=== PATIENT | male | born 1980 | race Caucasian/White ===

== ENCOUNTER 2023-02-12 19:35 | Emergency (ER) | payer OTHER, SELFPAY ==
[2023-02-12] VITALS (7 sets, daily range): BP systolic 122–131; BP diastolic 74–89; PULSE 93; RESP 16; TEMP 36.5; O2SAT 98–100; BMI 21.3
--- NOTE | 2023-02-12 19:53 | ED_ITS ---
HPI - Abdominal Pain General Chief Complaint: Abdominal Pain Stated Complaint: ABDOMINAL PAIN, FEVER AT NIGHT, HEADACHE Time Seen by Provider: 02/12/23 19:44 Source: patient Mode of arrival: walk-in History of Present Illness HPI narrative: past history of substance abuse. polysubstance abuse. Denies past ETOH abuse. States he would use whatever he could get his hands on. Last used drugs 3 weeks ago. Is currently on suboxone. Presents complaining of looking jaundiced for past 3 days and discomfort RUQ. No vomiting or diarrhea. MD elicited complaint: Reports abdominal pain Related Data Home Medications Medication Instructions Recorded Confirmed buprenorphine 8 mg-naloxone 2 mg 2 film sublingual Q24H 02/12/23 02/15/23 sublingual film docusate sodium 100 mg capsule 100 mg PO DAILY PRN constipation 02/12/23 02/15/23 (Colace) loratadine 10 mg tablet 10 mg PO DAILY PRN allergy symptoms 02/12/23 02/15/23 polyethylene glycol 3350 17 17 g PO DAILY PRN constipation 02/12/23 02/15/23 gram/dose oral powder (ClearLax) trazodone 50 mg tablet 50 mg PO DAILY 02/15/23 02/15/23 Allergies Allergy/AdvReac Type Severity Reaction Status Date / Time No Known Drug Allergies Allergy Verified 02/15/23 13:45 Review of Systems ROS Status of ROS 10 or more systems reviewed and unremark able except as noted in history and below [facility] Social History Smoking status: Former smoker Exam Constitutional Vital Signs, click to edit/add: Last Vital Signs Temp 97.7 F 02/12/23 19:40 Pulse 93 H 02/12/23 19:40 Resp 16 02/12/23 19:40 BP 122/88 02/12/23 23:35 Pulse Ox 98 02/12/23 22:42 O2 Del Method Room Air 02/12/23 19:40 Common normals: no apparent distress, oriented x3, no limitations, alert and well nourished Eye Common normals: EOMs intact bilaterally Other: mild sclera icterus Respiratory Common normals: normal respiratory effort, no retractions, no use of accessory muscles and clear to auscultation bilaterally Cardio Common normals: regular rate, regular rhythm, S1 normal heart sound and S2 normal heart sound GI Other: mild RUQ tenderness Extremity Common normals: normal to inspection and full ROM Neuro Common normals: oriented x3, moves all extremities, no focal motor deficits and no sensory deficits noted Psych Appearance: grossly normal Course Vital Signs Vital signs: Vital Signs Temperature 97.7 F 02/12/23 19:40 Pulse Rate 93 H 02/12/23 19:40 Respiratory Rate 16 02/12/23 19:40 Blood Pressure 131/89 02/12/23 19:40 Pulse Oximetry 100 02/12/23 19:40 Oxygen Delivery Method Room Air 02/12/23 19:40 Temperature 97.7 F 02/12/23 19:40 Pulse Rate 93 H 02/12/23 19:40 Respiratory Rate 16 02/12/23 19:40 Blood Pressure 122/88 02/12/23 23:35 Pulse Oximetry 98 02/12/23 22:42 Oxygen Delivery Method Room Air 02/12/23 19:40 MDM - Abdominal Pain Lab Data Labs: Lab Results 02/12/23 Range/Units 19:48 WBC 6.4 (4.0-11.0) 10^3/uL RBC 5.37 (4.70-6.10) 10^6/uL Hgb 14.7 (14.0-18.0) g/dL Hct 45.0 (42.0-54.0) % MCV 83.8 (80.0-94.0) fL MCH 27.4 (25.9-34.0) pg MCHC 32.7 (29.9-35.2) g/dL RDW 13.7 (11.0-15.0) % Plt Count 268 (150-450) 10^3/uL MPV 10.6 (9.5-13.5) fL Neut % (Auto) 38.7 L (43.0-75.0) % Lymph % (Auto) 45.0 (20.5-60.0) % [place] % (Auto) 11.6 (1.7-12.0) % Eos % (Auto) 2.8 (0.9-7.0) % Baso % (Auto) 1.7 (0.2-2.0) % Neut # (Auto) 2.5 (1.4-6.5) 10^3/uL Lymph # (Auto) 2.9 (1.2-3.8) 10^3/uL [place] # (Auto) 0.7 (0.3-0.8) 10^3/uL Eos # (Auto) 0.2 (0.0-0.7) 10^3/uL Baso # (Auto) 0.1 (0.0-0.1) 10^3/uL Abs Immat Gran (auto) 0.01 (0.00-0.03) 10^3/uL Imm/Tot Granulo (auto) 0.2 (0.0-0.5) % Sodium 135 L (136-145) mmol/L Potassium 3.5 (3.5-5.1) mmol/L Chloride 96 L (98-107) mmol/L Carbon Dioxide 34.1 H (21.0-32.0) mmol/L Anion Gap 8.4 BUN 15.0 (7.0-18.0) mg/dL Creatinine 0.86 (0.70-1.30) mg/dL Est GFR ( Amer) >60 (>=60) Est GFR (Non-Af Amer) >60 (>=60) BUN/Creatinine Ratio 17.4 Glucose 118 H (74-106) mg/dL Calcium 9.0 (8.5-10.1) mg/dL Total Bilirubin 4.2 H (0.2-1.0) mg/dL AST 1225 H* (15-37) U/L ALT 1847 H* (16-63) U/L Alkaline Phosphatase 255 H (46-116) U/L Total Protein 8.0 (6.4-8.2) g/dL Albumin 3.7 (3.4-5.0) g/dL Globulin 4.3 g/dL Albumin/Globulin Ratio 0.9 Urine Color Dk. orange (YELLOW) Urine Clarity Clear (CLEAR) Urine pH 7.0 (5.0-9.0) Ur Specific [place] 1.020 (1.005-1.025) Urine Protein Negative (NEG/TRACE) mg/dL Urine Glucose (UA) Negative (NEGATIVE) mg/dL Urine Ketones Negative (NEGATIVE) mg/dL Urine Occult Blood Negative (NEGATIVE) Urine Nitrite Negative (NEGATIVE) Urine Bilirubin Moderate A (NEGATIVE) Urine Urobilinogen 4.0 A (0.2-1.0) EU/dL Ur Leukocyte Esterase Negative (NEGATIVE) Urine Opiates Screen Negative (NEGATIVE) Ur Buprenorphine Scrn Positive A (NEGATIVE) Ur Oxycodone Screen Negative (NEGATIVE) Urine Methadone Screen Negative (NEGATIVE) Ur Barbiturates Screen Negative (NEGATIVE) U Tricyclic Antidepress Negative (NEGATIVE) Ur Phencyclidine Scrn Negative (NEGATIVE) Ur Amphetamines Screen Negative (NEGATIVE) U Methamphetamines Scrn Negative (NEGATIVE) U Benzodiazepines Scrn Negative (NEGATIVE) Urine Cocaine Screen Negative (NEGATIVE) U Cannabinoids Screen Negative (NEGATIVE) Imaging Data CT scan - abdomen: Radiologist's impression: [phone] Patient Name: NESS NEGRETE MRN: [facility]:[id number] date: 1980 Sex: M Assigned Patient Location: ER Current Patient Location: ER Accession/Order Number: [id number] Exam Date: 02/12/2023 21:29 Report Date: 02/12/2023 22:09 At the request of: REMINGTON BEE Procedure: CT abdomen pelvis w con EXAMINATION: CT abdomen pelvis w con, 02/12/2023 6:29 PM PST HISTORY: hepatitis COMPARISON: None. TECHNIQUE: CT scan of the abdomen and pelvis was performed with IV contrast. CT dose reduction technique was used, including Automated Exposure Control. FINDINGS: Lung: No significant finding. Liver: Periportal edema. Gallbladder: The gallbladder is decompressed. Nondilated common bile duct. Nondilated pancreatic duct. No evidence of choledocholithiasis. Spleen: No significant finding. Pancreas: No significant finding. Adrenal glands: No significant finding. Kidneys, ureters and bladder: No significant finding. Bowel: Normal appendix. No evidence of bowel obstruction. Colonic stool burden. Peritoneum/retroperitoneum: No significant finding. Lymph nodes: Enlarged periportal lymph nodes, for example 2.4 x 3.5 cm lymph node on series 3 image 48. Vessels: No significant finding. Body wall: No significant finding. Reproductive: No significant finding. Bones: Right L5 pars defect. CT/CT abdomen pelvis w con IMPRESSION: Very large periportal lymph nodes and mild periportal edema are compatible with hepatitis. Discharge Plan Discharge Chief Complaint: Abdominal Pain Clinical Impression: Hepatitis Patient Disposition: Home, Self-Care Prescriptions / Home Meds: No Action buprenorphine-naloxone 8-2 mg film 2 film sublingual Q24H docusate sodium [Colace] 100 mg capsule 100 mg PO DAILY PRN (Reason: constipation) loratadine 10 mg tablet 10 mg PO DAILY PRN (Reason: allergy symptoms) polyethylene glycol 3350 [ClearLax] 17 gram/dose powder 17 g PO DAILY PRN (Reason: constipation) trazodone 50 mg tablet 50 mg PO DAILY Instructions: Hepatitis C (ED) Additional Instructions: have blood work rechecked Wednesday. Follow up with Dr Dash early next week. Return if increasing pain or any worsening Stand Alone Forms: Portal Instructions Referrals: Physician,Non-Staff, MD [Primary Care Provider] - 1 week Discharge Date/Time: 02/12/23 23:54
[2023-02-12 20:01] LABS: Bilirubin Urine MODERATE (NEGATIVE); Blood Urine NEGATIVE (NEGATIVE); Clarity Urine CLEAR (CLEAR); Color Urine DK. ORANGE (YELLOW); Glucose Urine UA NEGATIVE (NEGATIVE); Ketones Urine NEGATIVE (NEGATIVE); Leukocyte Esterase Urine NEGATIVE (NEGATIVE); Nitrite Urine NEGATIVE (NEGATIVE); Protein Urine NEGATIVE (NEG/TRACE)
[2023-02-12 20:02] LABS: Basophils Absolute Auto 0.1 10^3/uL (0.0-0.1); Basophils Percent Auto 1.7 % (0.2-2.0); Eosinophils Absolute Auto 0.2 10^3/uL (0.0-0.7); Eosinophils Percent Auto 2.8 % (0.9-7.0); Hemoglobin 14.7 g/dL (14.0-18.0); Immature Granulocytes Abs Auto 0.01 10^3/uL (0.00-0.03); Immature Granulocytes Pct Auto 0.2 % (0.0-0.5); Lymphocytes Absolute Auto 2.9 10^3/uL (1.2-3.8); Mean Corpuscular HGB Conc 32.7 g/dL (29.9-35.2); Mean Corpuscular Hemoglobin 27.4 pg (25.9-34.0); Mean Corpuscular Volume 83.8 fL (80.0-94.0); Mean Platelet Volume 10.6 fL (9.5-13.5); Monocytes Absolute Auto 0.7 10^3/uL (0.3-0.8); Monocytes Percent Auto 11.6 % (1.7-12.0); Neutrophils Absolute Auto 2.5 10^3/uL (1.4-6.5); Neutrophils Percent Auto 38.7 % (43.0-75.0); Platelet Count 268 10^3/uL (150-450); Red Blood Count 5.37 10^6/uL (4.70-6.10); Red Cell Distribution Width 13.7 % (11.0-15.0); White Blood Count 6.4 10^3/uL (4.0-11.0)
[2023-02-12 20:03] LABS: Urine Microscopic Indicated NO
[2023-02-12 20:10] LABS: Amphetamine Screen Urine NEGATIVE (NEGATIVE); Barbiturates Screen Urine NEGATIVE (NEGATIVE); Benzodiazepines Screen Urine NEGATIVE (NEGATIVE); Buprenorphine Screen Urine POSITIVE (NEGATIVE); Cannabinoid Screen Urine NEGATIVE (NEGATIVE); Cocaine Screen Urine NEGATIVE (NEGATIVE); Methadone Screen Urine NEGATIVE (NEGATIVE); Methamphetamines Screen Urine NEGATIVE (NEGATIVE); Opiate Screen Urine NEGATIVE (NEGATIVE); Oxycodone Screen Urine NEGATIVE (NEGATIVE); Phencyclidine Screen Urine NEGATIVE (NEGATIVE); Tricyclic Antidepressant Urine NEGATIVE (NEGATIVE)
[2023-02-12 20:20] LABS: Albumin Globulin Ratio 0.9; Albumin Level 3.7 g/dL (3.4-5.0); Alkaline Phosphatase 255 U/L (46-116); Anion Gap 8.4; BUN Creatinine Ratio 17.4; Bilirubin Total 4.2 mg/dL (0.2-1.0); Carbon Dioxide 34.1 mmol/L (21.0-32.0); Chloride 96 mmol/L (98-107); Estimated GFR (African America >60 (>=60); Estimated GFR (Non-African Ame >60 (>=60); Globulin 4.3 g/dL; Glucose 118 mg/dL (74-106); Potassium 3.5 mmol/L (3.5-5.1); Sodium 135 mmol/L (136-145)
[2023-02-12 20:25] LABS: Alanine Aminotransferase 1847 U/L (16-63); Aspartate Amino Transferase 1225 U/L (15-37)
--- NOTE | 2023-02-12 21:11 | CT_ITS ---
[facility] [place] [id number] Patient Name: NESS NEGRETE MRN: [id number] date: 1980 Sex: M Assigned Patient Location: ER Current Patient Location: ER Accession/Order Number: [id number] Exam Date: 02/12/2023 21:29 Report Date: 02/12/2023 22:09 At the request of: REMINGTON BEE Procedure: CT abdomen pelvis w con EXAMINATION: CT abdomen pelvis w con, 02/12/2023 6:29 PM PST HISTORY: hepatitis COMPARISON: None. TECHNIQUE: CT scan of the abdomen and pelvis was performed with IV contrast. CT dose reduction technique was used, including Automated Exposure Control. FINDINGS: Lung: No significant finding. Liver: Periportal edema. Gallbladder: The gallbladder is decompressed. Nondilated common bile duct. Nondilated pancreatic duct. No evidence of choledocholithiasis. Spleen: No significant finding. Pancreas: No significant finding. Adrenal glands: No significant finding. Kidneys, ureters and bladder: No significant finding. Bowel: Normal appendix. No evidence of bowel obstruction. Colonic stool burden. Peritoneum/retroperitoneum: No significant finding. Lymph nodes: Enlarged periportal lymph nodes, for example 2.4 x 3.5 cm lymph node on series 3 image 48. Vessels: No significant finding. Body wall: No significant finding. Reproductive: No significant finding. Bones: Right L5 pars defect. CT/CT abdomen pelvis w con IMPRESSION: Very large periportal lymph nodes and mild periportal edema are compatible with hepatitis. Electronically authenticated by: CHI BAKER Date: 02/12/2023 22:09
[2023-02-12] MEDS: IBUPROFEN 600 MG TABLET PO (23:18)
[2023-02-12] MEDS: CALCIUM CARBONATE 500 MG (200MG ELEMENTAL) TAB CHEW 1000 MG PO (23:21)
[2023-02-17 12:09] LABS: HBsAg Screen Positive (Negative); HCV Ab Reactive (Non Reactive); Hep A Ab, IgM Negative (Negative); Hep B Core Ab, IgM Negative (Negative)
== END 2023-02-12 23:54 | disposition home or self-care (01) ==
PROVIDERS: Emergency Provider Internal Medicine
DX: K75.9 Inflammatory liver disease, unspecified (principal); Z87.891 Personal history of nicotine dependence; F11.10 Opioid abuse, uncomplicated; Z79.899 Other long term (current) drug therapy
CPT/HCPCS: 36415; 74177; 80053; 80074; 80307; 81003; 85025; 87522; 99284; Q9967

== ENCOUNTER 2023-02-15 09:40 | Outpatient (OUT) | payer OTHER, SELFPAY ==
[2023-02-15 10:49] LABS: Albumin Globulin Ratio 0.6; Albumin Level 3.2 g/dL (3.4-5.0); Alkaline Phosphatase 251 U/L (46-116); BUN Creatinine Ratio 21.7; Bilirubin Total 1.6 mg/dL (0.2-1.0); Calcium 9.1 mg/dL (8.5-10.1); Carbon Dioxide 29.1 mmol/L (21.0-32.0); Chloride 99 mmol/L (98-107); Estimated GFR (African America >60 (>=60); Estimated GFR (Non-African Ame >60 (>=60); Glucose 87 mg/dL (74-106); Potassium 5.1 mmol/L (3.5-5.1); Sodium 134 mmol/L (136-145); Total Protein 8.2 g/dL (6.4-8.2)
[2023-02-15 11:30] LABS: Alanine Aminotransferase 1164 U/L (16-63); Aspartate Amino Transferase 561 U/L (15-37)
== END 2023-02-15 09:41 | disposition home or self-care (01) ==
DX: F11.20 Opioid dependence, uncomplicated (principal)
CPT/HCPCS: 36415; 80053

== ENCOUNTER 2023-02-15 13:22 | Emergency (ER) | payer OTHER, SELFPAY ==
[2023-02-15 13:45] VITALS: BP 141/81; PULSE 88; RESP 20; TEMP 36.8; O2SAT 97; BMI 21.3
--- NOTE | 2023-02-15 13:58 | CT_ITS ---
[address] [address] Patient Name: NESS NEGRETE MRN: [id number] date: 1980 Sex: M Assigned Patient Location: ER Current Patient Location: ER Accession/Order Number: [id number] Exam Date: 02/15/2023 14:17 Report Date: 02/15/2023 14:46 At the request of: ALAINA BURNETT Procedure: CT abdomen pelvis w con EXAM: CT abdomen pelvis w con HISTORY: Elevated LFTs COMPARISON: 02/12/2023 TECHNIQUE: Axial CT images were obtained of the abdomen and pelvis with intravenous contrast. Multiplanar reconstructions were performed. ABDOMEN/PELVIS FINDINGS: Lower Chest: Minimal atelectasis or scarring is present in the right lung base. Liver: Normal enhancement and contour. Biliary/Gallbladder: Unremarkable. Pancreas: Unremarkable. Spleen: Unremarkable. Adrenal Glands: Unremarkable. Kidneys: Unremarkable. Gastrointestinal/Peritoneum: No acute abnormality. Moderate stool burden. The appendix is unremarkable. No free air or free fluid. Vascular: Unremarkable. Lymph Nodes: A lymph node at the robert hepatis measures 3.1 x 2.2 cm. Pelvic Organs: Unremarkable. Bladder: Unremarkable. Bones: No acute osseous abnormality. Soft tissues: Unremarkable. CT/CT abdomen pelvis w con IMPRESSION: 1. Stable enlarged lymph node at the robert hepatis, possibly reactive. 2. Moderate stool burden. Electronically authenticated by: JOSIANE LACY Date: 02/15/2023 14:46
--- NOTE | 2023-02-15 13:59 | ED.RECABL1 ---
HPI - Recheck/Abnormal Lab/Rx General Chief Complaint: Recheck/Abnormal Lab/Rx Stated Complaint: ABNORMAL LAB VALUE Time Seen by Provider: 02/15/23 13:23 Source: patient Mode of arrival: walk-in Limitations: no limitations History of Present Illness HPI narrative: Patient is a 42-year-old male who presents to the emergency department from local [facility] facility for the evaluation of elevated LFTs that were noted on blood work this morning. Patient has a history of IV drug use. He is currently in treatment. He has had no significant abdominal pain, vomiting or diarrhea. He is able to eat and drink without difficulty. No medications taken prior to arrival. He denies previous abdominal surgeries. He did have recent COVID infection but states his symptoms from this have gotten much better. Related Data Home Medications Medication Instructions Recorded Confirmed buprenorphine 8 mg-naloxone 2 mg 2 film sublingual Q24H 02/12/23 02/15/23 sublingual film docusate sodium 100 mg capsule 100 mg PO DAILY PRN constipation 02/12/23 02/15/23 (Colace) loratadine 10 mg tablet 10 mg PO DAILY PRN allergy symptoms 02/12/23 02/15/23 polyethylene glycol 3350 17 17 g PO DAILY PRN constipation 02/12/23 02/15/23 gram/dose oral powder (ClearLax) trazodone 50 mg tablet 50 mg PO DAILY 02/15/23 02/15/23 Allergies Allergy/AdvReac Type Severity Reaction Status Date / Time No Known Drug Allergies Allergy Verified 02/15/23 13:45 Review of Systems ROS Constitutional Denies: fever or chills Ears, nose, mouth, and throat Denies: throat pain Cardiovascular Denies: chest pain Respiratory Denies: shortness of breath or cough Gastrointestinal Reports: abdominal pain and constipation; Denies: nausea or vomiting Genitourinary Denies: painful urination Musculoskeletal Denies: back pain or neck pain Integumentary/Breast Denies: rash Neurological Denies: headache PFSH PFSH Social History Smoking status: Former smoker Exam Narrative Exam Narrative: Gen.: Awake, alert, in no distress Head: Normocephalic, atraumatic ENT: Moist mucous membranes Respiratory: No respiratory distress, lungs clear bilaterally Cardio: Regular rate and rhythm Gastrointestinal: Abdomen is soft, nondistended and nontender to palpation Extremities: Moves extremities equally Psych: Normal mood and affect Neuro: No focal neuro deficit Skin: Warm, dry, intact Constitutional Vital Signs, click to edit/add: Last Vital Signs Temp 98.2 F 02/15/23 13:45 Pulse 88 02/15/23 13:45 Resp 20 02/15/23 13:45 BP 141/81 02/15/23 13:45 Pulse Ox 97 02/15/23 13:45 O2 Del Method Room Air 02/15/23 13:45 Course Vital Signs Vital signs: Vital Signs Temperature 98.2 F 02/15/23 13:45 Pulse Rate 88 02/15/23 13:45 Respiratory Rate 20 02/15/23 13:45 Blood Pressure 141/81 02/15/23 13:45 Pulse Oximetry 97 02/15/23 13:45 Oxygen Delivery Method Room Air 02/15/23 13:45 Temperature 98.2 F 02/15/23 13:45 Pulse Rate 88 02/15/23 13:45 Respiratory Rate 20 02/15/23 13:45 Blood Pressure 141/81 02/15/23 13:45 Pulse Oximetry 97 02/15/23 13:45 Oxygen Delivery Method Room Air 02/15/23 13:45 MDM - Recheck/Abnormal Lab/Rx MDM Narrative Medical decision making narrative: Unclear why the patient was brought to the emergency department, he has no new complaints of abdominal pain, vomiting or diarrhea. Previous records show he was seen in this emergency department on 02/12/2023 for jaundice, patient did not reveal any of these symptoms to me. He is not complaining of any jaundice and does not appear clinically jaundiced at this time. He had outpatient labs this morning showing improvement but continued transaminitis. Labs at this time continue to improve and his bilirubin and LFTs are downtrending. CT of the abdomen and pelvis with no evidence of acute process, there is a moderate stool burden, likely accounting for the constipation the patient is feeling. Patient was reevaluated by attending physician and states he does have a history of hepatitis. Abdomen is soft and benign, patient has stable vital signs. He will be referred to a GI specialist to evaluate his hepatitis panel and review his lab work. He does not require admission at this time. Return to the ER if symptoms change or worsen. We are awaiting a call from [facility] to discuss his clinical presentation today. Medical Records Attestation: I reviewed the patient's medical records. Lab Data Attestation: I reviewed the patient's lab results. Labs: Lab Results 02/15/23 02/15/23 Range/Units 14:00 14:07 WBC 5.8 (4.0-11.0) 10^3/uL RBC 4.82 (4.70-6.10) 10^6/uL Hgb 13.2 L (14.0-18.0) g/dL Hct 41.0 L (42.0-54.0) % MCV 85.1 (80.0-94.0) fL MCH 27.4 (25.9-34.0) pg MCHC 32.2 (29.9-35.2) g/dL RDW 14.5 (11.0-15.0) % Plt Count 290 (150-450) 10^3/uL MPV 10.8 (9.5-13.5) fL Neut % (Auto) 34.3 L (43.0-75.0) % Lymph % (Auto) 51.5 (20.5-60.0) % [place] % (Auto) 9.1 (1.7-12.0) % Eos % (Auto) 3.4 (0.9-7.0) % Baso % (Auto) 1.4 (0.2-2.0) % Neut # (Auto) 2.0 (1.4-6.5) 10^3/uL Lymph # (Auto) 3.0 (1.2-3.8) 10^3/uL [place] # (Auto) 0.5 (0.3-0.8) 10^3/uL Eos # (Auto) 0.2 (0.0-0.7) 10^3/uL Baso # (Auto) 0.1 (0.0-0.1) 10^3/uL Abs Immat Gran (auto) 0.02 (0.00-0.03) 10^3/uL Imm/Tot Granulo (auto) 0.3 (0.0-0.5) % PT 10.9 (9.0-11.6) sec INR 1.03 Sodium 138 (136-145) mmol/L Potassium 4.6 (3.5-5.1) mmol/L Chloride 99 (98-107) mmol/L Carbon Dioxide 31.6 (21.0-32.0) mmol/L Anion Gap 12.0 BUN 16.0 (7.0-18.0) mg/dL Creatinine 0.79 (0.70-1.30) mg/dL Est GFR ( Amer) >60 (>=60) Est GFR (Non-Af Amer) >60 (>=60) BUN/Creatinine Ratio 20.3 Glucose 85 (74-106) mg/dL Calcium 9.0 (8.5-10.1) mg/dL Total Bilirubin 1.3 H (0.2-1.0) mg/dL Direct Bilirubin 1.0 H* (0.0-0.2) mg/dL AST 500 H (15-37) U/L ALT 1127 H* (16-63) U/L Alkaline Phosphatase 256 H (46-116) U/L Total Protein 8.1 (6.4-8.2) g/dL Albumin 3.6 (3.4-5.0) g/dL Globulin 4.5 g/dL Albumin/Globulin Ratio 0.8 Lipase 24.0 (16.0-77.0) U/L Urine Color Yellow (YELLOW) Urine Clarity Clear (CLEAR) Urine pH 6.5 (5.0-9.0) Ur Specific [place] 1.020 (1.005-1.025) Urine Protein Negative (NEG/TRACE) mg/dL Urine Glucose (UA) Negative (NEGATIVE) mg/dL Urine Ketones Negative (NEGATIVE) mg/dL Urine Occult Blood Negative (NEGATIVE) Urine Nitrite Negative (NEGATIVE) Urine Bilirubin Negative (NEGATIVE) Urine Urobilinogen 1.0 (0.2-1.0) EU/dL Ur Leukocyte Esterase Negative (NEGATIVE) Imaging Data CT scan - abdomen: Attestation: I have reviewed the pertinent imaging results. Radiologist's impression: Procedure: CT abdomen pelvis w con EXAM: CT abdomen pelvis w con HISTORY: Elevated LFTs COMPARISON: 02/12/2023 TECHNIQUE: Axial CT images were obtained of the abdomen and pelvis with intravenous contrast. Multiplanar reconstructions were performed. ABDOMEN/PELVIS FINDINGS: Lower Chest: Minimal atelectasis or scarring is present in the right lung base. Liver: Normal enhancement and contour. Biliary/Gallbladder: Unremarkable. Pancreas: Unremarkable. Spleen: Unremarkable. Adrenal Glands: Unremarkable. Kidneys: Unremarkable. Gastrointestinal/Peritoneum: No acute abnormality. Moderate stool burden. The appendix is unremarkable. No free air or free fluid. Vascular: Unremarkable. Lymph Nodes: A lymph node at the robert hepatis measures 3.1 x 2.2 cm. Pelvic Organs: Unremarkable. Bladder: Unremarkable. Bones: No acute osseous abnormality. Soft tissues: Unremarkable. IMPRESSION: 1. Stable enlarged lymph node at the robert hepatis, possibly reactive. 2. Moderate stool burden. Electronically authenticated by: JOSIANE LACY Date: 02/15/2023 14:46 Discharge Plan Discharge Chief Complaint: Recheck/Abnormal Lab/Rx Clinical Impression: Transaminitis Patient Disposition: Home, Self-Care Time of Disposition Decision: 15:28 Condition: Good Prescriptions / Home Meds: No Action buprenorphine-naloxone 8-2 mg film 2 film sublingual Q24H docusate sodium [Colace] 100 mg capsule 100 mg PO DAILY PRN (Reason: constipation) loratadine 10 mg tablet 10 mg PO DAILY PRN (Reason: allergy symptoms) polyethylene glycol 3350 [ClearLax] 17 gram/dose powder 17 g PO DAILY PRN (Reason: constipation) trazodone 50 mg tablet 50 mg PO DAILY Instructions: Abdominal Pain (ED) Stand Alone Forms: Portal Instructions Referrals: YULY ALAN [Physician] - As soon as possible Physician,Non-Staff, [Primary Care Provider] - 1 week
[2023-02-15 14:23] LABS: Basophils Absolute Auto 0.1 10^3/uL (0.0-0.1); Basophils Percent Auto 1.4 % (0.2-2.0); Eosinophils Absolute Auto 0.2 10^3/uL (0.0-0.7); Eosinophils Percent Auto 3.4 % (0.9-7.0); Hemoglobin 13.2 g/dL (14.0-18.0); Immature Granulocytes Abs Auto 0.02 10^3/uL (0.00-0.03); Immature Granulocytes Pct Auto 0.3 % (0.0-0.5); Lymphocytes Percent Auto 51.5 % (20.5-60.0); Mean Corpuscular HGB Conc 32.2 g/dL (29.9-35.2); Mean Corpuscular Hemoglobin 27.4 pg (25.9-34.0); Mean Corpuscular Volume 85.1 fL (80.0-94.0); Mean Platelet Volume 10.8 fL (9.5-13.5); Monocytes Absolute Auto 0.5 10^3/uL (0.3-0.8); Monocytes Percent Auto 9.1 % (1.7-12.0); Neutrophils Percent Auto 34.3 % (43.0-75.0); Platelet Count 290 10^3/uL (150-450); Red Blood Count 4.82 10^6/uL (4.70-6.10); Red Cell Distribution Width 14.5 % (11.0-15.0); White Blood Count 5.8 10^3/uL (4.0-11.0)
[2023-02-15 14:29] LABS: Bilirubin Urine NEGATIVE (NEGATIVE); Blood Urine NEGATIVE (NEGATIVE); Clarity Urine CLEAR (CLEAR); Color Urine YELLOW (YELLOW); Glucose Urine UA NEGATIVE (NEGATIVE); Ketones Urine NEGATIVE (NEGATIVE); Leukocyte Esterase Urine NEGATIVE (NEGATIVE); Nitrite Urine NEGATIVE (NEGATIVE); Protein Urine NEGATIVE (NEG/TRACE); pH Urine 6.5 (5.0-9.0)
[2023-02-15 14:30] LABS: INR 1.03; Prothrombin Time 10.9 sec (9.0-11.6)
[2023-02-15 14:31] LABS: Urine Microscopic Indicated NO
[2023-02-15 14:42] LABS: Albumin Globulin Ratio 0.8; Albumin Level 3.6 g/dL (3.4-5.0); Alkaline Phosphatase 256 U/L (46-116); Aspartate Amino Transferase 500 U/L (15-37); BUN Creatinine Ratio 20.3; Bilirubin Total 1.3 mg/dL (0.2-1.0); Carbon Dioxide 31.6 mmol/L (21.0-32.0); Chloride 99 mmol/L (98-107); Estimated GFR (African America >60 (>=60); Estimated GFR (Non-African Ame >60 (>=60); Globulin 4.5 g/dL; Glucose 85 mg/dL (74-106); Potassium 4.6 mmol/L (3.5-5.1); Sodium 138 mmol/L (136-145); Total Protein 8.1 g/dL (6.4-8.2)
[2023-02-15 14:48] LABS: Alanine Aminotransferase 1127 U/L (16-63)
== END 2023-02-15 15:49 | disposition home or self-care (01) ==
PROVIDERS: Physician Assistant; Emergency Provider Emergency Medicine
DX: R74.01 Elevation of levels of liver transaminase levels (principal); F11.20 Opioid dependence, uncomplicated; Z86.16 Personal history of COVID-19; Z87.891 Personal history of nicotine dependence; Z86.19 Personal history of other infectious and parasitic diseases
CPT/HCPCS: 36415; 74177; 80048; 80053; 80074; 80076; 81003; 83690; 85025; 85610; 99284; Q9967

== ENCOUNTER 2023-02-25 09:33 | Outpatient (OUT) | payer OTHER, SELFPAY ==
--- OUTSIDE RECORDS SUMMARY | 2023-02-25 09:38 | XMS_ITS | CCD ---
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 Role Phone PROVIDER, UNKNOWN Attending Unavailable PROVIDER, UNKNOWN Admitting Unavailable BARRY DUFFY Primary Care Unavailable DR CHINEDU CESAR Consulting Unavailable [facility] [place] Primary Care Unavailable DARIN GARY Attending Unavailable DARIN GARY Admitting Unavailable NO FAMILY, PHYSICIAN Primary Care Provider MD Meera Crum Attending Provider NO FAMILY, PHYSICIAN Primary Care Provider MD Joshua Henley Emergency Provider [phone] NO FAMILY, PHYSICIAN Primary Care Unavailable Meera Sullivan Attending Unavailable Meera Sullivan Admitting Unavailable Joshua Burger Attending Unavailable Joshua Burger Admitting Unavailable NO FAMILY, PHYSICIAN Primary Care Unavailable Medications Current Medications Medication Drug Class(es) Dates Sig (Normalized) Sig (Original) buprenorphine 8 mg / naloxone 2 mg sublingual film (1 source) Partial Opioid Agonist, Opioid Antagonist Start: 02-16-2023 Buprenorphine-Nal oxone Active 1 FILM SUBLINGUAL Daily February 16, 2023 12:00am traZODone hydrochloride 50 mg oral tablet (1 source) Serotonin Reuptake Inhibitor Start: 02-16-2023 take 50 mg by mouth once daily at bedtime Trazodone Active 50 MG PO Daily at bedtime February 16, 2023 12:00am Problems Problem Classification Problem Date Documented Da te Episodic/Chronic Conduction disorders (1 source) Long QT syndrome; Translations: [Long QT syndrome] Onset: 05-11-2022 Chronic Other liver diseases (1 source) Enzyme level - finding; Translations: [Elevated transaminase measurement] 02-16-2023 Episodic Other nervous system disorders (1 source) Lesion of ulnar nerve, left upper limb; Translations: [LESION ULNAR NERVE LEFT UPPER LIMB] Onset: 02-16-2022 Chronic Other nervous system disorders (4 sources) Paresthesia of skin; Translations: [PARESTHESIA OF SKIN] Onset: 02-15-2022 Episodic Substance-related disorders (2 sources) Nicotine dependence, cigarettes, uncomplicated; Translations: [Opioid abuse, uncomplicated] Onset: 02-16-2022 Chronic Results Test Name Value Interpretation Reference Range Facility Alanine aminotransferase [En zymatic activity/volume] in Serum or PlasmaOrdered By: Mckenzie Cherry on 02-16-2023 ALT [Catalytic activity/Vol] 747 U/L 7-52 [facility] Albumin [Mass/volume] in Ser um or Plasma by Bromocresol green (BCG) dye binding methoOrdered By: Mckenzie Cherry on 02-16-2023 Albumin BCG dye [Mass/Vol] 4.7 g/dL 3.5-5.7 [facility] Alkaline phosphatase [Enzyma tic activity/volume] in Serum or PlasmaOrdered By: Mckenzie Cherry on 02-16-2023 ALP [Catalytic activity/Vol] 231 U/L 34-104 [facility] Anisocytosis LM Ql (Bld)Orde red By: Mckenzie Cherry on 02-16-2023 Anisocytosis Ql (Bld) Slight [facility] Aspartate aminotransferase [ Enzymatic activity/volume] in Serum or PlasmaOrdered By: Mckenzie Cherry on 02-16-2023 AST [Catalytic activity/Vol] 301 U/L 13-39 [facility] Automated erythrocytes count in urine sediment (number/area)Ordered By: Mckenzie Cherry on 02-16-2023 RBC Auto (Urine sed) [#/Area] 0-1 [HPF] 0-4 [facility] Automated leukocytes count i n urine sediment (number/area)Ordered By: Mckenzie Cherry on 02-16-2023 WBC Auto (Urine sed) [#/Area] 3-4 [HPF] 0-4 [facility] Basophils Auto (Bld) [#/Vol] Ordered By: Mckenzie Cherry on 02-16-2023 Basophils (Bld) [#/Vol] 0.2 10*3/uL 0.0-0.2 [facility] Basophils/100 WBC Auto (Bld) Ordered By: Mckenzie Cherry on 02-16-2023 Basophils/100 WBC (Bld) 3.1 % . [facility] Bilirubin Test strip Ql (U)O rdered By: Mckenzie Cherry on 02-16-2023 Bilirubin Ql (U) Negative Negative [facility] Bilirubin.total [Mass/volume ] in Serum or PlasmaOrdered By: Mckenzie Cherry on 02-16-2023 Bilirubin [Mass/Vol] 1.5 mg/dL 0.3-1.0 [facility] Comment on above: Samples from patient s who have taken Naproxen have shown spurious elevation in Total Bilirubin levels. A metabolite of Naproxen, O-desmethylnaproxen, has been shown to interfere with the Juan-Elvia method for measuring Total Bilirubin. Calcium [Mass/volume] in Ser um or PlasmaOrdered By: Mckenzie Cherry on 02-16-2023 Calcium [Mass/Vol] 9.7 mg/dL 8.6-10.[address] [facility] Carbon dioxide, total [Moles /volume] in Serum or PlasmaOrdered By: Mckenzie Cherry on 02-16-2023 CO2 [Moles/Vol] 28.3 mmol/L 21.0-31.0 [facility] Chloride [Moles/volume] in S pilar or PlasmaOrdered By: Mckenzie Cherry on 02-16-2023 Chloride [Moles/Vol] 100 mmol/L 98-107 [facility] Color Auto (U)Ordered By: Co raj Cherry on 02-16-2023 Color (U) Yellow Yellow [facility] Comprehensive Metabolic Pane haroldo 02-16-2023 Albumin [Mass/Vol] 4.7 g/dL Normal 3.5-5.[address] [facility] Comment on above: Performed By: #### S CAN CBC, CMP #### [facility] [address] [place] [address] Albumin/Globulin [Mass ratio] 1.2 {ratio} Normal [facility] Comment on above: Performed By: #### S CAN CBC, CMP #### [facility] [address] ALP [Catalytic activity/Vol] 231 U/L High 34-104 [facility] Comment on above: Performed By: #### S CAN CBC, CMP #### [facility] [address] ALT [Catalytic activity/Vol] 747 U/L High 7-52 [facility] Comment on above: Performed By: #### S CAN CBC, CMP #### [facility] [address] Anion gap [Moles/Vol] 12.4 mmol/L Normal 6.0-15.0 [facility] Comment on above: Performed By: #### S CAN CBC, CMP #### [facility] [address] AST [Catalytic activity/Vol] 301 U/L High 13-39 [facility] Comment on above: Performed By: #### S CAN CBC, CMP #### [facility] [address] Bilirubin [Mass/Vol] 1.5 mg/dL High 0.3-1.0 [facility] Comment on above: Result Comment: Samp les from patients who have taken Naproxen have shown spurious elevation in Total Bilirubin levels. A metabolite of Naproxen, O-desmethylnaproxen, has been shown to interfere with the Jendrassik-Grof method for measuring Total Bilirubin. Performed By: #### S CAN CBC, CMP #### [facility] [address] [place] [address] [place] Calcium [Mass/Vol] 9.7 mg/dL Normal 8.6-10.[address] [facility] Comment on above: Performed By: #### S CAN CBC, CMP #### [facility] [address] [place] [address] [place] Chloride [Moles/Vol] 100 mmol/L Normal 98-107 [facility] Comment on above: Performed By: #### S CAN CBC, CMP #### [facility] [address] CO2 [Moles/Vol] 28.3 mmol/L Normal 21.0-31.0 [facility] Comment on above: Performed By: #### S CAN CBC, CMP #### [facility] [address] [place] [address] [place] Creatinine [Mass/Vol] 0.73 mg/dL Normal 0.70-1.30 [facility] Comment on above: Performed By: #### S CAN CBC, CMP #### [facility] [address] [place] [address] [place] Creatinine Clr Calc Pharmacy 125.02 [facility] Comment on above: Result Comment: PERF ORMED BY: [place] [address] PATHOLOGIST DINKEY SKINNER CHRISTOPHER CARTER M.D. Performed By: #### S CAN CBC, CMP #### [place] [address] [place] GFR/1.73 sq M.predicted MDRD (S/P/Bld) [Vol rate/Area] mL/min/{1.73_m2} [facility] Comment on above: Performed By: #### S CAN CBC, CMP #### [facility] [address] [place] [address] Globulin (S) [Mass/Vol] 3.9 g/dL Normal [facility] Comment on above: Performed By: #### S CAN CBC, CMP #### [facility] [address] Glucose [Mass/Vol] 89 mg/dL Normal 70-[address] [facility] Comment on above: Result Comment: [place] Glucose Reference Range is dependent on time and content of last meal. Glucose of more than 200 mg/dL in a nonstressed, ambulatory subject supports the diagnosis of Diabetes Mellitus. ADA recommended reference range Performed By: #### S CAN CBC, CMP #### [facility] [address] [place] [address] [place] Potassium [Moles/Vol] 4.7 mmol/L Normal 3.5-5.1 [facility] Comment on above: Performed By: #### S CAN CBC, CMP #### [facility] [address] Protein [Mass/Vol] 8.6 g/dL Normal 6.4-8.[address] [facility] Comment on above: Performed By: #### S CAN CBC, CMP #### [facility] [address] Sodium [Moles/Vol] 136 mmol/L Normal 136-[address] [facility] Comment on above: Performed By: #### S CAN CBC, CMP #### [facility] [address] Urea nitrogen [Mass/Vol] 16 mg/dL Normal 7-25 [facility] Comment on above: Performed By: #### S CAN CBC, CMP #### [facility] [address] [place] [address] Creatinine [Mass/volume] in Serum or PlasmaOrdered By: Mckenzie Cherry on 02-16-2023 Creatinine [Mass/Vol] 0.73 mg/dL 0.70-1.30 [facility] Dipstick and Microscopicon 1 04-19-2022 Appearance (U) Clear Normal Clear [facility] Comment on above: Order Comment: Name Collection Type:: Clean-Voided Midstream Performed By: #### A DDONUAPLUS #### [place] [address] [place] Bacteria,Urine None Seen Normal None Seen [facility] Comment on above: Order Comment: Name Collection Type:: Clean-Voided Midstream Performed By: #### A DDONUAPLUS #### [facility] [address] [place] [address] [place] Bilirubin,Urine Negative Normal Negative [facility] Comment on above: Order Comment: Name Collection Type:: Clean-Voided Midstream Performed By: #### A DDONUAPLUS #### [facility] [address] [place] [address] [place] Color (U) Yellow Normal Yellow [facility] Comment on above: Order Comment: Name Collection Type:: Clean-Voided Midstream Performed By: #### A DDONUAPLUS #### [place] [address] [place] Glucose Ql (U) Normal Normal Normal [facility] Comment on above: Order Comment: Name Collection Type:: Clean-Voided Midstream Performed By: #### A DDONUAPLUS #### [place] [address] [place] Hyaline Casts,Urine None Seen Normal 0-8 [facility] Comment on above: Order Comment: Name Collection Type:: Clean-Voided Midstream Result Comment: PERF ORMED BY: [place] [address] PATHOLOGIST DINKEY SKINNER CHRISTOPHER CARTER M.D. Performed By: #### A DDONUAPLUS #### [place] [address] [place] Ketones Ql (U) Negative Normal Negative [facility] Comment on above: Order Comment: Name Collection Type:: Clean-Voided Midstream Performed By: #### A DDONUAPLUS #### [place] [address] [place] Leukocyte esterase Test strip Ql (U) 1+ High Negative [facility] Comment on above: Order Comment: Name Collection Type:: Clean-Voided Midstream Performed By: #### A DDONUAPLUS #### [place] [address] [place] Nitrite,Urine Negative Normal Negative [facility] Comment on above: Order Comment: Name Collection Type:: Clean-Voided Midstream Performed By: #### A DDONUAPLUS #### [place] [address] [place] Occult Blood,Urine Negative Normal Negative [facility] Comment on above: Order Comment: Name Collection Type:: Clean-Voided Midstream Result Comment: PERF ORMED BY: [place] [address] PATHOLOGIST DINKEY SKINNER CHRISTOPHER CARTER M.D. Performed By: #### A DDONUAPLUS #### [address] pH (U) 7.5 [pH] Normal 5.0-9.0 [facility] Comment on above: Order Comment: Name Collection Type:: Clean-Voided Midstream Performed By: #### A DDONUAPLUS #### [address] Protein,Urine Negative Normal Negative [facility] Comment on above: Order Comment: Name Collection Type:: Clean-Voided Midstream Performed By: #### A DDONUAPLUS #### [address] RBC LM.HPF (Urine sed) [#/Area] 0 /[HPF] Normal 0-4 [facility] Comment on above: Order Comment: Name Collection Type:: Clean-Voided Midstream Performed By: #### A DDONUAPLUS #### [address] Specificy [place],Urine 1.017 Normal 1.001-1.030 [facility] Comment on above: Order Comment: Name Collection Type:: Clean-Voided Midstream Performed By: #### A DDONUAPLUS #### [address] Squamous Epithelial Cell,Urine 0-1 Normal 0-2 [facility] Comment on above: Order Comment: Name Collection Type:: Clean-Voided Midstream Performed By: #### A DDONUAPLUS #### [address] Urobilinogen,Urine Normal Normal Normal [facility] Comment on above: Order Comment: Name Collection Type:: Clean-Voided Midstream Performed By: #### A DDONUAPLUS #### [address] WBC,Urine 3-4 Normal 0-4 [facility] Comment on above: Order Comment: Name Collection Type:: Clean-Voided Midstream Performed By: #### A DDONUAPLUS #### [facility] [address] Eosinophils Auto (Bld) [#/Vo l]Ordered By: Mckenzie Cherry on 02-16-2023 Eosinophils (Bld) [#/Vol] 0.1 10*3/uL 0.0-0.45 [facility] Eosinophils/100 WBC Auto (Bl d)Ordered By: Mckenzie Cherry on 02-16-2023 Eosinophils/100 WBC (Bld) 1.5 % . [facility] Erythrocyte distribution wid th Auto (RBC) [Ratio]Ordered By: Mckenzie Safscnori on 02-16-2023 Erythrocyte distribution width (RBC) [Ratio] 15.7 % 12.0-14.8 [facility] Globulin Calc (S) [Mass/Vol] Ordered By: Mckenzie Cherry on 02-16-2023 Globulin (S) [Mass/Vol] 3.9 g/dL [facility] Glucose [Mass/volume] in Ser um or PlasmaOrdered By: Mckenzie Keescnori on 02-16-2023 Glucose [Mass/Vol] 89 mg/dL 70-[address] [facility] Comment on above: ADA recommended refe rence rangeRandom Glucose Reference Range is dependent on time and content of last meal. Glucose of more than 200 mg/dL in a nonstressed, ambulatory subject supports the diagnosis of Diabetes Mellitus. Hematocrit Auto (Bld) [Volum e fraction]Ordered By: Mckenzie Cherry on 02-16-2023 Hematocrit (Bld) [Volume fraction] 45.5 % 38.8-50.0 [facility] Hemoglobin [Mass/volume] in BloodOrdered By: Mckenzie Cherry on 02-16-2023 Hemoglobin (Bld) [Mass/Vol] 14.9 g/dL 13.0-17.0 [facility] Ketones Auto test strip (U) [Mass/Vol]Ordered By: Mckenzie Cherry on 02-16-2023 Ketones (U) [Mass/Vol] Negative Negative [facility] - UrinalysisOrder ed By: Mckenzie Cherry on 02-16-2023 Hyaline casts LM Ql (Urine sed) None seen [LPF] 0-8 [facility] Leukocytes [#/volume] correc paul for nucleated erythrocytes in Blood by Automated counOrdered By: Mckenzie Cherry on 02-16-2023 WBC corrected for nucl RBC Auto (Bld) [#/Vol] 7.9 10*3/uL 4.1-10.5 [facility] Lymphocytes Auto (Bld) [#/Vo l]Ordered By: Mckenzie Cherry on 02-16-2023 Lymphocytes (Bld) [#/Vol] 2.6 10*3/uL 1.00-4.8 [facility] Lymphocytes/100 WBC Auto (Bl d)Ordered By: Mckenzie Cherry on 02-16-2023 Lymphocytes/100 WBC (Bld) 33.3 % . [facility] MCH Auto (RBC) [Entitic mass ]Ordered By: Mckenzie Cherry on 02-16-2023 MCH (RBC) [Entitic mass] 27.2 pg 27.5-35.2 [facility] MCHC Auto (RBC) [Mass/Vol]Or dered By: Mckenzie Cherry on 02-16-2023 MCHC (RBC) [Mass/Vol] 32.8 g/dL 32.5-35.6 [facility] MCV Auto (RBC) [Entitic vol] Ordered By: Mckenzie Cherry on 02-16-2023 MCV (RBC) [Entitic vol] 82.9 fL 83.5-101 [facility] Monocyte distribution width [Entitic volume] in Blood by AutomatedOrdered By: Mckenzie Cherry on 02-16-2023 Monocyte distribution width Auto (Bld) [Entitic vol] 19.77 % 0.00-20.00 [facility] Comment on above: For adults in ED, MD W > 20.0 may be associated with a higher risk of sepsis during the first 12 hrs of hospital admission Monocytes Auto (Bld) [#/Vol] Ordered By: Mckenzie Cherry on 02-16-2023 Monocytes (Bld) [#/Vol] 0.3 10*3/uL 0.0-0.8 [facility] Monocytes/100 WBC Auto (Bld) Ordered By: Mckenzie Cherry on 02-16-2023 Monocytes/100 WBC (Bld) 4.1 % . [facility] Neutrophils Auto (Bld) [#/Vo l]Ordered By: Mckenzie Cherry on 02-16-2023 Neutrophils (Bld) [#/Vol] 4.6 10*3/uL 1.8-7.7 [facility] Neutrophils/100 WBC Auto (Bl d)Ordered By: Mckenzie Cherry on 02-16-2023 Neutrophils/100 WBC (Bld) 58.0 % . [facility] Nitrite Test strip Ql (U)Ord ered By: Mckenzie Cherry on 02-16-2023 Nitrite Ql (U) Negative Negative [facility] No Panel InformationOrdered By: Mckenzie Cherry on 02-16-2023 Estimated GFR (CKD-EPI) > 60.0 mL/Min [facility] Creatinine Clearance (Chem 125.02 [facility] Nucleated erythrocytes [Pres ence] in Blood by Automated countOrdered By: Mckenzie Cherry on 02-16-2023 Nucleated RBC Auto Ql (Bld) 0.5 /100{WBC} 0-0.5 [facility] Platelet adequacy [Presence] in Blood by Light microscopyOrdered By: Mckenzie Cherry on 02-16-2023 Platelets LM Ql (Bld) Normal Normal [facility] Platelet mean volume Auto (B ld) [Entitic vol]Ordered By: Mckenzie Cherry on 02-16-2023 Platelet mean volume (Bld) [Entitic vol] 9.3 fL 6.6-10.1 [facility] Platelet morphology finding [Identifier] in BloodOrdered By: Mckenzie Cherry on 02-16-2023 Platelet morphology finding Nom (Bld) Normal Normal [facility] Platelets Auto (Bld) [#/Vol] Ordered By: Mckenzie Cherry on 02-16-2023 Platelets (Bld) [#/Vol] 310 10*3/uL 150-450 [facility] Potassium [Moles/volume] in Serum or PlasmaOrdered By: Mckenzie Cherry on 02-16-2023 Potassium [Moles/Vol] 4.7 mmol/L 3.5-5.1 [facility] Protein Auto test strip (U) [Mass/Vol]Ordered By: Mckenzie Cherry on 02-16-2023 Protein (U) [Mass/Vol] Negative Negative [facility] Protein [Mass/volume] in Ser um or PlasmaOrdered By: Mckenzie Cherry on 02-16-2023 Protein [Mass/Vol] 8.6 g/dL 6.4-8.[address] [facility] RBC Auto (Bld) [#/Vol]Ordere d By: Mckenzie Cherry on 02-16-2023 RBC (Bld) [#/Vol] 5.49 10*6/uL 3.90-5.60 [facility] RBC morphologyOrdered By: Co raj Cherry on 02-16-2023 RBC morphology finding Nom (Bld) N/A [facility] Red blood cell stomatocyte d etectionOrdered By: Mckenzie Cherry on 02-16-2023 Stomatocytes LM Ql (Bld) Slight [facility] Scan and CBCon 02-16-2023 Anisocytosis Ql (Bld) Slight Normal [facility] Comment on above: Order Comment: WILIAM nash is gonna try with ultrasound AB 1751 Performed By: #### S CAN CBC, CMP #### [facility] [address] [place] [address] [place] Basophils (Bld) [#/Vol] 0.2 10*3/uL Normal 0.0-0.2 [facility] Comment on above: Order Comment: WILIAM nash is gonna try with ultrasound AB 1751 Performed By: #### S CAN CBC, CMP #### [facility] [address] [place] [id number] [place] Basophils/100 WBC (Bld) 3.1 % Normal . [facility] Comment on above: Order Comment: WILIAM conden is gonna try with ultrasound AB 1751 Performed By: #### S CAN CBC, CMP #### [facility] [address] [place] [id number] [place] Eosinophils (Bld) [#/Vol] 0.1 10*3/uL Normal 0.0-0.45 [facility] Comment on above: Order Comment: RN Paulina conden is gonna try with ultrasound AB 1751 Performed By: #### S CAN CBC, CMP #### [place] [address] [place] Eosinophils/100 WBC (Bld) 1.5 % Normal . [facility] Comment on above: Order Comment: RN Paulina conden is gonna try with ultrasound AB 1751 Performed By: #### S CAN CBC, CMP #### [address] Erythrocyte distribution width (RBC) [Ratio] 15.7 % High 12.0-14.8 [facility] Comment on above: Order Comment: RN Paulina conden is gonna try with ultrasound AB 1751 Performed By: #### S CAN CBC, CMP #### [address] Hematocrit (Bld) [Volume fraction] 45.5 % Normal 38.8-50.0 [facility] Comment on above: Order Comment: RN Paulina conden is gonna try with ultrasound AB 1751 Performed By: #### S CAN CBC, CMP #### [place] [address] [place] Hemoglobin (Bld) [Mass/Vol] 14.9 g/dL Normal 13.0-17.0 [facility] Comment on above: Order Comment: RN Paulina conden is gonna try with ultrasound AB 1751 Performed By: #### S CAN CBC, CMP #### [place] [address] [place] Lymphocytes (Bld) [#/Vol] 2.6 10*3/uL Normal 1.00-4.8 [facility] Comment on above: Order Comment: RN Paulina conden is gonna try with ultrasound AB 1751 Performed By: #### S CAN CBC, CMP #### [place] [address] [place] Lymphocytes/100 WBC (Bld) 33.3 % Normal . [facility] Comment on above: Order Comment: RN Paulina conden is gonna try with ultrasound AB 1751 Performed By: #### S CAN CBC, CMP #### [facility] [address] MCH (RBC) [Entitic mass] 27.2 pg Low 27.5-35.2 [facility] Comment on above: Order Comment: RN Paulina conden is gonna try with ultrasound AB 1751 Performed By: #### S CAN CBC, CMP #### [facility] [address] MCV (RBC) [Entitic vol] 82.9 fL Low 83.5-101 [facility] Comment on above: Order Comment: RN Paulina conden is gonna try with ultrasound AB 1751 Performed By: #### S CAN CBC, CMP #### [facility] [address] Mean Corpuscular HGB Conc 32.8 g/dL Normal 32.5-35.6 [facility] Comment on above: Order Comment: RN Paulina conden is gonna try with ultrasound AB 1751 Performed By: #### S CAN CBC, CMP #### [place] [address] [place] Monocytes (Bld) [#/Vol] 0.3 10*3/uL Normal 0.0-0.8 [facility] Comment on above: Order Comment: WILIAM Paulina nash is gonna try with ultrasound AB 1751 Performed By: #### S CAN CBC, CMP #### [facility] [address] [place] [address] [place] Monocytes/100 WBC (Bld) 19.77 % Normal 0.00-20.00 [facility] Comment on above: Order Comment: RN Paulina conden is gonna try with ultrasound AB 1751 Result Comment: For adults in ED, MDW > 20.0 may be associated with a higher risk of sepsis during the first 12 hrs of hospital admission Performed By: #### S CAN CBC, CMP #### [facility] [address] [place] [address] [place] Monocytes/100 WBC (Bld) 4.1 % Normal . [facility] Comment on above: Order Comment: WILIAM Paulina conden is gonna try with ultrasound AB 1751 Performed By: #### S CAN CBC, CMP #### [facility] [address] [place] [address] [place] Neutrophils (Bld) [#/Vol] 4.6 10*3/uL Normal 1.8-7.7 [facility] Comment on above: Order Comment: RN Paulina conden is gonna try with ultrasound AB 1751 Performed By: #### S CAN CBC, CMP #### [facility] [address] [place] [address] [place] Neutrophils/100 WBC (Bld) 58.0 % Normal . [facility] Comment on above: Order Comment: RN Paulina conden is gonna try with ultrasound AB 1751 Performed By: #### S CAN CBC, CMP #### [address] NRBC% 0.5 /100{WBC} Normal 0-0.5 [facility] Comment on above: Order Comment: RN Paulina conden is gonna try with ultrasound AB 1751 Performed By: #### S CAN CBC, CMP #### [address] Platelet Estimate Normal Normal Normal [facility] Comment on above: Order Comment: RN Paulina nash is gonna try with ultrasound AB 1751 Performed By: #### S CAN CBC, CMP #### [address] Platelet mean volume (Bld) [Entitic vol] 9.3 fL Normal 6.6-10.1 [facility] Comment on above: Order Comment: RN Paulina nash is gonna try with ultrasound AB 1751 Performed By: #### S CAN CBC, CMP #### [facility] [address] [place] [address] Platelet Morphology Normal Normal Normal [facility] Comment on above: Order Comment: RN Paulina nash is gonna try with ultrasound AB 1751 Result Comment: PERF ORMED BY: [place] [address] PATHOLOGIST DINKEY SKINNER CHRISTOPHER CARTER M.D. Performed By: #### S CAN CBC, CMP #### [facility] [address] Platelets (Bld) [#/Vol] 310 10*3/uL Normal 150-450 [facility] Comment on above: Order Comment: WILIAM Gallardo saad is gonna try with ultrasound AB 1751 Performed By: #### S CAN CBC, CMP #### [facility] [address] RBC (Bld) [#/Vol] 5.49 10*6/uL Normal 3.90-5.60 [facility] Comment on above: Order Comment: WILIAM Gallardo saad is gonna try with ultrasound AB 1751 Performed By: #### S CAN CBC, CMP #### [facility] [address] Stomatocytes Slight Normal [facility] Comment on above: Order Comment: WILIAM Gallardo saad is gonna try with ultrasound AB 1751 Performed By: #### S CAN CBC, CMP #### [facility] [address] WBC (Bld) [#/Vol] 7.9 10*3/uL Normal 4.1-10.[address] [facility] Comment on above: Order Comment: WILIAM Gallardo saad is gonna try with ultrasound AB 1751 Performed By: #### S CAN CBC, CMP #### [facility] [address] Serum or plasma albumin/glob ulin mass ratioOrdered By: Mckenzie Cherry on 02-16-2023 Albumin/Globulin [Mass ratio] 1.2 {ratio} [facility] Serum or plasma anion gap de terminationOrdered By: Mckenzie Cherry on 02-16-2023 Anion gap [Moles/Vol] 12.4 mmol/L 6.0-15.0 [facility] Sodium [Moles/volume] in Ser um or PlasmaOrdered By: Mckenzie Cherry on 02-16-2023 Sodium [Moles/Vol] 136 mmol/L 136-[address] [facility] Specific gravity Auto test s trip (U) [Rel density]Ordered By: Mckenzie Cherry on 02-16-2023 Specific gravity (U) [Rel density] 1.017 1.001-1.030 [facility] Squamous epithelial cells de tection in urine sediment by light microscopyOrdered By: Mckenzie Cherry on 02-16-2023 Epithelial cells.squamous LM Ql (Urine sed) 0-1 [HPF] 0-2 [facility] Urea nitrogen [Mass/volume] in Serum or PlasmaOrdered By: Mckenzie Cherry on 02-16-2023 Urea nitrogen [Mass/Vol] 16 mg/dL 7-25 [facility] Urine bacteria detection by automated methodOrdered By: Mckenzie Cherry on 02-16-2023 Bacteria Auto Ql (U) None seen None Seen [facility] Urine clarity by refractomet ry automatedOrdered By: Mckenzie Cherry on 02-16-2023 Clarity Refractometry automated (U) Clear Clear [facility] Urine glucose measurement by automated test strip (mass/volume)Ordered By: Mckenzie Cherry on 02-16-2023 Glucose Auto test strip (U) [Mass/Vol] Normal mg/dL Normal [facility] Urine hemoglobin detection b y automated test stripOrdered By: Mckenzie Cherry on 02-16-2023 Hemoglobin Auto test strip Ql (U) Negative Negative [facility] Urine leukocyte esterase det ection by automated test stripOrdered By: Mckenzie Cherry on 02-16-2023 Leukocyte esterase Auto test strip Ql (U) 1+ Negative [facility] Urobilinogen Auto test strip (U) [Mass/Vol]Ordered By: Mckenzie Cherry on 02-16-2023 Urobilinogen (U) [Mass/Vol] Normal mg/dL Normal [facility] WBC Auto (Bld) [#/Vol]Ordere d By: Mckenzie Cherry on 02-16-2023 WBC (Bld) [#/Vol] 7.9 10*3/uL 4.1-10.[address] [facility] pH Auto test strip (U)Ordere d By: Mckenzie Cherry on 02-16-2023 pH (U) 7.5 [pH] 5.0-9.0 [facility] ECG 12 lead ECGon 05-11-2022 ECG 12 lead ECG [facility] [place] [address] Electrocardiograph Report Signed Patient: Bruce Beaver MR#: [id number] : 1980 Acct:[id number] Age/Sex: 42 / M ADM Date: 05/11/22 Loc: Room: Type: [facility] Attending Dr: Meera Sullivan MD Ordering Provider: Meera Sullivan MD Date of Service: 05/11/22 ECG/ECG 12 lead ECG: pt evalulation Copies to: Test Reason : Blood Pressure : / mmHG Vent. Rate : 091 BPM Atrial Rate : 091 BPM P-R Int : 124 ms QRS Dur : 094 ms QT Int : 366 ms P-R-T Axes : 057 086 024 degrees QTc Int : 450 ms Normal sinus rhythm Normal ECG No previous ECGs available Confirmed by SAGE CARRERA DO ([id number]) on 05/11/2022 1:23:43 PM Referred By: Star SULLVIAN Electronically Signed By:SAGE CARRERA DO Transcribed By: MUS Signed By Sage Carrera DO 05/11 1323 Normal [facility] CBC W/DIFFon 10-24-2020 ABS IMM GRANS 0.0 10*3/uL Normal 0.0-0.2 [facility] Comment on above: Performed By: #### 5 0103 #### [facility] [address] ABS NEUTROPHILS 2.7 10*3/uL Normal 1.6-7.6 [facility] Comment on above: Performed By: #### 5 0103 #### [facility] [address] [place] [address], [facility] Basophils (Bld) [#/Vol] 0.1 10*3/uL Normal 0.0-0.2 [facility] Comment on above: Performed By: #### 5 0103 #### [facility] [address] [place] [address], [facility] Basophils/100 WBC (Bld) 1.0 % Normal 0.0-1.0 Jake prado [facility] Comment on above: Performed By: #### 5 0103 #### [facility] [address] [place] [address], [facility] Eosinophils (Bld) [#/Vol] 0.2 10*3/uL Normal 0.0-0.5 [facility] Comment on above: Performed By: #### 5 0103 #### [facility] [address] [facility] [place] [address], [facility] Eosinophils/100 WBC (Bld) 3.1 % Normal 0.0-6.0 [facility] Comment on above: Performed By: #### 5 0103 #### [facility] [address] Erythrocyte distribution width (RBC) [Ratio] 12.7 % Normal 11.5-15.0 [facility] Comment on above: Performed By: #### 5 0103 #### [facility] [address] Hematocrit (Bld) [Volume fraction] 42.9 % Normal 39.0-50.0 [facility] Comment on above: Performed By: #### 5 0103 #### [facility] [address] [place] [address], [facility] Hemoglobin (Bld) [Mass/Vol] 14.0 g/dL Normal 13.0-17.0 [facility] Comment on above: Performed By: #### 5 0103 #### [facility] [address] [place] [address], [facility] IMMATURE GRANS 0.2 % Normal 0.0-1.0 [facility] Comment on above: Performed By: #### 5 0103 #### [facility] [address] [facility] [place] [address], [place] Lymphocytes (Bld) [#/Vol] 2.3 10*3/uL Normal 1.2-4.0 [facility] Comment on above: Performed By: #### 5 0103 #### [facility] [address] [facility] [place] [address], [facility] Lymphocytes/100 WBC (Bld) 40.2 % Normal 20.0-45.0 [facility] Comment on above: Performed By: #### 5 0103 #### [facility] [address] [facility] [place] [address], [facility] MCH (RBC) [Entitic mass] 28.1 pg Normal 27.0-33.0 [facility] Comment on above: Performed By: #### 5 3 #### [facility] [address] [facility]. [address] MCHC (RBC) [Mass/Vol] 32.6 g/dL Normal 32.0-35.0 [facility] Comment on above: Performed By: #### 5 0103 #### [facility] [address] [facility] [place] [address], [facility] MCV (RBC) [Entitic vol] 86.0 fL Normal 82.0-98.0 [facility] Comment on above: Performed By: #### 5 3 #### [facility] [address] [facility] [place] [address], [facility] Monocytes (Bld) [#/Vol] 0.5 10*3/uL Normal 0.1-1.0 [facility] Comment on above: Performed By: #### 5 3 #### [facility] [address] [facility] [place] [address], [facility] MONOS 7.9 % Normal 5.0-12.0 [facility] Comment on above: Performed By: #### 5 3 #### [facility] [address] [facility] [place] [address], [facility] Neutrophils/100 WBC (Bld) 47.6 % Normal 40.0-72.0 [facility] Comment on above: Performed By: #### 5 102 #### [facility] [address] [facility] [place] [address], [facility] Nucleated RBC/100 WBC (Bld) [Ratio] 0 % Normal 0-0 [facility] Comment on above: Performed By: #### 5 0103 #### [facility] [address] [facility] [place] [address], [facility] PLAT CNT 283 10*3/uL Normal 150-400 [facility] Comment on above: Performed By: #### 5 3 #### [facility] [address] [facility]. [address] RBC (Bld) [#/Vol] 4.99 10*6/uL Normal 4.20-5.70 [facility] Comment on above: Performed By: #### 5 0103 #### [facility] [address] [facility]. [address] WBC (Bld) [#/Vol] 5.72 10*3/uL Normal 4.00-10.60 [facility] Comment on above: Performed By: #### 5 102 #### [facility] [address] [facility]. [address] COMP METABOLIC PANELon 10-24 Albumin [Mass/Vol] 4.7 g/dL Normal 3.5-5.7 [facility] Comment on above: Performed By: #### 0 0121 ####[facility].[address] ALKALINE PHOSPH 68 IU/L Normal 34-104 [facility] Comment on above: Performed By: #### 0 0121 ####[facility]3000 [facility].[address] ALT [Catalytic activity/Vol] 27 U/L Normal 7-52 [facility] Comment on above: Performed By: #### 0 0121 ####[facility] AST [Catalytic activity/Vol] 35 U/L Normal 13-39 [facility] Comment on above: Performed By: #### 0 0121 ####[facility] [facility] [place] [address], [facility] Bilirubin [Mass/Vol] 0.3 mg/dL Normal 0.3-1.0 [facility] Comment on above: Performed By: #### 0 0121 ####[facility] [place] [address], [facility] Calcium [Mass/Vol] 9.9 mg/dL Normal 8.6-10.3 [facility] Comment on above: Performed By: #### 0 0121 ####[facility] [facility] [place] [address], [facility] Chloride [Moles/Vol] 101 mmol/L Normal 98-107 The [facility] Comment on above: Performed By: #### 0 0121 ####[facility] [facility] [place] [address], [facility] CO2 [Moles/Vol] 33 mmol/L High 21-31 The [facility] Comment on above: Performed By: #### 0 0121 ####[facility] [place] [address], [facility] Creatinine [Mass/Vol] 0.94 mg/dL Normal 0.70-1.30 [facility] Comment on above: Performed By: #### 0 0121 ####[facility] [facility] [place] [address], [facility] GFR/1.73 sq M.predicted among blacks MDRD (S/P/Bld) [Vol rate/Area] mL/min/{1.73_m2} Normal >60 The [facility] Comment on above: Performed By: #### 0 0121 ####[facility] [facility] [place] [address], [facility] GFR/1.73 sq M.predicted among non-blacks MDRD (S/P/Bld) [Vol rate/Area] mL/min/{1.73_m2} Normal >60 The [facility] Comment on above: Performed By: #### 0 0121 ####[facility] [facility] [place] [address], [facility] Glucose [Mass/Vol] 91 mg/dL Normal 70-100 The [facility] Comment on above: Performed By: #### 0 0121 ####[facility] [facility] [place] [address], [facility] Potassium [Moles/Vol] 4.5 mmol/L Normal 3.5-5.1 The [facility] Comment on above: Performed By: #### 0 0121 ####[facility] [facility] [place] [address], [facility] Protein [Mass/Vol] 7.6 g/dL Normal 6.0-8.3 The [facility] Comment on above: Performed By: #### 0 0121 ####[facility] [facility] [place] [address], [facility] Sodium [Moles/Vol] 138 mmol/L Normal 136-145 The [facility] Comment on above: Performed By: #### 0 0121 ####[facility] [facility] [place] [address], [facility] Urea nitrogen [Mass/Vol] 18 mg/dL Normal 7-20 The [facility] Comment on above: Performed By: #### 0 0121 ####[facility] [place] [address], [facility] HEP B CORE AB IGM [id number] HEP B CORE IGM Negative Normal Negative The [facility] Comment on above: Result Comment: INTE RPRETIVE INFORMATION: Hepatitis B Core Ab, IgM This assay should not be used for blood donor screening, associated re-entry protocols, or for screening Human Cells, Tissues and Cellular and Tissue-Based Products (HCT/P). Performed By: [facility] [address] [place] [id number] [employer] Instructor: Loraine Burger MD HEP B E AB 1 HEP B E AB Positive Abnormal Negative The [facility] Comment on above: Result Comment: The anti-HBe is repeatedly reactive, which is consistent with recent or remote Hepatitis B infection. Anti-HBe can be present in a small proportion of chronic HBV infections, but its presence usually indicates resolution. If HBeAg is also positive, this may represent the transition between the appearance of anti-HBe and decline of HBeAg, and retesting in one month may be useful. Performed By: [facility] [address] [place] [address] Business Communications Instructor: Loraine Burger MD HEP B E AG 1 HEP B E AG Negative Normal Negative The [facility] Comment on above: Result Comment: Perf ormed By: [facility] [address] [place] [address] Business Communications Instructor: Loraine Burger MD HEP B VIRUS, QUANT by NAAT 3 [id number] 10-24-2020 HBV QNT BY NAAT 436 IU/mL Normal The [facility] HBV QNT NAAT, INTERP Detected Abnormal Not Detected Th e [facility] Comment on above: Result Comment: INTE RPRETIVE INFORMATION: HBV by Quantitative NAAT Normal range for this assay is Not Detected . The quantitative range of this assay is 1.00-9.00 log IU/mL (10-1,000,000,000 IU/mL). An interpretation of Not Detected does not rule out the presence of inhibitors in the patient specimen or HBV DNA concentration below the level of detection of the test. Care should be taken when interpreting any single viral load determination. This assay should not be used for blood donor screening, associated re-entry protocols, or for screening Human Cell, Tissues and Cellular Tissue-Based Products (HCT/P). HBV QNT NAAT, LOG 3 log IU/mL Normal The [facility] Comment on above: Result Comment: Perf ormed By: [facility] [address] [place] [address] Business Communications Instructor: Loraine Burger MD HEP C GENOTYPE w/RFLX NS5A D RUG RESIS [id number] 10-24-2020 HEP C GENOTYPING Indeterminate Normal The [facility] Comment on above: Result Comment: Hepa titis C GENOTYPING IS INDETERMINATE. This test may be unsuccessful if the HCV RNA viral load is less than log 3.6 or 4000 IU per mL. Repeat testing may be appropriate if and when the viral load becomes greater than log 3.6 or 4000 IU/mL. In addition to low viral load, other conditions, such as PCR inhibitors, viral genetic variation, etc., may cause RT-PCR failure resulting in an indeterminate result. HCV Genotype result was not 1a or 1b ; therefore no further testing was added. INTERPRETIVE INFORMATION: Hepatitis C Genotyping Hepatitis C Viral RNA is tested using reverse order packer polymerase chain reaction (RT-PCR) to amplify a specific portion of the 5' untranslated region (5' UTR) of the viral genome. The amplified nucleic acid is sequenced bi-directionally using dye-terminator chemistry (ExpoPromoter). Sequencing data is compared to a database of characterized sequences. Isolates of hepatitis C virus are grouped into six major genotypes (1-6). These genotypes are subtyped according to sequence characteristics. Due to high conservation of the 5' un-translated region of the HCV genome, this test has limitations in differentiating subtype 1a from 1b. Therefore, these subtypes will be reported as 1a or 1b. In rare instances, Type 6 virus may be misclassified as Type 1. This test was developed and its performance characteristics determined by [facility]. It has not been cleared or approved by the [place] Food and Drug Administration. This test was performed in a CLIA certified laboratory and is intended for clinical purposes. Performed By: [facility] [address] [place] [address] Business Communications Instructor: Loraine Burger MD HEPATITIS A ABS TOTAL [id number] 10-24-2020 HEP A ABS(TOTAL) Negative Normal Negative The [facility] Comment on above: Result Comment: Perf ormed By: [facility] [address] [place] [address] Business Communications Instructor: Loraine Burger MD HEPATITIS B CORE ANTIBODYon 10-24-2020 HEP B CORE AB Reactive Abnormal NONREACTIVE The [facility] Comment on above: Performed By: #### 3 1423, [id number], [id number], [address] ####[facility] HEPATITIS B SURFACE ANTIBODY QUANTon 10-24-2020 HEP B SURF AB 0.00 mIU/ml Normal The [facility] Comment on above: Result Comment: INTE RPRETATION: NONREACTIVE<8.00 mIU/mL INDETERMINATE8.00 - 12.00 mIU/mL REACTIVE>12 mIU/mL Performed By: #### 3 1423, 71782, 64933, 71631 #### [facility] [address] HEPATITIS B SURFACE ANTIGEN QUALon 10-24-2020 HEP B SURF AG QUAL Reactive Abnormal NONREACTIVE The [facility] Comment on above: Result Comment: HEPA TITIS B SURFACE ANTIGEN TO BE CONFIRMED Performed By: #### 3 1423, [id number], 96212, 12152 #### [facility] [address] [facility] HEPATITIS C BY TMAon HCV Not detected Normal The [facility] Comment on above: Order Comment: The A ptima HCV Quant Dx assay is a real-time order packer-mediated amplification (TMA) test which has a dynamic range of 10-100,000,000 IU/mL (1.0-8.0 log IU/mL). The Aptima HCV Quant Dx assay is used for both detection and quantitation of hepatitis C virus (HCV) RNA in human serum and plasma from HCV-infected individuals. The results from the Aptima HCV Quant Dx assay must be interpreted within the context of all relevant clinical and laboratory findings. The Aptima HCV Quant Dx assay is not approved for use as a screening test for the presence of HCV RNA in blood or blood products. Performed By: #### 3 6760 #### [facility] [address] HCV TMA INTERPRETATION Not detected Normal The [facility] Comment on above: Order Comment: The A ptima HCV Quant Dx assay is a real-time order packer-mediated amplification (TMA) test which has a dynamic range of 10-100,000,000 IU/mL (1.0-8.0 log IU/mL). The Aptima HCV Quant Dx assay is used for both detection and quantitation of hepatitis C virus (HCV) RNA in human serum and plasma from HCV-infected individuals. The results from the Aptima HCV Quant Dx assay must be interpreted within the context of all relevant clinical and laboratory findings. The Aptima HCV Quant Dx assay is not approved for use as a screening test for the presence of HCV RNA in blood or blood products. Performed By: #### 3 1750 #### [facility] [address] HIV1 AND 2 COMBO 4Gon 2020 HIV COMBO Negative Normal NEGATIVE [facility] Comment on above: Performed By: #### 3 0625 #### [facility] [address] LIVER FIBROSIS CHRONIC VIRAL [id number] 10-24-2020 [id number],FI BROMETER 176 mg/dL Normal 131-293 The [facility] ALT [Catalytic activity/Vol] 31 U/L Normal 5-50 The [facility] Amylase [Catalytic activity/Vol] 12 U/L Normal 7-51 The [facility] AST [Catalytic activity/Vol] 42 U/L Normal 9-50 The [facility] CIRRHOMETER PATIENT SCORE 0.01 Normal The [facility] EER FIBROMETER REPORT See Note Normal The [facility] Comment on above: Result Comment: Manda coronel [facility] Enhanced Report using the link below: -Direct access: [email or web address] FIBROMETER INTERPRETATION See Report Normal The [facility] Comment on above: Result Comment: [16] [17] INTERPRETIVE INFORMATION: Fibrometer Interpretation Calculations for the final report are based on accurate data for age, gender, and platelet count. If any of this information needs to be corrected, please contact [facility] Client Services to request a recalculation. Client Services may be contacted at . The [employer] FibroMeter profile serves as a surrogate marker of liver fibrosis, cirrhosis, and necro-inflammatory activity. A proprietary algorithm calculates and compares results from 7 blood markers along with age and gender to provide a patient score (from 0 to 1) and a correlated fibrosis stage (Metavir F0-F4) and activity grade (Metavir A0-A3). The fibrosis/cirrhosis score is further evaluated by a rules-based system to detect anomalous profile results which may modify the fibrosis/cirrhosis score as needed. Results should be interpreted in conjunction with the patient's clinical history; particularly when the rules-based system has modified the scores. Legend: -Metavir is a histological scoring system for determining the extent of liver fibrosis and inflammation. STAGE OF FIBROSIS (F scale) F0 = no fibrosis F1 = portal fibrosis without septa F2 = portal fibrosis with few septa F3 = numerous septa without cirrhosis F4 = cirrhosis GRADE OF NECRO-INFLAMMATORY ACTIVITY (A scale) A0 = no activity A1 = mild activity A2 = moderate activity A3 = severe activity -Platelet count result provided by client. -The Prothrombin Index test expresses the Prothrombin Time (PT) as a percentage of normal, and is used to standardize PT results across different instrument/reagent combinations. This test was developed and its performance characteristics determined by [facility]. It has not been cleared or approved by the [place] Food and Drug Administration. This test was performed in a CLIA certified laboratory and is intended for clinical purposes. Performed By: [facility] [address] [place] [id number] [employer] Instructor: Loraine Burger MD FIBROMETER PLATELET CT 283 k/uL Normal Th e [facility] FIBROMETER PLATELET IND 87 % Low 90-120 T he [facility] FIBROMETER PLATELET SCORE 0.26 Normal The [facility] FIBROSIS METAVIR CLASSIFICATION F1[F1-F2] Normal The [facility] Comment on above: Result Comment: INTE RPRETIVE INFORMATION: Fibrosis Metavir Classification FibroMeter (fibrosis score) comments F0/F1 Equal probability between F0 and F1 F1[F1-F2] Predominance of F1, but F2 is possible F2[F1-F2] Predominance of F2, but F1 is possible F2[F1-F3] Predominance of F2, but F1 and F3 are possible F2/F3 Equal probability between F2 and F3 F3[F2-F4] Predominance of F3, but F2 and F4 are possible F3[F3-F4] Predominance of F3, but F4 is possible F4[F3-F4] Predominance of F4, but F3 is possible INFLAMETER METAVIR CLASSIFICATION A0/A1 Normal [facility] Comment on above: Result Comment: INTE RPRETIVE INFORMATION: InflaMeter Metavir Classification InflaMeter (activity score) comments A0/A1 Equal probability between A0 and A1 A1/A2 Equal probability between A1 and A2 A2/A3 Equal probability between A2 and A3 INFLAMETER PATIENT SCORE 0.25 Normal [facility] PROTHROMBIN TIMEon 1 INR Coag (PPP) [Relative time] 1.02 {INR} Normal 0.91-1.16 [facility] Comment on above: Order Comment: Jessica julio drawn PT/INR Result Comment: ACCC P RECOMMENDED INR FOR WARFARIN THERAPY ------- CONDITION INR PROPHYLAXIS OF VENOUS THROMBOSIS 2-3 (HIGH-RISK SURGERY) TREATMENT OF VENOUS THROMBOSIS 2-3 TREATMENT OF PULMONARY EMBOLISM 2-3 PREVENTION OF SYSTEMIC EMBOLISM: 2-3 ACUTE MYOCARDIAL INFARCTION TISSUE HEART VALVES VALVULAR HEART DISEASE ATRIAL FIBRILLATION RECURRENT SYSTEMIC EMBOLISM MECHANICAL HEART VALVE 2.5-3.5 FROM: ORAL ANTICOAGULANTS. MECHANISM OF ACTION, CLINICAL EFFECTIVENESS, AND OPTIMAL THERAPEUTIC RANGE. CHEST 1995;108:231S-246S. Performed By: #### [id number] ####[facility] PT Coag (PPP) [Time] 13.4 s Normal 12.3-14.8 [facility] Comment on above: Order Comment: Jessica julio drawn PT/INR Result Comment: ALL RESULTS MUST BE INTERPRETED WITH RESPECT TO BLOOD DRAWING ARTIFACT OR DILUTION ERROR OF ANTICOAGULANT AT THE TIME OF SAMPLING. Performed By: #### [id number] ####[facility], [place] [id number] [place] [address] hep b surf ag confirmon 08-2 HEP B SURF AG QUAL INTERP CONFIRMED Normal [facility] Comment on above: Performed By: #### 3 [id number], [id number], [id number], [id number] ####[facility] [place] [address], [facility] Vital Signs Date Time Vital Sign Value Performing Clinician Faci lity 02-16-2023 20:05-0500 Body temperature 98.8 [degF] PHYSICIAN NO [facility] 02-16-2023 20:05-0500 Diastolic blood pressure 95 mm[Hg] PHYSICIAN NO [facility] 02-16-2023 20:05-0500 Heart rate 94 /min PHYSICIAN NO [facility] 02-16-2023 20:05-0500 Respiratory rate 20 /min PHYSICIAN NO [facility] 02-16-2023 20:05-0500 SaO2% (BldA) [Mass fraction] 96 % PHYSICIAN NO [facility] 02-16-2023 20:05-0500 Systolic blood pressure 156 mm[Hg] PHYSICIAN NO [facility] 02-16-2023 14:24-0500 Body height 172.72 cm PHYSICIAN NO [facility] 02-16-2023 14:24-0500 Body weight 67.05 kg PHYSICIAN NO [facility] Encounters Encounter Date Encounter Type Care Provider Facility Start: 02-16-2023 End: 02-16-2023 Emergency department patient visit Joshua Burger Facility:[facility] Start: 02-16-2023 End: 02-16-2023 Emergency department patient visit PHYSICIAN NO [facility] Work Phone: Start: 05-11-2022 End: 05-11-2022 ambulatory PHYSICIAN NO [facility] Facility:[facility] Start: 05-11-2022 End: 05-11-2022 ambulatory PHYSICIAN NO [facility] Work Phone: Start: 05-11-2022 End: 05-11-2022 Patient encounter procedure PHYSICIAN NO [facility] Work Phone: Start: 02-15-2022 End: 02-15-[address] CHINEDU CESAR Facility: Start: 09-15-2021 End: 09-23-2021 ambulatory UNKNOWN PROVIDER Facility[facility] Plan of Treatment Date Care Activity Detail Author Start: 02-16-2023 [facility] Hepatitis A virus an tibody, IgM type [facility] Hepatitis B core ant ibody measurement, IgM type [facility] Hepatitis B virus rice rface Ag [Presence] in Serum or Plasma by Immunoassay [facility] Hepatitis C virus Ig G Ab [Presence] in Serum or Plasma by Immunoassay [facility] Hepatitis C virus RN A [log units/volume] (viral load) in Serum or Plasma by [place] with probe detection [facility] Hepatitis C virus RN A [Units/volume] (viral load) in Serum or Plasma by [place]AT with probe detection [facility] Patient Education Hepatitis Panel [facility] Work Phone: Patient referral [facility] Work Phone: Payers Date Payer Category Payer Medicaid [id number] 2022 Self-pay 2021 Unknown [id number] 1980 Unknown [id number] 1980 Unknown [id number] 1959 Medicaid [id number] Private Health Insurance [facility] [place] [id number] Unknown [id number] Unknown [id number] Social History Date Type Detail [facility] Work Phone: Start: 1980 Sex Assigned At Male F [facility] Start: 02-16-2023 [facility] Evaluation note Note Date & Type Note Facility Evaluation note No assessment information availa ble [facility] Work Phone: Hospital Discharge instructions Note Date & Type Note Facility Hospital Discharge instructions Additional Instructions Follow-up with Dr. Jerome You may return to detox [facility] Work Phone: Summary Purpose Family History No Family History Records FoundNo Family History Records FoundNo Family History Records FoundNo Family History Records Found Advance Directives No Advanced Directives Records Found Advance Directive Response Recorded Date/ Time Advance Directives No May 11, 023 8:26am Advance Directive Response Recorded Date/ Time Advance Directives No May 11 023 7:26am Chief Complaint and Reason for Visit Chief Complaint long QT syndrome Chief Complaint headache , fever sen t by dr Additional Source Comments (unrecognized sect ion and content) No Status Records FoundNo Status Records FoundNo Status Records FoundNo Status Records Found INFORMATION SOURCE (unrecogn ized section and content) DATE CREATED AUTHOR 11/01/2020 [facility] DATE CREATED AUTHOR AUTHOR'S ORGANIZ ATION 09/25/2021 [facility] DATE CREATED AUTHOR AUTHOR'S ORGANIZ ATION 02/20/2022 [facility] DATE CREATED AUTHOR AUTHOR'S ORGANIZ ATION 02/17/2023 [facility] Care Teams (unrecognized sec tion and content) Team Status: Active Member Role Status Dates PHYSICIAN NO FAMILY Primary Care Provider Active Team Status: Inactive Member Role Status Dates PHYSICIAN NO FAMILY Primary Care Provider Active Meera Sullivan MD Attending Provider Active Team Status: Inactive Member Role Status Dates PHYSICIAN NO FAMILY Primary Care Provider Active Joshua Burger MD Emergency Provider Active Goals (unrecognized section and content) Goals may be documented in a n alternate sectionGoals may be documented in an alternate section FOR RECORDS PERTAINING TO PATIENTS WHO ARE OR HAVE BEEN ENROLLED IN A CHEMICAL DEPENDENCY/SUBSTANCEABUSE PROGRAM, SOME INFORMATION MAY BE OMITTED. This clinical summary was aggregated from multiple sources. Caution should be exercised in using it in the provision of clinical care. This summary normalizes information from multiple sources, and as a consequence, information in this document may materially change the coding, format and clinical context of patient data. In addition, data may be omitted in some cases. CLINICAL DECISIONS SHOULD BE BASED ON THE PRIMARY CLINICAL RECORDS. [facility]. provides no warranty or guarantee of the accuracy or completeness of information in this document.
[2023-02-25 10:05] LABS: Ammonia 33 umol/L (11-32)
[2023-02-25 10:43] LABS: Alanine Aminotransferase 134 U/L (16-63); Albumin Globulin Ratio 0.9; Albumin Level 4.1 g/dL (3.4-5.0); Alkaline Phosphatase 114 U/L (46-116); Aspartate Amino Transferase 59 U/L (15-37); Bilirubin Direct 0.3 mg/dL (0.0-0.2); Bilirubin Total 0.7 mg/dL (0.2-1.0); Globulin 4.5 g/dL; Total Protein 8.6 g/dL (6.4-8.2)
== END 2023-02-25 09:34 | disposition home or self-care (01) ==
LOC: LAB 09:33
PROVIDERS: Visit Provider Nurse Practitioner Primary Care
DX: B18.2 Chronic viral hepatitis C (principal)
CPT/HCPCS: 36415; 80076; 82140

== ENCOUNTER 2023-10-08 11:39 | Emergency (ER) | payer OTHER, SELFPAY ==
[2023-10-08] VITALS (19 sets, daily range): BP systolic 112–138; BP diastolic 70–90; PULSE 60–85; TEMP 36.8–37.2; O2SAT 92–96; BMI 23.6
--- OUTSIDE RECORDS SUMMARY | 2023-10-08 11:47 | XMS_ITS | CCD ---
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, [facility] Primary Care Provider Unav ailable NO FAMILY, PHYSICIAN Primary Care Unavailable Asaad, Imad Admitting Unavailable Asaad, Imad Attending Unavailable NO FAMILY, PHYSICIAN Primary Care Unavailable Meera Sullivan Admitting Unavailable Meera Sullivan Attending Unavailable NO FAMILY, PHYSICIAN Primary Care Unavailable Joshua Burger Admitting Unavailable Joshua Burger Attending Unavailable KATIE LOZA Attending Unavailable [facility] Primary Care Unavailable [facility], [facility] Primary Care Unavailable [facility] Primary Care Unavailable [facility] Primary Care Unavailable HANY FUENTES Attending Unavailable Medications Current Medications Medication Drug Class(es) Dates Sig (Normalized) Sig (Original) benzonatate 100 mg oral capsule (2 sources) Non-narcotic Antitussive Start: 4 End: 4 take 1 capsule by mouth every eight hours benzonatate (Tessalon) 100 MG capsule Take 1 capsule (100 mg) by mouth in the morning and 1 capsule (100 mg) at noon and 1 capsule (100 mg) before bedtime. Do all this for 7 days. Do not crush or chew.. 21 capsule 0 04/02/2023 04/09/2023 Active cyclobenzaprine hydrochloride 10 mg oral tablet (2 sources) Muscle Relaxant Start: 4 End: 4 take 1 tablet by mouth twice daily as needed for muscle spasms cyclobenzaprine (Flexeril) 10 MG tablet Take 1 tablet (10 mg) by mouth 2 times daily as needed for muscle spasms for up to 10 days. 20 tablet 0 07/28/2023 08/07/2023 Active docusate sodium 100 mg oral capsule (1 source) take 1 capsule by mouth every twenty-four hours Colace 100 MG 1 capsule as needed Orally Once a day Active methylPREDNISolone 4 mg oral tablet (2 sources) Corticosteroid Start: 4 End: 4 methylPREDNISolone (Medrol Dospak) 4 MG tablets Follow schedule on package instructions 21 tablet 0 04/02/2023 04/09/2023 Active Multivitamin preparation (1 source) take 1 tablet by mouth once daily Multi Vitamin - 1 tablet Orally Once a day Active predniSONE 20 mg oral tablet (2 sources) Start: End: 4 take 2 tablets by mouth once daily predniSONE (Deltasone) 20 MG tablet Take 2 tablets (40 mg) by mouth daily for 4 days. 8 tablet 0 07/28/2023 08/01/2023 Active sertraline 100 mg oral tablet (8 sources) Serotonin Reuptake Inhibitor sertraline (Zoloft) 100 MG tablet Take by mouth. 0 Active Zoloft Active traZODone hydrochloride 50 mg oral tablet (1 source) Serotonin Reuptake Inhibitor Start: 02-16-2023 take 50 mg by mouth once daily at bedtime Trazodone Active 50 MG PO Daily at bedtime February 16, 2023 12:00am Completed/Discontinued Medications Medication Drug Class(es) Dates Sig (Normalized) Sig (Original) buprenorphine 8 mg / naloxone 2 mg sublingual film (10 sources) Partial Opioid Agonist, Opioid Antagonist Start: 03-06-2023 End: 03-06-2023 buprenorphine-nal oxone (Suboxone) 8-2 MG per sublingual film 1 Film Start: 02-16-2023 Buprenorphine- Naloxone Active 1 FILM SUBLINGUAL Daily February 16, 2023 12:00am buprenorphine-na loxone (Suboxone) 8-2 MG SL tablet Indications: Opioid Dependence Place 1 tablet under the tongue Once. 0 Active Suboxone Active Problems Active Problems Problem Classification Problem Date Documented Da te Episodic/Chronic Abdominal pain (1 source) Unspecified abdominal pain; Translations: [Unspecified abdominal pain] Onset: 02-16-2023 Episodic Conduction disorders (1 source) Long QT syndrome; Translations: [Long QT syndrome] Onset: 05-11-2022 Chronic Other aftercare (2 sources) Drug therapy finding; Translations: [Encounter for therapeutic drug level monitoring] 03-06-2023 Episodic Other infections; including parasitic (1 source) H/O: liver disease; Translations: [Personal history of other infectious and parasitic diseases] 03-06-2023 Episodic Other liver diseases (2 sources) Enzyme level - finding; Translations: [Elevated transaminase measurement] 02-16-2023 Episodic Other liver diseases (1 source) Elevated liver enzymes level; Translations: [Abnormal levels of other serum enzymes] Episodic Other liver diseases (1 source) Abnormal levels of other serum enzymes Episodic Other nervous system disorders (1 source) Lesion of ulnar nerve, left upper limb; Translations: [LESION ULNAR NERVE LEFT UPPER LIMB] Onset: 02-16-2022 Chronic Other nervous system disorders (4 sources) Paresthesia of skin; Translations: [PARESTHESIA OF SKIN] Onset: 02-15-2022 Episodic Other screening for suspected conditions (not mental disorders or infectious disease) (1 source) Abnormal results of liver function studies; Translations: [Abnormal results of liver function studies] Onset: 03-02-2023 Episodic Sprains and strains (4 sources) Low back strain; Translations: [Strain of muscle, fascia and tendon of lower back, initial encounter] Onset: 07-28-2023 07-28-2023 Episodic Substance-related disorders (3 sources) Nicotine dependence, cigarettes, uncomplicated; Translations: [Opioid abuse, uncomplicated] Onset: 02-16-2022 03-06-2023 Chronic Unclassified (2 sources) Drug / Alcohol Assessment; Translations: [Drug / Alcohol Assessment] Onset: 03-06-2023 Past or Other Problems Problem Classification Problem Date Documented Da te Episodic/Chronic Other aftercare (2 sources) Encounter for therapeutic drug level monitoring; Translations: [Encounter for therapeutic drug level monitoring] Onset: 03-06-2023 Episodic Other aftercare (2 sources) 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; Translations: [Other snf (current) drug therapy] Onset: 03-06-2023 Episodic Viral infection (4 sources) Respiratory syncytial virus infection; Translations: [Other specified viral diseases] Onset: 04-02-2023 04-02-2023 Episodic Results Test Name Value Interpretation Reference Range Facility ED Provider Noteon ED Provider Note EMERGENCY DEPARTMENT ENCOUNTER Pt Name: Ness Beaver Birthdate 1980 Date of evaluation: 07/28/2023 ED Provider: Hany Fuentes MD CHIEF COMPLAINT Chief Complaint Patient presents with Back Pain Back pain worsening over the last 3 days HISTORY OF PRESENT ILLNESS (Location/Symptom, Timing/Onset, Context/Setting, Quality, Duration, Modifying Factors, Severity) Note limiting factors. I wore appropriate PPE for the entirety of this encounter. HPI Ness Baever is a 43 y.o. who presents to the emergency department with right-sided lumbar back pain worse over the last 3 days, this is a chronic issue for him, he denies any fevers chills or bodyaches, no radiation of pain. Worse with movement. No trauma. Patient denies any loss of bladder or bowel control, saddle anesthesia, radicular symptoms, or fevers. Patient denies any pain in the midline and says that the pain is exacerbated by movement and is located in the paraspinal musculature. Nursing Notes were reviewed. Limitations to history: None Outside historians: None REVIEW OF SYSTEMS Review of Systems Pertinent positives and negatives as per HPI PAST MEDICAL HISTORY Past Medical History: Diagnosis Date Depression PTSD (post-traumatic stress disorder) SURGICAL HISTORY Past Surgical History: Procedure Laterality Date TONSILLECTOMY CURRENT MEDICATIONS Previous Medications BUPRENORPHINE-NALOXO NE (SUBOXONE) 8-[address] 1 tablet under the tongue Once. SERTRALINE (ZOLOFT) 100 MG TABLET Take by mouth. ALLERGIES Patient has no known allergies. FAMILY HISTORY No family history on file. SOCIAL HISTORY Social History Socioeconomic History Marital status: Single Tobacco Use Smoking status: Never Substance and Sexual Activity Alcohol use: No Drug use: No Comment: methadone PHYSICAL EXAM ED Triage Vitals Temp Heart Rate Resp BP 07/28/23 0701 07/28/23 0701 07/28/23 0701 07/28/23 0701 36.6 ?C (97.9 ?F) 75 18 130/79 SpO2 Temp Source Heart Rate Source Patient Position 07/28/23 0701 07/28/23 0659 07/28/23 07 -- 96 % Temporal Monitor BP Location FiO2 (%) -- -- Physical Exam GENERAL: The patient appears nourished and normally developed. Vital signs as documented. EYES: Head exam is unremarkable. No scleral icterus or orbital trauma noted. HEENT: Mucous membranes moist. Nares patent without copious rhinorrhea. No enlarged lymphadenopathy. LUNGS: Lungs are clear to auscultation, without any respiratory distress. CARDIAC: Rhythm is regular. No dysrythmias or murmurs. ABDOMEN: Nontender with no obvious masses, and no peritoneal signs. EXTREMITIES: Nonedematous, with no obvious deformities. SKIN: Good color, with no significant rashes. No pallor. NEURO: No obvious neurological deficits. Patient moves without difficulty. MUSCULO-SKELETAL: Patient has some generalized lower back tenderness to palpation. No localized, midline bony tenderness and no evidence of fracture. Lower extremity motor function is normal. Lower extremity sensation is intact. DTRs are equal and normal bilaterally. Pain is most likely due to soft-tissue pain (muscular and/or ligamentous). DIAGNOSTIC RESULTS RADIOLOGY (Per Emergency Physician): Interpretation per the Radiologist below, if available at the time of this note: No orders to display LABS: Labs Reviewed - No data to display All other labs were within normal range or not returned as of this dictation. EMERGENCY DEPARTMENT COURSE and DIFFERENTIAL DIAGNOSIS/MDM: Vitals: Vitals: 07/28/23 0659 07/28/23 07 BP: 130/79 Pulse: 75 Resp: 18 Temp: 36.6 ?C (97.9 ?F) TempSrc: Temporal Temporal SpO2: 96% Medications - No data to display SCREENINGS MDM elements: The patient presented with chief complaint of with acute on chronic low back pain without any known trauma. Based on history and physical exam I do not feel that the patient is at high risk for cauda equina syndrome, conus medullaris syndrome, epidural abscess, discitis or vertebral osteomyelitis. The patient was instructed that if they have any worsening symptoms, any numbness or tingling in the genital area, any weakness, or any loss of bladder or bowel control or difficulty urinating the patient return immediately for reevaluation. They voiced understanding.. The differential diagnosis associated with this patient's presentation includes back spasm, back strain, less likely epidural abscess cauda equina syndrome conus medullaris syndrome discitis or vertebral osteomyelitis. Our workup consisted of ordering/reviewing: No need for imaging or labs at this time, there is no spinal tenderness on exam and no red flag symptoms, treated with Flexeril and prednisone. Patient has history of opiate dependence has been sober for 6 months. The patient will be Discharged. Patient is in agreement with this plan. PROCEDURES: Unless otherwise noted below, non (more content not included)... Normal [facility] COMPLETE URINALYSISon 2023 BACTERIA (#/HPF) IN URINE Few Abnormal Negative [facility] Comment on above: Performed By: #### L [id number] ####Gallery Or Museum Technician: CRISTIANA BROWN ([id number])[facility])[address] [place] [address] BILIRUBIN, TOTAL PRESENCE IN URINE Negative Normal Negative [facility] Comment on above: Performed By: #### L [id number] ####Gallery Or Museum Technician: CRISTIANA BROWN ([phone])[facility])[address] [place] [address] Clarity (U) Clear Normal Clear [facility] Comment on above: Performed By: #### L [id number] ####Gallery Or Museum Technician: CRISTIANA BROWN ([id number])[facility])[address] [place] [address] Color (U) Yellow Normal Lt. Yellow [facility] Comment on above: Performed By: #### L [id number] ####Gallery Or Museum Technician: CRISTIANA BROWN ([id number])[facility])[address] [place] [address] [place] GLUCOSE (MG/DL) IN URINE Normal Normal Normal (<70) [facility] Comment on above: Performed By: #### L [id number] ####Gallery Or Museum Technician: CRISTIANA BROWN ([id number])[facility] ([facility])[address] [place] [address] HEMOGLOBIN PRESENCE IN URINE Negative Normal Negative [facility] Comment on above: Performed By: #### L [id number] ####Gallery Or Museum Technician: CRISTIANA BROWN ([id number])[facility] ([facility])[address] [place] [address] HYALINE CASTS (#/LPF) IN URINE SEDIMENT BY MICROSCOPY Negative Normal Negative [facility] Comment on above: Performed By: #### L [id number] ####Gallery Or Museum Technician: CRISTIANA BROWN ([id number])[facility] ([facility])[address] [place] [address] Ketones Ql (U) Negative Normal Negative [facility] Comment on above: Performed By: #### L [id number] ####Gallery Or Museum Technician: CRISTIANA BROWN ([id number])[facility] ([facility])[address] [place] [address] LEUKOCYTE ESTERASE PRESENCE IN URINE BY TEST STRIP 25 Irina/uL Abnormal Negative [facility] Comment on above: Performed By: #### L [id number] ####Gallery Or Museum Technician: CRISTIANA BROWN ([id number])[facility] ([facility])[address] [place] [address] MUCUS (#/LPF) IN URINE SEDIMENT Many Abnormal Negative [facility] Comment on above: Performed By: #### L [id number] ####Gallery Or Museum Technician: CRISTIANA BROWN ([phone])[facility] ([facility])[address] [place] [address] NITRITE PRESENCE IN URINE Negative Normal Negative [facility] Comment on above: Performed By: #### L [id number] ####Gallery Or Museum Technician: CRISTIANA BROWN ([id number])[facility] ([facility])[address] [place] [address] pH (U) 6.0 [pH] Normal 5.0-8.[address] [facility] Comment on above: Performed By: #### L [id number] ####Gallery Or Museum Technician: CRISTIANA BROWN ([id number])[facility] ([facility])[address] [place] [address] Protein (U) [Mass/Vol] 10 mg/dL Abnormal Negative [facility] Comment on above: Performed By: #### L [id number] ####Gallery Or Museum Technician: CRISTIANA BROWN ([id number])[facility] ([facility])[address] [place] [address] RBC (#/HPF) IN URINE SEDIMENT 3-5 Abnormal 0-[address] [facility] Comment on above: Performed By: #### L [id number] ####Gallery Or Museum Technician: CRISTIANA BROWN ([id number])[facility] ([facility])[address] [place] [address] Specific gravity (U) [Rel density] 1.033 High 1.005-1.[address] [facility] Comment on above: Performed By: #### L [id number] ####Gallery Or Museum Technician: CRISTIANA BROWN ([id number])[facility] ([facility])[address] [place] [address] SQUAMOUS EPITHELIAL CELLS (#/HPF) IN URINE SEDIMENT 0-2 Normal 3-[address] [facility] Comment on above: Performed By: #### L [id number] ####Gallery Or Museum Technician: CRISTIANA BROWN ([id number])[facility] ([facility])[address] [place] [address] UROBILINOGEN (MG/DL) IN URINE 3 mg/dL Abnormal Normal (0-1) [facility] Comment on above: Performed By: #### L [id number] ####Gallery Or Museum Technician: CRISTIANA BROWN ([id number])[facility] ([facility])[address] [place] [address] WBC (LEUKOCYTE) (#/HPF) IN URINE SEDIMENT 3-5 Normal 0-[address] [facility] Comment on above: Performed By: #### L [id number] ####Gallery Or Museum Technician: CRISTIANA BROWN ([id number])[facility] ([facility])[address] [place] [address] ED Provider Noteon 4 ED Provider Note EMERGENCY DEPARTMENT ENCOUNTER Pt Name: Ness Beaver Birthdate 1980 Date of evaluation: 04/02/2023 ED Provider: Maribeth Veliz APRN Patient seen independently within my scope of practice with an Emergency Medicine attending available for supervision. CHIEF COMPLAINT Chief Complaint Patient presents with Cough Pt reports cold and flu symptoms, congestion is the worst, and coughs up dark yellow/brown mucus. Denies SOB & chest pain. Pt is taking guaifenesin with little relief. Flank Pain Pt reports bilateral flank pain that started yesterday, 8/10 sharp pain. Pt has dark urine, but denies pain with urination. Hx of Hep C. HISTORY OF PRESENT ILLNESS (Location/Symptom, Timing/Onset, Context/Setting, Quality, Duration, Modifying Factors, Severity) Note limiting factors. I wore appropriate PPE for the entirety of this encounter. HPI Ness Beaver is a 43 y.o. who presents to the emergency department complaining of productive cough and congestion for the past 5 days. Patient reports that one of his friends has been sick for the last couple of weeks, has not been tested for viral illnesses. Patient reports he has been taking guaifenesin without significant relief. Patient also states that his urine has been dark and he starting to notice some bilateral flank pain earlier today, describes this as a dull ache. Patient denies headache, fever, chills, lightheadedness, dizziness, visual disturbances, sore throat, chest pain, shortness of breath, abdominal pain, nausea, vomiting, diarrhea, constipation, hematemesis, hematochezia. Denies dysuria or gross hematuria. Patient's past medical history includes paresthesias, elevated transaminases, long QT syndrome, and depression. Nursing Notes were reviewed. Limitations to history: None Outside historians: None REVIEW OF SYSTEMS Review of Systems Pertinent positives and negatives as per HPI. 11 systems reviewed PAST MEDICAL HISTORY Past Medical History: Diagnosis Date Depression PTSD (post-traumatic stress disorder) SURGICAL HISTORY Past Surgical History: Procedure Laterality Date TONSILLECTOMY CURRENT MEDICATIONS Discharge Medication List as of 04/02/2023 11:27 AM CONTINUE these medications which have NOT CHANGED Details buprenorphine-naloxo ne (Suboxone) 8-[address] 1 tablet under the tongue Once., Historical Med sertraline (Zoloft) 100 MG tablet Take by mouth., Historical Med ALLERGIES Patient has no known allergies. FAMILY HISTORY No family history on file. SOCIAL HISTORY Social History Socioeconomic History Marital status: Single Tobacco Use Smoking status: Never Substance and Sexual Activity Alcohol use: No Drug use: No Comment: methadone SCREENINGS PHYSICAL EXAM ED Triage Vitals Temp Pulse Resp BP -- -- -- -- SpO2 Temp src Heart Rate Source Patient Position -- -- -- -- BP Location FiO2 (%) -- -- Physical Exam Vitals and nursing note reviewed. Constitutional: General: He is not in acute distress. Appearance: He is well-developed. He is not ill-appearing. HENT: Head: Normocephalic and atraumatic. Nose: Congestion present. Mouth/Throat: Mouth: Mucous membranes are moist. Pharynx: Oropharynx is clear. No oropharyngeal exudate or posterior oropharyngeal erythema. Eyes: Extraocular Movements: Extraocular movements intact. Conjunctiva/sclera: Conjunctivae normal. Pupils: Pupils are equal, round, and reactive to light. Cardiovascular: Rate and Rhythm: Normal rate and regular rhythm. Pulses: Normal pulses. Heart sounds: Normal heart sounds. No murmur heard. Pulmonary: Effort: Pulmonary effort is normal. No respiratory distress. Breath sounds: Normal breath sounds. Abdominal: General: Abdomen is flat. Bowel sounds are normal. There is no distension. Palpations: Abdomen is soft. There is no mass. Tenderness: There is no abdominal tenderness. There is no right CVA tenderness, left CVA tenderness, guarding or rebound. Hernia: No hernia is present. Musculoskeletal: General: No swelling. Normal range of motion. Cervical back: Neck supple. Skin: General: Skin is warm and dry. Capillary Refill: Capillary refill takes less than 2 seconds. Neurological: General: No focal deficit present. Mental Status: He is alert and oriented to person, place, and time. Psychiatric: Mood and Affect: Mood normal. Behavior: Behavior normal. Thought Content: Thought content normal. Judgment: Judgment normal. DIAGNOSTIC RESULTS RADIOLOGY (Per Emergency Physician): Interpretation per the Radiologist below, if available at the time of this note: XR chest 1 view Final Result Impression: No acute cardiopulmonary process. Report Dictated on Electronically Signed By: Live Stinson MD Electronically Signed Date/Time: 04/02/2023 11:06 AM EST LABS: Labs Reviewed SARS-COV-2, FLU A/B, AND RSV COM (more content not included)... Normal [facility] Laboratory - Microbiology an d Antimicrobial susceptibilityon 04-02-2023 FLUAV RNA MONTSERRAT+probe Ql (Resp) Not detected Not Detected [facility] FLUBV RNA MONTSERRAT+probe Ql (Resp) Not detected Not Detected [facility] RSV RNA MONTSERRAT+probe Ql (Resp) Detected Abnormal Not Detected [facility] SARS-CoV-2 (COVID-19) RNA MONTSERRAT+probe Ql (Resp) Not detected Not Detected [facility] SARS-COV-2, FLU A/B, AND RSV COMBOon 04-02-2023 SARS-CoV-2 (COVID-19) RNA MONTSERRAT+probe Ql (Unsp spec) SARS-COV-2 Reference Not Detected Not Detected RESPIRATORY SYNCYTIAL VIRUS (A) Reference Detected Not Detected INFLUENZA A (CEPHEID) Reference Not Detected Not Detected INFLUENZA B (CEPHEID) Reference Not Detected Not Detected ORDER COMMENTS: Methodology: real-time, RT-PCR Normal [facility] Comment on above: Performed By: #### L [id number] #### Gallery Or Museum Technician: CRISTIANA BROWN ([id number]) [facility] ([facility]) [address] [place] [address] SARS-CoV-2, Flu A/B, and RSV Comboon 04-02-2023 Interpretation and review of laboratory results Abnormal [facility] Methodology: real-time, RT-PCR [facility] Urinalysis complete panel (U )Ordered By: Mónica Grace on 04-02-2023 Bacteria LM.HPF (Urine sed) [#/Area] Few Abnormal Negative /HPF [facility] Bilirubin Ql (U) Negative Negative mg/dL [facility] Clarity (U) Clear Clear [facility] Color (U) Yellow Lt. Yellow [facility] Epithelial cells.squamous LM.HPF (Urine sed) [#/Area] 0-[facility] Glucose Ql (U) Normal Normal (<70) mg/dL [facility] Hemoglobin Ql (U) Negative Negative mg/dL [facility] Hyaline casts Auto (Urine sed) [#/Area] Negative Negative /LPF [facility] Interpretation and review of laboratory results Abnormal [facility] Ketones (U) [Mass/Vol] Negative Negat harper mg/dL [facility] Leukocyte esterase Test strip Ql (U) 25 Abnormal Negative Irina/uL [facility] Mucus LM.HPF (Urine sed) [#/Area] Many Abnormal Negative /LPF [facility] Nitrite Ql (U) Negative Negative [facility] th pH (U) 6.0 [pH] 5.0 - 8.0 pH [facility] Protein (U) [Mass/Vol] 10 mg/dL Abnormal Negative [facility] RBC LM.HPF (Urine sed) [#/Area] 3-5 Abnormal [facility] Specific gravity (U) [Rel density] 1.033 High 1.005 - 1.030 [facility] Urobilinogen (U) [Mass/Vol] 3 mg/dL Abnormal Normal (0-1) [facility] WBC LM.HPF (Urine sed) [#/Area] 3-5 [facility] XR Chest Single viewon 04-02 Impression: No acute cardiopulmonary process. Report Dictated on Electronically Signed By: Live Stinson MD Electronically Signed Date/Time: 04/02/2023 11:06 AM EST [facility] EMERGENCY DEPARTMENT [employer] SYSTEM Patient Name: NESS BEAVER : 1980 Exam Date/Time: 04/02/2023 10:17 Procedure: XR CHEST 1 VIEW Ordering Provider: VELIZ SAMANTHA Reason For Exam: Productive Cough Examination: Frontal chest Clinical Indication: Productive Cough Comparison: None Findings: Lungs appear normally inflated. There is no focal consolidation, effusion, or pulmonary edema identified. The cardiomediastinal silhouette is within normal limits. There is no evidence of acute osseous abnormality. There is mild to moderate thoracic scoliosis apex leftward. [facility] Live Stinson MD - 04/02/2023 Patient Name: NESS BEAVER : 1980 Exam Date/Time: 04/02/2023 10:17 Procedure: XR CHEST 1 VIEW Ordering Provider: VELIZ SAMANTHA Reason For Exam: Productive Cough Examination: Frontal chest Clinical Indication: Productive Cough Comparison: None Findings: Lungs appear normally inflated. There is no focal consolidation, effusion, or pulmonary edema identified. The cardiomediastinal silhouette is within normal limits. There is no evidence of acute osseous abnormality. There is mild to moderate thoracic scoliosis apex leftward. IMPRESSION: Impression: No acute cardiopulmonary process. Report Dictated on Electronically Signed By: Live Stinson MD Electronically Signed Date/Time: 04/02/2023 11:06 AM EST [facility] Radiology Study observation (narrative) [facility] XR Chest Single viewOrdered By: Live Stinson on 04-02-2023 [facility] [employer] Work Phone: ED Nursing Noteon 03-06-2023 ED Nursing Note Discharge instructions reviewed with patient and he understands. He will take 2 doses of 8mg suboxone on 03/07,03/08, and 03/09. He will not take any suboxone on 03/10 for appointment at [facility]. I called [facility] for transportation. Patient discharged to wait in waiting room for ride. Luba Abbott RN 03/06/23 193 Normal [facility] ED Nursing Note Patient spoke with Peer college basketball coach on the phone. PRC card provided. Verified with Care Transport Nurse at [facility] that he is a patient there. Luba Abbott RN 03/06/23 1903 Normal [facility] ED Nursing Note Patient in MAT room, with suboxone prescription, has 6 8 mg suboxone strips. States the suboxone is not working with a plan to transition to methadone on Wednesday. Looking to increase dose as we are unable to initiate methadone in the ED. Addiction medicine was consulted from [facility] and stated there is no concern to increase dose with methadone transition in the future but to instruct patient to hold dose the morning of his appointment. Normal [facility] ED Nursing Note Ness Beaver was transferred from [facility] to [facility] for suboxone dosing. He was driven by [facility] employee. Dr. Uribe was consulted to discuss plan of care for this patient. He was taking suboxone 16mg and had elevated liver enzymes. His dose was stopped in January. On 02/21 he was sent to [facility] due to potential suicidal ideation. He restarted suboxone on 02/22 at 4mg. He is currently on 8/2mg per day. Last dose was on 03/05/2023 suboxone 8/2 film. He has the filled rx on him. He has an appointment to transfer to Methadone on 03/10/23 at [facility]. Luba Abbott RN 03/06/23 1715 [facility] ED Nursing Note Patient being transported over to [facility] by private vehicle (I spoke with Julio Cesar from [facility] who is coming to pick the patient up). Resources have been sent with patient. Vitals remain stable. Viki Mathew RN 03/06/23 1455 [facility] ED Nursing Note Faxed consent form for Addiction medicine and Peer college basketball coach pamphlet to [facility] Esme Jeter RN 03/06/23 1301 Esme Jeter RN 03/06/23 1302 [facility] ED Nursing Note MAT nurse unavailable until 11 am. Pt aware and will wait in waiting room until he can be evaluated Reyna Cason RN 03/06/23 0758 [facility] ED Provider Noteon ED Provider Note EMERGENCY DEPARTMENT ENCOUNTER Pt Name: Ness Beaver Birthdate 1980 Date of evaluation: 03/06/2023 ED Provider: Maribeth Veliz APRN Patient seen independently within my scope of practice with an Emergency Medicine attending available for supervision. CHIEF COMPLAINT Chief Complaint Patient presents with Addiction Problem Sent from [place] via Dr. Uribe to see MAT nurse. Acc was consulted from [place] via telehealth. Pt stated on 16/4 mg suboxone via telehealth. Now stating on 8/2 and prescription endorses this. His goal is to transition to methadone and went to [place] today through [facility] but was unable to dose due to them not having his information. They sent him to [facility]. Unable to dose methadone as a new prescription but per addiction consult plan is to increase dose of suboxone. HISTORY OF PRESENT ILLNESS (Location/Symptom, Timing/Onset, Context/Setting, Quality, Duration, Modifying Factors, Severity) Note limiting factors. I wore appropriate PPE for the entirety of this encounter. HPI Ness Beaver is a 42 y.o. who presents to the emergency department from [facility] for Suboxone dosing. Patient states that his Suboxone therapy was discontinued on 21 February due to elevated liver enzymes. Patient states he was then sent to [facility] due to suicidal ideation. Suboxone therapy restarted on 22 February at 4 mg daily. Patient has been titrated up to 8 mg daily with his last dose yesterday. He does however state that this dose has not been sufficient for managing withdrawal symptoms. There was a misunderstanding at [facility] at which time it was understood that patient was on 16 mg daily of Suboxone and still needed an increase in dose. Because of this patient was sent to [facility] to be seen by addiction medicine physician. Patient does have 6 films of 8/2 Suboxone on him. Has appointment to transfer to methadone on 03/10/2023 at [facility]. Patient endorses some chills, mild nausea, mild headaches. Denies fevers, chest pain, shortness of breath, cough, abdominal pain, vomiting, diarrhea, constipation. Denies auditory or visual hallucinations. Additionally patient denies suicidal or homicidal ideation. Nursing Notes were reviewed. Limitations to history: None Outside historians: None REVIEW OF SYSTEMS Review of Systems Pertinent positives and negatives as per HPI. 5 systems reviewed PAST MEDICAL HISTORY Past Medical History: Diagnosis Date Depression PTSD (post-traumatic stress disorder) SURGICAL HISTORY Past Surgical History: Procedure Laterality Date TONSILLECTOMY CURRENT MEDICATIONS Discharge Medication List as of 03/06/2023 6:56 PM CONTINUE these medications which have NOT CHANGED Details buprenorphine-naloxo ne (Suboxone) 8-[address] 1 tablet under the tongue Once., Historical Med sertraline (Zoloft) 100 MG tablet Take by mouth., Historical Med ALLERGIES Patient has no known allergies. FAMILY HISTORY No family history on file. SOCIAL HISTORY Social History Socioeconomic History Marital status: Single Tobacco Use Smoking status: Never Substance and Sexual Activity Alcohol use: No Drug use: No Comment: methadone SCREENINGS PHYSICAL EXAM ED Triage Vitals Temp Pulse Resp BP -- -- -- -- SpO2 Temp src Heart Rate Source Patient Position -- -- -- -- BP Location FiO2 (%) -- -- Physical Exam Vitals and nursing note reviewed. Constitutional: General: He is not in acute distress. Appearance: He is well-developed. HENT: Head: Normocephalic and atraumatic. Nose: Nose normal. Mouth/Throat: Mouth: Mucous membranes are moist. Pharynx: Oropharynx is clear. Eyes: Extraocular Movements: Extraocular movements intact. Conjunctiva/sclera: Conjunctivae normal. Pupils: Pupils are equal, round, and reactive to light. Cardiovascular: Rate and Rhythm: Normal rate and regular rhythm. Pulses: Normal pulses. Heart sounds: Normal heart sounds. No murmur heard. Pulmonary: Effort: Pulmonary effort is normal. No respiratory distress. Breath sounds: Normal breath sounds. Abdominal: General: Abdomen is flat. Bowel sounds are normal. Palpations: Abdomen is soft. Tenderness: There is no abdominal tenderness. Musculoskeletal: General: No swelling. Normal range of motion. Cervical back: Normal range of motion and neck supple. Skin: General: Skin is warm and dry. Capillary Refill: Capillary refill takes less than 2 seconds. Neurological: General: No focal deficit present. Mental Status: He is alert. Psychiatric: Mood and Affect: Mood normal. Behavior: Behavior normal. Thought Content: Thought content normal. Judgment: Judgment normal. DIAGNOSTIC RESULTS RADIOLOGY (Per Emergency Physician): Interpretation per the Radiologist below, if available at the time of this note: No orders to display (more content not included)... Normal [facility] ED Provider Note I did not participate in care of this patient Maribeth Veliz, UNDERWATER HUNTER 03/06/23 1706 Normal [facility] ED Provider Note EMERGENCY DEPARTMENT ENCOUNTER Pt Name: Ness Beaver Birthdate 1980 Date of evaluation: 03/06/2023 ED Provider: Katie Loza DO CHIEF COMPLAINT Chief Complaint Patient presents with Drug / Alcohol Assessment Pt presents for dose of methadone. States he has been on suboxone since January 27 after leaving detox but is trying to switch over to methadone which he used to take because it helped his symptoms better. Last had suboxone dose 3 days ago and last took methadone in November before going to detox. Was dropped off here by [facility] [facility] to sort out a dose. HISTORY OF PRESENT ILLNESS (Location/Symptom, Timing/Onset, Context/Setting, Quality, Duration, Modifying Factors, Severity) Note limiting factors. I wore appropriate PPE for the entirety of this encounter. HPI 42-year-old male presents emergency department today seeking methadone initiation. Is currently at [facility] and was dropped off here for possible emergency dose. He was taken to [facility] and they have an appointment for him on Wednesday but cannot initiate until then unless he has a cancellation there. He denies any alcohol use. Last used IV drugs on January 27. He last used methadone in November of this year. He states it was helping him. Of note he currently has a prescription for the highest dose of Suboxone but states is not helping him. Nursing Notes were reviewed. Limitations to history: None Outside historians: None REVIEW OF SYSTEMS Review of Systems Psychiatric/Behavior al: History of substance abuse Pertinent positives and negatives as per HPI. PAST MEDICAL HISTORY Past Medical History: Diagnosis Date Depression PTSD (post-traumatic stress disorder) SURGICAL HISTORY Past Surgical History: Procedure Laterality Date TONSILLECTOMY CURRENT MEDICATIONS Discharge Medication List as of 03/06/2023 3:04 PM CONTINUE these medications which have NOT CHANGED Details sertraline (Zoloft) 100 MG tablet Take by mouth., Historical Med ALLERGIES Patient has no known allergies. FAMILY HISTORY No family history on file. SOCIAL HISTORY Social History Socioeconomic History Marital status: Single Tobacco Use Smoking status: Never Substance and Sexual Activity Alcohol use: No Drug use: No Comment: methadone SCREENINGS Sophia Coma Scale Best Eye Response: Spontaneous Best Verbal Response: Oriented Best Motor Response: Follows commands Sophia Coma Scale Score: 15 PHYSICAL EXAM ED Triage Vitals Temp Heart Rate Resp BP 03/06/23 0727 03/06/23 0727 03/06/23 0727 03/06/23 0727 36.6 ?C (97.8 ?F) 67 18 (!) 142/86 SpO2 Temp Source Heart Rate Source Patient Position 03/06/23 0703/06/23 0727 03/06/23 0727 03/06/23 1157 100 % Temporal Monitor Sitting BP Location FiO2 (%) 03/06/23 1157 -- Left arm Physical Exam Vitals and nursing note reviewed. Constitutional: General: He is not in acute distress. Appearance: He is well-developed. HENT: Head: Normocephalic and atraumatic. Cardiovascular: Rate and Rhythm: Normal rate and regular rhythm. Heart sounds: No murmur heard. Pulmonary: Effort: Pulmonary effort is normal. No respiratory distress. Breath sounds: Normal breath sounds. Musculoskeletal: General: No swelling. Cervical back: Neck supple. Skin: General: Skin is warm and dry. Neurological: Mental Status: He is alert. Psychiatric: Mood and Affect: Mood normal. Thought Content: Thought content normal. DIAGNOSTIC RESULTS Procedures/EKG: EKG was reviewed by myself. Physician EKG interpretation can be found in [facility] RADIOLOGY (Per Emergency Physician): Interpretation per the Radiologist below, if available at the time of this note: No orders to display ED BEDSIDE ULTRASOUND: Performed by ED Physician - none LABS: Labs Reviewed HEPATIC FUNCTION PANEL - Abnormal Result Value BILIRUBIN, TOTAL 0.7 BILIRUBIN, DIRECT 0.0 ALKALINE PHOSPHATASE 71 AST (SGOT) 60 (*) ALT 106 (*) ALBUMIN 4.2 TOTAL PROTEIN 7.6 All other labs were within normal range or not returned as of this dictation. EMERGENCY DEPARTMENT COURSE and DIFFERENTIAL DIAGNOSIS/MDM: Vitals: Vitals: 03/06/23 0727 03/06/23 1157 03/06/23 1450 BP: (!) 142/86 117/79 120/81 BP Location: Left arm Patient Position: Sitting Pulse: 67 66 64 Resp: 18 16 16 Temp: 36.6 ?C (97.8 ?F) TempSrc: Temporal SpO2: 100% 99% 97% ED Course as of 03/06/23 1528 Sat Mar 06, 2023 1154 42-year-old male presents emergency department today seeking methadone initiation. Is currently at [facility] [employer] [employer] and was dropped off here for possible emergency dose. He was taken to [facility] and they have an appointment for him on Wednesday but cannot initiate until then unless he has a cancellation there. He denies any alcohol use. Last used IV drugs on January 27. He last used methadone in November of this year. He states it was helping him. Of note he cur (more content not included)... Normal [facility] HEPATIC FUNCTION PANELon Albumin [Mass/Vol] 4.2 g/dL Normal 3.5-5.0 [facility] Comment on above: Performed By: #### L AB20 ####Gallery Or Museum Technician: STEPHANIE GONZALES ([id number])[facility] LAURA (SBHLAB)[address] [place] [address] ALP [Catalytic activity/Vol] 71 U/L Normal 38-126 [facility] Comment on above: Performed By: #### L AB20 ####Gallery Or Museum Technician: STEPHANIE THRASHERGumaroSONIA ([id number])[facility] (SBHLAB)[address] ALT [Catalytic activity/Vol] 106 U/L High 0-49 [facility] Comment on above: Performed By: #### L AB20 ####Gallery Or Museum Technician: STEPHANIE THRASHERJORGE ([id number])[facility] (SBHLAB)[address] AST [Catalytic activity/Vol] 60 U/L High 15-46 [facility] Comment on above: Performed By: #### L AB20 ####Gallery Or Museum Technician: STEPHANIE JANET ([id number])[facility] (SBHLAB)[address] Bilirubin [Mass/Vol] 0.7 mg/dL Normal 0.2-1.3 [facility] Comment on above: Performed By: #### L AB20 ####Gallery Or Museum Technician: STEPHANIE MOELLERSONIA ([id number])[facility] (SBHLAB)[address] Bilirubin.indirect [Mass/Vol] 0.0 mg/dL Normal 0.0-0.3 [facility] Comment on above: Performed By: #### L AB20 ####Gallery Or Museum Technician: STEPHANIE GONZALES ([id number])[facility] (SBHLAB)[address] [place] [address] Protein [Mass/Vol] 7.6 g/dL Normal 6.3-8.2 [facility] Comment on above: Performed By: #### L AB20 ####Gallery Or Museum Technician: STEPHANIE MOELLERSONIA ([id number])[facility] (SBHLAB)[address] Hepatic function 2000 panelo n 03-06-2023 Albumin [Mass/Vol] 4.2 g/dL 3.5 - 5.0 g/dL [facility] ALP [Catalytic activity/Vol] 71 U/L 38 - 126 U/L [facility] ALT [Catalytic activity/Vol] 106 U/L High 0 - 49 U/L [facility] AST [Catalytic activity/Vol] 60 U/L High 15 - 46 U/L [facility] Bilirubin [Mass/Vol] 0.7 mg/dL 0.2 - 1 .3 mg/dL [facility] Bilirubin.conjugated [Mass/Vol] 0.0 mg/dL 0.0 - 0.3 mg/dL [facility] Interpretation and review of laboratory results Abnormal [facility] Protein [Mass/Vol] 7.6 g/dL 6.3 - 8.2 g/dL [facility] SIGIFREDO Antinuclear Antibodieson 03-02-2023 Antinuclear Abs, IFA Positive Critically abnormal . [facility] Comment on above: Order Comment: WILIAM nash is gonna try with ultrasound AB 1751 Result Comment: Nega tive <1:80 Borderline 1:80 Positive >1:80 Performed By: #### C MP, SCAN CBC #### [facility] [address] Homogeneous Pattern 1:80 Normal . [facility] Comment on above: Order Comment: WILIAM nash is gonna try with ultrasound AB 1751 Result Comment: ICAP nomenclature: AC-1 Performed By: #### C MP, SCAN CBC #### [facility] [address] [place] [address] [place] Midbody Pattern 1:[address] [facility] Comment on above: Order Comment: WILIAM nash is gonna try with ultrasound AB 1751 Result Comment: ICAP nomenclature: AC-27 Performed By: #### C MP, SCAN CBC #### [facility] [address] [place] [address] [place] Note [address] [facility] Comment on above: Order Comment: WILIAM nash is gonna try with ultrasound AB 1751 Result Comment: Kristine arnold Potential Disease Association Homogeneous Systemic Lupus Erythematosus, Drug Induced Systemic Lupus Erythematosus, Chronic Autoimmune hepatitis, Juvenile Idiopathic Arthritis Speckled Sjogren Syndrome, Systemic Lupus Erythematosus, Subacute Cutaneous Lupus, Lupus, Congenital Heart Block, Mixed Connective Tissue Disease, Scleroderma-diffuse, Scleroderma-Autoimmune Myositis Overlap Syndrome, Systemic Lupus Ywdzlpjxqxmdf-Qfjfnwkjead-Rjxnkpczfw Myositis Overlap Syndrome, Systemic Autoimmune Rheumatic Disease, Undifferentiated Connective Tissue Disease Nucleolar Systemic Sclerosis, Scleroderma-Autoimmune Myositis Overlap Syndrome, Sjogren Syndrome, Raynaud phenomenon, Pulmonary Arterial Hypertension, Systemic Autoimmune Rheumatic Disease, Cancer Centromere Scleroderma-CREST, Limited Cutaneous SSc, Raynaud's Phenomenon, Primary Biliary Cholangitis Nuclear Dot Primary Biliary Cholangitis Nuclear Primary Biliary Cholangitis, Autoimmune Membrane Hepatitis/Liver disease, Systemic Autoimmune Rheumatic Disease, Autoimmune Cytopenias, Linear Scleroderma, Antiphospholipid Syndrome Performed at: [facility] As Seen on [address] [id number] Virology Teacher: Ta Norris PhD, Phone: [phone] Performed By: #### C MP, SCAN CBC #### [facility] [address] [place] [address] [facility] Speckled Pattern 1:80 Normal . [facility] Comment on above: Order Comment: WILIAM Gallardo saad is gonna try with ultrasound AB 1751 Result Comment: ICAP nomenclature: AC-2,4,5,29 Performed By: #### C MP, SCAN CBC #### [facility] [address] [place] [id number] [place] Zvalb-7-Rywiakecmdk Phenotyp nadeem 03-02-2023 Alpha 1 Anti-Trypsin 126 mg/dL Normal 101-187 [facility] Comment on above: Order Comment: WILIAM nash is gonna try with ultrasound AB 1751 Performed By: #### C MP, SCAN CBC #### [facility] [address] [place] [address] [facility] Phenotype (P1) MM Normal . [facility] Comment on above: Order Comment: WILIAM Gallardo saad is gonna try with ultrasound AB 1751 Result Comment: Phen otype Population A-1-AT Concentration* Incidence % % of MM (Typical Range) MM 86.5% 100% (96 - 189) MS 8.0% 86% (83 - 161) MZ 3.9% 61% (60 - 111) FM 0.4% 100% (93 - 191) SZ 0.3% 41% (42 - 75) SS 0.1% 64% (62 - 119) ZZ 0.05% 19% (16 - 38) FS 0.05% 70% (70 - 128) FZ Unknown 46% (44 - 88) FF Unknown Unknown *A-1-AT concentration in the homozygous MM phenotype is taken as the reference normal. Percent deficiency in each phenotype is reported relative to this reference. Ranges used to confirm phenotype. Performed at: [facility] As Seen on [address] [id number] Virology Teacher: Ta Norris PhD, Phone: [phone] Performed at: BN - [facility] [address] [id number] Virology Teacher: Alexys Cooper MD, Phone: [phone] Performed By: #### C MP, SCAN CBC #### [address] Ceruloplasminon 03-02-2023 Ceruloplasmin 20.7 mg/dL Normal 16.0-31.[address] [facility] Comment on above: Order Comment: Reaso n for Exam Elevated liver enzymes Result Comment: Perf ormed at: - [facility] [address] [id number] Virology Teacher: Ta Norris PhD, Phone: [phone] PERFORMED BY: [place] [address] PATHOLOGIST BLOWER OPERATOR CHRISTOPHER CARTER M.D. Performed By: #### H CV RX PCR, HBV PCR, SMAB, HAABT, ALPHA PHEN, HBCAB, HBSAG, MITOM2, CERULOP, HBS AB QUANT, HBSAB, SIGIFREDO, IGG, HCBIGM, HEMOCHROM, L-K MICRO, HAAB #### [facility] , #### LEONA, HEPATIC #### [facility] [address] [place] [address] Ferritinon 03-02-2023 Ferritin [Mass/Vol] 86.4 ng/mL Normal 23.9-336.2 [facility] Comment on above: Order Comment: Reaso n for Exam Elevated liver enzymes Result Comment: PERF ORMED BY: [place] [address] PATHOLOGIST BLOWER OPERATOR CHRISTOPHER CARTER M.D. Performed By: #### H CV RX PCR, HBV PCR, SMAB, HAABT, ALPHA PHEN, HBCAB, HBSAG, MITOM2, CERULOP, HBS AB QUANT, HBSAB, SIGIFREDO, IGG, HCBIGM, HEMOCHROM, L-K MICRO, HAAB #### [facility] , #### LEONA, HEPATIC #### [facility] [address] [place] [address] Hep B Real-Time PCR, Quanton 03-02-2023 HBV As IU/mL <[address] [facility] Comment on above: Order Comment: Reaso n for Exam Elevated liver enzymes Result Comment: HBV DNA detected Performed By: #### H CV RX PCR, HBV PCR, SMAB, HAABT, ALPHA PHEN, HBCAB, HBSAG, MITOM2, CERULOP, HBS AB QUANT, HBSAB, SIGIFREDO, IGG, HCBIGM, HEMOCHROM, L-K MICRO, HAAB #### [facility] , #### LEONA, HEPATIC #### [facility] [address] Log10 HBV (As IU/mL) Normal . [facility] Comment on above: Order Comment: Reaso n for Exam Elevated liver enzymes Result Comment: Resu lt Units: log10 IU/mL Unable to calculate result since non-numeric result obtained for component test. Performed By: #### H CV RX PCR, HBV PCR, SMAB, HAABT, ALPHA PHEN, HBCAB, HBSAG, MITOM2, CERULOP, HBS AB QUANT, HBSAB, SIGIFREDO, IGG, HCBIGM, HEMOCHROM, L-K MICRO, HAAB #### [facility] , #### LEONA, HEPATIC #### [facility] [address] Test Information: Normal . [facility] Comment on above: Order Comment: Reaso n for Exam Elevated liver enzymes Result Comment: The reportable range for this assay is 10 IU/mL to 1 billion IU/mL. Performed at: - [facility] [id number] Virology Teacher: Alexys Cooper MD, Phone: [phone] PERFORMED BY: [place] [address] PATHOLOGIST BLOWER OPERATOR CHRISTOPHER CARTER M.D. Performed By: #### H CV RX PCR, HBV PCR, SMAB, HAABT, ALPHA PHEN, HBCAB, HBSAG, MITOM2, CERULOP, HBS AB QUANT, HBSAB, SIGIFREDO, IGG, HCBIGM, HEMOCHROM, L-K MICRO, HAAB #### [facility] , #### LEONA, HEPATIC #### [facility] [address] Result Comment: The quantitative range of this assay is 15 IU/mL to 100 million IU/mL. Hep C Ab wRfx to Qnt PCRon 0 03-02-2023 HCV Log10 3.[address] [facility] Comment on above: Order Comment: Reaso n for Exam Elevated liver enzymes Result Comment: Resu lt Units: log10 IU/mL Performed By: #### H CV RX PCR, HBV PCR, SMAB, HAABT, ALPHA PHEN, HBCAB, HBSAG, MITOM2, CERULOP, HBS AB QUANT, HBSAB, SIGIFREDO, IGG, HCBIGM, HEMOCHROM, L-K MICRO, HAAB #### [facility] , #### [place], HEPATIC #### [facility] [address] Hepatitis C Quantitation [address] [facility] Comment on above: Order Comment: Reaso n for Exam Elevated liver enzymes Performed By: #### H CV RX PCR, HBV PCR, SMAB, HAABT, ALPHA PHEN, HBCAB, HBSAG, MITOM2, CERULOP, HBS AB QUANT, HBSAB, SIGIFREDO, IGG, HCBIGM, HEMOCHROM, L-K MICRO, HAAB #### [facility] , #### [place], HEPATIC #### [address] Hepatitis C Virus Antibody Reactive Critically abnormal Non Reactive [facility] Comment on above: Order Comment: Reaso n for Exam Elevated liver enzymes Performed By: #### H CV RX PCR, HBV PCR, SMAB, HAABT, ALPHA PHEN, HBCAB, HBSAG, MITOM2, CERULOP, HBS AB QUANT, HBSAB, SIGIFREDO, IGG, HCBIGM, HEMOCHROM, L-K MICRO, HAAB #### [facility] , #### [place], HEPATIC #### [address] Interpretation Normal . [facility] Comment on above: Order Comment: Reaso n for Exam Elevated liver enzymes Result Comment: Posi tive HCV antibody screen with the presence of HCV RNA is consistent with active infection. Performed at: - [address] [id number] Virology Teacher: Ta Norris PhD, Phone: [phone] Performed at: - [address] [id number] Virology Teacher: Alexys Cooper MD, Phone: [phone] Performed By: #### H CV RX PCR, HBV PCR, SMAB, HAABT, ALPHA PHEN, HBCAB, HBSAG, MITOM2, CERULOP, HBS AB QUANT, HBSAB, SIGIFREDO, IGG, HCBIGM, HEMOCHROM, L-K MICRO, HAAB #### [facility] , #### [place], HEPATIC #### [facility] [address] Hepatic Panelon 03-02-2023 Albumin [Mass/Vol] 4.5 g/dL Normal 3.5-5.7 [facility] Comment on above: Order Comment: Reaso n for Exam Elevated liver enzymes Performed By: #### H CV RX PCR, HBV PCR, SMAB, HAABT, ALPHA PHEN, HBCAB, HBSAG, MITOM2, CERULOP, HBS AB QUANT, HBSAB, SIGIFREDO, IGG, HCBIGM, HEMOCHROM, L-K MICRO, HAAB #### [facility] , #### [place], HEPATIC #### [facility] [address] [place] [address] Albumin/Globulin [Mass ratio] 1.5 {ratio} Normal [facility] Comment on above: Order Comment: Reaso n for Exam Elevated liver enzymes Performed By: #### H CV RX PCR, HBV PCR, SMAB, HAABT, ALPHA PHEN, HBCAB, HBSAG, MITOM2, CERULOP, HBS AB QUANT, HBSAB, SIGIFREDO, IGG, HCBIGM, HEMOCHROM, L-K MICRO, HAAB #### [facility] , #### [place], HEPATIC #### [facility] [address] ALP [Catalytic activity/Vol] 84 U/L Normal 34-[address] [facility] Comment on above: Order Comment: Reaso n for Exam Elevated liver enzymes Performed By: #### H CV RX PCR, HBV PCR, SMAB, HAABT, ALPHA PHEN, HBCAB, HBSAG, MITOM2, CERULOP, HBS AB QUANT, HBSAB, SIGIFREDO, IGG, HCBIGM, HEMOCHROM, L-K MICRO, HAAB #### [facility] , #### [place], HEPATIC #### [facility] [address] [place], [place] [id number] [place] ALT [Catalytic activity/Vol] 78 U/L High 7-[address] [facility] Comment on above: Order Comment: Reaso n for Exam Elevated liver enzymes Performed By: #### H CV RX PCR, HBV PCR, SMAB, HAABT, ALPHA PHEN, HBCAB, HBSAG, MITOM2, CERULOP, HBS AB QUANT, HBSAB, SIGIFREDO, IGG, HCBIGM, HEMOCHROM, L-K MICRO, HAAB #### [facility] , #### [place], HEPATIC #### [facility] [address] [place] [address] [place] AST [Catalytic activity/Vol] 46 U/L High 13-[address] [facility] Comment on above: Order Comment: Reaso n for Exam Elevated liver enzymes Performed By: #### H CV RX PCR, HBV PCR, SMAB, HAABT, ALPHA PHEN, HBCAB, HBSAG, MITOM2, CERULOP, HBS AB QUANT, HBSAB, SIGIFREDO, IGG, HCBIGM, HEMOCHROM, L-K MICRO, HAAB #### [facility] , #### [place], HEPATIC #### [facility] [address] [place] [address] [place] Bilirubin [Mass/Vol] 0.5 mg/dL Normal 0.3-1.0 [facility] Comment on above: Order Comment: Reaso n for Exam Elevated liver enzymes Performed By: #### H CV RX PCR, HBV PCR, SMAB, HAABT, ALPHA PHEN, HBCAB, HBSAG, MITOM2, CERULOP, HBS AB QUANT, HBSAB, SIGIFREDO, IGG, HCBIGM, HEMOCHROM, L-K MICRO, HAAB #### [facility] , #### [place], HEPATIC #### [address] Bilirubin,Indirect 0.3 mg/dL Normal [facility] Comment on above: Order Comment: Reaso n for Exam Elevated liver enzymes Performed By: #### H CV RX PCR, HBV PCR, SMAB, HAABT, ALPHA PHEN, HBCAB, HBSAG, MITOM2, CERULOP, HBS AB QUANT, HBSAB, SIGIFREDO, IGG, HCBIGM, HEMOCHROM, L-K MICRO, HAAB #### [facility] , #### [place], HEPATIC #### [address] Bilirubin.indirect [Mass/Vol] 0.20 mg/dL High 0.03-0.[address] [facility] Comment on above: Order Comment: Reaso n for Exam Elevated liver enzymes Performed By: #### H CV RX PCR, HBV PCR, SMAB, HAABT, ALPHA PHEN, HBCAB, HBSAG, MITOM2, CERULOP, HBS AB QUANT, HBSAB, SIGIFREDO, IGG, HCBIGM, HEMOCHROM, L-K MICRO, HAAB #### [facility] , #### [place], HEPATIC #### [address] Globulin (S) [Mass/Vol] 3.0 g/dL Normal [facility] Comment on above: Order Comment: Reaso n for Exam Elevated liver enzymes Performed By: #### H CV RX PCR, HBV PCR, SMAB, HAABT, ALPHA PHEN, HBCAB, HBSAG, MITOM2, CERULOP, HBS AB QUANT, HBSAB, SIGIFREDO, IGG, HCBIGM, HEMOCHROM, L-K MICRO, HAAB #### [facility] , #### [place], HEPATIC #### [place] [address] [place] Protein [Mass/Vol] 7.5 g/dL Normal 6.4-8.9 [facility] Comment on above: Order Comment: Reaso n for Exam Elevated liver enzymes Performed By: #### H CV RX PCR, HBV PCR, SMAB, HAABT, ALPHA PHEN, HBCAB, HBSAG, MITOM2, CERULOP, HBS AB QUANT, HBSAB, SIGIFREDO, IGG, HCBIGM, HEMOCHROM, L-K MICRO, HAAB #### [facility] , #### [place], HEPATIC #### [facility] [address] Hepatitis A Antibody IgMon 0 03-02-2023 Hepatitis A Antibody IgM Negative Normal Negative [facility] Comment on above: Order Comment: Reaso n for Exam Elevated liver enzymes Performed By: #### H CV RX PCR, HBV PCR, SMAB, HAABT, ALPHA PHEN, HBCAB, HBSAG, MITOM2, CERULOP, HBS AB QUANT, HBSAB, SIGIFREDO, IGG, HCBIGM, HEMOCHROM, L-K MICRO, HAAB #### [facility] , #### [place], HEPATIC #### [facility] [address] Hepatitis A Antibody Totalon 03-02-2023 Hepatitis A Antibody Total Negative Normal Negative [facility] Comment on above: Order Comment: Reaso n for Exam Elevated liver enzymes Result Comment: Comm ent: The HAV total antibody assay detects both IgG and IgM but does not differentiate between them. A negative result suggests susceptibility to infection. A positive result could be due to vaccination, previously resolved infection or active infection. Testing for HAV IgM should be performed if active HAV infection is suspected. [facility] offers profiles that will automatically reflex positive HAV total antibody results to IgM (e.g., panel #[id number] HAV Antibody w/ Rfx). Performed By: #### H CV RX PCR, HBV PCR, SMAB, HAABT, ALPHA PHEN, HBCAB, HBSAG, MITOM2, CERULOP, HBS AB QUANT, HBSAB, SIGIFREDO, IGG, HCBIGM, HEMOCHROM, L-K MICRO, HAAB #### [facility] , #### [place], HEPATIC #### [facility] [address] [place] [address] Hepatitis B Core Antibodyon 03-02-2023 Hepatitis B Core Antibody Positive Critically abnormal Negative [facility] Comment on above: Order Comment: WILIAM nash is gonna try with ultrasound AB 1751 Performed By: #### C MP, SCAN CBC #### [facility] [address] [place] [address] Hepatitis B Core Antibody Ig Mon 03-02-2023 Hepatitis B Core Antibody IgM Negative Normal Negative [facility] Comment on above: Order Comment: Reaso n for Exam Elevated liver enzymes Result Comment: Perf ormed at: - [facility] [place] [id number] Virology Teacher: Ta Norris PhD, Phone: [phone] Performed By: #### H CV RX PCR, HBV PCR, SMAB, HAABT, ALPHA PHEN, HBCAB, HBSAG, MITOM2, CERULOP, HBS AB QUANT, HBSAB, SIGIFREDO, IGG, HCBIGM, HEMOCHROM, L-K MICRO, HAAB #### [facility] , #### [place], HEPATIC #### [facility] [address] [place] [address] Hepatitis B Surface Ab, Khanh ton 03-02-2023 Hepatitis B Surface Ab, Quant <3.1 Low Immunity>9.[address] [facility] Comment on above: Order Comment: WILIAM nash is gonna try with ultrasound AB 1751 Result Comment: Stat us of Immunity Anti-HBs Level Inconsistent with Immunity 0.0 - 9.9 Consistent with Immunity >9.9 PERFORMED BY: [place] [address] PATHOLOGIST BLOWER OPERATOR CHRISTOPHER CARTER M.D. Performed By: #### C MP, SCAN CBC #### [facility] [address] [place] [address] Hepatitis B Surface Antibody on 03-02-2023 Hepatitis B Surface Antibody Non-Reactive Normal . [facility] Comment on above: Order Comment: WILIAM Gallardo saad is gonna try with ultrasound AB 1751 Result Comment: Non Reactive: Inconsistent with immunity, less than 10 mIU/mL Reactive: Consistent with immunity, greater than 9.9 mIU/mL Performed By: #### C MP, SCAN CBC #### [facility] [address] [place] [id number] [facility] Hepatitis B Surface Antigeno n 03-02-2023 HBsAg Screen Positive Critically abnormal Negative [facility] Comment on above: Order Comment: WILIAM Gallardo saad is gonna try with ultrasound AB 1751 Result Comment: Posi tive HBsAg verified by algorithm coupled with screening index. Performed By: #### C MP, SCAN CBC #### [facility] [address] Hereditary Hemochromatosis,D NAon 03-02-2023 Hereditary Hemochromatosis Normal . [facility] Comment on above: Order Comment: Reaso n for Exam Elevated liver enzymes Result Comment: Resu lt: c.845G>A (p.Jgt014Opj) - Not Detected c.187C>G (p.Sdv35Fnr) - Not Detected c.193A>T (p.Wop64Vhs) - Not Detected Not associated with increased risk to develop clinical symptoms of Hereditary Hemochromatosis. In symptomatic individuals, other causes of iron overload should be evaluated. See Additional Information and Comments. Additional Clinical Information: Hereditary hemochromatosis (HFE related) is an autosomal recessive iron storage disorder. Patients may have a genetic diagnosis of hereditary hemochromatosis and never show clinical symptoms. Clinical symptoms typically appear between 40 to 60 years in males and after menopause in females. Signs and symptoms may include organ damage, primarily in the liver, risk for hepatocellular carcinoma, diabetes, and heart disease due to iron accumulation. Life expectancy may be decreased in individuals who develop cirrhosis. Treatment for clinically symptomatic individuals may include therapeutic phlebotomy. Liver transplant may be used to treat end stage liver failure. For preventive care, monitoring for iron overload is recommended for patients who are homozygous for c.845G>A (p.Clp261Cam) and have yet to experience clinical symptoms. Comments: The most common HFE variants associated with hereditary hemochromatosis are c.845G>A (p.Jnj954Eqj), c.187C>G (p.Syk49Jgo), c.193A>T (p.Mwk80Ywi). While patients homozygous for c.845G>A (p.Ofm776Kgh) are the most likely to present clinical symptoms, less than 10% develop clinically significant iron overload with tissue and organ damage. Genetic counseling is recommended to discuss the potential clinical implications of positive results, as well as recommendations for testing family members. Genetic Coordinators are available for health care providers to discuss results at [phone]). Test Details: Three variants analyzed: c.845G>A (p.Qvy570Crg), commonly referred to as C282Y c.187C>G (p.Tni21Eso), commonly referred to as H63D c.193A>T (p.Qdq93Txg), commonly referred to as S65C Methods/Limitations: DNA Analysis of the HFE gene (NM_000410.4) was performed by PCR amplification followed by restriction enzyme digestion analyses. Results must be combined with clinical information for the most accurate interpretation. Molecular- based testing is highly accurate, but as in any laboratory test, diagnostic errors may occur. False positive or false negative results may occur for reasons that include genetic variants, blood transfusions, bone marrow transplantation, somatic or tissue-specific mosaicism, mislabeled samples, or erroneous representation of family relationships. This test was developed and its performance characteristics determined by [employer]. It has not been cleared or approved by the Food and Drug Administration. References: Ken BR, Heber PC, Aidan KV, Chidi LW, Joseph ; [employer] Liver [employer]. Diagnosis and management of hemochromatosis: 2011 practice guideline by the [employer] Liver [employer]. Hepatology. 2011 Aug;54(1):328-43. doi: 10.1002/hep.89821. PMID: 79682706; PMCID: MAY3595589. Renetta G, Thalia P, Bryan MEIER, Patricia H, Candy O, Joe S, Elias I, Markos M, Saskia S. EMQN best practice guidelines for the molecular genetic diagnosis of hereditary hemochromatosis (HH). Eur J Hum Sia. 2016 May;24(4):479-95. doi: 10.1038/ejhg.2015.128. Epub 2014Sep 05. PMID: 41471477; PMCID: NBN2220340. Performed By: #### H CV RX PCR, HBV PCR, SMAB, HAABT, ALPHA PHEN, HBCAB, HBSAG, MITOM2, CERULOP, HBS AB QUANT, HBSAB, SIGIFREDO, IGG, HCBIGM, HEMOCHROM, L-K MICRO, HAAB #### [facility] , #### [place], HEPATIC #### [address] Reviewed by: Normal . [facility] Comment on above: Order Comment: Reaso n for Exam Elevated liver enzymes Result Comment: Daisha Hwang, Ph.D., FACMG Performed at: [facility] [address] [place], [place] [id number] Virology Teacher: Tato Foreman [facility], Phone: [phone] PERFORMED BY: [place] [address] PATHOLOGIST BLOWER OPERATOR CHRISTOPHER CARTER M.D. Performed By: #### H CV RX PCR, HBV PCR, SMAB, HAABT, ALPHA PHEN, HBCAB, HBSAG, MITOM2, CERULOP, HBS AB QUANT, HBSAB, SIGIFREDO, IGG, HCBIGM, HEMOCHROM, L-K MICRO, HAAB #### [facility] , #### [place], HEPATIC #### [facility] [address] [place] [address] Immunoglobulin Dawit Immunoglobulin G 1279 mg/dL Normal 603-1283 [facility] Comment on above: Order Comment: WILIAM nash is gonna try with ultrasound AB 1751 Result Comment: Perf ormed at: - [facility] [id number] Virology Teacher: Ta Norris PhD, Phone: [phone] Performed By: #### C MP, SCAN CBC #### [address] Liver-Kidney Microsomal Abon 03-02-2023 Liver-Kidney Microsomal Ab 1.2 Normal 0.0-20.[address] [facility] Comment on above: Order Comment: WILIAM nash is gonna try with ultrasound AB 1751 Result Comment: Nega tive 0.0 - 20.0 Equivocal 20.1 - 24.9 Positive >24.9 LKM type 1 antibodies are detected in patients with autoimmune hepatitis type 2 and in up to 8% of patients with chronic HCV infection. Performed at: [address] [id number] Virology Teacher: Ta Norris PhD, Phone: [phone] Performed By: #### C MP, SCAN CBC #### [address] Mitochondrial (M2) Antibodyo n 03-02-2023 Mitochondrial (M2) Antibody <20.0 Normal 0.0-20.[address] [facility] Comment on above: Order Comment: WILIAM nash is gonna try with ultrasound AB 1751 Result Comment: Nega tive 0.0 - 20.0 Equivocal 20.1 - 24.9 Positive >24.9 Mitochondrial (M2) Antibodies are found in 90-96% of patients with primary biliary cirrhosis. Performed By: #### C MP, SCAN CBC #### [place] [address] [place] Smooth Muscle Antibodyon Smooth Muscle Antibody 8 Normal 0-19 [facility] Comment on above: Order Comment: WILIAM nash is gonna try with ultrasound AB 1751 Result Comment: Nega tive 0 - 19 Weak positive 20 - 30 Moderate to strong positive >30 Actin Antibodies are found in 52-85% of patients with autoimmune hepatitis or chronic active hepatitis and in 22% of patients with primary biliary cirrhosis. Performed By: #### C MP, SCAN CBC #### [facility] [address] [place] [address] [place] Alanine aminotransferase [En zymatic activity/volume] in Serum or PlasmaOrdered By: Mckenzie Cherry on 02-16-2023 ALT [Catalytic activity/Vol] 747 U/L [facility] Albumin [Mass/volume] in Ser um or Plasma by Bromocresol green (BCG) dye binding methoOrdered By: Mckenzie Cherry on 02-16-2023 Albumin BCG dye [Mass/Vol] 4.7 g/dL 3.5-5.[address] [facility] Alkaline phosphatase [Enzyma tic activity/volume] in Serum or PlasmaOrdered By: Mckenzie Cherry on 02-16-2023 ALP [Catalytic activity/Vol] 231 U/L 34-[address] [facility] Anisocytosis LM Ql (Bld)Orde red By: Mckenzie Cherry on 02-16-2023 Anisocytosis Ql (Bld) Slight Fir [facility] Aspartate aminotransferase [ Enzymatic activity/volume] in Serum or PlasmaOrdered By: Mckenzie Cherry on 02-16-2023 AST [Catalytic activity/Vol] 301 U/L 13-[address] [facility] Automated erythrocytes count in urine sediment (number/area)Ordered By: Mckenzie Cherry on 02-16-2023 RBC Auto (Urine sed) [#/Area] 0-1 [HPF] 0-[address] [facility] Automated leukocytes count i n urine sediment (number/area)Ordered By: Mckenzie Cherry on 02-16-2023 WBC Auto (Urine sed) [#/Area] 3-4 [HPF] 0-[address] [facility] Basophils Auto (Bld) [#/Vol] Ordered By: Mckenzie Cherry on 02-16-2023 Basophils (Bld) [#/Vol] 0.2 10*3/uL 0.0-0.[address] [facility] Basophils/100 WBC Auto (Bld) Ordered By: Mckenzie Cherry on 02-16-2023 Basophils/100 WBC (Bld) 3.1 % . [facility] Bilirubin Test strip Ql (U)O rdered By: Mckenzie Cherry on 02-16-2023 Bilirubin Ql (U) Negative Negative [facility] Bilirubin.total [Mass/volume ] in Serum or PlasmaOrdered By: Mckenzie Cherry on 02-16-2023 Bilirubin [Mass/Vol] 1.5 mg/dL 0.3-1.0 [facility] Comment on above: Samples from patient s who have taken Naproxen have shown spurious elevation in Total Bilirubin levels. A metabolite of Naproxen, O-desmethylnaproxen, has been shown to interfere with the Juan-Elvia method for measuring Total Bilirubin. Calcium [Mass/volume] in Ser um or PlasmaOrdered By: Mckenzie Cherry on 02-16-2023 Calcium [Mass/Vol] 9.7 mg/dL 8.6-10.3 [facility] Carbon dioxide, total [Moles /volume] in Serum or PlasmaOrdered By: Mckenzie Cherry on 02-16-2023 CO2 [Moles/Vol] 28.3 mmol/L 21.0-31.0 [facility] Chloride [Moles/volume] in S pilar or PlasmaOrdered By: Mceknzie Cherry on 02-16-2023 Chloride [Moles/Vol] 100 mmol/L 98-107 [facility] Color Auto (U)Ordered By: Alisa Cherry on 02-16-2023 Color (U) Yellow Yellow [facility] Comprehensive Metabolic Pane haroldo 02-16-2023 Albumin [Mass/Vol] 4.7 g/dL Normal 3.5-5.7 [facility] Comment on above: Performed By: #### C MP, SCAN CBC #### [facility] [address] Albumin/Globulin [Mass ratio] 1.2 {ratio} Normal [facility] Comment on above: Performed By: #### C MP, SCAN CBC #### [facility] [address] [place] [id number] [place] ALP [Catalytic activity/Vol] 231 U/L High 34-[address] [facility] Comment on above: Performed By: #### C MP, SCAN CBC #### [facility] [address] [place] [address] [place] ALT [Catalytic activity/Vol] 747 U/L High 7-[address] [facility] Comment on above: Performed By: #### C MP, SCAN CBC #### [facility] [address] [place] [address] [facility] Anion gap [Moles/Vol] 12.4 mmol/L Normal 6.0-15.0 [facility] Comment on above: Performed By: #### C MP, SCAN CBC #### [facility] [address] [place] [address] [place] AST [Catalytic activity/Vol] 301 U/L High 13-[address] [facility] Comment on above: Performed By: #### C MP, SCAN CBC #### [facility] [address] [place] [address] [place] Bilirubin [Mass/Vol] 1.5 mg/dL High 0.3-1.0 [facility] Comment on above: Result Comment: Samp les from patients who have taken Naproxen have shown spurious elevation in Total Bilirubin levels. A metabolite of Naproxen, O-desmethylnaproxen, has been shown to interfere with the Jendrusamaik-Grof method for measuring Total Bilirubin. Performed By: #### C MP, SCAN CBC #### [facility] [address] Calcium [Mass/Vol] 9.7 mg/dL Normal 8.6-10.3 [facility] Comment on above: Performed By: #### C MP, SCAN CBC #### [facility] [address] [place] [address] [place] Chloride [Moles/Vol] 100 mmol/L Normal 98-107 [facility] Comment on above: Performed By: #### C MP, SCAN CBC #### [facility] [address] CO2 [Moles/Vol] 28.3 mmol/L Normal 21.0-31.0 [facility] Comment on above: Performed By: #### C MP, SCAN CBC #### [facility] [address] [place] [address] [place] Creatinine [Mass/Vol] 0.73 mg/dL Normal 0.70-1.30 [facility] Comment on above: Performed By: #### C MP, SCAN CBC #### [facility] [address] [place] [address] [place] Creatinine Clr Calc Pharmacy 125.[address] [facility] Comment on above: Result Comment: PERF ORMED BY: [facility] [address] [place] [address] PATHOLOGIST BLOWER OPERATOR CHRISTOPHER CARTER M.D. Performed By: #### C MP, SCAN CBC #### [facility] [address] [place] [address] [place] GFR/1.73 sq M.predicted MDRD (S/P/Bld) [Vol rate/Area] mL/min/{1.73_m2} Normal [facility] Comment on above: Performed By: #### C MP, SCAN CBC #### [facility] [address] [place] [address] [place] Globulin (S) [Mass/Vol] 3.9 g/dL Normal [facility] Comment on above: Performed By: #### C MP, SCAN CBC #### [address] Glucose [Mass/Vol] 89 mg/dL Normal 70-100 [facility] Comment on above: Result Comment: [facility] Glucose Reference Range is dependent on time and content of last meal. Glucose of more than 200 mg/dL in a nonstressed, ambulatory subject supports the diagnosis of Diabetes Mellitus. ADA recommended reference range Performed By: #### C MP, SCAN CBC #### [facility] [address] [place] [address] [place] Potassium [Moles/Vol] 4.7 mmol/L Normal 3.5-5.1 [facility] Comment on above: Performed By: #### C MP, SCAN CBC #### [facility] [address] [place] [address] [place] Protein [Mass/Vol] 8.6 g/dL Normal 6.4-8.9 [facility] Comment on above: Performed By: #### C MP, SCAN CBC #### [facility] [address] [place] [address] [place] Sodium [Moles/Vol] 136 mmol/L Normal 136-145 [facility] Comment on above: Performed By: #### C MP, SCAN CBC #### [facility] [address] [place] [address] [place] Urea nitrogen [Mass/Vol] 16 mg/dL Normal 7-[address] [facility] Comment on above: Performed By: #### C MP, SCAN CBC #### [facility] [address] Creatinine [Mass/volume] in Serum or PlasmaOrdered By: Mckenzie Cherry on 02-16-2023 Creatinine [Mass/Vol] 0.73 mg/dL 0.70-1.30 [facility] Dipstick and Microscopicon 1 04-19-2022 Appearance (U) Clear Normal Clear [facility] Comment on above: Order Comment: Reaso n for Exam Elevated liver enzymes Performed By: #### H CV RX PCR, HBV PCR, SMAB, HAABT, ALPHA PHEN, HBCAB, HBSAG, MITOM2, CERULOP, HBS AB QUANT, HBSAB, SIGIFREDO, IGG, HCBIGM, HEMOCHROM, L-K MICRO, HAAB #### [facility] , #### [place], HEPATIC #### [facility] [address] [place] [address] Bacteria,Urine None Seen Normal None Seen [facility] Comment on above: Order Comment: Reaso n for Exam Elevated liver enzymes Performed By: #### H CV RX PCR, HBV PCR, SMAB, HAABT, ALPHA PHEN, HBCAB, HBSAG, MITOM2, CERULOP, HBS AB QUANT, HBSAB, SIGIFREDO, IGG, HCBIGM, HEMOCHROM, L-K MICRO, HAAB #### [facility] , #### [place], HEPATIC #### [facility] [address] [place] [address] [place] Bilirubin,Urine Negative Normal Negative [facility] Comment on above: Order Comment: Reaso n for Exam Elevated liver enzymes Performed By: #### H CV RX PCR, HBV PCR, SMAB, HAABT, ALPHA PHEN, HBCAB, HBSAG, MITOM2, CERULOP, HBS AB QUANT, HBSAB, SIGIFREDO, IGG, HCBIGM, HEMOCHROM, L-K MICRO, HAAB #### [facility] , #### [place], HEPATIC #### [facility] [address] Color (U) Yellow Normal Yellow [facility] Comment on above: Order Comment: Reaso n for Exam Elevated liver enzymes Performed By: #### H CV RX PCR, HBV PCR, SMAB, HAABT, ALPHA PHEN, HBCAB, HBSAG, MITOM2, CERULOP, HBS AB QUANT, HBSAB, SIGIFREDO, IGG, HCBIGM, HEMOCHROM, L-K MICRO, HAAB #### [facility] , #### [place], HEPATIC #### [facility] [address] Glucose Ql (U) Normal Normal Normal [facility] Comment on above: Order Comment: Reaso n for Exam Elevated liver enzymes Performed By: #### H CV RX PCR, HBV PCR, SMAB, HAABT, ALPHA PHEN, HBCAB, HBSAG, MITOM2, CERULOP, HBS AB QUANT, HBSAB, SIGIFREDO, IGG, HCBIGM, HEMOCHROM, L-K MICRO, HAAB #### [facility] , #### [place], HEPATIC #### [facility] [address] [place] [address] Hyaline Casts,Urine None Seen Normal 0-8 [facility] Comment on above: Order Comment: Reaso n for Exam Elevated liver enzymes Result Comment: PERF ORMED BY: [place] [address] PATHOLOGIST BLOWER OPERATOR CHRISTOPHER CARTER M.D. Performed By: #### H CV RX PCR, HBV PCR, SMAB, HAABT, ALPHA PHEN, HBCAB, HBSAG, MITOM2, CERULOP, HBS AB QUANT, HBSAB, SIGIFREDO, IGG, HCBIGM, HEMOCHROM, L-K MICRO, HAAB #### [facility] , #### [place], HEPATIC #### [facility] [address] Ketones Ql (U) Negative Normal Negative [facility] Comment on above: Order Comment: Reaso n for Exam Elevated liver enzymes Performed By: #### H CV RX PCR, HBV PCR, SMAB, HAABT, ALPHA PHEN, HBCAB, HBSAG, MITOM2, CERULOP, HBS AB QUANT, HBSAB, SIGIFREDO, IGG, HCBIGM, HEMOCHROM, L-K MICRO, HAAB #### [facility] , #### [place], HEPATIC #### [address] Leukocyte esterase Test strip Ql (U) 1+ High Negative [facility] Comment on above: Order Comment: Reaso n for Exam Elevated liver enzymes Performed By: #### H CV RX PCR, HBV PCR, SMAB, HAABT, ALPHA PHEN, HBCAB, HBSAG, MITOM2, CERULOP, HBS AB QUANT, HBSAB, SIGIFREDO, IGG, HCBIGM, HEMOCHROM, L-K MICRO, HAAB #### [facility] , #### [place], HEPATIC #### [address] Nitrite,Urine Negative Normal Negative [facility] Comment on above: Order Comment: Reaso n for Exam Elevated liver enzymes Performed By: #### H CV RX PCR, HBV PCR, SMAB, HAABT, ALPHA PHEN, HBCAB, HBSAG, MITOM2, CERULOP, HBS AB QUANT, HBSAB, SIGIFREDO, IGG, HCBIGM, HEMOCHROM, L-K MICRO, HAAB #### [facility] , #### [place], HEPATIC #### [address] Occult Blood,Urine Negative Normal Negative [facility] Comment on above: Order Comment: Reaso n for Exam Elevated liver enzymes Result Comment: PERF ORMED BY: [place] [address] PATHOLOGIST BLOWER OPERATOR CHRISTOPHER CARTER M.D. Performed By: #### H CV RX PCR, HBV PCR, SMAB, HAABT, ALPHA PHEN, HBCAB, HBSAG, MITOM2, CERULOP, HBS AB QUANT, HBSAB, SIGIFREDO, IGG, HCBIGM, HEMOCHROM, L-K MICRO, HAAB #### [facility] , #### [place], HEPATIC #### [facility] [address] pH (U) 7.5 [pH] Normal 5.0-9.[address] [facility] Comment on above: Order Comment: Reaso n for Exam Elevated liver enzymes Performed By: #### H CV RX PCR, HBV PCR, SMAB, HAABT, ALPHA PHEN, HBCAB, HBSAG, MITOM2, CERULOP, HBS AB QUANT, HBSAB, SIGIFREDO, IGG, HCBIGM, HEMOCHROM, L-K MICRO, HAAB #### [facility] , #### [place], HEPATIC #### [facility] [address] [place] [address] Protein,Urine Negative Normal Negative [facility] Comment on above: Order Comment: Reaso n for Exam Elevated liver enzymes Performed By: #### H CV RX PCR, HBV PCR, SMAB, HAABT, ALPHA PHEN, HBCAB, HBSAG, MITOM2, CERULOP, HBS AB QUANT, HBSAB, SIGIFREDO, IGG, HCBIGM, HEMOCHROM, L-K MICRO, HAAB #### [facility] , #### [place], HEPATIC #### [facility] [address] [place] [address] RBC LM.HPF (Urine sed) [#/Area] 0 /[HPF] Normal 0-[address] [facility] Comment on above: Order Comment: Reaso n for Exam Elevated liver enzymes Performed By: #### H CV RX PCR, HBV PCR, SMAB, HAABT, ALPHA PHEN, HBCAB, HBSAG, MITOM2, CERULOP, HBS AB QUANT, HBSAB, SIGIFREDO, IGG, HCBIGM, HEMOCHROM, L-K MICRO, HAAB #### [facility] , #### [place], HEPATIC #### [facility] [address] [place] [address] Specificy [place],Urine 1.017 Normal 1.001-1.[address] [facility] Comment on above: Order Comment: Reaso n for Exam Elevated liver enzymes Performed By: #### H CV RX PCR, HBV PCR, SMAB, HAABT, ALPHA PHEN, HBCAB, HBSAG, MITOM2, CERULOP, HBS AB QUANT, HBSAB, SIGIFREDO, IGG, HCBIGM, HEMOCHROM, L-K MICRO, HAAB #### [facility] , #### [place], HEPATIC #### [address] Squamous Epithelial Cell,Urine 0-1 Normal 0-[address] [facility] Comment on above: Order Comment: Reaso n for Exam Elevated liver enzymes Performed By: #### H CV RX PCR, HBV PCR, SMAB, HAABT, ALPHA PHEN, HBCAB, HBSAG, MITOM2, CERULOP, HBS AB QUANT, HBSAB, SIGIFREDO, IGG, HCBIGM, HEMOCHROM, L-K MICRO, HAAB #### [facility] , #### [place], HEPATIC #### [address] Urobilinogen,Urine Normal Normal Normal [facility] Comment on above: Order Comment: Reaso n for Exam Elevated liver enzymes Performed By: #### H CV RX PCR, HBV PCR, SMAB, HAABT, ALPHA PHEN, HBCAB, HBSAG, MITOM2, CERULOP, HBS AB QUANT, HBSAB, SIGIFREDO, IGG, HCBIGM, HEMOCHROM, L-K MICRO, HAAB #### [facility] , #### [place], HEPATIC #### [address] WBC,Urine 3-4 Normal 0-[address] [facility] Comment on above: Order Comment: Reaso n for Exam Elevated liver enzymes Performed By: #### H CV RX PCR, HBV PCR, SMAB, HAABT, ALPHA PHEN, HBCAB, HBSAG, MITOM2, CERULOP, HBS AB QUANT, HBSAB, SIGIFREDO, IGG, HCBIGM, HEMOCHROM, L-K MICRO, HAAB #### [facility] , #### [place], HEPATIC #### [address] Eosinophils Auto (Bld) [#/Vo l]Ordered By: Mckenzie Cherry on 02-16-2023 Eosinophils (Bld) [#/Vol] 0.1 10*3/uL 0.0-0.[address] [facility] Eosinophils/100 WBC Auto (Bl d)Ordered By: Mckenzie Cherry on 02-16-2023 Eosinophils/100 WBC (Bld) 1.5 % . [facility] Erythrocyte distribution wid th Auto (RBC) [Ratio]Ordered By: Mckenzie Cherry on 02-16-2023 Erythrocyte distribution width (RBC) [Ratio] 15.7 % 12.0-14.[address] [facility] Globulin Calc (S) [Mass/Vol] Ordered By: Mckenzie Cherry on 02-16-2023 Globulin (S) [Mass/Vol] 3.9 g/dL [facility] Glucose [Mass/volume] in Ser um or PlasmaOrdered By: Mckenzie Cherry on 02-16-2023 Glucose [Mass/Vol] 89 mg/dL 70-100 [facility] Comment on above: ADA recommended refe rence rangeRandom Glucose Reference Range is dependent on time and content of last meal. Glucose of more than 200 mg/dL in a nonstressed, ambulatory subject supports the diagnosis of Diabetes Mellitus. Hematocrit Auto (Bld) [Volum e fraction]Ordered By: Mckenzie Cherry on 02-16-2023 Hematocrit (Bld) [Volume fraction] 45.5 % 38.8-50.[address] [facility] Hemoglobin [Mass/volume] in BloodOrdered By: Mckenzie Cherry on 02-16-2023 Hemoglobin (Bld) [Mass/Vol] 14.9 g/dL 13.0-17.[address] [facility] Ketones Auto test strip (U) [Mass/Vol]Ordered By: Mckenzie Cherry on 02-16-2023 Ketones (U) [Mass/Vol] Negative Negative [facility] - UrinalysisOrder ed By: Mckenzie Cherry on 02-16-2023 Hyaline casts LM Ql (Urine sed) None seen [LPF] 0-[address] [facility] Leukocytes [#/volume] correc paul for nucleated erythrocytes in Blood by Automated counOrdered By: Mckenzie Cherry on 02-16-2023 WBC corrected for nucl RBC Auto (Bld) [#/Vol] 7.9 10*3/uL 4.1-10.[address] [facility] Lymphocytes Auto (Bld) [#/Vo l]Ordered By: Mckenzie Cherry on 02-16-2023 Lymphocytes (Bld) [#/Vol] 2.6 10*3/uL 1.00-4.[address] [facility] Lymphocytes/100 WBC Auto (Bl d)Ordered By: Mckenzie Cherry on 02-16-2023 Lymphocytes/100 WBC (Bld) 33.3 % . [facility] MCH Auto (RBC) [Entitic mass ]Ordered By: Mckenzie Cherry on 02-16-2023 MCH (RBC) [Entitic mass] 27.2 pg 27.5-35.[address] [facility] MCHC Auto (RBC) [Mass/Vol]Or dered By: Mckenzie Cherry on 02-16-2023 MCHC (RBC) [Mass/Vol] 32.8 g/dL 32.5-35.6 [facility] MCV Auto (RBC) [Entitic vol] Ordered By: Mckenzie Cherry on 02-16-2023 MCV (RBC) [Entitic vol] 82.9 fL 83.5-101 [facility] Monocyte distribution width [Entitic volume] in Blood by AutomatedOrdered By: Mckenzie Cherry on 02-16-2023 Monocyte distribution width Auto (Bld) [Entitic vol] 19.77 % 0.00-20.[address] [facility] Comment on above: For adults in ED, MD W > 20.0 may be associated with a higher risk of sepsis during the first 12 hrs of hospital admission Monocytes Auto (Bld) [#/Vol] Ordered By: Mckenzie Cherry on 02-16-2023 Monocytes (Bld) [#/Vol] 0.3 10*3/uL 0.0-0.[address] [facility] Monocytes/100 WBC Auto (Bld) Ordered By: Mckenzie Cherry on 02-16-2023 Monocytes/100 WBC (Bld) 4.1 % . [facility] Neutrophils Auto (Bld) [#/Vo l]Ordered By: Mckenzie Cherry on 02-16-2023 Neutrophils (Bld) [#/Vol] 4.6 10*3/uL 1.8-7.[address] [facility] Neutrophils/100 WBC Auto (Bl d)Ordered By: Mckenzie Cherry on 02-16-2023 Neutrophils/100 WBC (Bld) 58.0 % . [facility] Nitrite Test strip Ql (U)Ord ered By: Mckenzie Cherry on 02-16-2023 Nitrite Ql (U) Negative Negative [facility] No Panel InformationOrdered By: Mckenzie Cherry on 02-16-2023 Estimated GFR (CKD-EPI) > 60.0 mL/Min [facility] Creatinine Clearance (Chem 125.[address] [facility] Nucleated erythrocytes [Pres ence] in Blood by Automated countOrdered By: Mckenzie Cherry on 02-16-2023 Nucleated RBC Auto Ql (Bld) 0.5 /100{WBC} 0-0.[address] [facility] Platelet adequacy [Presence] in Blood by Light microscopyOrdered By: Mckenzie Cherry on 02-16-2023 Platelets LM Ql (Bld) Normal Normal [facility] Platelet mean volume Auto (B ld) [Entitic vol]Ordered By: Mckenzie Cherry on 02-16-2023 Platelet mean volume (Bld) [Entitic vol] 9.3 fL 6.6-10.[address] [facility] Platelet morphology finding [Identifier] in BloodOrdered By: Mckenzie Cherry on 02-16-2023 Platelet morphology finding Nom (Bld) Normal Normal [facility] Platelets Auto (Bld) [#/Vol] Ordered By: Mckenzie Cherry on 02-16-2023 Platelets (Bld) [#/Vol] 310 10*3/uL 150-[address] [facility] Potassium [Moles/volume] in Serum or PlasmaOrdered By: Mckenzie Cherry on 02-16-2023 Potassium [Moles/Vol] 4.7 mmol/L 3.5-5.1 [facility] Protein Auto test strip (U) [Mass/Vol]Ordered By: Mckenzie Cherry on 02-16-2023 Protein (U) [Mass/Vol] Negative Negative [facility] Protein [Mass/volume] in Ser um or PlasmaOrdered By: Mckenzie Cherry on 02-16-2023 Protein [Mass/Vol] 8.6 g/dL 6.4-8.9 [facility] RBC Auto (Bld) [#/Vol]Ordere d By: Mckenzie Cherry on 02-16-2023 RBC (Bld) [#/Vol] 5.49 10*6/uL 3.90-5.60 [facility] RBC morphologyOrdered By: Co raj Cherry on 02-16-2023 RBC morphology finding Nom (Bld) N/A [facility] Red blood cell stomatocyte d etectionOrdered By: Mckenzie Cherry on 02-16-2023 Stomatocytes LM Ql (Bld) Slight [facility] Scan and CBCon 02-16-2023 Anisocytosis Ql (Bld) Slight Normal [facility] Comment on above: Order Comment: WILIAM Paulina conden is gonna try with ultrasound AB 1751 Performed By: #### C MP, SCAN CBC #### [facility] [address] [place] [address] [place] Basophils (Bld) [#/Vol] 0.2 10*3/uL Normal 0.0-0.[address] [facility] Comment on above: Order Comment: RN Paulina conden is gonna try with ultrasound AB 1751 Performed By: #### C MP, SCAN CBC #### [facility] [address] [place] [id number] [place] Basophils/100 WBC (Bld) 3.1 % Normal . [facility] Comment on above: Order Comment: RN Paulina conden is gonna try with ultrasound AB 1751 Performed By: #### C MP, SCAN CBC #### [facility] [address] [place] [id number] [place] Eosinophils (Bld) [#/Vol] 0.1 10*3/uL Normal 0.0-0.[address] [facility] Comment on above: Order Comment: WILIAM Paulina conden is gonna try with ultrasound AB 1751 Performed By: #### C MP, SCAN CBC #### [facility] [address] [place] [address] [place] Eosinophils/100 WBC (Bld) 1.5 % Normal . [facility] Comment on above: Order Comment: WILIAM nash is gonna try with ultrasound AB 1751 Performed By: #### C MP, SCAN CBC #### [facility] [address] Erythrocyte distribution width (RBC) [Ratio] 15.7 % High 12.0-14.[address] [facility] Comment on above: Order Comment: WILIAM nash is gonna try with ultrasound AB 1751 Performed By: #### C MP, SCAN CBC #### [facility] [address] Hematocrit (Bld) [Volume fraction] 45.5 % Normal 38.8-50.[address] [facility] Comment on above: Order Comment: WILIAM nash is gonna try with ultrasound AB 1751 Performed By: #### C MP, SCAN CBC #### [facility] [address] Hemoglobin (Bld) [Mass/Vol] 14.9 g/dL Normal 13.0-17.[address] [facility] Comment on above: Order Comment: WILIAM nash is gonna try with ultrasound AB 1751 Performed By: #### C MP, SCAN CBC #### [facility] [address] [place] [address] [place] Lymphocytes (Bld) [#/Vol] 2.6 10*3/uL Normal 1.00-4.[address] [facility] Comment on above: Order Comment: WILIAM nash is gonna try with ultrasound AB 1751 Performed By: #### C MP, SCAN CBC #### [facility] [address] [place] [id number] [place] Lymphocytes/100 WBC (Bld) 33.3 % Normal . [facility] Comment on above: Order Comment: WILIAM nash is gonna try with ultrasound AB 1751 Performed By: #### C MP, SCAN CBC #### [facility] [address] [place] [id number] [place] MCH (RBC) [Entitic mass] 27.2 pg Low 27.5-35.[address] [facility] Comment on above: Order Comment: RN Paulina conden is gonna try with ultrasound AB 1751 Performed By: #### C MP, SCAN CBC #### [facility] [address] [place] [address] [place] MCV (RBC) [Entitic vol] 82.9 fL Low 83.5-101 [facility] Comment on above: Order Comment: RN Paulina conden is gonna try with ultrasound AB 1751 Performed By: #### C MP, SCAN CBC #### [facility] [address] [place] [address] [place] Mean Corpuscular HGB Conc 32.8 g/dL Normal 32.5-35.[address] [facility] Comment on above: Order Comment: RN Paulina conden is gonna try with ultrasound AB 1751 Performed By: #### C MP, SCAN CBC #### [facility] [address] [place] [address] [place] Monocytes (Bld) [#/Vol] 0.3 10*3/uL Normal 0.0-0.[address] [facility] Comment on above: Order Comment: RN Paulina conden is gonna try with ultrasound AB 1751 Performed By: #### C MP, SCAN CBC #### [facility] [address] [place] [address] [place] Monocytes/100 WBC (Bld) 19.77 % Normal 0.00-20.00 [facility] Comment on above: Order Comment: RN Paulina conden is gonna try with ultrasound AB 1751 Result Comment: For adults in ED, MDW > 20.0 may be associated with a higher risk of sepsis during the first 12 hrs of hospital admission Performed By: #### C MP, SCAN CBC #### [facility] [address] [place] [id number] [place] Monocytes/100 WBC (Bld) 4.1 % Normal . [facility] Comment on above: Order Comment: RN Paulina conden is gonna try with ultrasound AB 1751 Performed By: #### C MP, SCAN CBC #### [facility] [address] [place] [address] [place] Neutrophils (Bld) [#/Vol] 4.6 10*3/uL Normal 1.8-7.[address] [facility] Comment on above: Order Comment: RN Paulina nash is gonna try with ultrasound AB 1751 Performed By: #### C MP, SCAN CBC #### [facility] [address] [place] [address] [place] Neutrophils/100 WBC (Bld) 58.0 % Normal . [facility] Comment on above: Order Comment: RN Paulina conden is gonna try with ultrasound AB 1751 Performed By: #### C MP, SCAN CBC #### [facility] [address] [place] [address] [place] NRBC% 0.5 /100{WBC} Normal 0-0.[address] [facility] Comment on above: Order Comment: RN Paulina nash is gonna try with ultrasound AB 1751 Performed By: #### C MP, SCAN CBC #### [facility] [address] [place] [address] Platelet Estimate Normal Normal Normal [facility] Comment on above: Order Comment: RN Paulina nash is gonna try with ultrasound AB 1751 Performed By: #### C MP, SCAN CBC #### [facility] [address] [place] [address] [place] Platelet mean volume (Bld) [Entitic vol] 9.3 fL Normal 6.6-10.[address] [facility] Comment on above: Order Comment: RN Paulina nash is gonna try with ultrasound AB 1751 Performed By: #### C MP, SCAN CBC #### [facility] [address] [place] [address] [place] Platelet Morphology Normal Normal Normal [facility] Comment on above: Order Comment: RN Paulina nash is gonna try with ultrasound AB 1751 Result Comment: PERF ORMED BY: [place] [address] PATHOLOGIST BLOWER OPERATOR CHRISTOPHER CARTER M.D. Performed By: #### C MP, SCAN CBC #### [facility] [address] [place] [address] [place] Platelets (Bld) [#/Vol] 310 10*3/uL Normal 150-[address] [facility] Comment on above: Order Comment: RN Paulina nash is gonna try with ultrasound AB 1751 Performed By: #### C MP, SCAN CBC #### [facility] [address] [place] [address] [place] RBC (Bld) [#/Vol] 5.49 10*6/uL Normal 3.90-5.60 [facility] Comment on above: Order Comment: RN Paulina nash is gonna try with ultrasound AB 1751 Performed By: #### C MP, SCAN CBC #### [facility] [address] [place] [address] [place] Stomatocytes Slight Normal [facility] Comment on above: Order Comment: RN Paulina nash is gonna try with ultrasound AB 1751 Performed By: #### C MP, SCAN CBC #### [facility] [address] [place] [address] [place] WBC (Bld) [#/Vol] 7.9 10*3/uL Normal 4.1-10.5 [facility] Comment on above: Order Comment: RN Paulina nash is gonna try with ultrasound AB 1751 Performed By: #### C MP, SCAN CBC #### [facility] [address] Serum or plasma albumin/glob ulin mass ratioOrdered By: Mckenzie Cherry on 02-16-2023 Albumin/Globulin [Mass ratio] 1.2 {ratio} [facility] Serum or plasma anion gap de terminationOrdered By: Mckenzie Cherry on 02-16-2023 Anion gap [Moles/Vol] 12.4 mmol/L 6.0-15.0 [facility] Sodium [Moles/volume] in Ser um or PlasmaOrdered By: Mckenzie Cherry on 02-16-2023 Sodium [Moles/Vol] 136 mmol/L 136-145 [facility] Specific gravity Auto test s trip (U) [Rel density]Ordered By: Mckenzie Cherry on 02-16-2023 Specific gravity (U) [Rel density] 1.017 1.001-1.[address] [facility] Squamous epithelial cells de tection in urine sediment by light microscopyOrdered By: Mckenzie Cherry on 02-16-2023 Epithelial cells.squamous LM Ql (Urine sed) 0-1 [HPF] 0-[address] [facility] Urea nitrogen [Mass/volume] in Serum or PlasmaOrdered By: Mckenzie Cherry on 02-16-2023 Urea nitrogen [Mass/Vol] 16 mg/dL 7-[address] [facility] Urine bacteria detection by automated methodOrdered By: Mckenzie Cherry on 02-16-2023 Bacteria Auto Ql (U) None seen None Seen [facility] Urine clarity by refractomet ry automatedOrdered By: Mckenzie Cherry on 02-16-2023 Clarity Refractometry automated (U) Clear Clear [facility] Urine glucose measurement by automated test strip (mass/volume)Ordered By: Mckenzie Cherry on 02-16-2023 Glucose Auto test strip (U) [Mass/Vol] Normal mg/dL Normal [facility] Urine hemoglobin detection b y automated test stripOrdered By: Mckenzie Cherry on 02-16-2023 Hemoglobin Auto test strip Ql (U) Negative Negative [facility] Urine leukocyte esterase det ection by automated test stripOrdered By: Mckenzie Cherry on 02-16-2023 Leukocyte esterase Auto test strip Ql (U) 1+ Negative [facility] Urobilinogen Auto test strip (U) [Mass/Vol]Ordered By: Mckenzie Cherry on 02-16-2023 Urobilinogen (U) [Mass/Vol] Normal mg/dL Normal [facility] WBC Auto (Bld) [#/Vol]Ordere d By: Mckenzie Cherry on 02-16-2023 WBC (Bld) [#/Vol] 7.9 10*3/uL 4.1-10.5 [facility] pH Auto test strip (U)Ordere d By: Mckenzie Cherry on 02-16-2023 pH (U) 7.5 [pH] 5.0-9.[address] [facility] ECG 12 lead ECGon 05-11-2022 ECG 12 lead ECG [facility] [place] [address] Electrocardiograph Report Signed Patient: Ness Beaver MR#: [id number] : 1980 Acct:[id number] Age/Sex: 42 / M ADM Date: 05/11/22 Loc: Room: Type: [facility] Attending Dr: Meera Sullivan MD Ordering Provider: [...] ECG No previous ECGs available Confirmed by BRIAN CARRERA DO ([id number]) on 05/11/2022 1:23:43 PM Referred By: Star SULLIVAN Electronically Signed By:BRIAN CARRERA DO Transcribed By: MUS Signed By Brian Carrera DO 05/[address] [facility] CBC W/DIFFon 10-24-2020 ABS IMM GRANS 0.0 10*3/uL Normal 0.0-0.2 [facility] Comment on above: Performed By: #### 5 0103 #### [facility] [address] ABS NEUTROPHILS 2.7 10*3/uL Normal 1.6-7.6 [facility] Comment on above: Performed By: #### 5 0103 #### [facility] [address] [place] [address], [facility] Basophils (Bld) [#/Vol] 0.1 10*3/uL Normal 0.0-0.2 [facility] Comment on above: Performed By: #### 5 0103 #### [facility] [address] Basophils/100 WBC (Bld) 1.0 % Normal 0.0-1.0 [facility] Comment on above: Performed By: #### 5 0103 #### [facility] [address] [facility] Eosinophils (Bld) [#/Vol] 0.2 10*3/uL Normal 0.0-0.5 [facility] Comment on above: Performed By: #### 5 0103 #### [facility] [address] [facility]. [address] Eosinophils/100 WBC (Bld) 3.1 % Normal 0.0-6.0 [facility] Comment on above: Performed By: #### 102 #### [facility] [address] Erythrocyte distribution width (RBC) [Ratio] 12.7 % Normal 11.5-15.0 [facility] Comment on above: Performed By: #### 102 #### [facility] [address] [facility]. [address] Hematocrit (Bld) [Volume fraction] 42.9 % Normal 39.0-50.0 [facility] Comment on above: Performed By: #### 102 #### [facility] [address] Hemoglobin (Bld) [Mass/Vol] 14.0 g/dL Normal 13.0-17.0 [facility] Comment on above: Performed By: #### 5 3 #### [facility] [address] [facility]. [address] IMMATURE GRANS 0.2 % Normal 0.0-1.0 [facility] Comment on above: Performed By: #### 102 #### [facility] [address] Lymphocytes (Bld) [#/Vol] 2.3 10*3/uL Normal 1.2-4.0 [facility] Comment on above: Performed By: #### 5 0103 #### [facility] [address] [place] [address], [facility] Lymphocytes/100 WBC (Bld) 40.2 % Normal 20.0-45.0 [facility] Comment on above: Performed By: #### 5 0103 #### [facility] [address] [place] [address], [facility] MCH (RBC) [Entitic mass] 28.1 pg Normal 27.0-33.0 [facility] Comment on above: Performed By: #### 102 #### [facility] [address] [facility] [place] [address], [facility] MCHC (RBC) [Mass/Vol] 32.6 g/dL Normal 32.0-35.0 [facility] Comment on above: Performed By: #### 102 #### [facility] [address] [facility] [place] [address], [facility] MCV (RBC) [Entitic vol] 86.0 fL Normal 82.0-98.0 T [facility] Comment on above: Performed By: #### 5 3 #### [facility] [address] [facility] [place] [address], [facility] Monocytes (Bld) [#/Vol] 0.5 10*3/uL Normal 0.1-1.0 [facility] Comment on above: Performed By: #### 5 3 #### [facility] [address] [facility] [place] [address], [facility] MONOS 7.9 % Normal 5.0-12.0 [facility] Comment on above: Performed By: #### 5 3 #### [facility] [address] [facility] [place] [address], [facility] Neutrophils/100 WBC (Bld) 47.6 % Normal 40.0-72.0 [facility] Comment on above: Performed By: #### 5 3 #### [facility] [address] Nucleated RBC/100 WBC (Bld) [Ratio] 0 % Normal 0-0 [facility] Comment on above: Performed By: #### 5 102 #### [facility] [address] [facility] [place] [address], [facility] PLAT CNT 283 10*3/uL Normal 150-400 [facility] Comment on above: Performed By: #### 5 102 #### [facility] [address] [facility] [place] [address], [facility] RBC (Bld) [#/Vol] 4.99 10*6/uL Normal 4.20-5.70 [facility] Comment on above: Performed By: #### 5 102 #### [facility] [address] [place] [address], [facility] WBC (Bld) [#/Vol] 5.72 10*3/uL Normal 4.00-10.60 [facility] Comment on above: Performed By: #### 5 102 #### [facility] [address] [facility] COMP METABOLIC PANELon 10-24 Albumin [Mass/Vol] 4.7 g/dL Normal 3.5-5.7 [facility] Comment on above: Performed By: #### 0 0121 ####[facility] ALKALINE PHOSPH 68 IU/L Normal 34-104 [facility] Comment on above: Performed By: #### 0 0121 ####[facility] ALT [Catalytic activity/Vol] 27 U/L Normal 7-52 [facility] Comment on above: Performed By: #### 0 0121 ####[facility] [place] [address], [place] AST [Catalytic activity/Vol] 35 U/L Normal 13-39 [facility] Comment on above: Performed By: #### 0 0121 ####[facility] [place] [address], [facility] Bilirubin [Mass/Vol] 0.3 mg/dL Normal 0.3-1.0 [facility] Comment on above: Performed By: #### 0 0121 ####[facility] [place] [address], [place] Calcium [Mass/Vol] 9.9 mg/dL Normal 8.6-10.3 [facility] Comment on above: Performed By: #### 0 0121 ####[facility] [place] [address], [place] Chloride [Moles/Vol] 101 mmol/L Normal 98-107 [facility] Comment on above: Performed By: #### 0 0121 ####[facility] [place] [address], [place] CO2 [Moles/Vol] 33 mmol/L High 21-31 [facility] Comment on above: Performed By: #### 0 0121 ####[facility] [place] [address], [place] Creatinine [Mass/Vol] 0.94 mg/dL Normal 0.70-1.30 [facility] Comment on above: Performed By: #### 0 0121 ####[facility] [place] [address], [place] GFR/1.73 sq M.predicted among blacks MDRD (S/P/Bld) [Vol rate/Area] mL/min/{1.73_m2} Normal >60 [facility] Comment on above: Performed By: #### 0 0121 ####[facility] [place] [address], [place] GFR/1.73 sq M.predicted among non-blacks MDRD (S/P/Bld) [Vol rate/Area] mL/min/{1.73_m2} Normal >60 [facility] Comment on above: Performed By: #### 0 0121 ####[facility] [place] [address], [facility] Glucose [Mass/Vol] 91 mg/dL Normal 70-100 [facility] Comment on above: Performed By: #### 0 0121 ####[facility] [place] [address], [facility] Potassium [Moles/Vol] 4.5 mmol/L Normal 3.5-5.1 [facility] Comment on above: Performed By: #### 0 0121 ####[facility] [place] [address], [facility] Protein [Mass/Vol] 7.6 g/dL Normal 6.0-8.3 [facility] Comment on above: Performed By: #### 0 0121 ####[facility] [place] [address], [facility] Sodium [Moles/Vol] 138 mmol/L Normal 136-145 [facility] Comment on above: Performed By: #### 0 0121 ####[facility] [place] [address], [facility] Urea nitrogen [Mass/Vol] 18 mg/dL Normal 7-20 [facility] Comment on above: Performed By: #### 0 0121 ####[facility] [place] [address], [facility] HEP B CORE AB IGM [id number] HEP B CORE IGM Negative Normal Negative [facility] Comment on above: Result Comment: INTE RPRETIVE INFORMATION: Hepatitis B Core Ab, IgM This assay should not be used for blood donor screening, associated re-entry protocols, or for screening Human Cells, Tissues and Cellular and Tissue-Based Products (HCT/P). Performed By: [employer] [address] [place] [address] Pulley Mortiser Operator: Loraine Burger MD HEP B E AB 1 HEP B E AB Positive Abnormal Negative [facility] Comment on above: Result Comment: The [...] one month may be useful. Performed By: [facility] [employer] [address] [place] [address] [employer] Operator: Loraine Burger MD HEP B E AG 1 HEP B E AG Negative Normal Negative [facility] Comment on above: Result Comment: Perf ormed By: [place] [address] [employer] Operator: Loraine Burger MD HEP B VIRUS, QUANT by NAAT 3 [id number] 10-24-2020 HBV QNT BY NAAT 436 IU/mL Normal [facility] HBV QNT NAAT, INTERP Detected Abnormal Not Detected Th e [facility] Comment on above: Result Comment: INTE [...] NAAT, LOG 3 log IU/mL Normal [facility] Comment on above: Result Comment: Perf ormed By: [facility] [employer] [address] [place] [address] [employer]ley [employer] Operator: Loraine Burger MD HEP C GENOTYPE w/RFLX NS5A D RUG RESIS [id number] 10-24-2020 HEP C GENOTYPING Indeterminate Normal [facility] Comment on above: Result Comment: Hepa [...] C Viral RNA is tested using reverse winch truck operator polymerase chain reaction (RT-PCR) to amplify a specific portion of the 5' untranslated region (5' UTR) of the viral genome. The amplified nucleic acid is sequenced bi-directionally using dye-terminator chemistry (Cinsay). Sequencing data is compared to a database [...] developed and its performance characteristics determined by [employer]. It has not been cleared or approved by the US Food and Drug Administration. This test was performed in a CLIA certified laboratory and is intended for clinical purposes. Performed By: [employer] [address] [place] [address] [employer] Operator: Loraine Burger MD HEPATITIS A ABS TOTAL [id number] 10-24-2020 HEP A ABS(TOTAL) Negative Normal Negative [facility] Comment on above: Result Comment: Perf ormed By: [employer] [address] [place] [address] Pulley [employer] Operator: Loraine Burger MD HEPATITIS B CORE ANTIBODYon 10-24-2020 HEP B CORE AB Reactive Abnormal NONREACTIVE [facility] Comment on above: Performed By: #### 3 2183, 97626, 54921, 28882 ####[facility] HEPATITIS B SURFACE ANTIBODY QUANTon 10-24-2020 HEP B SURF AB 0.00 mIU/ml Normal [facility] Comment on above: Result Comment: INTE RPRETATION: NONREACTIVE<8.00 mIU/mL INDETERMINATE8.00 - 12.00 mIU/mL REACTIVE>12 mIU/mL Performed By: #### 3 1423, 22678, 18420, 74389 #### [facility] [address] [facility]. [address] HEPATITIS B SURFACE ANTIGEN QUALon 10-24-2020 HEP B SURF AG QUAL Reactive Abnormal NONREACTIVE [facility] Comment on above: Result Comment: HEPA TITIS B SURFACE ANTIGEN TO BE CONFIRMED Performed By: #### 3 1423, 66173, 09558, 47788 #### [facility] [address] [facility]. [address] HEPATITIS C BY TMAon HCV Not detected Normal [facility] Comment on above: Order Comment: The [employer] HCV Quant Dx assay is a real-time winch truck operator-mediated amplification (TMA) test which has a dynamic [...] products. Performed By: #### 3 1750 #### [facility] [address] HCV TMA INTERPRETATION Not detected Normal [facility] Comment on above: Order Comment: The A ptima HCV Quant Dx assay is a real-time winch truck operator-mediated amplification (TMA) test which has a dynamic [...] products. Performed By: #### 3 1750 #### [facility] [address] [facility] HIV1 AND 2 COMBO 4Gon 2020 HIV COMBO Negative Normal NEGATIVE [facility] Comment on above: Performed By: #### 3 0625 #### [facility] [address] [facility]. [address] LIVER FIBROSIS CHRONIC VIRAL [id number] 10-24-2020 [id number],F IBROMETER 176 mg/dL Normal 131-293 [facility] ALT [Catalytic activity/Vol] 31 U/L Normal 5-50 [facility] Amylase [Catalytic activity/Vol] 12 U/L Normal 7-51 [facility] AST [Catalytic activity/Vol] 42 U/L Normal 9-50 [facility] CIRRHOMETER PATIENT SCORE 0.01 Normal [facility] EER FIBROMETER REPORT See Note Normal [facility] Comment on above: Result Comment: [facility] Enhanced Report using the link below: -Direct access: [email or web address] FIBROMETER INTERPRETATION See Report Normal [facility] Comment on above: Result Comment: [16] [17] INTERPRETIVE INFORMATION: Fibrometer Interpretation Calculations for the final report are based on accurate data for age, gender, and platelet count. If any of this information needs to be corrected, please contact [facility] Client Services to request a recalculation. Client [...] developed and its performance characteristics determined by [employer]. It has not been cleared or approved by the US Food and Drug Administration. This test was performed in a CLIA certified laboratory and is intended for clinical purposes. Performed By: [employer] [address] [place] [address] Pulley Mort[employer] Operator: Loraine Burger MD FIBROMETER PLATELET CT 283 k/uL Normal Th [facility] FIBROMETER PLATELET IND 87 % Low 90-120 T [facility] FIBROMETER PLATELET SCORE 0.26 Normal [facility] FIBROSIS METAVIR CLASSIFICATION F1[F1-F2] Normal [facility] Comment on above: Result Comment: INTE [...] is possible INFLAMETER METAVIR CLASSIFICATION A0/A1 Normal [facility] [facility] Comment on above: Result Comment: INTE RPRETIVE INFORMATION: InflaMeter Metavir Classification [employer]aMeter (activity score) comments A0/A1 Equal probability between A0 and A1 A1/A2 Equal probability between A1 and A2 A2/A3 Equal probability between A2 and A3 INFLAMETER PATIENT SCORE 0.25 Normal [facility] PROTHROMBIN TIMEon 1 INR Coag (PPP) [Relative time] 1.02 {INR} Normal 0.91-1.16 [facility] Comment on above: Order Comment: Jessica [...] CHEST 1995;108:231S-246S. Performed By: #### 5 6101 ####[facility] [facility] PT Coag (PPP) [Time] 13.4 s Normal 12.3-14.8 [facility] Comment on above: Order Comment: Jessica julio drawn PT/INR Result Comment: ALL RESULTS MUST BE INTERPRETED WITH RESPECT TO BLOOD DRAWING ARTIFACT OR DILUTION ERROR OF ANTICOAGULANT AT THE TIME OF SAMPLING. Performed By: #### 5 6101 ####[facility] [place] [address], [facility] hep b surf ag confirmon 08-2 HEP B SURF AG QUAL INTERP CONFIRMED Normal [facility] Comment on above: Performed By: #### 3 0733, 02083, 38314, 55442 ####[facility] [place] [address], [facility] Vital Signs Date Time Vital Sign Value Performing Clinician Facility 07-28-2023 07:01-0400 Body temperature 97.9 [degF] Hany Fuentes MD Work Phone: [facility] 07-28-2023 07:01-0400 Diastolic blood pressure 79 mm[Hg] Hany Fuentes MD Work Phone: [facility] 07-28-2023 07:01-0400 Heart rate 75 /min Hany Fuentes MD Work Phone: [facility] 07-28-2023 07:01-0400 Respiratory rate 18 /min Hany Fuentes MD Work Phone: [facility] 07-28-2023 07:01-0400 SaO2% (BldA) [Mass fraction] 96 % Hany Fuentes MD Work Phone: [facility] 07-28-2023 07:01-0400 Systolic blood pressure 130 mm[Hg] Hany Fuentes MD Work Phone: [facility] [employer] 04-02-2023 11:34-0500 Diastolic blood pressure 67 mm[Hg] [employer] 04-02-2023 11:34-0500 Heart rate 68 /min [facility] [employer] 04-02-2023 11:34-0500 Respiratory rate 16 /min [facility] [employer] 04-02-2023 11:34-0500 SaO2% (BldA) [Mass fraction] 100 % [facility] 04-02-2023 11:34-0500 Systolic blood pressure 121 mm[Hg] [facility] 04-02-2023 09:16-0500 Body temperature 97.11 [degF] [facility] [employer] 04-02-2023 09:16-0500 Body height 172.7 cm [facility] [employer] 04-02-2023 09:16-0500 Body mass index (BMI) [Ratio] 24.33 kg/m2 [facility] [employer] 04-02-2023 09:16-0500 Body weight 72.58 kg [facility] [employer] 03-06-2023 19:17-0500 Body height 172.7 cm [facility] [employer] 03-06-2023 19:17-0500 Body mass index (BMI) [Ratio] 24.33 kg/m2 [facility] [employer] 03-06-2023 19:17-0500 Body temperature 97.81 [degF] [facility] [employer] 03-06-2023 19:17-0500 Body weight 72.58 kg [facility] [employer] 03-06-2023 19:17-0500 Heart rate 78 /min [facility] [employer] 03-06-2023 19:17-0500 Respiratory rate 18 /min [facility] [employer] 03-06-2023 19:17-0500 SaO2% (BldA) [Mass fraction] 98 % [facility] [employer] 03-06-2023 14:50-0500 Diastolic blood pressure 81 mm[Hg] Katie Denia DO Work Phone: [facility] [employer] 03-06-2023 14:50-0500 Heart rate 64 /min Katie Denia DO Work Phone: [facility] [employer] 03-06-2023 14:50-0500 Respiratory rate 16 /min Katie Denia DO Work Phone: [facility] [employer] 03-06-2023 14:50-0500 SaO2% (BldA) [Mass fraction] 97 % Katie Denia DO Work Phone: [facility] [employer] 03-06-2023 14:50-0500 Systolic blood pressure 120 mm[Hg] Katie Denia DO Work Phone: [facility] [employer] 03-06-2023 07:27-0500 Body temperature 97.81 [degF] Katie Denia DO Work Phone: [facility] 03-02-2023 13:00-0500 Body height 172.72 cm Imad Asaad Other [employer] Other 03-02-2023 13:00-0500 Body mass index (BMI) [Ratio] 23.26 kg/m2 Imad Asaad Other [employer] Other 03-02-2023 13:00-0500 Body weight 69.4 kg Imad Asaad Other [employer] Other 03-02-2023 13:00-0500 Diastolic blood pressure 66 mm[Hg] Imad Asaad Other [employer] Other 03-02-2023 13:00-0500 Systolic blood pressure 110 mm[Hg] Imad Asaad Other [employer] Other 02-16-2023 20:05-0500 Body temperature 98.8 [degF] PHYSICIAN NO [facility] 02-16-2023 20:05-0500 Diastolic blood pressure 95 mm[Hg] PHYSICIAN NO [facility] 02-16-2023 20:05-0500 Heart rate 94 /min PHYSICIAN [facility] 02-16-2023 20:05-0500 Respiratory rate 20 /min PHYSICIAN NO [facility] 02-16-2023 20:05-0500 SaO2% (BldA) [Mass fraction] 96 % PHYSICIAN NO [facility] 02-16-2023 20:05-0500 Systolic blood pressure 156 mm[Hg] PHYSICIAN NO [facility] 02-16-2023 14:24-0500 Body height 172.72 cm PHYSICIAN NO [facility] 02-16-2023 14:24-0500 Body weight 67.05 kg PHYSICIAN NO [facility] Encounters Encounter Date Encounter Type Care Provider Facility Start: 07-28-2023 End: 07-28-2023 Emergency department patient visit [facility] Start: 07-28-2023 End: 07-28-2023 Emergency department patient visit Hany Fuentes MD Work Phone: [facility] Comment on above: Lumbar strain, initi al encounter (Primary Dx) Start: 04-02-2023 End: 04-02-2023 Emergency department patient visit [facility] Start: 04-02-2023 End: 04-02-2023 Emergency department patient visit [facility] EMERGENCY DEPT Comment on above: RSV (respiratory syn cytial virus infection) (Primary Dx) Start: 03-06-2023 End: 03-06-2023 Emergency department patient visit [facility] Start: 03-06-2023 End: 03-06-2023 Emergency department patient visit [facility] EMERGENCY DEPT Comment on above: Encounter for monito ring Suboxone maintenance therapy (Primary Dx) Start: 03-06-2023 End: 03-06-2023 Emergency department patient visit KATIE LOZA [facility] Start: 03-06-2023 End: 03-06-2023 Emergency department patient visit Katie Loza DO Work Phone: [facility] Comment on above: History of hepatitis (Primary Dx); Transaminitis; History of opioid abuse (CMS/HCC) (HCC) Start: 03-02-2023 End: 03-02-2023 ambulatory PHYSICIAN NO [facility] [employer] Other Start: 03-02-2023 [facility] visit new patient Imgalindo Weber [facility] Start: 02-16-2023 End: 02-16-2023 Emergency department patient visit PHYSICIAN NO FAMILY Facility:[facility] Start: 02-16-2023 End: 02-16-2023 Emergency department patient visit PHYSICIAN NO [facility] Work Phone: Start: 05-11-2022 End: 05-11-2022 ambulatory PHYSICIAN NO [facility] Facility:[facility] Start: 05-11-2022 End: 05-11-2022 ambulatory PHYSICIAN NO [facility] Work Phone: Start: 05-11-2022 End: 05-11-2022 Patient encounter procedure PHYSICIAN ULYSSES GRANGER [facility] Work Phone: Start: 02-15-2022 End: 02-15-[address] CHINEDU CESAR Facility: Start: 09-15-2021 End: 09-23-2021 ambulatory UNKNOWN PROVIDER Facility:[facility] Procedures Date Procedure Procedure Detail Performing Clinician Start: 04-02-2023 Radiologic exam ches t single view Maribeth Veliz [employer] Work Phone: Start: 04-02-2023 SARS-COV-2, FLU A/B, AND RSV COMBO Maribeth Veliz [employer] Work Phone: Start: 04-02-2023 Urinalysis complete panel - Urine Maribeth Veliz [employer] Work Phone: Start: 04-02-2023 Urnls dip stick/tabl et reagent auto microscopy Maribeth Veliz [employer] Work Phone: Start: 03-06-2023 Hepatic function panel Katie Denia DO Work Phone: Plan of Treatment Date Care Activity Detail Author Start: 2040 RSV Immunization aged 60 or older (1 - 1-dose 60+ series) RSV Immunization aged 60 or older (1 - 1-dose 60+ series) [facility] Start: 2030 Zoster Vaccines (1 of 2) Zoster Vaccines (1 of 2) [facility] Start: 10-31-2023 Influenza vaccination Influenza Vaccine (Season Ended) [facility] Start: 02-16-[address] [facility] Start: 10-30-2022 COVID-19 Vaccine ( season) COVID-19 Vaccine ( season) [facility] Start: 10-30-2022 Influenza vaccination Influenza Vaccine (#1) [facility] Start: 1999 DTaP/Tdap/Td Vaccines (1 - Tdap) DTaP/Tdap/Td Vaccines (1 - Tdap) [facility] Start: 1999 Hepatitis A Vaccines (1 of 2 - Risk 2-dose series) Hepatitis A Vaccines (1 of 2 - Risk 2-dose series) [facility] Start: 1999 Hepatitis B Vaccines (1 of 3 - 19+ 3-dose series) Hepatitis B Vaccines (1 of 3 - 19+ 3-dose series) [facility] Start: 1998 Hepatitis C screening Hepatitis C Screening [facility] Start: 1993 Varicella vaccination Varicella Vaccines (1 of 2 - 13+ 2-dose series) [facility] Start: 1992 Depression Screening Depression Screening [facility] Start: 1981 MMR Vaccines (1 of 1 - Standard series) MMR Vaccines (1 of 1 - Standard series) [facility] Start: 1981 Varicella vaccination Varicella Vaccines (1 of 2 - 2-dose childhood series) [facility] Start: 1980 COVID-19 Vaccine (#1) COVID-19 Vaccine (#1) [facility] Start: 1980 Hepatitis B Vaccines (1 of 3 - 3-dose series) Hepatitis B Vaccines (1 of 3 - 3-dose series) [facility] Start: 1980 HIV screening HIV Screening [facility] Start: 1980 Lipid panel Lipid Panel [facility] Hepatitis A virus antibody, IgM type [facility] Hepatitis B core antibody measurement, IgM type [facility] Hepatitis B virus surface Ag [Presence] in Serum or Plasma by Immunoassay [facility] Hepatitis C virus Ig G Ab [Presence] in Serum or Plasma by Immunoassay [facility] Hepatitis C virus RN A [log units/volume] (viral load) in Serum or Plasma by MONTSERRAT with probe detection [facility] Hepatitis C virus RN A [Units/volume] (viral load) in Serum or Plasma by MONTSERRAT with probe detection [facility] Patient Education Hepatitis Panel [facility] Work Phone: Patient referral [facility] Work Phone: Payers Date Payer Category Payer Medicaid [employer] ODM [id number] 2023-Present [phone] [address] [place] [address] Medicaid HMO [id number] 2023 Medicaid [id number] 2022 Self-pay 2021 Unknown [id number] 1980 Unknown [id number] 1980 Unknown [id number] 1959 Medicaid [id number] Private Health Insurance [facility] [id number] Unknown [id number] Unknown [id number] Unknown [id number] Social History Date Type Detail Facility Tobacco smoking stat us [facility] Unknown if ever smoked [facility] Work Phone: Start: 1980 Sex Assigned At Male [facility] Start: 02-16-2023 End: 03-06-2023 Tobacco smoking status WAIS Never smoked tobacco (finding) 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 Never [facility] How many standard drinks containing alcohol do you have on a typical day? Patient does not drink [facility] Start: 03-06-2023 Gender identity Identifies as male gender (finding) [facility] Start: 03-06-2023 Sexual orientation Heterosexual (fin ding) [facility] Clinical Notes 03-02-2023 to 07-28-2023 Hany Fuentes MD - 07/28/2023 6:58 AM EDTAulices Fuentes MD - 07/28/2023 6:58 AM EDTDischarge InstructionsAttachmentsMaribeth AlonzoTatyana Veliz, [employer] - 04/02/2023 9:08 AM ESTDischarge Instructions Note Date & Type Note Facility 07-28-2023 Emergency departm ent Note EMERGENCY DEPARTMENT ENCOUNTER Pt Name: Ness Beaver Birthdate 1980 Date of evaluation: 07/28/2023 ED Provider: Hany Fuentes MD CHIEF COMPLAINT Chief Complaint Patient presents with Back Pain Back pain worsening over the last 3 days HISTORY OF PRESENT ILLNESS (Location/Symptom, Timing/Onset, Context/Setting, Quality, Duration, Modifying Factors, Severity) Note limiting factors. I wore appropriate PPE for the entirety of this encounter. HPI Ness Beaver is a 43 y.o. who presents to the emergency department with right-sided lumbar back pain worse over the last 3 days, this is a chronic issue for him, he denies any fevers chills or bodyaches, no radiation of pain. Worse with movement. No trauma. Patient denies any loss of bladder or bowel control, saddle anesthesia, radicular symptoms, or fevers. Patient denies any pain in the midline and says that the pain is exacerbated by movement and is located in the paraspinal musculature. Nursing Notes were reviewed. Limitations to history: None Outside historians: None REVIEW OF SYSTEMS Review of Systems Pertinent positives and negatives as per HPI PAST MEDICAL HISTORY Past Medical History: Diagnosis Date Depression PTSD (post-traumatic stress disorder) SURGICAL HISTORY Past Surgical History: Procedure Laterality Date TONSILLECTOMY CURRENT MEDICATIONS Previous Medications BUPRENORPHINE-NALOXONE (SUBOXONE) 8-[address] 1 tablet under the tongue Once. SERTRALINE (ZOLOFT) 100 MG TABLET Take by mouth. ALLERGIES Patient has no known allergies. FAMILY HISTORY No family history on file. SOCIAL HISTORY Social History Socioeconomic History Marital status: Single Tobacco Use Smoking status: Never Substance and Sexual Activity Alcohol use: No Drug use: No Comment: methadone PHYSICAL EXAM ED Triage Vitals Temp Heart Rate Resp BP 07/28/23 0701 07/28/23 0701 07/28/23 0707/28/23700 36.6 C (97.9 F) 75 18 130/79 SpO2 Temp Source Heart Rate Source Patient Position 07/28/23 0707/28/23 0659 07/28/23700 -- 96 % Temporal Monitor BP Location FiO2 (%) -- -- Physical Exam GENERAL: The patient appears nourished and normally developed. Vital signs as documented. EYES: Head exam is unremarkable. No scleral icterus or orbital trauma noted. HEENT: Mucous membranes moist. Nares patent without copious rhinorrhea. No enlarged lymphadenopathy. LUNGS: Lungs are clear to auscultation, without any respiratory distress. CARDIAC: Rhythm is regular. No dysrythmias or murmurs. ABDOMEN: Nontender with no obvious masses, and no peritoneal signs. EXTREMITIES: Nonedematous, with no obvious deformities. SKIN: Good color, with no significant rashes. No pallor. NEURO: No obvious neurological deficits. Patient moves without difficulty. MUSCULO-SKELETAL: Patient has some generalized lower back tenderness to palpation. No localized, midline bony tenderness and no evidence of fracture. Lower extremity motor function is normal. Lower extremity sensation is intact. DTRs are equal and normal bilaterally. Pain is most likely due to soft-tissue pain (muscular and/or ligamentous). DIAGNOSTIC RESULTS RADIOLOGY (Per Emergency Physician): Interpretation per the Radiologist below, if available at the time of this note: No orders to display LABS: Labs Reviewed - No data to display All other labs were within normal range or not returned as of this dictation. EMERGENCY DEPARTMENT COURSE and DIFFERENTIAL DIAGNOSIS/MDM: Vitals: Vitals: 07/28/23 0659 07/28/23700 BP: 130/79 Pulse: 75 Resp: 18 Temp: 36.6 C (97.9 F) TempSrc: Temporal Temporal SpO2: 96% Medications - No data to display SCREENINGS MDM elements: The patient presented with chief complaint of with acute on chronic low back pain without any known trauma. Based on history and physical exam I do not feel that the patient is at high risk for cauda equina syndrome, conus medullaris syndrome, epidural abscess, discitis or vertebral osteomyelitis. The patient was instructed that if they have any worsening symptoms, any numbness or tingling in the genital area, any weakness, or any loss of bladder or bowel control or difficulty urinating the patient return immediately for reevaluation. They voiced understanding.. The differential diagnosis associated with this patient's presentation includes back spasm, back strain, less likely epidural abscess cauda equina syndrome conus medullaris syndrome discitis or vertebral osteomyelitis. Our workup consisted of ordering/reviewing: No need for imaging or labs at this time, there is no spinal tenderness on exam and no red flag symptoms, treated with Flexeril and prednisone. Patient has history of opiate dependence has been sober for 6 months. The patient will be Discharged. Patient is in agreement with this plan. PROCEDURES: Unless otherwise noted below, none Procedures CRITICAL CARE TIME None FINAL IMPRESSION 1. Lumbar strain, initial encounter DISPOSITION Discharge 07/28/2023 07:13:05 AM PATIENT [facility]: [facility] [address] [place] [phone] Schedule an appointment as soon as possible for a visit DISCHARGE MEDICATIONS: New Prescriptions CYCLOBENZAPRINE (FLEXERIL) 10 MG TABLET Take 1 tablet (10 mg) by mouth 2 times daily as needed for muscle spasms for up to 10 days. PREDNISONE (DELTASONE) 20 MG TABLET Take 2 tablets (40 mg) by mouth daily for 4 days. (Comment: Please note this report has been produced using speech recognition software and may contain errors related to that system including errors in grammar, punctuation, and spelling, as well as words and phrases that may be inappropriate. If there are any questions or concerns please feel free to contact the dictating provider for clarification.) Hany Fuentes MD (electronically signed) Emergency Medicine Provider Hany Fuentes MD 07/28/23 0808 documented in this encounter [facility] 07-28-2023 Physician Emergen cy department Note EMERGENCY DEPARTMENT ENCOUNTER Pt Name: Ness Beaver Birthdate 1980 Date of evaluation: 07/28/2023 ED Provider: Hany Fuentes MD CHIEF COMPLAINT Chief Complaint Patient presents with Back Pain Back pain worsening over the last 3 days HISTORY OF PRESENT ILLNESS (Location/Symptom, Timing/Onset, Context/Setting, Quality, Duration, Modifying Factors, Severity) Note limiting factors. I wore appropriate PPE for the entirety of this encounter. HPI Ness Beaver is a 43 y.o. who presents to the emergency department with right-sided lumbar back pain worse over the last 3 days, this is a chronic issue for him, he denies any fevers chills or bodyaches, no radiation of pain. Worse with movement. No trauma. Patient denies any loss of bladder or bowel control, saddle anesthesia, radicular symptoms, or fevers. Patient denies any pain in the midline and says that the pain is exacerbated by movement and is located in the paraspinal musculature. Nursing Notes were reviewed. Limitations to history: None Outside historians: None REVIEW OF SYSTEMS Review of Systems Pertinent positives and negatives as per HPI PAST MEDICAL HISTORY Past Medical History: Diagnosis Date Depression PTSD (post-traumatic stress disorder) SURGICAL HISTORY Past Surgical History: Procedure Laterality Date TONSILLECTOMY CURRENT MEDICATIONS Previous Medications BUPRENORPHINE-NALOXONE (SUBOXONE) 8-[address] 1 tablet under the tongue Once. SERTRALINE (ZOLOFT) 100 MG TABLET Take by mouth. ALLERGIES Patient has no known allergies. FAMILY HISTORY No family history on file. SOCIAL HISTORY Social History Socioeconomic History Marital status: Single Tobacco Use Smoking status: Never Substance and Sexual Activity Alcohol use: No Drug use: No Comment: methadone PHYSICAL EXAM ED Triage Vitals Temp Heart Rate Resp BP 07/28/23 0701 07/28/23 0701 07/28/23 0701 07/28/23 0701 36.6 C (97.9 F) 75 18 130/79 SpO2 Temp Source Heart Rate Source Patient Position 07/28/23 0701 07/28/23 0659 07/28/23 0701 -- 96 % Temporal Monitor BP Location FiO2 (%) -- -- Physical Exam GENERAL: The patient appears nourished and normally developed. Vital signs as documented. EYES: Head exam is unremarkable. No scleral icterus or orbital trauma noted. HEENT: Mucous membranes moist. Nares patent without copious rhinorrhea. No enlarged lymphadenopathy. LUNGS: Lungs are clear to auscultation, without any respiratory distress. CARDIAC: Rhythm is regular. No dysrythmias or murmurs. ABDOMEN: Nontender with no obvious masses, and no peritoneal signs. EXTREMITIES: Nonedematous, with no obvious deformities. SKIN: Good color, with no significant rashes. No pallor. NEURO: No obvious neurological deficits. Patient moves without difficulty. MUSCULO-SKELETAL: Patient has some generalized lower back tenderness to palpation. No localized, midline bony tenderness and no evidence of fracture. Lower extremity motor function is normal. Lower extremity sensation is intact. DTRs are equal and normal bilaterally. Pain is most likely due to soft-tissue pain (muscular and/or ligamentous). DIAGNOSTIC RESULTS RADIOLOGY (Per Emergency Physician): Interpretation per the Radiologist below, if available at the time of this note: No orders to display LABS: Labs Reviewed - No data to display All other labs were within normal range or not returned as of this dictation. EMERGENCY DEPARTMENT COURSE and DIFFERENTIAL DIAGNOSIS/MDM: Vitals: Vitals: 07/28/23 0659 07/28/23 0701 BP: 130/79 Pulse: 75 Resp: 18 Temp: 36.6 C (97.9 F) TempSrc: Temporal Temporal SpO2: 96% Medications - No data to display SCREENINGS MDM elements: The patient presented with chief complaint of with acute on chronic low back pain without any known trauma. Based on history and physical exam I do not feel that the patient is at high risk for cauda equina syndrome, conus medullaris syndrome, epidural abscess, discitis or vertebral osteomyelitis. The patient was instructed that if they have any worsening symptoms, any numbness or tingling in the genital area, any weakness, or any loss of bladder or bowel control or difficulty urinating the patient return immediately for reevaluation. They voiced understanding.. The differential diagnosis associated with this patient's presentation includes back spasm, back strain, less likely epidural abscess cauda equina syndrome conus medullaris syndrome discitis or vertebral osteomyelitis. Our workup consisted of ordering/reviewing: No need for imaging or labs at this time, there is no spinal tenderness on exam and no red flag symptoms, treated with Flexeril and prednisone. Patient has history of opiate dependence has been sober for 6 months. The patient will be Discharged. Patient is in agreement with this plan. PROCEDURES: Unless otherwise noted below, none Procedures CRITICAL CARE TIME None FINAL IMPRESSION 1. Lumbar strain, initial encounter DISPOSITION Discharge 07/28/2023 07:13:05 AM PATIENT [facility]ED TO: [facility] [address] [place] [phone] Schedule an appointment as soon as possible for a visit DISCHARGE MEDICATIONS: New Prescriptions CYCLOBENZAPRINE (FLEXERIL) 10 MG TABLET Take 1 tablet (10 mg) by mouth 2 times daily as needed for muscle spasms for up to 10 days. PREDNISONE (DELTASONE) 20 MG TABLET Take 2 tablets (40 mg) by mouth daily for 4 days. (Comment: Please note this report has been produced using speech recognition software and may contain errors related to that system including errors in grammar, punctuation, and spelling, as well as words and phrases that may be inappropriate. If there are any questions or concerns please feel free to contact the dictating provider for clarification.) Hany Fuentes MD (electronically signed) Emergency Medicine Provider Hany Fuentes MD 07/28/23807 [facility] 04-02-2023 Hospital Discharg e instructions Maribeth Veliz APRN - 04/02/2023 11:27 AM EST In the medical field, there is always a level of diagnostic uncertainty, even if this uncertainty is low. For this reason, it is important to immediately return to the emergency department if you have any new symptoms, worsening symptoms, change of symptoms, or if you have any other concerns. We would be happy to re-evaluate you. Otherwise, please take your medications as prescribed and follow-up as recommended. The following attachments cannot be sent through [facility] Everywhere.Respiratory Syncytial Virus Discharge Instructions, Adult (Danish)documented in this encounter [facility] 04-02-2023 Emergency departm ent Note EMERGENCY DEPARTMENT ENCOUNTER Pt Name: Ness Beaver Birthdate 1980 Date of evaluation: 04/02/2023 ED Provider: Maribeth Veliz APRN Patient seen independently within my scope of practice with an Emergency Medicine attending available for supervision. CHIEF COMPLAINT Chief Complaint Patient presents with Cough Pt reports cold and flu symptoms, congestion is the worst, and coughs up dark yellow/brown mucus. Denies SOB & chest pain. Pt is taking guaifenesin with little relief. Flank Pain Pt reports bilateral flank pain that started yesterday, 8/10 sharp pain. Pt has dark urine, but denies pain with urination. Hx of Hep C. HISTORY OF PRESENT ILLNESS (Location/Symptom, Timing/Onset, Context/Setting, Quality, Duration, Modifying Factors, Severity) Note limiting factors. I wore appropriate PPE for the entirety of this encounter. HPI Ness Beaver is a 43 y.o. who presents to the emergency department complaining of productive cough and congestion for the past 5 days. Patient reports that one of his friends has been sick for the last couple of weeks, has not been tested for viral illnesses. Patient reports he has been taking guaifenesin without significant relief. Patient also states that his urine has been dark and he starting to notice some bilateral flank pain earlier today, describes this as a dull ache. Patient denies headache, fever, chills, lightheadedness, dizziness, visual disturbances, sore throat, chest pain, shortness of breath, abdominal pain, nausea, vomiting, diarrhea, constipation, hematemesis, hematochezia. Denies dysuria or gross hematuria. Patient's past medical history includes paresthesias, elevated transaminases, long QT syndrome, and depression. Nursing Notes were reviewed. Limitations to history: None Outside historians: None REVIEW OF SYSTEMS Review of Systems Pertinent positives and negatives as per HPI. 11 systems reviewed PAST MEDICAL HISTORY Past Medical History: Diagnosis Date Depression PTSD (post-traumatic stress disorder) SURGICAL HISTORY Past Surgical History: Procedure Laterality Date TONSILLECTOMY CURRENT MEDICATIONS Discharge Medication List as of 04/02/2023 11:27 AM CONTINUE these medications which have NOT CHANGED Details buprenorphine-naloxone (Suboxone) 8-[address] 1 tablet under the tongue Once., Historical Med sertraline (Zoloft) 100 MG tablet Take by mouth., Historical Med ALLERGIES Patient has no known allergies. FAMILY HISTORY No family history on file. SOCIAL HISTORY Social History Socioeconomic History Marital status: Single Tobacco Use Smoking status: Never Substance and Sexual Activity Alcohol use: No Drug use: No Comment: methadone SCREENINGS PHYSICAL EXAM ED Triage Vitals Temp Pulse Resp BP -- -- -- -- SpO2 Temp src Heart Rate Source Patient Position -- -- -- -- BP Location FiO2 (%) -- -- Physical Exam Vitals and nursing note reviewed. Constitutional: General: He is not in acute distress. Appearance: He is well-developed. He is not ill-appearing. HENT: Head: Normocephalic and atraumatic. Nose: Congestion present. Mouth/Throat: Mouth: Mucous membranes are moist. Pharynx: Oropharynx is clear. No oropharyngeal exudate or posterior oropharyngeal erythema. Eyes: Extraocular Movements: Extraocular movements intact. Conjunctiva/sclera: Conjunctivae normal. Pupils: Pupils are equal, round, and reactive to light. Cardiovascular: Rate and Rhythm: Normal rate and regular rhythm. Pulses: Normal pulses. Heart sounds: Normal heart sounds. No murmur heard. Pulmonary: Effort: Pulmonary effort is normal. No respiratory distress. Breath sounds: Normal breath sounds. Abdominal: General: Abdomen is flat. Bowel sounds are normal. There is no distension. Palpations: Abdomen is soft. There is no mass. Tenderness: There is no abdominal tenderness. There is no right CVA tenderness, left CVA tenderness, guarding or rebound. Hernia: No hernia is present. Musculoskeletal: General: No swelling. Normal range of motion. Cervical back: Neck supple. Skin: General: Skin is warm and dry. Capillary Refill: Capillary refill takes less than 2 seconds. Neurological: General: No focal deficit present. Mental Status: He is alert and oriented to person, place, and time. Psychiatric: Mood and Affect: Mood normal. Behavior: Behavior normal. Thought Content: Thought content normal. Judgment: Judgment normal. DIAGNOSTIC RESULTS RADIOLOGY (Per Emergency Physician): Interpretation per the Radiologist below, if available at the time of this note: XR chest 1 view Final Result Impression: No acute cardiopulmonary process. Report Dictated on Electronically Signed By: Live Stinson MD Electronically Signed Date/Time: 04/02/2023 11:06 AM EST LABS: Labs Reviewed SARS-COV-2, FLU A/B, AND RSV COMBO - Abnormal Result Value SARS-CoV-2 Not Detected Respiratory Syncytial Virus Detected (*) Influenza A Not Detected Influenza B Not Detected Narrative: Methodology: real-time, RT-PCR COMPLETE URINALYSIS - Abnormal Color, Urine Yellow Clarity, Urine Clear pH, Urine 6.0 Leukocytes, Urine 25 (*) Nitrite, Urine Negative Protein, Urine 10 (*) Glucose, Urine Normal Bilirubin, Urine Negative Ketones, Urine Negative Urobilinogen, Urine 3 (*) Blood, Urine Negative RBC, Urine 3-5 (*) WBC, Urine 3-5 Squamous Epithelial, Urine 0-2 Bacteria, Urine Few (*) Mucus, Urine Many (*) Hyaline Casts, Urine Negative SPECIFIC GRAVITY OF URINE (NUMERIC) 1.033 (*) COMPLETE URINALYSIS WITH REFLEX TO CULTURE Narrative: The following orders were created for panel order Urinalysis complete with reflex to Culture. Procedure Abnormality Status --------- ------ Complete Urinalysis[[id number]] Abnormal Final result Please view results for these tests on the individual orders. All other labs were within normal range or not returned as of this dictation. EMERGENCY DEPARTMENT COURSE and DIFFERENTIAL DIAGNOSIS/MDM: Vitals: Vitals: 04/02/23 0916 04/02/23 0916 04/02/23 1134 BP: 119/88 121/67 Pulse: 62 68 Resp: 18 16 Temp: 36.2 C (97.1 F) TempSrc: Temporal SpO2: 95% 100% Weight: 72.6 kg (160 lb) Height: 1.727 m (5' 8 ) Medications - No data to display MDM elements: The patient presented with chief complaint of productive cough and congestion for the past 5 days, now accompanied by bilateral flank pain. The differential diagnosis associated with this patient's presentation includes COVID-19, influenza A, influenza B, RSV, pneumonia, bronchitis, other viral syndrome, streptococcal pharyngitis, viral pharyngitis, urinary tract infection, nephrolithiasis, pyelonephritis. Our workup consisted of ordering/reviewing: Urinalysis was ordered due to complaint of bilateral flank pain; overall unremarkable. There is no CVA tenderness on exam. Patient denies difficulty urinating, dysuria, hematuria. Because of this I have low clinical suspicion for nephrolithiasis or pyelonephritis. Chest x-ray was obtained to evaluate for pneumonia, no acute cardiopulmonary process noted on chest x-ray. Patient was tested for viral illnesses, negative for COVID-19, influenza A, and influenza B. Patient did test positive for respiratory syncytial virus. This does likely explain patient's symptoms. Patient prescribed Medrol Dosepak and Tessalon Perles for cough and symptom management. Patient also instructed to continue use of [id number] cold and flu medicine as needed. The patient will be Discharged. Patient is in agreement with this plan. PROCEDURES: Unless otherwise noted below, none Procedures CRITICAL CARE TIME None FINAL IMPRESSION 1. RSV (respiratory syncytial virus infection) DISPOSITION Discharge 04/02/2023 11:26:21 AM PATIENT REFERRED TO: [facility] [address] [place] [phone] Go to As needed, If symptoms worsen DISCHARGE MEDICATIONS: Discharge Medication List as of 04/02/2023 11:27 AM START taking these medications Details benzonatate (Tessalon) 100 MG capsule Take 1 capsule (100 mg) by mouth in the morning and 1 capsule (100 mg) at noon and 1 capsule (100 mg) before bedtime. Do all this for 7 days. Do not crush or chew.., Starting Wed04/02/2023, Until Wed04/09/2023, Normal methylPREDNISolone (Medrol Dospak) 4 MG tablets Follow schedule on package instructions, Normal (Comment: Please note this report has been produced using speech recognition software and may contain errors related to that system including errors in grammar, punctuation, and spelling, as well as words and phrases that may be inappropriate. If there are any questions or concerns please feel free to contact the dictating provider for clarification.) Maribeth Veliz APRN (electronically signed) Emergency Medicine Provider Maribeth Veliz APRN 04/02/23 1136 documented in this encounter [facility] 04-02-2023 Physician Emergen cy department Note EMERGENCY DEPARTMENT ENCOUNTER Pt Name: Ness Beaver Birthdate 1980 Date of evaluation: 04/02/2023 ED Provider: Maribeth Veliz APRN Patient seen independently within my scope of practice with an Emergency Medicine attending available for supervision. CHIEF COMPLAINT Chief Complaint Patient presents with Cough Pt reports cold and flu symptoms, congestion is the worst, and coughs up dark yellow/brown mucus. Denies SOB & chest pain. Pt is taking guaifenesin with little relief. Flank Pain Pt reports bilateral flank pain that started yesterday, 8/10 sharp pain. Pt has dark urine, but denies pain with urination. Hx of Hep C. HISTORY OF PRESENT ILLNESS (Location/Symptom, Timing/Onset, Context/Setting, Quality, Duration, Modifying Factors, Severity) Note limiting factors. I wore appropriate PPE for the entirety of this encounter. HPI Ness Beaver is a 43 y.o. who presents to the emergency department complaining of productive cough and congestion for the past 5 days. Patient reports that one of his friends has been sick for the last couple of weeks, has not been tested for viral illnesses. Patient reports he has been taking guaifenesin without significant relief. Patient also states that his urine has been dark and he starting to notice some bilateral flank pain earlier today, describes this as a dull ache. Patient denies headache, fever, chills, lightheadedness, dizziness, visual disturbances, sore throat, chest pain, shortness of breath, abdominal pain, nausea, vomiting, diarrhea, constipation, hematemesis, hematochezia. Denies dysuria or gross hematuria. Patient's past medical history includes paresthesias, elevated transaminases, long QT syndrome, and depression. Nursing Notes were reviewed. Limitations to history: None Outside historians: None REVIEW OF SYSTEMS Review of Systems Pertinent positives and negatives as per HPI. 11 systems reviewed PAST MEDICAL HISTORY Past Medical History: Diagnosis Date Depression PTSD (post-traumatic stress disorder) SURGICAL HISTORY Past Surgical History: Procedure Laterality Date TONSILLECTOMY CURRENT MEDICATIONS Discharge Medication List as of 04/02/2023 11:27 AM CONTINUE these medications which have NOT CHANGED Details buprenorphine-naloxone (Suboxone) 8-[address] 1 tablet under the tongue Once., Historical Med sertraline (Zoloft) 100 MG tablet Take by mouth., Historical Med ALLERGIES Patient has no known allergies. FAMILY HISTORY No family history on file. SOCIAL HISTORY Social History Socioeconomic History Marital status: Single Tobacco Use Smoking status: Never Substance and Sexual Activity Alcohol use: No Drug use: No Comment: methadone SCREENINGS PHYSICAL EXAM ED Triage Vitals Temp Pulse Resp BP -- -- -- -- SpO2 Temp src Heart Rate Source Patient Position -- -- -- -- BP Location FiO2 (%) -- -- Physical Exam Vitals and nursing note reviewed. Constitutional: General: He is not in acute distress. Appearance: He is well-developed. He is not ill-appearing. HENT: Head: Normocephalic and atraumatic. Nose: Congestion present. Mouth/Throat: Mouth: Mucous membranes are moist. Pharynx: Oropharynx is clear. No oropharyngeal exudate or posterior oropharyngeal erythema. Eyes: Extraocular Movements: Extraocular movements intact. Conjunctiva/sclera: Conjunctivae normal. Pupils: Pupils are equal, round, and reactive to light. Cardiovascular: Rate and Rhythm: Normal rate and regular rhythm. Pulses: Normal pulses. Heart sounds: Normal heart sounds. No murmur heard. Pulmonary: Effort: Pulmonary effort is normal. No respiratory distress. Breath sounds: Normal breath sounds. Abdominal: General: Abdomen is flat. Bowel sounds are normal. There is no distension. Palpations: Abdomen is soft. There is no mass. Tenderness: There is no abdominal tenderness. There is no right CVA tenderness, left CVA tenderness, guarding or rebound. Hernia: No hernia is present. Musculoskeletal: General: No swelling. Normal range of motion. Cervical back: Neck supple. Skin: General: Skin is warm and dry. Capillary Refill: Capillary refill takes less than 2 seconds. Neurological: General: No focal deficit present. Mental Status: He is alert and oriented to person, place, and time. Psychiatric: Mood and Affect: Mood normal. Behavior: Behavior normal. Thought Content: Thought content normal. Judgment: Judgment normal. DIAGNOSTIC RESULTS RADIOLOGY (Per Emergency Physician): Interpretation per the Radiologist below, if available at the time of this note: XR chest 1 view Final Result Impression: No acute cardiopulmonary process. Report Dictated on Electronically Signed By: Live Stinson MD Electronically Signed Date/Time: 04/02/2023 11:06 AM EST LABS: Labs Reviewed SARS-COV-2, FLU A/B, AND RSV COMBO - Abnormal Result Value SARS-CoV-2 Not Detected Respiratory Syncytial Virus Detected (*) Influenza A Not Detected Influenza B Not Detected Narrative: Methodology: real-time, RT-PCR COMPLETE URINALYSIS - Abnormal Color, Urine Yellow Clarity, Urine Clear pH, Urine 6.0 Leukocytes, Urine 25 (*) Nitrite, Urine Negative Protein, Urine 10 (*) Glucose, Urine Normal Bilirubin, Urine Negative Ketones, Urine Negative Urobilinogen, Urine 3 (*) Blood, Urine Negative RBC, Urine 3-5 (*) WBC, Urine 3-5 Squamous Epithelial, Urine 0-2 Bacteria, Urine Few (*) Mucus, Urine Many (*) Hyaline Casts, Urine Negative SPECIFIC GRAVITY OF URINE (NUMERIC) 1.033 (*) COMPLETE URINALYSIS WITH REFLEX TO CULTURE Narrative: The following orders were created for panel order Urinalysis complete with reflex to Culture. Procedure Abnormality Status --------- ------ Complete Urinalysis[[id number]] Abnormal Final result Please view results for these tests on the individual orders. All other labs were within normal range or not returned as of this dictation. EMERGENCY DEPARTMENT COURSE and DIFFERENTIAL DIAGNOSIS/MDM: Vitals: Vitals: 04/02/23 0916 04/02/23 0916 04/02/23 1134 BP: 119/88 121/67 Pulse: 62 68 Resp: 18 16 Temp: 36.2 C (97.1 F) TempSrc: Temporal SpO2: 95% 100% Weight: 72.6 kg (160 lb) Height: 1.727 m (5' 8 ) Medications - No data to display MDM elements: The patient presented with chief complaint of productive cough and congestion for the past 5 days, now accompanied by bilateral flank pain. The differential diagnosis associated with this patient's presentation includes COVID-19, influenza A, influenza B, RSV, pneumonia, bronchitis, other viral syndrome, streptococcal pharyngitis, viral pharyngitis, urinary tract infection, nephrolithiasis, pyelonephritis. Our workup consisted of ordering/reviewing: Urinalysis was ordered due to complaint of bilateral flank pain; overall unremarkable. There is no CVA tenderness on exam. Patient denies difficulty urinating, dysuria, hematuria. Because of this I have low clinical suspicion for nephrolithiasis or pyelonephritis. Chest x-ray was obtained to evaluate for pneumonia, no acute cardiopulmonary process noted on chest x-ray. Patient was tested for viral illnesses, negative for COVID-19, influenza A, and influenza B. Patient did test positive for respiratory syncytial virus. This does likely explain patient's symptoms. Patient prescribed Medrol Dosepak and Tessalon Perles for cough and symptom management. Patient also instructed to continue use of [id number] cold and flu medicine as needed. The patient will be Discharged. Patient is in agreement with this plan. PROCEDURES: Unless otherwise noted below, none Procedures CRITICAL CARE TIME None FINAL IMPRESSION 1. RSV (respiratory syncytial virus infection) DISPOSITION Discharge 04/02/2023 11:26:21 AM PATIENT REFERRED TO: [facility] EMERGENCY DEPT [address] [place] [id number] Go to As needed, If symptoms worsen DISCHARGE MEDICATIONS: Discharge Medication List as of 04/02/2023 11:27 AM START taking these medications Details benzonatate (Tessalon) 100 MG capsule Take 1 capsule (100 mg) by mouth in the morning and 1 capsule (100 mg) at noon and 1 capsule (100 mg) before bedtime. Do all this for 7 days. Do not crush or chew.., Starting Wed04/02/2023, Until Wed04/09/2023, Normal methylPREDNISolone (Medrol Dospak) 4 MG tablets Follow schedule on package instructions, Normal (Comment: Please note this report has been produced using speech recognition software and may contain errors related to that system including errors in grammar, punctuation, and spelling, as well as words and phrases that may be inappropriate. If there are any questions or concerns please feel free to contact the dictating provider for clarification.) Maribeth Veliz APRN (electronically signed) Emergency Medicine Provider Maribeth Veliz APRN 04/02/23 1136 [facility] 03-06-2023 Emergency departm ent Note Discharge instructions reviewed with patient and he understands. He will take 2 doses of 8mg suboxone on 03/07,03/08, and 03/09. He will not take any suboxone on 03/10 for appointment at [facility]. I called [facility] for transportation. Patient discharged to wait in waiting room for ride. Luba Abbott RN 03/06/231936 [facility] 03-06-2023 Emergency departm ent Note Discharge instructions reviewed with patient and he understands. He will take 2 doses of 8mg suboxone on 03/07,03/08, and 03/09. He will not take any suboxone on 03/10 for appointment at [facility]. I called [facility] for transportation. Patient discharged to wait in waiting room for ride. 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 PRC card provided. Verified with Care Transport Nurse at [facility] that he is a patient there. Luba Abbott RN 03/06/231908 Patient in MAT room, with suboxone prescription, has 6 8 mg suboxone strips. States the suboxone is not working with a plan to transition to methadone on Wednesday. Looking to increase dose as we are unable to initiate methadone in the ED. Addiction medicine was consulted from [facility] and stated there is no concern to increase dose with methadone transition in the future but to instruct patient to hold dose the morning of his appointment. Ness Beaver was transferred from [facility] to [facility] for suboxone dosing. He was driven by [employer] ([employer]) employee. Dr. Uribe was consulted to discuss plan of care for this patient. He was taking suboxone 16mg and had elevated liver enzymes. His dose was stopped in January. On 02/21 he was sent to [facility] due to potential suicidal ideation. He restarted suboxone on 02/22 at 4mg. He is currently on 8/2mg per day. Last dose was on 03/05/2023 suboxone 8/2 film. He has the filled rx on him. He has an appointment to transfer to Methadone on 03/10/23 at [facility]. Luba Abbott RN 03/06/231714 EMERGENCY DEPARTMENT ENCOUNTER Pt Name: Ness Beaver Birthdate 1980 Date of evaluation: 03/06/2023 ED Provider: Maribeth Veliz APRN Patient seen independently within my scope of practice with an Emergency Medicine attending available for supervision. CHIEF COMPLAINT Chief Complaint Patient presents with Addiction Problem Sent from [place] via Dr. Uribe to see MAT nurse. Acc was consulted from [facility] via telehealth. Pt stated on 16/4 mg suboxone via telehealth. Now stating on 8/2 and prescription endorses this. His goal is to transition to methadone and [facility] but was unable to dose due to them not having his information. They sent him to [facility]. Unable to dose methadone as a new prescription but per addiction consult plan is to increase dose of suboxone. HISTORY OF PRESENT ILLNESS (Location/Symptom, Timing/Onset, Context/Setting, Quality, Duration, Modifying Factors, Severity) Note limiting factors. I wore appropriate PPE for the entirety of this encounter. HPI Ness Beaver is a 42 y.o. who presents to the emergency department from [facility] for Suboxone dosing. Patient states that his Suboxone therapy was discontinued on 21 February due to elevated liver enzymes. Patient states he was then sent to [facility] due to suicidal ideation. Suboxone therapy restarted on 22 February at 4 mg daily. Patient has been titrated up to 8 mg daily with his last dose yesterday. He does however state that this dose has not been sufficient for managing withdrawal symptoms. There was a misunderstanding at [facility] at which time it was understood that patient was on 16 mg daily of Suboxone and still needed an increase in dose. Because of this patient was sent to [facility] to be seen by addiction medicine physician. Patient does have 6 films of 8/2 Suboxone on him. Has appointment to transfer to methadone on 03/10/2023 at [facility]. Patient endorses some chills, mild nausea, mild headaches. Denies fevers, chest pain, shortness of breath, cough, abdominal pain, vomiting, diarrhea, constipation. Denies auditory or visual hallucinations. Additionally patient denies suicidal or homicidal ideation. Nursing Notes were reviewed. Limitations to history: None Outside historians: None REVIEW OF SYSTEMS Review of Systems Pertinent positives and negatives as per HPI. 5 systems reviewed PAST MEDICAL HISTORY Past Medical History: Diagnosis Date Depression PTSD (post-traumatic stress disorder) SURGICAL HISTORY Past Surgical History: Procedure Laterality Date TONSILLECTOMY CURRENT MEDICATIONS Discharge Medication List as of 03/06/2023 6:56 PM CONTINUE these medications which have NOT CHANGED Details buprenorphine-naloxone (Suboxone) 8-[address] 1 tablet under the tongue Once., Historical Med sertraline (Zoloft) 100 MG tablet Take by mouth., Historical Med ALLERGIES Patient has no known allergies. FAMILY HISTORY No family history on file. SOCIAL HISTORY Social History Socioeconomic History Marital status: Single Tobacco Use Smoking status: Never Substance and Sexual Activity Alcohol use: No Drug use: No Comment: methadone SCREENINGS PHYSICAL EXAM ED Triage Vitals Temp Pulse Resp BP -- -- -- -- SpO2 Temp src Heart Rate Source Patient Position -- -- -- -- BP Location FiO2 (%) -- -- Physical Exam Vitals and nursing note reviewed. Constitutional: General: He is not in acute distress. Appearance: He is well-developed. HENT: Head: Normocephalic and atraumatic. Nose: Nose normal. Mouth/Throat: Mouth: Mucous membranes are moist. Pharynx: Oropharynx is clear. Eyes: Extraocular Movements: Extraocular movements intact. Conjunctiva/sclera: Conjunctivae normal. Pupils: Pupils are equal, round, and reactive to light. Cardiovascular: Rate and Rhythm: Normal rate and regular rhythm. Pulses: Normal pulses. Heart sounds: Normal heart sounds. No murmur heard. Pulmonary: Effort: Pulmonary effort is normal. No respiratory distress. Breath sounds: Normal breath sounds. Abdominal: General: Abdomen is flat. Bowel sounds are normal. Palpations: Abdomen is soft. Tenderness: There is no abdominal tenderness. Musculoskeletal: General: No swelling. Normal range of motion. Cervical back: Normal range of motion and neck supple. Skin: General: Skin is warm and dry. Capillary Refill: Capillary refill takes less than 2 seconds. Neurological: General: No focal deficit present. Mental Status: He is alert. Psychiatric: Mood and Affect: Mood normal. Behavior: Behavior normal. Thought Content: Thought content normal. Judgment: Judgment normal. DIAGNOSTIC RESULTS RADIOLOGY (Per Emergency Physician): Interpretation per the Radiologist below, if available at the time of this note: No orders to display LABS: Labs Reviewed - No data to display All other labs were within normal range or not returned as of this dictation. EMERGENCY DEPARTMENT COURSE and DIFFERENTIAL DIAGNOSIS/MDM: Vitals: Vitals: 03/06/231916 Pulse: 78 Resp: 18 Temp: 36.6 C (97.8 F) TempSrc: Temporal SpO2: 98% Weight: 72.6 kg (160 lb) Height: 1.727 m (5' 8 ) Medications buprenorphine-naloxone (Suboxone) 8-2 MG per sublingual film 1 Film (1 Film SubLINGual Given 03/06/231906) MDM elements: The patient presented with chief complaint of need for dose change of Suboxone therapy. On exam patient is well-appearing 42-year-old male in no acute distress. Patient is alert and orient x 4 with a GCS of 15. No neurofocal deficits noted. Heart rate and rhythm are regular with no adventitious heart tones. Lungs are clear to auscultation bilaterally. Abdomen is soft, nontender, nondistended.. The differential diagnosis associated with this patient's presentation includes encounter for medication assisted treatment.. Our workup consisted of ordering/reviewing: Patient given 1 dose of Suboxone 8-2 mg sublingual while in ED. I discussed their care with addiction home day care provider nurses dmitry and Rudi. They had reached out to addiction care physician Dr. Uribe prior to my involvement with patient who recommended that patient take 8-2 mg sublingual film twice daily until his appointment with Vikas. I discussed this with patient and made notation of patient's discharge paperwork that he was instructed to do so so there is no question that patient was abusing medication. Patient verbalized understanding.. The patient will be Discharged. Patient is in agreement with this plan. PROCEDURES: Unless otherwise noted below, none Procedures CRITICAL CARE TIME None FINAL IMPRESSION 1. Encounter for monitoring Suboxone maintenance therapy DISPOSITION Discharge 03/06/2023 06:54:13 PM PATIENT REFERRED TO: Vikas Please keep your follow-up appointment for Wednesday DISCHARGE MEDICATIONS: Discharge Medication List as of 03/06/2023 6:56 PM (Comment: Please note this report has been produced using speech recognition software and may contain errors related to that system including errors in grammar, punctuation, and spelling, as well as words and phrases that may be inappropriate. 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 PRC card provided. Verified with Care Transport Nurse at [facility] that he is a patient there. Luba Abbott RN 03/06/23 8920 [facility] 03-06-2023 Hospital Discharg e instructions Maribeth Veliz APRN - 03/06/2023 6:56 PM EST As discussed with myself, [facility] nurses, and Dr. Uribe with addiction medicine, please take 1 8 mg Suboxone film, twice daily until your upcoming appointment with Vikas. In the medical field, there is always a level of diagnostic uncertainty, even if this uncertainty is low. For this reason, it is important to immediately return to the emergency department if you have any new symptoms, worsening symptoms, change of symptoms, or if you have any other concerns. We would be happy to re-evaluate you. Otherwise, please take your medications as prescribed and follow-up as recommended. The following attachments cannot be sent through Care Everywhere.Drug Level Monitoring (Danish)documented in this encounter [facility] 03-06-2023 Emergency depart ent Triage note Patient in MAT room, with suboxone prescription, has 6 8 mg suboxone strips. States the suboxone is not working with a plan to transition to methadone on Wednesday. Looking to increase dose as we are unable to initiate methadone in the ED. Addiction medicine was consulted from [facility] and stated there is no concern to increase dose with methadone transition in the future but to instruct patient to hold dose the morning of his appointment. [facility] 03-06-2023 Emergency departm ent Note Ness Beaver was transferred from [facility] to [facility] for suboxone dosing. He was driven by [employer] ([employer] employee. Dr. Uribe was consulted to discuss plan of care for this patient. He was taking suboxone 16mg and had elevated liver enzymes. His dose was stopped in January. On 02/21 he was sent to [facility] due to potential suicidal ideation. He restarted suboxone on 02/22 at 4mg. He is currently on 8/2mg per day. Last dose was on 03/05/2023 suboxone 8/2 film. He has the filled rx on him. He has an appointment to transfer to [facility] on 03/10/23 at [facility]. Luba Abbott RN 03/06/23 1715 [facility] 03-06-2023 Physician Emergen cy department Note EMERGENCY DEPARTMENT ENCOUNTER Pt Name: Ness Beaver Birthdate 1980 Date of evaluation: 03/06/2023 ED Provider: Maribeth Veliz APRN Patient seen independently within my scope of practice with an Emergency Medicine attending available for supervision. CHIEF COMPLAINT Chief Complaint Patient presents with Addiction Problem Sent from [place] via Dr. Uribe to see MAT nurse. Acc was consulted from [facility] via telehealth. Pt stated on 16/4 mg suboxone via telehealth. Now stating on 8/2 and prescription endorses this. His goal is to transition to methadone and went to [place] today through [facility] but was unable to dose due to them not having his information. They sent him to [facility]. Unable to dose methadone as a new prescription but per addiction consult plan is to increase dose of suboxone. HISTORY OF PRESENT ILLNESS (Location/Symptom, Timing/Onset, Context/Setting, Quality, Duration, Modifying Factors, Severity) Note limiting factors. I wore appropriate PPE for the entirety of this encounter. HPI Ness Beaver is a 42 y.o. who presents to the emergency department from [facility] for Suboxone dosing. Patient states that his Suboxone therapy was discontinued on 21 February due to elevated liver enzymes. Patient states he was then sent to [facility] due to suicidal ideation. Suboxone therapy restarted on 22 February at 4 mg daily. Patient has been titrated up to 8 mg daily with his last dose yesterday. He does however state that this dose has not been sufficient for managing withdrawal symptoms. There was a misunderstanding at [facility] at which time it was understood that patient was on 16 mg daily of Suboxone and still needed an increase in dose. Because of this patient was sent to [facility] to be seen by addiction medicine physician. Patient does have 6 films of 8/2 Suboxone on him. Has appointment to transfer to methadone on 03/10/2023 at [facility]. Patient endorses some chills, mild nausea, mild headaches. Denies fevers, chest pain, shortness of breath, cough, abdominal pain, vomiting, diarrhea, constipation. Denies auditory or visual hallucinations. Additionally patient denies suicidal or homicidal ideation. Nursing Notes were reviewed. Limitations to history: None Outside historians: None REVIEW OF SYSTEMS Review of Systems Pertinent positives and negatives as per HPI. 5 systems reviewed PAST MEDICAL HISTORY Past Medical History: Diagnosis Date Depression PTSD (post-traumatic stress disorder) SURGICAL HISTORY Past Surgical History: Procedure Laterality Date TONSILLECTOMY CURRENT MEDICATIONS Discharge Medication List as of 03/06/2023 6:56 PM CONTINUE these medications which have NOT CHANGED Details buprenorphine-naloxone (Suboxone) 8-[address] 1 tablet under the tongue Once., Historical Med sertraline (Zoloft) 100 MG tablet Take by mouth., Historical Med ALLERGIES Patient has no known allergies. FAMILY HISTORY No family history on file. SOCIAL HISTORY Social History Socioeconomic History Marital status: Single Tobacco Use Smoking status: Never Substance and Sexual Activity Alcohol use: No Drug use: No Comment: methadone SCREENINGS PHYSICAL EXAM ED Triage Vitals Temp Pulse Resp BP -- -- -- -- SpO2 Temp src Heart Rate Source Patient Position -- -- -- -- BP Location FiO2 (%) -- -- Physical Exam Vitals and nursing note reviewed. Constitutional: General: He is not in acute distress. Appearance: He is well-developed. HENT: Head: Normocephalic and atraumatic. Nose: Nose normal. Mouth/Throat: Mouth: Mucous membranes are moist. Pharynx: Oropharynx is clear. Eyes: Extraocular Movements: Extraocular movements intact. Conjunctiva/sclera: Conjunctivae normal. Pupils: Pupils are equal, round, and reactive to light. Cardiovascular: Rate and Rhythm: Normal rate and regular rhythm. Pulses: Normal pulses. Heart sounds: Normal heart sounds. No murmur heard. Pulmonary: Effort: Pulmonary effort is normal. No respiratory distress. Breath sounds: Normal breath sounds. Abdominal: General: Abdomen is flat. Bowel sounds are normal. Palpations: Abdomen is soft. Tenderness: There is no abdominal tenderness. Musculoskeletal: General: No swelling. Normal range of motion. Cervical back: Normal range of motion and neck supple. Skin: General: Skin is warm and dry. Capillary Refill: Capillary refill takes less than 2 seconds. Neurological: General: No focal deficit present. Mental Status: He is alert. Psychiatric: Mood and Affect: Mood normal. Behavior: Behavior normal. Thought Content: Thought content normal. Judgment: Judgment normal. DIAGNOSTIC RESULTS RADIOLOGY (Per Emergency Physician): Interpretation per the Radiologist below, if available at the time of this note: No orders to display LABS: Labs Reviewed - No data to display All other labs were within normal range or not returned as of this dictation. EMERGENCY DEPARTMENT COURSE and DIFFERENTIAL DIAGNOSIS/MDM: Vitals: Vitals: 03/06/231916 Pulse: 78 Resp: 18 Temp: 36.6 C (97.8 F) TempSrc: Temporal SpO2: 98% Weight: 72.6 kg (160 lb) Height: 1.727 m (5' 8 ) Medications buprenorphine-naloxone (Suboxone) 8-2 MG per sublingual film 1 Film (1 Film SubLINGual Given 03/06/231906) MDM elements: The patient presented with chief complaint of need for dose change of Suboxone therapy. On exam patient is well-appearing 42-year-old male in no acute distress. Patient is alert and orient x 4 with a GCS of 15. No neurofocal deficits noted. Heart rate and rhythm are regular with no adventitious heart tones. Lungs are clear to auscultation bilaterally. Abdomen is soft, nontender, nondistended.. The differential diagnosis associated with this patient's presentation includes encounter for medication assisted treatment.. Our workup consisted of ordering/reviewing: Patient given 1 dose of Suboxone 8-2 mg sublingual while in ED. I discussed their care with addiction home day care provider nurses dmitry and Rudi. They had reached out to addiction care physician Dr. Uribe prior to my involvement with patient who recommended that patient take 8-2 mg sublingual film twice daily until his appointment with Vikas. I discussed this with patient and made notation of patient's discharge paperwork that he was instructed to do so so there is no question that patient was abusing medication. Patient verbalized understanding.. The patient will be Discharged. Patient is in agreement with this plan. PROCEDURES: Unless otherwise noted below, none Procedures CRITICAL CARE TIME None FINAL IMPRESSION 1. Encounter for monitoring Suboxone maintenance therapy DISPOSITION Discharge 03/06/2023 06:54:13 PM PATIENT REFERRED TO: Vikas Please keep your follow-up appointment for Wednesday DISCHARGE MEDICATIONS: Discharge Medication List as of 03/06/2023 6:56 PM (Comment: Please note this report has been produced using speech recognition software and may contain errors related to that system including errors in grammar, punctuation, and spelling, as well as words and phrases that may be inappropriate. If there are any questions or concerns please feel free to contact the dictating provider for clarification.) Maribeth Veliz APRN (electronically signed) Emergency Medicine Provider Maribeth Veliz APRN 03/06/23 9492 [facility] 03-06-2023 Emergency departm ent Note Patient being transported over to [facility] by private vehicle (I spoke with Julio Cesar from [facility] who is coming to pick the patient up). Resources have been sent with patient. Vitals remain stable. Viki Mathew RN 03/06/23 1455 [facility] 03-06-2023 Emergency depart ent Note Patient being transported over to [facility] by private vehicle (I spoke with Julio Cesar from [facility] who is coming to pick the patient up). Resources have been sent with patient. Vitals remain stable. 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 Pt aware and will wait in waiting room until he can be evaluated Reyna Cason RN 03/06/23 0758 EMERGENCY DEPARTMENT ENCOUNTER Pt Name: Ness Beaver Birthdate 1980 Date of evaluation: 03/06/2023 ED Provider: Katie Loza DO CHIEF COMPLAINT Chief Complaint Patient presents with Drug / Alcohol Assessment Pt presents for dose of methadone. States he has been on suboxone since January 27 after leaving detox but is trying to switch over to methadone which he used to take because it helped his symptoms better. Last had suboxone dose 3 days ago and last took methadone in November before going to detox. Was dropped off here by [facility] to sort out a dose. HISTORY OF PRESENT ILLNESS (Location/Symptom, Timing/Onset, Context/Setting, Quality, Duration, Modifying Factors, Severity) Note limiting factors. I wore appropriate PPE for the entirety of this encounter. HPI 42-year-old male presents emergency department today seeking methadone initiation. Is currently at [facility] and was dropped off here for possible emergency dose. He was taken to [facility] and they have an appointment for him on Wednesday but cannot initiate until then unless he has a cancellation there. He denies any alcohol use. Last used IV drugs on January 27. He last used methadone in November of this year. He states it was helping him. Of note he currently has a prescription for the highest dose of Suboxone but states is not helping him. Nursing Notes were reviewed. Limitations to history: None Outside historians: None REVIEW OF SYSTEMS Review of Systems Psychiatric/Behavioral: History of substance abuse Pertinent positives and negatives as per HPI. PAST MEDICAL HISTORY Past Medical History: Diagnosis Date Depression PTSD (post-traumatic stress disorder) SURGICAL HISTORY Past Surgical History: Procedure Laterality Date TONSILLECTOMY CURRENT MEDICATIONS Discharge Medication List as of 03/06/2023 3:04 PM CONTINUE these medications which have NOT CHANGED Details sertraline (Zoloft) 100 MG tablet Take by mouth., Historical Med ALLERGIES Patient has no known allergies. FAMILY HISTORY No family history on file. SOCIAL HISTORY Social History Socioeconomic History Marital status: Single Tobacco Use Smoking status: Never Substance and Sexual Activity Alcohol use: No Drug use: No Comment: methadone SCREENINGS [place] Coma Scale Best Eye Response: Spontaneous Best Verbal Response: Oriented Best Motor Response: Follows commands [place] Coma Scale Score: 15 PHYSICAL EXAM ED Triage Vitals Temp Heart Rate Resp BP 03/06/23 0727 03/06/23 0703/06/23 0727 03/06/23 0727 36.6 C (97.8 F) 67 18 (!) 142/86 SpO2 Temp Source Heart Rate Source Patient Position 03/06/23 0703/06/23 0727 03/06/23 0727 03/06/23 1157 100 % Temporal Monitor Sitting BP Location FiO2 (%) 03/06/23 1157 -- Left arm Physical Exam Vitals and nursing note reviewed. Constitutional: General: He is not in acute distress. Appearance: He is well-developed. HENT: Head: Normocephalic and atraumatic. Cardiovascular: Rate and Rhythm: Normal rate and regular rhythm. Heart sounds: No murmur heard. Pulmonary: Effort: Pulmonary effort is normal. No respiratory distress. Breath sounds: Normal breath sounds. Musculoskeletal: General: No swelling. Cervical back: Neck supple. Skin: General: Skin is warm and dry. Neurological: Mental Status: He is alert. Psychiatric: Mood and Affect: Mood normal. Thought Content: Thought content normal. DIAGNOSTIC RESULTS Procedures/EKG: EKG was reviewed by myself. Physician EKG interpretation can be found in [facility] RADIOLOGY (Per Emergency Physician): Interpretation per the Radiologist below, if available at the time of this note: No orders to display ED BEDSIDE ULTRASOUND: Performed by ED Physician - none LABS: Labs Reviewed HEPATIC FUNCTION PANEL - Abnormal Result Value BILIRUBIN, TOTAL 0.7 BILIRUBIN, DIRECT 0.0 ALKALINE PHOSPHATASE 71 AST (SGOT) 60 (*) ALT 106 (*) ALBUMIN 4.2 TOTAL PROTEIN 7.6 All other labs were within normal range or not returned as of this dictation. EMERGENCY DEPARTMENT COURSE and DIFFERENTIAL DIAGNOSIS/MDM: Vitals: Vitals: 03/06/23 0727 03/06/23 1157 03/06/23 1450 BP: (!) 142/86 117/79 120/81 BP Location: Left arm Patient Position: Sitting Pulse: 67 66 64 Resp: 18 16 16 Temp: 36.6 C (97.8 F) TempSrc: Temporal SpO2: 100% 99% 97% ED Course as of 03/06/23 1528 Sat Mar 06, 2023 1154 42-year-old male presents emergency department today seeking methadone initiation. Is currently at [facility] and was dropped off here for possible emergency dose. He was taken to [facility] and they have an appointment for him on Wednesday but cannot initiate until then unless he has a cancellation there. He denies any alcohol use. Last used IV drugs on January 27. He last used methadone in November of this year. He states it was helping him. Of note he currently has a prescription for the highest dose of Suboxone but states is not helping him. [BM] [address] Malik Theodore of addiction medicine he states that patient to be evaluated by MAT nurse at [facility] if would like to be bridged from Suboxone to methadone. We cannot dispense methadone here in the ED. Told patient that apparently he needs to have his liver function test checked given his history of hepatitis and also be evaluated by MAT nurse over there if he would like his dose of Suboxone potentially increased prior to his appointment at [facility] for methadone dosing on Wednesday. [BM] 1449 Patient does have a ride to take him to [facility] for evaluation by the MAT nurse will speak to ED physician for ED to ED transfer. [BM] 1452 Accepted at [facility] emergency department by Dr. Lorenzo for evaluation by MAT nurse. [BM] ED Course User Index [BM] Katie Loza DO Diagnoses as of 03/06/23 1528 History of hepatitis Transaminitis History of opioid abuse (CMS/HCC) (HCC) Medications - No data to display REVAL: CRITICAL CARE TIME FINAL IMPRESSION 1. History of hepatitis 2. Transaminitis 3. History of opioid abuse (CMS/HCC) (HCC) DISPOSITION Transfer To [facility] 03/06/2023 02:49:31 PM PATIENT REFERRED TO: [facility] [address] [address] Schedule an appointment as soon as possible for a visit in 2 days [facility] ED [address] [facility] [phone] As needed, If symptoms worsen DISCHARGE MEDICATIONS: Discharge Medication List as of 03/06/2023 3:04 PM (Comment: Please note this report has been produced using speech recognition software and may contain errors related to that system including errors in grammar, punctuation, and spelling, as well as words and phrases that may be inappropriate. 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 Pt aware and will wait in waiting room until he can be evaluated Reyna Cason RN 03/06/23 0758 [facility] 03-06-2023 Physician Emergen cy department Note EMERGENCY DEPARTMENT ENCOUNTER Pt Name: Ness Beaver Birthdate 1980 Date of evaluation: 03/06/2023 ED Provider: Katie Loza DO CHIEF COMPLAINT Chief Complaint Patient presents with Drug / Alcohol Assessment Pt presents for dose of methadone. States he has been on suboxone since January 27 after leaving detox but is trying to switch over to methadone which he used to take because it helped his symptoms better. Last had suboxone dose 3 days ago and last took methadone in November before going to detox. Was dropped off here by [facility] to sort out a dose. HISTORY OF PRESENT ILLNESS (Location/Symptom, Timing/Onset, Context/Setting, Quality, Duration, Modifying Factors, Severity) Note limiting factors. I wore appropriate PPE for the entirety of this encounter. HPI 42-year-old male presents emergency department today seeking methadone initiation. Is currently at [facility] and was dropped off here for possible emergency dose. He was taken to [facility] and they have an appointment for him on Wednesday but cannot initiate until then unless he has a cancellation there. He denies any alcohol use. Last used IV drugs on January 27. He last used methadone in November of this year. He states it was helping him. Of note he currently has a prescription for the highest dose of Suboxone but states is not helping him. Nursing Notes were reviewed. Limitations to history: None Outside historians: None REVIEW OF SYSTEMS Review of Systems Psychiatric/Behavioral: History of substance abuse Pertinent positives and negatives as per HPI. PAST MEDICAL HISTORY Past Medical History: Diagnosis Date Depression PTSD (post-traumatic stress disorder) SURGICAL HISTORY Past Surgical History: Procedure Laterality Date TONSILLECTOMY CURRENT MEDICATIONS Discharge Medication List as of 03/06/2023 3:04 PM CONTINUE these medications which have NOT CHANGED Details sertraline (Zoloft) 100 MG tablet Take by mouth., Historical Med ALLERGIES Patient has no known allergies. FAMILY HISTORY No family history on file. SOCIAL HISTORY Social History Socioeconomic History Marital status: Single Tobacco Use Smoking status: Never Substance and Sexual Activity Alcohol use: No Drug use: No Comment: methadone SCREENINGS [place] Coma Scale Best Eye Response: Spontaneous Best Verbal Response: Oriented Best Motor Response: Follows commands [place] Coma Scale Score: 15 PHYSICAL EXAM ED Triage Vitals Temp Heart Rate Resp BP 03/06/23 0703/06/23 0703/06/23 0703/06/23 07 36.6 C (97.8 F) 67 18 (!) 142/86 SpO2 Temp Source Heart Rate Source Patient Position 03/06/23 0727 03/06/23 0727 03/06/23 0727 03/06/23 1157 100 % Temporal Monitor Sitting BP Location FiO2 (%) 03/06/23 1157 -- Left arm Physical Exam Vitals and nursing note reviewed. Constitutional: General: He is not in acute distress. Appearance: He is well-developed. HENT: Head: Normocephalic and atraumatic. Cardiovascular: Rate and Rhythm: Normal rate and regular rhythm. Heart sounds: No murmur heard. Pulmonary: Effort: Pulmonary effort is normal. No respiratory distress. Breath sounds: Normal breath sounds. Musculoskeletal: General: No swelling. Cervical back: Neck supple. Skin: General: Skin is warm and dry. Neurological: Mental Status: He is alert. Psychiatric: Mood and Affect: Mood normal. Thought Content: Thought content normal. DIAGNOSTIC RESULTS Procedures/EKG: EKG was reviewed by myself. Physician EKG interpretation can be found in [facility] RADIOLOGY (Per Emergency Physician): Interpretation per the Radiologist below, if available at the time of this note: No orders to display ED BEDSIDE ULTRASOUND: Performed by ED Physician - none LABS: Labs Reviewed HEPATIC FUNCTION PANEL - Abnormal Result Value BILIRUBIN, TOTAL 0.7 BILIRUBIN, DIRECT 0.0 ALKALINE PHOSPHATASE 71 AST (SGOT) 60 (*) ALT 106 (*) ALBUMIN 4.2 TOTAL PROTEIN 7.6 All other labs were within normal range or not returned as of this dictation. EMERGENCY DEPARTMENT COURSE and DIFFERENTIAL DIAGNOSIS/MDM: Vitals: Vitals: 03/06/23 0727 03/06/23 1157 03/06/23 1450 BP: (!) 142/86 117/79 120/81 BP Location: Left arm Patient Position: Sitting Pulse: 67 66 64 Resp: 18 16 16 Temp: 36.6 C (97.8 F) TempSrc: Temporal SpO2: 100% 99% 97% ED Course as of 03/06/23 1528 Sat Mar 06, 2023 1154 42-year-old male presents emergency department today seeking methadone initiation. Is currently at [facility] and was dropped off here for possible emergency dose. He was taken to [facility] and they have an appointment for him on Wednesday but cannot initiate until then unless he has a cancellation there. He denies any alcohol use. Last used IV drugs on January 27. He last used methadone in November of this year. He states it was helping him. Of note he currently has a prescription for the highest dose of Suboxone but states is not helping him. [BM] [address] Malik Theodore of addiction medicine he states that patient to be evaluated by MAT nurse at [facility] if would like to be bridged from Suboxone to methadone. We cannot dispense methadone here in the ED. Told patient that apparently he needs to have his liver function test checked given his history of hepatitis and also be evaluated by MAT nurse over there if he would like his dose of Suboxone potentially increased prior to his appointment at [facility] for methadone dosing on Wednesday. [BM] 1449 Patient does have a ride to take him to [facility] for evaluation by the MAT nurse will speak to ED physician for ED to ED transfer. [BM] 1452 Accepted at [facility] emergency department by Dr. Lorenzo for evaluation by MAT nurse. [BM] ED Course User Index [BM] Katie Loza DO Diagnoses as of 03/06/23 1528 History of hepatitis Transaminitis History of opioid abuse (CMS/HCC) (HCC) Medications - No data to display REVAL: CRITICAL CARE TIME FINAL IMPRESSION 1. History of hepatitis 2. Transaminitis 3. History of opioid abuse (CMS/HCC) (HCC) DISPOSITION Transfer To [facility] 03/06/2023 02:49:31 PM PATIENT REFERRED TO: [facility] [place] [id number] Schedule an appointment as soon as possible for a visit in 2 days [facility] ED [address] [place] [phone] As needed, If symptoms worsen DISCHARGE MEDICATIONS: Discharge Medication List as of 03/06/2023 3:04 PM (Comment: Please note this report has been produced using speech recognition software and may contain errors related to that system including errors in grammar, punctuation, and spelling, as well as words and phrases that may be inappropriate. If there are any questions or concerns please feel free to contact the dictating provider for clarification.) Katie Loza DO (electronically signed) Emergency Medicine Provider Katie Loza DO 03/06/23 1528 [facility] 03-02-2023 Evaluation note Encounter Date Diagnosis Assessment Notes Mar, Elevated liver enzymes (ICD-10 - R74.8) [employer] Other Evaluation noteNo assessment information available [facility] Work Phone: Evaluation note* Diagnosis History of hepatitis- Primary Transaminitis Nonspecific elevation of levels of transaminase or lactic acid dehydrogenase (LDH) History of opioid abuse (CMS/HCC) (HCC) documented in this encounter [facility]Evaluation note* Diagnosis Encounter for monitoring Suboxone maintenance therapy- Primary documented in this encounter [facility]Evaluation note* Diagnosis RSV (respiratory syncytial virus infection)- Primary Respiratory syncytial virus (RSV) [facility]* Diagnosis Lumbar strain, initial encounter- Primary documented in this encounter [facility] HealthHistory general Narrative - Reported* Type Description Date Surgical History tonsillectomy and adenoidectomy [facility] [employer] Other Hospital Discharge instructions Additional Instructions Follow-up with Dr. Jerome You may return to [facility] Work Phone: Hospital Discharge instructions* Attachments The following attachments cannot be sent through Care Everywhere. * Back Muscle Strain (Danish) * Back Stretches on Floor (Danish) [facility] Family History No Family History [...] Complaint headache , fever sen t by Additional Source Comments (unrecognized sect ion and content) No Status Records FoundNo Status Records FoundNo Status Records FoundNo Status Records FoundNo Status Records Found INFORMATION SOURCE (unrecogn ized section and content) DATE CREATED AUTHOR 11/01/2020 [facility] DATE CREATED AUTHOR AUTHOR'S ORGANIZ ATION 09/25/2021 [facility] [employer] [facility] DATE CREATED AUTHOR AUTHOR'S ORGANIZ ATION 02/20/2022 [facility] DATE CREATED AUTHOR AUTHOR'S ORGANIZ ATION 03/28/2023 [facility] DATE CREATED AUTHOR AUTHOR'S ORGANIZ ATION 07/29/2023 [facility] Care Teams (unrecognized sec tion and content) Team Status: Active Member Role Status Dates PHYSICIAN NO FAMILY Primary Care Provider Active Team Status: Inactive Member Role Status Dates PHYSICIAN NO FAMILY Primary Care Provider Active Meera Sullivan MD Attending Provider Active Team Status: Inactive Member Role Status Dates PHYSICIAN NO FAMILY Primary Care Provider Active Joshua Burger MD Emergency Provider Active [employer]per Tender Relationship Specialty Start Date End Date [facility] [address] [place] [address] PCP - General 03/06/23 [employer] Warper Tender Relationship Specialty Start Date End Date [facility] [address] [place] [address] PCP - General 03/06/23 High Speed Warper Tender Relationship Specialty Start Date End Date [facility] [address] [place] [address] PCP - General 03/06/23 High Speed Warper Tender Relationship Specialty Start Date End Date [facility] [address] [place] [address] PCP - General 03/06/23 Goals (unrecognized section and content) Goals may be documented in a n alternate sectionGoals may be documented in an alternate sectionNo Information REASON FOR VISIT (unrecogniz ed section and content) Reason Comments Drug / Alcohol Assessment Pt presents fo r dose of methadone. States he has been on suboxone since January 27 after leaving detox but is trying to switch over to methadone which he used to take because it helped his symptoms better. Last had suboxone dose 3 days ago and last took methadone in November before going to detox. Was dropped off here by [facility] to sort out a dose. Reason Comments Addiction Problem Sent from [place] via Dr. Uribe to see MAT nurse. Acc was consulted from [place] via telehealth. Pt stated on 16/4 mg suboxone via telehealth. Now stating on 09/30 and prescription endorses this. His goal is to transition to methadone [facility] but was unable to dose due to them not having his information. They sent him to [facility]. Unable to dose methadone as a new prescription but per addiction consult plan is to increase dose of suboxone. Reason Comments Cough Pt reports cold and flu symptoms, congestion is the worst, and coughs up dark yellow/brown mucus. Denies SOB & chest pain. Pt is taking guaifenesin with little relief. Flank Pain Pt reports bilateral flank pain that started yesterday, 8/10 sharp pain. Pt has dark urine, but denies pain with urination. Hx of Hep C. Reason Comments Back Pain Back pain worsening over the last 3 days Scheduled Active and Recently Administ ered Medications (unrecognized section and content) Medication Order 03/04/2023 03/05/2023 03/06/2023 buprenorphine-naloxone (Suboxone) 8-2 MG per sublingual film 1 Film (COMPLETED) 1 Film, SubLINGual, Once, On 03/06/23 at 1855, For 1 dose 1907 (Given - Provid er: Luba Abbott RN) FOR RECORDS PERTAINING TO PATIENTS WHO ARE [...] BE BASED ON THE PRIMARY CLINICAL RECORDS. [email or web address] provides no warranty or guarantee of the accuracy or completeness of information in this document.
--- NOTE | 2023-10-08 11:59 | ECG_ITS ---
[facility] Test Date: 2023-10-08 Pat Name: NESS NEGRETE Department: Room: - Gender: Male Web Content Manager: : 1980 Requested By: Order Number: [id number] Reading MD: AYDIN VENTURA Measurements Intervals [place] Rate: 68 P: 54 FL: 140 QRS: -21 QRSD: 96 T: 34 QT: 402 QTc: 419 Interpretive Statements 1100 Sinus rhythm 7202 Moderate left axis deviation 9110 normal ECG Compared to ECG 10/11/2017 21:24:06 Left-axis deviation now present Sinus tachycardia no longer present Indeterminate axis no longer present Electronically Signed On 10-08-2023 18:33:22 EDT by AYDIN VENTURA
--- NOTE | 2023-10-08 12:03 | ED.GENADUL1 ---
HPI HPI - General Adult General Chief complaint: Skin/Abscess/Foreign Body Stated complaint: LEFT SIDE PAIN, REDNESS Time Seen by Provider: 10/08/23 11:49 Source: patient Mode of arrival: walk-in Limitations: no limitations History of Present Illness HPI narrative: 43-year-old male presents to the emergency department for an area of redness and swelling at his left hip. He gives no history of any trauma. It has been there for several days and he states he had a fever the night before last but not since then. There is been no drainage. He thinks it may have been caused by his underwear or pants rubbing on his waistline area. He is on methadone and had a dose this morning. Related Data Home Medications ?Medication ?Instructions ?Recorded ?Confirmed loratadine 10 mg tablet 10 mg PO DAILY PRN allergy symptoms 02/12/23 10/08/23 methadone 10/08/23 Previous Rx's ?Medication ?Instructions ?Recorded cephalexin 500 mg capsule 500 mg PO QID 10 days #40 caps 10/08/23 sulfamethoxazole 800 1 tab PO BID 10 days #20 tabs 10/08/23 mg-trimethoprim 160 mg tablet (Bactrim DS) Allergies Allergy/AdvReac Type Severity Reaction Status Date / Time No Known Drug Allergies Allergy Verified 10/08/23 11:53 Opioid HPI Opioid Management Most Recent Opioid Data: Ur Phencyclidine Scrn Negative (NEGATIVE) 02/12/23 19:48 Review of Systems ROS Narrative A ten point review of systems is negative except as noted above. [facility] Medical History (Updated 10/08/23 @ 12:57 by Tigre Mir MD) Methadone maintenance therapy patient ?F11.20 - Opioid dependence, uncomplicated (ICD-10) Social History Smoking status: Former smoker Exam Narrative Exam Narrative: Nurses note and vital signs reviewed and patient is not hypoxic. General: The patient appears well and in no apparent distress. Patient is resting comfortably on cart. Skin: Warm, dry, no pallor noted. There is an area of erythema 15 cm anterior-posterior x 5.5 cm superior-inferior at the left iliac crest. At the center is a dark fluid-filled superficial area. There is no open area or drainage Head: Normocephalic, atraumatic Eye: Normal conjunctiva, no drainage Ears, Nose, Mouth, and Throat: oral mucosa is moist. Nares patent. Cardiovascular: Regular Rate and Rhythm Respiratory: Patient is in no distress, no accessory muscle use, lungs are clear to auscultation, no wheezing, rales or rhonchi Back: non-tender GI: Soft and nontender Musculoskeletal: The patient has no evidence of calf tenderness, no pitting edema, symmetrical pulses noted bilaterally Neurological: A&O, normal speech Psychiatric: Cooperative Constitutional Vital Signs, click to edit/add: Last Vital Signs Temp 98.3 F 10/08/23 11:47 Pulse 76 10/08/23 11:47 Resp 16 10/08/23 11:47 BP 138/90 10/08/23 11:47 Pulse Ox 95 10/08/23 11:47 O2 Del Method Room Air 10/08/23 11:47 Course Vital Signs Vital signs: Vital Signs Temperature 98.3 F 10/08/23 11:47 Pulse Rate 76 10/08/23 11:47 Respiratory Rate 16 10/08/23 11:47 Blood Pressure 138/90 10/08/23 11:47 Pulse Oximetry 95 10/08/23 11:47 Oxygen Delivery Method Room Air 10/08/23 11:47 Temperature 98.3 F 10/08/23 11:47 Pulse Rate 76 10/08/23 11:47 Respiratory Rate 16 10/08/23 11:47 Blood Pressure 138/90 10/08/23 11:47 Pulse Oximetry 95 10/08/23 11:47 Oxygen Delivery Method Room Air 10/08/23 11:47 Medical Decision Making MDM Narrative Medical decision making narrative: CT shows no evidence of an's and white count of 14,000. He was given IV vancomycin here and discharged home on Bactrim and Keflex. He was recommended warm compresses and will return if symptoms worsen. I do not feel that admission to the hospital is indicated at this point. Treatment diagnosis and follow-up were discussed with the patient. Differential Diagnosis Differential Diagnosis: Abscess, cellulitis Lab Data Lab results reviewed: Yes I reviewed the patient's lab results Labs: Lab Results 10/08/23 Range/Units 12:01 WBC 14.6 H (4.0-11.0) 10^3/uL RBC 5.33 (4.70-6.10) 10^6/uL Hgb 15.1 (14.0-18.0) g/dL Hct 44.5 (42.0-54.0) % MCV 83.5 (80.0-94.0) fL MCH 28.3 (25.9-34.0) pg MCHC 33.9 (29.9-35.2) g/dL RDW 12.4 (11.0-15.0) % Plt Count 238 (150-450) 10^3/uL MPV 10.6 (9.5-13.5) fL Neut % (Auto) 88.0 H (43.0-75.0) % Lymph % (Auto) 4.9 L (20.5-60.0) % Gordon % (Auto) 6.2 (1.7-12.0) % Eos % (Auto) 0.1 L (0.9-7.0) % Baso % (Auto) 0.3 (0.2-2.0) % Neut # (Auto) 12.9 H (1.4-6.5) 10^3/uL Lymph # (Auto) 0.7 L (1.2-3.8) 10^3/uL Gordon # (Auto) 0.9 H (0.3-0.8) 10^3/uL Eos # (Auto) 0.0 (0.0-0.7) 10^3/uL Baso # (Auto) 0.0 (0.0-0.1) 10^3/uL Abs Immat Gran (auto) 0.07 H (0.00-0.03) 10^3/uL Imm/Tot Granulo (auto) 0.5 (0.0-0.5) % Sodium 129 L (136-145) mmol/L Potassium 3.9 (3.5-5.1) mmol/L Chloride 97 L (98-107) mmol/L Carbon Dioxide 25.7 (21.0-32.0) mmol/L Anion Gap 10.2 BUN 11.0 (7.0-18.0) mg/dL Creatinine 0.85 (0.70-1.30) mg/dL Est GFR ( Amer) >60 (>=60) Est GFR (Non-Af Amer) >60 (>=60) BUN/Creatinine Ratio 12.9 Glucose 137 H (74-106) mg/dL Calcium 8.6 (8.5-10.1) mg/dL Imaging Data CT scan - abdomen: Radiologist's impression: ITS Impressions Abdomen/Pelvis CT 10/08/23 12:28 IMPRESSION: 1. Skin thickening and subcutaneous edema overlying the left iliac crest consistent with patient history. No abscess or underlying mass. 2. Minimal lymphadenopathy. Electronically authenticated by: SINGH JOSEPH Date: 10/08/2023 12:44 ECG Data Attestation: I personally reviewed and interpreted this ECG as follows: (EKG on my interpretation shows normal sinus rhythm with a rate of 68 and no acute change.) Discharge Plan Discharge Stand Alone Forms: Portal Instructions Chief Complaint: Skin/Abscess/Foreign Body Clinical Impression: Cellulitis Patient Disposition: Home, Self-Care Time of Disposition Decision: 12:56 Condition: Good Mode of Transportation: Private Vehicle Prescriptions / Home Meds: New sulfamethoxazole-trimethoprim [Bactrim DS] 800-160 mg tablet 1 tab PO BID 10 Days Qty: 20 0RF cephalexin 500 mg capsule 500 mg PO QID 10 Days Qty: 40 0RF No Action methadone loratadine 10 mg tablet 10 mg PO DAILY PRN (Reason: allergy symptoms) Print Language: [place] Citizen Instructions: Cellulitis (ED), Warm Compress or Soak (ED) Referrals: Physician,Non-Staff, MD [Primary Care Provider] - 1 week
[2023-10-08 12:15] LABS: Basophils Percent Auto 0.3 % (0.2-2.0); Eosinophils Percent Auto 0.1 % (0.9-7.0); Hematocrit 44.5 % (42.0-54.0); Hemoglobin 15.1 g/dL (14.0-18.0); Immature Granulocytes Abs Auto 0.07 10^3/uL (0.00-0.03); Immature Granulocytes Pct Auto 0.5 % (0.0-0.5); Lymphocytes Absolute Auto 0.7 10^3/uL (1.2-3.8); Lymphocytes Percent Auto 4.9 % (20.5-60.0); Mean Corpuscular HGB Conc 33.9 g/dL (29.9-35.2); Mean Corpuscular Hemoglobin 28.3 pg (25.9-34.0); Mean Corpuscular Volume 83.5 fL (80.0-94.0); Mean Platelet Volume 10.6 fL (9.5-13.5); Monocytes Absolute Auto 0.9 10^3/uL (0.3-0.8); Monocytes Percent Auto 6.2 % (1.7-12.0); Neutrophils Absolute Auto 12.9 10^3/uL (1.4-6.5); Platelet Count 238 10^3/uL (150-450); Red Blood Count 5.33 10^6/uL (4.70-6.10); Red Cell Distribution Width 12.4 % (11.0-15.0); White Blood Count 14.6 10^3/uL (4.0-11.0)
[2023-10-08 12:24] LABS: Anion Gap 10.2; BUN Creatinine Ratio 12.9; Calcium 8.6 mg/dL (8.5-10.1); Carbon Dioxide 25.7 mmol/L (21.0-32.0); Chloride 97 mmol/L (98-107); Estimated GFR (African America >60 (>=60); Estimated GFR (Non-African Ame >60 (>=60); Glucose 137 mg/dL (74-106); Potassium 3.9 mmol/L (3.5-5.1); Sodium 129 mmol/L (136-145)
--- NOTE | 2023-10-08 12:28 | CT_ITS ---
The [address] [address] Patient Name: NESS NEGRETE MRN: [id number] date: 1980 Sex: M Assigned Patient Location: ER Current Patient Location: ER Accession/Order Number: [id number] Exam Date: 10/08/2023 12:17 Report Date: 10/08/2023 12:44 At the request of: AVA ENG Procedure: CT abdomen pelvis w con EXAMINATION: CT abdomen pelvis w con HISTORY: Evaluate possible abscess near left iliac crest COMPARISON: CT abdomen pelvis 02/15/2023 TECHNIQUE: Axial, Coronal, and Sagittal images were obtained without and/or with IV contrast as indicated by examination type. Dose reduction techniques were achieved by using automated exposure control and/or adjustment of mA and/or kV according to patient size and/or use of iterative reconstruction technique. FINDINGS: LUNG BASES: No visible pulmonary or pleural disease. LIVER: No enlargement, atrophy, suspicious density, or significant focal lesion. BILIARY: No dilatation or calcification. PANCREAS: No lesion, fluid collection, or abnormal duct dilatation. SPLEEN: No enlargement or focal lesion. ADRENALS: No mass or enlargement. KIDNEYS: No mass, obstruction, or calcification. BOWEL/MESENTERY: No visible mass, obstruction, or bowel wall thickening. AORTA/VASCULAR: No aneurysm or dissection. RETROPERITONEUM: Mild adenopathy. LYMPH NODES: Mild inguinal lymphadenopathy, left greater than right. URINARY BLADDER: No visible focal wall thickening, lesion, or calculus. PELVIC ORGANS: No visible mass. Pelvic organs appropriate for patient age. ABDOMINAL WALL: Areas skin thickening and subcutaneous edema approximately 12 cm in diameter overlying the anterior lateral left iliac crest. No underlying fluid collection or free air to suggest abscess. BONES: No bony lesion or fracture. OTHER: Negative. CT/CT abdomen pelvis w con IMPRESSION: 1. Skin thickening and subcutaneous edema overlying the left iliac crest consistent with patient history. No abscess or underlying mass. 2. Minimal lymphadenopathy. Electronically authenticated by: SIGNH JOSEPH Date: 10/08/2023 12:44
[2023-10-08] MEDS: VANCOMYCIN HCL 1,000 MG in 0.9 % SODIUM CHLORIDE 250 ML 250 MG IV (13:07)
== END 2023-10-08 14:30 | disposition home or self-care (01) ==
PROVIDERS: Emergency Provider Emergency Medicine
DX: L03.116 Cellulitis of left lower limb (principal); Z87.891 Personal history of nicotine dependence
CPT/HCPCS: 36415; 74177; 80048; 85025; 93005; 96365; 99285; J3370; Q9967

== ENCOUNTER 2023-11-23 10:06 | Emergency (ER) | payer OTHER, SELFPAY ==
[2023-11-23 10:14] VITALS: BP 128/87; PULSE 80; TEMP 37.2; O2SAT 95; BMI 24.6
--- NOTE | 2023-11-23 10:24 | XR_ITS ---
The [address] [address] Patient Name: NESS NEGRETE MRN: [id number] date: 1980 Sex: M Assigned Patient Location: ER Current Patient Location: ER Accession/Order Number: [id number] Exam Date: 11/23/2023 11:03 Report Date: 11/23/2023 11:37 At the request of: ROVERTO JOHN Procedure: XR chest 2V EXAMINATION: XR chest 2V HISTORY: chest pain COMPARISON: No relevant comparison available. FINDINGS: LUNGS: No significant pulmonary parenchymal abnormalities. VASCULATURE: No increased pulmonary vasculature. PLEURA: No pneumothorax, effusion, or pleural thickening. CARDIAC: No cardiomegaly or cardiac silhouette abnormality. MEDIASTINUM: No visible mass or adenopathy. BONES: No fracture or visible bone lesion. OTHER: Contour deformity posterior upper back soft tissue which is markedly skin surface marker. XR/XR chest 2V IMPRESSION: 1. No acute cardiac pulmonary process. 2. No suspicious bone abnormality. 3. Suspect subcutaneous mass posterior upper back; possibly a lipoma. Electronically authenticated by: SINGH JOSEPH Date: 11/23/2023 11:37
--- OUTSIDE RECORDS SUMMARY | 2023-11-23 10:31 | XMS_ITS | CCD ---
Author Organization [facility] Care Team Providers Care Boiler Control Technician Name Role Phone PROVIDER, UNKNOWN Attending Unavailable PROVIDER, UNKNOWN Admitting Unavailable BARRY DUFFY Primary Care Unavailable DR CHINEDU CESAR Consulting Unavailable [facility] [place] YEE Primary Care Unavailable DARIN GARY Attending Unavailable DARIN GARY Admitting Unavailable NO FAMILY, PHYSICIAN Primary Care Provider MD Meera Crum Attending Provider NO FAMILY, PHYSICIAN Primary Care Provider MD Joshua Henley Emergency Provider Asaad, Imad Unavailable [facility] Primary Care Provider Unav ailable NO FAMILY, PHYSICIAN Primary Care Unavailable Asaad, Imad Admitting Unavailable Asaad, Imad Attending Unavailable NO FAMILY, PHYSICIAN Primary Care Unavailable eMera Sullivan Admitting Unavailable Meera Sullivan Attending Unavailable NO FAMILY, PHYSICIAN Primary Care Unavailable Joshua Burger Admitting Unavailable Joshua Burger Attending Unavailable KATIE LOZA Attending Unavailable [facility] Primary Care Unavailable [facility] Primary Care Unavailable [facility] Primary Care Unavailable [facility] Primary Care Unavailable HANY FUENTES Attending Unavailable [...] as needed Orally Once a day Active loratadine 10 mg oral tablet (4 sources) Start: 4 End: 4 take 1 tablet by mouth once daily Loratadine (Allergy Relief (Loratadine)) 10 mg tablet Active 10 MG PO Daily October 19, 2023 9:31am methadone hydrochloride 40 mg tablet for oral suspension (2 sources) Opioid Agonist Start: 4 take 40 mg by mouth once daily Methadone Active 40 MG PO Daily October 19, 2023 12:00am methylPREDNISolone 4 mg oral tablet (2 sources) Corticosteroid Start: 4 End: 4 methylPREDNISolone (Medrol Dospak) 4 MG tablets Follow schedule on package instructions 21 tablet 0 04/02/2023 04/09/2023 Active Multivitamin preparation (1 source) take 1 tablet by mouth once daily Multi Vitamin - 1 tablet Orally Once a day Active predniSONE 20 mg oral tablet (2 sources) Start: 4 End: 4 take 2 tablets by mouth once daily predniSONE (Deltasone) 20 MG tablet Take 2 tablets (40 mg) by mouth daily for 4 days. 8 tablet 0 07/28/2023 08/01/2023 Active saccharomyces boulardii 250 mg oral capsule (1 source) Start: 4 take 1 capsule by mouth twice daily Saccharomyces Boulardii (Digest Probiotic (S.Boulardii)) 250 mg capsule Active 250 MG PO Twice daily November 22, 2023 12:00am sertraline 50 mg oral tablet (12 sources) Serotonin Reuptake Inhibitor Start: 4 End: 4 take 1 tablet by mouth once daily Sertraline (Zoloft) 50 mg tablet Active 50 MG PO Daily 90 90 October 19, 2023 9:30am sertraline (Zolo ft) 100 MG tablet Take by mouth. 0 Active Zoloft Active Completed/Discontinued Medications Medication Drug Class(es) Dates Sig (Normalized) Sig (Original) buprenorphine 8 mg / naloxone 2 mg sublingual film (12 sources) Partial Opioid Agonist, Opioid Antagonist Start: 03-06-2023 End: 03-06-2023 buprenorphine-nal oxone (Suboxone) 8-2 MG per sublingual film 1 Film Start: 02-16-2023 End: 10-19-2023 Buprenorphine-Naloxone Disco ntinued 1 FILM SUBLINGUAL Daily February 16, 2023 1:00am October 19, 2023 9:04am buprenorphine-na loxone (Suboxone) 8-2 MG SL tablet Indications: Opioid Dependence Place 1 tablet under the tongue Once. 0 Active Suboxone Active traZODone hydrochloride 50 mg oral tablet (3 sources) Serotonin Reuptake Inhibitor Start: 02-16-2023 End: 10-19-2023 take 50 mg by mouth once daily at bedtime Trazodone Discontinued 50 MG PO Daily at bedtime February 16, 2023 1:00am October 19, 2023 9:05am Problems Active Problems Problem Classification Problem Date Documented Date Episodic/Chronic Abdominal pain (1 source) Unspecified abdominal pain; Translations: [Unspecified abdominal pain] Onset: 02-16-2023 Episodic Anxiety disorders (4 sources) Anxiety; Translations: [Anxiety disorder, unspecified] 10-19-2023 Chronic Conduction disorders (1 source) Long QT syndrome; Translations: [Long QT syndrome] Onset: 05-11-2022 Chronic Hepatitis (4 sources) Viral hepatitis C; Translations: [Unspecified viral hepatitis C without hepatic coma] 10-19-2023 Episodic Mood disorders (4 sources) Depressive disorder; Translations: [Depression] 10-19-2023 Chronic Other aftercare (2 sources) Drug therapy finding; Translations: [Encounter for therapeutic drug level monitoring] 03-06-2023 Episodic Other infections; including parasitic (1 source) H/O: liver disease; Translations: [Personal history of other infectious and parasitic diseases] 03-06-2023 Episodic Other liver diseases (4 sources) Enzyme level - finding; Translations: [Elevated transaminase measurement] 12-19-2023 Episodic Other liver diseases (1 source) Elevated [...] conditions (not mental disorders or infectious disease) (5 sources) Abnormal results of liver function studies; Translations: [Patient encounter status] Onset: 03-02-2023 10-19-2023 Episodic Other upper respiratory disease (2 sources) Allergic rhinitis; Translations: [Allergic rhinitis, unspecified] 10-19-2023 Chronic Other upper respiratory disease (2 sources) Allergic rhinitis, unspecified; Translations: [Allergic rhinitis, cause unspecified] 10-19-2023 Chronic Residual codes; unclassified (2 sources) Family history of cancer of colon; Translations: [Family history of malignant neoplasm of digestive organs] 10-19-2023 Episodic Residual codes; unclassified (2 sources) Family history of malignant neoplasm of digestive organs; Translations: [Family history of malignant neoplasm of gastrointestinal tract] 10-19-2023 Episodic Residual codes; unclassified (1 source) Nicotine-filled electronic cigarette user; Translations: [Tobacco use] 10-19-2023 Episodic Residual codes; unclassified (1 source) Tobacco use; Translations: [Tobacco use disorder] 10-19-2023 Episodic Screening and history of mental health and substance abuse codes (2 sources) Ex-smoker; Translations: [Personal history of nicotine dependence] 10-19-2023 Episodic Sprains and strains (4 sources) Low back strain; Translations: [Strain of muscle, fascia and tendon of lower back, initial encounter] Onset: 07-28-2023 07-28-2023 Episodic Substance-related disorders (5 sources) Nicotine dependence, cigarettes, uncomplicated; Translations: [Opioid [...] 03-06-2023 Episodic Other aftercare (2 sources) Other long line teamster (current) drug therapy; Translations: [Other long line teamster (current) drug therapy] Onset: 03-06-2023 Episodic Viral [...] below, non (more content not included)... Normal [facility] COMPLETE URINALYSISon 2023 BACTERIA (#/HPF) IN URINE Few Abnormal Negative [facility] Comment on above: Performed By: #### L [id number] ####User Experience Lead: CRISTIANA BROWN ([id number])[facility])[address] [place] [address] BILIRUBIN, TOTAL PRESENCE IN URINE Negative Normal Negative [facility] Comment on above: Performed By: #### L [id number] ####User Experience Lead: CRISTIANA BROWN ([id number])[facility])[address] [place] [address] Clarity (U) Clear Normal Clear [facility] Comment on above: Performed By: #### L [id number] ####User Experience Lead: CRISTIANA BROWN ([id number])[facility])[address] [place] [address] Color (U) Yellow Normal Lt. Yellow [facility] Comment on above: Performed By: #### L [id number] ####User Experience Lead: CRISTIANA BROWN ([id number])[facility])[address] [place] [address] [place] GLUCOSE (MG/DL) IN URINE Normal Normal Normal (<70) [facility] Comment on above: Performed By: #### L [id number] ####User Experience Lead: CRISTIANA BROWN ([id number])[facility])[address] [place] [address] HEMOGLOBIN PRESENCE IN URINE Negative Normal Negative [facility] Comment on above: Performed By: #### L [id number] ####User Experience Lead: CRISTIANA BROWN ([id number])[facility] ([facility])[address] [place] [address] HYALINE CASTS (#/LPF) IN URINE SEDIMENT BY MICROSCOPY Negative Normal Negative [facility] Comment on above: Performed By: #### L [id number] ####User Experience Lead: CRISTIANA BROWN ([id number])[facility] ([facility])[address] [place] [address] Ketones Ql (U) Negative Normal Negative [facility] Comment on above: Performed By: #### L [id number] ####User Experience Lead: CRISTIANA BROWN ([id number])[facility] ([facility])[address] [place] [address] LEUKOCYTE ESTERASE PRESENCE IN URINE BY TEST STRIP 25 Irina/uL Abnormal Negative [facility] Comment on above: Performed By: #### L [id number] ####User Experience Lead: CRISTIANA BROWN ([id number])[facility] ([facility])[address] [place] [address] MUCUS (#/LPF) IN URINE SEDIMENT Many Abnormal Negative [facility] Comment on above: Performed By: #### L [id number] ####User Experience Lead: CRISTIANA BROWN ([id number])[facility] ([facility])[address] [place] [address] NITRITE PRESENCE IN URINE Negative Normal Negative [facility] Comment on above: Performed By: #### L [id number] ####User Experience Lead: CRISTIANA BROWN ([id number])[facility] ([facility])[address] [place] [address] pH (U) 6.0 [pH] Normal 5.0-8.0 [facility] Comment on above: Performed By: #### L [id number] ####User Experience Lead: CRISTIANA BROWN ([id number])[facility] ([facility])[address] [place] [address] Protein (U) [Mass/Vol] 10 mg/dL Abnormal Negative [facility] Comment on above: Performed By: #### L [id number] ####User Experience Lead: CRISTIANA BROWN ([id number])[facility] ([facility])[address] [place] [address] RBC (#/HPF) IN URINE SEDIMENT 3-5 Abnormal 0-2 [facility] Comment on above: Performed By: #### L [id number] ####User Experience Lead: CRISTIANA BROWN ([id number])[facility] ([facility])[address] [place] [address] Specific gravity (U) [Rel density] 1.033 High 1.005-1.030 [facility] Comment on above: Performed By: #### L [id number] ####User Experience Lead: CRISTIANA BROWN ([id number])[facility] ([facility])[address] [place] [address] SQUAMOUS EPITHELIAL CELLS (#/HPF) IN URINE SEDIMENT 0-2 Normal 3-5 [facility] Comment on above: Performed By: #### L [id number] ####User Experience Lead: CRISTIANA BROWN ([id number])[facility] ([facility])[address] [place] [address] UROBILINOGEN (MG/DL) IN URINE 3 mg/dL Abnormal Normal (0-1) [facility] Comment on above: Performed By: #### L [id number] ####User Experience Lead: CRISTIANA BROWN ([id number])[facility])[address] [place] [address] WBC (LEUKOCYTE) (#/HPF) IN URINE SEDIMENT 3-5 Normal 0-5 [facility] Comment on above: Performed By: #### L [id number] ####User Experience Lead: CRISTIANA BROWN ([id number])[facility] ([facility])[address] [place] [address] ED Provider Noteon 4 ED Provider Note [...] RSV COM (more content not included)... Normal [facility] Laboratory - Microbiology an d Antimicrobial susceptibilityon 04-02-2023 FLUAV RNA MONTSERRAT+probe Ql (Resp) Not detected Not Detected [facility] FLUBV RNA MONTSERRAT+probe Ql (Resp) Not detected Not Detected [facility] RSV RNA MONTSERRAT+probe Ql (Resp) Detected Abnormal Not Detected [facility] SARS-CoV-2 (COVID-19) RNA MONTSERRAT+probe Ql (Resp) Not detected Not Detected [facility] SARS-COV-2, FLU A/B, AND RSV COMBOon 04-02-2023 SARS-CoV-2 (COVID-19) RNA MONTSERRAT+probe Ql (Unsp spec) SARS-COV-2 Reference Not Detected Not Detected RESPIRATORY SYNCYTIAL VIRUS (A) Reference Detected Not Detected INFLUENZA A (CEPHEID) Reference Not Detected Not Detected INFLUENZA B (CEPHEID) Reference Not Detected Not Detected ORDER COMMENTS: Methodology: real-time, RT-PCR Normal [facility] Comment on above: Performed By: #### L [id number] #### User Experience Lead: CRISTIANA BROWN ([id number]) [facility] ([facility]) [address] [place] [address] SARS-CoV-2, Flu A/B, and RSV Comboon 04-02-2023 Interpretation and review of laboratory results Abnormal [facility] Methodology: real-time, RT-PCR [facility] Urinalysis complete panel (U )Ordered By: Mónica Grace on 04-02-2023 Bacteria LM.HPF (Urine sed) [#/Area] Few Abnormal Negative /HPF [facility] Bilirubin Ql (U) Negative Negative mg/dL [facility] Clarity (U) Clear Clear [facility] Color (U) Yellow Lt. Yellow [facility] Epithelial cells.squamous LM.HPF (Urine sed) [#/Area] 0-2 [facility] Glucose Ql (U) Normal Normal (<70) mg/dL [facility] Hemoglobin Ql (U) Negative Negative mg/dL [facility] Hyaline casts Auto (Urine sed) [#/Area] Negative Negative /LPF [facility] Interpretation and review of laboratory results Abnormal [facility] Ketones (U) [Mass/Vol] Negative Negat harper mg/dL [facility] Leukocyte esterase Test strip Ql (U) 25 Abnormal Negative Irina/uL [facility] Mucus LM.HPF (Urine sed) [#/Area] Many Abnormal Negative /LPF [facility] Nitrite Ql (U) Negative Negative [facility] th pH (U) 6.0 [pH] 5.0 - 8.0 pH [facility] Protein (U) [Mass/Vol] 10 mg/dL Abnormal Negative [facility] RBC LM.HPF (Urine sed) [#/Area] 3-5 Abnormal [facility] Specific gravity (U) [Rel density] 1.033 High 1.005 - 1.030 [facility] Urobilinogen (U) [Mass/Vol] 3 mg/dL Abnormal Normal (0-1) [facility] WBC LM.HPF (Urine sed) [#/Area] 3-5 [facility] XR Chest Single viewon 04-02 Impression: No acute cardiopulmonary process. Report Dictated on Electronically Signed By: Live Stinson MD Electronically Signed Date/Time: 04/02/2023 11:06 AM EST [facility] [employer] Patient Name: NESS BEAVER : 1980 [...] mild to moderate thoracic scoliosis apex leftward. [facility] Live Stinson MD - 04/02/2023 Patient Name: [...] Electronically Signed Date/Time: 04/02/2023 11:06 AM EST [facility] Radiology Study observation (narrative) [facility] XR Chest Single viewOrdered By: Live Stinson on 04-02-2023 [facility] [employer] Work Phone: ED Nursing Noteon 03-06-2023 ED Nursing Note Discharge instructions reviewed with patient and he understands. He will take 2 doses of 8mg suboxone on 03/07,03/08, and 03/09. He will not take any suboxone on 03/10 for appointment at [place]. I called [facility] for transportation. Patient discharged to wait in waiting room for ride. Luba Abbott RN 03/06/23 193 Normal [facility] ED Nursing Note Patient spoke with Peer assistant men's soccer coach on the phone. PRC card provided. Verified with Senior Mainframe Developer at [facility] that he is a patient there. Luba Abbott RN 03/06/23 190 Normal [facility] ED Nursing Note Patient in MAT room, with suboxone prescription, has 6 8 mg suboxone strips. States the suboxone is not working with a plan to transition to methadone on Wednesday. Looking to increase dose as we are unable to initiate methadone in the ED. Addiction medicine was consulted from [facility] and stated there is no concern to increase dose with methadone transition in the future but to instruct patient to hold dose the morning of his appointment. Normal [facility] ED Nursing Note Ness Beaver was transferred from [facility] to [facility] for suboxone dosing. He was driven by [facility] employee. Dr. Uribe was consulted to discuss plan of care for this patient. He was taking suboxone 16mg and had elevated liver enzymes. His dose was stopped in January. On 02/21 he was sent to [facility] due to potential suicidal ideation. He restarted suboxone on 02/22 at 4mg. He is currently on 8/2mg per day. Last dose was on 03/05/2023 suboxone 8/2 film. He has the filled rx on him. He has an appointment to transfer to Methadone on 03/10/23 at [place]. Luba Abbott RN 03/06/[address] [facility] ED Nursing Note Patient being transported over to [facility] by private vehicle (I spoke with Julio Cesar from [facility] who is coming to pick the patient up). Resources have been sent with patient. Vitals remain stable. Viki Mathew RN 03/06/[address] [facility] ED Nursing Note Faxed consent form for Addiction medicine and Peer assistant men's soccer coach pamphlet to [facility] Esme Jeter RN 03/06/23 1301 Esme Jeter RN 03/06/[address] [facility] ED Nursing Note MAT nurse unavailable until 11 am. Pt aware and will wait in waiting room until he can be evaluated Reyna Cason RN 03/06/[address] [facility] ED Provider Noteon ED Provider Note EMERGENCY DEPARTMENT ENCOUNTER Pt Name: Ness Beaver Birthdate 1980 Date of evaluation: 03/06/2023 ED Provider: Maribeth Veliz APRN Patient seen independently within my scope of practice with an Emergency Medicine attending available for supervision. CHIEF COMPLAINT Chief Complaint Patient presents with Addiction Problem Sent from [place] via Dr. Uribe to see MAT nurse. Acc was consulted from [place] via telehealth. Pt stated on 16/4 mg suboxone via telehealth. Now stating on 8/2 and prescription endorses this. His goal is to transition to methadone and went to [place] today through [facility] but was unable to dose due to them not having his information. They sent him to [facility]. Unable to dose methadone as a new prescription but per addiction consult plan is to increase dose of suboxone. HISTORY OF PRESENT ILLNESS (Location/Symptom, Timing/Onset, Context/Setting, Quality, Duration, Modifying Factors, Severity) Note limiting factors. I wore appropriate PPE for the entirety of this encounter. HPI Ness Beaver is a 42 y.o. who presents to the emergency department from [facility] for Suboxone dosing. Patient states that his Suboxone therapy was discontinued on 21 February due to elevated liver enzymes. Patient states he was then sent to [facility] due to suicidal ideation. Suboxone therapy restarted on 22 February at 4 mg daily. Patient has been titrated up to 8 mg daily with his last dose yesterday. He does however state that this dose has not been sufficient for managing withdrawal symptoms. There was a misunderstanding at [facility] at which time it was understood that patient was on 16 mg daily of Suboxone and still needed an increase in dose. Because of this patient was sent to [facility] to be seen by addiction medicine physician. Patient does have 6 films of 8/2 Suboxone on him. Has appointment to transfer to methadone on 03/10/2023 at [facility]. Patient endorses some chills, mild nausea, mild [...] to display (more content not included)... Normal [facility] ED Provider Note I did not participate in care of this patient Maribeth Veliz, HOROLOGIST 03/06/23 1706 Normal [facility] ED Provider Note EMERGENCY DEPARTMENT ENCOUNTER Pt [...] to detox. Was dropped off here by [facility] to sort out a dose. HISTORY OF PRESENT ILLNESS (Location/Symptom, Timing/Onset, Context/Setting, Quality, Duration, Modifying Factors, Severity) Note limiting factors. I wore appropriate PPE for the entirety of this encounter. HPI 42-year-old male presents emergency department today seeking methadone initiation. Is currently at [facility] and was dropped off here for possible emergency dose. He was taken to [place] and they have an appointment for him [...] Response: Oriented Best Motor Response: Follows commands [place] Coma Scale Score: 15 PHYSICAL EXAM ED [...] today seeking methadone initiation. Is currently at [facility] and was dropped off here for possible emergency dose. He was taken to [place] and they have an appointment for him on Wednesday but cannot initiate until then unless he has a cancellation there. He denies any alcohol use. Last used IV drugs on January 27. He last used methadone in November of this year. He states it was helping him. Of note he cur (more content not included)... Normal [facility] HEPATIC FUNCTION PANELon Albumin [Mass/Vol] 4.2 g/dL Normal 3.5-5.0 [facility] Comment on above: Performed By: #### L [id number] ####User Experience Lead: STEPHANIE GONZALES ([id number])[facility] ([facility])[address] [place] [address] ALP [Catalytic activity/Vol] 71 U/L Normal 38-126 [facility] Comment on above: Performed By: #### L AB20 ####User Experience Lead: STEPHANIE THRASHERGumaroSONIA ([id number])[facility] ([facility])[address] ALT [Catalytic activity/Vol] 106 U/L High 0-49 [facility] Comment on above: Performed By: #### L [id number] ####User Experience Lead: STEPHANIE THRASHERJORGE ([id number])[facility] ([facility])[address] AST [Catalytic activity/Vol] 60 U/L High 15-46 [facility] Comment on above: Performed By: #### L [id number] ####User Experience Lead: STEPHANIE JANET ([id number])[facility] ([facility])[address] Bilirubin [Mass/Vol] 0.7 mg/dL Normal 0.2-1.3 [facility] Comment on above: Performed By: #### L [id number] ####User Experience Lead: STEPHANIE MOELLERSONIA ([id number])[facility] ([facility])[address] Bilirubin.indirect [Mass/Vol] 0.0 mg/dL Normal 0.0-0.3 [facility] Comment on above: Performed By: #### L [id number] ####User Experience Lead: STEPHANIE GONZALES ([id number])[facility] ([facility])[address] [place] [address] Protein [Mass/Vol] 7.6 g/dL Normal 6.3-8.2 [facility] Comment on above: Performed By: #### L AB20 ####User Experience Lead: STEPHANIE MOELLERSONIA ([id number])[facility] ([facility])[address] Hepatic function 2000 panelo n 03-06-2023 Albumin [Mass/Vol] 4.2 g/dL 3.5 - 5.0 g/dL [facility] ALP [Catalytic activity/Vol] 71 U/L 38 - 126 U/L [facility] ALT [Catalytic activity/Vol] 106 U/L High 0 - 49 U/L [facility] AST [Catalytic activity/Vol] 60 U/L High 15 - 46 U/L [facility] Bilirubin [Mass/Vol] 0.7 mg/dL 0.2 - 1 .3 mg/dL [facility] Bilirubin.conjugated [Mass/Vol] 0.0 mg/dL 0.0 - 0.3 mg/dL [facility] Interpretation and review of laboratory results Abnormal [facility] Protein [Mass/Vol] 7.6 g/dL 6.3 - 8.2 g/dL [facility] Antinuclear Antibodieson 03-02-2023 Antinuclear Abs, IFA Positive Critically abnormal . [facility] Comment on above: Order Comment: WILIAM nash is gonna try with ultrasound AB 1751 Result Comment: Nega tive <1:80 Borderline 1:80 Positive >1:80 Performed By: #### C MP, SCAN CBC #### [facility] [address] Homogeneous Pattern 1:80 Normal . [facility] Comment on above: Order Comment: WILIAM nash is gonna try with ultrasound AB 1751 Result Comment: ICAP nomenclature: AC-1 Performed By: #### C MP, SCAN CBC #### [facility] [address] [place] [address] [place] Midbody Pattern 1:640 High . [facility] Comment on above: Order Comment: WILIAM nash is gonna try with ultrasound AB 1751 Result Comment: ICAP nomenclature: [id number] Performed By: #### C MP, SCAN CBC #### [facility] [address] [place] [address] [place] Note 1 Normal . [facility] Comment on above: Order Comment: WILIAM nash is gonna try with ultrasound AB 1751 Result Comment: Kristine arnold Potential Disease Association Homogeneous Systemic Lupus Erythematosus, Drug Induced Systemic Lupus Erythematosus, Chronic Autoimmune hepatitis, Juvenile Idiopathic Arthritis Speckled Sjogren Syndrome, Systemic Lupus Erythematosus, Subacute Cutaneous Lupus, Lupus, Congenital Heart Block, Mixed Connective Tissue Disease, Scleroderma-diffuse, Scleroderma-Autoimmune Myositis Overlap Syndrome, Systemic Lupus Dgvetsqcqlpmy-Awpggmjuxyz-Cjeumdkwrn Myositis Overlap Syndrome, Systemic Autoimmune Rheumatic Disease, [...] Cytopenias, Linear Scleroderma, Antiphospholipid Syndrome Performed at: [facility] [address] [id number] Horologist: Ta Norris PhD, Phone: [phone] Performed By: #### C MP, SCAN CBC #### [facility] [address] [place] [address] [facility] Speckled Pattern 1:80 Normal . [facility] Comment on above: Order Comment: WILIAM Gallardo saad is gonna try with ultrasound AB 1751 Result Comment: ICAP nomenclature: [id number],4,5,29 Performed By: #### C MP, SCAN CBC #### [facility] [address] [place] [id number] [place] Vhhdp-3-Qvbcezadegu Phenotyp nadeem 03-02-2023 Alpha 1 Anti-Trypsin 126 mg/dL Normal 101-187 [facility] Comment on above: Order Comment: WILIAM nash is gonna try with ultrasound AB 1751 Performed By: #### C MP, SCAN CBC #### [facility] [address] [place] [address] [facility] Phenotype (P1) MM Normal . [facility] Comment on above: Order Comment: WILIAM [...] Ranges used to confirm phenotype. Performed at: [facility] [address] [id number] Horologist: Ta Norris PhD, Phone: [phone] Performed at: BN - [facility] [address] [id number] Horologist: Alexys Cooper MD, Phone: [phone] Performed By: #### C MP, SCAN CBC #### [address] Ceruloplasminon 03-02-2023 Ceruloplasmin 20.7 mg/dL Normal 16.0-31.0 [facility] Comment on above: Order Comment: Reaso n for Exam Elevated liver enzymes Result Comment: Perf ormed at: - [facility] [address] [id number] Horologist: Ta Norris PhD, Phone: [phone] PERFORMED BY: [place] [address] PATHOLOGIST LIQUOR DEPARTMENT MANAGER CHRISTOPHER CARTER M.D. Performed By: #### H CV RX PCR, HBV PCR, SMAB, HAABT, ALPHA PHEN, HBCAB, HBSAG, MITOM2, CERULOP, HBS AB QUANT, HBSAB, SIGIFREDO, IGG, HCBIGM, HEMOCHROM, L-K MICRO, HAAB #### [facility] , #### LE[place], HEPATIC #### [facility] [address] [place] [address] Ferritinon 03-02-2023 Ferritin [Mass/Vol] 86.4 ng/mL Normal 23.9-336.2 [facility] Comment on above: Order Comment: Reaso n for Exam Elevated liver enzymes Result Comment: PERF ORMED BY: [place] [address] PATHOLOGIST LIQUOR DEPARTMENT MANAGER CHRISTOPHER CARTER M.D. Performed By: #### H CV RX PCR, HBV PCR, SMAB, HAABT, ALPHA PHEN, HBCAB, HBSAG, MITOM2, CERULOP, HBS AB QUANT, HBSAB, SIGIFREDO, IGG, HCBIGM, HEMOCHROM, L-K MICRO, HAAB #### [facility] , #### LEONA, HEPATIC #### [facility] [address] [place] [address] Hep B Real-Time PCR, Quanton 03-02-2023 HBV As IU/mL <10 Normal . [facility] Comment on above: Order Comment: Reaso n for Exam Elevated liver enzymes Result Comment: HBV DNA detected Performed By: #### H CV RX PCR, HBV PCR, SMAB, HAABT, ALPHA PHEN, HBCAB, HBSAG, MITOM2, CERULOP, HBS AB QUANT, HBSAB, SIGIFREDO, IGG, HCBIGM, HEMOCHROM, L-K MICRO, HAAB #### [facility] , #### LEONA, HEPATIC #### [facility] [address] Log10 HBV (As IU/mL) Normal . [facility] Comment on above: Order [...] #### [facility] , #### LE[place], HEPATIC #### [facility] [address] Test Information: Normal . [facility] Comment on above: Order Comment: Reaso n for Exam Elevated liver enzymes Result Comment: The reportable range for this assay is 10 IU/mL to 1 billion IU/mL. Performed at: - [facility] [id number] Horologist: Alexys Cooper MD, Phone: [phone] PERFORMED BY: [place] [address] PATHOLOGIST LIQUOR DEPARTMENT MANAGER CHRISTOPHER CARTER M.D. Performed By: #### H CV RX PCR, HBV PCR, SMAB, HAABT, ALPHA PHEN, HBCAB, HBSAG, MITOM2, CERULOP, HBS AB QUANT, HBSAB, SIGIFREDO, IGG, HCBIGM, HEMOCHROM, L-K MICRO, HAAB #### [facility] , #### LE[place], HEPATIC #### [facility] [address] Result Comment: The quantitative range of this assay is 15 IU/mL to 100 million IU/mL. Hep C Ab wRfx to Qnt PCRon 0 03-02-2023 HCV Log10 3.344 Normal . [facility] Comment on above: Order Comment: Reaso n for Exam Elevated liver enzymes Result Comment: Resu lt Units: log10 IU/mL Performed By: #### H CV RX PCR, HBV PCR, SMAB, HAABT, ALPHA PHEN, HBCAB, HBSAG, MITOM2, CERULOP, HBS AB QUANT, HBSAB, SIGIFREDO, IGG, HCBIGM, HEMOCHROM, L-K MICRO, HAAB #### [facility] , #### [place], HEPATIC #### [facility] [address] Hepatitis C Quantitation 2210 Normal . [facility] Comment on above: Order Comment: Reaso n for Exam Elevated liver enzymes Performed By: #### H CV RX PCR, HBV PCR, SMAB, HAABT, ALPHA PHEN, HBCAB, HBSAG, MITOM2, CERULOP, HBS AB QUANT, HBSAB, SIGIFREDO, IGG, HCBIGM, HEMOCHROM, L-K MICRO, HAAB #### [facility] , #### [place], HEPATIC #### [address] Hepatitis C Virus Antibody Reactive Critically abnormal Non Reactive [facility] Comment on above: Order Comment: Reaso n for Exam Elevated liver enzymes Performed By: #### H CV RX PCR, HBV PCR, SMAB, HAABT, ALPHA PHEN, HBCAB, HBSAG, MITOM2, CERULOP, HBS AB QUANT, HBSAB, SIGIFREDO, IGG, HCBIGM, HEMOCHROM, L-K MICRO, HAAB #### [facility] , #### [place], HEPATIC #### [address] Interpretation Normal . [facility] Comment on above: Order Comment: Reaso n for Exam Elevated liver enzymes Result Comment: Posi tive HCV antibody screen with the presence of HCV RNA is consistent with active infection. Performed at: - [address] [id number] Horologist: Ta Norris PhD, Phone: [phone] Performed at: - [facility] [id number] Horologist: Alexys Cooper MD, Phone: [phone] Performed By: #### H CV RX PCR, HBV PCR, SMAB, HAABT, ALPHA PHEN, HBCAB, HBSAG, MITOM2, CERULOP, HBS AB QUANT, HBSAB, SIGIFREDO, IGG, HCBIGM, HEMOCHROM, L-K MICRO, HAAB #### [facility] , #### LEONA, HEPATIC #### [facility] [address] Hepatic Panelon 03-02-2023 Albumin [Mass/Vol] 4.5 g/dL Normal 3.5-5.7 [facility] Comment on above: Order Comment: Reaso n for Exam Elevated liver enzymes Performed By: #### H CV RX PCR, HBV PCR, SMAB, HAABT, ALPHA PHEN, HBCAB, HBSAG, MITOM2, CERULOP, HBS AB QUANT, HBSAB, SIGIFREDO, IGG, HCBIGM, HEMOCHROM, L-K MICRO, HAAB #### [facility] , #### LE[place], HEPATIC #### [facility] [address] [place] [address] Albumin/Globulin [Mass ratio] 1.5 {ratio} Normal [facility] Comment on above: Order Comment: Reaso n for Exam Elevated liver enzymes Performed By: #### H CV RX PCR, HBV PCR, SMAB, HAABT, ALPHA PHEN, HBCAB, HBSAG, MITOM2, CERULOP, HBS AB QUANT, HBSAB, SIGIFREDO, IGG, HCBIGM, HEMOCHROM, L-K MICRO, HAAB #### [facility] , #### LE[place], HEPATIC #### [facility] [address] ALP [Catalytic activity/Vol] 84 U/L Normal 34-104 [facility] Comment on above: Order Comment: Reaso n for Exam Elevated liver enzymes Performed By: #### H CV RX PCR, HBV PCR, SMAB, HAABT, ALPHA PHEN, HBCAB, HBSAG, MITOM2, CERULOP, HBS AB QUANT, HBSAB, SIGIFREDO, IGG, HCBIGM, HEMOCHROM, L-K MICRO, HAAB #### [facility] , #### LE[place], HEPATIC #### [facility] [address] [place], [place] [id number] [place] ALT [Catalytic activity/Vol] 78 U/L High 7-52 [facility] Comment on above: Order Comment: Reaso n for Exam Elevated liver enzymes Performed By: #### H CV RX PCR, HBV PCR, SMAB, HAABT, ALPHA PHEN, HBCAB, HBSAG, MITOM2, CERULOP, HBS AB QUANT, HBSAB, SIGIFREDO, IGG, HCBIGM, HEMOCHROM, L-K MICRO, HAAB #### [facility] , #### LEONA, HEPATIC #### [facility] [address] [place] [address] [place] AST [Catalytic activity/Vol] 46 U/L High 13-39 [facility] Comment on above: Order Comment: Reaso n for Exam Elevated liver enzymes Performed By: #### H CV RX PCR, HBV PCR, SMAB, HAABT, ALPHA PHEN, HBCAB, HBSAG, MITOM2, CERULOP, HBS AB QUANT, HBSAB, SIGIFREDO, IGG, HCBIGM, HEMOCHROM, L-K MICRO, HAAB #### [facility] , #### LEONA, HEPATIC #### [facility] [address] [place] [address] [place] Bilirubin [Mass/Vol] 0.5 mg/dL Normal 0.3-1.0 [facility] Comment on above: Order Comment: Reaso n for Exam Elevated liver enzymes Performed By: #### H CV RX PCR, HBV PCR, SMAB, HAABT, ALPHA PHEN, HBCAB, HBSAG, MITOM2, CERULOP, HBS AB QUANT, HBSAB, SIGIFREDO, IGG, HCBIGM, HEMOCHROM, L-K MICRO, HAAB #### [facility] , #### [place], HEPATIC #### [address] Bilirubin,Indirect 0.3 mg/dL Normal [facility] Comment on above: Order Comment: Reaso n for Exam Elevated liver enzymes Performed By: #### H CV RX PCR, HBV PCR, SMAB, HAABT, ALPHA PHEN, HBCAB, HBSAG, MITOM2, CERULOP, HBS AB QUANT, HBSAB, SIGIFREDO, IGG, HCBIGM, HEMOCHROM, L-K MICRO, HAAB #### [facility] , #### [place], HEPATIC #### [address] Bilirubin.indirect [Mass/Vol] 0.20 mg/dL High 0.03-0.18 [facility] Comment on above: Order Comment: Reaso n for Exam Elevated liver enzymes Performed By: #### H CV RX PCR, HBV PCR, SMAB, HAABT, ALPHA PHEN, HBCAB, HBSAG, MITOM2, CERULOP, HBS AB QUANT, HBSAB, SIGIFREDO, IGG, HCBIGM, HEMOCHROM, L-K MICRO, HAAB #### [facility] , #### [place], HEPATIC #### [address] Globulin (S) [Mass/Vol] 3.0 g/dL Normal [facility] Comment on above: Order Comment: Reaso n for Exam Elevated liver enzymes Performed By: #### H CV RX PCR, HBV PCR, SMAB, HAABT, ALPHA PHEN, HBCAB, HBSAG, MITOM2, CERULOP, HBS AB QUANT, HBSAB, SIGIFREDO, IGG, HCBIGM, HEMOCHROM, L-K MICRO, HAAB #### [facility] , #### LE[place], HEPATIC #### [place] [address] [place] Protein [Mass/Vol] 7.5 g/dL Normal 6.4-8.9 [facility] Comment on above: Order Comment: Reaso n for Exam Elevated liver enzymes Performed By: #### H CV RX PCR, HBV PCR, SMAB, HAABT, ALPHA PHEN, HBCAB, HBSAG, MITOM2, CERULOP, HBS AB QUANT, HBSAB, SIGIFREDO, IGG, HCBIGM, HEMOCHROM, L-K MICRO, HAAB #### [facility] , #### LE[place], HEPATIC #### [facility] [address] Hepatitis A Antibody IgMon 0 03-02-2023 Hepatitis A Antibody IgM Negative Normal Negative [facility] Comment on above: Order Comment: Reaso n for Exam Elevated liver enzymes Performed By: #### H CV RX PCR, HBV PCR, SMAB, HAABT, ALPHA PHEN, HBCAB, HBSAG, MITOM2, CERULOP, HBS AB QUANT, HBSAB, SIGIFREDO, IGG, HCBIGM, HEMOCHROM, L-K MICRO, HAAB #### [facility] , #### [place], HEPATIC #### [facility] [address] Hepatitis A Antibody Totalon 03-02-2023 Hepatitis A Antibody Total Negative Normal Negative [facility] Comment on above: Order Comment: Reaso [...] total antibody results to IgM (e.g., panel #[id number] HAV Antibody w/ Rfx). Performed By: #### H CV RX PCR, HBV PCR, SMAB, HAABT, ALPHA PHEN, HBCAB, HBSAG, MITOM2, CERULOP, HBS AB QUANT, HBSAB, SIGIFREDO, IGG, HCBIGM, HEMOCHROM, L-K MICRO, HAAB #### [facility] , #### LEONA, HEPATIC #### [facility] [address] [place] [address] Hepatitis B Core Antibodyon 03-02-2023 Hepatitis B Core Antibody Positive Critically abnormal Negative [facility] Comment on above: Order Comment: WILIAM nash is gonna try with ultrasound AB 1751 Performed By: #### C MP, SCAN CBC #### [facility] [address] [place] [address] Hepatitis B Core Antibody Ig Mon 03-02-2023 Hepatitis B Core Antibody IgM Negative Normal Negative [facility] Comment on above: Order Comment: Reaso n for Exam Elevated liver enzymes Result Comment: Perf ormed at: - [facility] [place] [id number] Horologist: Ta Norris PhD, Phone: [phone] Performed By: #### H CV RX PCR, HBV PCR, SMAB, HAABT, ALPHA PHEN, HBCAB, HBSAG, MITOM2, CERULOP, HBS AB QUANT, HBSAB, SIGIFREDO, IGG, HCBIGM, HEMOCHROM, L-K MICRO, HAAB #### [facility] , #### [place], HEPATIC #### [facility] [address] [place] [address] Hepatitis B Surface Ab, Khanh ton 03-02-2023 Hepatitis B Surface Ab, Quant <3.1 Low Immunity>9.9 [facility] Comment on above: Order Comment: WILIAM nash is gonna try with ultrasound AB 1751 Result Comment: Stat us of Immunity Anti-HBs Level Inconsistent with Immunity 0.0 - 9.9 Consistent with Immunity >9.9 PERFORMED BY: [place] [address] PATHOLOGIST LIQUOR DEPARTMENT MANAGER CHRISTOPHER CATRER M.D. Performed By: #### C MP, SCAN CBC #### [facility] [address] [place] [address] Hepatitis B Surface Antibody on 03-02-2023 Hepatitis B Surface Antibody Non-Reactive Normal . [facility] Comment on above: Order Comment: WILIAM Gallardo saad is gonna try with ultrasound AB 1751 Result Comment: Non Reactive: Inconsistent with immunity, less than 10 mIU/mL Reactive: Consistent with immunity, greater than 9.9 mIU/mL Performed By: #### C MP, SCAN CBC #### [facility] [address] [place] [id number] [facility] Hepatitis B Surface Antigeno n 03-02-2023 HBsAg Screen Positive Critically abnormal Negative [facility] Comment on above: Order Comment: WILIAM Gallardo saad is gonna try with ultrasound AB 1751 Result Comment: Posi tive HBsAg verified by algorithm coupled with screening index. Performed By: #### C MP, SCAN CBC #### [facility] [address] Hereditary Hemochromatosis,D NAon 03-02-2023 Hereditary Hemochromatosis Normal . [facility] Comment on above: Order Comment: Reaso n for Exam Elevated liver enzymes Result Comment: Resu lt: c.845G>A (p.Yhg400Rqi) - Not Detected c.187C>G (p.Yuj60Oov) - Not Detected c.193A>T (p.Zsw55Uhd) - Not Detected Not associated with increased [...] for patients who are homozygous for c.845G>A (p.Xli986Uuk) and have yet to experience clinical symptoms. Comments: The most common HFE variants associated with hereditary hemochromatosis are c.845G>A (p.Irg611Tuv), c.187C>G (p.Mcy20Vxr), c.193A>T (p.Vvy93Dcs). While patients homozygous for c.845G>A (p.Afp819Ili) are the most likely to present clinical symptoms, less than 10% develop clinically significant iron overload with tissue and organ damage. Genetic counseling is recommended to discuss the potential clinical implications of positive results, as well as recommendations for testing family members. Genetic Coordinators are available for health care providers to discuss results at [phone] Test Details: Three variants analyzed: c.845G>A (p.Ild709Ssx), commonly referred to as C282Y c.187C>G (p.Bzy89Niy), commonly referred to as H63D c.193A>T (p.Wmi66Yrp), commonly referred to as S65C Methods/Limitations: DNA [...] developed and its performance characteristics determined by [employer]. It has not been cleared or approved by the Food and Drug Administration. References: Ken BR, Heber PC, Aidan KV, Chidi LW, Joseph ; [employer] Liver [employer]. Diagnosis and management of hemochromatosis: 2011 practice guideline by the [employer] Liver [employer]. Hepatology. 2011 Aug;54(1):328-43. doi: 10.1002/hep.25561. PMID: 63672626; PMCID: NCV0753514. Renetta G, Thaila P, [place] MEIER, Patricia H, Candy O, Joe S, Elias I, Markos M, Saskia S. EMQN best practice guidelines for the molecular genetic diagnosis of hereditary hemochromatosis (HH). Eur J Hum Sia. 2016 May;24(4):479-95. doi: 10.1038/ejhg.2015.128. Epub 2014Sep 05. PMID: 99019228; PMCID: [id number]. Performed By: #### H CV RX PCR, HBV PCR, SMAB, HAABT, ALPHA PHEN, HBCAB, HBSAG, MITOM2, CERULOP, HBS AB QUANT, HBSAB, SIGIFREDO, IGG, HCBIGM, HEMOCHROM, L-K MICRO, HAAB #### [facility] , #### [place], HEPATIC #### [address] Reviewed by: Normal . [facility] Comment on above: Order Comment: Reaso n for Exam Elevated liver enzymes Result Comment: Daisha Hwang, Ph.D., FACMG Performed at: [facility] [address] [place], [place] [id number] Horologist: Tato Foreman [facility], Phone: [phone] PERFORMED BY: [place] [address] PATHOLOGIST LIQUOR DEPARTMENT MANAGER CHRISTOPHER CARTER M.D. Performed By: #### H CV RX PCR, HBV PCR, SMAB, HAABT, ALPHA PHEN, HBCAB, HBSAG, MITOM2, CERULOP, HBS AB QUANT, HBSAB, SIGIFREDO, IGG, HCBIGM, HEMOCHROM, L-K MICRO, HAAB #### [facility] , #### LEONA, HEPATIC #### [facility] [address] [place] [address] Immunoglobulin Dawit Immunoglobulin G 1279 mg/dL Normal 603-4423 [facility] Comment on above: Order Comment: WILIAM nash is gonna try with ultrasound AB 1751 Result Comment: Perf ormed at: - [address] [id number] Horologist: Ta Norris PhD, Phone: [phone] Performed By: #### C MP, SCAN CBC #### [address] Liver-Kidney Microsomal Abon 03-02-2023 Liver-Kidney Microsomal Ab 1.2 Normal 0.0-20.0 [facility] Comment on above: Order Comment: WILIAM nash is gonna try with ultrasound AB 1751 Result Comment: Nega tive 0.0 - 20.0 Equivocal 20.1 - 24.9 Positive >24.9 LKM type 1 antibodies are detected in patients with autoimmune hepatitis type 2 and in up to 8% of patients with chronic HCV infection. Performed at: [address] [id number] Horologist: Ta Norris PhD, Phone: [phone] Performed By: #### C MP, SCAN CBC #### [address] Mitochondrial (M2) Antibodyo n 03-02-2023 Mitochondrial (M2) Antibody <20.0 Normal 0.0-20.0 [facility] Comment on above: Order Comment: WILIAM nash is gonna try with ultrasound AB 1751 Result Comment: Nega tive 0.0 - 20.0 Equivocal 20.1 - 24.9 Positive >24.9 Mitochondrial (M2) Antibodies are found in 90-96% of patients with primary biliary cirrhosis. Performed By: #### C MP, SCAN CBC #### [place] [address] [place] Smooth Muscle Antibodyon Smooth Muscle Antibody 8 Normal 0-19 [facility] Comment on above: Order Comment: WILIAM [...] By: #### C MP, SCAN CBC #### [facility] [address] [place] [address] [place] Alanine aminotransferase [En zymatic activity/volume] in Serum or PlasmaOrdered By: Mckenzie Cherry on 02-16-2023 ALT [Catalytic activity/Vol] 747 U/L [facility] Albumin [Mass/volume] in Ser um or Plasma by Bromocresol green (BCG) dye binding methoOrdered By: Mckenzie Cherry on 02-16-2023 Albumin BCG dye [Mass/Vol] 4.7 g/dL 3.5-5.7 [facility] Alkaline phosphatase [Enzyma tic activity/volume] in Serum or PlasmaOrdered By: Mckenzie Cherry on 02-16-2023 ALP [Catalytic activity/Vol] 231 U/L 34-104 [facility] Anisocytosis LM Ql (Bld)Orde red By: Mckenzie Cherry on 02-16-2023 Anisocytosis Ql (Bld) Slight Fir [facility] Aspartate aminotransferase [ Enzymatic activity/volume] in Serum or PlasmaOrdered By: Mckenzie Cherry on 02-16-2023 AST [Catalytic activity/Vol] 301 U/L 13-39 [facility] Automated erythrocytes count in urine sediment (number/area)Ordered By: Mckenzie Cherry on 02-16-2023 RBC Auto (Urine sed) [#/Area] 0-1 [HPF] 0-4 [facility] Automated leukocytes count i n urine sediment (number/area)Ordered By: Mckenzie Cherry on 02-16-2023 WBC Auto (Urine sed) [#/Area] 3-4 [HPF] 0-4 [facility] Basophils Auto (Bld) [#/Vol] Ordered By: Mckenzie Cherry on 02-16-2023 Basophils (Bld) [#/Vol] 0.2 10*3/uL 0.0-0.2 [facility] Basophils/100 WBC Auto (Bld) Ordered By: Mckenzie Cherry on 02-16-2023 Basophils/100 WBC (Bld) 3.1 % . [facility] Bilirubin Test strip Ql (U)O rdered By: Mckenzie Cherry on 02-16-2023 Bilirubin Ql (U) Negative Negative [facility] Bilirubin.total [Mass/volume ] in Serum or PlasmaOrdered By: Mckenzie Cherry on 02-16-2023 Bilirubin [Mass/Vol] 1.5 mg/dL 0.3-1.0 [facility] Comment on above: Samples from patient s who have taken Naproxen have shown spurious elevation in Total Bilirubin levels. A metabolite of Naproxen, O-desmethylnaproxen, has been shown to interfere with the Juan-Elvia method for measuring Total Bilirubin. Calcium [Mass/volume] in Ser um or PlasmaOrdered By: Mckenzie Cherry on 02-16-2023 Calcium [Mass/Vol] 9.7 mg/dL 8.6-10.3 [facility] Carbon dioxide, total [Moles /volume] in Serum or PlasmaOrdered By: Mckenzie Cherry on 02-16-2023 CO2 [Moles/Vol] 28.3 mmol/L 21.0-31.0 [facility] Chloride [Moles/volume] in S pilar or PlasmaOrdered By: Mckenzie Cherry on 02-16-2023 Chloride [Moles/Vol] 100 mmol/L 98-107 [facility] Color Auto (U)Ordered By: Alisa Cherry on 02-16-2023 Color (U) Yellow Yellow [facility] Comprehensive Metabolic Pane haroldo 02-16-2023 Albumin [Mass/Vol] 4.7 g/dL Normal 3.5-5.7 [facility] Comment on above: Performed By: #### C MP, SCAN CBC #### [facility] [address] Albumin/Globulin [Mass ratio] 1.2 {ratio} Normal [facility] Comment on above: Performed By: #### C MP, SCAN CBC #### [facility] [address] [place] [id number] [place] ALP [Catalytic activity/Vol] 231 U/L High 34-104 [facility] Comment on above: Performed By: #### C MP, SCAN CBC #### [facility] [address] [place] [address] [place] ALT [Catalytic activity/Vol] 747 U/L High 7-52 [facility] Comment on above: Performed By: #### C MP, SCAN CBC #### [facility] [address] [place] [address] [facility] Anion gap [Moles/Vol] 12.4 mmol/L Normal 6.0-15.0 [facility] Comment on above: Performed By: #### C MP, SCAN CBC #### [facility] [address] [place] [address] [place] AST [Catalytic activity/Vol] 301 U/L High 13-39 [facility] Comment on above: Performed By: #### C MP, SCAN CBC #### [facility] [address] [place] [address] [place] Bilirubin [Mass/Vol] 1.5 mg/dL High 0.3-1.0 [facility] Comment on above: Result Comment: Samp les from patients who have taken Naproxen have shown spurious elevation in Total Bilirubin levels. A metabolite of Naproxen, O-desmethylnaproxen, has been shown to interfere with the Jendrusamaik-Grof method for measuring Total Bilirubin. Performed By: #### C MP, SCAN CBC #### [facility] [address] Calcium [Mass/Vol] 9.7 mg/dL Normal 8.6-10.3 [facility] Comment on above: Performed By: #### C MP, SCAN CBC #### [facility] [address] [place] [address] [place] Chloride [Moles/Vol] 100 mmol/L Normal 98-107 [facility] Comment on above: Performed By: #### C MP, SCAN CBC #### [facility] [address] CO2 [Moles/Vol] 28.3 mmol/L Normal 21.0-31.0 [facility] Comment on above: Performed By: #### C MP, SCAN CBC #### [facility] [address] [place] [address] [place] Creatinine [Mass/Vol] 0.73 mg/dL Normal 0.70-1.30 [facility] Comment on above: Performed By: #### C MP, SCAN CBC #### [facility] [address] [place] [address] [place] Creatinine Clr Calc Pharmacy 125.02 Normal [facility] Comment on above: Result Comment: PERF ORMED BY: [facility] [address] [place] [address] PATHOLOGIST LIQUOR DEPARTMENT MANAGER CHRISTOPHER CARTER M.D. Performed By: #### C MP, SCAN CBC #### [facility] [address] [place] [address] [place] GFR/1.73 sq M.predicted MDRD (S/P/Bld) [Vol rate/Area] mL/min/{1.73_m2} Normal [facility] Comment on above: Performed By: #### C MP, SCAN CBC #### [facility] [address] [place] [address] [place] Globulin (S) [Mass/Vol] 3.9 g/dL Normal F [facility] Comment on above: Performed By: #### C MP, SCAN CBC #### [address] Glucose [Mass/Vol] 89 mg/dL Normal 70-100 [facility] Comment on above: Result Comment: [facility] Glucose Reference Range is dependent on time and content of last meal. Glucose of more than 200 mg/dL in a nonstressed, ambulatory subject supports the diagnosis of Diabetes Mellitus. ADA recommended reference range Performed By: #### C MP, SCAN CBC #### [facility] [address] [place] [address] [place] Potassium [Moles/Vol] 4.7 mmol/L Normal 3.5-5.1 [facility] Comment on above: Performed By: #### C MP, SCAN CBC #### [facility] [address] [place] [address] [place] Protein [Mass/Vol] 8.6 g/dL Normal 6.4-8.9 [facility] Comment on above: Performed By: #### C MP, SCAN CBC #### [facility] [address] [place] [address] [place] Sodium [Moles/Vol] 136 mmol/L Normal 136-145 [facility] Comment on above: Performed By: #### C MP, SCAN CBC #### [facility] [address] [place] [address] [place] Urea nitrogen [Mass/Vol] 16 mg/dL Normal 7-25 [facility] Comment on above: Performed By: #### C MP, SCAN CBC #### [facility] [address] Creatinine [Mass/volume] in Serum or PlasmaOrdered By: Mckenzie Cherry on 02-16-2023 Creatinine [Mass/Vol] 0.73 mg/dL 0.70-1.30 [facility] Dipstick and Microscopicon 1 04-19-2022 Appearance (U) Clear Normal Clear [facility] Comment on above: Order Comment: Reaso n for Exam Elevated liver enzymes Performed By: #### H CV RX PCR, HBV PCR, SMAB, HAABT, ALPHA PHEN, HBCAB, HBSAG, MITOM2, CERULOP, HBS AB QUANT, HBSAB, SIGIFREDO, IGG, HCBIGM, HEMOCHROM, L-K MICRO, HAAB #### [facility] , #### [place], HEPATIC #### [facility] [address] [place] [address] Bacteria,Urine None Seen Normal None Seen [facility] Comment on above: Order Comment: Reaso n for Exam Elevated liver enzymes Performed By: #### H CV RX PCR, HBV PCR, SMAB, HAABT, ALPHA PHEN, HBCAB, HBSAG, MITOM2, CERULOP, HBS AB QUANT, HBSAB, SIGIFREDO, IGG, HCBIGM, HEMOCHROM, L-K MICRO, HAAB #### [facility] , #### [place], HEPATIC #### [facility] [address] [place] [address] [place] Bilirubin,Urine Negative Normal Negative [facility] Comment on above: Order Comment: Reaso n for Exam Elevated liver enzymes Performed By: #### H CV RX PCR, HBV PCR, SMAB, HAABT, ALPHA PHEN, HBCAB, HBSAG, MITOM2, CERULOP, HBS AB QUANT, HBSAB, SIGIFREDO, IGG, HCBIGM, HEMOCHROM, L-K MICRO, HAAB #### [facility] , #### [place], HEPATIC #### [facility] [address] Color (U) Yellow Normal Yellow [facility] Comment on above: Order Comment: Reaso n for Exam Elevated liver enzymes Performed By: #### H CV RX PCR, HBV PCR, SMAB, HAABT, ALPHA PHEN, HBCAB, HBSAG, MITOM2, CERULOP, HBS AB QUANT, HBSAB, SIGIFREDO, IGG, HCBIGM, HEMOCHROM, L-K MICRO, HAAB #### [facility] , #### [place], HEPATIC #### [facility] [address] Glucose Ql (U) Normal Normal Normal [facility] Comment on above: Order Comment: Reaso n for Exam Elevated liver enzymes Performed By: #### H CV RX PCR, HBV PCR, SMAB, HAABT, ALPHA PHEN, HBCAB, HBSAG, MITOM2, CERULOP, HBS AB QUANT, HBSAB, SIGIFREDO, IGG, HCBIGM, HEMOCHROM, L-K MICRO, HAAB #### [facility] , #### [place], HEPATIC #### [facility] [address] [place] [address] Hyaline Casts,Urine None Seen Normal 0-8 [facility] Comment on above: Order Comment: Reaso n for Exam Elevated liver enzymes Result Comment: PERF ORMED BY: [place] [address] PATHOLOGIST LIQUOR DEPARTMENT MANAGER CHRISTOPHER CARTER M.D. Performed By: #### H CV RX PCR, HBV PCR, SMAB, HAABT, ALPHA PHEN, HBCAB, HBSAG, MITOM2, CERULOP, HBS AB QUANT, HBSAB, SIGIFREDO, IGG, HCBIGM, HEMOCHROM, L-K MICRO, HAAB #### [facility] , #### [place], HEPATIC #### [facility] [address] Ketones Ql (U) Negative Normal Negative [facility] Comment on above: Order Comment: Reaso n for Exam Elevated liver enzymes Performed By: #### H CV RX PCR, HBV PCR, SMAB, HAABT, ALPHA PHEN, HBCAB, HBSAG, MITOM2, CERULOP, HBS AB QUANT, HBSAB, SIGIFREDO, IGG, HCBIGM, HEMOCHROM, L-K MICRO, HAAB #### [facility] , #### [place], HEPATIC #### [address] Leukocyte esterase Test strip Ql (U) 1+ High Negative [facility] Comment on above: Order Comment: Reaso n for Exam Elevated liver enzymes Performed By: #### H CV RX PCR, HBV PCR, SMAB, HAABT, ALPHA PHEN, HBCAB, HBSAG, MITOM2, CERULOP, HBS AB QUANT, HBSAB, SIGIFREDO, IGG, HCBIGM, HEMOCHROM, L-K MICRO, HAAB #### [facility] , #### [place], HEPATIC #### [address] Nitrite,Urine Negative Normal Negative [facility] Comment on above: Order Comment: Reaso n for Exam Elevated liver enzymes Performed By: #### H CV RX PCR, HBV PCR, SMAB, HAABT, ALPHA PHEN, HBCAB, HBSAG, MITOM2, CERULOP, HBS AB QUANT, HBSAB, SIGIFREDO, IGG, HCBIGM, HEMOCHROM, L-K MICRO, HAAB #### [facility] , #### [place], HEPATIC #### [address] Occult Blood,Urine Negative Normal Negative [facility] Comment on above: Order Comment: Reaso n for Exam Elevated liver enzymes Result Comment: PERF ORMED BY: [place] [address] PATHOLOGIST LIQUOR DEPARTMENT MANAGER CHRISTOPHER CARTER M.D. Performed By: #### H CV RX PCR, HBV PCR, SMAB, HAABT, ALPHA PHEN, HBCAB, HBSAG, MITOM2, CERULOP, HBS AB QUANT, HBSAB, SIGIFREDO, IGG, HCBIGM, HEMOCHROM, L-K MICRO, HAAB #### [facility] , #### [place], HEPATIC #### [facility] [address] pH (U) 7.5 [pH] Normal 5.0-9.0 [facility] Comment on above: Order Comment: Reaso n for Exam Elevated liver enzymes Performed By: #### H CV RX PCR, HBV PCR, SMAB, HAABT, ALPHA PHEN, HBCAB, HBSAG, MITOM2, CERULOP, HBS AB QUANT, HBSAB, SIGIFREDO, IGG, HCBIGM, HEMOCHROM, L-K MICRO, HAAB #### [facility] , #### [place], HEPATIC #### [facility] [address] [place] [address] Protein,Urine Negative Normal Negative [facility] Comment on above: Order Comment: Reaso n for Exam Elevated liver enzymes Performed By: #### H CV RX PCR, HBV PCR, SMAB, HAABT, ALPHA PHEN, HBCAB, HBSAG, MITOM2, CERULOP, HBS AB QUANT, HBSAB, SIGIFREDO, IGG, HCBIGM, HEMOCHROM, L-K MICRO, HAAB #### [facility] , #### [place], HEPATIC #### [facility] [address] [place] [address] RBC LM.HPF (Urine sed) [#/Area] 0 /[HPF] Normal 0-4 [facility] Comment on above: Order Comment: Reaso n for Exam Elevated liver enzymes Performed By: #### H CV RX PCR, HBV PCR, SMAB, HAABT, ALPHA PHEN, HBCAB, HBSAG, MITOM2, CERULOP, HBS AB QUANT, HBSAB, SIGIFREDO, IGG, HCBIGM, HEMOCHROM, L-K MICRO, HAAB #### [facility] , #### [place], HEPATIC #### [facility] [address] [place] [address] Specificy [place],Urine 1.017 Normal 1.001-1.030 [facility] Comment on above: Order Comment: Reaso n for Exam Elevated liver enzymes Performed By: #### H CV RX PCR, HBV PCR, SMAB, HAABT, ALPHA PHEN, HBCAB, HBSAG, MITOM2, CERULOP, HBS AB QUANT, HBSAB, SIGIFREDO, IGG, HCBIGM, HEMOCHROM, L-K MICRO, HAAB #### [facility] , #### [place], HEPATIC #### [address] Squamous Epithelial Cell,Urine 0-1 Normal 0-2 [facility] Comment on above: Order Comment: Reaso n for Exam Elevated liver enzymes Performed By: #### H CV RX PCR, HBV PCR, SMAB, HAABT, ALPHA PHEN, HBCAB, HBSAG, MITOM2, CERULOP, HBS AB QUANT, HBSAB, SIGIFREDO, IGG, HCBIGM, HEMOCHROM, L-K MICRO, HAAB #### [facility] , #### [place], HEPATIC #### [address] Urobilinogen,Urine Normal Normal Normal [facility] Comment on above: Order Comment: Reaso n for Exam Elevated liver enzymes Performed By: #### H CV RX PCR, HBV PCR, SMAB, HAABT, ALPHA PHEN, HBCAB, HBSAG, MITOM2, CERULOP, HBS AB QUANT, HBSAB, SIGIFREDO, IGG, HCBIGM, HEMOCHROM, L-K MICRO, HAAB #### [facility] , #### [place], HEPATIC #### [address] WBC,Urine 3-4 Normal 0-4 [facility] Comment on above: Order Comment: Reaso n for Exam Elevated liver enzymes Performed By: #### H CV RX PCR, HBV PCR, SMAB, HAABT, ALPHA PHEN, HBCAB, HBSAG, MITOM2, CERULOP, HBS AB QUANT, HBSAB, SIGIFREDO, IGG, HCBIGM, HEMOCHROM, L-K MICRO, HAAB #### [facility] , #### [place], HEPATIC #### [address] Eosinophils Auto (Bld) [#/Vo l]Ordered By: Mckenzie Cherry on 02-16-2023 Eosinophils (Bld) [#/Vol] 0.1 10*3/uL 0.0-0.45 [facility] Eosinophils/100 WBC Auto (Bl d)Ordered By: Mckenzie Cherry on 02-16-2023 Eosinophils/100 WBC (Bld) 1.5 % . [facility] Erythrocyte distribution wid th Auto (RBC) [Ratio]Ordered By: Mckenzie Cherry on 02-16-2023 Erythrocyte distribution width (RBC) [Ratio] 15.7 % 12.0-14.8 [facility] Globulin Calc (S) [Mass/Vol] Ordered By: Mckenzie Cherry on 02-16-2023 Globulin (S) [Mass/Vol] 3.9 g/dL [facility] Glucose [Mass/volume] in Ser um or PlasmaOrdered By: Mckenzie Cherry on 02-16-2023 Glucose [Mass/Vol] 89 mg/dL 70-100 [facility] Comment on above: ADA recommended refe rence rangeRandom Glucose Reference Range is dependent on time and content of last meal. Glucose of more than 200 mg/dL in a nonstressed, ambulatory subject supports the diagnosis of Diabetes Mellitus. Hematocrit Auto (Bld) [Volum e fraction]Ordered By: Mckenzie Cherry on 02-16-2023 Hematocrit (Bld) [Volume fraction] 45.5 % 38.8-50.0 [facility] Hemoglobin [Mass/volume] in BloodOrdered By: Mckenzie Cherry on 02-16-2023 Hemoglobin (Bld) [Mass/Vol] 14.9 g/dL 13.0-17.0 [facility] Ketones Auto test strip (U) [Mass/Vol]Ordered By: Mckenzie Cherry on 02-16-2023 Ketones (U) [Mass/Vol] Negative Negative [facility] - UrinalysisOrder ed By: Mckenzie Cherry on 02-16-2023 Hyaline casts LM Ql (Urine sed) None seen [LPF] 0-8 [facility] Leukocytes [#/volume] correc paul for nucleated erythrocytes in Blood by Automated counOrdered By: Mckenzie Cherry on 02-16-2023 WBC corrected for nucl RBC Auto (Bld) [#/Vol] 7.9 10*3/uL 4.1-10.5 [facility] Lymphocytes Auto (Bld) [#/Vo l]Ordered By: Mckenzie Cherry on 02-16-2023 Lymphocytes (Bld) [#/Vol] 2.6 10*3/uL 1.00-4.8 [facility] Lymphocytes/100 WBC Auto (Bl d)Ordered By: Mckenzie Cherry on 02-16-2023 Lymphocytes/100 WBC (Bld) 33.3 % . [facility] MCH Auto (RBC) [Entitic mass ]Ordered By: Mckenzie Cherry on 02-16-2023 MCH (RBC) [Entitic mass] 27.2 pg 27.5-35.2 [facility] MCHC Auto (RBC) [Mass/Vol]Or dered By: Mckenzie Cherry on 02-16-2023 MCHC (RBC) [Mass/Vol] 32.8 g/dL 32.5-35.6 [facility] MCV Auto (RBC) [Entitic vol] Ordered By: Mckenzie Cherry on 02-16-2023 MCV (RBC) [Entitic vol] 82.9 fL 83.5-101 [facility] Monocyte distribution width [Entitic volume] in Blood by AutomatedOrdered By: Mckenzie Cherry on 02-16-2023 Monocyte distribution width Auto (Bld) [Entitic vol] 19.77 % 0.00-20.00 [facility] Comment on above: For adults in ED, MD W > 20.0 may be associated with a higher risk of sepsis during the first 12 hrs of hospital admission Monocytes Auto (Bld) [#/Vol] Ordered By: Mckenzie Cherry on 02-16-2023 Monocytes (Bld) [#/Vol] 0.3 10*3/uL 0.0-0.8 [facility] Monocytes/100 WBC Auto (Bld) Ordered By: Mckenzie Cherry on 02-16-2023 Monocytes/100 WBC (Bld) 4.1 % . [facility] Neutrophils Auto (Bld) [#/Vo l]Ordered By: Mckenzie Cherry on 02-16-2023 Neutrophils (Bld) [#/Vol] 4.6 10*3/uL 1.8-7.7 [facility] Neutrophils/100 WBC Auto (Bl d)Ordered By: Mckenzie Cherry on 02-16-2023 Neutrophils/100 WBC (Bld) 58.0 % . [facility] Nitrite Test strip Ql (U)Ord ered By: Mckenzie Cherry on 02-16-2023 Nitrite Ql (U) Negative Negative [facility] No Panel InformationOrdered By: Mckenzie Cherry on 02-16-2023 Estimated GFR (CKD-EPI) > 60.0 mL/Min [facility] Creatinine Clearance (Chem 125.02 [facility] Nucleated erythrocytes [Pres ence] in Blood by Automated countOrdered By: Mckenzie Cherry on 02-16-2023 Nucleated RBC Auto Ql (Bld) 0.5 /100{WBC} 0-0.5 [facility] Platelet adequacy [Presence] in Blood by Light microscopyOrdered By: Mckenzie Cherry on 02-16-2023 Platelets LM Ql (Bld) Normal Normal [facility] Platelet mean volume Auto (B ld) [Entitic vol]Ordered By: Mckenzie Cherry on 02-16-2023 Platelet mean volume (Bld) [Entitic vol] 9.3 fL 6.6-10.1 [facility] Platelet morphology finding [Identifier] in BloodOrdered By: Mckenzie Cherry on 02-16-2023 Platelet morphology finding Nom (Bld) Normal Normal [facility] Platelets Auto (Bld) [#/Vol] Ordered By: Mckenzie Cherry on 02-16-2023 Platelets (Bld) [#/Vol] 310 10*3/uL 150-450 [facility] Potassium [Moles/volume] in Serum or PlasmaOrdered By: Mckenzie Cherry on 02-16-2023 Potassium [Moles/Vol] 4.7 mmol/L 3.5-5.1 [facility] Protein Auto test strip (U) [Mass/Vol]Ordered By: Mckenzie Cherry on 02-16-2023 Protein (U) [Mass/Vol] Negative Negative [facility] Protein [Mass/volume] in Ser um or PlasmaOrdered By: Mckenzie Cherry on 02-16-2023 Protein [Mass/Vol] 8.6 g/dL 6.4-8.9 [facility] RBC Auto (Bld) [#/Vol]Ordere d By: Mckenzie Cherry on 02-16-2023 RBC (Bld) [#/Vol] 5.49 10*6/uL 3.90-5.60 [facility] RBC morphologyOrdered By: Co raj Cherry on 02-16-2023 RBC morphology finding Nom (Bld) N/A [facility] Red blood cell stomatocyte d etectionOrdered By: Mckenzie Cherry on 02-16-2023 Stomatocytes LM Ql (Bld) Slight [facility] Scan and CBCon 02-16-2023 Anisocytosis Ql (Bld) Slight Normal [facility] Comment on above: Order Comment: WILIAM Paulina conden is gonna try with ultrasound AB 1751 Performed By: #### C MP, SCAN CBC #### [facility] [address] [place] [address] [place] Basophils (Bld) [#/Vol] 0.2 10*3/uL Normal 0.0-0.2 [facility] Comment on above: Order Comment: RN Paulina conden is gonna try with ultrasound AB 1751 Performed By: #### C MP, SCAN CBC #### [facility] [address] [place] [id number] [place] Basophils/100 WBC (Bld) 3.1 % Normal . [facility] Comment on above: Order Comment: RN Paulina conden is gonna try with ultrasound AB 1751 Performed By: #### C MP, SCAN CBC #### [facility] [address] [place] [id number] [place] Eosinophils (Bld) [#/Vol] 0.1 10*3/uL Normal 0.0-0.45 [facility] Comment on above: Order Comment: WILIAM Paulina conden is gonna try with ultrasound AB 1751 Performed By: #### C MP, SCAN CBC #### [facility] [address] [place] [address] [place] Eosinophils/100 WBC (Bld) 1.5 % Normal . [facility] Comment on above: Order Comment: WILIAM nash is gonna try with ultrasound AB 1751 Performed By: #### C MP, SCAN CBC #### [facility] [address] Erythrocyte distribution width (RBC) [Ratio] 15.7 % High 12.0-14.8 [facility] Comment on above: Order Comment: WILIAM nash is gonna try with ultrasound AB 1751 Performed By: #### C MP, SCAN CBC #### [facility] [address] Hematocrit (Bld) [Volume fraction] 45.5 % Normal 38.8-50.0 [facility] Comment on above: Order Comment: WILIAM nash is gonna try with ultrasound AB 1751 Performed By: #### C MP, SCAN CBC #### [facility] [address] Hemoglobin (Bld) [Mass/Vol] 14.9 g/dL Normal 13.0-17.0 [facility] Comment on above: Order Comment: WILIAM nash is gonna try with ultrasound AB 1751 Performed By: #### C MP, SCAN CBC #### [facility] [address] [place] [address] [place] Lymphocytes (Bld) [#/Vol] 2.6 10*3/uL Normal 1.00-4.8 [facility] Comment on above: Order Comment: WILIAM nash is gonna try with ultrasound AB 1751 Performed By: #### C MP, SCAN CBC #### [facility] [address] [place] [id number] [place] Lymphocytes/100 WBC (Bld) 33.3 % Normal . [facility] Comment on above: Order Comment: WILIAM nash is gonna try with ultrasound AB 1751 Performed By: #### C MP, SCAN CBC #### [facility] [address] [place] [id number] [place] MCH (RBC) [Entitic mass] 27.2 pg Low 27.5-35.2 [facility] Comment on above: Order Comment: RN Paulina conden is gonna try with ultrasound AB 1751 Performed By: #### C MP, SCAN CBC #### [facility] [address] [place] [address] [place] MCV (RBC) [Entitic vol] 82.9 fL Low 83.5-101 [facility] Comment on above: Order Comment: RN Paulina conden is gonna try with ultrasound AB 1751 Performed By: #### C MP, SCAN CBC #### [facility] [address] [place] [address] [place] Mean Corpuscular HGB Conc 32.8 g/dL Normal 32.5-35.6 [facility] Comment on above: Order Comment: RN Paulina conden is gonna try with ultrasound AB 1751 Performed By: #### C MP, SCAN CBC #### [facility] [address] [place] [address] [place] Monocytes (Bld) [#/Vol] 0.3 10*3/uL Normal 0.0-0.8 [facility] Comment on above: Order Comment: RN Paulina conden is gonna try with ultrasound AB 1751 Performed By: #### C MP, SCAN CBC #### [facility] [address] [place] [address] [place] Monocytes/100 WBC (Bld) 19.77 % Normal 0.00-20.00 [facility] Comment on above: Order Comment: RN Paulina conden is gonna try with ultrasound AB 1751 Result Comment: For adults in ED, MDW > 20.0 may be associated with a higher risk of sepsis during the first 12 hrs of hospital admission Performed By: #### C MP, SCAN CBC #### [facility] [address] [place] [id number] [place] Monocytes/100 WBC (Bld) 4.1 % Normal . [facility] Comment on above: Order Comment: RN Paulina conden is gonna try with ultrasound AB 1751 Performed By: #### C MP, SCAN CBC #### [facility] [address] [place] [address] [place] Neutrophils (Bld) [#/Vol] 4.6 10*3/uL Normal 1.8-7.7 [facility] Comment on above: Order Comment: RN Paulina nash is gonna try with ultrasound AB 1751 Performed By: #### C MP, SCAN CBC #### [facility] [address] [place] [address] [place] Neutrophils/100 WBC (Bld) 58.0 % Normal . [facility] Comment on above: Order Comment: RN Paulina conden is gonna try with ultrasound AB 1751 Performed By: #### C MP, SCAN CBC #### [facility] [address] [place] [address] [place] NRBC% 0.5 /100{WBC} Normal 0-0.5 [facility] Comment on above: Order Comment: RN Paulina nash is gonna try with ultrasound AB 1751 Performed By: #### C MP, SCAN CBC #### [facility] [address] [place] [address] Platelet Estimate Normal Normal Normal [facility] Comment on above: Order Comment: RN Paulina nash is gonna try with ultrasound AB 1751 Performed By: #### C MP, SCAN CBC #### [facility] [address] [place] [address] [place] Platelet mean volume (Bld) [Entitic vol] 9.3 fL Normal 6.6-10.1 [facility] Comment on above: Order Comment: RN Paulina nash is gonna try with ultrasound AB 1751 Performed By: #### C MP, SCAN CBC #### [facility] [address] [place] [address] [place] Platelet Morphology Normal Normal Normal [facility] Comment on above: Order Comment: RN Paulina nash is gonna try with ultrasound AB 1751 Result Comment: PERF ORMED BY: [place] [address] PATHOLOGIST [employer]QU[employer] DEPARTMENT MANAGER CHRISTOPHER CARTER M.D. Performed By: #### C MP, SCAN CBC #### [facility] [address] [place] [address] [place] Platelets (Bld) [#/Vol] 310 10*3/uL Normal 150-450 [facility] Comment on above: Order Comment: RN Paulina nash is gonna try with ultrasound AB 1751 Performed By: #### C MP, SCAN CBC #### [facility] [address] [place] [address] [place] RBC (Bld) [#/Vol] 5.49 10*6/uL Normal 3.90-5.60 [facility] Comment on above: Order Comment: RN Paulina nash is gonna try with ultrasound AB 1751 Performed By: #### C MP, SCAN CBC #### [facility] [address] [place] [address] [place] Stomatocytes Slight Normal [facility] Comment on above: Order Comment: RN Paulina nash is gonna try with ultrasound AB 1751 Performed By: #### C MP, SCAN CBC #### [facility] [address] [place] [address] [place] WBC (Bld) [#/Vol] 7.9 10*3/uL Normal 4.1-10.5 [facility] Comment on above: Order Comment: RN Paulina nash is gonna try with ultrasound AB 1751 Performed By: #### C MP, SCAN CBC #### [facility] [address] Serum or plasma albumin/glob ulin mass ratioOrdered By: Mckenzie Cherry on 02-16-2023 Albumin/Globulin [Mass ratio] 1.2 {ratio} [facility] Serum or plasma anion gap de terminationOrdered By: Mckenzie Cherry on 02-16-2023 Anion gap [Moles/Vol] 12.4 mmol/L 6.0-15.0 [facility] Sodium [Moles/volume] in Ser um or PlasmaOrdered By: Mckenzie Cherry on 02-16-2023 Sodium [Moles/Vol] 136 mmol/L 136-145 [facility] Specific gravity Auto test s trip (U) [Rel density]Ordered By: Mckenzie Cherry on 02-16-2023 Specific gravity (U) [Rel density] 1.017 1.001-1.030 [facility] Squamous epithelial cells de tection in urine sediment by light microscopyOrdered By: Mckenzie Cherry on 02-16-2023 Epithelial cells.squamous LM Ql (Urine sed) 0-1 [HPF] 0-2 [facility] Urea nitrogen [Mass/volume] in Serum or PlasmaOrdered By: Mckenzie Cherry on 02-16-2023 Urea nitrogen [Mass/Vol] 16 mg/dL 7-25 [facility] Urine bacteria detection by automated methodOrdered By: Mckenzie Cherry on 02-16-2023 Bacteria Auto Ql (U) None seen None Seen [facility] Urine clarity by refractomet ry automatedOrdered By: Mckenzie Cherry on 02-16-2023 Clarity Refractometry automated (U) Clear Clear [facility] Urine glucose measurement by automated test strip (mass/volume)Ordered By: Mckenzie Cherry on 02-16-2023 Glucose Auto test strip (U) [Mass/Vol] Normal mg/dL Normal [facility] Urine hemoglobin detection b y automated test stripOrdered By: Mckenzie Cherry on 02-16-2023 Hemoglobin Auto test strip Ql (U) Negative Negative [facility] Urine leukocyte esterase det ection by automated test stripOrdered By: Mckenzie Cherry on 02-16-2023 Leukocyte esterase Auto test strip Ql (U) 1+ Negative [facility] Urobilinogen Auto test strip (U) [Mass/Vol]Ordered By: Mckenzie Cherry on 02-16-2023 Urobilinogen (U) [Mass/Vol] Normal mg/dL Normal [facility] WBC Auto (Bld) [#/Vol]Ordere d By: Mckenzie Cherry on 02-16-2023 WBC (Bld) [#/Vol] 7.9 10*3/uL 4.1-10.5 [facility] pH Auto test strip (U)Ordere d By: Mckenzie Cherry on 02-16-2023 pH (U) 7.5 [pH] 5.0-9.0 [facility] ECG 12 lead ECGon 05-11-2022 ECG 12 lead ECG [place] [address] Electrocardiograph Report Signed Patient: Ness Beaver MR#: [id number] : 1980 Acct:[id number] Age/Sex: 42 / M ADM Date: 05/11/22 Loc: Room: Type: [facility] Attending Dr: Meera Sullivan MD Ordering Provider: [...] By Brian Carrera DO 05/11 1323 Normal [facility] CBC W/DIFFon 10-24-2020 ABS IMM GRANS 0.0 10*3/uL Normal 0.0-0.2 [facility] Comment on above: Performed By: #### [id number] #### [facility] [address] ABS NEUTROPHILS 2.7 10*3/uL Normal 1.6-7.6 [facility] Comment on above: Performed By: #### 5 0103 #### [facility] [address] [place] [address], [facility] Basophils (Bld) [#/Vol] 0.1 10*3/uL Normal 0.0-0.2 The [facility] Comment on above: Performed By: #### 5 0103 #### [facility] [address] Basophils/100 WBC (Bld) 1.0 % Normal 0.0-1.0 T he [facility] Comment on above: Performed By: #### 5 0103 #### [facility] 3000 [facility]. [address] Eosinophils (Bld) [#/Vol] 0.2 10*3/uL Normal 0.0-0.5 The [facility] Comment on above: Performed By: #### 5 0103 #### [facility] 3000 [facility]. [address] Eosinophils/100 WBC (Bld) 3.1 % Normal 0.0-6.0 The [facility] Comment on above: Performed By: #### 102 #### [facility] [address] Erythrocyte distribution width (RBC) [Ratio] 12.7 % Normal 11.5-15.0 The [facility] Comment on above: Performed By: #### 102 #### [facility] 3000 [facility]. [address] Hematocrit (Bld) [Volume fraction] 42.9 % Normal 39.0-50.0 The [facility] Comment on above: Performed By: #### 102 #### [facility] [address] Hemoglobin (Bld) [Mass/Vol] 14.0 g/dL Normal 13.0-17.0 The [facility] Comment on above: Performed By: #### 5 3 #### [facility] 3000 [facility]. [address] IMMATURE GRANS 0.2 % Normal 0.0-1.0 The [facility] Comment on above: Performed By: #### 102 #### [facility] [address] Lymphocytes (Bld) [#/Vol] 2.3 10*3/uL Normal 1.2-4.0 The [facility] Comment on above: Performed By: #### 5 0103 #### [facility] [address] [place] [address], [facility] Lymphocytes/100 WBC (Bld) 40.2 % Normal 20.0-45.0 The [facility] Comment on above: Performed By: #### 5 0103 #### [facility] [address] [place] [address], [facility] MCH (RBC) [Entitic mass] 28.1 pg Normal 27.0-33.0 The [facility] Comment on above: Performed By: #### 102 #### [facility] 3000 [facility] [place] [address], [facility] MCHC (RBC) [Mass/Vol] 32.6 g/dL Normal 32.0-35.0 The [facility] Comment on above: Performed By: #### 102 #### [facility] 3000 [facility] [place] [address], [facility] MCV (RBC) [Entitic vol] 86.0 fL Normal 82.0-98.0 T he [facility] Comment on above: Performed By: #### 5 3 #### [facility] 3000 [facility] [place] [address], [facility] Monocytes (Bld) [#/Vol] 0.5 10*3/uL Normal 0.1-1.0 The [facility] Comment on above: Performed By: #### 5 3 #### [facility] 3000 [facility] [place] [address], [facility] MONOS 7.9 % Normal 5.0-12.0 The [facility] Comment on above: Performed By: #### 5 3 #### [facility] 3000 [facility] [place] [address], [facility] Neutrophils/100 WBC (Bld) 47.6 % Normal 40.0-72.0 The [facility] Comment on above: Performed By: #### 5 3 #### [facility] [address] Nucleated RBC/100 WBC (Bld) [Ratio] 0 % Normal 0-0 The [facility] Comment on above: Performed By: #### 5 102 #### [facility] 3000 [facility] [place] [address], [facility] PLAT CNT 283 10*3/uL Normal 150-400 The [facility] Comment on above: Performed By: #### 5 102 #### [facility] 3000 [facility] [place] [address], [facility] RBC (Bld) [#/Vol] 4.99 10*6/uL Normal 4.20-5.70 The [facility] Comment on above: Performed By: #### 5 102 #### [facility] 3000 [facility] [place] [address], [facility] WBC (Bld) [#/Vol] 5.72 10*3/uL Normal 4.00-10.60 The [facility] Comment on above: Performed By: #### 5 102 #### [facility] 3000 [facility]. [address] COMP METABOLIC PANELon 10-24 Albumin [Mass/Vol] 4.7 g/dL Normal 3.5-5.7 The [facility] Comment on above: Performed By: #### 0 0121 ####[facility] [address] ALKALINE PHOSPH 68 IU/L Normal 34-104 The [facility] Comment on above: Performed By: #### 0 0121 ####[facility] ALT [Catalytic activity/Vol] 27 U/L Normal 7-52 The [facility] Comment on above: Performed By: #### 0 0121 ####[facility]3000 [facility] [place] [place] [address], [place] AST [Catalytic activity/Vol] 35 U/L Normal 13-39 The [facility] Comment on above: Performed By: #### 0 0121 ####[facility] [place] [address], [facility] Bilirubin [Mass/Vol] 0.3 mg/dL Normal 0.3-1.0 The [facility] Comment on above: Performed By: #### 0 0121 ####[facility] [place] [address], [place] Calcium [Mass/Vol] 9.9 mg/dL Normal 8.6-10.3 The [facility] Comment on above: Performed By: #### 0 0121 ####[facility] [place] [address], [place] Chloride [Moles/Vol] 101 mmol/L Normal 98-107 The [facility] Comment on above: Performed By: #### 0 0121 ####[facility] [place] [address], [place] CO2 [Moles/Vol] 33 mmol/L High 21-31 The [facility] Comment on above: Performed By: #### 0 0121 ####[facility] [place] [address], [place] Creatinine [Mass/Vol] 0.94 mg/dL Normal 0.70-1.30 The [facility] Comment on above: Performed By: #### 0 0121 ####[facility] [place] [address], [place] GFR/1.73 sq M.predicted among blacks MDRD (S/P/Bld) [Vol rate/Area] mL/min/{1.73_m2} Normal >60 The [facility] Comment on above: Performed By: #### 0 0121 ####[facility] [place] [address], [place] GFR/1.73 sq M.predicted among non-blacks MDRD (S/P/Bld) [Vol rate/Area] mL/min/{1.73_m2} Normal >60 The [facility] Comment on above: Performed By: #### 0 0121 ####[facility] [place] [address], [facility] Glucose [Mass/Vol] 91 mg/dL Normal 70-100 The [facility] Comment on above: Performed By: #### 0 0121 ####[facility] [place] [address], [facility] Potassium [Moles/Vol] 4.5 mmol/L Normal 3.5-5.1 The [facility] Comment on above: Performed By: #### 0 0121 ####[facility] [place] [address], [facility] Protein [Mass/Vol] 7.6 g/dL Normal 6.0-8.3 The [facility] Comment on above: Performed By: #### 0 0121 ####[facility] [place] [address], [facility] Sodium [Moles/Vol] 138 mmol/L Normal 136-145 The [facility] Comment on above: Performed By: #### 0 0121 ####[facility] [place] [address], [facility] Urea nitrogen [Mass/Vol] 18 mg/dL Normal 7-20 The [facility] Comment on above: Performed By: #### 0 0121 ####[facility] [place] [address], [facility] HEP B CORE AB IGM [id number] HEP B CORE IGM Negative Normal Negative The [facility] Comment on above: Result Comment: INTE RPRETIVE INFORMATION: Hepatitis B Core Ab, IgM This assay should not be used for blood donor screening, associated re-entry protocols, or for screening Human Cells, Tissues and Cellular and Tissue-Based Products (HCT/P). Performed By: [email or web address] [address] [place] [id number] Commercial Estimator: Loraine Burger MD HEP B E AB 1 HEP B E AB Positive Abnormal Negative The [facility] Comment on above: Result Comment: The anti-HBe [...] one month may be useful. Performed By: [facility] [employer] [address] [place] [address] Commercial Estimator: Loraine Burger MD HEP B E AG 1 HEP B E AG Negative Normal Negative The [facility] Comment on above: Result Comment: Perf ormed By: [place] [address] Commercial Estimator: Loraine Burger MD HEP B VIRUS, QUANT by NAAT 3 [id number] 10-24-2020 HBV QNT BY NAAT 436 IU/mL Normal The [facility] HBV QNT NAAT, INTERP Detected Abnormal Not Detected Th e [facility] Comment on above: Result Comment: INTE RPRETIVE [...] NAAT, LOG 3 log IU/mL Normal The [facility] Comment on above: Result Comment: Perf ormed By: [facility] [employer] [address] [place] [address] Commercial Estimator: Loraine Burger MD HEP C GENOTYPE w/RFLX NS5A D RUG RESIS [id number] 10-24-2020 HEP C GENOTYPING Indeterminate Normal The [facility] Comment on above: Result Comment: Hepa titis [...] C Viral RNA is tested using reverse certified personal chef polymerase chain reaction (RT-PCR) to amplify a specific portion of the 5' untranslated region (5' UTR) of the viral genome. The amplified nucleic acid is sequenced bi-directionally using dye-terminator chemistry ([employer]). Sequencing data is compared to a database [...] developed and its performance characteristics determined by [employer]. It has not been cleared or approved by the [place] Food and Drug Administration. This test was performed in a CLIA certified laboratory and is intended for clinical purposes. Performed By: [email or web address] [address] [place] [id number] Commercial Estimator: Loranie Burger MD HEPATITIS A ABS TOTAL [id number] 10-24-2020 HEP A ABS(TOTAL) Negative Normal Negative The [facility] Comment on above: Result Comment: Perf ormed By: [employer] [address] [place] [address] Commercial Estimator: Loraine Burger MD HEPATITIS B CORE ANTIBODYon 10-24-2020 HEP B CORE AB Reactive Abnormal NONREACTIVE The [facility] Comment on above: Performed By: #### 3 6513, [id number], 28257, 17561 ####[facility] HEPATITIS B SURFACE ANTIBODY QUANTon 10-24-2020 HEP B SURF AB 0.00 mIU/ml Normal The [facility] Comment on above: Result Comment: INTE RPRETATION: NONREACTIVE<8.00 mIU/mL INDETERMINATE8.00 - 12.00 mIU/mL REACTIVE>12 mIU/mL Performed By: #### 3 1423, 49762, 67590, 75753 #### [facility] 3000 [facility]. [address] HEPATITIS B SURFACE ANTIGEN QUALon 10-24-2020 HEP B SURF AG QUAL Reactive Abnormal NONREACTIVE The [facility] Comment on above: Result Comment: HEPA TITIS B SURFACE ANTIGEN TO BE CONFIRMED Performed By: #### 3 1423, 06792, 80528, 99893 #### [facility] 3000 [facility]. [address] HEPATITIS C BY TMAon HCV Not detected Normal The [facility] Comment on above: Order Comment: The A [employer]ima HCV Quant Dx assay is a real-time certified personal chef-mediated amplification (TMA) test which has a dynamic [...] products. Performed By: #### 3 1750 #### [facility] [address] HCV TMA INTERPRETATION Not detected Normal The [facility] Comment on above: Order Comment: The A ptima HCV Quant Dx assay is a real-time certified personal chef-mediated amplification (TMA) test which has a dynamic [...] products. Performed By: #### 3 1750 #### [facility] 3000 [facility]. [address] HIV1 AND 2 COMBO 4Gon 2020 HIV COMBO Negative Normal NEGATIVE The [facility] Comment on above: Performed By: #### 3 0625 #### [facility] 3000 [facility]. [address] LIVER FIBROSIS CHRONIC VIRAL [id number] 10-24-2020 [id number],F IBROMETER 176 mg/dL Normal 131-293 The [facility] ALT [Catalytic activity/Vol] 31 U/L Normal 5-50 The [facility] Amylase [Catalytic activity/Vol] 12 U/L Normal 7-51 The [facility] AST [Catalytic activity/Vol] 42 U/L Normal 9-50 The [facility] CIRRHOMETER PATIENT SCORE 0.01 Normal The [facility] EER FIBROMETER REPORT See Note Normal The [facility] Comment on above: Result Comment: [facility] Enhanced Report using the link below: -Direct access: [email or web address] FIBROMETER INTERPRETATION See Report Normal The [facility] Comment on above: Result Comment: [16] [17] INTERPRETIVE INFORMATION: Fibrometer Interpretation Calculations for the final report are based on accurate data for age, gender, and platelet count. If any of this information needs to be corrected, please contact [facility] Client Services to request a recalculation. Client [...] developed and its performance characteristics determined by [employer]. It has not been cleared or approved by the [place] Food and Drug Administration. This test was performed in a CLIA certified laboratory and is intended for clinical purposes. Performed By: [employer] [address] [place] [id number] Commercial Estimator: Loraine Burger MD FIBROMETER PLATELET CT 283 k/uL Normal Th e [facility] FIBROMETER PLATELET IND 87 % Low 90-120 T he [facility] FIBROMETER PLATELET SCORE 0.26 Normal The [facility] FIBROSIS METAVIR CLASSIFICATION F1[F1-F2] Normal The [facility] Comment on above: Result Comment: INTE RPRETIVE [...] and A3 INFLAMETER PATIENT SCORE 0.25 Normal [facility] PROTHROMBIN TIMEon 1 INR Coag (PPP) [Relative time] 1.02 {INR} Normal 0.91-1.16 The [facility] Comment on above: Order Comment: Jessica julio [...] CHEST 1995;[id number]. Performed By: #### 5 6101 ####[facility]3000 [facility].[address] PT Coag (PPP) [Time] 13.4 s Normal 12.3-14.8 The [facility] Comment on above: Order Comment: Jessica julio drawn PT/INR Result Comment: ALL RESULTS MUST BE INTERPRETED WITH RESPECT TO BLOOD DRAWING ARTIFACT OR DILUTION ERROR OF ANTICOAGULANT AT THE TIME OF SAMPLING. Performed By: #### 5 6101 ####[facility] [place] [address], [facility] hep b surf ag confirmon 08-2 HEP B SURF AG QUAL INTERP CONFIRMED Normal The [facility] Comment on above: Performed By: #### 3 5233, 93385, 39865, 80105 ####[facility] [place] [address], [facility] Vital Signs Date Time Vital Sign Value Performing Clinician Facility 11-22-2023 14:16-0400 Body mass index (BMI) [Ratio] 24.8 kg/m2 [facility] 11-22-2023 14:16-0400 SaO2% (BldA) [Mass fraction] 95 % [facility] 11-22-2023 13:54-0400 Body height 172.72 cm [facility] 11-22-2023 13:54-0400 Body temperature 97.7 [degF] [facility] 11-22-2023 13:54-0400 Body weight 74.16 kg [facility] 11-22-2023 13:54-0400 Diastolic blood pressure 66 mm[Hg] [facility] 11-22-2023 13:54-0400 Heart rate 60 /min [facility] 11-22-2023 13:54-0400 Systolic blood pressure 104 mm[Hg] [facility] 10-19-2023 09:01-0400 Body height 172.72 cm [facility] 10-19-2023 09:01-0400 Body mass index (BMI) [Ratio] 24.5 kg/m2 [facility] 10-19-2023 09:01-0400 Body weight 73.02 kg [facility] 10-19-2023 09:01-0400 Diastolic blood pressure 66 mm[Hg] [facility] 10-19-2023 09:01-0400 Heart rate 72 /min [facility] 10-19-2023 09:01-0400 SaO2% (BldA) [Mass fraction] 97 % [facility] 10-19-2023 09:01-0400 Systolic blood pressure 108 mm[Hg] [facility] 07-28-2023 07:01-0400 Body temperature 97.9 [degF] Hany Fuentes MD Work Phone: [employer] 07-28-2023 07:01-0400 Diastolic blood pressure 79 mm[Hg] Hany Fuentes MD Work Phone: [facility] [employer] 07-28-2023 07:01-0400 Heart rate 75 /min Hany Fuentes MD Work Phone: [employer] 07-28-2023 07:01-0400 Respiratory rate 18 /min Hany Fuentes MD Work Phone: [employer] 07-28-2023 07:01-0400 SaO2% (BldA) [Mass fraction] 96 % Hany Fuentes MD Work Phone: [facility] [employer] 07-28-2023 07:01-0400 Systolic blood pressure 130 mm[Hg] Hany Fuentes MD Work Phone: [facility] [employer] 04-02-2023 11:34-0500 Diastolic blood pressure 67 mm[Hg] [facility] [employer] 04-02-2023 11:34-0500 Heart rate 68 /min [facility] [employer] 04-02-2023 11:34-0500 Respiratory rate 16 /min [facility] [employer] 04-02-2023 11:34-0500 SaO2% (BldA) [Mass fraction] 100 % [facility] [employer] 04-02-2023 11:34-0500 Systolic blood pressure 121 mm[Hg] [facility] [employer] 04-02-2023 09:16-0500 Body temperature 97.11 [degF] [facility] [employer] 04-02-2023 09:16-0500 Body height 172.7 cm [facility] [employer] 04-02-2023 09:16-0500 Body mass index (BMI) [Ratio] 24.33 kg/m2 [facility] [employer] 04-02-2023 09:16-0500 Body weight 72.58 kg [facility] [employer] 03-06-2023 19:17-0500 Body height 172.7 cm [facility] [employer] 03-06-2023 19:17-0500 Body mass index (BMI) [Ratio] 24.33 kg/m2 [facility] [employer] 03-06-2023 19:17-0500 Body temperature 97.81 [degF] [facility] [employer] 03-06-2023 19:17-0500 Body weight 72.58 kg [facility] [employer] 03-06-2023 19:17-0500 Heart rate 78 /min [facility] [employer] 03-06-2023 19:17-0500 Respiratory rate 18 /min [facility] [employer] 03-06-2023 19:17-0500 SaO2% (BldA) [Mass fraction] 98 % [facility] [employer] 03-06-2023 14:50-0500 Diastolic blood pressure 81 mm[Hg] Katie Denia DO Work Phone: [facility] [employer] 03-06-2023 14:50-0500 Heart rate 64 /min [facility] 03-06-2023 14:50-0500 Respiratory rate 16 /min [facility]TuTu DO [facility] 03-06-2023 14:50-0500 SaO2% (BldA) [Mass fraction] 97 % Katie Denia DO [facility] 03-06-2023 14:50-0500 Systolic blood pressure 120 mm[Hg] Katie Denia DO Work Phone: [employer] 03-06-2023 07:27-0500 Body temperature 97.81 [degF] [employer] DO Work Phone: [employer] 03-02-2023 13:00-0500 Body height 172.72 cm [employer] Other [employer] Other 03-02-2023 13:00-0500 Body mass index (BMI) [Ratio] 23.26 kg/m2 [employer] Other [employer] Other 03-02-2023 13:00-0500 Body weight 69.4 kg Imad Asaad Other [employer] [facility] [employer] Other 03-02-2023 13:00-0500 Diastolic blood pressure 66 mm[Hg] Imad Asaad Other [employer] [facility] [employer] Other 03-02-2023 13:00-0500 Systolic blood pressure 110 mm[Hg] Imad Asaad Other [employer] [facility] [employer] Other 02-16-2023 20:05-0500 Body temperature 98.8 [degF] PHYSICIAN NO [facility] 02-16-2023 20:05-0500 Diastolic blood pressure 95 mm[Hg] PHYSICIAN NO [facility] 02-16-2023 20:05-0500 Heart rate 94 /min PHYSICIAN NO [facility] 02-16-2023 20:05-0500 Respiratory rate 20 /min PHYSICIAN NO [facility] 02-16-2023 20:05-0500 SaO2% (BldA) [Mass fraction] 96 % PHYSICIAN NO [facility] 02-16-2023 20:05-0500 Systolic blood pressure 156 mm[Hg] PHYSICIAN NO [facility] 02-16-2023 14:24-0500 Body height 172.72 cm PHYSICIAN NO [facility] 02-16-2023 14:24-0500 Body weight 67.05 kg PHYSICIAN NO [facility] Encounters Encounter Date Encounter Type Care Provider Facility Start: 11-22-2023 End: 11-22-2023 ambulatory [facility] Work Phone: Start: 11-22-2023 End: 11-22-2023 Patient encounter procedure [facility] Work Phone: Start: 10-19-2023 End: 10-19-2023 ambulatory [facility] Work Phone: Start: 10-19-2023 End: 10-19-2023 Patient encounter procedure [facility] Work Phone: Start: 10-08-2023 Non-patient / Non-visit [facility] Work Phone: Start: 07-28-2023 End: 07-28-2023 Emergency department patient visit [facility] Start: 07-28-2023 End: 07-28-2023 Emergency department patient visit Hany Fuentes MD Work Phone: [facility] Comment on above: Lumbar strain, initi al encounter (Primary Dx) Start: 04-02-2023 End: 04-02-2023 Emergency department patient visit [facility] Start: 04-02-2023 End: 04-02-2023 Emergency department patient visit [facility] EMERGENCY DEPT Comment on above: RSV (respiratory syn cytial virus infection) (Primary Dx) Start: 03-06-2023 End: 03-06-2023 Emergency department patient visit [facility] Start: 03-06-2023 End: 03-06-2023 Emergency department patient visit [facility] EMERGENCY DEPT Comment on above: Encounter for monito ring Suboxone maintenance therapy (Primary Dx) Start: 03-06-2023 End: 03-06-2023 Emergency department patient visit KATIE SCOTTULLOCH [facility] Start: 03-06-2023 End: 03-06-2023 Emergency department patient visit Katie Loza DO Work Phone: [facility] Comment on above: History of hepatitis (Primary Dx); Transaminitis; History of opioid abuse (CMS/HCC) (HCC) Start: 03-02-2023 End: 03-02-2023 ambulatory PHYSICIAN NO FAMILY [facility] Other Start: 03-02-2023 [facility] visit new patient Chay Weber [facility] Start: 02-16-2023 End: 02-16-2023 Emergency department patient visit PHYSICIAN NO FAMILY Facility:[facility] Start: 02-16-2023 End: 02-16-2023 Emergency department patient visit PHYSICIAN NO [facility] Work Phone: Start: 05-11-2022 End: 05-11-2022 ambulatory PHYSICIAN NO [facility] Facility:[facility] Start: 05-11-2022 End: 05-11-2022 ambulatory PHYSICIAN NO [facility] Work Phone: Start: 05-11-2022 End: 05-11-2022 Patient encounter procedure PHYSICIAN NO [facility] Work Phone: Start: 02-15-2022 End: 02-15-[address] CHINEDU CESAR Facility: Start: 09-15-2021 End: 09-23-2021 ambulatory UNKNOWN PROVIDER Facility:[facility] Procedures Date Procedure Procedure Detail Performing Clinician Start: 04-02-2023 Radiologic exam ches t single view Maribeth Veliz HOROLOGIST Work Phone: Start: 04-02-2023 SARS-COV-2, FLU A/B, AND RSV COMBO Maribeth Veliz HOROLOGIST Work Phone: Start: 04-02-2023 Urinalysis complete panel - Urine Maribeth Veliz HOROLOGIST Work Phone: Start: 04-02-2023 Urnls dip stick/tabl et reagent auto microscopy Maribeth Veliz HOROLOGIST Work Phone: Start: 03-06-2023 Hepatic function panel Katie Loza DO Work Phone: Plan of Treatment Date Care Activity Detail Author Start: 2040 RSV Immunization aged 60 or older (1 - 1-dose 60+ series) RSV Immunization aged 60 or older (1 - 1-dose 60+ series) [facility] Start: 2030 Zoster Vaccines (1 of 2) Zoster Vaccines (1 of 2) [facility] Start: 10-31-2023 Influenza vaccination Influenza Vaccine (Season Ended) [facility] Start: 10-19-2023 Patient referral [facility] Work Phone: Start: 02-16-2023 [facility] Start: 10-30-2022 COVID-19 Vaccine ( season) COVID-19 Vaccine ( season) [facility] Start: 10-30-2022 Influenza vaccination Influenza Vaccine (#1) [facility] Start: 1999 DTaP/Tdap/Td Vaccines (1 - Tdap) DTaP/Tdap/Td Vaccines (1 - Tdap) [facility] Start: 1999 Hepatitis A Vaccines (1 of 2 - Risk 2-dose series) Hepatitis A Vaccines (1 of 2 - Risk 2-dose series) [facility] Start: 1999 Hepatitis B Vaccines (1 of 3 - 19+ 3-dose series) Hepatitis B Vaccines (1 of 3 - 19+ 3-dose series) [facility] Start: 1998 Hepatitis C screening Hepatitis C Screening [facility] Start: 1993 Varicella vaccination Varicella Vaccines (1 of 2 - 13+ 2-dose series) [facility] Start: 1992 Depression Screening Depression Screening [facility] Start: 1981 MMR Vaccines (1 of 1 - Standard series) MMR Vaccines (1 of 1 - Standard series) [facility] Start: 1981 Varicella vaccination Varicella Vaccines (1 of 2 - 2-dose childhood series) [facility] Start: 1980 COVID-19 Vaccine (#1) COVID-19 Vaccine (#1) [facility] Start: 1980 Hepatitis B Vaccines (1 of 3 - 3-dose series) Hepatitis B Vaccines (1 of 3 - 3-dose series) [facility] Start: 1980 HIV screening HIV Screening [facility] Start: 1980 Lipid panel Lipid Panel [facility] Hepatitis A virus antibody, IgM type [facility] Hepatitis B core antibody measurement, IgM type [facility] Hepatitis B virus surface Ag [Presence] in Serum or Plasma by Immunoassay [facility] Hepatitis C virus Ig G Ab [Presence] in Serum or Plasma by Immunoassay [facility] Hepatitis C virus RN A [log units/volume] (viral load) in Serum or Plasma by MONTSERRAT with probe detection [facility] Hepatitis C virus RN A [Units/volume] (viral load) in Serum or Plasma by MONTSERRAT with probe detection [facility] Patient Education Hepatitis Panel [facility] Work Phone: Patient referral [facility] Work Phone: Payers Date Payer Category Payer Medicaid [employer] ODM [id number] 2023-Present [phone] [address] [place] [address] Medicaid HMO [id number] 2023 Medicaid [id number] 2022 Self-pay 2021 Unknown [id number] 1980 Unknown [id number] 1980 Unknown [id number] 1959 Medicaid [id number] Private Health Insurance [facility] [id number] Unknown [id number] Unknown [id number] Unknown [id number] Social History Date Type Detail Facility Tobacco smoking stat us DCIS Unknown if ever smoked [facility] Work Phone: Start: 1980 Sex Assigned At Male F [facility] Start: 02-16-2023 End: 03-06-2023 Tobacco smoking status NHIS Never smoked tobacco (finding) [facility] Start: 03-06-2023 Sex Assigned At S [facility] Start: 03-06-2023 Alcohol intake Current non-dr guest services of alcohol (finding) [facility] Start: 03-06-2023 History of Social function [facility] How often to you hav e a drink containing alcohol? Never [facility] How many standard drinks containing alcohol do you have on a typical day? Patient does not drink [facility] Start: 03-06-2023 Gender identity Identifies as male gender (finding) [facility] Start: 03-06-2023 Sexual orientation Heterosexual (fin ding) [facility] Start: 10-19-2023 End: 11-22-2023 Tobacco smoking status NHIS Ex-smoker (finding) [facility] Clinical Notes 03-02-2023 to 07-28-2023 Hany Fuentes MD - 07/28/2023 6:58 AM EDTAulices Fuentes MD - 07/28/2023 6:58 AM EDTDischarge InstructionsAttachmentsMaribeth Veliz, HOROLOGIST - 04/02/2023 9:08 AM ESTDischarge Instructions Note [...] BP 07/28/23 0701 07/28/23 0701 07/28/23 0701 07/28/23700 36.6 C (97.9 F) 75 18 130/79 [...] and DIFFERENTIAL DIAGNOSIS/MDM: Vitals: Vitals: 07/28/23 0659 05/29/24 0701 BP: 130/79 Pulse: 75 Resp: 18 [...] AM PATIENT [facility] [address] [place] [phone] Schedule an appointment as soon as [...] MD 07/28/23 0808 documented in this encounter [facility] 07-28-2023 Physician Emergen cy department Note [...] Resp BP 07/28/23 0701 07/28/23 0701 07/28/23 0707/28/23 07 36.6 C (97.9 F) 75 18 130/79 [...] AM PATIENT REFERRED TO: [facility] [address] [place] [phone] Schedule an appointment as soon as [...] Emergency Medicine Provider Hany Fuentes MD 07/28/23807 [facility] 04-02-2023 Hospital Discharg e instructions Maribeth [...] Care Everywhere.Respiratory Syncytial Virus Discharge Instructions, Adult (Nicaraguan)documented in this encounter [facility] 04-02-2023 Emergency departm ent Note EMERGENCY [...] Culture. Procedure Abnormality Status --------- ------ Complete Urinalysis[[id number]] Abnormal Final result Please view results for [...] Patient also instructed to continue use of [id number] cold and flu medicine as needed. The patient will be Discharged. Patient is in agreement with this plan. PROCEDURES: Unless otherwise noted below, none Procedures CRITICAL CARE TIME None FINAL IMPRESSION 1. RSV (respiratory syncytial virus infection) DISPOSITION Discharge 04/02/2023 11:26:21 AM PATIENT REFERRED TO: [facility] EMERGENCY DEPT [address] [place] [phone] Go to As needed, If symptoms [...] APRN 04/02/23 1136 documented in this encounter [facility] 04-02-2023 Physician Emergen cy department Note [...] Culture. Procedure Abnormality Status --------- ------ Complete Urinalysis[[id number]] Abnormal Final result Please view results for [...] Patient also instructed to continue use of txyj-ctg-zvyurxj cold and flu medicine as needed. The patient will be Discharged. Patient is in agreement with this plan. PROCEDURES: Unless otherwise noted below, none Procedures CRITICAL CARE TIME None FINAL IMPRESSION 1. RSV (respiratory syncytial virus infection) DISPOSITION Discharge 04/02/2023 11:26:21 AM PATIENT REFERRED TO: [facility] EMERGENCY DEPT [address] [place] [phone] Go to As needed, If symptoms [...] Medicine Provider Maribeth Veliz APRN 04/02/23 1136 [facility] 03-06-2023 Emergency departm ent Note Discharge instructions reviewed with patient and he understands. He will take 2 doses of 8mg suboxone on 03/07,03/08, and 03/09. He will not take any suboxone on 03/10 for appointment at [place]. I called [facility] for transportation. Patient discharged to wait in waiting room for ride. Luba Abbott RN 03/06/231936 [facility] 03-06-2023 Emergency departm ent Note Discharge instructions reviewed with patient and he understands. He will take 2 doses of 8mg suboxone on 03/07,03/08, and 03/09. He will not take any suboxone on 03/10 for appointment at [place]. I called [facility] for transportation. Patient discharged to wait in waiting room for ride. Luba Abbott RN 03/06/231936 Patient spoke with Peer assistant men's soccer coach on the phone. PRC card provided. Verified with Senior Mainframe Developer at [facility] that he is a patient there. Luba Abbott RN 03/06/231908 Patient in MAT room, with suboxone prescription, has 6 8 mg suboxone strips. States the suboxone is not working with a plan to transition to methadone on Wednesday. Looking to increase dose as we are unable to initiate methadone in the ED. Addiction medicine was consulted from [facility] and stated there is no concern to increase dose with methadone transition in the future but to instruct patient to hold dose the morning of his appointment. Ness Beaver was transferred from [facility] to [facility] for suboxone dosing. He was driven by [place] [employer] employee. Dr. Uribe was consulted to discuss plan of care for this patient. He was taking suboxone 16mg and had elevated liver enzymes. His dose was stopped in January. On 02/21 he was sent to [facility] due to potential suicidal ideation. He restarted suboxone on 02/22 at 4mg. He is currently on 8/2mg per day. Last dose was on 03/05/2023 suboxone / film. He has the filled rx on him. He has an appointment to transfer to Methadone on 03/10/23 at [place]. Luba Abbott RN 03/06/23 1716 EMERGENCY DEPARTMENT ENCOUNTER Pt Name: Ness Beaver Birthdate 1980 Date of evaluation: 03/06/2023 ED Provider: Maribeth Veliz APRN Patient seen independently within my scope of practice with an Emergency Medicine attending available for supervision. CHIEF COMPLAINT Chief Complaint Patient presents with Addiction Problem Sent from [place] via Dr. Uribe to see MAT nurse. Acc was consulted from [place] via telehealth. Pt stated on 16/4 mg suboxone via telehealth. Now stating on 09/30 and prescription endorses this. His goal is to transition to methadone and went to [place] today through [facility] but was unable to dose due to them not having his information. They sent him to [facility]. Unable to dose methadone as a new prescription but per addiction consult plan is to increase dose of suboxone. HISTORY OF PRESENT ILLNESS (Location/Symptom, Timing/Onset, Context/Setting, Quality, Duration, Modifying Factors, Severity) Note limiting factors. I wore appropriate PPE for the entirety of this encounter. HPI Ness Beaver is a 42 y.o. who presents to the emergency department from [facility] for Suboxone dosing. Patient states that his Suboxone therapy was discontinued on 21 February due to elevated liver enzymes. Patient states he was then sent to [facility] due to suicidal ideation. Suboxone therapy restarted on 22 February at 4 mg daily. Patient has been titrated up to 8 mg daily with his last dose yesterday. He does however state that this dose has not been sufficient for managing withdrawal symptoms. There was a misunderstanding at [facility] at which time it was understood that patient was on 16 mg daily of Suboxone and still needed an increase in dose. Because of this patient was sent to [facility] to be seen by addiction medicine physician. Patient does have 6 films of 8/2 Suboxone on him. Has appointment to transfer to methadone on 03/10/2023 at [facility]. Patient endorses some chills, mild nausea, mild [...] ED. I discussed their care with addiction healthcare advisory services manager nurses dmitry and Rudi. They had reached [...] Emergency Medicine Provider Maribeth Veliz APRN 03/06/23 3183 documented in this encounter [facility] 03-06-2023 Emergency departm ent Note Patient spoke with Peer assistant men's soccer coach on the phone. PRC card provided. Verified with Senior Mainframe Developer at [facility] that he is a patient there. Luba Abbott RN 03/06/23 0383 [facility] 03-06-2023 Hospital Discharg e instructions Maribeth Veliz APRN - 03/06/2023 6:56 PM EST As discussed with myself, [facility] nurses, and Dr. Uribe with addiction medicine, [...] be sent through Care Everywhere.Drug Level Monitoring (Nicaraguan)documented in this encounter [facility] 03-06-2023 Emergency departm ent Triage note Patient in MAT room, with suboxone prescription, has 6 8 mg suboxone strips. States the suboxone is not working with a plan to transition to methadone on Wednesday. Looking to increase dose as we are unable to initiate methadone in the ED. Addiction medicine was consulted from [place] [facility] and stated there is no concern to increase dose with methadone transition in the future but to instruct patient to hold dose the morning of his appointment. [facility] 03-06-2023 Emergency departm ent Note Ness Beaver was transferred from [facility] to [facility] for suboxone dosing. He was driven by [employer]) employee. Dr. Uribe was consulted to discuss plan of care for this patient. He was taking suboxone 16mg and had elevated liver enzymes. His dose was stopped in January. On 02/21 he was sent to [facility] due to potential suicidal ideation. He restarted suboxone on 02/22 at 4mg. He is currently on 8/2mg per day. Last dose was on 03/05/2023 suboxone / film. He has the filled rx on him. He has an appointment to transfer to Methadone on 03/10/23 at [place]. Luba Abbott RN 03/06/23 9811 [facility] 03-06-2023 Physician Emergen cy department Note EMERGENCY DEPARTMENT ENCOUNTER Pt Name: Ness Beaver Birthdate 1980 Date of evaluation: 03/06/2023 ED Provider: Maribeth Veliz APRN Patient seen independently within my scope of practice with an Emergency Medicine attending available for supervision. CHIEF COMPLAINT Chief Complaint Patient presents with Addiction Problem Sent from [place] via Dr. Uribe to see MAT nurse. Acc was consulted from [place] via telehealth. Pt stated on 16/4 mg suboxone via telehealth. Now stating on 8/2 and prescription endorses this. His goal is to transition to methadone and went to [place] today through [facility] but was unable to dose due to them not having his information. They sent him to [facility]. Unable to dose methadone as a new prescription but per addiction consult plan is to increase dose of suboxone. HISTORY OF PRESENT ILLNESS (Location/Symptom, Timing/Onset, Context/Setting, Quality, Duration, Modifying Factors, Severity) Note limiting factors. I wore appropriate PPE for the entirety of this encounter. HPI Ness Beaver is a 42 y.o. who presents to the emergency department from [facility] for Suboxone dosing. Patient states that his Suboxone therapy was discontinued on 21 February due to elevated liver enzymes. Patient states he was then sent to [facility] due to suicidal ideation. Suboxone therapy restarted on 22 February at 4 mg daily. Patient has been titrated up to 8 mg daily with his last dose yesterday. He does however state that this dose has not been sufficient for managing withdrawal symptoms. There was a misunderstanding at [facility] at which time it was understood that patient was on 16 mg daily of Suboxone and still needed an increase in dose. Because of this patient was sent to [facility] to be seen by addiction medicine physician. Patient does have 6 films of 8/2 Suboxone on him. Has appointment to transfer to methadone on 03/10/2023 at [facility]. Patient endorses some chills, mild nausea, mild [...] ED. I discussed their care with addiction healthcare advisory services manager nurses dmitry and Rudi. They had reached [...] Emergency Medicine Provider Maribeth Veliz APRN 03/06/23 2927 [facility] 03-06-2023 Emergency departm ent Note Patient being transported over to [facility] by private vehicle (I spoke with Julio Cesar from [facility] who is coming to pick the patient up). Resources have been sent with patient. Vitals remain stable. Viki Mathew RN 03/06/23 1455 [facility] 03-06-2023 Emergency departm ent Note Patient being transported over to [facility] by private vehicle (I spoke with Julio Cesar from [employer] who is coming to pick the patient up). Resources have been sent with patient. Vitals remain stable. Viki Mathew RN 03/06/23 1455 Faxed consent form for Addiction medicine and Peer assistant men's soccer coach pamphlet to [facility] Esme Jeter RN 03/06/23 1301 Esme Jeter [...] to detox. Was dropped off here by [facility] to sort out a dose. HISTORY OF PRESENT ILLNESS (Location/Symptom, Timing/Onset, Context/Setting, Quality, Duration, Modifying Factors, Severity) Note limiting factors. I wore appropriate PPE for the entirety of this encounter. HPI 42-year-old male presents emergency department today seeking methadone initiation. Is currently at [facility] and was dropped off here for possible emergency dose. He was taken to [place] and they have an appointment for him [...] Response: Oriented Best Motor Response: Follows commands [place] Coma Scale Score: 15 PHYSICAL EXAM ED Triage Vitals Temp Heart Rate Resp BP 03/06/23 0727 03/06/23 0727 03/06/23 0727 03/06/23 0727 36.6 C (97.8 F) [...] Physician [facility] RAD[facility]Y (Per Emergency Physician): Interpretation per the [...] today seeking methadone initiation. Is currently at [facility] and was dropped off here for possible emergency dose. He was taken to [place] and they have an appointment for him [...] but states is not helping him. [BM] [address] Malik Theodore of addiction medicine he states that patient to be evaluated by MAT nurse at [facility] if would like to be bridged from Suboxone to methadone. We cannot dispense methadone here in the ED. Told patient that apparently he needs to have his liver function test checked given his history of hepatitis and also be evaluated by MAT nurse over there if he would like his dose of Suboxone potentially increased prior to his appointment at [place] for methadone dosing on Wednesday. [BM] 1449 Patient does have a ride to take him to [facility] for evaluation by the MAT nurse will speak to ED physician for ED to ED transfer. [BM] 1452 Accepted at [facility] emergency department by Dr. Lorenzo for evaluation by MAT nurse. [BM] ED Course User Index [BM] Katie Loza DO Diagnoses as of 03/06/23 1528 History of hepatitis Transaminitis History of opioid abuse (CMS/HCC) (HCC) Medications - No data to display REVAL: CRITICAL CARE TIME FINAL IMPRESSION 1. History of hepatitis 2. Transaminitis 3. History of opioid abuse (CMS/HCC) (HCC) DISPOSITION Transfer To [facility] 03/06/2023 02:49:31 PM PATIENT REFERRED TO: [facility] [address] [address] Schedule an appointment as soon as possible for a visit in 2 days [facility] ED [address] [facility] [phone] As needed, If symptoms worsen DISCHARGE [...] Medicine Provider Katie Loza DO 03/06/23 1528 documented in this encounter [facility] 03-06-2023 Emergency departm ent Note Faxed consent form for Addiction medicine and Peer assistant men's soccer coach pamphlet to [facility] Esme Jeter RN 03/06/23 1301 Esme Jeter RN 03/06/23 1302 [facility] 03-06-2023 Emergency departm ent Note MAT nurse unavailable until 11 am. Pt aware and will wait in waiting room until he can be evaluated Reyna Cason RN 03/06/23 0758 [facility] 03-06-2023 Physician Emergen cy department Note [...] to detox. Was dropped off here by the [facility] to sort out a dose. HISTORY OF PRESENT ILLNESS (Location/Symptom, Timing/Onset, Context/Setting, Quality, Duration, Modifying Factors, Severity) Note limiting factors. I wore appropriate PPE for the entirety of this encounter. HPI 42-year-old male presents emergency department today seeking methadone initiation. Is currently at [facility] and was dropped off here for possible emergency dose. He was taken to [place] and they have an appointment for him [...] No Drug use: No Comment: methadone SCREENINGS [place] Coma Scale Best Eye Response: Spontaneous Best Verbal Response: Oriented Best Motor Response: Follows commands [place] Coma Scale Score: 15 PHYSICAL EXAM ED Triage Vitals Temp Heart Rate Resp BP 03/06/23 0727 03/06/23 0727 03/06/23 0727 03/06/23 0727 36.6 C (97.8 F) 67 18 (!) 142/86 SpO2 Temp Source Heart Rate Source Patient Position 03/06/23 0703/06/23 0727 03/06/23 0727 03/06/23 115 100 % Temporal Monitor Sitting BP Location [...] today seeking methadone initiation. Is currently at [facility] and was dropped off here for possible emergency dose. He was taken to [place] and they have an appointment for him [...] to be evaluated by MAT nurse at [facility] if would like to be bridged from Suboxone to methadone. We cannot dispense methadone here in the ED. Told patient that apparently he needs to have his liver function test checked given his history of hepatitis and also be evaluated by MAT nurse over there if he would like his dose of Suboxone potentially increased prior to his appointment at [place] for methadone dosing on Wednesday. [BM] 1449 Patient does have a ride to take him to [facility] for evaluation by the MAT nurse will speak to ED physician for ED to ED transfer. [BM] 1452 Accepted at [facility] emergency department by Dr. Lorenzo for evaluation by MAT nurse. [BM] ED Course User Index [BM] Katie Loza DO Diagnoses as of 03/06/23 1528 History of hepatitis Transaminitis History of opioid abuse (CMS/HCC) (HCC) Medications - No data to display REVAL: CRITICAL CARE TIME FINAL IMPRESSION 1. History of hepatitis 2. Transaminitis 3. History of opioid abuse (CMS/HCC) (HCC) DISPOSITION Transfer To [facility] 03/06/2023 02:49:31 PM PATIENT REFERRED TO: [facility] [address] [address] Schedule an appointment as soon as possible for a visit in 2 days [facility] ED [address] [facility] [phone] As needed, If symptoms worsen DISCHARGE [...] Medicine Provider Katie Loza DO 03/06/23 1528 [facility] 03-02-2023 Evaluation note Encounter Date Diagnosis Assessment Notes Mar, Elevated liver enzymes (ICD-10 - R74.8) [employer] Other Evaluation noteNo assessment information available [facility] Work Phone: Evaluation note* Diagnosis History of hepatitis- Primary Transaminitis Nonspecific elevation of levels of transaminase or lactic acid dehydrogenase (LDH) History of opioid abuse (CMS/HCC) (HCC) [facility] Diagnosis Encounter for monitoring Suboxone maintenance therapy- Primary documented in this encounter [facility] note* Diagnosis RSV (respiratory syncytial virus infection)- Primary Respiratory syncytial virus (RSV) documented [facility] [facility] Diagnosis Lumbar strain, initial encounter- [facility] Onset Date Resolution Status Allergic rhinitis acute Anxiety acute Depression acute Family history of colon cancer acute Hepatitis C acute Screening for malignant neoplasm of colon acute [facility] Work Phone: Evaluation note* Diagnosis Onset Date Resolution Status Allergic rhinitis acute Anxiety acute Depression acute Family history of colon cancer acute Former smoker acute Hepatitis C acute History of drug abuse acute Screening for malignant neoplasm of colon acute Vapes nicotine containing substance acute [facility] Work Phone: History general Narrative - Reported* Type Description Date Surgical History tonsillectomy and adenoidectomy [facility] Other Hospital Discharge instructions Additional Instructions Follow-up with Dr. Jerome You may return to [facility] Work Phone: Hospital Discharge instructions* Attachments The following attachments cannot be sent through Care Everywhere. * Back Muscle Strain ([place]icaraguan) * Back Stretches on Floor ([place]icaraguan) documented in this [facility] Health Summary Purpose Family History Relationship Condition Age at Onset Recorded Date/T kylah Not Specified Malignant neoplasm of colon Unknown Advance Directives Advance Directive Response Recorded Date/ Time Advance Directives No May 11 023 8:26am Advance Directive Response Recorded Date/ Time Advance Directives No May 11 7:26am Chief Complaint and Reason for Visit Chief Complaint long QT syndrome Chief Complaint headache , fever sen t by dr Chief Complaint Establish Reason for Visit Allergic rhinitis Anxiety Depression Family history of colon cancer Hepatitis C Screening for malignant neoplasm of colon Chief Complaint Establish boil on middle of back Reason for Visit Allergic rhinitis Anxiety Depression Family history of colon cancer Former smoker Hepatitis C History of drug abuse Screening for malignant neoplasm of colon Vapes nicotine containing substance Additional Source Comments (unrecognized sect ion and content) No Status Records FoundNo Status Records FoundNo Status Records FoundNo Status Records FoundNo Status Records Found INFORMATION SOURCE (unrecogn ized section and content) DATE CREATED AUTHOR 11/01/2020 [facility] DATE CREATED AUTHOR AUTHOR'S ORGANIZ ATION 09/25/2021 [facility] [facility] [facility] DATE CREATED AUTHOR AUTHOR'S ORGANIZ ATION 02/20/[address] [facility] DATE CREATED AUTHOR AUTHOR'S ORGANIZ ATION 03/28/2023 [facility] DATE CREATED AUTHOR AUTHOR'S ORGANIZ ATION 07/29/2023 [facility] Care Teams (unrecognized sec tion and content) Team Status: Active Member Role Status Dates PHYSICIAN NO FAMILY Primary Care Provider Active Team Status: Inactive Member Role Status Dates PHYSICIAN NO FAMILY Primary Care Provider Active Meera Sullivan MD Attending Provider Active Team Status: Inactive Member Role Status Dates PHYSICIAN NO FAMILY Primary Care Provider Active Joshua Burger MD Emergency Provider Active Boiler Control Technician Relationship Specialty Start Date End Date [facility] [address] [place] [address] PCP - General 03/06/23 Boiler Control Technician Relationship Specialty Start Date End Date [facility] [address] [place] [address] PCP - General 03/06/23 Boiler Control Technician Relationship Specialty Start Date End Date [facility] [address] [place] [address] PCP - General 03/06/23 Boiler Control Technician Relationship Specialty Start Date End Date [facility] [address] [place] [address] PCP - General 03/06/23 Team Status: Active Member Role Status Dates Asiya Boyd APRN [employer] Primary Care Provider Active Team Status: Inactive Member Role Status Dates Asiya Boyd APRN [employer] Primary Care Provider, Attending Provider Active Start: October 19, 2023 End: October 19, 2023 Team Status: Active Member Role Status Dates Asiya Boyd APRN [employer] Primary Care Provider Active Start: October 08, 2023 John Sheth DO Attending Provider Active Sta rt: October 08, 2023 Team Status: Inactive Member Role Status Dates Asiya Body APRN [employer] Primary Care Provider Active Start: October [id number] End: November 22, 2023 Poonam Velázquez APRN Attending Provider Active S tart: November 22, 2023 End: November 22, 2023 Goals (unrecognized section and content) Goals may be documented in a n alternate sectionGoals may be documented in an alternate sectionNo InformationGoals may be documented in an alternate sectionGoals may be documented in an alternate section REASON FOR VISIT (unrecogniz ed section and [...] to detox. Was dropped off here by [facility] to sort out a dose. Reason Comments Addiction Problem Sent from [place] via Dr. Uribe to see MAT nurse. Acc was consulted from [place] via telehealth. Pt stated on 16/4 mg suboxone via telehealth. Now stating on 09/30 and prescription endorses this. His goal is to transition to methadone and went to [facility] today through [facility] but was unable to dose due to them not having his information. They sent him to [facility]. Unable to dose methadone as a new [...] BE BASED ON THE PRIMARY CLINICAL RECORDS. [employer] provides no warranty or guarantee of the accuracy or completeness of information in this document.
[2023-11-23 11:06] LABS: Basophils Absolute Auto 0.1 10^3/uL (0.0-0.1); Basophils Percent Auto 0.6 % (0.2-2.0); Eosinophils Absolute Auto 0.1 10^3/uL (0.0-0.7); Eosinophils Percent Auto 0.6 % (0.9-7.0); Hematocrit 43.3 % (42.0-54.0); Hemoglobin 14.6 g/dL (14.0-18.0); Immature Granulocytes Abs Auto 0.01 10^3/uL (0.00-0.03); Immature Granulocytes Pct Auto 0.1 % (0.0-0.5); Lymphocytes Absolute Auto 1.1 10^3/uL (1.2-3.8); Lymphocytes Percent Auto 11.4 % (20.5-60.0); Mean Corpuscular HGB Conc 33.7 g/dL (29.9-35.2); Mean Corpuscular Hemoglobin 27.9 pg (25.9-34.0); Mean Corpuscular Volume 82.6 fL (80.0-94.0); Mean Platelet Volume 9.9 fL (9.5-13.5); Monocytes Absolute Auto 0.9 10^3/uL (0.3-0.8); Monocytes Percent Auto 9.3 % (1.7-12.0); Neutrophils Absolute Auto 7.4 10^3/uL (1.4-6.5); Platelet Count 263 10^3/uL (150-450); Red Blood Count 5.24 10^6/uL (4.70-6.10); Red Cell Distribution Width 12.8 % (11.0-15.0); White Blood Count 9.5 10^3/uL (4.0-11.0)
[2023-11-23] MEDS: KETOROLAC TROMETHAMINE 30 MG/ML VIAL 15 MG IVP (11:22)
[2023-11-23 11:25] LABS: Alanine Aminotransferase 27 U/L (16-63); Albumin Globulin Ratio 1.3; Albumin Level 4.2 g/dL (3.4-5.0); Alkaline Phosphatase 72 U/L (46-116); Anion Gap 11.6; Aspartate Amino Transferase 24 U/L (15-37); BUN Creatinine Ratio 16.3; Bilirubin Total 0.4 mg/dL (0.2-1.0); Calcium 9.2 mg/dL (8.5-10.1); Carbon Dioxide 30.5 mmol/L (21.0-32.0); Chloride 98 mmol/L (98-107); Estimated GFR (African America >60 (>=60); Estimated GFR (Non-African Ame >60 (>=60); Globulin 3.3 g/dL; Glucose 96 mg/dL (74-106); Potassium 4.1 mmol/L (3.5-5.1); Sodium 136 mmol/L (136-145); Total Protein 7.5 g/dL (6.4-8.2)
[2023-11-23 12:30] VITALS: BP 100/74; PULSE 70; O2SAT 96
--- NOTE | 2023-11-23 14:35 | ED.GENADUL1 ---
HPI HPI - General Adult General Chief complaint: Skin/Abscess/Foreign Body Stated complaint: skin other/ shortness of breath/ fever Time Seen by Provider: 11/23/23 10:20 Source: patient Mode of arrival: walk-in Limitations: no limitations History of Present Illness HPI narrative: The patient presented to us with a lesion that he noticed on the upper back. He mentioned that he noted that few days ago because it was a little bit painful. There was no fever no chills The patient mentioned that whenever he take a deep breath he feels like there is a pain and tightness in his chest because of the lesion Related Data Home Medications ?Medication ?Instructions ?Recorded ?Confirmed loratadine 10 mg tablet 10 mg PO DAILY PRN allergy symptoms 02/12/23 11/23/23 methadone 150 mg PO DAILY 10/08/23 11/23/23 sertraline 50 mg tablet 50 mg PO Q24H 11/23/23 11/23/23 Previous Rx's ?Medication ?Instructions ?Recorded amoxicillin 875 mg-potassium 1 tab PO Q12H #14 tabs 11/23/23 clavulanate 125 mg tablet doxycycline hyclate 100 mg tablet 100 mg PO BID 7 days #14 tabs 11/23/23 ibuprofen 600 mg tablet 600 mg PO Q8H PRN pain #20 tabs 11/23/23 Allergies Allergy/AdvReac Type Severity Reaction Status Date / Time No Known Drug Allergies Allergy Verified 11/23/23 10:12 Opioid HPI Opioid Management Most Recent Opioid Data: Last Pain Scale 5 11/23/23 11:22 Last MAR Pain Assessment 11/23/23 11:22 Ur Phencyclidine Scrn Negative (NEGATIVE) 02/12/23 19:48 Review of Systems ROS Status of ROS 10 or more systems reviewed and unremarkable except as noted in history and below [facility] Medical History (Updated 11/23/23 @ 12:28 by Tatyana Hardin MD) Methadone maintenance therapy patient ?F11.20 - Opioid dependence, uncomplicated (ICD-10) Social History Smoking status: Former smoker Little interest or pleasure in doing things: not at all Feeling down, depressed, or hopeless: not at all Exam Narrative Exam Narrative: Posterior chest :at the middle part of the posterior aspect of the thorax and the patient have an area of 2 cm fluctuation that is not tender mildly red and very soft, it is just overlying the spine and there is a no tenderness on palpation there is mild redness Nurses notes and vital signs reviewed and patient is not hypoxic. General: Well-appearing and in no apparent distress. Skin: Warm, dry, no pallor noted. No rash. Head: Normocephalic, atraumatic. Neck: Supple, non-tender. Eye: Pupils are equal, round and EOMI. No scleral icterus. Ears, Nose, Mouth, and Throat: TM are clear, no nasal mucosal hypertrophy. Oral mucosa is moist, no posterior oropharynx erythema, uvula is mid-line Cardiovascular: Regular Rate and Rhythm without murmur, gallop or rub. Respiratory: No accessory muscle use or respiratory distress. Lungs are clear to auscultation, no wheezing, rales or rhonchi Chest Wall: no tenderness Back: No midline thoracic or lumbar vertebral tenderness. No CVA tenderness Musculoskeletal: normal ROM, no calf or popliteal tenderness, no lower extremity edema/swelling GI: Abdomen is soft, non-distended. Normal bowel sounds. No masses appreciated. No tenderness to palpation. No rebound, guarding, or rigidity noted. Neurological: A&O x4. No cranial nerve dysfunction observed. No truncal ataxia. Moves all extremities. Sensation intact. Psychiatric: Cooperative and interactive. Normal mood and affect. Constitutional Vital Signs, click to edit/add: Last Vital Signs Temp 98.9 F 11/23/23 10:14 Pulse 70 11/23/23 12:30 Resp 14 11/23/23 12:30 BP 100/74 11/23/23 12:30 Pulse Ox 96 11/23/23 12:30 O2 Del Method Room Air 11/23/23 12:30 Course Vital Signs Vital signs: Vital Signs Temperature 98.9 F 11/23/23 10:14 Pulse Rate 80 11/23/23 10:14 Respiratory Rate 12 11/23/23 10:14 Blood Pressure 128/87 11/23/23 10:14 Pulse Oximetry 95 11/23/23 10:14 Oxygen Delivery Method Room Air 11/23/23 10:14 Temperature 98.9 F 11/23/23 10:14 Pulse Rate 70 11/23/23 12:30 Respiratory Rate 11/23/23 12:30 Blood Pressure 100/74 11/23/23 12:30 Pulse Oximetry 96 11/23/23 12:30 Oxygen Delivery Method Room Air 11/23/23 12:30 Medical Decision Making MDM Narrative Medical decision making narrative: The patient CBC and chemistry as well as chest x-ray showed no acute pathology His presentation is mostly secondary to a lipoma possibly be specially that the tissue is soft and there is no tenderness it could be a mild cellulitis and over the lipoma and right now the patient will be started antibiotic instructed to monitor his swelling in case it is worsened and not responding to antibiotic he will be coming back to the ER The patient initial shortness of breath complaint was mostly just the tightness he feels because of the muscle pain whenever he take a deep breath ,he was feeling much better after Toradol The patient as well as his significant other were instructed about monitoring the size of the swelling with the use of the antibiotic in addition to any increasing pain or any start of fever he is to come back to the ER The patient is to follow up with primary care physician in next 2-3 days or to return to the emergency department should any of the signs or symptoms worsen or new symptoms develop. The patient agrees with the following Diagnosis and Treatment plan and the patient will be discharged home. Lab Data Labs: Lab Results 11/23/23 Range/Units 10:58 WBC 9.5 (4.0-11.0) 10^3/uL RBC 5.24 (4.70-6.10) 10^6/uL Hgb 14.6 (14.0-18.0) g/dL Hct 43.3 (42.0-54.0) % MCV 82.6 (80.0-94.0) fL MCH 27.9 (25.9-34.0) pg MCHC 33.7 (29.9-35.2) g/dL RDW 12.8 (11.0-15.0) % Plt Count 263 (150-450) 10^3/uL MPV 9.9 (9.5-13.5) fL Neut % (Auto) 78.0 H (43.0-75.0) % Lymph % (Auto) 11.4 L (20.5-60.0) % [place] % (Auto) 9.3 (1.7-12.0) % Eos % (Auto) 0.6 L (0.9-7.0) % Baso % (Auto) 0.6 (0.2-2.0) % Neut # (Auto) 7.4 H (1.4-6.5) 10^3/uL Lymph # (Auto) 1.1 L (1.2-3.8) 10^3/uL [place] # (Auto) 0.9 H (0.3-0.8) 10^3/uL Eos # (Auto) 0.1 (0.0-0.7) 10^3/uL Baso # (Auto) 0.1 (0.0-0.1) 10^3/uL Abs Immat Gran (auto) 0.01 (0.00-0.03) 10^3/uL Imm/Tot Granulo (auto) 0.1 (0.0-0.5) % Sodium 136 (136-145) mmol/L Potassium 4.1 (3.5-5.1) mmol/L Chloride 98 (98-107) mmol/L Carbon Dioxide 30.5 (21.0-32.0) mmol/L Anion Gap 11.6 BUN 14.0 (7.0-18.0) mg/dL Creatinine 0.86 (0.70-1.30) mg/dL Est GFR ( Amer) >60 (>=60) Est GFR (Non-Af Amer) >60 (>=60) BUN/Creatinine Ratio 16.3 Glucose 96 (74-106) mg/dL Calcium 9.2 (8.5-10.1) mg/dL Total Bilirubin 0.4 (0.2-1.0) mg/dL AST 24 (15-37) U/L ALT 27 (16-63) U/L Alkaline Phosphatase 72 (46-116) U/L Total Protein 7.5 (6.4-8.2) g/dL Albumin 4.2 (3.4-5.0) g/dL Globulin 3.3 g/dL Albumin/Globulin Ratio 1.3 Discharge Plan Discharge Chief Complaint: Skin/Abscess/Foreign Body Clinical Impression: Cellulitis Patient Disposition: Home, Self-Care Time of Disposition Decision: 12:28 Condition: Good Prescriptions / Home Meds: New amoxicillin-pot clavulanate 875-125 mg tablet 1 tab PO Q12H Qty: 14 0RF doxycycline hyclate 100 mg tablet 100 mg PO BID 7 Days Qty: 14 0RF ibuprofen 600 mg tablet 600 mg PO Q8H PRN (Reason: pain) Qty: 20 0RF No Action methadone 150 mg PO DAILY sertraline 50 mg tablet 50 mg PO Q24H loratadine 10 mg tablet 10 mg PO DAILY PRN (Reason: allergy symptoms) Print Language: Italian Instructions: Cellulitis (ED), Lipoma (ED) Referrals: FORD FIELD [Primary Care Provider] - 1 week Discharge Date/Time: 11/23/23 12:35
== END 2023-11-23 12:35 | disposition home or self-care (01) ==
PROVIDERS: Emergency Provider Emergency Medicine; PCP Nurse Practitioner Family
DX: L03.312 Cellulitis of back [any part except buttock and flank] (principal); Z87.891 Personal history of nicotine dependence
CPT/HCPCS: 36415; 71046; 80053; 85025; 96374; 99284; J1885

== ENCOUNTER 2024-04-20 09:56 | Emergency (ER) | payer OTHER, SELFPAY ==
[2024-04-20] VITALS (25 sets, daily range): BP systolic 150–174; BP diastolic 83–102; PULSE 68–91; TEMP 36.7; O2SAT 95–99
--- OUTSIDE RECORDS SUMMARY | 2024-04-20 10:06 | XMS_ITS | CCD ---
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 Name Role Phone PROVIDER, UNKNOWN Attending Unavailable PROVIDER, UNKNOWN Admitting Unavailable BARRY DUFFY Primary Care Unavailable DR CHINEDU CESAR Consulting Unavailable MIS, DR YEE Primary Care Unavailable DARIN GARY Attending Unavailable DARIN GARY Admitting Unavailable NO FAMILY, PHYSICIAN Primary Care Provider UnaMD Meera Gray Attending Provider NO FAMILY, PHYSICIAN Primary Care Provider UnaMD Joshua Sun Emergency Provider Asaad, Imad Unavailable [facility], [facility] Primary Care Provider Unav KATIE Freeman Attending Unavailable [facility] Primary Care Unavailable HANY FUENTES Attending Unavailable CANELO Boyd Attending Provider [phone] NO FAMILY, PHYSICIAN Primary Care Provider MD Chay Kilpatrick Attending Provider CANELO Boyd Primary Care Provider MD Stan Richards Attending Provider Asaad, Imad Attending Unavailable NO FAMILY, PHYSICIAN Primary Care Unavailable Asaad, Imad Admitting Unavailable Stan Richards Admitting Unavailable Stan Richards Attending Unavailable Asiya Boyd Primary Care Unavailable Joshua Burger Admitting Unavailable Joshua Burger Attending Unavailable NO FAMILY, PHYSICIAN Primary Care Unavailable NO FAMILY, PHYSICIAN Primary Care Unavailable Asaad, Imad Admitting Unavailable Asaad, Imad Attending Unavailable Asiya Boyd Admitting Unavailable Asiya Boyd Attending Unavailable NO FAMILY, PHYSICIAN Primary Care Unavailable Medications Current Medications Medication Drug Class(es) Dates Sig (Normalized) Sig (Original) amoxicillin 875 mg / clavulanate 125 mg oral tablet (4 sources) Penicillin-class Antibacterial Start: 11-29-2023 take 1 tablet by mouth twice daily Amoxicillin-Pot Clavulanate Active TAB PO Twice daily November 29, 2023 12:00am benzonatate 100 mg oral capsule (2 sources) Non-narcotic Antitussive Start: 04-02-2023 End: 04-09-2023 take 1 capsule by mouth every eight [...] oral tablet (2 sources) Muscle Relaxant Start: 07-28-2023 End: 08-07-2023 take 1 tablet by mouth twice daily [...] as needed Orally Once a day Active doxycycline hyclate 100 mg oral tablet (4 sources) Tetracycline-class Drug Start: 11-29-2023 take 1 mg by mouth twice daily Doxycycline Hyclate Active MG PO Twice daily November 29, 2023 12:00am loratadine 10 mg oral tablet (12 sources) Start: 10-19-2023 End: 10-19-2023 take 1 tablet by mouth once daily Loratadine (Allergy Relief (Loratadine)) 10 mg tablet Active 10 MG PO Daily 90 October 19, 2023 9:31am methadone hydrochloride 10 mg/ml oral solution (14 sources) Opioid Agonist Start: 11-24-2023 take 150 mg by mouth once daily Methadone Active 150 MG PO Daily November 24, 2023 12:00am Start: 11-24-2023 End: 11-24-2023 take 150 mg by mouth once daily Methadone Discontinued 150 MG PO Daily November 24, 2023 12:00am November 24, 2023 2:34pm Start: 10-19-2023 End: 11-24-2023 take 40 mg by mouth once daily Methadone Discontinued 40 MG PO Daily October 19, 2023 12:00am November 24, 2023 2:30pm methylPREDNISolone 4 mg oral tablet (2 sources) Corticosteroid Start: 04-02-2023 End: 04-09-2023 methylPREDNISolone (Medrol Dospak) 4 MG tablets Follow schedule on package instructions 21 tablet 0 04/02/2023 04/09/2023 Active Multivitamin preparation (1 source) take 1 tablet by mouth once daily Multi Vitamin - 1 tablet Orally Once a day Active predniSONE 20 mg oral tablet (2 sources) Start: 07-28-2023 End: 08-01-2023 take 2 tablets by mouth once daily predniSONE (Deltasone) 20 MG tablet Take 2 tablets (40 mg) by mouth daily for 4 days. 8 tablet 0 07/28/2023 08/01/2023 Active saccharomyces boulardii 250 mg oral capsule (5 sources) Start: 11-22-2023 take 1 capsule by mouth once daily Saccharomyces Boulardii (Digest Probiotic (S.Boulardii)) 250 mg capsule Active 250 MG PO Daily November 22, 2023 12:00am Start: 11-22-2023 take 1 capsule by [facility] twice daily Saccharomyces Boulardii (Digest Probiotic (S.Boulardii)) 250 mg capsule Active 250 MG PO Twice daily November 22, 2023 12:00am sertraline 50 mg oral tablet (20 sources) Serotonin Reuptake Inhibitor Start: 10-19-2023 End: 10-19-2023 take 1 tablet by mouth once daily Sertraline (Zoloft) 50 mg tablet Active 50 MG PO Daily 90 90 October 19, 2023 9:30am sertraline (Zolo ft) 100 MG tablet Take by mouth. 0 Active Zoloft Active sulfamethoxazole 800 mg / trimethoprim 160 mg oral tablet (4 sources) Dihydrofolate Reductase Inhibitor Antibacterial, Sulfonamide Antimicrobial Start: 11-29-2023 take 1 tablet by mouth twice daily Sulfamethoxazole-Trimethoprim (Bactrim Ds) 800-160 mg tablet Active 1 TAB PO Twice daily 20 November 29, 2023 12:00am Completed/Discontinued Medications Medication Drug Class(es) Dates Sig (Normalized) Sig (Original) buprenorphine 8 mg / naloxone 2 mg sublingual film (16 sources) Partial Opioid Agonist, Opioid Antagonist Start: [...] Active traZODone hydrochloride 50 mg oral tablet (7 sources) Serotonin Reuptake Inhibitor Start: 02-16-2023 End: 10-19-2023 take 50 mg by mouth once daily at bedtime Trazodone Discontinued 50 MG PO Daily at bedtime February 16, 2023 1:00am October 19, 2023 9:05am Problems Active Problems Problem Classification Problem Date Documented Date Episodic/Chronic Anxiety disorders (12 sources) Anxiety; Translations: [Anxiety disorder, unspecified] 10-19-2023 Chronic Conduction disorders (1 source) Long QT syndrome; Translations: [Long QT syndrome] Onset: 12-22-2023 Chronic Hepatitis (12 sources) Viral hepatitis C; Translations: [Unspecified viral hepatitis C without hepatic coma] 10-19-2023 Episodic Mood disorders (12 sources) Depressive disorder; Translations: [Depression] 10-19-2023 Chronic Other aftercare (2 sources) Drug therapy finding; Translations: [Encounter for therapeutic drug level monitoring] 03-06-2023 Episodic Other infections; including parasitic (1 source) H/O: liver disease; Translations: [Personal history of other infectious and parasitic diseases] 03-06-2023 Episodic Other liver diseases (8 sources) Enzyme level - finding; Translations: [Elevated [...] conditions (not mental disorders or infectious disease) (14 sources) Patient encounter status; Translations: [Encounter for screening for malignant neoplasm of colon] Onset: 03-02-2023 10-19-2023 Episodic Other upper respiratory disease (6 sources) Allergic rhinitis; Translations: [Allergic rhinitis, unspecified] 10-19-2023 Chronic Other upper respiratory disease (6 sources) Allergic rhinitis, unspecified; Translations: [Allergic rhinitis, cause unspecified] 10-19-2023 Chronic Residual codes; unclassified (6 sources) Family history of cancer of colon; Translations: [Family history of malignant neoplasm of digestive organs] 10-19-2023 Episodic Residual codes; unclassified (6 sources) Family history of malignant neoplasm of digestive organs; Translations: [Family history of malignant neoplasm of gastrointestinal tract] 10-19-2023 Episodic Residual codes; unclassified (5 sources) Nicotine-filled electronic cigarette user; Translations: [Tobacco use] 10-19-2023 Episodic Residual codes; unclassified (5 sources) Tobacco use; Translations: [Tobacco use disorder] 10-19-2023 Episodic Screening and history of mental health and substance abuse codes (10 sources) Ex-smoker; Translations: [Personal history of nicotine dependence] 10-19-2023 Episodic Skin and subcutaneous tissue infections (13 sources) Abscess; Translations: [Cutaneous abscess, unspecified] Onset: 11-29-2023 11-22-2023 Episodic Sprains and strains (4 sources) Low back strain; Translations: [Strain of muscle, fascia and tendon of lower back, initial encounter] Onset: 07-28-2023 07-28-2023 Episodic Substance-related disorders (13 sources) Nicotine dependence, cigarettes, uncomplicated; Translations: [Opioid abuse, uncomplicated] Onset: 02-16-2022 03-06-2023 Chronic Unclassified (2 sources) Drug / Alcohol Assessment; Translations: [Drug / Alcohol Assessment] Onset: 03-06-2023 Past or Other Problems Problem Classification Problem Date Documented Da te Episodic/Chronic Abdominal pain (1 source) Unspecified abdominal pain; Translations: [Unspecified abdominal pain] Onset: 02-16-2023 Episodic Other aftercare (2 sources) Encounter for therapeutic drug level monitoring; Translations: [Encounter for therapeutic drug level monitoring] Onset: 03-06-2023 Episodic Other aftercare (2 sources) Other terminal supervisor (current) drug therapy; Translations: [Other terminal supervisor (current) drug therapy] Onset: 03-06-2023 Episodic Viral infection (4 sources) Respiratory syncytial virus infection; Translations: [Other specified viral diseases] Onset: 04-02-2023 04-02-2023 Episodic Results Test Name Value Interpretation Reference Range Facility ECG 12 lead ECGon 12-22-[address] [facility] [address] Electrocardiograph Report Signed Patient: Ness Beaver MR#: [id number] : 1980 Acct:[id number] Age/Sex: 43 / M ADM Date: 12/22/23 Loc: Room: Type: [facility] Attending Dr: Stan Richards MD Ordering Provider: Stan Richards MD Date of Service: 12/22/23/ ECG/ECG 12 lead ECG: see order Copies to: Test Reason : Blood Pressure : */* mmHG Vent. Rate : 54 BPM Atrial Rate : 54 BPM P-R Int : 130 ms QRS Dur : 92 ms QT Int : 428 ms P-R-T Axes : 4 53 12 degrees QTcB Int : 405 ms Sinus bradycardia Otherwise normal ECG When compared with ECG of 11-May-2022 08:48, Vent. rate has decreased by 37 bpm Confirmed by DAVID HART [id number] on 12/22/2023 1:53:59 PM Referred By: Electronically Signed By: ZAHRA RODRIGUEZ MD [facility] Transcribed By: MUS Signed By Zahra Rodriguez MD, [facility] 12/22/23 2033 Normal [facility] Amphetamine Screen Ql (U)Ord ered By: Chay Weber on 12-08-2023 Amphetamines Ql (U) Negative Negative [facility] Barbiturates [Presence] in U rine by Screen methodOrdered By: Chay Weber on 12-08-2023 Barbiturates Screen Ql (U) Negative Negative [facility] Benzodiazepines Screen Ql (U )Ordered By: Chay Weber on 12-08-2023 Benzodiazepines Ql (U) Negative Negative [facility] Benzoylecgonine [Presence] i n Urine by Screen methodOrdered By: Chay Weber on 12-08-2023 Benzoylecgonine Screen Ql (U) Negative Negative [facility] Cannabinoids [Presence] in U rine by Screen methodOrdered By: Chay Weber on 12-08-2023 Cannabinoids Screen Ql (U) Negative Negative [facility] Comment on above: These are unconfirme d results and should not be used for legal purposes. Drug Cut-Off Concentration: AMPH 1000 ng/mL ASHLEY 200 ng/mL QUINCY 200 ng/mL COCM 300 ng/mL OP 300 ng/mL PCP 25 ng/mL THC 20 ng/mL Drug Screen,Urineon 12-08-19 24 Amphetamine Screen,Urine Negative Normal Negative [facility] Comment on above: Performed By: #### H AABT, SMAB, HBV PCR, HCV RX PCR, HAAB, L-K MICRO, HEMOCHROM, HCBIGM, IGG, SIGIFREDO, HBSAB, HBS AB QUANT, CERULOP, MITOM2, HBSAG, HBCAB, ALPHA PHEN #### [facility] , #### [place], HEPATIC #### [facility] [address] Barbiturate Screen,Urine Negative Normal Negative [facility] Comment on above: Performed By: #### H AABT, SMAB, HBV PCR, HCV RX PCR, HAAB, L-K MICRO, HEMOCHROM, HCBIGM, IGG, SIGIFREDO, HBSAB, HBS AB QUANT, CERULOP, MITOM2, HBSAG, HBCAB, ALPHA PHEN #### [facility] , #### [place], HEPATIC #### [facility] [address] Benzodiazepines Screen,Urine Negative Normal Negative [facility] Comment on above: Performed By: #### H AABT, SMAB, HBV PCR, HCV RX PCR, HAAB, L-K MICRO, HEMOCHROM, HCBIGM, IGG, SIGIFREDO, HBSAB, HBS AB QUANT, CERULOP, MITOM2, HBSAG, HBCAB, ALPHA PHEN #### [facility] , #### [place], HEPATIC #### [address] Cannabinoid Screen,Urine Negative Normal Negative [facility] Comment on above: Result Comment: Thes e are unconfirmed results and should not be used for legal purposes. Drug Cut-Off Concentration: AMPH 1000 ng/mL ASHLEY 200 ng/mL QUINCY 200 ng/mL COCM 300 ng/mL OP 300 ng/mL PCP 25 ng/mL THC 20 ng/mL PERFORMED BY: [place] [address] PATHOLOGIST MANAGER INCOME TAX CHRISTOPHER CARTER M.D. Performed By: #### H AABT, SMAB, HBV PCR, HCV RX PCR, HAAB, L-K MICRO, HEMOCHROM, HCBIGM, IGG, SIGIFREDO, HBSAB, HBS AB QUANT, CERULOP, MITOM2, HBSAG, HBCAB, ALPHA PHEN #### [facility] , #### [place], HEPATIC #### [address] Cocaine Screen,Urine Negative Normal Negative [facility] Comment on above: Performed By: #### H AABT, SMAB, HBV PCR, HCV RX PCR, HAAB, L-K MICRO, HEMOCHROM, HCBIGM, IGG, SIGIFREDO, HBSAB, HBS AB QUANT, CERULOP, MITOM2, HBSAG, HBCAB, ALPHA PHEN #### [facility] , #### [place], HEPATIC #### [address] Opiate Screen,Urine Negative Normal Negative [facility] Comment on above: Performed By: #### H AABT, SMAB, HBV PCR, HCV RX PCR, HAAB, L-K MICRO, HEMOCHROM, HCBIGM, IGG, SIGIFREDO, HBSAB, HBS AB QUANT, CERULOP, MITOM2, HBSAG, HBCAB, ALPHA PHEN #### [facility] , #### [place], HEPATIC #### [address] Phencyclidine Screen,Urine Negative Normal Negative [facility] Comment on above: Performed By: #### H AABT, SMAB, HBV PCR, HCV RX PCR, HAAB, L-K MICRO, HEMOCHROM, HCBIGM, IGG, SIGIFREDO, HBSAB, HBS AB QUANT, CERULOP, MITOM2, HBSAG, HBCAB, ALPHA PHEN #### [facility] , #### [place], HEPATIC #### [address] Opiates [Presence] in Urine by Screen methodOrdered By: Imgalinod Asagalindo on 12-08-2023 Opiates Screen Ql (U) Negative Negative [facility] Phencyclidine Screen Ql (U)O rdered By: Imgalindo Asaad on 12-08-2023 Phencyclidine Ql (U) Negative Negative [facility] Aerobic Cultureon 11-29-2023 Aerobic Culture No Growth 2 Days ORGANISM: Finegoldia magna (O:FINMAG) Quantity of Growth Light Growth Please contact Microbiology within 7 days if anaerobic susceptibilities are needed. Gram Stain Result 1+ White Blood Cells No Bacteria Seen PERFORMED BY: [place] [address] PATHOLOGIST MANAGER INCOME TAX CHRISTOPHER CARTER M.D. Normal [facility] Comment on above: Performed By: #### H AABT, SMAB, HBV PCR, HCV RX PCR, HAAB, L-K MICRO, HEMOCHROM, HCBIGM, IGG, SIGIFREDO, HBSAB, HBS AB QUANT, CERULOP, MITOM2, HBSAG, HBCAB, ALPHA PHEN #### [facility] , #### [place], HEPATIC #### [address] Gram Stainon 11-29-2023 Microscopic observation Gram stain Nom (Unsp spec) Gram Stain Result 1+ White Blood Cells No Bacteria Seen PERFORMED BY: [place] [address] PATHOLOGIST MANAGER INCOME TAX CHRISTOPHER CARTER M.D. Normal [facility] Comment on above: Performed By: #### H AABT, SMAB, HBV PCR, HCV RX PCR, HAAB, L-K MICRO, HEMOCHROM, HCBIGM, IGG, SIGIFREDO, HBSAB, HBS AB QUANT, CERULOP, MITOM2, HBSAG, HBCAB, ALPHA PHEN #### [facility] , #### [place], HEPATIC #### [facility] [address] [place] [address] Gram stain for investigation of transfusion reactionOrdered By: Asiya Boyd on 11-29-2023 Microscopic observation Gram stain Nom (Unsp spec) Finegoldia magna Abnormal [facility] Basophils Auto (Bld) [#/Vol] on 11-23-2023 Basophils (Bld) [#/Vol] 0.1 10 3/uL 0.0-0.1 [facility] Basophils/100 WBC Auto (Bld) on 11-23-2023 Basophils/100 WBC (Bld) 0.6 % 0.2-2.0 [facility] Eosinophils/100 WBC Auto (Bl d)on 11-23-2023 Eosinophils/100 WBC (Bld) 0.6 % Low 0.9-7.0 [facility] Erythrocyte distribution wid th Auto (RBC) [Ratio]on 11-23-2023 Erythrocyte distribution width (RBC) [Ratio] 12.8 % 11.0-15.0 [facility] Estimated glomerular filtrat ion rate (GFR) non- Americanon 11-23-2023 GFR/1.73 sq M.predicted among non-blacks MDRD (S/P/Bld) [Vol rate/Area] mL/min/{1.73_m2} >=60 [facility] Globulin Calc (S) [Mass/Vol] on 11-23-2023 Globulin (S) [Mass/Vol] 3.3 g/dL [facility] Hematocrit Auto (Bld) [Volum e fraction]on 11-23-2023 Hematocrit (Bld) [Volume fraction] 43.3 % 42.0-54.0 [facility] Hemoglobin [Mass/volume] in Bloodon 11-23-2023 Hemoglobin (Bld) [Mass/Vol] 14.6 g/dL 14.0-18.0 [facility] Laboratory - Chemistry and C hemistry - challengeon 11-23-2023 Albumin [Mass/Vol] 4.2 g/dL 3.4-5.0 [facility] ALP [Catalytic activity/Vol] 72 U/L 46-116 [facility] ALT [Catalytic activity/Vol] 27 U/L 16-63 [facility] AST [Catalytic activity/Vol] 24 U/L 15-37 [facility] Bilirubin [Mass/Vol] 0.4 mg/dL 0.2-1.0 [facility] Calcium [Mass/Vol] 9.2 mg/dL 8.5-10.1 [facility] Chloride [Moles/Vol] 98 mmol/L 98-107 [facility] CO2 [Moles/Vol] 30.5 mmol/L 21.0-32.0 [facility] Creatinine [Mass/Vol] 0.86 mg/dL 0.70-1.30 [facility] GFR/1.73 sq M.predicted MDRD (S/P/Bld) [Vol rate/Area] mL/min/{1.73_m2} >=60 [facility] Glucose [Mass/Vol] 96 mg/dL 74-106 [facility] Potassium [Moles/Vol] 4.1 mmol/L 3.5-5.1 [facility] Protein [Mass/Vol] 7.5 g/dL 6.4-8.2 [facility] Sodium [Moles/Vol] 136 mmol/L 136-145 [facility] Urea nitrogen [Mass/Vol] 14.0 mg/dL 7.0-18.0 [facility] Urea nitrogen/Creatinine [Mass ratio] 16.3 mg/mg [facility] Laboratory - Hematology and Cell countson 11-23-2023 Immature granulocytes/100 WBC (Bld) 0.1 % 0.0-0.5 [facility] Leukocytes [#/volume] correc paul for nucleated erythrocytes in Blood by Automated counon 11-23-2023 WBC corrected for nucl RBC Auto (Bld) [#/Vol] 9.5 10 3/uL 4.0-11.0 [facility] Lymphocytes Auto (Bld) [#/Vo l]on 11-23-2023 Lymphocytes (Bld) [#/Vol] 1.1 10 3/uL Low 1.2-3.8 [facility] Lymphocytes/100 WBC Auto (Bl d)on 11-23-2023 Lymphocytes/100 WBC (Bld) 11.4 % Low 20.5-60.0 [facility] MCH Auto (RBC) [Entitic mass ]on 11-23-2023 MCH (RBC) [Entitic mass] 27.9 pg 25.9-34.0 [facility] MCHC Auto (RBC) [Mass/Vol]on 11-23-2023 MCHC (RBC) [Mass/Vol] 33.7 g/dL 29.9-35.2 [facility] MCV Auto (RBC) [Entitic vol] on 11-23-2023 MCV (RBC) [Entitic vol] 82.6 fL 80.0-94.0 [facility] Monocytes Auto (Bld) [#/Vol] on 11-23-2023 Monocytes (Bld) [#/Vol] 0.9 10 3/uL High 0.3-0.8 [facility] Monocytes/100 WBC Auto (Bld) on 11-23-2023 Monocytes/100 WBC (Bld) 9.3 % 1.7-12.0 [facility] Neutrophils Auto (Bld) [#/Vo l]on 11-23-2023 Neutrophils (Bld) [#/Vol] 7.4 10 3/uL High 1.4-6.5 [facility] Neutrophils/100 WBC Auto (Bl d)on 11-23-2023 Neutrophils/100 WBC (Bld) 78.0 % High 43.0-75.0 [facility] No Panel Informationon 11-22 Eosinophils # (Auto) 0.1 10 3/uL 0.0-0.7 [facility] Immature Granulocyte # (Auto) 0.01 10 3/uL 0.00-0.03 [facility] Platelet mean volume Auto (B ld) [Entitic vol]on 09-24-2024 Platelet mean volume (Bld) [Entitic vol] 9.9 fL 9.5-13.5 [facility] Platelets Auto (Bld) [#/Vol] on 11-23-2023 Platelets (Bld) [#/Vol] 263 10 3/uL 150-450 [facility] RBC Auto (Bld) [#/Vol]on RBC (Bld) [#/Vol] 5.24 10 6/uL 4.70-6.10 [facility] Serum or plasma albumin/glob ulin mass ratioon 11-23-2023 Albumin/Globulin [Mass ratio] 1.3 {ratio} [facility] Serum or plasma anion gap de terminationon 11-23-2023 Anion gap [Moles/Vol] 11.6 mmol/L [facility] ED Provider Noteon ED Provider Note EMERGENCY [...] 0701 07/28/23 0701 07/28/23 0701 07/28/23700 36.6 ?C (97.9 ?F) 75 18 130/79 SpO2 Temp Source Heart Rate Source Patient Position 07/28/23 0701 07/28/23 0659 07/28/23700 -- 96 % Temporal Monitor [...] below, non (more content not included)... Normal [facility] COMPLETE URINALYSISon 2023 BACTERIA (#/HPF) IN URINE Few Abnormal Negative [facility] Comment on above: Performed By: #### L [id number] ####Case Assistant: CRISTIANA BROWN ([id number])[address] BILIRUBIN, TOTAL PRESENCE IN URINE Negative Normal Negative [facility] Comment on above: Performed By: #### L [id number] ####Case Assistant: CRISTIANA BROWN ([id number])[facility])[address] [place] [address] Clarity (U) Clear Normal Clear [facility] Comment on above: Performed By: #### L [id number] ####Case Assistant: CRISTIANA BROWN ([id number])[facility])[address] [place] [address] [place] Color (U) Yellow Normal Lt. Yellow [facility] Comment on above: Performed By: #### L [id number] ####Case Assistant: CRISTIANA BROWN ([id number])[facility] ([facility])[address] [place] [address] GLUCOSE (MG/DL) IN URINE Normal Normal Normal (<70) [facility] Comment on above: Performed By: #### L [id number] ####Case Assistant: CRISTIANA BROWN ([id number])[facility] ([facility])[address] [place] [address] HEMOGLOBIN PRESENCE IN URINE Negative Normal Negative [facility] Comment on above: Performed By: #### L [id number] ####Case Assistant: CRISTIANA BROWN ([id number])[facility] ([facility])[address] [place] [address] HYALINE CASTS (#/LPF) IN URINE SEDIMENT BY MICROSCOPY Negative Normal Negative [facility] Comment on above: Performed By: #### L [id number] ####Case Assistant: CRISTIANA BROWN ([id number])[facility] ([facility])[address] [place] [address] Ketones Ql (U) Negative Normal Negative [facility] Comment on above: Performed By: #### L [id number] ####Case Assistant: CRISTIANA BROWN ([id number])[facility] ([facility])[address] [place] [address] LEUKOCYTE ESTERASE PRESENCE IN URINE BY TEST STRIP 25 Irina/uL Abnormal Negative [facility] Comment on above: Performed By: #### L [id number] ####Case Assistant: CRISTIANA BROWN ([id number])[facility] ([facility])[address] [place] [address] MUCUS (#/LPF) IN URINE SEDIMENT Many Abnormal Negative [facility] Comment on above: Performed By: #### L [id number] ####Case Assistant: CRISTIANA BROWN ([id number])[facility] ([facility])[address] [place] [address] NITRITE PRESENCE IN URINE Negative Normal Negative [facility] Comment on above: Performed By: #### L [id number] ####Case Assistant: CRISTIANA BROWN ([id number])[facility] ([facility])[address] [place] [address] pH (U) 6.0 [pH] Normal 5.0-8.0 [facility] Comment on above: Performed By: #### L [id number] ####Case Assistant: CRISTIANA BROWN ([id number])[facility] ([facility])[address] [place] [address] Protein (U) [Mass/Vol] 10 mg/dL Abnormal Negative [facility] Comment on above: Performed By: #### L [id number] ####Case Assistant: CRISTIANA BROWN ([id number])[facility] ([facility])[address] [place] [address] [place] RBC (#/HPF) IN URINE SEDIMENT 3-5 Abnormal 0-2 [facility] Comment on above: Performed By: #### L [id number] ####Case Assistant: CRISTIANA BROWN ([id number])[facility] ([facility])[address] [place] [address] Specific gravity (U) [Rel density] 1.033 High 1.005-1.030 [facility] Comment on above: Performed By: #### L [id number] ####Case Assistant: CRISTIANA BROWN ([phone])[facility] ([facility])[address] [place] [address] SQUAMOUS EPITHELIAL CELLS (#/HPF) IN URINE SEDIMENT 0-2 Normal 3-5 [facility] Comment on above: Performed By: #### L [id number] ####Case Assistant: CRISTIANA BROWN ([phone])[facility])[address] [place] [address] UROBILINOGEN (MG/DL) IN URINE 3 mg/dL Abnormal Normal (0-1) [facility] Comment on above: Performed By: #### L [id number] ####Case Assistant: CRISTIANA BROWN ([phone])[facility] ([facility])[address] [place] [address] WBC (LEUKOCYTE) (#/HPF) IN URINE SEDIMENT 3-5 Normal 0-5 [facility] Comment on above: Performed By: #### L [id number] ####Case Assistant: CRISTIANA BROWN ([phone])[address] ED Provider Noteon ED Provider Note EMERGENCY [...] RSV COM (more content not included)... Normal [facility] Laboratory - Microbiology an d Antimicrobial susceptibilityon 04-02-2023 FLUAV RNA MONTSERRAT+probe Ql (Resp) Not detected Not Detected [facility] FLUBV RNA MONTSERRAT+probe Ql (Resp) Not detected Not Detected [facility] RSV RNA MONTSERRAT+probe Ql (Resp) Detected Abnormal Not Detected [facility] SARS-CoV-2 (COVID-19) RNA MONTSERRAT+probe Ql (Resp) Not detected Not Detected [facility] SARS-COV-2, FLU A/B, AND RSV COMBOon 04-02-2023 SARS-CoV-2 (COVID-19) RNA MONTSERRAT+probe Ql (Unsp spec) SARS-COV-2 Reference Not Detected Not Detected RESPIRATORY SYNCYTIAL VIRUS (A) Reference Detected Not Detected INFLUENZA A (CEPHEID) Reference Not Detected Not Detected INFLUENZA B (CEPHEID) Reference Not Detected Not Detected ORDER COMMENTS: Methodology: real-time, RT-PCR Normal [facility] Comment on above: Performed By: #### L [id number] #### Case Assistant: CRISTIANA BROWN ([id number]) [facility] ([address] SARS-CoV-2, Flu A/B, and RSV Comboon 04-02-2023 Interpretation and review of laboratory results Abnormal [facility] Methodology: real-time, RT-PCR [facility] Urinalysis complete panel (U )Ordered By: Mónica Grace on 04-02-2023 Bacteria LM.HPF (Urine sed) [#/Area] Few Abnormal Negative /HPF [facility] Bilirubin Ql (U) Negative Negative mg/dL [facility] Clarity (U) Clear Clear [facility] Color (U) Yellow Lt. Yellow [facility] Epithelial cells.squamous LM.HPF (Urine sed) [#/Area] 0-2 [facility] Glucose Ql (U) Normal Normal (<70) mg/dL [facility] Hemoglobin Ql (U) Negative Negative mg/dL [facility] Hyaline casts Auto (Urine sed) [#/Area] Negative Negative /LPF [facility] Interpretation and review of laboratory results Abnormal [facility] Ketones (U) [Mass/Vol] Negative Negat harper mg/dL [facility] Leukocyte esterase Test strip Ql (U) 25 Abnormal Negative Irina/uL [facility] Mucus LM.HPF (Urine sed) [#/Area] Many Abnormal Negative /LPF [facility] Nitrite Ql (U) Negative Negative [facility] pH (U) 6.0 [pH] 5.0 - 8.0 pH [facility] Protein (U) [Mass/Vol] 10 mg/dL Abnormal Negative [facility] RBC LM.HPF (Urine sed) [#/Area] 3-5 Abnormal [facility] Specific gravity (U) [Rel density] 1.033 High 1.005 - 1.030 [facility] Urobilinogen (U) [Mass/Vol] 3 mg/dL Abnormal Normal (0-1) [facility] WBC LM.HPF (Urine sed) [#/Area] 3-5 [facility] XR Chest Single viewon 04-02 Impression: No acute cardiopulmonary process. Report Dictated on Electronically Signed By: Live Stinson MD Electronically Signed Date/Time: 04/02/2023 11:06 AM EST [facility] [employer] Patient Name: NESS BEAVER : 1980 [...] mild to moderate thoracic scoliosis apex leftward. [facility] [employer] [facility] Live Stinson MD - 04/02/2023 Patient Name: NESS BEAVER : 1980 [facility]#: [id number] Exam Date/Time: 04/02/2023 10:17 Procedure: XR CHEST [...] Electronically Signed Date/Time: 04/02/2023 11:06 AM EST [facility] Radiology Study observation (narrative) [facility] XR Chest Single viewOrdered By: Live Stinson on 04-02-2023 [facility] Work Phone: ED Nursing Noteon 03-06-2023 ED Nursing Note Discharge instructions reviewed with patient and he understands. He will take 2 doses of 8mg suboxone on 03/07,03/08, and 03/09. He will not take any suboxone on 03/10 for appointment at [facility]. I called [facility] for transportation. Patient discharged to wait in waiting room for ride. Luba Abbott RN 03/06/23 [address] [facility] ED Nursing Note Patient spoke with Peer assistant field hockey coach on the phone. PRC card provided. Verified with Title Officer at [facility] that he is a patient there. Luba Abbott RN 03/06/23 [address] [facility] ED Nursing Note Patient in MAT room, with suboxone prescription, has 6 8 mg suboxone strips. States the suboxone is not working with a plan to transition to methadone on Wednesday. Looking to increase dose as we are unable to initiate methadone in the ED. Addiction medicine was consulted from [facility] and stated there is no concern to increase dose with methadone transition in the future but to instruct patient to hold dose the morning of his appointment. Normal [facility] ED Nursing Note Ness Beaver was transferred from [facility] to [facility] for suboxone dosing. He was driven by [facility] employee. Dr. Uribe was consulted to discuss plan of care for this patient. He was taking suboxone 16mg and had elevated liver enzymes. His dose was stopped in January. On 02/21 he was sent to [facility] due to potential suicidal ideation. He restarted suboxone on 02/22 at 4mg. He is currently on 8/2mg per day. Last dose was on 03/05/2023 suboxone 09/30 film. He has the filled rx on him. He has an appointment to transfer to Methadone on 03/10/23 at [facility] [facility]. Luba Abbott RN 03/06/[address] [facility] ED Nursing Note Patient being transported over to [facility] by private vehicle (I spoke with Julio Cesar from [facility] who is coming to pick the patient up). Resources have been sent with patient. Vitals remain stable. iVki Mathew RN 03/06/[address] [facility] ED Nursing Note Faxed consent form for Addiction medicine and Peer assistant field hockey coach pamphlet to [facility] Esme Jeter RN 03/06/23 1301 Esme Jeter RN 03/06/[address] [facility] ED Nursing Note MAT nurse unavailable until 11 am. Pt aware and will wait in waiting room until he can be evaluated Reyna Cason RN 03/06/[address] [facility] ED Provider Noteon ED Provider Note EMERGENCY DEPARTMENT ENCOUNTER Pt Name: Ness Beaver Birthdate 1980 Date of evaluation: 03/06/2023 ED Provider: Maribeth Veliz APRN Patient seen independently within my scope of practice with an Emergency Medicine attending available for supervision. CHIEF COMPLAINT Chief Complaint Patient presents with Addiction Problem Sent from [place] via Dr. Uribe to see MAT nurse. Acc was consulted from [place] via telehealth. Pt stated on 16/4 mg suboxone via telehealth. Now stating on 09/30 and prescription endorses this. His goal is to transition to methadone and went to [place] today through [facility] but was unable to dose due to them not having his information. They sent him to [facility]. Unable to dose methadone as a new prescription but per addiction consult plan is to increase dose of suboxone. HISTORY OF PRESENT ILLNESS (Location/Symptom, Timing/Onset, Context/Setting, Quality, Duration, Modifying Factors, Severity) Note limiting factors. I wore appropriate PPE for the entirety of this encounter. HPI Ness Beaver is a 42 y.o. who presents to the emergency department from [facility] for Suboxone dosing. Patient states that his Suboxone therapy was discontinued on 21 February due to elevated liver enzymes. Patient states he was then sent to [facility] due to suicidal ideation. Suboxone therapy restarted on 22 February at 4 mg daily. Patient has been titrated up to 8 mg daily with his last dose yesterday. He does however state that this dose has not been sufficient for managing withdrawal symptoms. There was a misunderstanding at [facility] at which time it was understood that patient was on 16 mg daily of Suboxone and still needed an increase in dose. Because of this patient was sent to [facility] to be seen by addiction medicine physician. Patient does have 6 films of 8/2 Suboxone on him. Has appointment to transfer to methadone on 03/10/2023 at [facility]. Patient endorses some chills, mild nausea, mild [...] to display (more content not included)... Normal [facility] ED Provider Note I did not participate in care of this patient Maribeth Veliz, TENTER FEEDER 03/06/23 [address] [facility] ED Provider Note EMERGENCY DEPARTMENT ENCOUNTER [...] to detox. Was dropped off here by [employer] recovery to sort out a dose. HISTORY OF PRESENT ILLNESS (Location/Symptom, Timing/Onset, Context/Setting, Quality, Duration, Modifying Factors, Severity) Note limiting factors. I wore appropriate PPE for the entirety of this encounter. HPI 42-year-old male presents emergency department today seeking methadone initiation. Is currently at [facility] [employer] [facility] and was dropped off here for possible emergency dose. He was taken to [facility] and they have an appointment for him [...] No Drug use: No Comment: methadone SCREENINGS [place] Coma Scale Best Eye Response: Spontaneous Best Verbal Response: Oriented Best Motor Response: Follows commands Sophia Coma Scale Score: 15 PHYSICAL EXAM ED Triage Vitals Temp Heart Rate Resp BP 03/06/23 0703/06/23 0703/06/23 0727 03/06/23 0727 36.6 ?C (97.8 ?F) [...] [facility] (Per Emergency Physician): Interpretation per the [...] today seeking methadone initiation. Is currently at [place] [employer] and was dropped off here for possible emergency dose. He was taken to [facility] and they have an appointment for him on Wednesday but cannot initiate until then unless he has a cancellation there. He denies any alcohol use. Last used IV drugs on January 27. He last used methadone in November of this year. He states it was helping him. Of note he cur (more content not included)... Normal [facility] HEPATIC FUNCTION PANELon Albumin [Mass/Vol] 4.2 g/dL Normal 3.5-5.[address] [facility] Comment on above: Performed By: #### L AB20 ####Case Assistant: STEPHANIE GONZALES ([phone])[facility] [place] (SBHLAB)[address] ALP [Catalytic activity/Vol] 71 U/L Normal 38-126 [facility] Comment on above: Performed By: #### L AB20 ####Case Assistant: STEPHANIE GONZALES ([phone])[facility] [place] (SBHLAB)[address] ALT [Catalytic activity/Vol] 106 U/L High 0-49 [facility] Comment on above: Performed By: #### L AB20 ####Case Assistant: STEPHANIE GONZALES ([phone])[facility] [place] (SBHLAB)[address] AST [Catalytic activity/Vol] 60 U/L High 15-46 [facility] Comment on above: Performed By: #### L AB20 ####Case Assistant: STEPHANIE GONZALES ([phone])[facility] [place] (SBHLAB)[address] Bilirubin [Mass/Vol] 0.7 mg/dL Normal 0.2-1.3 [facility] Comment on above: Performed By: #### L AB20 ####Case Assistant: STEPHANIE GONZALES ([id number])[facility] ([facility])[address] Bilirubin.indirect [Mass/Vol] 0.0 mg/dL Normal 0.0-0.3 [facility] Comment on above: Performed By: #### L AB20 ####Case Assistant: STEPHANIE GONZALES ([phone])[facility] (SBHLAB)[address] Protein [Mass/Vol] 7.6 g/dL Normal 6.3-8.2 [facility] Comment on above: Performed By: #### L AB20 ####Case Assistant: STEPHANIE GONZALES ([id number])[facility] [place] (SBHLAB)[address] Hepatic function 2000 panelo n 03-06-2023 Albumin [Mass/Vol] 4.2 g/dL 3.5 - 5.0 g/dL [facility] ALP [Catalytic activity/Vol] 71 U/L 38 - 126 U/L [facility] ALT [Catalytic activity/Vol] 106 U/L High 0 - 49 U/L [facility] AST [Catalytic activity/Vol] 60 U/L High 15 - 46 U/L [facility] Bilirubin [Mass/Vol] 0.7 mg/dL 0.2 - 1 .3 mg/dL [facility] Bilirubin.conjugated [Mass/Vol] 0.0 mg/dL 0.0 - 0.3 mg/dL [facility] Interpretation and review of laboratory results Abnormal [facility] Protein [Mass/Vol] 7.6 g/dL 6.3 - 8.2 g/dL [facility] SIGIFREDO Antinuclear Antibodieson 03-02-2023 Antinuclear Abs, IFA Positive Critically abnormal . [facility] Comment on above: Order Comment: Reaso n for Exam Elevated liver enzymes Result Comment: Nega tive <1:80 Borderline 1:80 Positive >1:80 Performed By: #### H AABT, SMAB, HBV PCR, HCV RX PCR, HAAB, L-K MICRO, HEMOCHROM, HCBIGM, IGG, SIGIFREDO, HBSAB, HBS AB QUANT, CERULOP, MITOM2, HBSAG, HBCAB, ALPHA PHEN #### [facility] , #### [place], HEPATIC #### [facility] [address] Homogeneous Pattern 1:80 Normal . [facility] Comment on above: Order Comment: Reaso n for Exam Elevated liver enzymes Result Comment: ICAP nomenclature: AC-1 Performed By: #### H AABT, SMAB, HBV PCR, HCV RX PCR, HAAB, L-K MICRO, HEMOCHROM, HCBIGM, IGG, SIGIFREDO, HBSAB, HBS AB QUANT, CERULOP, MITOM2, HBSAG, HBCAB, ALPHA PHEN #### [facility] , #### [place], HEPATIC #### [facility] [address] Midbody Pattern 1:640 High . [facility] Comment on above: Order Comment: Reaso n for Exam Elevated liver enzymes Result Comment: ICAP nomenclature: AC-27 Performed By: #### H AABT, SMAB, HBV PCR, HCV RX PCR, HAAB, L-K MICRO, HEMOCHROM, HCBIGM, IGG, SIGIFREDO, HBSAB, HBS AB QUANT, CERULOP, MITOM2, HBSAG, HBCAB, ALPHA PHEN #### [facility] , #### [place], HEPATIC #### [facility] [address] Note 1 Normal . [facility] Comment on above: Order Comment: Reaso n for Exam Elevated liver enzymes Result Comment: Kristine arnold Potential Disease Association Homogeneous Systemic Lupus Erythematosus, Drug Induced Systemic Lupus Erythematosus, Chronic Autoimmune hepatitis, Juvenile Idiopathic Arthritis Speckled Sjogren Syndrome, Systemic Lupus Erythematosus, Subacute Cutaneous Lupus, Lupus, Congenital Heart Block, Mixed Connective Tissue Disease, Scleroderma-diffuse, Scleroderma-Autoimmune Myositis Overlap Syndrome, Systemic Lupus Lbkfbgajoanju-Ionvftstkdu-Kwdneliaut Myositis Overlap Syndrome, Systemic Autoimmune Rheumatic Disease, [...] Cytopenias, Linear Scleroderma, Antiphospholipid Syndrome Performed at: - [facility] [place] [id number] Lead Auditor: Ta Norris PhD, Phone: [phone] Performed By: #### H AABT, SMAB, HBV PCR, HCV RX PCR, HAAB, L-K MICRO, HEMOCHROM, HCBIGM, IGG, SIGIFREDO, HBSAB, HBS AB QUANT, CERULOP, MITOM2, HBSAG, HBCAB, ALPHA PHEN #### [facility] , #### [place], HEPATIC #### [address] Speckled Pattern 1:80 Normal . [facility] Comment on above: Order Comment: Reaso n for Exam Elevated liver enzymes Result Comment: ICAP nomenclature: AC-2,4,5,29 Performed By: #### H AABT, SMAB, HBV PCR, HCV RX PCR, HAAB, L-K MICRO, HEMOCHROM, HCBIGM, IGG, SIGIFREDO, HBSAB, HBS AB QUANT, CERULOP, MITOM2, HBSAG, HBCAB, ALPHA PHEN #### [facility] , #### [place], HEPATIC #### [facility] [address] Ivzoc-7-Cqpdpiuqevf Phenotyp nadeem 03-02-2023 Alpha 1 Anti-Trypsin 126 mg/dL Normal 101-187 [facility] Comment on above: Order Comment: Reaso n for Exam Elevated liver enzymes Performed By: #### H AABT, SMAB, HBV PCR, HCV RX PCR, HAAB, L-K MICRO, HEMOCHROM, HCBIGM, IGG, SIGIFREDO, HBSAB, HBS AB QUANT, CERULOP, MITOM2, HBSAG, HBCAB, ALPHA PHEN #### [facility] , #### [place], HEPATIC #### [facility] [address] Phenotype (P1) MM Normal . [facility] Comment on above: Order Comment: Reaso n for Exam Elevated liver enzymes Result Comment: Phen otype Population A-1-AT Concentration* [...] Ranges used to confirm phenotype. Performed at: [address] [id number] Lead Auditor: Ta Norris PhD, Phone: [phone] Performed at: [facility] [id number] Lead Auditor: Alexys Cooper MD, Phone: [phone] Performed By: #### H AABT, SMAB, HBV PCR, HCV RX PCR, HAAB, L-K MICRO, HEMOCHROM, HCBIGM, IGG, SIGIFREDO, HBSAB, HBS AB QUANT, CERULOP, MITOM2, HBSAG, HBCAB, ALPHA PHEN #### [facility] , #### [place], HEPATIC #### [address] Ceruloplasminon 03-02-2023 Ceruloplasmin 20.7 mg/dL Normal 16.0-31.0 [facility] Comment on above: Order Comment: Reaso n for Exam Elevated liver enzymes Result Comment: Perf ormed at: [facility] [id number] Lead Auditor: Ta Norris PhD, Phone: [phone] PERFORMED BY: [place] [address] PATHOLOGIST MANAGER INCOME TAX CHRISTOPHER CARTER M.D. Performed By: #### H AABT, SMAB, HBV PCR, HCV RX PCR, HAAB, L-K MICRO, HEMOCHROM, HCBIGM, IGG, SIGIFREDO, HBSAB, HBS AB QUANT, CERULOP, MITOM2, HBSAG, HBCAB, ALPHA PHEN #### [facility] , #### [place], HEPATIC #### [address] Ferritinon 03-02-2023 Ferritin [Mass/Vol] 86.4 ng/mL Normal 23.9-336.2 [facility] Comment on above: Order Comment: Reaso n for Exam Elevated liver enzymes Result Comment: PERF ORMED BY: [place] [address] PATHOLOGIST MANAGER INCOME TAX CHRISTOPHER CARTER M.D. Performed By: #### H AABT, SMAB, HBV PCR, HCV RX PCR, HAAB, L-K MICRO, HEMOCHROM, HCBIGM, IGG, SGIIFREDO, HBSAB, HBS AB QUANT, CERULOP, MITOM2, HBSAG, HBCAB, ALPHA PHEN #### [facility] , #### [place], HEPATIC #### [address] Hep B Real-Time PCR, Quanton 03-02-2023 HBV As IU/mL <10 Normal . [facility] Comment on above: Order Comment: Reaso n for Exam Elevated liver enzymes Result Comment: HBV DNA detected Performed By: #### H AABT, SMAB, HBV PCR, HCV RX PCR, HAAB, L-K MICRO, HEMOCHROM, HCBIGM, IGG, SIGIFREDO, HBSAB, HBS AB QUANT, CERULOP, MITOM2, HBSAG, HBCAB, ALPHA PHEN #### [facility] , #### [place], HEPATIC #### [address] Log10 HBV (As IU/mL) Normal . [facility] Comment on above: Order Comment: Reaso n for Exam Elevated liver enzymes Result Comment: Resu lt Units: log10 IU/mL Unable to calculate result since non-numeric result obtained for component test. Performed By: #### H AABT, SMAB, HBV PCR, HCV RX PCR, HAAB, L-K MICRO, HEMOCHROM, HCBIGM, IGG, SIGIFREDO, HBSAB, HBS AB QUANT, CERULOP, MITOM2, HBSAG, HBCAB, ALPHA PHEN #### [facility] , #### [place], HEPATIC #### [address] Test Information: Normal . [facility] Comment on above: Order Comment: Reaso n for Exam Elevated liver enzymes Result Comment: The reportable range for this assay is 10 IU/mL to 1 billion IU/mL. Performed at: - [facility] [id number] Lead Auditor: Alexys Cooper MD, Phone: [phone] PERFORMED BY: [place] [address] PATHOLOGIST MANAGER INCOME TAX CHRISTOPHER CARTER M.D. Performed By: #### H AABT, SMAB, HBV PCR, HCV RX PCR, HAAB, L-K MICRO, HEMOCHROM, HCBIGM, IGG, SIGIFREDO, HBSAB, HBS AB QUANT, CERULOP, MITOM2, HBSAG, HBCAB, ALPHA PHEN #### [facility] , #### [place], HEPATIC #### [facility] [address] Result Comment: The quantitative range of this assay is 15 IU/mL to 100 million IU/mL. Hep C Ab wRfx to Qnt PCRon 0 03-02-2023 HCV Log10 3.344 Normal . [facility] Comment on above: Order Comment: Reaso n for Exam Elevated liver enzymes Result Comment: Resu lt Units: log10 IU/mL Performed By: #### H AABT, SMAB, HBV PCR, HCV RX PCR, HAAB, L-K MICRO, HEMOCHROM, HCBIGM, IGG, SIGIFREDO, HBSAB, HBS AB QUANT, CERULOP, MITOM2, HBSAG, HBCAB, ALPHA PHEN #### [facility] , #### [place], HEPATIC #### [address] Hepatitis C Quantitation 2210 Normal . [facility] Comment on above: Order Comment: Reaso n for Exam Elevated liver enzymes Performed By: #### H AABT, SMAB, HBV PCR, HCV RX PCR, HAAB, L-K MICRO, HEMOCHROM, HCBIGM, IGG, SIGIFREDO, HBSAB, HBS AB QUANT, CERULOP, MITOM2, HBSAG, HBCAB, ALPHA PHEN #### [facility] , #### [place], HEPATIC #### [address] Hepatitis C Virus Antibody Reactive Critically abnormal Non Reactive [facility] Comment on above: Order Comment: Reaso n for Exam Elevated liver enzymes Performed By: #### H AABT, SMAB, HBV PCR, HCV RX PCR, HAAB, L-K MICRO, HEMOCHROM, HCBIGM, IGG, SIGIFREDO, HBSAB, HBS AB QUANT, CERULOP, MITOM2, HBSAG, HBCAB, ALPHA PHEN #### [facility] , #### [place], HEPATIC #### [address] Interpretation Normal . [facility] Comment on above: Order Comment: Reaso n for Exam Elevated liver enzymes Result Comment: Posi tive HCV antibody screen with the presence of HCV RNA is consistent with active infection. Performed at: [facility] [id number] Lead Auditor: Ta Norris PhD, Phone: [phone] Performed at: [facility] [id number] Lead Auditor: Alexys Cooper MD, Phone: [phone] Performed By: #### H AABT, SMAB, HBV PCR, HCV RX PCR, HAAB, L-K MICRO, HEMOCHROM, HCBIGM, IGG, SIGIFREDO, HBSAB, HBS AB QUANT, CERULOP, MITOM2, HBSAG, HBCAB, ALPHA PHEN #### [facility] , #### [place], HEPATIC #### [facility] [address] Hepatic Panelon 03-02-2023 Albumin [Mass/Vol] 4.5 g/dL Normal 3.5-5.7 [facility] Comment on above: Order Comment: Reaso n for Exam Elevated liver enzymes Performed By: #### H AABT, SMAB, HBV PCR, HCV RX PCR, HAAB, L-K MICRO, HEMOCHROM, HCBIGM, IGG, SIGIFREDO, HBSAB, HBS AB QUANT, CERULOP, MITOM2, HBSAG, HBCAB, ALPHA PHEN #### [facility] , #### [place], HEPATIC #### [facility] [address] Albumin/Globulin [Mass ratio] 1.5 {ratio} Normal [facility] Comment on above: Order Comment: Reaso n for Exam Elevated liver enzymes Performed By: #### H AABT, SMAB, HBV PCR, HCV RX PCR, HAAB, L-K MICRO, HEMOCHROM, HCBIGM, IGG, SIGIFREDO, HBSAB, HBS AB QUANT, CERULOP, MITOM2, HBSAG, HBCAB, ALPHA PHEN #### [facility] , #### [place], HEPATIC #### [facility] [address] ALP [Catalytic activity/Vol] 84 U/L Normal 34-104 [facility] Comment on above: Order Comment: Reaso n for Exam Elevated liver enzymes Performed By: #### H AABT, SMAB, HBV PCR, HCV RX PCR, HAAB, L-K MICRO, HEMOCHROM, HCBIGM, IGG, SIGIFREDO, HBSAB, HBS AB QUANT, CERULOP, MITOM2, HBSAG, HBCAB, ALPHA PHEN #### [facility] , #### [place], HEPATIC #### [address] ALT [Catalytic activity/Vol] 78 U/L High 7-52 [facility] Comment on above: Order Comment: Reaso n for Exam Elevated liver enzymes Performed By: #### H AABT, SMAB, HBV PCR, HCV RX PCR, HAAB, L-K MICRO, HEMOCHROM, HCBIGM, IGG, SIGIFREDO, HBSAB, HBS AB QUANT, CERULOP, MITOM2, HBSAG, HBCAB, ALPHA PHEN #### [facility] , #### [place], HEPATIC #### [place] [address] [place] AST [Catalytic activity/Vol] 46 U/L High 13-39 [facility] Comment on above: Order Comment: Reaso n for Exam Elevated liver enzymes Performed By: #### H AABT, SMAB, HBV PCR, HCV RX PCR, HAAB, L-K MICRO, HEMOCHROM, HCBIGM, IGG, SIGIFREDO, HBSAB, HBS AB QUANT, CERULOP, MITOM2, HBSAG, HBCAB, ALPHA PHEN #### [facility] , #### [place], HEPATIC #### [place] [address] [place] Bilirubin [Mass/Vol] 0.5 mg/dL Normal 0.3-1.0 [facility] Comment on above: Order Comment: Reaso n for Exam Elevated liver enzymes Performed By: #### H AABT, SMAB, HBV PCR, HCV RX PCR, HAAB, L-K MICRO, HEMOCHROM, HCBIGM, IGG, SIGIFREDO, HBSAB, HBS AB QUANT, CERULOP, MITOM2, HBSAG, HBCAB, ALPHA PHEN #### [facility] , #### [place], [place]IC #### [address] Bilirubin,Indirect 0.3 mg/dL Normal [facility] Comment on above: Order Comment: Reaso n for Exam Elevated liver enzymes Performed By: #### H AABT, SMAB, HBV PCR, HCV RX PCR, HAAB, L-K MICRO, HEMOCHROM, HCBIGM, IGG, SIGIFREDO, HBSAB, HBS AB QUANT, CERULOP, MITOM2, HBSAG, HBCAB, ALPHA PHEN #### [facility] , #### [place], [place]PATIC #### [address] Bilirubin.indirect [Mass/Vol] 0.20 mg/dL High 0.03-0.18 [facility] Comment on above: Order Comment: Reaso n for Exam Elevated liver enzymes Performed By: #### H AABT, SMAB, HBV PCR, HCV RX PCR, HAAB, L-K MICRO, HEMOCHROM, HCBIGM, IGG, SIGIFREDO, HBSAB, HBS AB QUANT, CERULOP, MITOM2, HBSAG, HBCAB, ALPHA PHEN #### [facility] , #### [place], HEPATIC #### [address] Globulin (S) [Mass/Vol] 3.0 g/dL Normal [facility] Comment on above: Order Comment: Reaso n for Exam Elevated liver enzymes Performed By: #### H AABT, SMAB, HBV PCR, HCV RX PCR, HAAB, L-K MICRO, HEMOCHROM, HCBIGM, IGG, SIGIFREDO, HBSAB, HBS AB QUANT, CERULOP, MITOM2, HBSAG, HBCAB, ALPHA PHEN #### [facility] , #### [place], HEPATIC #### [address] Protein [Mass/Vol] 7.5 g/dL Normal 6.4-8.9 [facility] Comment on above: Order Comment: Reaso n for Exam Elevated liver enzymes Performed By: #### H AABT, SMAB, HBV PCR, HCV RX PCR, HAAB, L-K MICRO, HEMOCHROM, HCBIGM, IGG, SIGIFREDO, HBSAB, HBS AB QUANT, CERULOP, MITOM2, HBSAG, HBCAB, ALPHA PHEN #### [facility] , #### [place], HEPATIC #### [facility] [address] Hepatitis A Antibody IgMon 0 03-02-2023 Hepatitis A Antibody IgM Negative Normal Negative [facility] Comment on above: Order Comment: Reaso n for Exam Elevated liver enzymes Performed By: #### H AABT, SMAB, HBV PCR, HCV RX PCR, HAAB, L-K MICRO, HEMOCHROM, HCBIGM, IGG, SIGIFREDO, HBSAB, HBS AB QUANT, CERULOP, MITOM2, HBSAG, HBCAB, ALPHA PHEN #### [facility] , #### [place], HEPATIC #### [facility] [address] Hepatitis A Antibody Totalon 03-02-2023 Hepatitis A Antibody Total Negative Normal Negative [facility] Comment on above: Order Comment: Reaso n [...] total antibody results to IgM (e.g., panel #[id number] HAV Antibody w/ Rfx). Performed By: #### H AABT, SMAB, HBV PCR, HCV RX PCR, HAAB, L-K MICRO, HEMOCHROM, HCBIGM, IGG, SIGIFREDO, HBSAB, HBS AB QUANT, CERULOP, MITOM2, HBSAG, HBCAB, ALPHA PHEN #### [facility] , #### [place], HEPATIC #### [facility] [address] Hepatitis B Core Antibodyon 03-02-2023 Hepatitis B Core Antibody Positive Critically abnormal Negative [facility] Comment on above: Order Comment: Reaso n for Exam Elevated liver enzymes Performed By: #### H AABT, SMAB, HBV PCR, HCV RX PCR, HAAB, L-K MICRO, HEMOCHROM, HCBIGM, IGG, SIGIFREDO, HBSAB, HBS AB QUANT, CERULOP, MITOM2, HBSAG, HBCAB, ALPHA PHEN #### [facility] , #### [place], HEPATIC #### [address] Hepatitis B Core Antibody Ig Mon 03-02-2023 Hepatitis B Core Antibody IgM Negative Normal Negative [facility] Comment on above: Order Comment: Reaso n for Exam Elevated liver enzymes Result Comment: Perf ormed at: - [facility] [address] [id number] Lead Auditor: Ta Norris PhD, Phone: [phone] Performed By: #### H AABT, SMAB, HBV PCR, HCV RX PCR, HAAB, L-K MICRO, HEMOCHROM, HCBIGM, IGG, SIGIFREDO, HBSAB, HBS AB QUANT, CERULOP, MITOM2, HBSAG, HBCAB, ALPHA PHEN #### [facility] , #### [place], HE[place]IC #### [address] Hepatitis B Surface Ab, Khanh ton 03-02-2023 Hepatitis B Surface Ab, Quant <3.1 Low Immunity>9.9 [facility] Comment on above: Order Comment: Reaso n for Exam Elevated liver enzymes Result Comment: Stat us of Immunity Anti-HBs Level Inconsistent with Immunity 0.0 - 9.9 Consistent with Immunity >9.9 PERFORMED BY: [place] [address] PATHOLOGIST MANAGER INCOME TAX JIANLAN SUN M.D. Performed By: #### H AABT, SMAB, HBV PCR, HCV RX PCR, HAAB, L-K MICRO, HEMOCHROM, HCBIGM, IGG, SIGIFREDO, HBSAB, HBS AB QUANT, CERULOP, MITOM2, HBSAG, HBCAB, ALPHA PHEN #### [facility] , #### [place], HEPATIC #### [facility] [address] Hepatitis B Surface Antibody on 03-02-2023 Hepatitis B Surface Antibody Non-Reactive Normal . [facility] Comment on above: Order Comment: Reaso n for Exam Elevated liver enzymes Result Comment: Non Reactive: Inconsistent with immunity, less than 10 mIU/mL Reactive: Consistent with immunity, greater than 9.9 mIU/mL Performed By: #### H AABT, SMAB, HBV PCR, HCV RX PCR, HAAB, L-K MICRO, HEMOCHROM, HCBIGM, IGG, SIGIFREDO, HBSAB, HBS AB QUANT, CERULOP, MITOM2, HBSAG, HBCAB, ALPHA PHEN #### [facility] , #### [place], [place]PATIC #### [address] Hepatitis B Surface Antigeno n 03-02-2023 HBsAg Screen Positive Critically abnormal Negative [facility] Comment on above: Order Comment: Reaso n for Exam Elevated liver enzymes Result Comment: Posi tive HBsAg verified by algorithm coupled with screening index. Performed By: #### H AABT, SMAB, HBV PCR, HCV RX PCR, HAAB, L-K MICRO, HEMOCHROM, HCBIGM, IGG, SIGIFREDO, HBSAB, HBS AB QUANT, CERULOP, MITOM2, HBSAG, HBCAB, ALPHA PHEN #### [facility] , #### [place], [place]IC #### [address] Hereditary Hemochromatosis,D NAon 03-02-2023 Hereditary Hemochromatosis Normal . [facility] Comment on above: Order Comment: Reaso n for Exam Elevated liver enzymes Result Comment: Resu lt: c.845G>A (p.Sju034Lqw) - Not Detected c.187C>G (p.Skb11Yvu) - Not Detected c.193A>T (p.Vpi93Aqb) - Not Detected Not associated with increased [...] for patients who are homozygous for c.845G>A (p.Aik483Apz) and have yet to experience clinical symptoms. Comments: The most common HFE variants associated with hereditary hemochromatosis are c.845G>A (p.Hjk257Dhh), c.187C>G (p.Ime13Ubu), c.193A>T (p.Dri79Zat). While patients homozygous for c.845G>A (p.Iwn861Nny) are the most likely to present clinical symptoms, less than 10% develop clinically significant iron overload with tissue and organ damage. Genetic counseling is recommended to discuss the potential clinical implications of positive results, as well as recommendations for testing family members. Genetic Coordinators are available for health care providers to discuss results at [phone] Test Details: Three variants analyzed: c.845G>A (p.Ell811Ecg), commonly referred to as C282Y c.187C>G (p.Hum86Nek), commonly referred to as H63D c.193A>T (p.Nqv34Zic), commonly referred to as S65C Methods/Limitations: DNA [...] developed and its performance characteristics determined by [facility]. It has not been cleared or approved by the Food and Drug Administration. References: Ken BR, Heber PC, Aidan KV, Chidi LW, Joseph ; [employer]. Diagnosis and management of hemochromatosis: 2011 practice guideline by the [employer]. Hepatology. 2011 Aug;54(1):328-43. doi: 10.1002/hep.75053. PMID: 97794022; PMCID: AFN3633243. Renetta G, Thalia P, Bryan DW, Patricia H, Candy O, Joe S, Elias I, Markos M, Saskia S. [facility] best practice guidelines for the molecular genetic diagnosis of hereditary hemochromatosis (HH). Eur J Hum Sia. 2016 May;24(4):479-95. doi: 10.1038/ejhg.2015.128. Epub 2014Sep 05. PMID: 21357556; PMCID: EGX1691679. Performed By: #### H AABT, SMAB, HBV PCR, HCV RX PCR, HAAB, L-K MICRO, HEMOCHROM, HCBIGM, IGG, SIGIFREDO, HBSAB, HBS AB QUANT, CERULOP, MITOM2, HBSAG, HBCAB, ALPHA PHEN #### [facility] , #### [place], [place] #### [address] Reviewed by: Normal . [facility] Comment on above: Order Comment: Reaso n for Exam Elevated liver enzymes Result Comment: Daisha Hwang, Ph.D., FACMG Performed at: [facility] [address] [place], [place] [id number] Lead Auditor: Tato Foreman [facility], Phone: [phone] PERFORMED BY: [place] [address] PATHOLOGIST MANAGER INCOME TAX CHRISTOPHER CARTER M.D. Performed By: #### H AABT, SMAB, HBV PCR, HCV RX PCR, HAAB, L-K MICRO, HEMOCHROM, HCBIGM, IGG, SIGIFREDO, HBSAB, HBS AB QUANT, CERULOP, MITOM2, HBSAG, HBCAB, ALPHA PHEN #### [facility] , #### [place], HEPATIC #### [facility] [address] Immunoglobulin Dawit Immunoglobulin G 1279 mg/dL Normal 603-1613 [facility] Comment on above: Order Comment: Reaso n for Exam Elevated liver enzymes Result Comment: Perf ormed at: [address] [id number] Lead Auditor: Ta Norris PhD, Phone: [phone] Performed By: #### H AABT, SMAB, HBV PCR, HCV RX PCR, HAAB, L-K MICRO, HEMOCHROM, HCBIGM, IGG, SIGIFREDO, HBSAB, HBS AB QUANT, CERULOP, MITOM2, HBSAG, HBCAB, ALPHA PHEN #### [facility] , #### [place], [place] #### [address] Liver-Kidney Microsomal Abon 03-02-2023 Liver-Kidney Microsomal Ab 1.2 Normal 0.0-20.0 [facility] Comment on above: Order Comment: Reaso n for Exam Elevated liver enzymes Result Comment: Nega tive 0.0 - 20.0 Equivocal 20.1 - 24.9 Positive >24.9 LKM type 1 antibodies are detected in patients with autoimmune hepatitis type 2 and in up to 8% of patients with chronic HCV infection. Performed at: [address] [id number] Lead Auditor: Ta Norris PhD, Phone: [phone] Performed By: #### H AABT, SMAB, HBV PCR, HCV RX PCR, HAAB, L-K MICRO, HEMOCHROM, HCBIGM, IGG, SIGIFREDO, HBSAB, HBS AB QUANT, CERULOP, MITOM2, HBSAG, HBCAB, ALPHA PHEN #### [facility] , #### [place], HEPATIC #### [facility] [address] Mitochondrial (M2) Antibodyo n 03-02-2023 Mitochondrial (M2) Antibody <20.0 Normal 0.0-20.0 [facility] Comment on above: Order Comment: Reaso n for Exam Elevated liver enzymes Result Comment: Nega tive 0.0 - 20.0 Equivocal 20.1 - 24.9 Positive >24.9 Mitochondrial (M2) Antibodies are found in 90-96% of patients with primary biliary cirrhosis. Performed By: #### H AABT, SMAB, HBV PCR, HCV RX PCR, HAAB, L-K MICRO, HEMOCHROM, HCBIGM, IGG, SIGIFREDO, HBSAB, HBS AB QUANT, CERULOP, MITOM2, HBSAG, HBCAB, ALPHA PHEN #### [facility] , #### [place], [place] #### [address] Smooth Muscle Antibodyon Smooth Muscle Antibody 8 Normal 0-19 [facility] Comment on above: Order Comment: Reaso n for Exam Elevated liver enzymes Result Comment: Nega tive 0 - 19 Weak positive 20 - 30 Moderate to strong positive >30 Actin Antibodies are found in 52-85% of patients with autoimmune hepatitis or chronic active hepatitis and in 22% of patients with primary biliary cirrhosis. Performed By: #### H AABT, SMAB, HBV PCR, HCV RX PCR, HAAB, L-K MICRO, HEMOCHROM, HCBIGM, IGG, SIGIFREDO, HBSAB, HBS AB QUANT, CERULOP, MITOM2, HBSAG, HBCAB, ALPHA PHEN #### [facility] , #### [place], [place] #### [address] Alanine aminotransferase [En zymatic activity/volume] in Serum or PlasmaOrdered By: Mckenzie Cherry on 02-16-2023 ALT [Catalytic activity/Vol] 747 U/L High 7-52 [facility] Comment on above: Performed By: #### H AABT, SMAB, HBV PCR, HCV RX PCR, HAAB, L-K MICRO, HEMOCHROM, HCBIGM, IGG, SIGIFREDO, HBSAB, HBS AB QUANT, CERULOP, MITOM2, HBSAG, HBCAB, ALPHA PHEN #### [facility] , #### [place], HEPATIC #### [facility] [address] [place] [address] [place] Albumin [Mass/volume] in Ser um or Plasma by Bromocresol green (BCG) dye binding methoOrdered By: Mckenzie Cherry on 02-16-2023 Albumin BCG dye [Mass/Vol] 4.7 g/dL 3.5-5.7 [facility] Alkaline phosphatase [Enzyma tic activity/volume] in Serum or PlasmaOrdered By: Mckenzie Cherry on 02-16-2023 ALP [Catalytic activity/Vol] 231 U/L High 34-104 [facility] Comment on above: Performed By: #### H AABT, SMAB, HBV PCR, HCV RX PCR, HAAB, L-K MICRO, HEMOCHROM, HCBIGM, IGG, SIGIFREDO, HBSAB, HBS AB QUANT, CERULOP, MITOM2, HBSAG, HBCAB, ALPHA PHEN #### [facility] , #### [place], HEPATIC #### [facility] [address] [place] [address] [place] Anisocytosis [Presence] in B lood by Light microscopyOrdered By: Mckenzie Cherry on 02-16-2023 Anisocytosis Ql (Bld) Slight Normal [facility] Comment on above: Order Comment: Reaso n for Exam Elevated liver enzymes Performed By: #### H AABT, SMAB, HBV PCR, HCV RX PCR, HAAB, L-K MICRO, HEMOCHROM, HCBIGM, IGG, SIGIFREDO, HBSAB, HBS AB QUANT, CERULOP, MITOM2, HBSAG, HBCAB, ALPHA PHEN #### [facility] , #### [place], HEPATIC #### [facility] [address] [place] [address] [place] Aspartate aminotransferase [ Enzymatic activity/volume] in Serum or PlasmaOrdered By: Mckenzie Cherry on 02-16-2023 AST [Catalytic activity/Vol] 301 U/L High 13-39 [facility] Comment on above: Performed By: #### H AABT, SMAB, HBV PCR, HCV RX PCR, HAAB, L-K MICRO, HEMOCHROM, HCBIGM, IGG, SIGIFREDO, HBSAB, HBS AB QUANT, CERULOP, MITOM2, HBSAG, HBCAB, ALPHA PHEN #### [facility] , #### [place], [place] #### [facility] [address] Automated basophil %Ordered By: Mckenzie Keeermias on 02-16-2023 Basophils/100 WBC (Bld) 3.1 % Normal . [facility] Comment on above: Order Comment: Reaso n for Exam Elevated liver enzymes Performed By: #### H AABT, SMAB, HBV PCR, HCV RX PCR, HAAB, L-K MICRO, HEMOCHROM, HCBIGM, IGG, SIGIFREDO, HBSAB, HBS AB QUANT, CERULOP, MITOM2, HBSAG, HBCAB, ALPHA PHEN #### [facility] , #### [place], [place]IC #### [facility] [address] [place] [address] Automated basophil countOrde red By: Mckenzie Vidhyaermias on 02-16-2023 Basophils (Bld) [#/Vol] 0.2 10*3/uL Normal 0.0-0.2 [facility] Comment on above: Order Comment: Reaso n for Exam Elevated liver enzymes Performed By: #### H AABT, SMAB, HBV PCR, HCV RX PCR, HAAB, L-K MICRO, HEMOCHROM, HCBIGM, IGG, SIGIFREDO, HBSAB, HBS AB QUANT, CERULOP, MITOM2, HBSAG, HBCAB, ALPHA PHEN #### [facility] , #### [place], [place]IC #### [facility] [address] [place] [address] Automated blood monocyte cou ntOrdered By: Mckenzie Keeermias on 02-16-2023 Monocytes (Bld) [#/Vol] 0.3 10*3/uL Normal 0.0-0.8 [facility] Comment on above: Order Comment: Reaso n for Exam Elevated liver enzymes Performed By: #### H AABT, SMAB, HBV PCR, HCV RX PCR, HAAB, L-K MICRO, HEMOCHROM, HCBIGM, IGG, SIGIFREDO, HBSAB, HBS AB QUANT, CERULOP, MITOM2, HBSAG, HBCAB, ALPHA PHEN #### [facility] , #### [place], [place] #### [facility] [address] Automated eosinophil %Ordere d By: Mckenzie Cherry on 02-16-2023 Eosinophils/100 WBC (Bld) 1.5 % Normal . [facility] Comment on above: Order Comment: Reaso n for Exam Elevated liver enzymes Performed By: #### H AABT, SMAB, HBV PCR, HCV RX PCR, HAAB, L-K MICRO, HEMOCHROM, HCBIGM, IGG, SIGIFREDO, HBSAB, HBS AB QUANT, CERULOP, MITOM2, HBSAG, HBCAB, ALPHA PHEN #### [facility] , #### [place], [place] #### [address] Automated eosinophil countOr dered By: Mckenzie Cherry on 02-16-2023 Eosinophils (Bld) [#/Vol] 0.1 10*3/uL Normal 0.0-0.45 [facility] Comment on above: Order Comment: Reaso n for Exam Elevated liver enzymes Performed By: #### H AABT, SMAB, HBV PCR, HCV RX PCR, HAAB, L-K MICRO, HEMOCHROM, HCBIGM, IGG, SIGIFREDO, HBSAB, HBS AB QUANT, CERULOP, MITOM2, HBSAG, HBCAB, ALPHA PHEN #### [facility] , #### [place], [place] #### [address] Automated erythrocytes count in urine sediment (number/area)Ordered By: Mckenzie Cherry on 02-16-2023 RBC Auto (Urine sed) [#/Area] 0-1 [HPF] 0-4 [facility] Automated leukocytes count i n urine sediment (number/area)Ordered By: Mckenzie Dilip on 02-16-2023 WBC Auto (Urine sed) [#/Area] 3-4 [HPF] 0-4 [facility] Automated monocyte %Ordered By: Mckenzie Vidhyaermias on 02-16-2023 Monocytes/100 WBC (Bld) 4.1 % Normal . [facility] Comment on above: Order Comment: Reaso n for Exam Elevated liver enzymes Performed By: #### H AABT, SMAB, HBV PCR, HCV RX PCR, HAAB, L-K MICRO, HEMOCHROM, HCBIGM, IGG, SIGIFREDO, HBSAB, HBS AB QUANT, CERULOP, MITOM2, HBSAG, HBCAB, ALPHA PHEN #### [facility] , #### [place], HE[place]IC #### [facility] [address] Automated neutrophil %Ordere d By: Mckenzie Cherry on 02-16-2023 Neutrophils/100 WBC (Bld) 58.0 % Normal . [facility] Comment on above: Order Comment: Reaso n for Exam Elevated liver enzymes Performed By: #### H AABT, SMAB, HBV PCR, HCV RX PCR, HAAB, L-K MICRO, HEMOCHROM, HCBIGM, IGG, SIGIFREDO, HBSAB, HBS AB QUANT, CERULOP, MITOM2, HBSAG, HBCAB, ALPHA PHEN #### [facility] , #### [place], [place]IC #### [facility] [address] Automated urine color determ inationOrdered By: Mckenzie Cherry on 02-16-2023 Color (U) Yellow Normal Yellow [facility] Comment on above: Order Comment: Reaso n for Exam Elevated liver enzymes Performed By: #### H AABT, SMAB, HBV PCR, HCV RX PCR, HAAB, L-K MICRO, HEMOCHROM, HCBIGM, IGG, SIGIFREDO, HBSAB, HBS AB QUANT, CERULOP, MITOM2, HBSAG, HBCAB, ALPHA PHEN #### [facility] , #### [place], [place]IC #### [facility] [address] Bilirubin Test strip Ql (U)O rdered By: Mckenzie Keeermias on 02-16-2023 Bilirubin Ql (U) Negative Negative [facility] Bilirubin.total [Mass/volume ] in Serum or PlasmaOrdered By: Mckenzie Cherry on 02-16-2023 Bilirubin [Mass/Vol] 1.5 mg/dL High 0.3-1.0 [facility] Comment on above: Samples from patient s who have taken Naproxen have shown spurious elevation in Total Bilirubin levels. A metabolite of Naproxen, O-desmethylnaproxen, has been shown to interfere with the Jendrassik-Grof method for measuring Total Bilirubin. Result Comment: Samp les from patients who have taken Naproxen have shown spurious elevation in Total Bilirubin levels. A metabolite of Naproxen, O-desmethylnaproxen, has been shown to interfere with the Jendrassik-Grof method for measuring Total Bilirubin. Performed By: #### H AABT, SMAB, HBV PCR, HCV RX PCR, HAAB, L-K MICRO, HEMOCHROM, HCBIGM, IGG, SIGIFREDO, HBSAB, HBS AB QUANT, CERULOP, MITOM2, HBSAG, HBCAB, ALPHA PHEN #### [facility] , #### [place], [place]IC #### [facility] [address] [place] [address] [place] Calcium [Mass/volume] in Ser um or PlasmaOrdered By: Mckenzie Cherry on 02-16-2023 Calcium [Mass/Vol] 9.7 mg/dL Normal 8.6-10.3 [facility] Comment on above: Performed By: #### H AABT, SMAB, HBV PCR, HCV RX PCR, HAAB, L-K MICRO, HEMOCHROM, HCBIGM, IGG, SIGIFREDO, HBSAB, HBS AB QUANT, CERULOP, MITOM2, HBSAG, HBCAB, ALPHA PHEN #### [facility] , #### [place], [place] #### [address] Carbon dioxide, total [Moles /volume] in Serum or PlasmaOrdered By: Mckenzie Cherry on 02-16-2023 CO2 [Moles/Vol] 28.3 mmol/L Normal 21.0-31.0 [facility] Comment on above: Performed By: #### H AABT, SMAB, HBV PCR, HCV RX PCR, HAAB, L-K MICRO, HEMOCHROM, HCBIGM, IGG, SIGIFREDO, HBSAB, HBS AB QUANT, CERULOP, MITOM2, HBSAG, HBCAB, ALPHA PHEN #### [facility] , #### [place], [place]IC #### [facility] [address] Chloride [Moles/volume] in S pilar or PlasmaOrdered By: Mckenzie Cherry on 02-16-2023 Chloride [Moles/Vol] 100 mmol/L Normal 98-107 [facility] Comment on above: Performed By: #### H AABT, SMAB, HBV PCR, HCV RX PCR, HAAB, L-K MICRO, HEMOCHROM, HCBIGM, IGG, SIGIFREDO, HBSAB, HBS AB QUANT, CERULOP, MITOM2, HBSAG, HBCAB, ALPHA PHEN #### [facility] , #### [place], [place]IC #### [facility] [address] Comprehensive Metabolic Pane haroldo 02-16-2023 Albumin [Mass/Vol] 4.7 g/dL Normal 3.5-5.7 [facility] Comment on above: Performed By: #### H AABT, SMAB, HBV PCR, HCV RX PCR, HAAB, L-K MICRO, HEMOCHROM, HCBIGM, IGG, SIGIFREDO, HBSAB, HBS AB QUANT, CERULOP, MITOM2, HBSAG, HBCAB, ALPHA PHEN #### [facility] , #### [place], [place]IC #### [facility] [address] [place] [address] Creatinine Clr Calc Pharmacy 125.02 Normal [facility] Comment on above: Result Comment: PERF ORMED BY: [place] [address] PATHOLOGIST MANAGER INCOME TAX CHRISTOPHER CARTER M.D. Performed By: #### H AABT, SMAB, HBV PCR, HCV RX PCR, HAAB, L-K MICRO, HEMOCHROM, HCBIGM, IGG, SIGIFREDO, HBSAB, HBS AB QUANT, CERULOP, MITOM2, HBSAG, HBCAB, ALPHA PHEN #### [facility] , #### [place], [place]IC #### [facility] [address] GFR/1.73 sq M.predicted MDRD (S/P/Bld) [Vol rate/Area] mL/min/{1.73_m2} Normal [facility] Comment on above: Performed By: #### H AABT, SMAB, HBV PCR, HCV RX PCR, HAAB, L-K MICRO, HEMOCHROM, HCBIGM, IGG, SIGIFREDO, HBSAB, HBS AB QUANT, CERULOP, MITOM2, HBSAG, HBCAB, ALPHA PHEN #### [facility] , #### [place], [place]IC #### [address] Creatinine [Mass/volume] in Serum or PlasmaOrdered By: Mckenzie Cherry on 02-16-2023 Creatinine [Mass/Vol] 0.73 mg/dL Normal 0.70-1.30 [facility] Comment on above: Performed By: #### H AABT, SMAB, HBV PCR, HCV RX PCR, HAAB, L-K MICRO, HEMOCHROM, HCBIGM, IGG, SIGIFREDO, HBSAB, HBS AB QUANT, CERULOP, MITOM2, HBSAG, HBCAB, ALPHA PHEN #### [facility] , #### [place], [place]IC #### [facility] [address] [place] [address] [place] Dipstick and Microscopicon 1 04-19-2022 Appearance (U) Clear Normal Clear [facility] Comment on above: Order Comment: Reaso n for Exam Elevated liver enzymes Performed By: #### H AABT, SMAB, HBV PCR, HCV RX PCR, HAAB, L-K MICRO, HEMOCHROM, HCBIGM, IGG, SIGIFREDO, HBSAB, HBS AB QUANT, CERULOP, MITOM2, HBSAG, HBCAB, ALPHA PHEN #### [facility] , #### [place], HEPATIC #### [address] Bacteria,Urine None Seen Normal None Seen [facility] Comment on above: Order Comment: Reaso n for Exam Elevated liver enzymes Performed By: #### H AABT, SMAB, HBV PCR, HCV RX PCR, HAAB, L-K MICRO, HEMOCHROM, HCBIGM, IGG, SIGIFREDO, HBSAB, HBS AB QUANT, CERULOP, MITOM2, HBSAG, HBCAB, ALPHA PHEN #### [facility] , #### [place], HEPATIC #### [address] Bilirubin,Urine Negative Normal Negative The [facility] Comment on above: Order Comment: Reaso n for Exam Elevated liver enzymes Performed By: #### H AABT, SMAB, HBV PCR, HCV RX PCR, HAAB, L-K MICRO, HEMOCHROM, HCBIGM, IGG, SIGIFREDO, HBSAB, HBS AB QUANT, CERULOP, MITOM2, HBSAG, HBCAB, ALPHA PHEN #### [facility] , #### [place], HEPATIC #### [address] Glucose Ql (U) Normal Normal Normal [facility] Comment on above: Order Comment: Reaso n for Exam Elevated liver enzymes Performed By: #### H AABT, SMAB, HBV PCR, HCV RX PCR, HAAB, L-K MICRO, HEMOCHROM, HCBIGM, IGG, SIGIFREDO, HBSAB, HBS AB QUANT, CERULOP, MITOM2, HBSAG, HBCAB, ALPHA PHEN #### [facility] , #### [place], HEPATIC #### [address] Hyaline Casts,Urine None Seen Normal 0-8 [facility] Comment on above: Order Comment: Reaso n for Exam Elevated liver enzymes Result Comment: PERF ORMED BY: [place] [address] PATHOLOGIST MANAGER INCOME TAX CHRISTOPHER CARTER M.D. Performed By: #### H AABT, SMAB, HBV PCR, HCV RX PCR, HAAB, L-K MICRO, HEMOCHROM, HCBIGM, IGG, SIGIFREDO, HBSAB, HBS AB QUANT, CERULOP, MITOM2, HBSAG, HBCAB, ALPHA PHEN #### [facility] , #### [place], HEPATIC #### [address] Ketones Ql (U) Negative Normal Negative [facility] Comment on above: Order Comment: Reaso n for Exam Elevated liver enzymes Performed By: #### H AABT, SMAB, HBV PCR, HCV RX PCR, HAAB, L-K MICRO, HEMOCHROM, HCBIGM, IGG, SIGIFREDO, HBSAB, HBS AB QUANT, CERULOP, MITOM2, HBSAG, HBCAB, ALPHA PHEN #### [facility] , #### [place], [place]PATIC #### [address] Leukocyte esterase Test strip Ql (U) 1+ High Negative [facility] Comment on above: Order Comment: Reaso n for Exam Elevated liver enzymes Performed By: #### H AABT, SMAB, HBV PCR, HCV RX PCR, HAAB, L-K MICRO, HEMOCHROM, HCBIGM, IGG, SIGIFREDO, HBSAB, HBS AB QUANT, CERULOP, MITOM2, HBSAG, HBCAB, ALPHA PHEN #### [facility] , #### [place], [place]IC #### [address] Nitrite,Urine Negative Normal Negative [facility] Comment on above: Order Comment: Reaso n for Exam Elevated liver enzymes Performed By: #### H AABT, SMAB, HBV PCR, HCV RX PCR, HAAB, L-K MICRO, HEMOCHROM, HCBIGM, IGG, SIGIFREDO, HBSAB, HBS AB QUANT, CERULOP, MITOM2, HBSAG, HBCAB, ALPHA PHEN #### [facility] , #### [place], HEPATIC #### [address] Occult Blood,Urine Negative Normal Negative [facility] Comment on above: Order Comment: Reaso n for Exam Elevated liver enzymes Result Comment: PERF ORMED BY: [place] [address] PATHOLOGIST MANAGER INCOME TAX CHRISTOPHER CARTER M.D. Performed By: #### H AABT, SMAB, HBV PCR, HCV RX PCR, HAAB, L-K MICRO, HEMOCHROM, HCBIGM, IGG, SIGIFREDO, HBSAB, HBS AB QUANT, CERULOP, MITOM2, HBSAG, HBCAB, ALPHA PHEN #### [facility] , #### [place], [place]PATIC #### [address] Protein,Urine Negative Normal Negative [facility] Comment on above: Order Comment: Reaso n for Exam Elevated liver enzymes Performed By: #### H AABT, SMAB, HBV PCR, HCV RX PCR, HAAB, L-K MICRO, HEMOCHROM, HCBIGM, IGG, SIGIFREDO, HBSAB, HBS AB QUANT, CERULOP, MITOM2, HBSAG, HBCAB, ALPHA PHEN #### [facility] , #### [place], [place]PATIC #### [address] RBC LM.HPF (Urine sed) [#/Area] 0 /[HPF] Normal 0-4 [facility] Comment on above: Order Comment: Reaso n for Exam Elevated liver enzymes Performed By: #### H AABT, SMAB, HBV PCR, HCV RX PCR, HAAB, L-K MICRO, HEMOCHROM, HCBIGM, IGG, SIGIFREDO, HBSAB, HBS AB QUANT, CERULOP, MITOM2, HBSAG, HBCAB, ALPHA PHEN #### [facility] , #### [place], HEPATIC #### [place] [address] [place] Specificy [place],Urine 1.017 Normal 1.001-1.030 [facility] Comment on above: Order Comment: Reaso n for Exam Elevated liver enzymes Performed By: #### H AABT, SMAB, HBV PCR, HCV RX PCR, HAAB, L-K MICRO, HEMOCHROM, HCBIGM, IGG, SIGIFREDO, HBSAB, HBS AB QUANT, CERULOP, MITOM2, HBSAG, HBCAB, ALPHA PHEN #### [facility] , #### [place], [place]PATIC #### [address] Squamous Epithelial Cell,Urine 0-1 Normal 0-2 [facility] Comment on above: Order Comment: Reaso n for Exam Elevated liver enzymes Performed By: #### H AABT, SMAB, HBV PCR, HCV RX PCR, HAAB, L-K MICRO, HEMOCHROM, HCBIGM, IGG, SIGIFREDO, HBSAB, HBS AB QUANT, CERULOP, MITOM2, HBSAG, HBCAB, ALPHA PHEN #### [facility] , #### [place], [place]IC #### [address] Urobilinogen,Urine Normal Normal Normal [facility] Comment on above: Order Comment: Reaso n for Exam Elevated liver enzymes Performed By: #### H AABT, SMAB, HBV PCR, HCV RX PCR, HAAB, L-K MICRO, HEMOCHROM, HCBIGM, IGG, SIGIFREDO, HBSAB, HBS AB QUANT, CERULOP, MITOM2, HBSAG, HBCAB, ALPHA PHEN #### [facility] , #### [place], [place]PATIC #### [address] WBC,Urine 3-4 Normal 0-4 [facility] Comment on above: Order Comment: Reaso n for Exam Elevated liver enzymes Performed By: #### H AABT, SMAB, HBV PCR, HCV RX PCR, HAAB, L-K MICRO, HEMOCHROM, HCBIGM, IGG, SIGIFREDO, HBSAB, HBS AB QUANT, CERULOP, MITOM2, HBSAG, HBCAB, ALPHA PHEN #### [facility] , #### [place], [place]IC #### [facility] [address] Erythrocyte distribution wid th [Ratio] by Automated countOrdered By: Mckenzie Cherry on 02-16-2023 Erythrocyte distribution width (RBC) [Ratio] 15.7 % High 12.0-14.8 [facility] Comment on above: Order Comment: Reaso n for Exam Elevated liver enzymes Performed By: #### H AABT, SMAB, HBV PCR, HCV RX PCR, HAAB, L-K MICRO, HEMOCHROM, HCBIGM, IGG, SIGIFREDO, HBSAB, HBS AB QUANT, CERULOP, MITOM2, HBSAG, HBCAB, ALPHA PHEN #### [facility] , #### [place], [place]IC #### [address] Erythrocytes [#/volume] in B lood by Automated countOrdered By: Mckenzie Cherry on 02-16-2023 RBC (Bld) [#/Vol] 5.49 10*6/uL Normal 3.90-5.60 [facility] Comment on above: Order Comment: Reaso n for Exam Elevated liver enzymes Performed By: #### H AABT, SMAB, HBV PCR, HCV RX PCR, HAAB, L-K MICRO, HEMOCHROM, HCBIGM, IGG, SIGIFREDO, HBSAB, HBS AB QUANT, CERULOP, MITOM2, HBSAG, HBCAB, ALPHA PHEN #### [facility] , #### [place], HEPATIC #### [facility] [address] [place] [address] Glucose [Mass/volume] in Ser um or PlasmaOrdered By: Mckenzie Cherry on 02-16-2023 Glucose [Mass/Vol] 89 mg/dL Normal 70-100 [facility] Comment on above: ADA recommended refe rence rangeRandom Glucose Reference Range is dependent on time and content of last meal. Glucose of more than 200 mg/dL in a nonstressed, ambulatory subject supports the diagnosis of Diabetes Mellitus. Result Comment: Maidens om Glucose Reference Range is dependent on time and content of last meal. Glucose of more than 200 mg/dL in a nonstressed, ambulatory subject supports the diagnosis of Diabetes Mellitus. ADA recommended reference range Performed By: #### H AABT, SMAB, HBV PCR, HCV RX PCR, HAAB, L-K MICRO, HEMOCHROM, HCBIGM, IGG, SIGIFREDO, HBSAB, HBS AB QUANT, CERULOP, MITOM2, HBSAG, HBCAB, ALPHA PHEN #### [facility] , #### [place], HEPATIC #### [facility] [address] Hematocrit [Volume Fraction] of Blood by Automated countOrdered By: Mckenzie Cherry on 02-16-2023 Hematocrit (Bld) [Volume fraction] 45.5 % Normal 38.8-50.0 [facility] Comment on above: Order Comment: Reaso n for Exam Elevated liver enzymes Performed By: #### H AABT, SMAB, HBV PCR, HCV RX PCR, HAAB, L-K MICRO, HEMOCHROM, HCBIGM, IGG, SIGIFREDO, HBSAB, HBS AB QUANT, CERULOP, MITOM2, HBSAG, HBCAB, ALPHA PHEN #### [facility] , #### [place], [place]IC #### [address] Hemoglobin [Mass/volume] in BloodOrdered By: Mckenzie Cherry on 02-16-2023 Hemoglobin (Bld) [Mass/Vol] 14.9 g/dL Normal 13.0-17.0 [facility] Comment on above: Order Comment: Reaso n for Exam Elevated liver enzymes Performed By: #### H AABT, SMAB, HBV PCR, HCV RX PCR, HAAB, L-K MICRO, HEMOCHROM, HCBIGM, IGG, SIGIFREDO, HBSAB, HBS AB QUANT, CERULOP, MITOM2, HBSAG, HBCAB, ALPHA PHEN #### [facility] , #### [place], [place] #### [address] Ketones Auto test strip (U) [Mass/Vol]Ordered By: Mckenzie Cherry on 02-16-2023 Ketones (U) [Mass/Vol] Negative Negative [facility] - UrinalysisOrder ed By: Mckenzie Cherry on 02-16-2023 Hyaline casts LM Ql (Urine sed) None seen [LPF] 0-8 [facility] Leukocytes [#/volume] correc paul for nucleated erythrocytes in Blood by Automated counOrdered By: Mckenzie Cherry on 02-16-2023 WBC corrected for nucl RBC Auto (Bld) [#/Vol] 7.9 10*3/uL 4.1-10.5 [facility] Leukocytes [#/volume] in Blo od by Automated countOrdered By: Mckenzie Cherry on 02-16-2023 WBC (Bld) [#/Vol] 7.9 10*3/uL Normal 4.1-10.5 [facility] Comment on above: Order Comment: Reaso n for Exam Elevated liver enzymes Performed By: #### H AABT, SMAB, HBV PCR, HCV RX PCR, HAAB, L-K MICRO, HEMOCHROM, HCBIGM, IGG, SIGIFREDO, HBSAB, HBS AB QUANT, CERULOP, MITOM2, HBSAG, HBCAB, ALPHA PHEN #### [facility] , #### [place], [place]IC #### [facility] [address] [place] [address] [place] Lymphocytes [#/volume] in Bl ood by Automated countOrdered By: Mckenzie Cherry on 02-16-2023 Lymphocytes (Bld) [#/Vol] 2.6 10*3/uL Normal 1.00-4.8 [facility] Comment on above: Order Comment: Reaso n for Exam Elevated liver enzymes Performed By: #### H AABT, SMAB, HBV PCR, HCV RX PCR, HAAB, L-K MICRO, HEMOCHROM, HCBIGM, IGG, SIGIFREDO, HBSAB, HBS AB QUANT, CERULOP, MITOM2, HBSAG, HBCAB, ALPHA PHEN #### [facility] , #### [place], HEPATIC #### [facility] [address] [place] [address] [place] Lymphocytes/100 leukocytes i n Blood by Automated countOrdered By: Mckenzie Cherry on 02-16-2023 Lymphocytes/100 WBC (Bld) 33.3 % Normal . [facility] Comment on above: Order Comment: Reaso n for Exam Elevated liver enzymes Performed By: #### H AABT, SMAB, HBV PCR, HCV RX PCR, HAAB, L-K MICRO, HEMOCHROM, HCBIGM, IGG, SIGIFREDO, HBSAB, HBS AB QUANT, CERULOP, MITOM2, HBSAG, HBCAB, ALPHA PHEN #### [facility] , #### [place], HEPATIC #### [facility] [address] MCH [Entitic mass] by Automa paul countOrdered By: Mckenzie Dilip on 02-16-2023 MCH (RBC) [Entitic mass] 27.2 pg Low 27.5-35.2 [facility] Comment on above: Order Comment: Reaso n for Exam Elevated liver enzymes Performed By: #### H AABT, SMAB, HBV PCR, HCV RX PCR, HAAB, L-K MICRO, HEMOCHROM, HCBIGM, IGG, SIGIFREDO, HBSAB, HBS AB QUANT, CERULOP, MITOM2, HBSAG, HBCAB, ALPHA PHEN #### [facility] , #### [place], HEPATIC #### [facility] [address] [place] [address] MCHC Auto (RBC) [Mass/Vol]Or dered By: Mckenzie Cherry on 02-16-2023 MCHC (RBC) [Mass/Vol] 32.8 g/dL 32.5-35.6 [facility] MCV [Entitic volume] by Auto mated countOrdered By: Mckenziesesar Cherry on 02-16-2023 MCV (RBC) [Entitic vol] 82.9 fL Low 83.5-101 [facility] Comment on above: Order Comment: Reaso n for Exam Elevated liver enzymes Performed By: #### H AABT, SMAB, HBV PCR, HCV RX PCR, HAAB, L-K MICRO, HEMOCHROM, HCBIGM, IGG, SIGIFREDO, HBSAB, HBS AB QUANT, CERULOP, MITOM2, HBSAG, HBCAB, ALPHA PHEN #### [facility] , #### [place], [place]IC #### [facility] [address] Monocyte distribution width [Entitic volume] in Blood by AutomatedOrdered By: Mckenzie Cherry on 02-16-2023 Monocyte distribution width Auto (Bld) [Entitic vol] 19.77 % 0.00-20.00 [facility] Comment on above: For adults in ED, MD W > 20.0 may be associated with a higher risk of sepsis during the first 12 hrs of hospital admission Neutrophils [#/volume] in Bl ood by Automated countOrdered By: Mckenzie Cherry on 02-16-2023 Neutrophils (Bld) [#/Vol] 4.6 10*3/uL Normal 1.8-7.7 [facility] Comment on above: Order Comment: Reaso n for Exam Elevated liver enzymes Performed By: #### H AABT, SMAB, HBV PCR, HCV RX PCR, HAAB, L-K MICRO, HEMOCHROM, HCBIGM, IGG, SIGIFREDO, HBSAB, HBS AB QUANT, CERULOP, MITOM2, HBSAG, HBCAB, ALPHA PHEN #### [facility] , #### [place], [place]PATIC #### [facility] [address] Nitrite Test strip Ql (U)Ord ered By: Mckenzie Cherry on 02-16-2023 Nitrite Ql (U) Negative Negative [facility] No Panel InformationOrdered By: Mckenzie Cherry on 02-16-2023 Estimated GFR (CKD-EPI) > 60.0 mL/Min [facility] Creatinine Clearance (Chem 125.02 [facility] Nucleated erythrocytes [Pres ence] in Blood by Automated countOrdered By: Mckenzie Cherry on 02-16-2023 Nucleated RBC Auto Ql (Bld) 0.5 /100{WBC} 0-0.5 [facility] Platelet adequacy [Presence] in Blood by Light microscopyOrdered By: Mckenzie Cherry on 02-16-2023 Platelets LM Ql (Bld) Normal Normal Fir [facility] Platelet mean volume [Entiti c volume] in Blood by Automated countOrdered By: Mckenzie Cherry on 02-16-2023 Platelet mean volume (Bld) [Entitic vol] 9.3 fL Normal 6.6-10.1 [facility] Comment on above: Order Comment: Reaso n for Exam Elevated liver enzymes Performed By: #### H AABT, SMAB, HBV PCR, HCV RX PCR, HAAB, L-K MICRO, HEMOCHROM, HCBIGM, IGG, SIGIFREDO, HBSAB, HBS AB QUANT, CERULOP, MITOM2, HBSAG, HBCAB, ALPHA PHEN #### [facility] , #### [place], [place]IC #### [facility] [address] Platelet morphology finding [Identifier] in BloodOrdered By: Mckenzie Cherry on 02-16-2023 Platelet morphology finding Nom (Bld) Normal Normal [facility] Platelets [#/volume] in Bloo d by Automated countOrdered By: Mckenzie Cherry on 02-16-2023 Platelets (Bld) [#/Vol] 310 10*3/uL Normal 150-450 [facility] Comment on above: Order Comment: Reaso n for Exam Elevated liver enzymes Performed By: #### H AABT, SMAB, HBV PCR, HCV RX PCR, HAAB, L-K MICRO, HEMOCHROM, HCBIGM, IGG, SIGIFREDO, HBSAB, HBS AB QUANT, CERULOP, MITOM2, HBSAG, HBCAB, ALPHA PHEN #### [facility] , #### [place], [place]IC #### [facility] [address] Potassium [Moles/volume] in Serum or PlasmaOrdered By: Mckenzie Cherry on 02-16-2023 Potassium [Moles/Vol] 4.7 mmol/L Normal 3.5-5.1 [facility] Comment on above: Performed By: #### H AABT, SMAB, HBV PCR, HCV RX PCR, HAAB, L-K MICRO, HEMOCHROM, HCBIGM, IGG, SIGIFREDO, HBSAB, HBS AB QUANT, CERULOP, MITOM2, HBSAG, HBCAB, ALPHA PHEN #### [facility] , #### [place], [place]IC #### [facility] [address] Protein Auto test strip (U) [Mass/Vol]Ordered By: Mckenzie Cherry on 02-16-2023 Protein (U) [Mass/Vol] Negative Negative [facility] Protein [Mass/volume] in Ser um or PlasmaOrdered By: Mckenzie Cherry on 02-16-2023 Protein [Mass/Vol] 8.6 g/dL Normal 6.4-8.9 [facility] Comment on above: Performed By: #### H AABT, SMAB, HBV PCR, HCV RX PCR, HAAB, L-K MICRO, HEMOCHROM, HCBIGM, IGG, SIGIFREDO, HBSAB, HBS AB QUANT, CERULOP, MITOM2, HBSAG, HBCAB, ALPHA PHEN #### [facility] , #### [place], [place] #### [facility] [address] RBC morphologyOrdered By: Alisa Cherry on 02-16-2023 RBC morphology finding Nom (Bld) N/A [facility] Red blood cell stomatocyte d etectionOrdered By: Mckenzie Cherry on 02-16-2023 Stomatocytes LM Ql (Bld) Slight [facility] Scan and CBCon 02-16-2023 Mean Corpuscular HGB Conc 32.8 g/dL Normal 32.5-35.6 [facility] Comment on above: Order Comment: Reaso n for Exam Elevated liver enzymes Performed By: #### H AABT, SMAB, HBV PCR, HCV RX PCR, HAAB, L-K MICRO, HEMOCHROM, HCBIGM, IGG, SIGIFREDO, HBSAB, HBS AB QUANT, CERULOP, MITOM2, HBSAG, HBCAB, ALPHA PHEN #### [facility] , #### [place], [place]IC #### [facility] [address] Monocytes/100 WBC (Bld) 19.77 % Normal 0.00-20.00 T he [facility] Comment on above: Order Comment: Reaso n for Exam Elevated liver enzymes Result Comment: For adults in ED, MDW > 20.0 may be associated with a higher risk of sepsis during the first 12 hrs of hospital admission Performed By: #### H AABT, SMAB, HBV PCR, HCV RX PCR, HAAB, L-K MICRO, HEMOCHROM, HCBIGM, IGG, SIGIFREDO, HBSAB, HBS AB QUANT, CERULOP, MITOM2, HBSAG, HBCAB, ALPHA PHEN #### [facility] , #### [place], [place]IC #### [facility] [address] NRBC% 0.5 /100{WBC} Normal 0-0.5 [facility] Comment on above: Order Comment: Reaso n for Exam Elevated liver enzymes Performed By: #### H AABT, SMAB, HBV PCR, HCV RX PCR, HAAB, L-K MICRO, HEMOCHROM, HCBIGM, IGG, SIGIFREDO, HBSAB, HBS AB QUANT, CERULOP, MITOM2, HBSAG, HBCAB, ALPHA PHEN #### [facility] , #### [place], [place] #### [address] Platelet Estimate Normal Normal Normal [facility] Comment on above: Order Comment: Reaso n for Exam Elevated liver enzymes Performed By: #### H AABT, SMAB, HBV PCR, HCV RX PCR, HAAB, L-K MICRO, HEMOCHROM, HCBIGM, IGG, SIGIFREDO, HBSAB, HBS AB QUANT, CERULOP, MITOM2, HBSAG, HBCAB, ALPHA PHEN #### [facility] , #### [place], [place]PATIC #### [facility] [address] [place] [address] Platelet Morphology Normal Normal Normal [facility] Comment on above: Order Comment: Reaso n for Exam Elevated liver enzymes Result Comment: PERF ORMED BY: [place] [address] PATHOLOGIST MANAGER INCOME TAX CHRISTOPHER CARTER M.D. Performed By: #### H AABT, SMAB, HBV PCR, HCV RX PCR, HAAB, L-K MICRO, HEMOCHROM, HCBIGM, IGG, SIGIFREDO, HBSAB, HBS AB QUANT, CERULOP, MITOM2, HBSAG, HBCAB, ALPHA PHEN #### [facility] , #### [place], [place] #### [address] Stomatocytes Slight Normal [facility] Comment on above: Order Comment: Reaso n for Exam Elevated liver enzymes Performed By: #### H AABT, SMAB, HBV PCR, HCV RX PCR, HAAB, L-K MICRO, HEMOCHROM, HCBIGM, IGG, SIGIFREDO, HBSAB, HBS AB QUANT, CERULOP, MITOM2, HBSAG, HBCAB, ALPHA PHEN #### [facility] , #### [place], [place] #### [address] Serum globulin measurement b y calculation (mass/volume)Ordered By: Mckenzie Cherry on 02-16-2023 Globulin (S) [Mass/Vol] 3.9 g/dL Normal [facility] Comment on above: Performed By: #### H AABT, SMAB, HBV PCR, HCV RX PCR, HAAB, L-K MICRO, HEMOCHROM, HCBIGM, IGG, SIGIFREDO, HBSAB, HBS AB QUANT, CERULOP, MITOM2, HBSAG, HBCAB, ALPHA PHEN #### [facility] , #### [place], [place] #### [address] Serum or plasma albumin/glob ulin mass ratioOrdered By: Mckenzie Cherry on 02-16-2023 Albumin/Globulin [Mass ratio] 1.2 {ratio} Normal [facility] Comment on above: Performed By: #### H AABT, SMAB, HBV PCR, HCV RX PCR, HAAB, L-K MICRO, HEMOCHROM, HCBIGM, IGG, SIGIFREDO, HBSAB, HBS AB QUANT, CERULOP, MITOM2, HBSAG, HBCAB, ALPHA PHEN #### [facility] , #### [place], [place]PATIC #### [facility] [address] Serum or plasma anion gap de terminationOrdered By: Mckenzie Cherry on 02-16-2023 Anion gap [Moles/Vol] 12.4 mmol/L Normal 6.0-15.0 [facility] Comment on above: Performed By: #### H AABT, SMAB, HBV PCR, HCV RX PCR, HAAB, L-K MICRO, HEMOCHROM, HCBIGM, IGG, SIGIFREDO, HBSAB, HBS AB QUANT, CERULOP, MITOM2, HBSAG, HBCAB, ALPHA PHEN #### [facility] , #### [place], [place] #### [address] Sodium [Moles/volume] in Ser um or PlasmaOrdered By: Mckenzie Cherry on 02-16-2023 Sodium [Moles/Vol] 136 mmol/L Normal 136-145 [facility] Comment on above: Performed By: #### H AABT, SMAB, HBV PCR, HCV RX PCR, HAAB, L-K MICRO, HEMOCHROM, HCBIGM, IGG, SIGIFREDO, HBSAB, HBS AB QUANT, CERULOP, MITOM2, HBSAG, HBCAB, ALPHA PHEN #### [facility] , #### [place], [place] #### [address] Specific gravity Auto test s trip (U) [Rel density]Ordered By: Mckenzie Cherry on 02-16-2023 Specific gravity (U) [Rel density] 1.017 1.001-1.030 [facility] Squamous epithelial cells de tection in urine sediment by light microscopyOrdered By: Mckenzie Cherry on 02-16-2023 Epithelial cells.squamous LM Ql (Urine sed) 0-1 [HPF] 0-2 [facility] Urea nitrogen [Mass/volume] in Serum or PlasmaOrdered By: Mckenzie Cherry on 02-16-2023 Urea nitrogen [Mass/Vol] 16 mg/dL Normal 7-25 [facility] Comment on above: Performed By: #### H AABT, SMAB, HBV PCR, HCV RX PCR, HAAB, L-K MICRO, HEMOCHROM, HCBIGM, IGG, SIGIFREDO, HBSAB, HBS AB QUANT, CERULOP, MITOM2, HBSAG, HBCAB, ALPHA PHEN #### [facility] , #### [place], [place] #### [facility] [address] Urine bacteria detection by automated methodOrdered By: Mckenzie Cherry on 02-16-2023 Bacteria Auto Ql (U) None seen None Seen [facility] Urine clarity by refractomet ry automatedOrdered By: Mckenzie Cherry on 02-16-2023 Clarity Refractometry automated (U) Clear Clear [facility] Urine glucose measurement by automated test strip (mass/volume)Ordered By: Mckenzie Cherry on 02-16-2023 Glucose Auto test strip (U) [Mass/Vol] Normal mg/dL Normal [facility] Urine hemoglobin detection b y automated test stripOrdered By: Mckenzie Cherry on 02-16-2023 Hemoglobin Auto test strip Ql (U) Negative Negative [facility] Urine leukocyte esterase det ection by automated test stripOrdered By: Mckenzie Cherry on 02-16-2023 Leukocyte esterase Auto test strip Ql (U) 1+ Negative [facility] Urine pH measurement by auto mated test stripOrdered By: Mckenzie Cherry on 02-16-2023 pH (U) 7.5 [pH] Normal 5.0-9.0 [facility] Comment on above: Order Comment: Reaso n for Exam Elevated liver enzymes Performed By: #### H AABT, SMAB, HBV PCR, HCV RX PCR, HAAB, L-K MICRO, HEMOCHROM, HCBIGM, IGG, SIGIFREDO, HBSAB, HBS AB QUANT, CERULOP, MITOM2, HBSAG, HBCAB, ALPHA PHEN #### [facility] , #### [place], [place]IC #### [facility] [address] Urobilinogen Auto test strip (U) [Mass/Vol]Ordered By: Mckenzie Cherry on 02-16-2023 Urobilinogen (U) [Mass/Vol] Normal mg/dL Normal [facility] CBC W/DIFFon 10-24-2020 ABS IMM GRANS 0.0 10*3/uL Normal 0.0-0.2 [facility] Comment on above: Performed By: #### 5 0103 #### [facility] [address] [facility] [place] [address], [facility] ABS NEUTROPHILS 2.7 10*3/uL Normal 1.6-7.6 [facility] Comment on above: Performed By: #### 5 0103 #### [facility] [address] [place] [address], [facility] Basophils (Bld) [#/Vol] 0.1 10*3/uL Normal 0.0-0.2 [facility] Comment on above: Performed By: #### 5 0103 #### [facility] [address] [facility] [place] [address], [facility] Basophils/100 WBC (Bld) 1.0 % Normal 0.0-1.0 [facility] Comment on above: Performed By: #### 5 0103 #### [facility] [address] [place] [address], [facility] Eosinophils (Bld) [#/Vol] 0.2 10*3/uL Normal 0.0-0.5 [facility] Comment on above: Performed By: #### 5 0103 #### [facility] [address] [facility] [place] [address], [facility] Eosinophils/100 WBC (Bld) 3.1 % Normal 0.0-6.0 [facility] Comment on above: Performed By: #### 5 3 #### [facility] [address] [place] [address], [facility] Erythrocyte distribution width (RBC) [Ratio] 12.7 % Normal 11.5-15.0 [facility] Comment on above: Performed By: #### 5 3 #### [facility] [address] [facility]. [address] Hematocrit (Bld) [Volume fraction] 42.9 % Normal 39.0-50.0 [facility] Comment on above: Performed By: #### 102 #### [facility] 3000 [facility]. [address] Hemoglobin (Bld) [Mass/Vol] 14.0 g/dL Normal 13.0-17.0 [facility] Comment on above: Performed By: #### 102 #### [facility] [address] IMMATURE GRANS 0.2 % Normal 0.0-1.0 [facility] Comment on above: Performed By: #### 102 #### [facility] [address] Lymphocytes (Bld) [#/Vol] 2.3 10*3/uL Normal 1.2-4.0 [facility] Comment on above: Performed By: #### 102 #### [facility] [address] Lymphocytes/100 WBC (Bld) 40.2 % Normal 20.0-45.0 [facility] Comment on above: Performed By: #### 102 #### [facility] 3000 [facility]. [address] MCH (RBC) [Entitic mass] 28.1 pg Normal 27.0-33.0 [facility] Comment on above: Performed By: #### 102 #### [facility] [address] MCHC (RBC) [Mass/Vol] 32.6 g/dL Normal 32.0-35.0 [facility] Comment on above: Performed By: #### 5 0103 #### [facility] [address] [place] [address], [facility] MCV (RBC) [Entitic vol] 86.0 fL Normal 82.0-98.0 T [facility] Comment on above: Performed By: #### 5 0103 #### [facility] [address] [place] [address], [facility] Monocytes (Bld) [#/Vol] 0.5 10*3/uL Normal 0.1-1.0 [facility] Comment on above: Performed By: #### 102 #### [facility] 3000 [place] [address], [facility] MONOS 7.9 % Normal 5.0-12.0 [facility] Comment on above: Performed By: #### 102 #### [facility] 3000 [facility] [place] [address], [facility] Neutrophils/100 WBC (Bld) 47.6 % Normal 40.0-72.0 [facility] Comment on above: Performed By: #### 102 #### [facility] 3000 [facility] [place] [address], [facility] Nucleated RBC/100 WBC (Bld) [Ratio] 0 % Normal 0-0 [facility] Comment on above: Performed By: #### 5 3 #### [facility] [address] [facility] [place] [address], [facility] PLAT CNT 283 10*3/uL Normal 150-400 [facility] Comment on above: Performed By: #### 5 0103 #### [facility] [address] [facility] [place] [id number], [facility] RBC (Bld) [#/Vol] 4.99 10*6/uL Normal 4.20-5.70 [facility] Comment on above: Performed By: #### 102 #### [facility] [address] [place] [address], [facility] WBC (Bld) [#/Vol] 5.72 10*3/uL Normal 4.00-10.60 [facility] Comment on above: Performed By: #### 5 0103 #### [facility] [address] [place] [address], [facility] COMP METABOLIC PANELon 10-24 Albumin [Mass/Vol] 4.7 g/dL Normal 3.5-5.7 [facility] Comment on above: Performed By: #### 0 0121 ####[facility] [place] [address], [facility] ALKALINE PHOSPH 68 IU/L Normal 34-104 [facility] Comment on above: Performed By: #### 0 0121 ####[facility] [place] [address], [facility] ALT [Catalytic activity/Vol] 27 U/L Normal 7-52 [facility] Comment on above: Performed By: #### 0 0121 ####[facility] [place] [address], [facility] AST [Catalytic activity/Vol] 35 U/L Normal 13-39 [facility] Comment on above: Performed By: #### 0 0121 ####[facility] [place] [address], [facility] Bilirubin [Mass/Vol] 0.3 mg/dL Normal 0.3-1.0 [facility] Comment on above: Performed By: #### 0 0121 ####[facility] [place] [address], [facility] Calcium [Mass/Vol] 9.9 mg/dL Normal 8.6-10.3 [facility] Comment on above: Performed By: #### 0 0121 ####[facility] [id number], [facility] Chloride [Moles/Vol] 101 mmol/L Normal 98-107 [facility] Comment on above: Performed By: #### 0 0121 ####[facility]3000 [facility] [place] [address], [facility] CO2 [Moles/Vol] 33 mmol/L High 21-31 [facility] Comment on above: Performed By: #### 0 0121 ####[facility]3000 [facility] [place] [address], [facility] Creatinine [Mass/Vol] 0.94 mg/dL Normal 0.70-1.30 [facility] Comment on above: Performed By: #### 0 0121 ####[place] [id number] [place] [address], [facility] GFR/1.73 sq M.predicted among blacks MDRD (S/P/Bld) [Vol rate/Area] mL/min/{1.73_m2} Normal >60 [facility] Comment on above: Performed By: #### 0 0121 ####[facility]3000 [place] [address], [facility] GFR/1.73 sq M.predicted among non-blacks MDRD (S/P/Bld) [Vol rate/Area] mL/min/{1.73_m2} Normal >60 [facility] Comment on above: Performed By: #### 0 0121 ####[facility]3000 [facility] [place] [address], [facility] Glucose [Mass/Vol] 91 mg/dL Normal 70-100 [facility] Comment on above: Performed By: #### 0 0121 ####[facility]3000 [place] [address], [facility] Potassium [Moles/Vol] 4.5 mmol/L Normal 3.5-5.1 [facility] Comment on above: Performed By: #### 0 0121 ####[facility]3000 [facility] [place] [address], [facility] Protein [Mass/Vol] 7.6 g/dL Normal 6.0-8.3 [facility] Comment on above: Performed By: #### 0 0121 ####[facility] [place] [address], [facility] Sodium [Moles/Vol] 138 mmol/L Normal 136-145 [facility] Comment on above: Performed By: #### 0 0121 ####[facility] [place] [address], [facility] Urea nitrogen [Mass/Vol] 18 mg/dL Normal 7-20 [facility] Comment on above: Performed By: #### 0 0121 ####[facility] HEP B CORE AB IGM HEP B CORE IGM Negative Normal Negative [facility] Comment on above: Result Comment: INTE RPRETIVE INFORMATION: Hepatitis B Core Ab, IgM This assay should not be used for blood donor screening, associated re-entry protocols, or for screening Human Cells, Tissues and Cellular and Tissue-Based Products (HCT/P). Performed By: [facility] [address] [place] [id number] Accounts Receivable Assistant: Loraine Burger MD HEP B E AB 1 HEP B E AB Positive Abnormal Negative [facility] Comment on above: Result Comment: The [...] one month may be useful. Performed By: [facility] [address] [place] [address] [id number] Accounts Rece[employer] Assistant: Loraine Burger MD HEP B E AG 1 HEP B E AG Negative Normal Negative [facility] Comment on above: Result Comment: Perf ormed By: [facility] [address] [place] [address] Accounts Rece[employer] Assistant: Loraine Burger MD HEP B VIRUS, QUANT by NAAT 3 [id number] 10-24-2020 HBV QNT BY NAAT 436 IU/mL Normal [facility] HBV QNT NAAT, INTERP Detected Abnormal Not Detected Th e [facility] Comment on above: Result Comment: INTE [...] NAAT, LOG 3 log IU/mL Normal [facility] Comment on above: Result Comment: Perf ormed By: [facility] [address] [place] [id number] [employer] Assistant: Loraine Burger MD HEP C GENOTYPE w/RFLX NS5A D RUG RESIS [id number] 10-24-2020 HEP C GENOTYPING Indeterminate Normal [facility] Comment on above: Result Comment: Hepa titis [...] C Viral RNA is tested using reverse broadcast meteorologist polymerase chain reaction (RT-PCR) to amplify a specific portion of the 5' untranslated region (5' UTR) of the viral genome. The amplified nucleic acid is sequenced bi-directionally using dye-terminator chemistry (Group 47). Sequencing data is compared to a database [...] developed and its performance characteristics determined by [employer]. It has not been cleared or approved by the [place] Food and Drug Administration. This test was performed in a CLIA certified laboratory and is intended for clinical purposes. Performed By: [facility] [address] [place] [address] [id number] [employer]s [employer] Assistant: Loraine Burger MD HEPATITIS A ABS TOTAL [id number] 10-24-2020 HEP A ABS(TOTAL) Negative Normal Negative [facility] Comment on above: Result Comment: Perf ormed By: [facility] [address] [place] [id number] Accounts [employer] Assistant: Loraine Burger MD HEPATITIS B CORE ANTIBODYon 10-24-2020 HEP B CORE AB Reactive Abnormal NONREACTIVE [facility] Comment on above: Performed By: #### 3 1423, 69899, 03437, 74440 ####[facility] HEPATITIS B SURFACE ANTIBODY QUANTon 10-24-2020 HEP B SURF AB 0.00 mIU/ml Normal [facility] Comment on above: Result Comment: INTE RPRETATION: NONREACTIVE<8.00 mIU/mL INDETERMINATE8.00 - 12.00 mIU/mL REACTIVE>12 mIU/mL Performed By: #### 3 1423, 24918, 31015, 15345 #### [facility] [address] [place] [address], [facility] HEPATITIS B SURFACE ANTIGEN QUALon 10-24-2020 HEP B SURF AG QUAL Reactive Abnormal NONREACTIVE [facility] Comment on above: Result Comment: HEPA TITIS B SURFACE ANTIGEN TO BE CONFIRMED Performed By: #### 3 1423, 19094, 08881, 83760 #### [facility] 3000 [facility]. [address] HEPATITIS C BY TMAon 021 HCV Not detected Normal [facility] Comment on above: Order Comment: The A ptima HCV Quant Dx assay is a real-time broadcast meteorologist-mediated amplification (TMA) test which has a dynamic [...] products. Performed By: #### 3 1750 #### [facility] [address] HCV TMA INTERPRETATION Not detected Normal [facility] Comment on above: Order Comment: The A ptima HCV Quant Dx assay is a real-time broadcast meteorologist-mediated amplification (TMA) test which has a dynamic [...] or blood products. Performed By: #### 3 5620 #### [facility] [address] HIV1 AND 2 COMBO 4Gon 2020 HIV COMBO Negative Normal NEGATIVE [facility] Comment on above: Performed By: #### 3 0625 #### [facility] [address] LIVER FIBROSIS CHRONIC VIRAL [id number] 10-24-2020 SHEOT-7-[id number],F IBROMETER 176 mg/dL Normal 131-293 [facility] ALT [Catalytic activity/Vol] 31 U/L Normal 5-50 [facility] Amylase [Catalytic activity/Vol] 12 U/L Normal 7-51 [facility] AST [Catalytic activity/Vol] 42 U/L Normal 9-50 [facility] CIRRHOMETER PATIENT SCORE 0.01 Normal [facility] EER FIBROMETER REPORT See Note Normal [facility] Comment on above: Result Comment: Manda coronel [facility] Enhanced Report using the link below: -Direct access: [email or web address] FIBROMETER INTERPRETATION See Report Normal [facility] Comment on above: Result Comment: [16] [17] INTERPRETIVE INFORMATION: Fibrometer Interpretation Calculations for the final report are based on accurate data for age, gender, and platelet count. If any of this information needs to be corrected, please contact [facility] Client Services to request a recalculation. Client Services may be contacted at . The [employer] FibroMeter profile serves as a surrogate marker [...] developed and its performance characteristics determined by [employer]. It has not been cleared or approved by the US Food and Drug Administration. This test was performed in a CLIA certified laboratory and is intended for clinical purposes. Performed By: [facility] [address] [place] [id number] Accounts Receivable Assistant: Loraine Burger MD FIBROMETER PLATELET CT 283 k/uL Normal Th e [facility] FIBROMETER PLATELET IND 87 % Low 90-120 T he [facility] FIBROMETER PLATELET SCORE 0.26 Normal [facility] FIBROSIS METAVIR CLASSIFICATION F1[F1-F2] Normal [facility] Comment on above: Result Comment: INTE RPRETIVE [...] possible INFLAMETER METAVIR CLASSIFICATION A0/A1 Normal [facility] Comment on above: Result Comment: INTE RPRETIVE INFORMATION: InflaMeter Metavir Classification [employer]eter (activity score) comments A0/A1 Equal probability between A0 and A1 A1/A2 Equal probability between A1 and A2 A2/A3 Equal probability between A2 and A3 INFLAMETER PATIENT SCORE 0.25 Normal [facility] PROTHROMBIN TIMEon 1 INR Coag (PPP) [Relative time] 1.02 {INR} Normal 0.91-1.16 [facility] Comment on above: Order Comment: Jessica julio [...] CHEST 1995;108:231S-246S. Performed By: #### 5 6101 ####[facility] PT Coag (PPP) [Time] 13.4 s Normal 12.3-14.8 [facility] Comment on above: Order Comment: Jessica julio drawn PT/INR Result Comment: ALL RESULTS MUST BE INTERPRETED WITH RESPECT TO BLOOD DRAWING ARTIFACT OR DILUTION ERROR OF ANTICOAGULANT AT THE TIME OF SAMPLING. Performed By: #### 5 6101 ####[facility] hep b surf ag confirmon 08- HEP B SURF AG QUAL INTERP CONFIRMED Normal [facility] Comment on above: Performed By: #### 3 1423, 70424, 06122, 35869 ####[facility]3000 [facility] Vital Signs Date Time Vital Sign Value Performing Clinician Facility 12-08-2023 09:51-0400 Diastolic blood pressure 70 mm[Hg] PHYSICIAN NO [facility] 12-08-2023 09:51-0400 Heart rate 76 /min PHYSICIAN NO [facility] 12-08-2023 09:51-0400 Respiratory rate 16 /min PHYSICIAN NO [facility] 12-08-2023 09:51-0400 SaO2% (BldA) [Mass fraction] 99 % PHYSICIAN NO [facility] 12-08-2023 09:51-0400 Systolic blood pressure 112 mm[Hg] PHYSICIAN NO [facility] 12-08-2023 07:50-0400 Body height 172.72 cm PHYSICIAN NO [facility] 12-08-2023 07:50-0400 Body weight 73.48 kg PHYSICIAN NO [facility] 11-29-2023 08:54-0400 Body height 172.72 cm [facility] 11-29-2023 08:54-0400 Body temperature 98.3 [degF] [facility] 11-29-2023 08:54-0400 Diastolic blood pressure 82 mm[Hg] [facility] 11-29-2023 08:54-0400 Heart rate 74 /min [facility] 11-29-2023 08:54-0400 Systolic blood pressure 130 mm[Hg] [facility] 11-22-2023 14:16-0400 Body mass index (BMI) [Ratio] 24.8 kg/m2 [facility] 11-22-2023 14:16-0400 SaO2% (BldA) [Mass fraction] 95 % [facility] 11-22-2023 13:54-0400 Body height 172.72 cm [facility] 11-22-2023 13:54-0400 Body temperature 97.7 [degF] [facility] 11-22-2023 13:54-0400 Body weight 74.16 kg [facility] 11-22-2023 13:54-0400 Diastolic blood pressure 66 mm[Hg] [facility] 11-22-2023 13:54-0400 Heart rate 60 /min [facility] 11-22-2023 13:54-0400 Systolic blood pressure 104 mm[Hg] [facility] 10-19-2023 09:01-0400 Body height 172.72 cm [facility] 10-19-2023 09:01-0400 Body mass index (BMI) [Ratio] 24.5 kg/m2 [facility] 10-19-2023 09:01-0400 Body weight 73.02 kg [facility] 10-19-2023 09:01-0400 Diastolic blood pressure 66 mm[Hg] [facility] 10-19-2023 09:01-0400 Heart rate 72 /min [facility] 10-19-2023 09:01-0400 SaO2% (BldA) [Mass fraction] 97 % [facility] 10-19-2023 09:01-0400 Systolic blood pressure 108 mm[Hg] [facility] 07-28-2023 07:01-0400 Body temperature 97.9 [degF] Hany Fuentes MD Work Phone: [facility] [employer] 07-28-2023 07:01-0400 Diastolic blood pressure 79 mm[Hg] Hany Fuentes MD Work Phone: [facility] [employer] 07-28-2023 07:01-0400 Heart rate 75 /min Hany Fuentes MD Work Phone: [employer] 07-28-2023 07:01-0400 Respiratory rate 18 /min Hany Fuentes MD Work Phone: [employer] 07-28-2023 07:01-0400 SaO2% (BldA) [Mass fraction] 96 % Hany Fuentes MD Work Phone: [employer] 07-28-2023 07:01-0400 Systolic blood pressure 130 mm[Hg] Hany Fuentes MD Work Phone: [employer] 04-02-2023 11:34-0500 Diastolic blood pressure 67 mm[Hg] [facility] 04-02-2023 11:34-0500 Heart rate 68 /min [facility] 04-02-2023 11:34-0500 Respiratory rate 16 /min [facility] 04-02-2023 11:34-0500 SaO2% (BldA) [Mass fraction] 100 % [facility] 04-02-2023 11:34-0500 Systolic blood pressure 121 mm[Hg] [facility] 04-02-2023 09:16-0500 Body temperature 97.11 [degF] [facility] 04-02-2023 09:16-0500 Body height 172.7 cm [facility] [employer] 04-02-2023 09:16-0500 Body mass index (BMI) [Ratio] 24.33 kg/m2 [facility] [employer] 04-02-2023 09:16-0500 Body weight 72.58 kg [facility] [employer] 03-06-2023 19:17-0500 Body height 172.7 cm [facility] [employer] 03-06-2023 19:17-0500 Body mass index (BMI) [Ratio] 24.33 kg/m2 [facility] [employer] 03-06-2023 19:17-0500 Body temperature 97.81 [degF] [facility] [employer] 03-06-2023 19:17-0500 Body weight 72.58 kg [facility] [employer] 03-06-2023 19:17-0500 Heart rate 78 /min [facility] [employer] 03-06-2023 19:17-0500 Respiratory rate 18 /min [facility] [employer] 03-06-2023 19:17-0500 SaO2% (BldA) [Mass fraction] 98 % [facility] [employer] 03-06-2023 14:50-0500 Diastolic blood pressure 81 mm[Hg] Katie Denia DO Work Phone: [facility] [employer] 03-06-2023 14:50-0500 Heart rate 64 /min Katie Denia DO Work Phone: [facility] [employer] 03-06-2023 14:50-0500 Respiratory rate 16 /min Katie Denia DO Work Phone: [facility] [employer] 03-06-2023 14:50-0500 SaO2% (BldA) [Mass fraction] 97 % Katie Denia DO Work Phone: [facility] [employer] 03-06-2023 14:50-0500 Systolic blood pressure 120 mm[Hg] Katie Denia DO Work Phone: [facility] [employer] 03-06-2023 07:27-0500 Body temperature 97.81 [degF] Katie Denia DO Work Phone: [facility] [employer] 03-02-2023 13:00-0500 Body height 172.72 cm Imad Asaad Other [employer] Other 03-02-2023 13:00-0500 Body mass index (BMI) [Ratio] 23.26 kg/m2 Imad Asaad Other [employer] Other 03-02-2023 13:00-0500 Body weight 69.4 kg Imad Asaad Other [employer] Other 03-02-2023 13:00-0500 Diastolic blood pressure 66 mm[Hg] Imad Asaad Other [employer] Other 03-02-2023 13:00-0500 Systolic blood pressure 110 mm[Hg] Imad Asaad Other [employer] Other 02-16-2023 20:05-0500 Body temperature 98.8 [degF] PHYSICIAN NO [facility] 02-16-2023 20:05-0500 Diastolic blood pressure 95 mm[Hg] PHYSICIAN NO [facility] 02-16-2023 20:05-0500 Heart rate 94 /min PHYSICIAN NO [facility] 02-16-2023 20:05-0500 Respiratory rate 20 /min PHYSICIAN NO [facility] 02-16-2023 20:05-0500 SaO2% (BldA) [Mass fraction] 96 % PHYSICIAN NO [facility] 02-16-2023 20:05-0500 Systolic blood pressure 156 mm[Hg] PHYSICIAN NO [facility] 02-16-2023 14:24-0500 Body height 172.72 cm PHYSICIAN NO [facility] 02-16-2023 14:24-0500 Body weight 67.05 kg PHYSICIAN NO [facility] Encounters Encounter Date Encounter Type Care Provider Facility Start: 12-22-2023 End: 12-22-2023 Patient encounter procedure PHYSICIAN NO [facility] Work Phone: Start: 12-22-2023 End: 12-22-2023 ambulatory PHYSICIAN NO [facility] Work Phone: Start: 12-08-2023 Non-patient / Non-visit PHYSICIAN NO [facility] Gastroenterology Work Phone: Start: 12-08-2023 End: 12-08-2023 Admission to same day surgery center PHYSICIAN NO [facility] Work Phone: Start: 12-08-2023 End: 12-08-2023 ambulatory PHYSICIAN NO [facility] Work Phone: Start: 11-29-2023 End: 11-29-2023 Departed Referred [employer]ENTER FE[employer]ER Asiya Boyd Work Phone: [facility] [place] Work Phone: Start: 11-29-2023 End: 11-29-2023 ambulatory Asiya Boyd [facility] Work Phone: Start: 11-29-2023 End: 11-29-2023 Patient encounter procedure [facility] Work Phone: Start: 11-23-2023 Non-patient / Non-visit [facility] Work Phone: Start: 11-22-2023 End: 11-22-2023 ambulatory [facility] Work Phone: Start: 11-22-2023 End: 11-22-2023 Patient encounter procedure [facility] Work Phone: Start: 10-19-2023 End: 10-19-2023 ambulatory [facility] Work Phone: Start: 10-19-2023 End: 10-19-2023 Patient encounter procedure [facility] Work Phone: Start: 10-08-2023 Non-patient / Non-visit [facility] Work Phone: Start: 07-28-2023 End: 07-28-2023 Emergency department patient visit [facility] Start: 07-28-2023 End: 07-28-2023 Emergency department patient visit Hany Fuentes MD Work Phone: [facility] EMERGENCY [facility]PT Comment on above: Lumbar strain, initi al encounter (Primary Dx) Start: 04-02-2023 End: 04-02-2023 Emergency department patient visit [facility] Start: 04-02-2023 End: 04-02-2023 Emergency department patient visit [facility] EMERGENCY DEPT Comment on above: RSV (respiratory syn cytial virus infection) (Primary Dx) Start: 03-06-2023 End: 03-06-2023 Emergency department patient visit [facility] Start: 03-06-2023 End: 03-06-2023 Emergency department patient visit [facility] EMERGENCY DEPT Comment on above: Encounter for monito ring Suboxone maintenance therapy (Primary Dx) Start: 03-06-2023 End: 03-06-2023 Emergency department patient visit KATIE LOZA [facility] Start: 03-06-2023 End: 03-06-2023 Emergency department patient visit Katie Loza DO Work Phone: [facility] ED Comment on above: History of hepatitis (Primary Dx); Transaminitis; History of opioid abuse (CMS/HCC) (HCC) Start: 03-02-2023 [facility] visit new patient Chay Weber [facility] Gastroenter[facility] Start: 03-02-2023 End: 03-02-2023 ambulatory Imad Asagalindo [facility] [employer] Other Start: 02-16-2023 End: 02-16-2023 Emergency department patient visit PHYSICIAN ULYSSES GRANGER [facility] Work Phone: Start: 05-11-2022 End: 05-11-2022 ambulatory PHYSICIAN NO [facility] [facility] Work Phone: Start: 05-11-2022 End: 05-11-2022 Patient encounter procedure PHYSICIAN NO [facility] Work Phone: Start: 02-15-2022 End: 02-15-[address] CHINEDU CESAR Facility: Start: 09-15-2021 End: 09-23-2021 ambulatory UNKNOWN PROVIDER Facility:[facility] Procedures Date Procedure Procedure Detail Performing Clinician Start: 12-08-2023 Colonoscopy PHYSICIAN NO [facility] Start: 11-29-2023 Investigation of transfusion reaction PHYSICIAN NO [facility] Start: 04-02-2023 Radiologic exam ches t single view Maribeth Veliz [employer] Work Phone: Start: 04-02-2023 SARS-COV-2, FLU A/B, AND RSV COMBO Maribeth Veliz [employer] Work Phone: Start: 04-02-2023 Urinalysis complete panel - Urine Maribeth Veliz [employer] Work Phone: Start: 04-02-2023 Urnls dip stick/tabl et reagent auto microscopy Maribeth Veliz [employer] Work Phone: Start: 03-06-2023 Hepatic function panel Katieedd Loza DO Work Phone: Plan of Treatment Date Care Activity Detail Author Start: 2040 RSV Immunization aged 60 or older (1 - 1-dose 60+ series) RSV Immunization aged 60 or older (1 - 1-dose 60+ series) [facility] Start: 2030 Zoster Vaccines (1 of 2) Zoster Vaccines (1 of 2) [facility] Start: 12-08-2023 [facility] Start: 11-29-2023 Microscopic observation [Identifier] in Unspecified specimen by Gram stain [facility] Start: 11-29-2023 [facility] Start: 10-31-2023 Influenza vaccination Influenza Vaccine (Season Ended) [facility] Start: 10-19-2023 Patient referral [facility] Work Phone: Start: 02-16-2023 [facility] Start: 10-30-2022 COVID-19 Vaccine ( season) COVID-19 Vaccine ( season) [facility] Start: 10-30-2022 Influenza vaccination Influenza Vaccine (#1) [facility] Start: 1999 DTaP/Tdap/Td Vaccines (1 - Tdap) DTaP/Tdap/Td Vaccines (1 - Tdap) [facility] Start: 1999 Hepatitis A Vaccines (1 of 2 - Risk 2-dose series) Hepatitis A Vaccines (1 of 2 - Risk 2-dose series) [facility] Start: 1999 Hepatitis B Vaccines (1 of 3 - 19+ 3-dose series) Hepatitis B Vaccines (1 of 3 - 19+ 3-dose series) [facility] Start: 1998 Hepatitis C screening Hepatitis C Screening [facility] Start: 1993 Varicella vaccination Varicella Vaccines (1 of 2 - 13+ 2-dose series) [facility] Start: 1992 Depression Screening Depression Screening [facility] Start: 1981 MMR Vaccines (1 of 1 - Standard series) MMR Vaccines (1 of 1 - Standard series) [facility] Start: 1981 Varicella vaccination Varicella Vaccines (1 of 2 - 2-dose childhood series) [facility] Start: 1980 COVID-19 Vaccine (#1) COVID-19 Vaccine (#1) [facility] Start: 1980 Hepatitis B Vaccines (1 of 3 - 3-dose series) Hepatitis B Vaccines (1 of 3 - 3-dose series) [facility] Start: 1980 HIV screening HIV Screening [facility] Start: 1980 Lipid panel Lipid Panel [facility] Bacteria identified in Unspecified specimen by Aerobe culture [facility] Bacteria identified in Unspecified specimen by Anaerobe culture [facility] Hepatitis A virus antibody, IgM type [facility] Hepatitis B core antibody measurement, IgM type [facility] Hepatitis B virus surface Ag [Presence] in Serum or Plasma by Immunoassay [facility] Hepatitis C virus Ig G Ab [Presence] in Serum or Plasma by Immunoassay [facility] Hepatitis C virus RN A [log units/volume] (viral load) in Serum or Plasma by MONTSERRAT with probe detection [facility] Hepatitis C virus RN A [Units/volume] (viral load) in Serum or Plasma by MONTSERRAT with probe detection [facility] Patient Education [facility] Work Phone: Patient referral [facility] Work Phone: Payers Date Payer Category Payer Medicaid [facility] [facility] MED[facility] ODM [id number] 2023-Present [phone] [address] [place] [address] Medicaid HMO [id number] 2023 Medicaid [id number] 2023 Self-pay 2021 Unknown [id number] 1980 Unknown [id number] 1980 Unknown [id number] 1959 Medicaid [id number] Private Health Insurance [id number] Unknown [id number] Unknown [id number] Unknown [id number] Unknown [id number] Unknown [id number] Social History Date Type Detail Facility Tobacco smoking stat [facility] Unknown if ever smoked [facility] Work Phone: Start: 1980 Sex Assigned At Male [facility] Start: 02-16-2023 End: 03-06-2023 Tobacco smoking status NHIS Never smoked tobacco (finding) [facility] Start: 03-06-2023 Sex Assigned At S [facility] Start: 03-06-2023 Alcohol intake Current non-dr arc cutter of alcohol (finding) [facility] Start: 03-06-2023 History of Social function [facility] How often to you hav e a drink containing alcohol? Never [facility] How many standard drinks containing alcohol do you have on a typical day? Patient does not drink [facility] Start: 03-06-2023 Gender identity Identifies as male gender (finding) [facility] Start: 03-06-2023 Sexual orientation Heterosexual (fin ding) [facility] Start: 10-19-2023 End: 11-22-2023 Tobacco smoking status NHIS Ex-smoker (finding) [facility] Start: 11-24-2023 End: 12-08-2023 Tobacco smoking status NHIS Smoker (finding) [facility] Goals Date Patient Goal Desired Activity /State Clinical Notes 03-02-2023 to 12-08-2023 Hany Fuentes MD - 07/28/2023 6:58 AM Ashley Fuentes MD - 07/28/2023 6:58 AM EDTDischarge InstructionsAttachmentsMaribeth Veliz, CANELO - 04/02/2023 9:08 AM ESTDischarge Instructions Note Date & Type Note Facility 12-08-2023 Procedure note [facility] 07-28-2023 Emergency department Note EMERGENCY DEPARTMENT ENCOUNTER Pt Name: [...] AM PAT[facility] [address] [place] [phone] Schedule an appointment as soon as [...] Emergency Medicine Provider Hany Fuentes MD 07/28/23807 documented in this encounter [facility] 07-28-2023 Physician Emergency department Note EMERGENCY DEPARTMENT ENCOUNTER Pt Name: [...] 07/28/23 0701 07/28/23 0701 07/28/23 0701 07/28/23 07 36.6 C (97.9 F) 75 18 130/79 SpO2 Temp Source Heart Rate Source Patient Position 07/28/23 0701 07/28/23 0659 07/28/23700 -- 96 % Temporal Monitor [...] AM PATIENT REF[facility]ED [facility]: [facility] [address] [place] [phone] Schedule an appointment as soon as [...] Emergency Medicine Provider Hany Fuentes MD 07/28/23807 [facility] 04-02-2023 Hospital Discharge instructions Maribeth Veliz APRN - 04/02/2023 11:27 [...] Care Everywhere.Respiratory Syncytial Virus Discharge Instructions, Adult (Malaysian)documented in this encounter [facility] 04-02-2023 Emergency department Note EMERGENCY DEPARTMENT ENCOUNTER Pt Name: [...] Culture. Procedure Abnormality Status --------- ------ Complete Urinalysis[[id number]] Abnormal Final result Please view results for [...] Patient also instructed to continue use of [id number]-wyacwda cold and flu medicine as needed. The patient will be Discharged. Patient is in agreement with this plan. PROCEDURES: Unless otherwise noted below, none Procedures CRITICAL CARE TIME None FINAL IMPRESSION 1. RSV (respiratory syncytial virus infection) DISPOSITION Discharge 04/02/2023 11:26:21 AM PATIENT REFERRED TO: [facility] EMERGENCY DEPT [address] [place] [phone] Go to As needed, If symptoms [...] APRN 04/02/23 1136 documented in this encounter [facility] 04-02-2023 Physician Emergency department Note EMERGENCY DEPARTMENT ENCOUNTER Pt Name: [...] Culture. Procedure Abnormality Status --------- ------ Complete Urinalysis[[id number]] Abnormal Final result Please view results for [...] Patient also instructed to continue use of wnqq-sfr-kryxfcm cold and flu medicine as needed. The patient will be Discharged. Patient is in agreement with this plan. PROCEDURES: Unless otherwise noted below, none Procedures CRITICAL CARE TIME None FINAL IMPRESSION 1. RSV (respiratory syncytial virus infection) DISPOSITION Discharge 04/02/2023 11:26:21 AM PATIENT REFERRED TO: [facility] EMERGENCY DEPT [address] [place] [phone] Go to As needed, If symptoms [...] Medicine Provider Maribeth Veliz APRN 04/02/23 1136 [facility] 03-06-2023 Emergency department Note Discharge instructions reviewed with patient and he understands. He will take 2 doses of 8mg suboxone on 03/07,03/08, and 03/09. He will not take any suboxone on 03/10 for appointment at [facility]. I called [facility] for transportation. Patient discharged to wait in waiting room for ride. Luba Abbott RN 03/06/231936 [facility] 03-06-2023 Emergency department Note Discharge instructions reviewed with patient and he understands. He will take 2 doses of 8mg suboxone on 03/07,03/08, and 03/09. He will not take any suboxone on 03/10 for appointment at [facility]. I called [facility] for transportation. Patient discharged to wait in waiting room for ride. Luba Abbott RN 03/06/231936 Patient spoke with Peer assistant field hockey coach on the phone. PRC card provided. Verified with Title Officer at [facility] that he is a patient there. Luba Abbott RN 03/06/231908 Patient in MAT room, with suboxone prescription, has 6 8 mg suboxone strips. States the suboxone is not working with a plan to transition to methadone on Wednesday. Looking to increase dose as we are unable to initiate methadone in the ED. Addiction medicine was consulted from [facility] and stated there is no concern to increase dose with methadone transition in the future but to instruct patient to hold dose the morning of his appointment. Ness Beaver was transferred from [facility] to [facility] for suboxone dosing. He was driven by [employer] ([employer] employee. Dr. Uribe was consulted to discuss plan of care for this patient. He was taking suboxone 16mg and had elevated liver enzymes. His dose was stopped in January. On 02/21 he was sent to [facility] due to potential suicidal ideation. He restarted suboxone on 02/22 at 4mg. He is currently on 8/2mg per day. Last dose was on 03/05/2023 suboxone / film. He has the filled rx on him. He has an appointment to transfer to [facility] on 03/10/23 at [facility]. Luba Abbott RN 03/06/23 1715 EMERGENCY DEPARTMENT ENCOUNTER Pt Name: Ness Beaver Birthdate 1980 Date of evaluation: 03/06/2023 ED Provider: Maribeth Veliz APRN Patient seen independently within my scope of practice with an Emergency Medicine attending available for supervision. CHIEF COMPLAINT Chief Complaint Patient presents with Addiction Problem Sent from [place] via Dr. Uribe to see MAT nurse. Acc was consulted from [place] via telehealth. Pt stated on 16/4 mg suboxone via telehealth. Now stating on 8/2 and prescription endorses this. His goal is to transition to methadone and went to [place] today through [facility] but was unable to dose due to them not having his information. They sent him to [facility]. Unable to dose methadone as a new prescription but per addiction consult plan is to increase dose of suboxone. HISTORY OF PRESENT ILLNESS (Location/Symptom, Timing/Onset, Context/Setting, Quality, Duration, Modifying Factors, Severity) Note limiting factors. I wore appropriate PPE for the entirety of this encounter. HPI Ness Beaver is a 42 y.o. who presents to the emergency department from [place] ED for Suboxone dosing. Patient states that his Suboxone therapy was discontinued on 21 February due to elevated liver enzymes. Patient states he was then sent to [facility] due to suicidal ideation. Suboxone therapy restarted on 22 February at 4 mg daily. Patient has been titrated up to 8 mg daily with his last dose yesterday. He does however state that this dose has not been sufficient for managing withdrawal symptoms. There was a misunderstanding at [facility] at which time it was understood that patient was on 16 mg daily of Suboxone and still needed an increase in dose. Because of this patient was sent to [facility] to be seen by addiction medicine physician. Patient does have 6 films of 8/2 Suboxone on him. Has appointment to transfer to methadone on 03/10/2023 at [facility]. Patient endorses some chills, mild nausea, mild [...] ED. I discussed their care with addiction companion caregiver nurses dmitry and Rudi. They had reached [...] Emergency Medicine Provider Maribeth Veliz APRN 03/06/23 0305 documented in this encounter [facility] 03-06-2023 Emergency department Note Patient spoke with Peer assistant field hockey coach on the phone. PRC card provided. Verified with Title Officer at [facility] that he is a patient there. Luba Abbott RN 03/06/23 2457 [facility] 03-06-2023 Hospital Discharge instructions Maribeth Veliz APRN - 03/06/2023 6:56 PM EST As discussed with myself, [facility] nurses, and Dr. Uribe with [...] be sent through Care Everywhere.Drug Level Monitoring (Malaysian)documented in this encounter [facility] 03-06-2023 Emergency department Triage note Patient in MAT room, with suboxone prescription, has 6 8 mg suboxone strips. States the suboxone is not working with a plan to transition to methadone on Wednesday. Looking to increase dose as we are unable to initiate methadone in the ED. Addiction medicine was consulted from [facility] and stated there is no concern to increase dose with methadone transition in the future but to instruct patient to hold dose the morning of his appointment. [facility] 03-06-2023 Emergency department Note Ness Beaver was transferred from [facility] to [facility] for suboxone dosing. He was driven by [employer]) employee. Dr. Uribe was consulted to discuss plan of care for this patient. He was taking suboxone 16mg and had elevated liver enzymes. His dose was stopped in January. On 02/21 he was sent to [facility] due to potential suicidal ideation. He restarted suboxone on 02/22 at 4mg. He is currently on 8/2mg per day. Last dose was on 03/05/2023 suboxone 8/2 film. He has the filled rx on him. He has an appointment to transfer to Methadone on 03/10/23 at [facility]. Luba Abbott RN 03/06/23 2590 [facility] 03-06-2023 Physician Emergency department Note EMERGENCY DEPARTMENT ENCOUNTER Pt Name: Ness Beaver Birthdate 1980 Date of evaluation: 03/06/2023 ED Provider: Maribeth Veliz APRN Patient seen independently within my scope of practice with an Emergency Medicine attending available for supervision. CHIEF COMPLAINT Chief Complaint Patient presents with Addiction Problem Sent from [place] via Dr. Uribe to see MAT nurse. Acc was consulted from [place] via telehealth. Pt stated on 16/4 mg suboxone via telehealth. Now stating on 8/ and prescription endorses this. His goal is to transition to methadone and went to [facility] but was unable to dose due to them not having his information. They sent him to [facility]. Unable to dose methadone as a new prescription but per addiction consult plan is to increase dose of suboxone. HISTORY OF PRESENT ILLNESS (Location/Symptom, Timing/Onset, Context/Setting, Quality, Duration, Modifying Factors, Severity) Note limiting factors. I wore appropriate PPE for the entirety of this encounter. HPI Ness Beaver is a 42 y.o. who presents to the emergency department from [facility] for Suboxone dosing. Patient states that his Suboxone therapy was discontinued on 21 February due to elevated liver enzymes. Patient states he was then sent to [facility] due to suicidal ideation. Suboxone therapy restarted on 22 February at 4 mg daily. Patient has been titrated up to 8 mg daily with his last dose yesterday. He does however state that this dose has not been sufficient for managing withdrawal symptoms. There was a misunderstanding at [facility] at which time it was understood that patient was on 16 mg daily of Suboxone and still needed an increase in dose. Because of this patient was sent to [facility] to be seen by addiction medicine physician. Patient does have 6 films of 8/2 Suboxone on him. Has appointment to transfer to methadone on 03/10/2023 at [facility]. Patient endorses some chills, mild nausea, mild [...] ED. I discussed their care with addiction companion caregiver nurses dmitry and Rudi. They had reached [...] Emergency Medicine Provider Maribeth Veliz APRN 03/06/23 7696 [facility] 03-06-2023 Emergency department Note Patient being transported over to [facility] by private vehicle (I spoke with Julio Cesar from [employer] who is coming to pick the patient up). Resources have been sent with patient. Vitals remain stable. Viki Mathew RN 03/06/23 1455 [facility] 03-06-2023 Emergency department Note Patient being transported over to [facility] by private vehicle (I spoke with Julio Cesar from [employer] who is coming to pick the patient up). Resources have been sent with patient. Vitals remain stable. Viki Mathew RN 03/06/23 1457 Faxed consent form for Addiction medicine and Peer assistant field hockey coach pamphlet to [facility] Esme Jeter RN 03/06/23 1301 Esme Jeter RN 03/06/23 1302 MAT nurse unavailable until 11 am. Pt aware and will wait in waiting room until he can be evaluated Reyna Cason RN 03/06/23 5021 EMERGENCY DEPARTMENT ENCOUNTER Pt Name: Ness Beaver [...] to detox. Was dropped off here by [facility] to sort out a dose. HISTORY OF PRESENT ILLNESS (Location/Symptom, Timing/Onset, Context/Setting, Quality, Duration, Modifying Factors, Severity) Note limiting factors. I wore appropriate PPE for the entirety of this encounter. HPI 42-year-old male presents emergency department today seeking methadone initiation. Is currently at [facility] and was dropped off here for possible emergency dose. He was taken to [facility] and they have an appointment for him [...] No Drug use: No Comment: methadone SCREENINGS [place] Coma Scale Best Eye Response: Spontaneous Best Verbal Response: Oriented Best Motor Response: Follows commands Sophia Coma Scale Score: 15 PHYSICAL EXAM ED Triage Vitals Temp Heart Rate Resp BP 03/06/2372603/06/2372603/06/2372603/06/23726 36.6 C (97.8 F) 67 18 (!) 142/86 SpO2 Temp Source Heart Rate Source Patient Position 03/06/23 0703/06/23 0703/06/23 0703/06/23 1157 100 % Temporal Monitor Sitting BP [...] today seeking methadone initiation. Is currently at [facility] and was dropped off here for possible emergency dose. He was taken to [facility] and they have an appointment for him [...] to be evaluated by MAT nurse at [facility] if would like to be bridged from Suboxone to methadone. We cannot dispense methadone here in the ED. Told patient that apparently he needs to have his liver function test checked given his history of hepatitis and also be evaluated by MAT nurse over there if he would like his dose of Suboxone potentially increased prior to his appointment at [facility] for methadone dosing on Wednesday. [BM] 1449 Patient does have a ride to take him to [facility] for evaluation by the MAT nurse will speak to ED physician for ED to ED transfer. [BM] 1452 Accepted at [facility] emergency department by Dr. Lorenzo for evaluation by MAT nurse. [BM] ED Course User Index [BM] Katie Loza DO Diagnoses as of 03/06/23 1528 History of hepatitis Transaminitis History of opioid abuse (CMS/HCC) (HCC) Medications - No data to display REVAL: CRITICAL CARE TIME FINAL IMPRESSION 1. History of hepatitis 2. Transaminitis 3. 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 Pt aware and will wait in waiting room until he can be evaluated Reyna Cason RN 03/06/23 0758 [facility] 03-06-2023 Physician Emergency department Note EMERGENCY DEPARTMENT ENCOUNTER Pt Name: [...] to detox. Was dropped off here by [facility] to sort out a dose. HISTORY OF PRESENT ILLNESS (Location/Symptom, Timing/Onset, Context/Setting, Quality, Duration, Modifying Factors, Severity) Note limiting factors. I wore appropriate PPE for the entirety of this encounter. HPI 42-year-old male presents emergency department today seeking methadone initiation. Is currently at [facility] and was dropped off here for possible emergency dose. He was taken to [facility] and they have an appointment for him [...] Response: Oriented Best Motor Response: Follows commands [place] Coma Scale Score: 15 PHYSICAL EXAM ED [...] today seeking methadone initiation. Is currently at [facility] and was dropped off here for possible emergency dose. He was taken to [facility] and they have an appointment for him [...] to be evaluated by MAT nurse at [facility] if would like to be bridged from Suboxone to methadone. We cannot dispense methadone here in the ED. Told patient that apparently he needs to have his liver function test checked given his history of hepatitis and also be evaluated by MAT nurse over there if he would like his dose of Suboxone potentially increased prior to his appointment at [facility] for methadone dosing on Wednesday. [BM] 1449 Patient does have a ride to take him to [facility] for evaluation by the MAT nurse will speak to ED physician for ED to ED transfer. [BM] 1452 Accepted at [facility] emergency department by Dr. Lorenzo for evaluation by MAT nurse. [BM] ED Course User Index [BM] Katie Loza DO Diagnoses as of 03/06/23 1528 History of hepatitis Transaminitis History of opioid abuse (CMS/HCC) (HCC) Medications - No data to display REVAL: CRITICAL CARE TIME FINAL IMPRESSION 1. History of hepatitis 2. Transaminitis 3. History of opioid abuse (CMS/HCC) (HCC) DISPOSITION Transfer To [facility] 03/06/2023 02:49:31 PM PATIENT REFERRED TO: [facility] [address] [address] Schedule an appointment as soon as possible for a visit in 2 days [facility] [address] [facility] [id number] As needed, If symptoms worsen [...] Medicine Provider Katie Loza DO 03/06/23 1528 [facility] 03-02-2023 Evaluation note Encounter Date Diagnosis Assessment Notes Mar, Elevated liver enzymes (ICD-10 - R74.8) [facility] Other Evaluation noteNo assessment information available [facility] Work Phone: [email or web address] note* Diagnosis History of hepatitis- Primary Transaminitis Nonspecific elevation of levels of transaminase or lactic acid dehydrogenase (LDH) History of opioid abuse (CMS/HCC) (HCC) [facility] Diagnosis Encounter for monitoring Suboxone maintenance therapy- Primary [facility] Diagnosis RSV (respiratory syncytial virus infection)- Primary Respiratory syncytial virus (RSV) [facility] Diagnosis Lumbar strain, initial encounter- Primary [facility] Diagnosis Onset Date Resolution Status Allergic rhinitis acute Anxiety acute Depression acute Family history of colon cancer acute Hepatitis C acute Screening for malignant neoplasm of colon acute [facility] Work Phone: Evaluation note* Diagnosis Onset Date Resolution Status Allergic rhinitis acute Anxiety acute Depression acute Family history of colon cancer acute Former smoker acute Hepatitis C acute History of drug abuse acute Screening for malignant neoplasm of colon acute Vapes nicotine containing substance acute [facility] Work Phone: Evaluation note* Diagnosis Onset Date Resolution Status Allergic rhinitis acute Anxiety acute Depression acute Family history of colon cancer acute Former smoker acute Hepatitis C acute History of drug abuse acute Screening for malignant neoplasm of colon acute Vapes nicotine containing substance acute Abscess acute Abscess acute [facility] Work Phone: History and physical note Author Chay Weber [facility] December 08, 2023 9:17am Note Date/Time December 08, 2023 9: 07am [facility] [address] [place] [address] Gastroenterology H&P Signed Patient: Ness Beaver MR#: [id number] 1230 : 1980 Acct:[id number] Age/Sex: 43 / M Adm Date: 4 Loc: Room: Type: [facility] Attending Dr: Chay Weber MD Copies to: Chay Weber MD NO FAMILY PHYSICIAN~ Date of Service: 12/08/2023 HISTORY & PHYSICAL: Patient's history with special attention to the cardiovascular, pulmonary systems and the current problem was reviewed with the patient immediately prior to the procedure. Present medications and doses reviewed in the EMR. Allergies and pertinent laboratory tests were also reviewedat this time in the EMR. The physical examination, as below, was then performed. Indication, assessment and HPI: 43-year-old man with family history of colon cancer here for screening colonoscopy Family history of GI malignancy? yes PHYSICAL EXAMINATION General appearance: NAD Skin: No jaundice Head: NC/AT Eyes: Anicteric Neck: Supple Lungs: Normal respiratory effort, no use of accessory muscles Abdomen: nondistended Neuro: Ox3. REVIEW OF SYSTEMS Constitutional: Denies malaise, fevers Cardiovascular: Denies chest pain, palpitations Respiratory: Denies shortness of breath, wheezing Gastrointestinal: As per HPI Genitourinary: Denies dysuria, polyuria Musculoskeletal: Denies joint swelling, joint stiffness Neurological: Denies confusion, numbness, tingling Endocrine: Denies fatigue Written informed consent obtained from the patient. Risks (including but not limited to perforation, infection, bloating, bleeding, need for emergent surgeryand loss of life), benefits and alternatives explained and questions answered. The patient verbalized understanding. Based on history patient is an appropriate candidate for the procedure. Chay Weber M.D. Documented By: Chay Weber MD 12/08/23905 Signed By: <Electronically signed by Chay Weber MD> 12/08/23916 [facility] Work Phone: History general Narrative - Reported* Type Description Date Surgical History tonsillectomy and adenoidectomy [facility] Other Hospital Discharge instructions Additional Instructions Follow-up with Dr. Jerome You may return to [facility] Work Phone: Hospital Discharge instructions* Attachments The following attachments cannot be sent through Care Everywhere. * Back Muscle Strain (Malaysian) * Back Stretches on Floor (Malaysian) documented in this [facility] Discharge instructions Additional Instructions DISCHARGE INSTRUCTIONS FOR COLONOSCOPY WHAT TO EXPECT: - You may feel full, gassy or cramping after your procedure. In some cases, this may be from a few hours to a day. Walking may help relieve the discomfort. - If you have polyp(s) removed you may note some minor bloody discharge after your first bowel movements. - You should begin to recover from anesthesia within 1 hour of the procedure, however may feel groggy for the next 24 hours. DO's AND DON'Ts: - Call your doctor right away if you have a hard abdomen, severe pain, are passing lots of bright red blood or clots. - Call your doctor if you develop any rashes, hives or difficulty breathing. - Let your doctor know if you have not had a bowel movement by 3 days after your procedure. - If you take 81 mg aspirin for your heart it is safe to resume this medication. - If you take other blood thinner medications your doctor will instruct you when these can safely be resumed. - Do NOT drive for 24 hours. - Do NOT operate machinery such as power tools, lawn mowers, snow blowers, sewing machines, etc. for 24 hours. - Avoid alcoholic beverages and drugs for allergies, nerves, or sleep. - Do NOT stay alone. Do NOT leave your child unattended. - Do NOT make important personal or business decisions or sign any legal documents. - Eat solid foods and drink liquids in smaller amounts than usual until normal appetite returns. If you should experience an upset stomach, liquids high in sugar content (soda, Aric-Aid, non-acid juices) are recommended. - You can resume normal activities tomorrow. FOLLOW UP & RECOMMENDATIONS: -Notify the doctor if you have any problems. -Repeat colonoscopy due to poor prep -Follow up with PCP. -Office number [phone]. [facility] Work Phone: Summary Purpose Family History No Family History Records Found Relationship Condition Age at Onset Recorded Date/T kylah Not Specified Malignant neoplasm of colon Unknown Relationship Condition Age at Onset Recorded Date/T kylah family member Malignant neoplasm of colon Unknown Advance Directives No Advanced Directives Records Found [...] neoplasm of colon Vapes nicotine containing substance Chief Complaint Establish boil on middle of back [facility] ER f/u:Back Knot,Short Breath Reason for Visit Allergic rhinitis Anxiety Depression Family history of colon cancer Former smoker Hepatitis C History of drug abuse Screening for malignant neoplasm of colon Vapes nicotine containing substance Abscess Abscess Chief Complaint Establish boil on middle of back [facility] ER f/u:Back Knot,Short Breath Abscess Reason for Visit Allergic rhinitis Anxiety Depression Family history of colon cancer Former smoker Hepatitis C History of drug abuse Screening for malignant neoplasm of colon Vapes nicotine containing substance Abscess Abscess Chief Complaint Establish boil on middle of back [facility] ER f/u:Back Knot,Short Breath L02.91 family hx of colon cancer family hx of colon cancer Reason for Visit Allergic rhinitis Anxiety Depression Family history of colon cancer Former smoker Hepatitis C History of drug abuse Screening for malignant neoplasm of colon Vapes nicotine containing substance Abscess Abscess Chief Complaint Establish boil on middle of back [facility] ER f/u:Back Knot,Short Breath L02.91 family hx of colon cancer family hx of colon cancer R94.31 Reason for Visit Allergic rhinitis Anxiety Depression Family history of colon cancer Former smoker Hepatitis C History of drug abuse Screening for malignant neoplasm of colon Vapes nicotine containing substance Abscess Abscess Additional Source Comments (unrecognized sect ion and content) No Status Records FoundNo Status Records FoundNo Status Records FoundNo Status Records FoundNo Status Records Found INFORMATION SOURCE (unrecogn ized section and content) DATE CREATED AUTHOR 11/01/2020 [facility] DATE CREATED AUTHOR AUTHOR'S ORGANIZ ATION 09/25/2021 [facility] DATE CREATED AUTHOR AUTHOR'S ORGANIZ ATION 02/20/2022 [facility] DATE CREATED AUTHOR AUTHOR'S ORGANIZ ATION 07/29/2023 [facility] DATE CREATED AUTHOR AUTHOR'S ORGANIZ ATION 12/27/2023 [facility] Care Teams (unrecognized sec tion and content) Team Status: Active Member Role Status Dates PHYSICIAN NO FAMILY Primary Care Provider Active Team Status: Active Member Role Status Dates Asiya Boyd APRN [employer]-C Primary Care Provider Active Start: October 08, 2023 John Sheth DO Attending Provider Active Sta rt: October 08, 2023 Team Status: Inactive Member Role Status Dates Asiya Boyd APRN [employer] CLE[employer]ER-C Primary Care Provider, Attending Provider Active Start: October 19, 2023 End: October 19, 2023 Team Status: Inactive Member Role Status Dates Asiya Boyd APRN [employer]-C Primary Care Provider Active Start: October 312023 End: November 22, 2023 Poonam Velázquez APRN Attending Provider Active S tart: November 22, 2023 End: November 22, 2023 Team Status: Active Member Role Status Dates Asiya Boyd APRN [employer]-C Primary Care Provider Active Start: October 312023 Tatyana Hardin MD Attending Provider Active Sta rt: November 23, 2023 Team Status: Inactive Member Role Status Dates Asiya Boyd APRN [employer] CLE[employer]ER-C Primary Care Provider, Attending Provider Active Start: November 29, 2023 End: November 29, 2023 Team Status: Inactive Member Role Status Dates Asiya Body APRN [employer]-C Attending Provider Active Start: October End: November 29, 2023 PHYSICIAN NO FAMILY Primary Care Provider Active Start: November 29, 2023 End: November 29, 2023 Team Status: Inactive Member Role Status Dates Chay Weber MD Attending Provider Active Start: December 08, 2023 End: December 08, 2023 PHYSICIAN NO FAMILY Primary Care Provider Active Start: December 08, 2023 End: December 08, 2023 Team Status: Active Member Role Status Dates Chay Weber MD Attending Provider, Other Provider Active Start: December 08, 2023 PHYSICIAN NO FAMILY Primary Care Provider Active Start: December 08, 2023 Team Status: Inactive Member Role Status Dates PHYSICIAN NO FAMILY Primary Care Provider Active Meera Pride MD Attending Provider Active Team Status: Inactive Member Role Status Dates PHYSICIAN NO FAMILY Primary Care Provider Active Joshua Burger MD Emergency Provider Active 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 Relationship Specialty Start Date End Date [facility] [address] [place] [address] PCP - General /08/22 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 Relationship Specialty Start Date End Date [facility] [address] [place] [address] PCP - General /24 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 Relationship Specialty Start Date End Date [facility] [address] [place] [address] PCP - General 03/06/23 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 Relationship Specialty Start Date End Date [facility] [address] [place] [address] PCP - General 03/06/23 Team Status: Active Member Role Status Dates Asiya Boyd APRN M[employer] CLEANER-C Primary Care Provider Active Team Status: Inactive Member Role Status Dates CANELO Lee Attending Provider Act harper Start: November 29, 2023 End: November 29, 2023 Team Status: Inactive Member Role Status Dates Asiya Boyd APRN [employer]ER-C Primary Care Provider Active Start: November End: December 22, 2023 Stan Richards MD Attending Provider Active Star t: December 22, 2023 End: December 22, 2023 Goals (unrecognized section and content) Goals may be documented in a n alternate sectionGoals may be documented in an alternate sectionNo InformationGoals may be documented in an alternate sectionGoals may be documented in an alternate sectionGoals may be documented in an alternate sectionGoals [...] to detox. Was dropped off here by [facility] to sort out a dose. Reason Comments Addiction Problem Sent from [place] via Dr. Uribe to see MAT nurse. Acc was consulted from [place] via telehealth. Pt stated on 16/4 mg suboxone via telehealth. Now stating on 09/30 and prescription endorses this. His goal is to transition to methadone and went to [place] today through [facility] but was unable to dose due to them not having his information. They sent him to [facility]. Unable to dose methadone as a [...] BE BASED ON THE PRIMARY CLINICAL RECORDS. [facility] [employer] [facility]. provides no warranty or guarantee of the accuracy or completeness of information in this document.
--- NOTE | 2024-04-20 10:15 | ED.GENADUL1 ---
HPI HPI - General Adult General Chief complaint: Abdominal Pain Stated complaint: DEHYDRATION VOMITTING MUSCLE ACHES Time Seen by Provider: 04/20/24 10:15 Source: patient Mode of arrival: walk-in History of Present Illness HPI narrative: Patient presents with a chief complaint of generalized abdominal pain and vomiting. His sister provided more detailed history. 8 days ago he used meth after which she drove down to [place] with his mother. His mother reported that he was overactive and agitated and that the vomiting is started since then. He has a past history of meth abuse and is currently in a methadone clinic. Related Data Home Medications ?Medication ?Instructions ?Recorded ?Confirmed loratadine 10 mg tablet 10 mg PO DAILY PRN allergy symptoms 02/12/23 11/23/23 methadone 150 mg PO DAILY 10/08/23 11/23/23 sertraline 50 mg tablet 50 mg PO Q24H 11/23/23 11/23/23 Previous Rx's ?Medication ?Instructions ?Recorded amoxicillin 875 mg-potassium 1 tab PO Q12H #14 tabs 11/23/23 clavulanate 125 mg tablet doxycycline hyclate 100 mg tablet 100 mg PO BID 7 days #14 tabs 11/23/23 ibuprofen 600 mg tablet 600 mg PO Q8H PRN pain #20 tabs 11/23/23 Allergies Allergy/AdvReac Type Severity Reaction Status Date / Time No Known Drug Allergies Allergy Verified 11/23/23 10:12 Opioid HPI Opioid Management Most Recent Opioid Data: Last Pain Scale 8 04/20/24 10:34 04/20/24 Ur Phencyclidine Scrn Negative (NEGATIVE) 04/20/24 11:31 04/20/24 Review of Systems ROS Status of ROS 10 or more systems reviewed and unremarkable except as noted in history and below [facility] Medical History Methadone maintenance therapy patient ?F11.20 - Opioid dependence, uncomplicated (ICD-10) Social History Smoking status: Former smoker Little interest or pleasure in doing things: not at all Feeling down, depressed, or hopeless: not at all Exam Narrative Exam Narrative: Patient appears ill. Vital signs are stable and are as documented. He looks pale. Pupils are equal and reactive. There is no scleral icterus. HEENT exam is normal to inspection. Neck is supple. Lung sounds are clear to auscultation bilaterally with good air entry. Heart has regular rate and rhythm. Abdomen is mildly protuberant and fairly soft without fluid wave or organomegaly. Lower extremities are warm and dry. Speech and mentation are clear and intact. There is no facial asymmetry. Patient moves all extremities actively. Constitutional Vital Signs, click to edit/add: Last Vital Signs Temp 98.0 F 04/20/24 10:04 Pulse 89 04/20/24 13:00 Resp 13 04/20/24 13:00 BP 160/83 H 04/20/24 13:00 Pulse Ox 98 04/20/24 12:50 O2 Del Method Room Air 04/20/24 10:04 Course Vital Signs Vital signs: Vital Signs Temperature 98.0 F 04/20/24 10:04 Pulse Rate 80 04/20/24 10:04 Respiratory Rate 18 04/20/24 10:04 Blood Pressure 164/89 H 04/20/24 10:04 Pulse Oximetry 98 04/20/24 10:04 Oxygen Delivery Method Room Air 04/20/24 10:04 Temperature 98.0 F 04/20/24 10:04 Pulse Rate 89 04/20/24 13:00 Respiratory Rate 13 04/20/24 13:00 Blood Pressure 160/83 H 04/20/24 13:00 Pulse Oximetry 98 04/20/24 12:50 Oxygen Delivery Method Room Air 04/20/24 10:04 Medical Decision Making [facility] Narrative Medical decision making narrative: EKG is interpreted by me and shows sinus rhythm at a rate of 78 beats a minute. There is left axis deviation and incomplete right bundle branch block pattern. Patient does not have QRS widening or hyperacute T waves to suggest hyperkalemia. Patient's CBC was unremarkable. BMP was markedly abnormal. He has signs of kidney failure with a BUN of 176 and a creatinine of 20. Blood work was repeated to confirm this. Blood glucose is 82. Potassium is elevated at 6.7 and the bicarb is low at 14. A slight bump in his transaminases also reported with an AST of 52 and an ALT of 20. Muscle enzymes are also elevated with a CK of 742 and a myoglobin of 254. Since his symptoms have been present for the last anywhere from 5 days to 2 weeks I wonder if he initially went into rhabdomyolysis and then developed kidney failure. Patient is able to keep fluids down and he has been voiding also. He was administered 2 g of IV calcium gluconate, Lokelma 10 g orally, dextrose 25 g IV and insulin 5 units IV and was started on a bicarb drip. The plan is to transfer him to [facility] for admission where he has been accepted by their hospitalist Dr. Cristiana Mcmullen. I also spoke with the can striper Dr. Bravo who wanted another 100 mEq of sodium bicarbonate given by IV bolus. Patient has continued to remain hemodynamically stable and will be transferred by EMS. Differential Diagnosis Differential Diagnosis: Gastroenteritis, kidney failure, acute abdomen, urinary obstruction, sepsis Medical Records Medical records reviewed: Yes I reviewed the patient's medical records Lab Data Lab results reviewed: Yes I reviewed the patient's lab results Labs: Lab Results 04/20/24 04/20/24 04/20/24 Range/Units 10:18 11:18 11:31 WBC 7.9 (4.0-11.0) 10^3/uL RBC 4.35 L (4.70-6.10) 10^6/uL Hgb 12.2 L (14.0-18.0) g/dL Hct 35.7 L (42.0-54.0) % MCV 82.1 (80.0-94.0) fL MCH 28.0 (25.9-34.0) pg MCHC 34.2 (29.9-35.2) g/dL RDW 14.3 (11.0-15.0) % Plt Count 379 (150-450) 10^3/uL MPV 9.9 (9.5-13.5) fL Neut % (Auto) 82.0 H (43.0-75.0) % Lymph % (Auto) 9.9 L (20.5-60.0) % [place] % (Auto) 6.4 (1.7-12.0) % Eos % (Auto) 1.0 (0.9-7.0) % Baso % (Auto) 0.1 L (0.2-2.0) % Neut # (Auto) 6.5 (1.4-6.5) 10^3/uL Lymph # (Auto) 0.8 L (1.2-3.8) 10^3/uL [place] # (Auto) 0.5 (0.3-0.8) 10^3/uL Eos # (Auto) 0.1 (0.0-0.7) 10^3/uL Baso # (Auto) 0.0 (0.0-0.1) 10^3/uL Abs Immat Gran (auto) 0.05 H (0.00-0.03) 10^3/uL Imm/Tot Granulo (auto) 0.6 H (0.0-0.5) % Sodium 135 L (136-145) mmol/L Potassium 6.7 H* (3.5-5.1) mmol/L Chloride 97 L (98-107) mmol/L Carbon Dioxide 14.0 L (21.0-32.0) mmol/L Anion Gap 30.7 BUN 176.0 H* (7.0-18.0) mg/dL Creatinine 20.15 H* (0.70-1.30) mg/dL Est GFR ( Amer) 3 L (>=60 mL/min/1.73m^2) Est GFR (Non-Af Amer) 3 L (>=60 mL/min/1.73m^2) BUN/Creatinine Ratio 8.7 Glucose 82 (74-106) mg/dL Calcium 9.3 (8.5-10.1) mg/dL Total Bilirubin 0.4 (0.2-1.0) mg/dL Direct Bilirubin 0.1 (0.0-0.2) mg/dL AST 52 H (15-37) U/L ALT 206 H (16-63) U/L Alkaline Phosphatase 60 (46-116) U/L Total Creatine Kinase 742 H* (39-308) U/L Myoglobin 254 H* (16-96) ng/mL Troponin I High Sens 7.1 (4.0-76.1) pg/mL Total Protein 7.1 (6.4-8.2) g/dL Albumin 3.3 L (3.4-5.0) g/dL Globulin 3.8 g/dL Albumin/Globulin Ratio 0.9 Lipase 16.0 (16.0-77.0) U/L Urine Color Lt. yellow (YELLOW) Urine Clarity Clear (CLEAR) Urine pH 6.0 (5.0-9.0) Ur Specific [place] <=1.005 A (1.005-1.025) Urine Protein Trace (NEG/TRACE) mg/dL Urine Glucose (UA) Negative (NEGATIVE) mg/dL Urine Ketones Negative (NEGATIVE) mg/dL Urine Occult Blood Large A (NEGATIVE) Urine Nitrite Negative (NEGATIVE) Urine Bilirubin Negative (NEGATIVE) Urine Urobilinogen 0.2 (0.2-1.0) EU/dL Ur Leukocyte Esterase Moderate A (NEGATIVE) Urine RBC 5-10 A (0-2) #/HPF Urine WBC 10-20 A (NONE SEEN) #/HPF Ur Squamous Epith Cells Few A (NONE/RARE) #/LPF Urine Crystals None seen (None Seen) #/HPF Urine Bacteria Small A (NONE SEEN) #/HPF Urine Casts None seen (NONE SEEN) #/LPF Urine Mucus None seen (NONE SEEN) Ur Culture Indicated? Yes-[facility] Urine Opiates Screen Negative (NEGATIVE) Ur Buprenorphine Scrn Negative (NEGATIVE) Ur Oxycodone Screen Negative (NEGATIVE) Urine Methadone Screen Positive A (NEGATIVE) Ur Barbiturates Screen Negative (NEGATIVE) U Tricyclic Antidepress Negative (NEGATIVE) Ur Phencyclidine Scrn Negative (NEGATIVE) Ur Amphetamines Screen Positive A (NEGATIVE) U Methamphetamines Scrn Negative (NEGATIVE) U Benzodiazepines Scrn Negative (NEGATIVE) Urine Cocaine Screen Negative (NEGATIVE) U Cannabinoids Screen Negative (NEGATIVE) Ethanol Quant <3 mg/dL POC Glucose (74-106) mg/dL 04/20/24 Range/Units 12:32 WBC (4.0-11.0) 10^3/uL RBC (4.70-6.10) 10^6/uL Hgb (14.0-18.0) g/dL Hct (42.0-54.0) % MCV (80.0-94.0) fL MCH (25.9-34.0) pg MCHC (29.9-35.2) g/dL RDW (11.0-15.0) % Plt Count (150-450) 10^3/uL MPV (9.5-13.5) fL Neut % (Auto) (43.0-75.0) % Lymph % (Auto) (20.5-60.0) % [place] % (Auto) (1.7-12.0) % Eos % (Auto) (0.9-7.0) % Baso % (Auto) (0.2-2.0) % Neut # (Auto) (1.4-6.5) 10^3/uL Lymph # (Auto) (1.2-3.8) 10^3/uL [place] # (Auto) (0.3-0.8) 10^3/uL Eos # (Auto) (0.0-0.7) 10^3/uL Baso # (Auto) (0.0-0.1) 10^3/uL Abs Immat Gran (auto) (0.00-0.03) 10^3/uL Imm/Tot Granulo (auto) (0.0-0.5) % Sodium (136-145) mmol/L Potassium (3.5-5.1) mmol/L Chloride (98-107) mmol/L Carbon Dioxide (21.0-32.0) mmol/L Anion Gap BUN (7.0-18.0) mg/dL Creatinine (0.70-1.30) mg/dL Est GFR ( Amer) (>=60 mL/min/1.73m^2) Est GFR (Non-Af Amer) (>=60 mL/min/1.73m^2) BUN/Creatinine Ratio Glucose (74-106) mg/dL Calcium (8.5-10.1) mg/dL Total Bilirubin (0.2-1.0) mg/dL Direct Bilirubin (0.0-0.2) mg/dL AST (15-37) U/L ALT (16-63) U/L Alkaline Phosphatase (46-116) U/L Total Creatine Kinase (39-308) U/L Myoglobin (16-96) ng/mL Troponin I High Sens (4.0-76.1) pg/mL Total Protein (6.4-8.2) g/dL Albumin (3.4-5.0) g/dL Globulin g/dL Albumin/Globulin Ratio Lipase (16.0-77.0) U/L Urine Color (YELLOW) Urine Clarity (CLEAR) Urine pH (5.0-9.0) Ur Specific [place] (1.005-1.025) Urine Protein (NEG/TRACE) mg/dL Urine Glucose (UA) (NEGATIVE) mg/dL Urine Ketones (NEGATIVE) mg/dL Urine Occult Blood (NEGATIVE) Urine Nitrite (NEGATIVE) Urine Bilirubin (NEGATIVE) Urine Urobilinogen (0.2-1.0) EU/dL Ur Leukocyte Esterase (NEGATIVE) Urine RBC (0-2) #/HPF Urine WBC (NONE SEEN) #/HPF Ur Squamous Epith Cells (NONE/RARE) #/LPF Urine Crystals (None Seen) #/HPF Urine Bacteria (NONE SEEN) #/HPF Urine Casts (NONE SEEN) #/LPF Urine Mucus (NONE SEEN) Ur Culture Indicated? Urine Opiates Screen (NEGATIVE) Ur Buprenorphine Scrn (NEGATIVE) Ur Oxycodone Screen (NEGATIVE) Urine Methadone Screen (NEGATIVE) Ur Barbiturates Screen (NEGATIVE) U Tricyclic Antidepress (NEGATIVE) Ur Phencyclidine Scrn (NEGATIVE) Ur Amphetamines Screen (NEGATIVE) U Methamphetamines Scrn (NEGATIVE) U Benzodiazepines Scrn (NEGATIVE) Urine Cocaine Screen (NEGATIVE) U Cannabinoids Screen (NEGATIVE) Ethanol Quant mg/dL POC Glucose 124 H (74-106) mg/dL Critical Care Time Critical Care Time Critical Care Time: Yes Total Critical Care Time: 45 Attestation: Time was spent in evaluating the patient, reviewing his medical records. I also reviewed his lab work and then repeated some of the lab work, had extensive discussion with his family and with the accepting hospitalist as well as can striper. Discharge Plan Discharge Chief Complaint: Abdominal Pain Clinical Impression: Acute hyperkalemia, JASMINA (acute kidney injury) Rhabdomyolysis Qualifiers: Rhabdomyolysis type: non-traumatic Qualified Code(s): M62.82 - Rhabdomyolysis Prescriptions / Home Meds: No Action methadone 150 mg PO DAILY sertraline 50 mg tablet 50 mg PO Q24H amoxicillin-pot clavulanate 875-125 mg tablet 1 tab PO Q12H Qty: 14 0RF doxycycline hyclate 100 mg tablet 100 mg PO BID 7 Days Qty: 14 0RF ibuprofen 600 mg tablet 600 mg PO Q8H PRN (Reason: pain) Qty: 20 0RF loratadine 10 mg tablet 10 mg PO DAILY PRN (Reason: allergy symptoms) Print Language: Macedonian Referrals: FORD FIELD [Primary Care Provider] - 1 week
[2024-04-20] MEDS: ONDANSETRON PF 4 MG/2 ML VIAL IV (10:25)
[2024-04-20] MEDS: 0.9 % SODIUM CHLORIDE 1,000 ML 1000 ML IV (10:25)
[2024-04-20 10:36] LABS: Basophils Percent Auto 0.1 % (0.2-2.0); Eosinophils Absolute Auto 0.1 10^3/uL (0.0-0.7); Hematocrit 35.7 % (42.0-54.0); Hemoglobin 12.2 g/dL (14.0-18.0); Immature Granulocytes Abs Auto 0.05 10^3/uL (0.00-0.03); Immature Granulocytes Pct Auto 0.6 % (0.0-0.5); Lymphocytes Absolute Auto 0.8 10^3/uL (1.2-3.8); Lymphocytes Percent Auto 9.9 % (20.5-60.0); Mean Corpuscular HGB Conc 34.2 g/dL (29.9-35.2); Mean Corpuscular Volume 82.1 fL (80.0-94.0); Mean Platelet Volume 9.9 fL (9.5-13.5); Monocytes Absolute Auto 0.5 10^3/uL (0.3-0.8); Monocytes Percent Auto 6.4 % (1.7-12.0); Neutrophils Absolute Auto 6.5 10^3/uL (1.4-6.5); Platelet Count 379 10^3/uL (150-450); Red Blood Count 4.35 10^6/uL (4.70-6.10); Red Cell Distribution Width 14.3 % (11.0-15.0); White Blood Count 7.9 10^3/uL (4.0-11.0)
[2024-04-20 10:57] LABS: Alanine Aminotransferase 206 U/L (16-63); Albumin Globulin Ratio 0.9; Albumin Level 3.3 g/dL (3.4-5.0); Alkaline Phosphatase 60 U/L (46-116); Aspartate Amino Transferase 52 U/L (15-37); Bilirubin Direct 0.1 mg/dL (0.0-0.2); Bilirubin Total 0.4 mg/dL (0.2-1.0); Globulin 3.8 g/dL; Total Protein 7.1 g/dL (6.4-8.2)
--- NOTE | 2024-04-20 11:03 | ECG_ITS ---
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
[2024-04-20 11:37] LABS: Anion Gap 30.7; BUN Creatinine Ratio 8.7; Calcium 9.3 mg/dL (8.5-10.1); Chloride 97 mmol/L (98-107); Estimated GFR (African America 3 (>=60 mL/min/1.73m^2); Estimated GFR (Non-African Ame 3 (>=60 mL/min/1.73m^2); Glucose 82 mg/dL (74-106); Sodium 135 mmol/L (136-145)
[2024-04-20 11:38] LABS: Bilirubin Urine NEGATIVE (NEGATIVE); Blood Urine LARGE (NEGATIVE); Clarity Urine CLEAR (CLEAR); Color Urine LT. YELLOW (YELLOW); Glucose Urine UA NEGATIVE (NEGATIVE); Ketones Urine NEGATIVE (NEGATIVE); Leukocyte Esterase Urine MODERATE (NEGATIVE); Nitrite Urine NEGATIVE (NEGATIVE); Protein Urine TRACE mg/dL (NEG/TRACE); Specific Gravity Urine <=1.005 (1.005-1.025); Urobilinogen Urine 0.2 EU/dL (0.2-1.0)
[2024-04-20 11:39] LABS: Urine Microscopic Indicated YES
[2024-04-20 11:48] LABS: Bacteria Urine SMALL #/HPF (NONE SEEN); Cast Seen? NONE SEEN #/LPF (NONE SEEN); Crystals Seen? None Seen #/HPF (None Seen); Mucus Urine NONE SEEN (NONE SEEN); Squamous Epithelial Cell Urine FEW #/LPF (NONE/RARE); Urine Culture Indicated YES-FRMC
[2024-04-20 11:50] LABS: Amphetamine Screen Urine POSITIVE (NEGATIVE); Barbiturates Screen Urine NEGATIVE (NEGATIVE); Benzodiazepines Screen Urine NEGATIVE (NEGATIVE); Buprenorphine Screen Urine NEGATIVE (NEGATIVE); Cannabinoid Screen Urine NEGATIVE (NEGATIVE); Cocaine Screen Urine NEGATIVE (NEGATIVE); Methadone Screen Urine POSITIVE (NEGATIVE); Methamphetamines Screen Urine NEGATIVE (NEGATIVE); Opiate Screen Urine NEGATIVE (NEGATIVE); Oxycodone Screen Urine NEGATIVE (NEGATIVE); Phencyclidine Screen Urine NEGATIVE (NEGATIVE); Tricyclic Antidepressant Urine NEGATIVE (NEGATIVE)
[2024-04-20 11:52] LABS: Potassium 6.7 mmol/L (3.5-5.1)
[2024-04-20] MEDS: CALCIUM GLUC IN NACL, ISO-OSM 1 GM/50 ML PLAST..BAG IV ×2 (12:03→12:19)
[2024-04-20 12:07] LABS: Ethanol <3 mg/dL
[2024-04-20] MEDS: SODIUM ZIRCONIUM CYCLOSILICATE 10 GM POWD.PACK PO (12:09)
[2024-04-20 12:13] LABS: Troponin I High Sensitivity 7.1 pg/mL (4.0-76.1)
[2024-04-20] MEDS: SODIUM BICARBONATE 150 MEQ in DEXTROSE 5 % IN WATER 1,000 ML IV (12:20)
[2024-04-20] MEDS: DEXTROSE 50 %-WATER 25 GM/50 ML SYRINGE IV (12:21)
[2024-04-20] MEDS: INSULIN REGULAR, HUMAN (100 UNIT/ML) 10 ML MDV IV (12:25)
[2024-04-20 12:30] LABS: Creatine Kinase 742 U/L (39-308); Myoglobin 254 ng/mL (16-96)
[2024-04-20 12:33] LABS: Glucometer 124 mg/dL (74-106)
[2024-04-20] MEDS: SODIUM BICARBONATE 8.4 % 50 MEQ/50 ML SYRINGE 100 MEQ IV (13:22)
--- NOTE | 2024-04-22 16:39 | PC.NURSE ---
Urine culture completed and no growth in two days, no change in treatment.
== END 2024-04-20 15:12 | disposition short-term general hospital (02) ==
PROVIDERS: Emergency Provider Emergency Medicine; PCP Nurse Practitioner Family
DX: N17.9 Acute kidney failure, unspecified (principal); E87.5 Hyperkalemia; Z87.891 Personal history of nicotine dependence; F11.10 Opioid abuse, uncomplicated
CPT/HCPCS: 36415; 74176; 80048; 80076; 80307; 80320; 81001; 82550; 83690; 83874; 84484; 85025; 87086; 93005; 96361; 96365; 96375; 96376; 99285; J0613; J1817; J2405

== ENCOUNTER 2024-05-31 03:57 | Emergency (ER) | payer OTHER, SELFPAY ==
[2024-05-31 04:00] VITALS: BP 115/82; PULSE 95; O2SAT 100
--- OUTSIDE RECORDS SUMMARY | 2024-05-31 04:20 | XMS_ITS | CCD ---
Author Organization [facility] Care Team Providers Care Paint And Table Edger Name Role Phone PROVIDER, UNKNOWN Attending Unavailable PROVIDER, UNKNOWN Admitting Unavailable BARRY DUFFY Primary Care Unavailable DR CHINEDU CESAR Consulting Unavailable [facility], DR YEE Primary Care Unavailable DARIN GARY Attending Unavailable DARIN GARY Admitting Unavailable NO FAMILY, PHYSICIAN Primary Care Provider Unava MD Meera Marley Attending Provider [phone] NO FAMILY, PHYSICIAN Primary Care Provider Unava MD Joshua Segura Emergency Provider [phone] Chay Weber Unavailable [facility], [facility] Primary Care Provider Unav ailable KATIE LOZA Attending Unavailable [facility] Primary [facility]available [facility] Primary Care Unavailable [facility] Primary Care Unavailable HANY FUENTES Attending Unavailable CANELO Boyd Attending Provider NO FAMILY, PHYSICIAN Primary Care Provider Unava MD Chay Roper Attending Provider CANELO Boyd Primary Care Provider MD Stan Richadrs Attending Provider [phone] Monik Leigh MD Attending Provider Asiya Boyd APRN Primary Care Provider Timi Ferguson DO Admit Provider [phone] Timi Ferguson DO Attending Provider [phone] Brian Duncan DO Other Provider Unavailable Ben Bravo MD Other Provider Kenny HART, Chiqui Other Provider Joe SALINAS Mindi Other Provider Unavailable Brian Deal MD Other Provider [phone] Xena WRIGHT-CArielle Other Provider [place]on HART, Halle Garcia Other Provider [phone] Chinedu Escalante MD Other Provider Robert HART, Rosalinda Attending Provider NO FAMILY, PHYSICIAN Primary Care Unavailable Rohrbacher, Asiya Admitting Unavailable Rohrbacher, Asiya Attending Unavailable Semaskiene, Rosalinda Admitting Unavailable Semaskiene, Rosalinda Attending Unavailable Rohrbacher, Asiya Primary Care Unavailable Maurice, Stan Admitting Unavailable Maurice, Stan Attending Unavailable Rohrbacher, Asiya Primary Care Unavailable Lindbloom, Timi Admitting Unavailabl e Semaskiene, Rosalinda Attending Unavailable Rohrbacher, Asiya Primary Care Unavailable Brian Duncan Consulting Unavailable Ben Bravo Consulting Unavailable Mindi Diaz Consulting Unavailable Brian Dela Consulting Unavailable Arielle Mccallum Consulting Unavailable Halle Chowdhury Consulting Unavailable Chinedu Escalante Consulting Unavailabl e NO FAMILY, PHYSICIAN Primary Care Unavailable Asaad, Imad Admitting Unavailable Asaad, Imad Attending Unavailable Lu, Monik A Admitting Unavailable Lu, Monik A Attending Unavailable Monik Leigh MD Attending Provider Rohrbacher SILICA MIXER OPERATOR, Asiya Primary Care Provider Lindbloom DO, Timi Admit Provider [phone] Brian Duncan DO Other Provider Unavailable Ben Bravo MD Other Provider Mindi Diaz LPN Other Provider Unavailable Brian Deal MD Other Provider Arielle Genao Other Provider [phone] [place]on HART, Halel Garcia Other Provider [phone] Chinedu Escalante MD Other Provider [phone] Rosalinda Jones MD Attending Provider Medications Current Medications Medication Drug Class(es) Dates Sig (Normalized) Sig (Original) acetaminophen 325 mg oral tablet (3 sources) Start: 04-27-2024 take 1-3 tablets by mouth every four hours as needed for pain Acetaminophen (Tylenol) 325 mg Tablet Active 650 MG PO Q4H as needed for Pain Scale 1 - 3 or fever April 27, 2024 1:00am apixaban 5 mg oral tablet (6 sources) Factor Xa Inhibitor Start: 04-27-2024 End: 05-01-2024 take 1 tablet by mouth twice daily Apixaban (Eliquis) 5 mg tablet Discontinued 5 MG PO Twice daily April 27, 2024 1:00am May 01, 2024 12:20pm Start: 04-27-2024 take 1 tablet by mouth once Ap ixaban (Eliquis Dvt-Pe Treat 30d Start) 5 mg (74 tabs) tablets,dose pack Active 0 PO .COMPLEX April 27, 2024 1:00am orally per package directions benzonatate 100 mg oral capsule (2 sources) [...] needed Orally Once a day Active doxycycline monohydrate 100 mg oral tablet (10 sources) Tetracycline-clas s Drug Start: 05-01-2024 take 1 tablet by mouth twice daily Doxycycline Monohydrate 100 mg tablet Active 100 MG PO Twice daily 18 12May 01, 2024 1:00am Start: 11-29-2023 End: 04-20-2024 take 1 mg by mouth twice daily Doxycycline Hyclate 100 mg tablet Discontinued MG PO Twice daily November 29, 2023 12:00am April 20, 2024 5:56pm Start: 11-29-2023 take 1 mg by mouth twice daily Doxycycline Hyclate Active MG PO Twice daily November 29, 2023 12:00am methadone hydrochloride 10 mg/ml oral solution (20 sources) Opioid Agonist Start: 11-24-2023 take 10 mg by mouth once daily Methadone 10 mg/mL concentrate Active 220 MG PO Daily November 24, 2023 12:00am Start: 11-24-2023 take 150 mg by mouth once shabana y Methadone Active 150 MG PO Daily November 24, 2023 12:00am Start: 11-24-2023 End: 11-24-2023 take 150 mg by mouth once daily Methadone 10 mg/5 mL s olution Discontinued 150 MG PO Daily November 24, 2023 12:00am November 24, 2023 2:34pm Start: 10-19-2023 End: 11-24-2023 take 1 tablet by mouth once daily Methadone 40 mg tablet,soluble Discontinued 40 MG PO Daily October 19, 2023 12:00am November 24, 2023 2:30pm methylPREDNISolone 4 mg oral tablet (2 sources) Corticosteroid Start: 04-02-2023 End: 04-09-2023 methylPREDNISolone (Medrol Dospak) 4 MG tablets Follow schedule on package instructions 21 tablet 0 04/02/2023 04/09/2023 Active Multivitamin preparation (1 source) take 1 tablet by mouth once daily Multi Vitamin - 1 tablet Orally Once a day Active 24 hr nicotine 0.583 mg/hr transdermal system (3 sources) Cholinergic Nicotinic Agonist Start: 04-27-2024 apply 1 dose transdermal route every twenty-four hours Nicotine 14 mg/24 hr Patch 24 Hour Active 14 MG TRANSDERML Daily April 27, 2024 1:00am predniSONE 20 mg oral tablet (2 sources) Start: 07-28-2023 End: 08-01-2023 take 2 tablets by mouth once daily predniSONE (Deltasone) 20 MG tablet Take 2 tablets (40 mg) by mouth daily for 4 days. 8 tablet 0 07/28/2023 08/01/2023 Active Sennosides (Senna Lax) 8.6 mg Tablet (3 sources) Start: 04-27-2024 take 2 tablets by mouth twice daily as needed for constipation Sennosides (Senna Lax) 8.6 mg Tablet Active 17.2 MG PO Twice daily as needed for constipation April 27, 2024 1:00am Start: 04-27-2024 take 2 tablets by mo [facility] twice daily as needed for constipation Sennosides (Senna Lax) 8.6 mg Tablet Active 17.2 MG PO Twice daily as needed for constipation April 27, 2024 12:00am sevelamer carbonate 800 mg oral tablet (3 sources) Phosphate Binder Start: 04-27-2024 take 2 tablets by mouth once at mealtime Sevelamer Carbonate 800 mg Tablet Active 1600 MG PO 3x/Day with meals April 27, 2024 1:00am Completed/Discontinued Medications Medication Drug Class(es) Dates Sig (Normalized) Sig (Original) amoxicillin 875 mg / clavulanate 125 mg oral tablet (8 sources) Penicillin-class Antibacterial Start: 11-29-2023 End: 04-20-2024 take 1 tablet by mouth twice daily Amoxicillin-Pot Clavulanate 875-125 mg tablet Discontinued TAB PO Twice daily November 29, 2023 12:00am April 20, 2024 5:56pm buprenorphine 8 mg / naloxone 2 mg sublingual film (20 sources) Partial Opioid Agonist, Opioid Antagonist Start: 03-06-2023 End: 03-06-2023 buprenorphine-nalo xone (Suboxone) 8-2 MG per sublingual film 1 Film Start: 02-16-2023 End: 10-19-2023 Buprenorphine-Naloxone 8-2 m g film Discontinued 1 FILM SUBLINGUAL Daily February 16, 2023 1:00am October 19, 2023 9:04am buprenorphine-na loxone (Suboxone) 8-2 MG SL tablet Indications: Opioid Dependence Place 1 tablet under the tongue Once. 0 Active Suboxone Active loratadine 10 mg oral tablet (20 sources) Start: 10-19-2023 End: 04-20-2024 take 1 tablet by mouth once daily Loratadine (Allergy Relief (Loratadine)) 10 mg tablet Discontinued 10 MG PO Daily October 19, 2023 9:31am April 20, 2024 5:56pm saccharomyces boulardii 250 mg oral capsule (9 sources) Start: 11-22-2023 End: 04-20-2024 take 1 capsule by mouth once daily Saccharomyces Boulardii (Digest Probiotic (S.Boulardii)) 250 mg capsule Discontinued 250 MG PO Daily November 22, 2023 12:00am April 20, 2024 5:56pm Start: 11-22-2023 take 1 capsule by mo [facility] twice daily Saccharomyces Boulardii (Digest Probiotic (S.Boulardii)) 250 mg capsule Active 250 MG PO Twice daily November 22, 2023 12:00am sertraline 50 mg oral tablet (20 sources) Serotonin Reuptake Inhibitor Start: 10-19-2023 End: 04-20-2024 take 1 tablet by mouth once daily Sertraline (Zoloft) 50 mg tablet Discontinued 50 MG PO Daily October 19, 2023 9:30am April 20, 2024 5:56pm sertraline (Zolo ft) 100 MG tablet Take by mouth. 0 Active Zoloft Active sulfamethoxazole 800 mg / trimethoprim 160 mg oral tablet (8 sources) Dihydrofolate Reductase Inhibitor Antibacterial, Sulfonamide Antimicrobial Start: 11-29-2023 End: 04-20-2024 take 1 tablet by mouth twice daily Sulfamethoxazole-Trimethoprim (Bactrim Ds) 800-160 mg tablet Discontinued 1 TAB PO Twice daily 18 12November 29, 2023 12:00am April 20, 2024 5:57pm traZODone hydrochloride 50 mg oral tablet (11 sources) Serotonin Reuptake Inhibitor Start: 02-16-2023 End: 10-19-2023 take 1 tablet by mouth once daily at bedtime Trazodone 50 mg tablet Discontinued 50 MG PO Daily at bedtime February 16, 2023 1:00am October 19, 2023 9:05am Problems Active Problems Problem Classification Problem Date Documented Da te Episodic/Chronic Acute and unspecified renal failure (10 sources) Acute renal failure syndrome; Translations: [Acute kidney failure, unspecified] Onset: 04-20-2024 Episodic Anxiety disorders (16 sources) Anxiety; Translations: [Anxiety disorder, unspecified] 10-19-2023 Chronic Conduction disorders (1 source) Long QT syndrome; Translations: [Long QT syndrome] Onset: Chronic Deficiency and other anemia (4 sources) Anemia; Translations: [Anemia, unspecified] 04-20-2024 Episodic Deficiency and other anemia (5 sources) Anemia, unspecified; Translations: [Anemia, unspecified] Onset: 5 04-20-2024 Episodic Fluid and electrolyte disorders (17 sources) Metabolic acidosis; Translations: [Metabolic acidosis] Onset: 5 04-20-2024 Episodic Hepatitis (20 sources) Viral hepatitis C; Translations: [Unspecified viral hepatitis C without hepatic coma] Onset: 5 10-19-2023 Episodic Influenza (2 sources) Influenza due to Influenza A virus; Translations: [Influenza due to other identified influenza virus with other respiratory manifestations] 05-02-2024 Episodic Mood disorders (16 sources) Depressive disorder; Translations: [Depression] 10-19-2023 Chronic Other aftercare (2 sources) Drug therapy finding; Translations: [Encounter for therapeutic drug level monitoring] 03-06-2023 Episodic Other infections; including parasitic (1 source) H/O: liver disease; Translations: [Personal history of other infectious and parasitic diseases] 03-06-2023 Episodic Other liver diseases (12 sources) Enzyme level - finding; Translations: [Elevated transaminase measurement] 02-16-2023 Episodic Other liver diseases (1 source) Elevated liver enzymes level; Translations: [Abnormal levels of other serum enzymes] Episodic Other liver diseases (1 source) Abnormal levels of other serum enzymes Episodic Other nervous system disorders (1 source) Lesion of ulnar nerve, left upper limb; Translations: [LESION ULNAR NERVE LEFT UPPER LIMB] Onset: 2 Chronic Other nervous system disorders (4 sources) Paresthesia of skin; Translations: [PARESTHESIA OF SKIN] Onset: 2 Episodic Other upper respiratory disease (10 sources) Allergic rhinitis; Translations: [Allergic rhinitis, unspecified] 10-19-2023 Chronic Other upper respiratory disease (6 sources) Allergic rhinitis, unspecified; Translations: [Allergic rhinitis, cause unspecified] 10-19-2023 Chronic Phlebitis; thrombophlebitis and thromboembolism (6 sources) Deep venous thrombosis of upper extremity; Translations: [Acute embolism and thrombosis of deep veins of unspecified upper extremity] Onset: 5 04-27-2024 Episodic Pneumonia (except that caused by tuberculosis or sexually transmitted disease) (2 sources) Pneumonia; Translations: [Pneumonia, unspecified organism] 05-02-2024 Episodic Residual codes; unclassified (10 sources) Family history of cancer of colon; Translations: [Family history of malignant neoplasm of digestive organs] 10-19-2023 Episodic Residual codes; unclassified (6 sources) Family history of malignant neoplasm of digestive organs; Translations: [Family history of malignant neoplasm of gastrointestinal tract] 10-19-2023 Episodic Residual codes; unclassified (9 sources) Nicotine-filled electronic cigarette user; Translations: [Tobacco use] 10-19-2023 Episodic Residual codes; unclassified (11 sources) Tobacco use; Translations: [Tobacco use disorder] Onset: 5 10-19-2023 Episodic Screening and history of mental health and substance abuse codes (14 sources) Ex-smoker; Translations: [Personal history of nicotine dependence] 10-19-2023 Episodic Sprains and strains (4 sources) Low back strain; Translations: [Strain of muscle, fascia and tendon of lower back, initial encounter] Onset: 4 07-28-2023 Episodic Substance-related disorders (19 sources) Nicotine dependence, cigarettes, uncomplicated; Translations: [Opioid abuse, uncomplicated] Onset: 2 03-06-2023 Chronic Unclassified (2 sources) Drug / Alcohol Assessment; Translations: [Drug / Alcohol Assessment] Onset: 4 Unclassified (1 source) Acidosis, unspecified; Translations: [Acidosis, unspecified] Onset: 5 Past or Other Problems Problem Classification Problem Date Documented Da te Episodic/Chronic Other aftercare (2 sources) Encounter for therapeutic drug level monitoring; Translations: [Encounter for therapeutic drug level monitoring] Onset: 03-06-2023 Episodic Other aftercare (2 sources) Other meterman (current) drug therapy; Translations: [Other assisted (current) drug therapy] Onset: 03-06-2023 Episodic Other screening for suspected conditions (not mental disorders or infectious disease) (17 sources) Patient encounter status; Translations: [Encounter for screening for malignant neoplasm of colon] Onset: 12-08-2023 10-19-2023 Episodic Skin and subcutaneous tissue infections (17 sources) Abscess; Translations: [Cutaneous abscess, unspecified] Onset: 11-29-2023 11-22-2023 Episodic Viral infection (4 sources) Respiratory syncytial virus infection; Translations: [Other specified viral diseases] Onset: 04-02-2023 04-02-2023 Episodic Results Test Name Value Interpretation Reference Range Facility Basic Metabolic Panelon Anion gap [Moles/Vol] 14.2 mmol/L Normal 6.0-15.0 e [facility] Comment on above: Performed By: #### B MP #### [address] Calcium [Mass/Vol] 10.1 mg/dL Normal 8.6-10.3 [facility] Comment on above: Result Comment: PERF ORMED BY: [place] [address] PATHOLOGIST ON CALL PHARMACY TECHNICIAN HALLE AVALOS M.D. Performed By: #### B MP #### [address] Chloride [Moles/Vol] 102 mmol/L Normal 98-107 [facility] Comment on above: Performed By: #### B MP #### [address] CO2 [Moles/Vol] 28.8 mmol/L Normal 21.0-31.0 [facility] Comment on above: Performed By: #### B MP #### [address] Creatinine [Mass/Vol] 3.06 mg/dL High 0.70-1.30 [facility] Comment on above: Performed By: #### B MP #### [address] Estimated GFR 24.869 mL/Min Normal [facility] Comment on above: Performed By: #### B MP #### [place] [address] [place] Glucose [Mass/Vol] 112 mg/dL High 70-100 [facility] Comment on above: Result Comment: [place] Glucose Reference Range is dependent on time and content of last meal. Glucose of more than 200 mg/dL in a nonstressed, ambulatory subject supports the diagnosis of Diabetes Mellitus. ADA recommended reference range Performed By: #### B MP #### [facility] [address] [id number] [facility] Potassium [Moles/Vol] 5.0 mmol/L Normal 3.5-5.1 [facility] Comment on above: Performed By: #### B MP #### [facility] [address] Sodium [Moles/Vol] 140 mmol/L Normal 136-145 [facility] Comment on above: Performed By: #### B MP #### [facility] [address] [id number] [facility] Urea nitrogen [Mass/Vol] 34 mg/dL High 7-25 [facility] Comment on above: Performed By: #### B MP #### [facility] [address] [id number] [facility] Calcium [Mass/volume] in Ser um or PlasmaOrdered By: Rosalinda Jones on 05-04-2024 Calcium [Mass/Vol] Calcium [Mass/volume ] in Serum or Plasma 8.6-10.3 [facility] Carbon dioxide, total [Moles /volume] in Serum or PlasmaOrdered By: Rosalinda Jones on 05-04-2024 CO2 [Moles/Vol] Carbon dioxide, tota l [Moles/volume] in Serum or Plasma 21.0-31.0 [facility] Chloride [Moles/volume] in S pilar or PlasmaOrdered By: Rosalinda Jones on 05-04-2024 Chloride [Moles/Vol] Chloride [Moles/vol ume] in Serum or Plasma 98-107 [facility] Creatinine [Mass/volume] in Serum or PlasmaOrdered By: Rosalinda Jones on 05-04-2024 Creatinine [Mass/Vol] Creatinine [Mass/v olume] in Serum or Plasma High 0.70-1.30 [facility] Glucose [Mass/volume] in Ser um or PlasmaOrdered By: Rosalinda Jones on 05-04-2024 Glucose [Mass/Vol] Glucose [Mass/volume ] in Serum or Plasma High 70-100 [facility] Comment on above: ADA recommended refe rence rangeRandom Glucose Reference Range is dependent on time and content of last meal. Glucose of more than 200 mg/dL in a nonstressed, ambulatory subject supports the diagnosis of Diabetes Mellitus. No Panel InformationOrdered By: Rosalinda Jones on 05-04-2024 Estimated GFR (CKD-EPI) 24.869 mL/Min [facility] Pharmacy Creatinine Clearance (Chem N/A [facility] Potassium [Moles/volume] in Serum or PlasmaOrdered By: Rosalinda Jones on 05-04-2024 Potassium [Moles/Vol] Potassium [Moles/v olume] in Serum or Plasma 3.5-5.1 [facility] Serum or plasma anion gap de terminationOrdered By: Rosalinda Jones on 05-04-2024 Anion gap [Moles/Vol] Serum or plasma an ion gap determination 6.0-15.0 [facility] Sodium [Moles/volume] in Ser um or PlasmaOrdered By: Rosalinda Jones on 05-04-2024 Sodium [Moles/Vol] Sodium [Moles/volume ] in Serum or Plasma 136-145 [facility] Urea nitrogen [Mass/volume] in Serum or PlasmaOrdered By: Rosalinda Jones on 05-04-2024 Urea nitrogen [Mass/Vol] Urea nitrogen [Mass/volume] in Serum or Plasma High 7-25 [facility] Influenza virus B Ag [Presen ce] in Upper respiratory specimen by Rapid immunoassayon 05-01-2024 FLUBV Ag IA.rapid Ql (Nph) Influenza virus B Ag [Presence] in Upper respiratory specimen by Rapid immunoassay [facility] No Panel Informationon 05-01 Influenza Type A (Rapid) Negative [facility] POC SARS CoV-2 Antigen Negative [facility] Albumin [Mass/volume] in Ser um or Plasma by Bromocresol green (BCG) dye binding methoOrdered By: Sergio Harris on 04-27-2024 Albumin BCG dye [Mass/Vol] Albumin [Mass/volume] in Serum or Plasma by Bromocresol green (BCG) dye binding metho 3.5-5.7 [facility] Calcium [Mass/volume] in Ser um or PlasmaOrdered By: Sergio Harris on 04-27-2024 Calcium [Mass/Vol] Calcium [Mass/volume ] in Serum or Plasma 8.6-10.3 [facility] Carbon dioxide, total [Moles /volume] in Serum or PlasmaOrdered By: Sergio Harris on 04-27-2024 CO2 [Moles/Vol] Carbon dioxide, tota l [Moles/volume] in Serum or Plasma 21.0-31.0 [facility] Chloride [Moles/volume] in S pilar or PlasmaOrdered By: Sergio Harris on 04-27-2024 Chloride [Moles/Vol] Chloride [Moles/vol ume] in Serum or Plasma Low 98-107 [facility] Creatinine [Mass/volume] in Serum or PlasmaOrdered By: Sergio Harris on 04-27-2024 Creatinine [Mass/Vol] Creatinine [Mass/v olume] in Serum or Plasma Invalid Interpretation Code 0.70-1.30 [facility] Comment on above: Delta: 11.54 on 04/02 08/23-3 Glucose [Mass/volume] in Ser um or PlasmaOrdered By: Sergio Harris on 04-27-2024 Glucose [Mass/Vol] Glucose [Mass/volume ] in Serum or Plasma 70-100 [facility] Comment on above: ADA recommended refe rence rangeRandom Glucose Reference Range is dependent on time and content of last meal. Glucose of more than 200 mg/dL in a nonstressed, ambulatory subject supports the diagnosis of Diabetes Mellitus. No Panel InformationOrdered By: Sergio Harris on 04-27-2024 Estimated GFR (CKD-EPI) 5.644 mL/Min [facility] Creatinine Clearance (Chem 8.66 [facility] Pathology study report docum entOrdered By: Magaly Summers on 04-27-2024 Pathology study [facility] Other Phone: Phosphate [Mass/volume] in S pilar or PlasmaOrdered By: Sergio Harris on 04-27-2024 Phosphate [Mass/Vol] Phosphate [Mass/vol ume] in Serum or Plasma High 2.5-4.5 [facility] Potassium [Moles/volume] in Serum or PlasmaOrdered By: Sergio Harris on 04-27-2024 Potassium [Moles/Vol] Potassium [Moles/v olume] in Serum or Plasma 3.5-5.1 [facility] Renal Function Panelon 04-27 Albumin [Mass/Vol] 4.1 g/dL Normal 3.5-5.7 [facility] Comment on above: Performed By: #### H BCAB, HEPACUTE, HBSAB #### [facility] , Anion gap [Moles/Vol] 19.1 mmol/L High 6.0-15.0 Th e [facility] Comment on above: Performed By: #### H BCAB, HEPACUTE, HBSAB #### [facility] , Calcium [Mass/Vol] 10.2 mg/dL Normal 8.6-10.3 [facility] Comment on above: Performed By: #### H BCAB, HEPACUTE, HBSAB #### [facility] , Chloride [Moles/Vol] 94 mmol/L Low 98-107 [facility] Comment on above: Performed By: #### H BCAB, HEPACUTE, HBSAB #### [facility] , CO2 [Moles/Vol] 27.3 mmol/L Normal 21.0-31.0 [facility] Comment on above: Performed By: #### H BCAB, HEPACUTE, HBSAB #### [facility] , Creatinine [Mass/Vol] 10.53 mg/dL Significan t change up 0.70-1.30 [facility] Comment on above: Performed By: #### H BCAB, HEPACUTE, HBSAB #### [facility] , Creatinine Clr Calc Pharmacy 8.66 Normal [facility] Comment on above: Result Comment: PERF ORMED BY: [facility] [place] [address] PATHOLOGIST ON CALL PHARMACY TECHNICIAN HALLE AVALOS M.D. Performed By: #### H BCAB, HEPACUTE, HBSAB #### [facility] , Estimated GFR 5.644 mL/Min Normal [facility] Comment on above: Performed By: #### H BCAB, HEPACUTE, HBSAB #### [facility] , Glucose [Mass/Vol] 79 mg/dL Normal 70-100 [facility] Comment on above: Result Comment: [place] Glucose Reference Range is dependent on time and content of last meal. Glucose of more than 200 mg/dL in a nonstressed, ambulatory subject supports the diagnosis of Diabetes Mellitus. ADA recommended reference range Performed By: #### H BCAB, HEPACUTE, HBSAB #### [facility] , Phosphate [Mass/Vol] 8.9 mg/dL High 2.5-4.5 [facility] Comment on above: Performed By: #### H BCAB, HEPACUTE, HBSAB #### [facility] , Potassium [Moles/Vol] 4.4 mmol/L Normal 3.5-5.1 [facility] Comment on above: Performed By: #### H BCAB, HEPACUTE, HBSAB #### [facility] , Sodium [Moles/Vol] 136 mmol/L Normal 136-145 [facility] Comment on above: Performed By: #### H BCAB, HEPACUTE, HBSAB #### [facility] , Urea nitrogen [Mass/Vol] 67 mg/dL High 7-25 [facility] Comment on above: Performed By: #### H BCAB, HEPACUTE, HBSAB #### [facility] , Serum or plasma anion gap de terminationOrdered By: Sergio Harris on 04-27-2024 Anion gap [Moles/Vol] Serum or plasma an ion gap determination High 6.0-15.0 [facility] Sodium [Moles/volume] in Ser um or PlasmaOrdered By: Sergio Harris on 04-27-2024 Sodium [Moles/Vol] Sodium [Moles/volume ] in Serum or Plasma 136-145 [facility] US venous duplex UE RTon US venous duplex UE RT [facility] [place] [address] Ultrasound Report Signed Patient: Ness Beaver MR#: [id number] : 1980 Acct:[id number] Age/Sex: 44 / M ADM Date: 04/20/24 Loc: Room: [address] [place] [address] Type: ADM IN Attending Dr: Rosalinda Jones MD Ordering Provider: Rosalinda Jones MD Date of Service: 04/25/24 US/US venous duplex UE RT: DVT Copies to: Rosalinda Jones MD Right upper extremity venous duplex examination Indication for study: Painful swollen right arm PROCEDURE: Color-flow duplex scanning is used to interrogate the venous anatomy of the right upper extremity. The right jugular vein could not be examined due to an indwelling dialysis catheter. The right and left subclavian veins and the right axillary vein show good compressibility, color- flow, and augmentation. The left jugular vein is compressible with good color flow. There is acute thrombophlebitis involving the right brachial veins from the mid to distal aspect. In these regions there is loss of color flow and compressibility. The basilic vein and cephalic vein are compressible. US/US venous duplex UE RT IMPRESSION: This examination demonstrates acute thrombophlebitis involving the right paired brachial veins. The axillary vein and subclavian veins are free of thrombus at this time. There is no involvement of the basilic or cephalic veins at this time. Impression dictated by: Brian Deal M.D.04/27/2024 4:12 PM Dictation Location: [id number] Tech: Carmelina Quintero Transcribed By: HALINA 04/27/24 1612 Dictated By: Brian Deal MD 04/27/24 1608 Signed By: 04/27/24 1612 Normal [facility] Urea nitrogen [Mass/volume] in Serum or PlasmaOrdered By: Sergio Harris on 04-27-2024 Urea nitrogen [Mass/Vol] Urea nitrogen [Mass/volume] in Serum or Plasma High 7-25 [facility] Alanine aminotransferase [En zymatic activity/volume] in Serum or PlasmaOrdered By: Rosalinad Jones on 04-26-2024 ALT [Catalytic activity/Vol] Alanine aminotransferase [Enzymatic activity/volume] in Serum or Plasma 7-52 [facility] Alkaline phosphatase [Enzyma tic activity/volume] in Serum or PlasmaOrdered By: Rosalinda Jones on 04-26-2024 ALP [Catalytic activity/Vol] Alkaline phosphatase [Enzymatic activity/volume] in Serum or Plasma 34-104 [facility] Aspartate aminotransferase [ Enzymatic activity/volume] in Serum or PlasmaOrdered By: Rosalinda Jones on 04-26-2024 AST [Catalytic activity/Vol] Aspartate aminotransferase [Enzymatic activity/volume] in Serum or Plasma 13-39 [facility] Basophils Auto (Bld) [#/Vol] Ordered By: Rosalinda Jones on 04-26-2024 Basophils (Bld) [#/Vol] Automated basophil count 0.0-0.2 [facility] Basophils/100 WBC Auto (Bld) Ordered By: Rosalinda Jones on 04-26-2024 Basophils/100 WBC (Bld) Automated basophil % . [facility] Bilirubin.total [Mass/volume ] in Serum or PlasmaOrdered By: Rosalinda Jones on 04-26-2024 Bilirubin [Mass/Vol] Bilirubin.total [Mass/volume] in Serum or Plasma 0.3-1.0 [facility] Complete Blood Count Auto Di ffon 04-26-2024 Basophils (Bld) [#/Vol] 0.0 10*3/uL Normal 0.0-0.2 [facility] Comment on above: Result Comment: PERF ORMED BY: [facility] [address] [place] [address] PATHOLOGIST ON CALL PHARMACY TECHNICIAN HALLE AVALOS M.D. Performed By: #### H BCAB, HEPACUTE, HBSAB #### [facility] , Basophils/100 WBC (Bld) 0.4 % Normal . [facility] Comment on above: Performed By: #### H BCAB, HEPACUTE, HBSAB #### [facility] , Eosinophils (Bld) [#/Vol] 0.0 10*3/uL Normal 0.0-0.45 [facility] Comment on above: Performed By: #### H BCAB, HEPACUTE, HBSAB #### [facility] , Eosinophils/100 WBC (Bld) 0.6 % Normal . [facility] Comment on above: Performed By: #### H BCAB, HEPACUTE, HBSAB #### [facility] , Erythrocyte distribution width (RBC) [Ratio] 14.7 % Normal 12.0-14.8 [facility] Comment on above: Performed By: #### H BCAB, HEPACUTE, HBSAB #### [facility] , Hematocrit (Bld) [Volume fraction] 30.0 % Low 38.8-50.0 [facility] Comment on above: Performed By: #### H BCAB, HEPACUTE, HBSAB #### [facility] , Hemoglobin (Bld) [Mass/Vol] 10.2 g/dL Low 13.0-17.0 [facility] Comment on above: Performed By: #### H BCAB, HEPACUTE, HBSAB #### [facility] , Lymphocytes (Bld) [#/Vol] 0.7 10*3/uL Low 1.00-4.8 [facility] Comment on above: Performed By: #### H BCAB, HEPACUTE, HBSAB #### [facility] , Lymphocytes/100 WBC (Bld) 7.9 % Normal . [facility] Comment on above: Performed By: #### H BCAB, HEPACUTE, HBSAB #### [facility] , MCH (RBC) [Entitic mass] 28.5 pg Normal 27.5-35.2 [facility] Comment on above: Performed By: #### H BCAB, HEPACUTE, HBSAB #### [facility] , MCV (RBC) [Entitic vol] 83.7 fL Normal 83.5-101 [facility] Comment on above: Performed By: #### H BCAB, HEPACUTE, HBSAB #### [facility] , Mean Corpuscular HGB Conc 34.0 g/dL Normal 32.5-35.6 [facility] Comment on above: Performed By: #### H BCAB, HEPACUTE, HBSAB #### [facility] , Monocytes (Bld) [#/Vol] 0.9 10*3/uL High 0.0-0.8 [facility] Comment on above: Performed By: #### H BCAB, HEPACUTE, HBSAB #### [facility] , Monocytes/100 WBC (Bld) 10.6 % Normal . [facility] Comment on above: Performed By: #### H BCAB, HEPACUTE, HBSAB #### [facility] , Neutrophils (Bld) [#/Vol] 6.6 10*3/uL Normal 1.8-7.7 [facility] Comment on above: Performed By: #### H BCAB, HEPACUTE, HBSAB #### [facility] , Neutrophils/100 WBC (Bld) 80.5 % Normal . [facility] Comment on above: Performed By: #### H BCAB, HEPACUTE, HBSAB #### [facility] , NRBC% 0.0 /100{WBC} Normal 0-0.5 [facility] Comment on above: Performed By: #### H BCAB, HEPACUTE, HBSAB #### [facility] , Platelet mean volume (Bld) [Entitic vol] 9.0 fL Normal 6.6-10.1 [facility] Comment on above: Performed By: #### H BCAB, HEPACUTE, HBSAB #### [facility] , Platelets (Bld) [#/Vol] 343 10*3/uL Normal 150-450 [facility] Comment on above: Performed By: #### H BCAB, HEPACUTE, HBSAB #### [facility] , RBC (Bld) [#/Vol] 3.58 10*6/uL Low 3.90-5.60 [facility] Comment on above: Performed By: #### H BCAB, HEPACUTE, HBSAB #### [facility] , WBC (Bld) [#/Vol] 8.2 10*3/uL Normal 4.1-10.5 [facility] Comment on above: Performed By: #### H BCAB, HEPACUTE, HBSAB #### [facility] , Comprehensive Metabolic Pane bean 04-26-2024 Albumin [Mass/Vol] 3.8 g/dL Normal 3.5-5.7 [facility] Comment on above: Performed By: #### H BCAB, HEPACUTE, HBSAB #### [facility] , Albumin/Globulin [Mass ratio] 1.4 {ratio} Normal [facility] Comment on above: Performed By: #### H BCAB, HEPACUTE, HBSAB #### [facility] , ALP [Catalytic activity/Vol] 40 U/L Normal 34-104 [facility] Comment on above: Performed By: #### H BCAB, HEPACUTE, HBSAB #### [facility] , ALT [Catalytic activity/Vol] 30 U/L Normal 7-52 [facility] Comment on above: Performed By: #### H BCAB, HEPACUTE, HBSAB #### [facility] , Anion gap [Moles/Vol] 18.5 mmol/L High 6.0-15.0 [facility] Comment on above: Performed By: #### H BCAB, HEPACUTE, HBSAB #### [facility] , AST [Catalytic activity/Vol] 16 U/L Normal 13-39 [facility] Comment on above: Performed By: #### H BCAB, HEPACUTE, HBSAB #### [facility] , Bilirubin [Mass/Vol] 0.3 mg/dL Normal 0.3-1.0 [facility] Comment on above: Performed By: #### H BCAB, HEPACUTE, HBSAB #### [facility] , Calcium [Mass/Vol] 9.6 mg/dL Normal 8.6-10.3 [facility] Comment on above: Performed By: #### H BCAB, HEPACUTE, HBSAB #### [facility] , Chloride [Moles/Vol] 98 mmol/L Normal 98-107 [facility] Comment on above: Performed By: #### H BCAB, HEPACUTE, HBSAB #### [facility] , CO2 [Moles/Vol] 23.1 mmol/L Normal 21.0-31.0 [facility] Comment on above: Performed By: #### H BCAB, HEPACUTE, HBSAB #### [facility] , Creatinine [Mass/Vol] 11.54 mg/dL Significan t change up 0.70-1.30 [facility] Comment on above: Performed By: #### H BCAB, HEPACUTE, HBSAB #### [facility] , Creatinine Clr Calc Pharmacy 7.90 Normal [facility] Comment on above: Performed By: #### H BCAB, HEPACUTE, HBSAB #### [facility] , Estimated GFR 5.057 mL/Min Normal [facility] Comment on above: Performed By: #### H BCAB, HEPACUTE, HBSAB #### [facility] , Globulin (S) [Mass/Vol] 2.7 g/dL Normal [facility] Comment on above: Performed By: #### H BCAB, HEPACUTE, HBSAB #### [facility] , Glucose [Mass/Vol] 85 mg/dL Normal 70-100 [facility] Comment on above: Result Comment: [place] Glucose Reference Range is dependent on time and content of last meal. Glucose of more than 200 mg/dL in a nonstressed, ambulatory subject supports the diagnosis of Diabetes Mellitus. ADA recommended reference range Performed By: #### H BCAB, HEPACUTE, HBSAB #### [facility] , Potassium [Moles/Vol] 4.6 mmol/L Normal 3.5-5.1 [facility] Comment on above: Performed By: #### H BCAB, HEPACUTE, HBSAB #### [facility] , Protein [Mass/Vol] 6.5 g/dL Normal 6.4-8.9 [facility] Comment on above: Performed By: #### H BCAB, HEPACUTE, HBSAB #### [facility] , Sodium [Moles/Vol] 135 mmol/L Low 136-145 [facility] Comment on above: Performed By: #### H BCAB, HEPACUTE, HBSAB #### [facility] , Urea nitrogen [Mass/Vol] 62 mg/dL High 7-25 [facility] Comment on above: Performed By: #### H BCAB, HEPACUTE, HBSAB #### [facility] , Eosinophils Auto (Bld) [#/Vo l]Ordered By: Rosalinda Jones on 04-26-2024 Eosinophils (Bld) [#/Vol] Automated eosinophil count 0.0-0.45 [facility] Eosinophils/100 WBC Auto (Bl d)Ordered By: Rosalinda Jones on 04-26-2024 Eosinophils/100 WBC (Bld) Automated eosinophil % . [facility] Erythrocyte distribution wid th Auto (RBC) [Ratio]Ordered By: Rosalinda Jones on 04-26-2024 Erythrocyte distribution width (RBC) [Ratio] Erythrocyte distribution width [Ratio] by Automated count 12.0-14.8 [facility] Globulin Calc (S) [Mass/Vol] Ordered By: Rosalinda Jones on 04-26-2024 Globulin (S) [Mass/Vol] Serum globulin measurement by calculation (mass/volume) [facility] Hematocrit Auto (Bld) [Volum e fraction]Ordered By: Rosalinda Jones on 04-26-2024 Hematocrit (Bld) [Volume fraction] Hematocrit [Volume Fraction] of Blood by Automated count Low 38.8-50.0 [facility] Hemoglobin [Mass/volume] in BloodOrdered By: Rosalinda Jones on 04-26-2024 Hemoglobin (Bld) [Mass/Vol] Hemoglobin [Mass/volume] in Blood Low 13.0-17.0 [facility] Leukocytes [#/volume] correc paul for nucleated erythrocytes in Blood by Automated counOrdered By: Rosalinda Jones on 04-26-2024 WBC corrected for nucl RBC Auto (Bld) [#/Vol] Leukocytes [#/volume] corrected for nucleated erythrocytes in Blood by Automated coun 4.1-10.5 [facility] Lymphocytes Auto (Bld) [#/Vo l]Ordered By: Rosalinda Jones on 04-26-2024 Lymphocytes (Bld) [#/Vol] Lymphocytes [#/volume] in Blood by Automated count Low 1.00-4.8 [facility] Lymphocytes/100 WBC Auto (Bl d)Ordered By: Rosalinda Jones on 04-26-2024 Lymphocytes/100 WBC (Bld) Lymphocytes/100 leukocytes in Blood by Automated count . [facility] MCH Auto (RBC) [Entitic mass ]Ordered By: Rosalinda Jones on 04-26-2024 MCH (RBC) [Entitic mass] MCH [Entitic mass] by Automated count 27.5-35.2 [facility] MCHC Auto (RBC) [Mass/Vol]Or dered By: Rosalinda Jones on 04-26-2024 MCHC (RBC) [Mass/Vol] MCHC [Mass/volume] by Automated count 32.5-35.6 [facility] MCV Auto (RBC) [Entitic vol] Ordered By: Rosalinda Jones on 04-26-2024 MCV (RBC) [Entitic vol] MCV [Entitic vol ume] by Automated count 83.5-101 [facility] Monocytes Auto (Bld) [#/Vol] Ordered By: Rosalinda Jones on 04-26-2024 Monocytes (Bld) [#/Vol] Automated blood monocyte count High 0.0-0.8 [facility] Monocytes/100 WBC Auto (Bld) Ordered By: Rosalinda Jones on 04-26-2024 Monocytes/100 WBC (Bld) Automated monocyte % . [facility] Neutrophils Auto (Bld) [#/Vo l]Ordered By: Rosalinda Jones on 04-26-2024 Neutrophils (Bld) [#/Vol] Neutrophils [#/volume] in Blood by Automated count 1.8-7.7 [facility] Neutrophils/100 WBC Auto (Bl d)Ordered By: Rosalinda Jones on 04-26-2024 Neutrophils/100 WBC (Bld) Automated neutrophil % . [facility] Nucleated erythrocytes [Pres ence] in Blood by Automated countOrdered By: Rosalinda Jones on 04-26-2024 Nucleated RBC Auto Ql (Bld) Nucleated erythrocytes [Presence] in Blood by Automated count 0-0.5 [facility] Platelet mean volume Auto (B ld) [Entitic vol]Ordered By: Rosalinda Jones on 04-26-2024 Platelet mean volume (Bld) [Entitic vol] Platelet mean volume [Entitic volume] in Blood by Automated count 6.6-10.1 [facility] Platelets Auto (Bld) [#/Vol] Ordered By: Rosalinda Jones on 04-26-2024 Platelets (Bld) [#/Vol] Platelets [#/vol ume] in Blood by Automated count 150-450 [facility] Protein [Mass/volume] in Ser um or PlasmaOrdered By: Rosalinda Jones on 04-26-2024 Protein [Mass/Vol] Protein [Mass/volume ] in Serum or Plasma 6.4-8.9 [facility] RBC Auto (Bld) [#/Vol]Ordere d By: Rosalinda Jones on 04-26-2024 RBC (Bld) [#/Vol] Erythrocytes [#/volu me] in Blood by Automated count Low 3.90-5.60 [facility] Renal Function Panelon 04-26 Phosphate [Mass/Vol] 8.3 mg/dL High 2.5-4.5 [facility] Comment on above: Result Comment: PERF ORMED BY: [place] [address] PATHOLOGIST ON CALL PHARMACY TECHNICIAN HALLE AVALOS M.D. Performed By: #### H BCAB, HEPACUTE, HBSAB #### [facility] , Serum or plasma albumin/glob ulin mass ratioOrdered By: Rosalinda Jones on 04-26-2024 Albumin/Globulin [Mass ratio] Serum or plasma albumin/globulin mass ratio [facility] US map hemodial access BILon 04-26-2024 US map hemodial access JENNIE [facility] [place] [address] Ultrasound Report Signed with Addenda Patient: Ness Beaver MR#: [id number] : 1980 Acct:[id number] Age/Sex: 44 / M ADM Date: 04/20/24 Loc: Room: [address] [place] [address] Type: ADM IN Attending Dr: Rosalinda Jones MD Ordering Provider: Chinedu Escalante MD Date of Service: 04/25/24 US/US map hemodial access JENNIE: HD access Copies to: MD Rosalinda Lundy MD ADDENDUM 1 The DVT is located in the right brachial vein. Impression dictated by: Chinedu Escalante MD04/27/2024 12:35 PM Dictation Location: [id number] Addendum Dictated By: Chinedu Escalante MD Addendum Signed By: 04/27/241234 Addendum Cosigned By: DD/ TD/TT: 04/27/24 Bilateral upper extremity vein mapping INDICATIONS: Possible need for long-term dialysis access. FINDINGS: Right upper extremity: The basilic vein was of adequate diameter in both the arm and forearm in the right upper extremity. The cephalic vein was not of adequate diameter for fistula creation. The right subclavian and axillary veins are patent. Left upper extremity: The cephalic vein in the left arm is of adequate diameter for fistula creation. Thrombus identified in the distal brachial vein. US/US map hemodial access JENNIE IMPRESSION: Positive study for left brachial vein DVT. Impression dictated by: Chinedu Escalante MD04/26/2024 11:59 AM Dictation Location: [place] [address] Tech: Mulu Geronimo Transcribed By: HALINA 04/26/24 1159 Dictated By: Chinedu Escalante MD 04/26/24 1157 Signed By: 04/26/24 1159 Normal [facility] WBC Auto (Bld) [#/Vol]Ordere d By: Rosalinda Jones on 04-26-2024 WBC (Bld) [#/Vol] Leukocytes [#/volume ] in Blood by Automated count 4.1-10.5 [facility] Appearance of UrineOrdered B y: Rosalinda Jones on 04-25-2024 Appearance (U) Urine appearance [facility] Bacteria [Presence] in Urine by AutomatedOrdered By: Rosalinda Jones on 04-25-2024 Bacteria Auto Ql (U) Bacteria [Presence] in Urine by Automated None Seen [facility] Bilirubin Test strip Ql (U)O rdered By: Rosalinda Jones on 04-25-2024 Bilirubin Ql (U) Bilirubin.total [Presence] in Urine by Test strip Negative [facility] BioFire Not Detectedon 04-25 BioFire Not Detected Not detected Normal Not Detecte [facility] Comment on above: Result Comment: This is a duplicate RP2.1 COVID (PCR) result to be used for statistical tracking purpose only. PERFORMED BY: [facility] [address] [place] [address] PATHOLOGIST ON CALL PHARMACY TECHNICIAN HALLE AVALOS M.D. Performed By: #### H BCAB, HEPACUTE, HBSAB #### [facility] , Blood Cultureon 04-25-2024 Bacteria identified Cx Nom (Bld) WILIAM Greenfield notified AB 1827 NO GROWTH 5 DAYS PERFORMED BY: [facility] [address] [facility] [place] [address] PATHOLOGIST ON CALL PHARMACY TECHNICIAN HALLE AVALOS M.D. Normal [facility] Comment on above: Performed By: #### C UBLD, ESR, CBC, CRP ####[address] [address] [facility] Bacteria identified Cx Nom (Bld) WILIAM Greenfield notified 1826 NO GROWTH 5 DAYS PERFORMED BY: [facility] [address] [facility] [place] [address] PATHOLOGIST ON CALL PHARMACY TECHNICIAN HALLE AVALOS M.D. Normal [facility] Comment on above: Performed By: #### C UBLD, ESR, CBC, CRP ####[address] [address] [facility] C reactive protein [Mass/vol ume] in Serum or PlasmaOrdered By: Rosalinda Jones on 04-25-2024 CRP [Mass/Vol] C reactive protein [Mass/volume] in Serum or Plasma High 0.0-0.5 [facility] C-Reactive Proteinon 025 C-Reactive Protein 8.3 mg/dL High 0.0-0.5 [facility] Comment on above: Order Comment: WILIAM beard notified 1826 Result Comment: PERF ORMED BY: [facility] [address] [place] [address] PATHOLOGIST ON CALL PHARMACY TECHNICIAN HALLE AVALOS M.D. Performed By: #### C UBLD, ESR, CBC, CRP ####[address] [address] [facility] COVID-19 Detected/Not Detect edOrdered By: Rosalinda Jones on 04-25-2024 SARS-CoV-2 (COVID-19) RNA MONTSERRAT+non-probe Ql (Nph) Not detected Not Detecte [facility] Comment on above: This is a duplicate RP2.1 COVID (PCR) result to be used for statistical tracking purpose only. CT guided biopsyon CT guided biopsy [facility] Main [place] [address] [place] [address] CT Scan Report Signed Patient: Ness Beaver MR#: [id number] : 1980 Acct:[id number] Age/Sex: 44 / M ADM Date: 04/20/24 Loc: Room: [address] [place] [address] Type: ADM IN Attending Dr: Rosalinda Jones MD Copies to: MD Rosalinda Gonzalez MD Ordering Provider: Ben Bravo MD Date of Service: 04/25/24 CT/CT guided biopsy: JASMINA CT GUIDED kidneyBIOPSY: CLINICAL HISTORY: Acute kidney injury COMPARISON : none FINDINGS: After questions were answered, informed consent was obtained. The patient was placed proneon the CT table and the right kidney was selected for biopsy. The skin over the right kidneywas prepped and draped in normal sterile fashion. 1% lidocaine was utilized for local anesthesia. Utilizing CT guidance, an 18 Gauge Biopince coaxial system was advanced into the inferior pole right kidney and 2 core biopsies were obtained. After the sample was deemed adequate by pathology, the needle was withdrawn. Hemostasis was achieved. Bandage was applied. The patient tolerated procedure well without immediate complication. Please note that the patient was monitored throughout the procedure by nursing personnel. This CT exam was performed using one or more following dose reduction techniques: Automated exposure control, adjustment of the mA and/or kV according to patient size, or use of iterative reconstruction technique. CT/CT guided biopsy IMPRESSION: Successful CT-guided kidney biopsy. Impression dictated by: Luis Eduardo Villasenor Jr., D.OTatyana04/25/2024 2:28 PM Dictation Location: [place] [address] Transcribed By: [facility] 04/25/24 1428 Dictated By: Luis Eduardo Villasenor Jr, DO 04/25/24 1427 Signed By: 04/25/24 142 Normal [facility] Coagulation Profileon 2024 aPTT Coag (Bld) [Time] 30.0 s Normal 25.1-36.5 [facility] [facility] Comment on above: Result Comment: A he matocrit value greater than 55% may lead to inaccurate results in coagulation testing. Patients having hematocrit values >55% require a special collection tube for coagulation studies. Please contact the laboratory at [phone] for redraw instructions. PERFORMED BY: [facility] [address] [place] [address] PATHOLOGIST ON CALL PHARMACY TECHNICIAN HALLE AVALOS M.D. Performed By: #### P P ####[place] [id number] [place] [id number] [facility] INR Coag (PPP) [Relative time] 1.2 {INR} Normal [facility] Comment on above: Result Comment: INR Therapeutic Range A) Pre- and Peroperative OAT started two weeks before surgery. NOT HIP SURGERY: 1.5 - 2.5 HIP SURGERY: 2 - 3 B) Primary and secondary prevention of venous THROMBOSIS: 2 - 3 C) Active venous thrombosis, pulmonary embolism and prevention of recurrent venous thrombosis: 2 - 3 D) Prevention of arterial thromboembolism including patients with mechanical heart valves: 3 - 4.5 Performed By: #### P P ####[place] [id number] [facility] PT Coag (PPP) [Time] 13.9 s High 9.0-12.9 [facility] Comment on above: Result Comment: A he matocrit value greater than 55% may lead to inaccurate results in coagulation testing. Patients having hematocrit values >55% require a special collection tube for coagulation studies. Please contact the laboratory at [phone] for redraw instructions. Performed By: #### P P ####[place] [id number] [facility] Color Auto (U)Ordered By: Kj Jones on 04-25-2024 Color (U) Color of Urine by Auto Yellow [facility] Complete Blood Count Auto Di ffon 04-25-2024 Basophils (Bld) [#/Vol] 0.0 10*3/uL Normal 0.0-0.2 [facility] Comment on above: Order Comment: WILIAM beard notified AB 1827 Performed By: #### C UBLD, ESR, CBC, CRP ####[place] [id number] [facility] Basophils/100 WBC (Bld) 0.2 % Normal . T johan [facility] Comment on above: Order Comment: WILIAM beard notified AB 1827 Performed By: #### C UBLD, ESR, CBC, CRP ####[address] Eosinophils (Bld) [#/Vol] 0.0 10*3/uL Normal 0.0-0.45 [facility] Comment on above: Order Comment: WILIAM beard notified AB 1827 Performed By: #### C UBLD, ESR, CBC, CRP ####[address] Eosinophils/100 WBC (Bld) 0.4 % Normal . [facility] Comment on above: Order Comment: WILIAM beard notified AB 1827 Performed By: #### C UBLD, ESR, CBC, CRP ####[address] Erythrocyte distribution width (RBC) [Ratio] 14.9 % High 12.0-14.8 [facility] Comment on above: Order Comment: WILIAM beard notified AB 1827 Performed By: #### C UBLD, ESR, CBC, CRP ####[address] Hematocrit (Bld) [Volume fraction] 31.8 % Low 38.8-50.0 [facility] Comment on above: Order Comment: WILIAM beard notified AB 1827 Performed By: #### C UBLD, ESR, CBC, CRP ####[address] Hemoglobin (Bld) [Mass/Vol] 10.8 g/dL Low 13.0-17.0 [facility] Comment on above: Order Comment: WILIAM beard notified AB 1827 Performed By: #### C UBLD, ESR, CBC, CRP ####[place] [id number] [facility] Lymphocytes (Bld) [#/Vol] 0.7 10*3/uL Low 1.00-4.8 [facility] Comment on above: Order Comment: WILIAM beard notified AB 1827 Performed By: #### C UBLD, ESR, CBC, CRP ####[address] Lymphocytes/100 WBC (Bld) 10.1 % Normal . [facility] Comment on above: Order Comment: WILIAM beard notified AB 1827 Performed By: #### C UBLD, ESR, CBC, CRP ####[address] MCH (RBC) [Entitic mass] 28.4 pg Normal 27.5-35.2 [facility] Comment on above: Order Comment: WILIAM beard notified AB 1827 Performed By: #### C UBLD, ESR, CBC, CRP ####[address] MCV (RBC) [Entitic vol] 83.4 fL Low 83.5-101 T [facility] Comment on above: Order Comment: WILIAM beard notified AB 1827 Performed By: #### C UBLD, ESR, CBC, CRP ####[address] Mean Corpuscular HGB Conc 34.1 g/dL Normal 32.5-35.6 [facility] Comment on above: Order Comment: WILIAM beard notified AB 1827 Performed By: #### C UBLD, ESR, CBC, CRP ####[address] Monocytes (Bld) [#/Vol] 0.6 10*3/uL Normal 0.0-0.8 [facility] Comment on above: Order Comment: WILIAM beard notified AB 1827 Performed By: #### C UBLD, ESR, CBC, CRP ####[address] Monocytes/100 WBC (Bld) 8.1 % Normal . [facility] Comment on above: Order Comment: WILIAM beard notified AB 1827 Performed By: #### C UBLD, ESR, CBC, CRP ####[address] Neutrophils (Bld) [#/Vol] 5.6 10*3/uL Normal 1.8-7.7 [facility] Comment on above: Order Comment: WILIAM beard notified AB 1827 Performed By: #### C UBLD, ESR, CBC, CRP ####[place] [id number] [facility] Neutrophils/100 WBC (Bld) 81.2 % Normal . [facility] Comment on above: Order Comment: WILIAM beard notified AB 1827 Performed By: #### C UBLD, ESR, CBC, CRP ####[address] NRBC% 0.0 /100{WBC} Normal 0-0.5 [facility] Comment on above: Order Comment: WILIAM beard notified AB 1827 Performed By: #### C UBLD, ESR, CBC, CRP ####[address] Platelet mean volume (Bld) [Entitic vol] 8.9 fL Normal 6.6-10.1 [facility] Comment on above: Order Comment: WILIAM beard notified AB 1827 Performed By: #### C UBLD, ESR, CBC, CRP ####[place] [id number] [facility] Platelets (Bld) [#/Vol] 365 10*3/uL Normal 150-450 [facility] Comment on above: Order Comment: WILIAM beard notified AB 1827 Performed By: #### C UBLD, ESR, CBC, CRP ####[place] [id number] [facility] RBC (Bld) [#/Vol] 3.82 10*6/uL Low 3.90-5.60 [facility] Comment on above: Order Comment: WILIAM beard notified AB 1827 Performed By: #### C UBLD, ESR, CBC, CRP ####[place] [id number] [facility] WBC (Bld) [#/Vol] 6.9 10*3/uL Normal 4.1-10.5 [facility] Comment on above: Order Comment: WILIAM beard notified AB 1827 Performed By: #### C UBLD, ESR, CBC, CRP ####[facility] Dipstick and Microscopicon 0 04-25-2024 Bacteria,Urine None Seen Normal None Seen [facility] Comment on above: Order Comment: Name Collection Type:: Clean-Voided Midstream Performed By: #### A ERC, GS #### [address] Hyaline Casts,Urine None Normal 0-8 [facility] Comment on above: Order Comment: Name Collection Type:: Clean-Voided Midstream Result Comment: PERF ORMED BY: [place] [address] PATHOLOGIST ON CALL PHARMACY TECHNICIAN HALLE AVALOS M.D. Performed By: #### A ERC, GS #### [address] RBC,Urine 10-19 High 0-4 [facility] Comment on above: Order Comment: Name Collection Type:: Clean-Voided Midstream Performed By: #### A ERC, GS #### [place] [address] [place] WBC,Urine 20-49 High 0-4 [facility] Comment on above: Order Comment: Name Collection Type:: Clean-Voided Midstream Performed By: #### A ERC, GS #### [address] Epithelial cells.squamous [# /area] in Urine sediment by Automated countOrdered By: Rosalinda Jones on 04-25-2024 Epithelial cells.squamous Auto (Urine sed) [#/Area] Epithelial cells.squamous [#/area] in Urine sediment by Automated count [facility] Erythrocyte Sedimentation Ra marie 04-25-2024 ESR (Bld) [Velocity] 51 mm/h High 0-14 [facility] Comment on above: Order Comment: WILIAM beard notified AB 1826 Result Comment: PERF ORMED BY: [facility] [address] [place] [address] PATHOLOGIST ON CALL PHARMACY TECHNICIAN HALLE AVALOS M.D. Performed By: #### C UBLD, ESR, CBC, CRP ####[facility] [id number] [place] [id number] [facility] Erythrocyte sedimentation ra te by Photometric methodOrdered By: Rosalinda Jones on 04-25-2024 ESR Photometric method (Bld) [Velocity] Erythrocyte sedimentation rate by Photometric method High 0-14 [facility] Erythrocytes [#/area] in Uri ne sediment by Automated countOrdered By: Rosalinda Jones on 04-25-2024 RBC Auto (Urine sed) [#/Area] Erythrocytes [#/area] in Urine sediment by Automated count High 0-4 [facility] Glucose [Mass/volume] in Uri ne by Test stripOrdered By: Rosalinda Jones on 04-25-2024 Glucose Test strip (U) [Mass/Vol] Glucose [Mass/volume] in Urine by Test strip Normal [facility] Hemoglobin Test strip Ql (U) Ordered By: Rosalinda Jones on 04-25-2024 Hemoglobin Ql (U) Hemoglobin [Presence ] in Urine by Test strip High Negative [facility] Hyaline casts [#/area] in Ur ine sediment by Automated countOrdered By: Rosalinda Jones on 04-25-2024 Hyaline casts Auto (Urine sed) [#/Area] Hyaline casts [#/area] in Urine sediment by Automated count 0-8 [facility] INR in Platelet poor plasma by Coagulation assayOrdered By: Timi Ferguson on 04-25-2024 INR Coag (PPP) [Relative time] INR in Platelet poor plasma by Coagulation assay [facility] Comment on above: INR Therapeutic Rang e A) Pre- and Peroperative OAT started two weeks before surgery. NOT HIP SURGERY: 1.5 - 2.5 HIP SURGERY: 2 - 3B) Primary and secondary prevention of venous THROMBOSIS: 2 - 3C) Active venous thrombosis, pulmonary embolismand prevention of recurrent venous thrombosis: 2 - 3D) Prevention of arterial thromboembolismincluding patients with mechanical heart valves: 3 - 4.5 Ketones Test strip Ql (U)Ord ered By: Rosalinda Jones on 04-25-2024 Ketones Ql (U) Ketones [Presence] i n Urine by Test strip Negative [facility] Bean 04-25-2024 L ---- Specimen: [id number] Received: 04/25/24 Status: VANDANA Shirley Num: [id number] Spec Type: Surgical Subm Dr: Luis Eduardo Villasenor Jr, Tissues: A Gross Only (RANDOM KIDNEY BIOPSY) Procedures: Level 1 Gross Age/ Patient Sex Location Account Attending Physician Ness Beaver/Clement 4P [id number] Rosalinda Jones MD SPEC NUM: [id number] RECD: 04/25/24 STATUS: VANDANA DAVIS NUM: [id number] MICHEAL: 04/25/240 [facility] DR: Luis Eduardo Villasenor Jr, DO ENTERED: 04/25/[address] [facility] [address]: Ben Bravo MD SPEC TYPE: Surgical DEPT: S ENTERED BY: [id number] RECV BY: [id number] ORDERED: Level 1 Gross ORDERED: Level 1 Gross Pathological Diagnosis Right kidney tissue, needle core biopsies: Severe acute tubular injury with myoglobin casts. Mild acute interstitial nephritis. (See comment). Comment: The pathologic evaluation was performed at [facility], in [facility]. Please see the attached report for further details. Clinical Information Acute kidney injury Gross Description Part A is received in a container of formalin and a container of Edwin solution labeled with the patients name, date of , and right kidney tissue are 2 pale-ochoa, delicate, 0.5 and 0.8 cm needle core biopsy segments. The specimen is sent to [facility] for analysis. GROSS ONLY-JG Microscopic Description See attached report. Specimen: [id number] Received: 04/25/24 Status: VANDANA Shirley Num: [id number] Spec Type: Surgical Subm Dr: Luis Eduardo Villasenor, , DO Tissues: A Gross Only (RANDOM KIDNEY BIOPSY) Procedures: Level 1 Gross Patient: Ness Beaver [id number] (Continued) Signed (signature on file) Magaly Summers MD 04/27/24 1500 Normal [facility] Laboratory - Microbiology an d Antimicrobial susceptibilityOrdered By: Rosalinda Jones on 04-25-2024 Bacteria identified Cx Nom (Bld) NO GROWTH 5 DAYS [facility] Bacteria identified Cx Nom (Bld) NO GROWTH 5 DAYS [facility] Bacteria identified Cx Nom (Bld) NO GROWTH 5 DAYS [facility] Bacteria identified Cx Nom (Bld) NO GROWTH 5 DAYS [facility] Leukocyte esterase [Presence ] in Urine by Test stripOrdered By: Rosalinda Jones on 04-25-2024 Leukocyte esterase Test strip Ql (U) Leukocyte esterase [Presence] in Urine by Test strip High Negative [facility] Leukocytes [#/area] in Urine sediment by Automated countOrdered By: Rosalinda Jones on 04-25-2024 WBC Auto (Urine sed) [#/Area] Leukocytes [#/area] in Urine sediment by Automated count High 0-4 [facility] Nitrite Test strip Ql (U)Ord ered By: Rosalinda Jones on 04-25-2024 Nitrite Ql (U) Nitrite [Presence] i n Urine by Test strip Negative [facility] Protein Test strip (U) [Mass /Vol]Ordered By: Rosalinda Jones on 04-25-2024 Protein (U) [Mass/Vol] Protein [Mass/vol ume] in Urine by Test strip Negative [facility] Prothrombin time (PT)Ordered By: Timi Ferguson on 04-25-2024 PT Coag (PPP) [Time] Prothrombin time (PT) High 9.0- 12.9 [facility] Comment on above: A hematocrit value g reater than 55% may lead to inaccurate results in coagulation testing. Patients having hematocrit values >55% require a special collection tube for coagulation studies. Please contact the laboratory at [phone] for redraw instructions. Renal Function Panelon 04-25 Albumin [Mass/Vol] 3.7 g/dL Normal 3.5-5.7 [facility] Comment on above: Performed By: #### R ENAL ####[address] Anion gap [Moles/Vol] 18.9 mmol/L High 6.0-15.0 [facility] Comment on above: Performed By: #### R ENAL ####[place] [id number] [facility] Calcium [Mass/Vol] 9.5 mg/dL Normal 8.6-10.3 [facility] Comment on above: Performed By: #### R ENAL ####[place] [id number] [facility] Chloride [Moles/Vol] 99 mmol/L Normal 98-107 [facility] Comment on above: Performed By: #### R ENAL ####[place] [id number] [facility] CO2 [Moles/Vol] 21.5 mmol/L Normal 21.0-31.0 [facility] Comment on above: Performed By: #### R ENAL ####[place] [id number] [facility] Creatinine [Mass/Vol] 11.00 mg/dL Significan t change up 0.70-1.30 [facility] Comment on above: Performed By: #### R ENAL ####[address] Creatinine Clr Calc Pharmacy 8.29 Normal [facility] Comment on above: Result Comment: PERF ORMED BY: [facility] [address] [place] [address] PATHOLOGIST ON CALL PHARMACY TECHNICIAN HALLE AVALOS M.D. Performed By: #### R ENAL ####[address] Estimated GFR 5.356 mL/Min Normal [facility] Comment on above: Performed By: #### R ENAL ####[address] Glucose [Mass/Vol] 89 mg/dL Normal 70-100 [facility] Comment on above: Result Comment: [facility] Glucose Reference Range is dependent on time and content of last meal. Glucose of more than 200 mg/dL in a nonstressed, ambulatory subject supports the diagnosis of Diabetes Mellitus. ADA recommended reference range Performed By: #### R ENAL ####[address] Phosphate [Mass/Vol] 7.1 mg/dL High 2.5-4.5 [facility] Comment on above: Performed By: #### R ENAL ####[address] Potassium [Moles/Vol] 4.4 mmol/L Normal 3.5-5.1 [facility] Comment on above: Performed By: #### R ENAL ####[address] Sodium [Moles/Vol] 135 mmol/L Low 136-145 [facility] Comment on above: Performed By: #### R ENAL ####[address] Urea nitrogen [Mass/Vol] 55 mg/dL High 7 [facility] Comment on above: Performed By: #### R ENAL ####[facility] [place] [address] [facility] Respiratory (Upper) Panel, P CRon 04-25-2024 Respiratory (Upper) Panel, PCR Adenovirus Not detected Bordetella parapertussis Not detected Chlamydia pneumoniae Not detected Coronavirus 229E Not detected Coronavirus HKU1 Not detected Coronavirus NL63 Not detected Coronavirus OC43 Not detected Influenza A Influenza A H1-2009 Detected Influenza B Not detected Human Metapneumovirus Not detected Mycoplasma pneumoniae Not detected Parainfluenza Virus 1 Not detected Parainfluenza Virus 2 Not detected Parainfluenza Virus 3 Not detected Parainfluenza Virus 4 Not detected Bordetella pertussis-ptxP Not detected Human Rhino/Enterovirus Not detected Resp. Syncytial Virus Not detected COVID-19 Detected/Not Detected Not detected Blank Space ------ FLUA TEST INCLUDES Influenza A tests for the following clinically FLUA TEST INCLUDES significant subtypes: FLUA TEST INCLUDES - Influenza A FLUA TEST INCLUDES - Influenza A H1 FLUA TEST INCLUDES - Influenza A H1 2009 FLUA TEST INCLUDES - Influenza A H3 Blank Space ------ RP2 FLU DISCLAIMER Recent administration of nasal influenza vaccines RP2 FLU DISCLAIMER may cause positive FLU results but would not RP2 FLU DISCLAIMER represent infection by those agents. PERFORMED BY: [place] [address] [place] [address] PATHOLOGIST ON CALL PHARMACY TECHNICIAN HALLE Roy [facility] Comment on above: Performed By: #### H BCAB, HEPACUTE, HBSAB #### [facility] , Respiratory pathogens DNA an d RNA panel - Nasopharynx by MONTSERRAT with non-probe detectionOrdered By: Rosalinda Jones on 04-25-2024 Respiratory pathogens DNA and RNA panel MONTSERRAT+non-probe (Nph) Respiratory pathogens DNA and RNA panel - Nasopharynx by MONTSERRAT with non-probe detection [facility] Respiratory pathogens DNA and RNA panel MONTSERRAT+non-probe (Nph) Respiratory pathogens DNA and RNA panel - Nasopharynx by MONTSERRAT with non-probe detection [facility] Specific gravity Test strip (U) [Rel density]Ordered By: Rosalinda Jones on 04-25-2024 Specific gravity (U) [Rel density] Specific gravity of Urine by Test strip 1.001-1.030 [facility] Urinalysison 04-25-2024 Appearance (U) Clear Normal Clear [facility] Comment on above: Order Comment: Name Collection Type:: Clean-Voided Midstream Performed By: #### A ERC, GS #### [facility] [address] [place] [address] [place] Bilirubin,Urine Negative Normal Negative [facility] Comment on above: Order Comment: Name Collection Type:: Clean-Voided Midstream Performed By: #### A ERC, GS #### [facility] [address] [place] [id number] [place] Color (U) Colorless Normal Yellow [facility] Comment on above: Order Comment: Name Collection Type:: Clean-Voided Midstream Performed By: #### A ERC, GS #### [facility] [address] [place] [address] [place] Glucose Ql (U) Normal Normal Normal [facility] Comment on above: Order Comment: Name Collection Type:: Clean-Voided Midstream Performed By: #### A ERC, GS #### [facility] [address] [place] [address] [place] Ketones Ql (U) Negative Normal Negative [facility] Comment on above: Order Comment: Name Collection Type:: Clean-Voided Midstream Performed By: #### A ERC, GS #### [facility] [address] [place] [id number] [place] Leukocyte esterase Test strip Ql (U) 3+ High Negative [facility] Comment on above: Order Comment: Name Collection Type:: Clean-Voided Midstream Performed By: #### A ERC, GS #### [place] [address] [place] Nitrite,Urine Negative Normal Negative [facility] Comment on above: Order Comment: Name Collection Type:: Clean-Voided Midstream Performed By: #### A ERC, GS #### [place] [address] [place] Occult Blood,Urine 2+ High Negative [facility] Comment on above: Order Comment: Name Collection Type:: Clean-Voided Midstream Result Comment: PERF ORMED BY: [place] [address] PATHOLOGIST ON CALL PHARMACY TECHNICIAN HALLE AVALOS M.D. Performed By: #### A ERC, GS #### [place] [address] [place] pH (U) 6.0 [pH] Normal 5.0-9.0 [facility] Comment on above: Order Comment: Name Collection Type:: Clean-Voided Midstream Performed By: #### A ERC, GS #### [place] [address] [place] Protein,Urine Negative Normal Negative [facility] Comment on above: Order Comment: Name Collection Type:: Clean-Voided Midstream Performed By: #### A ERC, GS #### [place] [address] [place] Specificy [place],Urine 1.009 Normal 1.001-1.030 [facility] Comment on above: Order Comment: Name Collection Type:: Clean-Voided Midstream Performed By: #### A ERC, GS #### [place] [address] [place] Urobilinogen,Urine Normal Normal Normal [facility] Comment on above: Order Comment: Name Collection Type:: Clean-Voided Midstream Performed By: #### A ERC, GS #### [place] [id number] [place] Urine Cultureon 04-25-2024 Bacteria identified Cx Nom (U) <9,000 colonies/ml mixed bacterial skin contaminants 2 Days PERFORMED BY: [place] [address] PATHOLOGIST ON CALL PHARMACY TECHNICIAN HALLE AVALOS M.D. Normal [facility] Comment on above: Performed By: #### C UU, UA, ADDONUAPLUS ####[facility] [id number] Urine cultureOrdered By: Brandee Jones on 04-25-2024 Bacteria identified Cx Nom (U) Urine culture [facility] Bacteria identified Cx Nom (U) Urine culture [facility] Urobilinogen Test strip (U) [Mass/Vol]Ordered By: Rosalinda Jones on 04-25-2024 Urobilinogen (U) [Mass/Vol] Urobilinogen [Mass/volume] in Urine by Test strip Normal [facility] X-ray reportOrdered By: Connor Zayas on 04-25-2024 Study report [facility] [place] [address] XRay Report Signed Patient: Ness Beaver MR#: [id number] : 1980 Acct:[id number] Age/Sex: 44 / M ADM Date: 5 Loc: Room: [address] [place] [address] Type: ADM IN Attending Dr: Rosalinda Jones MD Copies to: Rosalinda Jones MD~ Ordering Provider: Rosalinda Jones MD Date of Service: 04/25/24 XR/XR abdomen min 2V: constipation ([id number]) XR/XR chest 2V*: fever PA AND LATERAL CHEST AND UPRIGHT AND SUPINE VIEWS OF THE ABDOMEN.: 4 views total CLINICAL HISTORY: Presented acute renal failure, constipation, new onset fever COMPARISON: 04/20/2024 FINDINGS: Cardiac silhouette is borderline. Right basilar opacity effusion. Left lung bases are clear. No pneumothorax. No free air within the upper abdomen. Moderate retained stool burden. Nonspecific bowel gas pattern. Dextrocurvature lumbar spine. Levocurvature lower thoracic spine XR/XR chest 2V* IMPRESSION: Right basilar opacity and effusion. Moderate retained stool. No bowel obstruction. No free air. Impression dictated by: Andrea Zayas M.D.04/25/2024 7:27 PM Dictation Location: RADIO-PC-29 Transcribed By: HALINA 04/25/241926 Dictated By: Andrea Zayas MD 04/25/241924 Signed By: 04/25/241926 [facility] Work Phone: XR abdomen min 2Von 04-25-19 XR abdomen min 2V [facility] Main [place] [address] [place] [address] XRay Report Signed Patient: Ness Beaver MR#: [id number] : 1980 Acct:[id number] Age/Sex: 44 / M ADM Date: 04/20/24 Loc: Room: [address] [place] [address] Type: ADM IN Attending Dr: Rosalinda Jones MD Copies to: Rosalinda Jones MD Ordering Provider: Rosalinda Jones MD Date of Service: 04/25/24 XR/XR abdomen min 2V: constipation ([id number]) XR/XR chest 2V*: fever PA AND LATERAL CHEST AND UPRIGHT AND SUPINE VIEWS OF THE ABDOMEN.: 4 views total CLINICAL HISTORY: Presented acute renal failure, constipation, new onset fever COMPARISON: 04/20/2024 FINDINGS: Cardiac silhouette is borderline. Right basilar opacity effusion. Left lung bases are clear. No pneumothorax. No free air within the upper abdomen. Moderate retained stool burden. Nonspecific bowel gas pattern. Dextrocurvature lumbar spine. Levocurvature lower thoracic spine XR/XR chest 2V* IMPRESSION: Right basilar opacity and effusion. Moderate retained stool. No bowel obstruction. No free air. Impression dictated by: Andrea Zayas M.D.04/25/2024 7:27 PM Dictation Location: RADIO-PC-29 Transcribed By: HALINA 04/25/241926 Dictated By: Andrea Zayas MD 04/25/241924 Signed By: 02/25/25 1927 Normal [facility] aPTT in Platelet poor plasma by Coagulation assayOrdered By: Timi Ferguson on 04-25-2024 aPTT Coag (PPP) [Time] Activated partial thromboplastin time (aPTT) in platelet poor plasma by coagulation a 25.1-36.5 [facility] Comment on above: A hematocrit value g reater than 55% may lead to inaccurate results in coagulation testing. Patients having hematocrit values >55% require a special collection tube for coagulation studies. Please contact the laboratory at [phone] for redraw instructions. pH Test strip (U)Ordered By: Rosalinda Jones on 04-25-2024 pH (U) pH of Urine by Test strip 5.0-9.0 [facility] Renal Function Panelon 04-24 Albumin [Mass/Vol] 3.6 g/dL Normal 3.5-5.7 [facility] Comment on above: Result Comment: PERF ORMED BY: [facility] [address] [place] [id number] PATHOLOGIST ON CALL PHARMACY TECHNICIAN HALLE AVALOS M.D. Performed By: #### R ENAL ####[place] [id number] [facility] Anion gap [Moles/Vol] 15.5 mmol/L High 6.0-15.0 [facility] Comment on above: Performed By: #### R ENAL ####[place] [id number] [facility] Calcium [Mass/Vol] 9.3 mg/dL Normal 8.6-10.3 [facility] Comment on above: Performed By: #### R ENAL ####[address] [address] [facility] Chloride [Moles/Vol] 100 mmol/L Normal 98-107 [facility] Comment on above: Performed By: #### R ENAL ####[place] [id number] [facility] CO2 [Moles/Vol] 24.3 mmol/L Normal 21.0-31.0 [facility] Comment on above: Performed By: #### R ENAL ####[address] Creatinine [Mass/Vol] 10.21 mg/dL Significan t change up 0.70-1.30 [facility] Comment on above: Performed By: #### R ENAL ####[place] [id number] [facility] Estimated GFR 5.857 mL/Min Normal [facility] Comment on above: Performed By: #### R ENAL ####[place] [id number] [facility] Glucose [Mass/Vol] 102 mg/dL High 70-100 [facility] Comment on above: Result Comment: [place] Glucose Reference Range is dependent on time and content of last meal. Glucose of more than 200 mg/dL in a nonstressed, ambulatory subject supports the diagnosis of Diabetes Mellitus. ADA recommended reference range Performed By: #### R ENAL ####[address] Phosphate [Mass/Vol] 6.7 mg/dL High 2.5-4.5 [facility] Comment on above: Performed By: #### R ENAL ####[address] Potassium [Moles/Vol] 4.8 mmol/L Normal 3.5-5.1 [facility] Comment on above: Performed By: #### R ENAL ####[place] [id number] [facility] Sodium [Moles/Vol] 135 mmol/L Low 136-145 [facility] Comment on above: Performed By: #### R ENAL ####[place] [id number] [facility] Urea nitrogen [Mass/Vol] 51 mg/dL High 7-25 [facility] Comment on above: Performed By: #### R ENAL ####[place] [id number] [facility] Hemogram CBC Without Diffon 04-23-2024 Erythrocyte distribution width (RBC) [Ratio] 15.0 % High 12.0-14.8 [facility] Comment on above: Performed By: #### C VALERIA, RENAL ####[address] Hematocrit (Bld) [Volume fraction] 30.5 % Low 38.8-50.0 [facility] Comment on above: Performed By: #### C VALERIA, RENAL ####[address] Hemoglobin (Bld) [Mass/Vol] 10.5 g/dL Low 13.0-17.0 [facility] Comment on above: Performed By: #### C VALERIA, RENAL ####[address] MCH (RBC) [Entitic mass] 28.2 pg Normal 27.5-35.2 [facility] Comment on above: Performed By: #### C VALERIA, RENAL ####[address] MCV (RBC) [Entitic vol] 82.0 fL Low 83.5-101 [facility] Comment on above: Performed By: #### C VALERIA, RENAL ####[address] Mean Corpuscular HGB Conc 34.4 g/dL Normal 32.5-35.6 [facility] Comment on above: Performed By: #### C VALERIA, RENAL ####[address] Platelet mean volume (Bld) [Entitic vol] 8.3 fL Normal 6.6-10.1 [facility] Comment on above: Result Comment: PERF ORMED BY: [facility] [address] [place] [address] PATHOLOGIST ON CALL PHARMACY TECHNICIAN HALLE AVALOS M.D. Performed By: #### C VALERIA, RENAL ####[address] Platelets (Bld) [#/Vol] 323 10*3/uL Normal 150-450 [facility] Comment on above: Performed By: #### C BCNO, RENAL ####[address] RBC (Bld) [#/Vol] 3.72 10*6/uL Low 3.90-5.60 [facility] Comment on above: Performed By: #### C BCNO, RENAL ####[address] WBC (Bld) [#/Vol] 10.7 10*3/uL High 4.1-10.5 [facility] Comment on above: Performed By: #### C BCULYSSES, RENAL ####[address] Renal Function Panelon 04-23 Albumin [Mass/Vol] 3.5 g/dL Normal 3.5-5.7 [facility] Comment on above: Performed By: #### B MP #### [address] Anion gap [Moles/Vol] 13.8 mmol/L Normal 6.0-15.0 [facility] Comment on above: Performed By: #### B MP #### [address] Calcium [Mass/Vol] 9.2 mg/dL Normal 8.6-10.3 [facility] Comment on above: Performed By: #### B MP #### [address] Chloride [Moles/Vol] 101 mmol/L Normal 98-107 [facility] Comment on above: Performed By: #### B MP #### [address] CO2 [Moles/Vol] 24.4 mmol/L Normal 21.0-31.0 [facility] Comment on above: Performed By: #### B MP #### [place] [address] [place] Creatinine [Mass/Vol] 8.15 mg/dL Significan t change up 0.70-1.30 [facility] Comment on above: Performed By: #### B MP #### [address] Creatinine Clr Calc Pharmacy 11.19 Normal [facility] Comment on above: Result Comment: PERF ORMED BY: [place] [address] PATHOLOGIST ON CALL PHARMACY TECHNICIAN HALLE AVALOS M.D. Performed By: #### B MP #### [address] Estimated GFR 7.676 mL/Min Normal [facility] Comment on above: Performed By: #### B MP #### [address] Glucose [Mass/Vol] 77 mg/dL Normal 70-100 [facility] Comment on above: Result Comment: [place] Glucose Reference Range is dependent on time and content of last meal. Glucose of more than 200 mg/dL in a nonstressed, ambulatory subject supports the diagnosis of Diabetes Mellitus. ADA recommended reference range Performed By: #### B MP #### [address] Phosphate [Mass/Vol] 5.4 mg/dL High 2.5-4.5 [facility] Comment on above: Performed By: #### B MP #### [address] Potassium [Moles/Vol] 4.2 mmol/L Normal 3.5-5.1 [facility] Comment on above: Performed By: #### B MP #### [address] Sodium [Moles/Vol] 135 mmol/L Low 136-145 [facility] Comment on above: Performed By: #### B MP #### [address] Urea nitrogen [Mass/Vol] 39 mg/dL High 7-25 [facility] Comment on above: Performed By: #### B MP #### [address] Hemogram CBC Without Diffon 04-22-2024 Erythrocyte distribution width (RBC) [Ratio] 15.4 % High 12.0-14.8 [facility] Comment on above: Performed By: #### A RICHARDSON, GS #### [address] Hematocrit (Bld) [Volume fraction] 35.7 % Low 38.8-50.0 [facility] Comment on above: Performed By: #### A RICHARDSON, GS #### [address] Hemoglobin (Bld) [Mass/Vol] 12.2 g/dL Low 13.0-17.0 [facility] Comment on above: Performed By: #### A RICHARDSON, GS #### [address] MCH (RBC) [Entitic mass] 28.2 pg Normal 27.5-35.2 [facility] Comment on above: Performed By: #### A RICHARDSON, GS #### [address] MCV (RBC) [Entitic vol] 82.2 fL Low 83.5-101 [facility] Comment on above: Performed By: #### A ERC, GS #### [address] Mean Corpuscular HGB Conc 34.3 g/dL Normal 32.5-35.6 [facility] Comment on above: Performed By: #### A ERC, GS #### [address] Platelet mean volume (Bld) [Entitic vol] 7.9 fL Normal 6.6-10.1 [facility] Comment on above: Result Comment: PERF ORMED BY: [place] [address] PATHOLOGIST ON CALL PHARMACY TECHNICIAN HALLE AVALOS M.D. Performed By: #### A RICHARDSON, GS #### [address] Platelets (Bld) [#/Vol] 340 10*3/uL Normal 150-450 [facility] Comment on above: Performed By: #### A RICHARDSON, GS #### [address] RBC (Bld) [#/Vol] 4.34 10*6/uL Normal 3.90-5.60 [facility] Comment on above: Performed By: #### A RICHARDSON, GS #### [address] WBC (Bld) [#/Vol] 9.5 10*3/uL Normal 4.1-10.5 [facility] Comment on above: Performed By: #### A RICHARDSON, GS #### [address] Renal Function Panelon 04-22 Albumin [Mass/Vol] 3.9 g/dL Normal 3.5-5.7 [facility] Comment on above: Performed By: #### A HOSSEIN BAI #### [address] Anion gap [Moles/Vol] 15.4 mmol/L High 6.0-15.0 [facility] Comment on above: Performed By: #### A RICHARDSON GS #### [address] Calcium [Mass/Vol] 9.7 mg/dL Normal 8.6-10.3 [facility] Comment on above: Performed By: #### A RICHARDSON, GS #### [address] Chloride [Moles/Vol] 100 mmol/L Normal 98-107 [facility] Comment on above: Performed By: #### A RICHARDSON, GS #### [address] CO2 [Moles/Vol] 26.4 mmol/L Normal 21.0-31.0 [facility] Comment on above: Performed By: #### A RICHARDSON, GS #### [address] Creatinine [Mass/Vol] 9.43 mg/dL Significan t change up 0.70-1.30 [facility] Comment on above: Performed By: #### A RICHARDSON, GS #### [address] Creatinine Clr Calc Pharmacy 9.67 Normal [facility] Comment on above: Result Comment: PERF ORMED BY: [place] [address] PATHOLOGIST ON CALL PHARMACY TECHNICIAN HALLE AVALOS M.D. Performed By: #### A RICHARDSON, GS #### [address] Estimated GFR 6.444 mL/Min Normal [facility] Comment on above: Performed By: #### A RICHARDSON, GS #### [address] Glucose [Mass/Vol] 81 mg/dL Normal 70-100 [facility] Comment on above: Result Comment: [place] Glucose Reference Range is dependent on time and content of last meal. Glucose of more than 200 mg/dL in a nonstressed, ambulatory subject supports the diagnosis of Diabetes Mellitus. ADA recommended reference range Performed By: #### A RICHARDSON, GS #### [address] Phosphate [Mass/Vol] 6.9 mg/dL High 2.5-4.5 [facility] Comment on above: Performed By: #### A RICHARDSON, GS #### [place] [address] [place] Potassium [Moles/Vol] 4.8 mmol/L Normal 3.5-5.1 [facility] Comment on above: Result Comment: Hemo lysis is present at a level that could interfere with the result. Contact lab if redraw is required Performed By: #### A RICHARDSON, GS #### [address] Sodium [Moles/Vol] 137 mmol/L Normal 136-145 [facility] Comment on above: Performed By: #### A HOSSEIN BAI #### [address] Urea nitrogen [Mass/Vol] 56 mg/dL Significant change up 7-25 [facility] Comment on above: Performed By: #### A RICHARDSON, HOSSEIN #### [address] 24 hour urine albumin/total protein ratio by electrophoresisOrdered By: Ben Bravo on 04-21-2024 Albumin Elph (24H U) [Mass fraction] Albumin/Protein.total in 24 hour Urine by Electrophoresis . [facility] 24 hour urine gamma globulin /total protein ratio by electrophoresisOrdered By: Ben Bravo on 04-21-2024 Gamma globulin Elph (24H U) [Mass fraction] Gamma globulin/Protein.total in 24 hour Urine by Electrophoresis . [facility] 24 hour urine protein monocl onal/total protein by electrophoresisOrdered By: Ben Bravo on 04-21-2024 Protein.monoclonal Elph (24H U) [Mass fraction] Protein.monoclonal/Prote in.total in 24 hour Urine by Electrophoresis Not Observed [facility] Creatine Kinaseon 04-21-2024 CK [Catalytic activity/Vol] 293 U/L High 30-223 [facility] Comment on above: Result Comment: PERF ORMED BY: [place] [address] PATHOLOGIST ON CALL PHARMACY TECHNICIAN HALLE AVALOS M.D. Performed By: #### B MP #### [address] Creatine kinase [Enzymatic a ctivity/volume] in Serum or PlasmaOrdered By: Timi Ferguson on 04-21-2024 CK [Catalytic activity/Vol] Creatine kinase [Enzymatic activity/volume] in Serum or Plasma High 30-223 [facility] Cryoglobulin with Quant Refl exon 04-21-2024 Cryoglobulin, Ql, Serum Comment Normal None detected [facility] Comment on above: Order Comment: DRAW IN AM PER WILIAM HERNANDEZ,KAH CAN'T DRAW 37 READ AND BLUE TOP HE'S BEING HEPERNIZED Result Comment: None Detected at 72 hours This test was developed and its performance characteristics determined by [facility]. It has not been cleared or approved by the Food and Drug Administration. Performed at: [facility] [address] [id number] Juice Tester: Ta Norris PhD, Phone: [phone] PERFORMED BY: [place] [address] PATHOLOGIST ON CALL PHARMACY TECHNICIAN HALLE AVALOS M.D. Performed By: #### A ERC, GS #### [place] [address] [place] Dipstick and Microscopicon 0 04-21-2024 Appearance (U) Clear Normal Clear [facility] Comment on above: Order Comment: Name Collection Type:: Clean-Voided Midstream Performed By: #### A ERC, GS #### [address] Bacteria,Urine Rare Normal None Seen [facility] Comment on above: Order Comment: Name Collection Type:: Clean-Voided Midstream Performed By: #### A ERC, GS #### [address] Bilirubin,Urine Negative Normal Negative [facility] Comment on above: Order Comment: Name Collection Type:: Clean-Voided Midstream Performed By: #### A ERC, GS #### [place] [address] [place] Color (U) Colorless Normal Yellow [facility] Comment on above: Order Comment: Name Collection Type:: Clean-Voided Midstream Performed By: #### A ERC, GS #### [place] [address] [place] Glucose Ql (U) Normal Normal Normal [facility] Comment on above: Order Comment: Name Collection Type:: Clean-Voided Midstream Performed By: #### A ERC, GS #### [place] [address] [place] Hyaline Casts,Urine None Normal 0-8 [facility] Comment on above: Order Comment: Name Collection Type:: Clean-Voided Midstream Performed By: #### A ERC, GS #### [address] Ketones Ql (U) Negative Normal Negative [facility] Comment on above: Order Comment: Name Collection Type:: Clean-Voided Midstream Performed By: #### A ERC, GS #### [address] Leukocyte esterase Test strip Ql (U) 4+ High Negative [facility] Comment on above: Order Comment: Name Collection Type:: Clean-Voided Midstream Performed By: #### A ERC, GS #### [address] Mucus,Urine Rare Normal [facility] Comment on above: Order Comment: Name Collection Type:: Clean-Voided Midstream Result Comment: PERF ORMED BY: [place] [address] PATHOLOGIST ON CALL PHARMACY TECHNICIAN HALLE AVALOS M.D. Performed By: #### A ERC, GS #### [place] [address] [place] Nitrite,Urine Negative Normal Negative [facility] Comment on above: Order Comment: Name Collection Type:: Clean-Voided Midstream Performed By: #### A ERC, GS #### [place] [address] [place] Occult Blood,Urine 2+ High Negative [facility] Comment on above: Order Comment: Name Collection Type:: Clean-Voided Midstream Result Comment: PERF ORMED BY: [place] [address] PATHOLOGIST ON CALL PHARMACY TECHNICIAN HALLE AVALOS M.D. Performed By: #### A ERC, GS #### [address] pH (U) 6.5 [pH] Normal 5.0-9.0 [facility] Comment on above: Order Comment: Name Collection Type:: Clean-Voided Midstream Performed By: #### A ERC, GS #### [address] Protein,Urine Trace High Negative [facility] Comment on above: Order Comment: Name Collection Type:: Clean-Voided Midstream Performed By: #### A ERC, GS #### [address] RBC,Urine 10-19 High 0-4 [facility] Comment on above: Order Comment: Name Collection Type:: Clean-Voided Midstream Performed By: #### A ERC, GS #### [address] Specificy [place],Urine 1.008 Normal 1.001-1.030 [facility] Comment on above: Order Comment: Name Collection Type:: Clean-Voided Midstream Performed By: #### A ERC, GS #### [address] Urobilinogen,Urine Normal Normal Normal [facility] Comment on above: Order Comment: Name Collection Type:: Clean-Voided Midstream Performed By: #### A ERC, GS #### [address] WBC CLUMP, Urine Moderate High None Seen [facility] Comment on above: Order Comment: Name Collection Type:: Clean-Voided Midstream Performed By: #### A ERC, GS #### [address] WBC,Urine 20-49 High 0-4 [facility] Comment on above: Order Comment: Name Collection Type:: Clean-Voided Midstream Performed By: #### A ERC, GS #### [address] ECG 12 lead ECGon 04-21-2024 ECG 12 lead ECG [facility] Main [place] [address] [place] [address] Electrocardiograph Report Signed Patient: Ness Beaver MR#: [id number] : 1980 Acct:[id number] Age/Sex: 44 / M ADM Date: 04/20/24 Loc: Room: [address] [place] [address] Type: ADM IN Attending Dr: Jean Pierre Hassan MD Ordering Provider: Timi Ferguson DO Date of Service: 04/21/24 ECG/ECG 12 lead ECG: monitor QT interval Copies to: Test Reason : Blood Pressure : 145/84 mmHG Vent. Rate : 85 BPM Atrial Rate : 85 BPM P-R Int : 140 ms QRS Dur : 76 ms QT Int : 384 ms P-R-T Axes : 54 18 35 degrees QTcB Int : 456 ms Normal sinus rhythm Anteroseptal infarct , age undetermined Abnormal ECG When compared with ECG of 22-Dec-2023 09:39, Vent. rate has increased by 31 bpm Anteroseptal infarct is now present QT has lengthened Confirmed by Tao David ([id number]) on 04/21/2024 5:13:15 PM Referred By: Electronically Signed By: Tao David Transcribed By: MUS Signed By Tao David MD 04/21/24 1713 Normal [facility] Ferritinon 04-21-2024 Ferritin [Mass/Vol] 146.4 ng/mL Normal 23.9-336.2 [facility] Comment on above: Performed By: #### H BCAB, HEPACUTE, HBSAB #### [facility] , Ferritin [Mass/volume] in Se rum or PlasmaOrdered By: Ben Bravo on 04-21-2024 Ferritin [Mass/Vol] Ferritin [Mass/volum e] in Serum or Plasma 23.9-336.2 [facility] Folate [Mass/volume] in Seru m or PlasmaOrdered By: Ben Bravo on 04-21-2024 Folate [Mass/Vol] Folate [Mass/volume] in Serum or Plasma >5.9 [facility] Comment on above: Folate reference ran ge: >5.9 ng/mlThe WHO technical consultation on folate and vitamin [id number] has determined that folate concentrations lessthan 4 ng/ml are considered deficient. Haptoglobinon 04-21-2024 Haptoglobin 210 mg/dL Normal 44-215 [facility] Comment on above: Result Comment: PERF ORMED BY: [place] [address] PATHOLOGIST ON CALL PHARMACY TECHNICIAN HALLE AVALOS M.D. Performed By: #### A HOSSEIN BAI #### [address] Haptoglobin [Mass/volume] in Serum or PlasmaOrdered By: Ben Bravo on 04-21-2024 Haptoglobin [Mass/Vol] Haptoglobin [Mass/volume] in Serum or Plasma 44-215 [facility] Hemogram CBC Without Diffon 04-21-2024 Erythrocyte distribution width (RBC) [Ratio] 15.2 % High 12.0-14.8 [facility] Comment on above: Performed By: #### B MP #### [address] Hematocrit (Bld) [Volume fraction] 31.2 % Low 38.8-50.0 [facility] Comment on above: Performed By: #### B MP #### [address] Hemoglobin (Bld) [Mass/Vol] 10.8 g/dL Low 13.0-17.0 [facility] Comment on above: Performed By: #### B MP #### [address] MCH (RBC) [Entitic mass] 28.1 pg Normal 27.5-35.2 [facility] Comment on above: Performed By: #### B MP #### [address] MCV (RBC) [Entitic vol] 81.1 fL Low 83.5-101 [facility] Comment on above: Performed By: #### B MP #### [address] Mean Corpuscular HGB Conc 34.7 g/dL Normal 32.5-35.6 [facility] Comment on above: Performed By: #### B MP #### [address] Platelet mean volume (Bld) [Entitic vol] 8.0 fL Normal 6.6-10.1 [facility] Comment on above: Result Comment: PERF ORMED BY: [place] [address] PATHOLOGIST ON CALL PHARMACY TECHNICIAN HALLE AVALOS M.D. Performed By: #### B MP #### [address] Platelets (Bld) [#/Vol] 343 10*3/uL Normal 150-450 [facility] Comment on above: Performed By: #### B MP #### [address] RBC (Bld) [#/Vol] 3.84 10*6/uL Low 3.90-5.60 [facility] Comment on above: Performed By: #### B MP #### [address] WBC (Bld) [#/Vol] 7.5 10*3/uL Normal 4.1-10.5 [facility] Comment on above: Performed By: #### B MP #### [address] Immunofixation for UrineOrde red By: Ben Bravo on 04-21-2024 Interpretation Immunofixation (U) [Interp] Immunofixation for Urine . [facility] Comment on above: No monoclonality det ected.Performed at: [facility] [id number] Director: Ta Norris PhD, Phone: [phone] Immunofixation, (SOY), Urine on 04-21-2024 Immunofixation, (SOY), Urine Comment Normal . [facility] Comment on above: Result Comment: No m onoclonality detected. Performed at: [facility] [address] [id number] Juice Tester: Ta Norris PhD, Phone: [phone] Performed By: #### H BCAB, HEPACUTE, HBSAB #### [facility] , Iron [Mass/volume] in Serum or PlasmaOrdered By: Ben Bravo on 04-21-2024 Iron [Mass/Vol] Iron [Mass/volume] i n Serum or Plasma 50-212 [facility] Iron and TIBC Profileon 04-02 % Iron Saturation 42.9 % Normal 20-50 [facility] Comment on above: Performed By: #### H BCAB, HEPACUTE, HBSAB #### [facility] , Iron [Mass/Vol] 90 ug/dL Normal 50-212 [facility] Comment on above: Performed By: #### H BCAB, HEPACUTE, HBSAB #### [facility] , Total Iron Binding Capacity 210 ug/dL Low 255-450 [facility] Comment on above: Performed By: #### H BCAB, HEPACUTE, HBSAB #### [facility] , Transferrin [Mass/Vol] 150 mg/dL Low 203-362 [facility] Comment on above: Performed By: #### H BCAB, HEPACUTE, HBSAB #### [facility] , Bean 04-21-2024 L ---- Specimen: [id number] Received: 04/21/24 Status: VANDANA Shirley Num: [id number] Spec Type: Impression Subm Dr: Ben Bravo MD Tissues: PATHPER Procedures: PATHREVIEW Age/ Patient Sex Location Account Attending Physician Ness Beaver /[facility] [id number] Jean Pierre Hassan MD SPEC NUM: [id number] RECD: 04/21/24 STATUS: SOUT REErasmo NUM: [id number] MICHEAL: 04/21/24- DR: Ben Bravo MD ENTERED: 04/21/[address] [facility] [address]: EVE TYPE: Impression DEPT: [place] ENTERED BY: [id number] RECV BY: [id number] ORDERED: PATHREVIEW ORDERED: PATHREVIEW Pathologist Review Peripheral blood smear evaluation: - Mild microcytic anemia with anisopoikilocytosis, recommend clinical correlation and rule out iron deficiency anemia.. - White blood cell and Platelet: Unremarkable. CPT: 52218 CBC Date Time Test Result Flag (u) Normal Range 04/20/24 1810 Neut % (Auto) 80.1 . % Lymp % (Auto) 13.1 . % Maury % (Auto) 4.7 . % Eos % (Auto) 1.2 . % Baso % (Auto) 0.9 . % NRBC% 0.0 0-0.5 /100 WBC Neut # (Auto) 4.0 1.8-7.7 x10E3/uL Lymph # (Auto) 0.7 L 1.00-4.8 x10E3/uL Maury # (Auto) 0.2 0.0-0.8 x10E3/uL Eos # (Auto) 0.1 0.0-0.45 x10E3/uL Baso# (Auto) 0.0 0.0-0.2 x10E3/uL 04/21/24 0719 WBC 7.5 4.1-10.5 X10E3/uL RBC 3.84 L 3.90-5.60 x10E6/uL HGB 10.8 L 13.0-17.0 g/dL HCT 31.2 L 38.8-50.0 % Specimen: [id number] Received: 04/21/24-1110 Status: VANDANA Davis Num: [id number] Spec Type: Impression Subm Dr: Ben Bravo MD Tissues: PATHPER Procedures: PATHREVIEW Patient: Ness Beaver [id number] (Continued) Specimen: Received: 04/21/24-1110 (Continued) CBC (Continued) Signed (signature on file) Avery Weller MD 04/21/24 1247 Specimen: Received: 04/21/24 Status: VANDANA Shirley Num: [id number] Spec Type: Impression Subm Dr: Ben Bravo MD Tissues: PATHPER Procedures: PATHREVIEW Patient: Ness Beaver [id number] (Continued) Specimen: Received: 04/21/24-1110 (Continued) CBC (Continued) MCV 81.1 L 83.5-101 fl MCH 28.1 27.5-35.2 pg MCHC 34.7 32.5-35.6 g/dL RDW 15.2 H 12.0-14.8 % Plt 343 150-450 x10E3/uL MPV 8.0 6.6-10.1 fl Specimen: [id number] Received: 04/21/24 Status: VANDANA Davis Num: [id number] Spec Type: Impression Subm Dr: Ben Bravo MD Tissues: PATHPER Procedures: PATHREVIEW Patient: Ness Beaver [id number] (Continued) Signed (signature on file) Avery Weller MD 04/21/24 1247 Normal [facility] LDH Lactate Dehydrogenaseon 04-21-2024 LDH Lactate Dehydrogenase 322 U/L High 140-271 [facility] Comment on above: Result Comment: PERF ORMED BY: [place] [address] PATHOLOGIST ON CALL PHARMACY TECHNICIAN HALLE AVALOS M.D. Performed By: #### A RICHARDSON, HOSSEIN #### [facility] [address] [place] [address] [facility] Lactate dehydrogenase [Enzym atic activity/volume] in Serum or Plasma by Lactate to pyOrdered By: Ben Bravo on 04-21-2024 LDH Lactate to pyruvate reaction [Catalytic activity/Vol] Lactate dehydrogenase [Enzymatic activity/volume] in Serum or Plasma by Lactate to py High 140-271 [facility] Leukocyte clumps [Presence] in Urine by AutomatedOrdered By: Ben Bravo on 04-21-2024 Leukocyte clumps Auto Ql (U) Leukocyte clumps [Presence] in Urine by Automated High None Seen [facility] Mucus [Presence] in Urine by AutomatedOrdered By: Ben Bravo on 04-21-2024 Mucus Auto Ql (U) Mucus [Presence] in Urine by Automated [facility] No Panel InformationOrdered By: Ben Bravo on 04-21-2024 Slides for Pathologist Review Ordered path review [facility] Urine Random Prot Electrophor Note Comment . [facility] Comment on above: Protein electrophore sis scan will follow via computer,mail, or salesperson flying squad delivery. Partial Thromboplastin Timeo n 04-21-2024 aPTT Coag (Bld) [Time] 28.6 s Normal 25.1-36.5 Th e [facility] Comment on above: Result Comment: A he matocrit value greater than 55% may lead to inaccurate results in coagulation testing. Patients having hematocrit values >55% require a special collection tube for coagulation studies. Please contact the laboratory at [phone] for redraw instructions. PERFORMED BY: [address] [address] PATHOLOGIST ON CALL PHARMACY TECHNICIAN HALLE AVALOS M.D. Performed By: #### B MP #### [address] [address] [facility] Pathologist Slide Reviewon 0 04-21-2024 Pathologist Slide Review Ordered Path Review Normal [facility] Comment on above: Result Comment: PERF ORMED BY: [place] [address] PATHOLOGIST ON CALL PHARMACY TECHNICIAN HALLE AVALOS M.D. Performed By: #### A HOSSEIN BAI #### [address] Pathology study report docum entOrdered By: Avery Weller on 04-21-2024 Pathology study [facility] Other Phone: Protein Electro, Random Urin nadeem 04-21-2024 Albumin, Urine 54.4 % Normal . [facility] Comment on above: Performed By: #### H BCAB, HEPACUTE, HBSAB #### [facility] , Ybtco-5-Xhfbuunw, Urine 6.7 % Normal . [facility] Comment on above: Performed By: #### H BCAB, HEPACUTE, HBSAB #### [facility] , Jabeq-6-Wbkopdzv, Urine 10.3 % Normal . [facility] Comment on above: Performed By: #### H BCAB, HEPACUTE, HBSAB #### [facility] , Beta Globulin, Urine 15.2 % Normal . [facility] Comment on above: Performed By: #### H BCAB, HEPACUTE, HBSAB #### [facility] , Gamma Globulin, Urine 13.4 % Normal . [facility] Comment on above: Performed By: #### H BCAB, HEPACUTE, HBSAB #### [facility] , M-Yong % Not Observed Normal Not Observed [facility] Comment on above: Performed By: #### H BCAB, HEPACUTE, HBSAB #### [facility] , Please Note: Comment Normal . [facility] Comment on above: Result Comment: Prot ein electrophoresis scan will follow via computer, mail, or salesperson flying squad delivery. PERFORMED BY: [address] [address] PATHOLOGIST ON CALL PHARMACY TECHNICIAN HALLE AVALOS M.D. Performed By: #### H BCAB, HEPACUTE, HBSAB #### [facility] , Protein (U) [Mass/Vol] 21.1 mg/dL Normal Not Estab. [facility] e [facility] Comment on above: Performed By: #### H BCAB, HEPACUTE, HBSAB #### [facility] , Prothrombin Time INRon 04-21 INR Coag (PPP) [Relative time] 1.1 {INR} Normal [facility] Comment on above: Result Comment: INR Therapeutic Range A) Pre- and Peroperative OAT started two weeks before surgery. NOT HIP SURGERY: 1.5 - 2.5 HIP SURGERY: 2 - 3 B) Primary and secondary prevention of venous THROMBOSIS: 2 - 3 C) Active venous thrombosis, pulmonary embolism and prevention of recurrent venous thrombosis: 2 - 3 D) Prevention of arterial thromboembolism including patients with mechanical heart valves: 3 - 4.5 Performed By: #### B MP #### [facility] [address] PT Coag (PPP) [Time] 12.9 s Normal 9.0-12.9 [facility] Comment on above: Result Comment: A he matocrit value greater than 55% may lead to inaccurate results in coagulation testing. Patients having hematocrit values >55% require a special collection tube for coagulation studies. Please contact the laboratory at [phone] for redraw instructions. Performed By: #### B MP #### [facility] [address] [place] [id number] [facility] Renal Function Panelon 04-21 Albumin [Mass/Vol] 3.3 g/dL Low 3.5-5.7 [facility] Comment on above: Performed By: #### B MP #### [facility] [address] [place] [id number] [facility] Anion gap [Moles/Vol] 19.9 mmol/L High 6.0-15.0 e [facility] Comment on above: Performed By: #### B MP #### [address] Calcium [Mass/Vol] 8.8 mg/dL Normal 8.6-10.3 [facility] Comment on above: Performed By: #### B MP #### [address] Chloride [Moles/Vol] 97 mmol/L Low 98-107 [facility] Comment on above: Performed By: #### B MP #### [address] CO2 [Moles/Vol] 26.2 mmol/L Normal 21.0-31.0 [facility] Comment on above: Performed By: #### B MP #### [address] Creatinine [Mass/Vol] 13.13 mg/dL Significan t change up 0.70-1.30 [facility] Comment on above: Performed By: #### B MP #### [address] Creatinine Clr Calc Pharmacy 6.95 Normal [facility] Comment on above: Performed By: #### B MP #### [address] Estimated GFR 4.331 mL/Min Normal [facility] Comment on above: Performed By: #### B MP #### [address] Glucose [Mass/Vol] 117 mg/dL High 70-100 [facility] Comment on above: Result Comment: [facility] Glucose Reference Range is dependent on time and content of last meal. Glucose of more than 200 mg/dL in a nonstressed, ambulatory subject supports the diagnosis of Diabetes Mellitus. ADA recommended reference range Performed By: #### B MP #### [address] Phosphate [Mass/Vol] 8.8 mg/dL High 2.5-4.5 [facility] Comment on above: Performed By: #### B MP #### [address] Potassium [Moles/Vol] 5.1 mmol/L Normal 3.5-5.1 [facility] Comment on above: Performed By: #### B MP #### [facility] [address] Sodium [Moles/Vol] 138 mmol/L Normal 136-145 [facility] Comment on above: Performed By: #### B MP #### [facility] [address] Urea nitrogen [Mass/Vol] 97 mg/dL Significant change up 09-22 [facility] Comment on above: Performed By: #### B MP #### [facility] [address] [place] [address] Serum cryoglobulin detection Ordered By: Ben Bravo on 04-21-2024 Cryoglobulin Ql (S) Serum cryoglobulin detection None detected [facility] Comment on above: None Detected at 72 hoursThis test was developed and its performance characteristicsdetermined by [employer]. It has not been cleared orapproved by the Food and Drug Administration.Performed at: [facility]Jul[facility] [id number] Director: Ta Norris PhD, Phone: [phone] Serum or plasma iron binding capacity measurement (mass/volume)Ordered By: Ben Bravo on 04-21-2024 Iron binding capacity [Mass/Vol] Iron binding capacity [Mass/volume] in Serum or Plasma Low 255-450 [facility] Serum or plasma iron saturat ion measurement (mass fraction)Ordered By: Ben Bravo on 04-21-2024 Iron saturation [Mass fraction] Iron saturation [Mass Fraction] in Serum or Plasma 20-50 [facility] Transferrin [Mass/volume] in Serum or PlasmaOrdered By: Ben Bravo on 04-21-2024 Transferrin [Mass/Vol] Transferrin [Mass/volume] in Serum or Plasma Low 203-362 [facility] Urate [Mass/volume] in Serum or PlasmaOrdered By: Timi Ferguson on 04-21-2024 Urate [Mass/Vol] Urate [Mass/volume] in Serum or Plasma High 4.4-7.6 [facility] Uric Acidon 04-21-2024 Urate [Mass/Vol] 7.9 mg/dL High 4.4-7.6 [facility] Comment on above: Result Comment: PERF ORMED BY: [place] [address] PATHOLOGIST ON CALL PHARMACY TECHNICIAN HALLE AVALOS M.D. Performed By: #### B MP #### [address] Urine Cultureon 04-21-2024 Bacteria identified Cx Nom (U) <9,000 colonies/ml mixed bacterial skin contaminants 2 Days PERFORMED [place] [address] PATHOLOGIST ON CALL PHARMACY TECHNICIAN HALLE AVALOS M.D. Normal [facility] Comment on above: Performed By: #### A ERC, #### [address] Urine alpha 1 globulin/total protein by electrophoresisOrdered By: Ben Shelly on 04-21-2024 Alpha 1 globulin Elph (U) [Mass fraction] Urine alpha 1 globulin/total protein by electrophoresis . [facility] Urine alpha 2 globulin/total protein ratio by electrophoresisOrdered By: Ben Shelly on 04-21-2024 Alpha 2 globulin Elph (U) [Mass fraction] Urine alpha 2 globulin/total protein ratio by electrophoresis . [facility] Urine beta globulin measurem ent by electrophoresis (mass/volume)Ordered By: Ben Shelly on 04-21-2024 Beta globulin Elph (U) [Mass/Vol] Urine beta globulin measurement by electrophoresis (mass/volume) . [facility] Urine cultureOrdered By: Abd ul Shelly on 04-21-2024 Bacteria identified Cx Nom (U) Urine culture [facility] Bacteria identified Cx Nom (U) Urine culture [facility] Urine protein measurement (m ass/volume)Ordered By: Ben Shelly on 04-21-2024 Protein (U) [Mass/Vol] Protein [Mass/vol ume] in Urine Not Estab. [facility] Vit. B12/Folate Profileon Cobalamin (Vitamin B12) [Mass/Vol] 454 pg/mL Normal 180-914 [facility] Comment on above: Performed By: #### H BCAB, HEPACUTE, HBSAB #### [facility] , Folate 18.5 ng/mL Normal >5.9 [facility] Comment on above: Result Comment: Yue te reference range: >5.9 ng/ml The WHO technical consultation on folate and vitamin b12 deficiencies has determined that folate concentrations less than 4 ng/ml are considered deficient. PERFORMED BY: [address] [place] [address] PATHOLOGIST ON CALL PHARMACY TECHNICIAN HALLE AVALOS M.D. Performed By: #### H BCAB, HEPACUTE, HBSAB #### [facility] , Vitamin B12 ser/plasOrdered By: Ben Bravo on 04-21-2024 Cobalamin (Vitamin B12) [Mass/Vol] Vitamin B12 ser/plas 180-914 [facility] A1C with Estimated Average G luon 04-20-2024 Glucose [Mass/Vol] 97 mg/dL Normal [facility] Comment on above: Order Comment: label s and tubes given to WILIAM WATSON 170 Result Comment: PERF ORMED BY: [address] [place] [address] PATHOLOGIST ON CALL PHARMACY TECHNICIAN HALLE AVALOS M.D. Performed By: #### H BCAB, HEPACUTE, HBSAB #### [facility] , HbA1c (Bld) [Mass fraction] 5.0 % Normal 4.3-5.6 [facility] Comment on above: Order Comment: label s and tubes given to WILIAM WATSON 1704 Result Comment: Incr eased risk for diabetes: 5.7 - 6.4 diabetes: >6.4 glycemic control for adults with diabetes: <7.0 Performed By: #### H BCAB, HEPACUTE, HBSAB #### [facility] , SIGIFREDO Antinuclear Antibodieson 04-20-2024 Antinuclear Abs, IFA Negative Normal . [facility] Comment on above: Result Comment: Nega tive <1:80 Borderline 1:80 Positive >1:80 ICAP nomenclature: AC-0 For more information about Hep-2 cell patterns use ANApatterns.org, the official website for the International Consensus on Antinuclear Antibody (SIGIFREDO) Patterns (ICAP). Performed at: [address] [id number] Juice Tester: Ta Norris PhD, Phone: [phone] Performed By: #### H BCAB, HEPACUTE, HBSAB #### [facility] , ANCA Profile (ANCA+MPO+PR3)o n 04-20-2024 Antimyeloperoxidase (MPO) Abs <0.2 Normal 0.0-0.9 [facility] Comment on above: Performed By: #### H BCAB, HEPACUTE, HBSAB #### [facility] , Atypical pANCA <1:20 Normal Neg:<1:20 [facility] Comment on above: Result Comment: The atypical pANCA pattern has been observed in a significant percentage of patients with ulcerative colitis, primary sclerosing cholangitis and autoimmune hepatitis. Performed at: [address] [id number] Juice Tester: Alexys Cooper MD, Phone: [phone] Performed at: [address] [id number] Juice Tester: Ta Norris PhD, Phone: [phone] Performed By: #### H BCAB, HEPACUTE, HBSAB #### [facility] , Cytoplasmic (C-ANCA) <1:20 Normal Neg:<1:20 [facility] Comment on above: Performed By: #### H BCAB, HEPACUTE, HBSAB #### [facility] , Perinuclear (P-ANCA) <1:20 Normal Neg:<1:20 [facility] Comment on above: Result Comment: The presence of positive fluorescence exhibiting P-ANCA or C-ANCA patterns alone is not specific for the diagnosis of Leatha's Granulomatosis (WG) or microscopic polyangiitis. Decisions about treatment should not be based solely on ANCA IFA results. The International ANCA Group Consensus recommends follow up testing of positive sera with both MN- 3 and MPO-ANCA enzyme immunoassays. As many as 5% serum samples are positive only by EIA. Ref. AM J Clin Pathol 1999;111:507-513. Performed By: #### H BCAB, HEPACUTE, HBSAB #### [facility] , Proteinase 3 (PR3) Antibodies <0.2 Normal 0.0-0.9 [facility] Comment on above: Result Comment: PERF ORMED BY: [facility] [address] [place] [address] PATHOLOGIST ON CALL PHARMACY TECHNICIAN HALLE AVALOS M.D. Performed By: #### H BCAB, HEPACUTE, HBSAB #### [facility] , Alanine aminotransferase [En zymatic activity/volume] in Serum or PlasmaOrdered By: Timi Ferguson on 04-20-2024 ALT [Catalytic activity/Vol] Alanine aminotransferase [Enzymatic activity/volume] in Serum or Plasma High 7-52 [facility] Albumin [Mass/volume] in Ser um or Plasma by Bromocresol green (BCG) dye binding methoOrdered By: Timi Ferguson on 04-20-2024 Albumin BCG dye [Mass/Vol] Albumin [Mass/volume] in Serum or Plasma by Bromocresol green (BCG) dye binding metho Low 3.5-5.7 [facility] Alkaline phosphatase [Enzyma tic activity/volume] in Serum or PlasmaOrdered By: Timi Ferguson on 04-20-2024 ALP [Catalytic activity/Vol] Alkaline phosphatase [Enzymatic activity/volume] in Serum or Plasma 34-104 [facility] Anti-Glomerular Basement Mem bon 04-20-2024 Anti-Glomerular Basement Memb <0.2 Normal 0.0-0.9 [facility] Comment on above: Result Comment: Perf ormed at: - [facility] [id number] Juice Tester: Alexys Cooper MD, Phone: [phone] Performed By: #### H BCAB, HEPACUTE, HBSAB #### [facility] , Aspartate aminotransferase [ Enzymatic activity/volume] in Serum or PlasmaOrdered By: Timi Ferguson on 04-20-2024 AST [Catalytic activity/Vol] Aspartate aminotransferase [Enzymatic activity/volume] in Serum or Plasma 13-39 [facility] Atypical perinuclear antineu trophil cytoplasmic antibodies measurementOrdered By: Ben Bravo on 04-20-2024 Atypical p-ANCA <1:20 titer Neg:<1:20 [facility] Comment on above: The atypical pANCA p attern has been observed in asignificant percentage of patients with ulcerative colitis,primary sclerosing cholangitis and autoimmune hepatitis.Performed at: - [facility] [id number] Director: Alexys Cooper MD, Phone: [phone] at: [facility] [id number] Director: Ta Norris PhD, Phone: [phone] Basic Metabolic Panelon 04-02 Anion gap [Moles/Vol] 23.4 mmol/L High 6.0-15.0 [facility] Comment on above: Order Comment: CAN'T DRAW 37 READ AND BLUE TOP HE'S BEING HEPERNIZED Performed By: #### B MP #### [address] Calcium [Mass/Vol] 8.7 mg/dL Normal 8.6-10.3 [facility] Comment on above: Order Comment: CAN'T DRAW 37 READ AND BLUE TOP HE'S BEING HEPERNIZED Performed By: #### B MP #### [address] Chloride [Moles/Vol] 97 mmol/L Low 98-107 [facility] Comment on above: Order Comment: CAN'T DRAW 37 READ AND BLUE TOP HE'S BEING HEPERNIZED Performed By: #### B MP #### [address] CO2 [Moles/Vol] 21.8 mmol/L Normal 21.0-31.0 [facility] Comment on above: Order Comment: CAN'T DRAW 37 READ AND BLUE TOP HE'S BEING HEPERNIZED Performed By: #### B MP #### [address] Creatinine [Mass/Vol] 14.86 mg/dL High 0.70-1.30 [facility] Comment on above: Order Comment: CAN'T DRAW 37 READ AND BLUE TOP HE'S BEING HEPERNIZED Performed By: #### B MP #### [address] Creatinine Clr Calc Pharmacy 6.14 Normal [facility] Comment on above: Order Comment: CAN'T DRAW 37 READ AND BLUE TOP HE'S BEING HEPERNIZED Performed By: #### B MP #### [address] Estimated GFR 3.734 mL/Min Normal [facility] Comment on above: Order Comment: CAN'T DRAW 37 READ AND BLUE TOP HE'S BEING HEPERNIZED Performed By: #### B MP #### [address] Glucose [Mass/Vol] 96 mg/dL Normal 70-100 [facility] Comment on above: Order Comment: CAN'T DRAW 37 READ AND BLUE TOP HE'S BEING HEPERNIZED Result Comment: [place] Glucose Reference Range is dependent on time and content of last meal. Glucose of more than 200 mg/dL in a nonstressed, ambulatory subject supports the diagnosis of Diabetes Mellitus. ADA recommended reference range Performed By: #### B MP #### [address] Potassium [Moles/Vol] 5.2 mmol/L High 3.5-5.1 [facility] Comment on above: Order Comment: CAN'T DRAW 37 READ AND BLUE TOP HE'S BEING HEPERNIZED Performed By: #### B MP #### [address] [place] [address] [place] Sodium [Moles/Vol] 137 mmol/L Normal 136-145 [facility] Comment on above: Order Comment: CAN'T DRAW 37 READ AND BLUE TOP HE'S BEING HEPERNIZED Performed By: #### B MP #### [facility] [address] Urea nitrogen [Mass/Vol] 134 mg/dL High 7-25 [facility] Comment on above: Order Comment: CAN'T DRAW 37 READ AND BLUE TOP HE'S BEING HEPERNIZED Performed By: #### B MP #### [facility] [address] Basophils Auto (Bld) [#/Vol] Ordered By: Timi Ferguson on 04-20-2024 Basophils (Bld) [#/Vol] Automated basophil count 0.0-0.2 [facility] Basophils Auto (Bld) [#/Vol] on 04-20-2024 Basophils (Bld) [#/Vol] Automated basophil count 0.0-0.1 [facility] Basophils/100 WBC Auto (Bld) Ordered By: Timi Ferguson on 04-20-2024 Basophils/100 WBC (Bld) Automated basophil % . [facility] Basophils/100 WBC Auto (Bld) on 04-20-2024 Basophils/100 WBC (Bld) Automated basophil % Low 0. 2-2.0 [facility] Bilirubin.direct [Mass/volum e] in Serum or PlasmaOrdered By: Timi Ferguson on 04-20-2024 Bilirubin.direct [Mass/Vol] Bilirubin.direct [Mass/volume] in Serum or Plasma Low 0.03-0.18 [facility] Comment on above: If the DBIL is less than 0.1, IBIL is not able to becalculated. Bilirubin.total [Mass/volume ] in Serum or PlasmaOrdered By: Timi Ferguson on 04-20-2024 Bilirubin [Mass/Vol] Bilirubin.total [Mass/volume] in Serum or Plasma 0.3-1.0 [facility] Blood estimated average gluc ose determination by estimation from glycated hemoglobinOrdered By: Timi Ferguson on 04-20-2024 Average glucose Estimated from glycated hemoglobin (Bld) [Mass/Vol] Glucose mean value [Mass/volume] in Blood Estimated from glycated hemoglobin [facility] Buprenorphine [Presence] in Urineon 04-20-2024 Buprenorphine Ql (U) Buprenorphine [Pres ence] in Urine NEGATIVE [facility] Comment on above: DRUG CLASS TEST SYST EM CUT-OFF CONCENTRATIONS ARE ASFOLLOWS:AMP (Amphetamine): 500 ng/mLBAR (Barbiturates): 200 ng/mLBZO (Benzodiazepines): 150 ng/mLBUP (Buprenorphine): 10 ng/mLCOC (Cocaine): 150 ng/mLmAMP (Methamphetamine): 500 ng/mLMTD (Methadone): 200 ng/mLOPI (Opiates): 100 ng/mLOXY (Oxycodone): 100 ng/mLPCP (Phencyclidine): 25 ng/mLTHC (Cannabinoids): 50 ng/mLTCA (Trycyclic Antidepressants): 300 ng/mL C reactive protein [Mass/vol ume] in Serum or PlasmaOrdered By: Timi Ferguson on 04-20-2024 CRP [Mass/Vol] C reactive protein [Mass/volume] in Serum or Plasma High 0.0-0.5 [facility] C-Reactive Proteinon 025 C-Reactive Protein 3.1 mg/dL High 0.0-0.5 [facility] Comment on above: Order Comment: label s and tubes given to WILIAM WATSON 1704 Result Comment: PERF ORMED BY: [facility] [address] [place] [address] PATHOLOGIST ON CALL PHARMACY TECHNICIAN HALLE AVALOS M.D. Performed By: #### H BCAB, HEPACUTE, HBSAB #### [facility] , Calcium [Mass/volume] in Ser um or PlasmaOrdered By: Timi Ferguson on 04-20-2024 Calcium [Mass/Vol] Calcium [Mass/volume ] in Serum or Plasma 8.6-10.3 [facility] Carbon dioxide, total [Moles /volume] in Serum or PlasmaOrdered By: Timi Ferguson on 04-20-2024 CO2 [Moles/Vol] Carbon dioxide, tota l [Moles/volume] in Serum or Plasma 21.0-31.0 [facility] Chloride [Moles/volume] in S pilar or PlasmaOrdered By: Timi Ferguson on 04-20-2024 Chloride [Moles/Vol] Chloride [Moles/vol ume] in Serum or Plasma Low 98-107 [facility] Complement C3on 04-20-2024 Complement C3 123 mg/dL Normal 82-167 [facility] Comment on above: Result Comment: Perf ormed at: - [facility] [address] [id number] Juice Tester: Ta Norris PhD, Phone: [phone] Performed By: #### H BCAB, HEPACUTE, HBSAB #### [facility] , Complement C4on 04-20-2024 Complement C4 21 mg/dL Normal 12-38 [facility] Comment on above: Performed By: #### H BCAB, HEPACUTE, HBSAB #### [facility] , Complete Blood Count Auto Di ffon 04-20-2024 Basophils (Bld) [#/Vol] 0.0 10*3/uL Normal 0.0-0.2 [facility] Comment on above: Order Comment: label s and tubes given to WILIAM gautam AB 1704 Performed By: #### H BCAB, HEPACUTE, HBSAB #### [facility] , Basophils/100 WBC (Bld) 0.9 % Normal . [facility] Comment on above: Order Comment: label s and tubes given to WILIAM gautam AB 1704 Performed By: #### H BCAB, HEPACUTE, HBSAB #### [facility] , Eosinophils (Bld) [#/Vol] 0.1 10*3/uL Normal 0.0-0.45 [facility] Comment on above: Order Comment: label s and tubes given to WILIAM gautam AB 1704 Performed By: #### H BCAB, HEPACUTE, HBSAB #### [facility] , Eosinophils/100 WBC (Bld) 1.2 % Normal . [facility] Comment on above: Order Comment: label s and tubes given to WILIAM Cordova Performed By: #### H BCAB, HEPACUTE, HBSAB #### [facility] , Erythrocyte distribution width (RBC) [Ratio] 15.0 % High 12.0-14.8 [facility] Comment on above: Order Comment: label s and tubes given to WILIAM Cordova Performed By: #### H BCAB, HEPACUTE, HBSAB #### [facility] , Hematocrit (Bld) [Volume fraction] 31.7 % Low 38.8-50.0 [facility] Comment on above: Order Comment: label s and tubes given to WILIAM Cordova Performed By: #### H BCAB, HEPACUTE, HBSAB #### [facility] , Hemoglobin (Bld) [Mass/Vol] 10.8 g/dL Low 13.0-17.0 [facility] Comment on above: Order Comment: label s and tubes given to WILIAM Cordova Performed By: #### H BCAB, HEPACUTE, HBSAB #### [facility] , Lymphocytes (Bld) [#/Vol] 0.7 10*3/uL Low 1.00-4.8 [facility] Comment on above: Order Comment: label s and tubes given to WILIAM Cordova Performed By: #### H BCAB, HEPACUTE, HBSAB #### [facility] , Lymphocytes/100 WBC (Bld) 13.1 % Normal . [facility] Comment on above: Order Comment: label s and tubes given to WILIAM Cordova Performed By: #### H BCAB, HEPACUTE, HBSAB #### [facility] , MCH (RBC) [Entitic mass] 27.8 pg Normal 27.5-35.2 [facility] Comment on above: Order Comment: label s and tubes given to WILIAM gautam AB 1704 Performed By: #### H BCAB, HEPACUTE, HBSAB #### [facility] , MCV (RBC) [Entitic vol] 81.6 fL Low 83.5-101 [facility] Comment on above: Order Comment: label s and tubes given to WILIAM gautam AB 1704 Performed By: #### H BCAB, HEPACUTE, HBSAB #### [facility] , Mean Corpuscular HGB Conc 34.1 g/dL Normal 32.5-35.6 [facility] Comment on above: Order Comment: label s and tubes given to WILIAM gautam AB 1704 Performed By: #### H BCAB, HEPACUTE, HBSAB #### [facility] , Monocytes (Bld) [#/Vol] 0.2 10*3/uL Normal 0.0-0.8 [facility] Comment on above: Order Comment: label s and tubes given to WILIAM WATSON 1704 Performed By: #### H BCAB, HEPACUTE, HBSAB #### [facility] , Monocytes/100 WBC (Bld) 4.7 % Normal . [facility] Comment on above: Order Comment: label s and tubes given to WILIAM gautam AB 1704 Performed By: #### H BCAB, HEPACUTE, HBSAB #### [facility] , Neutrophils (Bld) [#/Vol] 4.0 10*3/uL Normal 1.8-7.7 [facility] Comment on above: Order Comment: label s and tubes given to WILIAM gautam AB 1704 Performed By: #### H BCAB, HEPACUTE, HBSAB #### [facility] , Neutrophils/100 WBC (Bld) 80.1 % Normal . [facility] Comment on above: Order Comment: label s and tubes given to WILIAM gautam AB 1704 Performed By: #### H BCAB, HEPACUTE, HBSAB #### [facility] , NRBC% 0.0 /100{WBC} Normal 0-0.5 [facility] Comment on above: Order Comment: label s and tubes given to WILIAM gautam AB 1704 Performed By: #### H BCAB, HEPACUTE, HBSAB #### [facility] , Platelet mean volume (Bld) [Entitic vol] 8.4 fL Normal 6.6-10.1 [facility] Comment on above: Order Comment: label s and tubes given to WILIAM gautam AB 1704 Performed By: #### H BCAB, HEPACUTE, HBSAB #### [facility] , Platelets (Bld) [#/Vol] 329 10*3/uL Normal 150-450 [facility] Comment on above: Order Comment: label s and tubes given to WILIAM gautam AB 1704 Performed By: #### H BCAB, HEPACUTE, HBSAB #### [facility] , RBC (Bld) [#/Vol] 3.89 10*6/uL Low 3.90-5.60 [facility] Comment on above: Order Comment: label s and tubes given to WILIAM WATSON 170Jana Performed By: #### H BCAB, HEPACUTE, HBSAB #### [facility] , WBC (Bld) [#/Vol] 5.0 10*3/uL Normal 4.1-10.5 [facility] Comment on above: Order Comment: label s and tubes given to WILIAM WATSON 1704 Performed By: #### H BCAB, HEPACUTE, HBSAB #### [facility] , Confirmatory hepatitis B vir us surface antigen assayOrdered By: Ben Bravo on 04-20-2024 HBV surface Ag Confirm Ql Confirmatory hepatitis B virus surface antigen assay Abnormal . [facility] Comment on above: Result confirmed by neutralization. Creatine Kinaseon 04-20-2024 CK [Catalytic activity/Vol] 452 U/L High 30-223 [facility] Comment on above: Order Comment: CAN'T DRAW 37 READ AND BLUE TOP HE'S BEING HEPERNIZED Result Comment: PERF ORMED BY: [facility] [address] [place] [address] PATHOLOGIST ON CALL PHARMACY TECHNICIAN HALLE AVALOS M.D. Performed By: #### C K #### [facility] [address] Creatine kinase [Enzymatic a ctivity/volume] in Serum or PlasmaOrdered By: Timi Ferguson on 04-20-2024 CK [Catalytic activity/Vol] Creatine kinase [Enzymatic activity/volume] in Serum or Plasma High 30-223 [facility] Creatinine [Mass/volume] in Serum or PlasmaOrdered By: Timi Ferguson on 04-20-2024 Creatinine [Mass/Vol] Creatinine [Mass/v olume] in Serum or Plasma High 0.70-1.30 [facility] Diagnostic impression interp retation by molecular genetics method narrativeOrdered By: Ben Bravo on 04-20-2024 Diagnostic impression Molgen Tang (Unsp spec) [Interp] Diagnostic impression [Interpretation] in Specimen Narrative . [facility] Comment on above: Positive HCV antibod y screen without the presence of HCVRNA is consistent with a resolved past infection or a falsepositive HCV antibody. Consider repeat testing after onemonth.Performed at: [facility] [id number] Director: Ta Norris PhD, Phone: [phone] at: [facility] [address] [id number] Director: Alexys Cooper MD, Phone: [phone] Eosinophils Auto (Bld) [#/Vo l]Ordered By: Timi Ferguson on 04-20-2024 Eosinophils (Bld) [#/Vol] Automated eosinophil count 0.0-0.45 [facility] Eosinophils/100 WBC Auto (Bl d)Ordered By: Timi Ferguson on 04-20-2024 Eosinophils/100 WBC (Bld) Automated eosinophil % . [facility] Eosinophils/100 WBC Auto (Bl d)on 04-20-2024 Eosinophils/100 WBC (Bld) Automated eosinophil % 0.9-7.0 [facility] Erythrocyte Sedimentation Ra marie 04-20-2024 ESR (Bld) [Velocity] 22 mm/h High 0-14 [facility] Comment on above: Order Comment: label s and tubes given to WILIAM WATSON 2124 Result Comment: PERF ORMED BY: [address] [place] [address] PATHOLOGIST ON CALL PHARMACY TECHNICIAN HALLE AVALOS M.D. Performed By: #### H BCAB, HEPACUTE, HBSAB #### [facility] , Erythrocyte distribution wid th Auto (RBC) [Ratio]Ordered By: Timi Ferguson on 04-20-2024 Erythrocyte distribution width (RBC) [Ratio] Erythrocyte distribution width [Ratio] by Automated count High 12.0-14.8 [facility] Erythrocyte distribution wid th Auto (RBC) [Ratio]on 04-20-2024 Erythrocyte distribution width (RBC) [Ratio] Erythrocyte distribution width [Ratio] by Automated count 11.0-15.0 [facility] Erythrocyte sedimentation ra te by Photometric methodOrdered By: Timi Ferguson on 04-20-2024 ESR Photometric method (Bld) [Velocity] Erythrocyte sedimentation rate by Photometric method High 0-14 [facility] Estimated glomerular filtrat ion rate (GFR) non- Americanon 04-20-2024 GFR/1.73 sq M.predicted among non-blacks MDRD (S/P/Bld) [Vol rate/Area] Estimated glomerular filtration rate (GFR) non- Low >=60 mL/min/1.73m 2 [facility] Free K+L LT Chains, Qn, Son 04-20-2024 Free [place] Light Chains, S 44.0 mg/L High 3.3-19.4 [facility] Comment on above: Performed By: #### A HOSSEIN BAI #### [facility] [address] [place] [address] Free Lambda Light Chains, S 34.0 mg/L High 5.7-26.3 [facility] Comment on above: Performed By: #### A HOSSEIN BAI #### [facility] [address] [place] [address] [place]/Lambda Ratio, S 1.29 Normal 0.26-1.65 [facility] Comment on above: Result Comment: Perf ormed at: CB - [facility] [address] [id number] Juice Tester: Ta Norris PhD, Phone: [phone] PERFORMED BY: [place] [address] PATHOLOGIST ON CALL PHARMACY TECHNICIAN HALLE AVALOS M.D. Performed By: #### A RICHARDSON, #### [address] Globulin Calc (S) [Mass/Vol] Ordered By: Timi Ferguson on 04-20-2024 Globulin (S) [Mass/Vol] Serum globulin measurement by calculation (mass/volume) [facility] Globulin Calc (S) [Mass/Vol] on 04-20-2024 Globulin (S) [Mass/Vol] Serum globulin measurement by calculation (mass/volume) [facility] Glomerular basement membrane Ab [Units/volume] in Serum by ImmunoassayOrdered By: Ben Bravo on 04-20-2024 Glomerular basement membrane Ab IA Qn (S) Glomerular basement membrane Ab [Units/volume] in Serum by Immunoassay 0.0-0.9 [facility] Comment on above: Performed at: [facility] - [facility] [address] [id number] Director: Alexys Cooper MD, Phone: [phone] Glucose [Mass/volume] in Ser um or PlasmaOrdered By: Timi Ferguson on 04-20-2024 Glucose [Mass/Vol] Glucose [Mass/volume ] in Serum or Plasma 70-100 [facility] Comment on above: ADA recommended refe rence rangeRandom Glucose Reference Range is dependent on time and content of last meal. Glucose of more than 200 mg/dL in a nonstressed, ambulatory subject supports the diagnosis of Diabetes Mellitus. Hematocrit Auto (Bld) [Volum e fraction]Ordered By: Timi Ferguson on 04-20-2024 Hematocrit (Bld) [Volume fraction] Hematocrit [Volume Fraction] of Blood by Automated count Low 38.8-50.0 [facility] Hematocrit Auto (Bld) [Volum e fraction]on 04-20-2024 Hematocrit (Bld) [Volume fraction] Hematocrit [Volume Fraction] of Blood by Automated count Low 42.0-54.0 [facility] Hemoglobin A1c/Hemoglobin.to kailash in BloodOrdered By: Timi Ferguson on 04-20-2024 HbA1c (Bld) [Mass fraction] Hemoglobin A1c percentage 4.3-5.6 [facility] Comment on above: Increased risk for d iabetes: 5.7 - 6.4diabetes: >6.4glycemic control for adults with diabetes: <7.0 Hemoglobin [Mass/volume] in BloodOrdered By: Timi Ferguson on 04-20-2024 Hemoglobin (Bld) [Mass/Vol] Hemoglobin [Mass/volume] in Blood Low 13.0-17.0 [facility] Hemoglobin [Mass/volume] in Bloodon 04-20-2024 Hemoglobin (Bld) [Mass/Vol] Hemoglobin [Mass/volume] in Blood Low 14.0-18.0 [facility] Hepatic Panelon 04-20-2024 Albumin [Mass/Vol] 3.4 g/dL Low 3.5-5.7 [facility] Comment on above: Order Comment: CAN'T DRAW 37 READ AND BLUE TOP HE'S BEING HEPERNIZED Performed By: #### B MP #### [facility] [address] Albumin/Globulin [Mass ratio] 1.4 {ratio} Normal [facility] Comment on above: Order Comment: CAN'T DRAW 37 READ AND BLUE TOP HE'S BEING HEPERNIZED Performed By: #### B MP #### [facility] [address] [place] [id number] [place] ALP [Catalytic activity/Vol] 41 U/L Normal 34-104 [facility] Comment on above: Order Comment: CAN'T DRAW 37 READ AND BLUE TOP HE'S BEING HEPERNIZED Performed By: #### B MP #### [facility] [address] [place] [id number] [place] ALT [Catalytic activity/Vol] 115 U/L High 7-52 [facility] Comment on above: Order Comment: CAN'T DRAW 37 READ AND BLUE TOP HE'S BEING HEPERNIZED Performed By: #### B MP #### [address] AST [Catalytic activity/Vol] 30 U/L Normal 13-39 [facility] Comment on above: Order Comment: CAN'T DRAW 37 READ AND BLUE TOP HE'S BEING HEPERNIZED Performed By: #### B MP #### [address] Bilirubin [Mass/Vol] 0.3 mg/dL Normal 0.3-1.0 [facility] Comment on above: Order Comment: CAN'T DRAW 37 READ AND BLUE TOP HE'S BEING HEPERNIZED Performed By: #### B MP #### [address] Bilirubin,Indirect 0.3 mg/dL Normal [facility] Comment on above: Order Comment: CAN'T DRAW 37 READ AND BLUE TOP HE'S BEING HEPERNIZED Performed By: #### B MP #### [address] Bilirubin.indirect [Mass/Vol] 0.00 mg/dL Low 0.03-0.18 [facility] Comment on above: Order Comment: CAN'T DRAW 37 READ AND BLUE TOP HE'S BEING HEPERNIZED Result Comment: If t he DBIL is less than 0.1, IBIL is not able to be calculated. Performed By: #### B MP #### [address] Globulin (S) [Mass/Vol] 2.4 g/dL Normal T he [facility] Comment on above: Order Comment: CAN'T DRAW 37 READ AND BLUE TOP HE'S BEING HEPERNIZED Performed By: #### B MP #### [address] Protein [Mass/Vol] 5.8 g/dL Low 6.4-8.9 [facility] Comment on above: Order Comment: CAN'T DRAW 37 READ AND BLUE TOP HE'S BEING HEPERNIZED Performed By: #### B MP #### [facility] [address] Hepatitis A virus IgM antibo dy assayOrdered By: Ben Bravo on 04-20-2024 Hepatitis A IgM Antibody Negative Negative [facility] Comment on above: A negative anti-HAV IgM result suggests no recent orcurrent HAV infection. Hepatitis Acute Panelon 04-02 HBsAg Confirmation Positive Critically abnormal . [facility] Comment on above: Order Comment: label s and tubes given to RN dain AB 1704 Result Comment: Resu lt confirmed by neutralization. Performed By: #### H BCAB, HEPACUTE, HBSAB #### [facility] , HBsAg Screen Confirm. indicated Normal Negative [facility] Comment on above: Order Comment: label s and tubes given to RN dain AB 1704 Performed By: #### H BCAB, HEPACUTE, HBSAB #### [facility] , Hepatitis A Antibody IgM Negative Normal Negative [facility] Comment on above: Order Comment: label s and tubes given to RN dain AB 1704 Result Comment: A ne gative anti-HAV IgM result suggests no recent or current HAV infection. Performed By: #### H BCAB, HEPACUTE, HBSAB #### [facility] , Hepatitis B Core Antibody IgM Negative Normal Negative [facility] Comment on above: Order Comment: label s and tubes given to RN dain AB 1704 Performed By: #### H BCAB, HEPACUTE, HBSAB #### [facility] , Hepatitis C Quantitation Not detected Normal . [facility] Comment on above: Order Comment: label s and tubes given to RN dain AB 1704 Performed By: #### H BCAB, HEPACUTE, HBSAB #### [facility] , Hepatitis C Virus Antibody Reactive Critically abnormal Non Reactive [facility] Comment on above: Order Comment: label s and tubes given to RN dain AB 1704 Performed By: #### H BCAB, HEPACUTE, HBSAB #### [facility] , Interpretation Comment Normal . [facility] Comment on above: Order Comment: label s and tubes given to RN dain AB 1704 Result Comment: Posi tive HCV antibody screen without the presence of HCV RNA is consistent with a resolved past infection or a false positive HCV antibody. Consider repeat testing after one month. Performed at: [address] [id number] Juice Tester: Ta Norris PhD, Phone: [phone] Performed at: [address] [id number] Juice Tester: Alexys Cooper MD, Phone: [phone] Performed By: #### H BCAB, HEPACUTE, HBSAB #### [facility] , Test Information: Comment Normal . [facility] Comment on above: Order Comment: label s and tubes given to RN dain AB 1704 Result Comment: The quantitative range of this assay is 15 IU/mL to 100 million IU/mL. Performed By: #### H BCAB, HEPACUTE, HBSAB #### [facility] , Hepatitis B Core Antibodyon 04-20-2024 Hepatitis B Core Antibody Positive Critically abnormal Negative [facility] Comment on above: Order Comment: label s and tubes given to RN dain AB 1704 Result Comment: Perf ormed at: [address] [id number] Juice Tester: Ta Norris PhD, Phone: [phone] PERFORMED BY: [place] [id number] PATHOLOGIST ON CALL PHARMACY TECHNICIAN HALLE AVALOS M.D. Performed By: #### H BCAB, HEPACUTE, HBSAB #### [facility] , Hepatitis B Surface Antibody on 04-20-2024 Hepatitis B Surface Antibody Non-Reactive Normal . [facility] Comment on above: Order Comment: label s and tubes given to RN dain AB 1704 Result Comment: Non Reactive: Not immune to HBV infection. Equivocal: Unable to determine if anti-HBs is present at levels consistent with immunity. Reactive: Anti-HBs concentration detected at greater than 10 mIU/mL. Individual is considered to be immune to infection with HBV. Performed By: #### H BCAB, HEPACUTE, HBSAB #### [facility] , Hepatitis B virus core IgM a ntibody assayOrdered By: Ben Bravo on 04-20-2024 Hepatitis B Core IgM Antibody Negative Negative [facility] Hepatitis B virus core antib ghassan assayOrdered By: Ben Bravo on 04-20-2024 Hepatitis B Core Total Antibody Positive Abnormal Negative [facility] Comment on above: Performed at: [facility] [place] [id number] Director: Ta Norris PhD, Phone: [phone] Hepatitis C virus IgG Ab [Pr esence] in Serum or Plasma by ImmunoassayOrdered By: Ben Bravo on 04-20-2024 HCV IgG IA Ql Hepatitis C virus Ig G Ab [Presence] in Serum or Plasma by Immunoassay Abnormal Non Reactive [facility] INR in Platelet poor plasma by Coagulation assayOrdered By: Timi Ferguson on 04-20-2024 INR Coag (PPP) [Relative time] INR in Platelet poor plasma by Coagulation assay [facility] Comment on above: INR Therapeutic Rang e A) Pre- and Peroperative OAT started two weeks before surgery. NOT HIP SURGERY: 1.5 - 2.5 HIP SURGERY: 2 - 3B) Primary and secondary prevention of venous THROMBOSIS: 2 - 3C) Active venous thrombosis, pulmonary embolismand prevention of recurrent venous thrombosis: 2 - 3D) Prevention of arterial thromboembolismincluding patients with mechanical heart valves: 3 - 4.5 Immunofixation,Serumon 04-20 Immunofixation, Serum Comment: Normal . [facility] Comment on above: Result Comment: Pres ence of monoclonal protein is unclear at this time. Suggest repeat in 3 to 6 months if clinically indicated. Performed By: #### H BCAB, HEPACUTE, HBSAB #### [facility] , Immunoglobulin A, Serum 203 mg/dL Normal 90-386 T [facility] Comment on above: Performed By: #### H BCAB, HEPACUTE, HBSAB #### [facility] , Immunoglobulin G 831 mg/dL Normal 603-1613 [facility] Comment on above: Performed By: #### H BCAB, HEPACUTE, HBSAB #### [facility] , Immunoglobulin M, Serum 134 mg/dL Normal 20-172 [facility] Comment on above: Result Comment: Perf ormed at: CB - [facility] [address] [id number] Juice Tester: Ta Norris PhD, Phone: [phone] Performed By: #### H BCAB, HEPACUTE, HBSAB #### [facility] , Laboratory - Chemistry and C hemistry - challengeon 04-20-2024 Bilirubin Ql (U) Negative NEGATIVE [facility] Glucose (U) [Mass/Vol] Negative NEGATIVE [facility] Ketones Ql (U) Negative NEGATIVE [facility] pH (U) 6.0 [pH] 5.0-9.0 [facility] Specific gravity (U) [Rel density] <=1.005 Abnormal 1.005-1.025 [facility] Urobilinogen Qn (U) 0.2 {Bia'U}/dL 0.2-1.0 [facility] CK [Catalytic activity/Vol] 742 U/L Critically high 39-308 [facility] Comment on above: RESULTS CALLED TO CHASITY RODRIGUEZ M.D. Albumin [Mass/Vol] 3.3 g/dL Low 3.4-5.0 [facility] ALP [Catalytic activity/Vol] 60 U/L 46-116 [facility] ALT [Catalytic activity/Vol] 206 U/L High 16-63 [facility] AST [Catalytic activity/Vol] 52 U/L High 15-37 [facility] Bilirubin [Mass/Vol] 0.4 mg/dL 0.2-1.0 [facility] Bilirubin.direct [Mass/Vol] 0.1 mg/dL 0.0-0.2 [facility] Calcium [Mass/Vol] 9.3 mg/dL 8.5-10.1 [facility] Chloride [Moles/Vol] 97 mmol/L Low 98-107 [facility] CO2 [Moles/Vol] 14.0 mmol/L Low 21.0-32.0 [facility] Creatinine [Mass/Vol] 20.15 mg/dL Critically high 0.70-1.3 0 [facility] Comment on above: RESULTS CALLED TO CASSIUS JOVEL RN GFR/1.73 sq M.predicted MDRD (S/P/Bld) [Vol rate/Area] 3 mL/min/{1.73_m2} Low >=60 mL/min/1.73m 2 [facility] Glucose [Mass/Vol] 82 mg/dL 74-106 [facility] Lipase [Catalytic activity/Vol] 16.0 U/L 16.0-77.0 [facility] Potassium [Moles/Vol] 6.7 mmol/L Critically high 3.5-5.1 [facility] Comment on above: RESULTS CALLED TO CASSIUS JOVEL RN Protein [Mass/Vol] 7.1 g/dL 6.4-8.2 [facility] Sodium [Moles/Vol] 135 mmol/L Low 136-145 [facility] Urea nitrogen [Mass/Vol] 176.0 mg/dL Critically high 7.0-18.0 [facility] Comment on above: RESULTS CALLED TO CASSIUS JOVEL RN Urea nitrogen/Creatinine [Mass ratio] 8.7 mg/mg [facility] Laboratory - Drug toxicology on 04-20-2024 Amphetamines Ql (U) Positive Abnormal NEGATIVE [facility] Benzodiazepines Ql (U) Negative NEGATIVE [facility] Cocaine Ql (U) Negative NEGATIVE [facility] Opiates Ql (U) Negative NEGATIVE [facility] Phencyclidine Ql (U) Negative NEGATIVE [facility] Laboratory - Hematology and Cell countson 04-20-2024 Immature granulocytes/100 WBC (Bld) 0.6 % High 0.0-0.5 [facility] Laboratory - Specimen inform ationon 04-20-2024 Appearance (U) CLEAR CLEAR [facility] Color (U) LT. YELLOW YELLOW [facility] Laboratory - Urinalysison Leukocyte esterase Test strip Ql (U) MODERATE Abnormal NEGATIVE [facility] Mucus Ql (Urine sed) NONE SEEN NONE SEEN [facility] Nitrite Ql (U) Negative NEGATIVE [facility] Protein Ql (U) TRACE mg/dL NEG/TRACE [facility] Leukocytes [#/volume] correc paul for nucleated erythrocytes in Blood by Automated counOrdered By: Timi Ferguson on 04-20-2024 WBC corrected for nucl RBC Auto (Bld) [#/Vol] Leukocytes [#/volume] corrected for nucleated erythrocytes in Blood by Automated coun 4.1-10.5 [facility] Leukocytes [#/volume] correc paul for nucleated erythrocytes in Blood by Automated counon 04-20-2024 WBC corrected for nucl RBC Auto (Bld) [#/Vol] Leukocytes [#/volume] corrected for nucleated erythrocytes in Blood by Automated coun 4.0-11.0 [facility] Lymphocytes Auto (Bld) [#/Vo l]Ordered By: Timi Ferguson on 04-20-2024 Lymphocytes (Bld) [#/Vol] Lymphocytes [#/volume] in Blood by Automated count Low 1.00-4.8 [facility] Lymphocytes Auto (Bld) [#/Vo l]on 04-20-2024 Lymphocytes (Bld) [#/Vol] Lymphocytes [#/volume] in Blood by Automated count Low 1.2-3.8 [facility] Lymphocytes/100 WBC Auto (Bl d)Ordered By: Timi Ferguson on 04-20-2024 Lymphocytes/100 WBC (Bld) Lymphocytes/100 leukocytes in Blood by Automated count . [facility] Lymphocytes/100 WBC Auto (Bl d)on 04-20-2024 Lymphocytes/100 WBC (Bld) Lymphocytes/100 leukocytes in Blood by Automated count Low 20.5-60.0 [facility] MCH Auto (RBC) [Entitic mass ]Ordered By: Timi Ferguson on 04-20-2024 MCH (RBC) [Entitic mass] MCH [Entitic mass] by Automated count 27.5-35.2 [facility] MCH Auto (RBC) [Entitic mass ]on 04-20-2024 MCH (RBC) [Entitic mass] MCH [Entitic mass] by Automated count 25.9-34.0 [facility] MCHC Auto (RBC) [Mass/Vol]Or dered By: Timi Ferguson on 04-20-2024 MCHC (RBC) [Mass/Vol] MCHC [Mass/volume] by Automated count 32.5-35.6 [facility] MCHC Auto (RBC) [Mass/Vol]on 04-20-2024 MCHC (RBC) [Mass/Vol] MCHC [Mass/volume] by Automated count 29.9-35.2 [facility] MCV Auto (RBC) [Entitic vol] Ordered By: Timi Ferguson on 04-20-2024 MCV (RBC) [Entitic vol] MCV [Entitic vol ume] by Automated count Low 83.5-101 [facility] MCV Auto (RBC) [Entitic vol] on 04-20-2024 MCV (RBC) [Entitic vol] MCV [Entitic vol ume] by Automated count 80.0-94.0 [facility] Magnesiumon 04-20-2024 Magnesium [Mass/Vol] 2.6 mg/dL Normal 1.9-2.7 [facility] Comment on above: Order Comment: label s and tubes given to WILIAM WATSON 1704 Performed By: #### H BCAB, HEPACUTE, HBSAB #### [facility] , Magnesium [Mass/volume] in S pilar or PlasmaOrdered By: Timi Ferguson on 04-20-2024 Magnesium [Mass/Vol] Magnesium [Mass/vol ume] in Serum or Plasma 1.9-2.7 [facility] Methadone [Presence] in Urin e by Screen methodon 04-20-2024 Methadone Screen Ql (U) Methadone [Prese nce] in Urine by Screen method Abnormal NEGATIVE [facility] Monocytes Auto (Bld) [#/Vol] Ordered By: Timi Ferguson on 04-20-2024 Monocytes (Bld) [#/Vol] Automated blood monocyte count 0.0-0.8 [facility] Monocytes Auto (Bld) [#/Vol] on 04-20-2024 Monocytes (Bld) [#/Vol] Automated blood monocyte count 0.3-0.8 [facility] Monocytes/100 WBC Auto (Bld) Ordered By: Timi Ferguson on 04-20-2024 Monocytes/100 WBC (Bld) Automated monocyte % . [facility] Monocytes/100 WBC Auto (Bld) on 04-20-2024 Monocytes/100 WBC (Bld) Automated monocyte % 1. 7-12.0 [facility] Myeloperoxidase Ab [Units/vo lume] in Serum by ImmunoassayOrdered By: Ben Bravo on 04-20-2024 Myeloperoxidase Ab IA Qn (S) Myeloperoxidase Ab [Units/volume] in Serum by Immunoassay 0.0-0.9 [facility] Neutrophils Auto (Bld) [#/Vo l]Ordered By: Timi Ferguson on 04-20-2024 Neutrophils (Bld) [#/Vol] Neutrophils [#/volume] in Blood by Automated count 1.8-7.7 [facility] Neutrophils Auto (Bld) [#/Vo l]on 04-20-2024 Neutrophils (Bld) [#/Vol] Neutrophils [#/volume] in Blood by Automated count 1.4-6.5 [facility] Neutrophils/100 WBC Auto (Bl d)Ordered By: Timi Ferguson on 04-20-2024 Neutrophils/100 WBC (Bld) Automated neutrophil % . [facility] Neutrophils/100 WBC Auto (Bl d)on 04-20-2024 Neutrophils/100 WBC (Bld) Automated neutrophil % High 43.0-75.0 [facility] No Panel InformationOrdered By: Timi Ferguson on 04-20-2024 Estimated GFR (CKD-EPI) 3.734 mL/Min [facility] Pharmacy Creatinine Clearance (Chem 6.14 [facility] No Panel InformationOrdered By: Ben Bravo on 04-20-2024 Hepatitis C RNA Qnt (PCR) Test Info Comment . [facility] Comment on above: The quantitative ran ge of this assay is 15 IU/mL to 100million IU/mL. Protein Electrophoresis M-Yong Not observed g/dL Not Observed [facility] Protein Electrophoresis Note Comment . [facility] Comment on above: Protein electrophore sis scan will follow via computer,mail, or salesperson flying squad delivery.Performed at: - [facility] [place] [id number] [place], [place] [id number] Director: Ta Norris PhD, Phone: [phone] No Panel Informationon 04-20 Urine Bacteria SMALL #/HPF Abnormal NONE SEEN [facility] Urine Barbiturates Screen Negative NEGATIVE [facility] Urine Culture Reflexed YES-[facility] Urine Marijuana (THC) Screen Negative NEGATIVE [facility] Urine Methamphetamines Screen Negative NEGATIVE [facility] Urine Microscopic Review YES [facility] Urine Occult Blood LARGE Abnormal NEGATIVE [facility] Urine Other Casts NONE SEEN #/LPF NONE SEEN [facility] Urine Other Crystals None Seen #/HPF None Seen [facility] Urine RBC 5-10 #/HPF Abnormal 0-2 [facility] Urine Squamous Epithelial Cells FEW #/LPF Abnormal NONE/RARE [facility] Urine WBC 10-20 #/HPF Abnormal NONE SEEN [facility] Ethyl Alcohol Level <3 mg/dL [facility] Comment on above: NOTE: 80 mg/dl is th e legal limit for a blood alcohol level Troponin I High Sensitivity 7.1 pg/mL 4.0-76.1 [facility] Comment on above: CUT-OFF POINTS HAVE BEEN ESTABLISHED BASED ON THE FOURTHUNIVERSAL DEFINITION OF MYOCARDIAL INFARCTION. THE UPPERREFERENCE LIMIT (URL) OF TROPONIN, DEFINED THE 99THPERCENTILE OF cTnI DISTRIBUTION IN A REFERENCE POPULATION,HAS BEEN CONFIRMED THE DECISION THRESHOLD FOR MIDIAGNOSIS.99TH PERCENTILE = 76.2 PG/MLNOTE: HIGH-SENSITIVITY TROPONIN ASSAY IS NOT INTENDED TO BEUSED IN ISOLATION BUT SHOULD BE INTERPRETED IN CONJUNCTIONWITH OTHER DIAGNOSTIC AND CLINICAL INFORMATION. Eosinophils # (Auto) 0.1 10 3/uL 0.0-0.7 [facility] Immature Granulocyte # (Auto) 0.05 10 3/uL High 0.00-0.03 [facility] Nucleated erythrocytes [Pres ence] in Blood by Automated countOrdered By: Timi Ferguson on 04-20-2024 Nucleated RBC Auto Ql (Bld) Nucleated erythrocytes [Presence] in Blood by Automated count 0-0.5 [facility] Partial Thromboplastin Timeo n 04-20-2024 aPTT Coag (Bld) [Time] 29.5 s Normal 25.1-36.5 [facility] e [facility] Comment on above: Order Comment: CAN'T DRAW 37 READ AND BLUE TOP HE'S BEING HEPERNIZED Result Comment: A he matocrit value greater than 55% may lead to inaccurate results in coagulation testing. Patients having hematocrit values >55% require a special collection tube for coagulation studies. Please contact the laboratory at [phone] for redraw instructions. PERFORMED BY: [place] [address] PATHOLOGIST ON CALL PHARMACY TECHNICIAN HALLE AVALOS M.D. Performed By: #### P TT, PT #### [address] Perinuclear antineutrophil c ytoplasmic antibody (p-ANCA) assayOrdered By: Ben Bravo on 04-20-2024 Perinuclear ANCA (p-ANCA) Antibody <1:20 titer Neg:<1:20 [facility] Comment on above: The presence of posi tive fluorescence exhibiting P-ANCA orC-ANCA patterns alone is not specific for the diagnosis ofWegener's Granulomatosis (WG) or microscopic polyangiitis.Decisions about treatment should not be based solely onANCA IFA results. The International ANCA Group Consensusrecommends follow up testing of positive sera with both MN-3 and MPO-ANCA enzyme immunoassays. As many as 5% serumsamples are positive only by EIA. Ref. AM J Clin Shjepo9732;111:507-513. Phosphate [Mass/volume] in S pilar or PlasmaOrdered By: Timi Ferguson on 04-20-2024 Phosphate [Mass/Vol] Phosphate [Mass/vol ume] in Serum or Plasma High 2.5-4.5 [facility] Phosphatidylethanolon 2024 Phosphatidylethanol Normal [facility] Comment on above: Order Comment: label s and tubes given to WILIAM gautam AB 1704 Result Comment: See report. Scanned copy available in EMR. PERFORMED BY: [facility] [place] [address] PATHOLOGIST ON CALL PHARMACY TECHNICIAN HALLE AVALOS M.D. Performed By: #### H BCAB, HEPACUTE, HBSAB #### [facility] , Phosphoruson 04-20-2024 Phosphate [Mass/Vol] 6.1 mg/dL High 2.5-4.5 [facility] Comment on above: Order Comment: label s and tubes given to WILIAM gautam AB 1704 Performed By: #### H BCAB, HEPACUTE, HBSAB #### [facility] , Platelet mean volume Auto (B ld) [Entitic vol]Ordered By: Timi Ferguson on 04-20-2024 Platelet mean volume (Bld) [Entitic vol] Platelet mean volume [Entitic volume] in Blood by Automated count 6.6-10.1 [facility] Platelet mean volume Auto (B ld) [Entitic vol]on 04-20-2024 Platelet mean volume (Bld) [Entitic vol] Platelet mean volume [Entitic volume] in Blood by Automated count 9.5-13.5 [facility] Platelets Auto (Bld) [#/Vol] Ordered By: Timi Ferguson on 04-20-2024 Platelets (Bld) [#/Vol] Platelets [#/vol ume] in Blood by Automated count 150-450 [facility] Platelets Auto (Bld) [#/Vol] on 04-20-2024 Platelets (Bld) [#/Vol] Platelets [#/vol ume] in Blood by Automated count 150-450 [facility] Potassium [Moles/volume] in Serum or PlasmaOrdered By: Timi Ferguson on 04-20-2024 Potassium [Moles/Vol] Potassium [Moles/v olume] in Serum or Plasma High 3.5-5.1 [facility] Protein Electrophoresis, Ser umon 04-20-2024 Albumin [Mass/Vol] 3.1 g/dL Normal 2.9-4.4 [facility] Comment on above: Performed By: #### H BCAB, HEPACUTE, HBSAB #### [facility] , Albumin/Globulin [Mass ratio] 1.2 {ratio} Normal 0.7-1.7 [facility] Comment on above: Performed By: #### H BCAB, HEPACUTE, HBSAB #### [facility] , Ofuja-4-Sgaxtnkn 0.3 g/dL Normal 0.0-0.4 [facility] Comment on above: Performed By: #### H BCAB, HEPACUTE, HBSAB #### [facility] , Fqvqe-2-Xwzswovl 0.7 g/dL Normal 0.4-1.0 [facility] Comment on above: Performed By: #### H BCAB, HEPACUTE, HBSAB #### [facility] , Beta Globulin 0.8 g/dL Normal 0.7-1.3 [facility] Comment on above: Performed By: #### H BCAB, HEPACUTE, HBSAB #### [facility] , Gamma Globulin 0.8 g/dL Normal 0.4-1.8 [facility] Comment on above: Performed By: #### H BCAB, HEPACUTE, HBSAB #### [facility] , Globulin (S) [Mass/Vol] 2.6 g/dL Normal 2.2-3.9 [facility] Comment on above: Performed By: #### H BCAB, HEPACUTE, HBSAB #### [facility] , M-Yong Not Observed Normal Not Observed [facility] Comment on above: Performed By: #### H BCAB, HEPACUTE, HBSAB #### [facility] , Protein [Mass/Vol] 5.7 g/dL Low 6.0-8.5 [facility] Comment on above: Performed By: #### H BCAB, HEPACUTE, HBSAB #### [facility] , SPE-Note Comment Normal . [facility] Comment on above: Result Comment: Prot ein electrophoresis scan will follow via computer, mail, or salesperson flying squad delivery. Performed at: [address] [id number] Juice Tester: Ta Norris PhD, Phone: [phone] Performed By: #### H BCAB, HEPACUTE, HBSAB #### [facility] , Protein [Mass/volume] in Ser um or PlasmaOrdered By: Timi Ferguson on 04-20-2024 Protein [Mass/Vol] Protein [Mass/volume ] in Serum or Plasma Low 6.4-8.9 [facility] Proteinase 3 Ab [Units/volum e] in Serum by ImmunoassayOrdered By: Ben Bravo on 04-20-2024 Proteinase 3 Ab IA Qn (S) Proteinase 3 Ab [Units/volume] in Serum by Immunoassay 0.0-0.9 [facility] Prothrombin Time INRon 04-20 INR Coag (PPP) [Relative time] 1.1 {INR} Normal [facility] Comment on above: Order Comment: CAN'T DRAW 37 READ AND BLUE TOP HE'S BEING HEPERNIZED Result Comment: INR Therapeutic Range A) Pre- and Peroperative OAT started two weeks before surgery. NOT HIP SURGERY: 1.5 - 2.5 HIP SURGERY: 2 - 3 B) Primary and secondary prevention of venous THROMBOSIS: 2 - 3 C) Active venous thrombosis, pulmonary embolism and prevention of recurrent venous thrombosis: 2 - 3 D) Prevention of arterial thromboembolism including patients with mechanical heart valves: 3 - 4.5 Performed By: #### P TT, PT #### [facility] [address] PT Coag (PPP) [Time] 12.7 s Normal 9.0-12.9 [facility] Comment on above: Order Comment: CAN'T DRAW 37 READ AND BLUE TOP HE'S BEING HEPERNIZED Result Comment: A he matocrit value greater than 55% may lead to inaccurate results in coagulation testing. Patients having hematocrit values >55% require a special collection tube for coagulation studies. Please contact the laboratory at [phone] for redraw instructions. Performed By: #### P TT, PT #### [facility] [address] Prothrombin time (PT)Ordered By: Timi Ferguson on 04-20-2024 PT Coag (PPP) [Time] Prothrombin time (PT) 9.0- 12.9 [facility] Comment on above: A hematocrit value g reater than 55% may lead to inaccurate results in coagulation testing. Patients having hematocrit values >55% require a special collection tube for coagulation studies. Please contact the laboratory at [phone] for redraw instructions. RBC Auto (Bld) [#/Vol]Ordere d By: Timi Ferguson on 04-20-2024 RBC (Bld) [#/Vol] Erythrocytes [#/volu me] in Blood by Automated count Low 3.90-5.60 [facility] RBC Auto (Bld) [#/Vol]on RBC (Bld) [#/Vol] Erythrocytes [#/volu me] in Blood by Automated count Low 4.70-6.10 [facility] Serum classic neutrophil cyt oplasmic antibody titer by immunofluorescenceOrdered By: Ben Bravo on 04-20-2024 Neutrophil cytoplasmic Ab.classic IF (S) [Titer] Serum classic neutrophil cytoplasmic antibody titer by immunofluorescence Neg:<1:20 [facility] Serum free kappa light chain measurementOrdered By: Ben Bravo on 04-20-2024 Immunoglobulin light chains.kappa.free (S) [Mass/Vol] Immunoglobulin light chains.kappa.free [Mass/volume] in Serum High 3.3-19.4 [facility] Serum globulin measurement ( mass/volume)Ordered By: Ben Bravo on 04-20-2024 Globulin (S) [Mass/Vol] Serum globulin measurement (mass/volume) 2.2-3.9 [facility] Serum hepatitis B virus surf kimmie antibody detectionOrdered By: Ben Bravo on 04-20-2024 HBV surface Ab Ql (S) Hepatitis B virus surface Ab [Presence] in Serum . [facility] Comment on above: Non Reactive: Not im mune to HBV infection. Equivocal: Unable to determine if anti-HBs is present at levels consistent with immunity. Reactive: Anti-HBs concentration detected at greater than 10 mIU/mL. Individual is considered to be immune to infection with HBV. Serum immunofixation electro phoresisOrdered By: Ben Bravo on 04-20-2024 Serum Immunofixation Comment: . [facility] Comment on above: Presence of monoclon al protein is unclear at this time. Suggestrepeat in 3 to 6 months if clinically indicated. Serum immunoglobulin free ka ppa light chains/immunoglobulin free lambda light chainsOrdered By: Ben Bravo on 04-20-2024 Immunoglobulin light chains.kappa.free/Immun oglobulin light chains.lambda.free (S) [Mass ratio] Immunoglobulin light chains.kappa.free/Immuno globulin light chains.lambda.free [Mass 0.26-1.65 [facility] Comment on above: Performed at: [facility] [address] [id number] Director: Ta Norris PhD, Phone: [phone] Serum nuclear antibody titer Ordered By: Ben Bravo on 04-20-2024 Nuclear Ab (S) [Titer] Serum nuclear ant ibody titer . [facility] Comment on above: Negative <1:80 Borde rline 1:80 Positive >1:80ICAP nomenclature: AC-0For more information about Hep-2 cell patterns useANApatterns.org, the official website for theInternational Consensus on Antinuclear Antibody (SIGIFREDO)Patterns (ICAP).Performed at: [employer] [facility] [address] [id number] Director: Ta Norris PhD, Phone: [phone] Serum or plasma IgA measurem ent (mass/volume)Ordered By: Ben Bravo on 04-20-2024 IgA [Mass/Vol] IgA [Mass/volume] in Serum or Plasma 90-347 [facility] Serum or plasma IgG measurem ent (mass/volume)Ordered By: Ben Bravo on 04-20-2024 IgG [Mass/Vol] IgG [Mass/volume] in Serum or Plasma 603-2849 [facility] Serum or plasma IgM measurem ent (mass/volume)Ordered By: Ben Bravo on 04-20-2024 IgM [Mass/Vol] IgM [Mass/volume] in Serum or Plasma 20-172 [facility] Comment on above: Performed at: - [address] [id number] Director: Ta Norris PhD, Phone: [phone] Serum or plasma albumin olinda urement (mass/volume)Ordered By: Ben Bravo on 04-20-2024 Albumin [Mass/Vol] Albumin [Mass/volume ] in Serum or Plasma 2.9-4.4 [facility] Serum or plasma albumin/glob ulin mass ratioOrdered By: Timi Ferguson on 04-20-2024 Albumin/Globulin [Mass ratio] Serum or plasma albumin/globulin mass ratio [facility] Serum or plasma albumin/glob ulin mass ratioOrdered By: Ben Bravo on 04-20-2024 Albumin/Globulin [Mass ratio] Serum or plasma albumin/globulin mass ratio 0.7-1.7 [facility] Serum or plasma albumin/glob ulin mass ratioon 04-20-2024 Albumin/Globulin [Mass ratio] Serum or plasma albumin/globulin mass ratio [facility] Serum or plasma alpha 1 glob ulin measurement by electrophoresis (mass/volume)Ordered By: Ben Bravo on 04-20-2024 Alpha 1 globulin Elph [Mass/Vol] Serum or plasma alpha 1 globulin measurement by electrophoresis (mass/volume) 0.0-0.4 [facility] Serum or plasma alpha 2 glob ulin measurement by electrophoresis (mass/volume)Ordered By: Ben Bravo on 04-20-2024 Alpha 2 globulin Elph [Mass/Vol] Serum or plasma alpha 2 globulin measurement by electrophoresis (mass/volume) 0.4-1.0 [facility] Serum or plasma anion gap de terminationOrdered By: Timi Ferguson on 04-20-2024 Anion gap [Moles/Vol] Serum or plasma an ion gap determination High 6.0-15.0 [facility] Serum or plasma anion gap de terminationon 04-20-2024 Anion gap [Moles/Vol] Serum or plasma an ion gap determination [facility] Serum or plasma beta globuli n measurement by electrophoresis (mass/volume)Ordered By: Ben Bravo on 04-20-2024 Beta globulin Elph [Mass/Vol] Serum or plasma beta globulin measurement by electrophoresis (mass/volume) 0.7-1.3 [facility] Serum or plasma complement C 3 measurement (mass/volume)Ordered By: Ben Bravo on 04-20-2024 Complement C3 [Mass/Vol] Serum or plasma complement C3 measurement (mass/volume) 82-167 [facility] Comment on above: Performed at: [facility] [address] [id number] Director: Ta Norris PhD, Phone: [phone] Serum or plasma complement C 4 measurement (mass/volume)Ordered By: Ben Bravo on 04-20-2024 Complement C4 [Mass/Vol] Serum or plasma complement C4 measurement (mass/volume) 12-38 [facility] Serum or plasma gamma globul in measurement by electrophoresis (mass/volume)Ordered By: Ben Bravo on 04-20-2024 Gamma globulin Elph [Mass/Vol] Serum or plasma gamma globulin measurement by electrophoresis (mass/volume) 0.4-1.8 [facility] Serum or plasma hepatitis B virus surface antigen detection by immunoassayOrdered By: Ben Bravo on 04-20-2024 HBV surface Ag IA Ql Hepatitis B virus surface Ag [Presence] in Serum or Plasma by Immunoassay Negative [facility] Serum or plasma hepatitis C virus RNA viral load by probe and target amplification meOrdered By: Ben Bravo on 04-20-2024 HCV RNA MONTSERRAT+probe [Log units/Vol] Hepatitis C virus RNA [log units/volume] (viral load) in Serum or Plasma by MONTSERRAT with . [facility] Serum or plasma immunoglobul in free lambda light chains measurement (mass/volume)Ordered By: Ben Bravo on 04-20-2024 Immunoglobulin light chains.lambda.free [Mass/Vol] Immunoglobulin light chains.lambda.free [Mass/volume] in Serum or Plasma High 5.7-26.3 [facility] Serum or plasma myoglobin me asurement (mass/volume)on 04-20-2024 Myoglobin [Mass/Vol] Serum or plasma myoglobin measurement (mass/volume) Critically high 16-96 [facility] Comment on above: RESULTS CALLED TO CHASITY RODRIGUEZ M.D. Serum or plasma non-glucuron idated bilirubin measurement (mass/volume)Ordered By: Timi Ferguson on 04-20-2024 Bilirubin.indirect [Mass/Vol] Serum or plasma non-glucuronidated bilirubin measurement (mass/volume) [facility] Serum total protein measurem entOrdered By: Ben Bravo on 04-20-2024 Protein [Mass/Vol] Protein [Mass/volume ] in Serum or Plasma Low 6.0-8.5 [facility] Sodium [Moles/volume] in Ser um or PlasmaOrdered By: Timi Ferguson on 04-20-2024 Sodium [Moles/Vol] Sodium [Moles/volume ] in Serum or Plasma 136-145 [facility] Urate [Mass/volume] in Serum or PlasmaOrdered By: Timi Ferguson on 04-20-2024 Urate [Mass/Vol] Urate [Mass/volume] in Serum or Plasma High 4.4-7.6 [facility] Urea nitrogen [Mass/volume] in Serum or PlasmaOrdered By: Timi Ferguson on 04-20-2024 Urea nitrogen [Mass/Vol] Urea nitrogen [Mass/volume] in Serum or Plasma High 7-25 [facility] Uric Acidon 04-20-2024 Urate [Mass/Vol] 9.6 mg/dL High 4.4-7.6 [facility] Comment on above: Order Comment: label s and tubes given to WILIAM gautam AB 1704 Performed By: #### H BCAB, HEPACUTE, HBSAB #### [facility] , Urine Cultureon 04-20-2024 Bacteria identified Cx Nom (U) No Growth 2 Days PERFORMED BY: [facility] [address] [place] [address] PATHOLOGIST ON CALL PHARMACY TECHNICIAN HALLE AVALOS M.D. Normal [facility] Comment on above: Performed By: #### B MP #### [address] Urine cultureOrdered By: Farzana Leigh on 04-20-2024 Bacteria identified Cx Nom (U) Urine culture [facility] Bacteria identified Cx Nom (U) Urine culture [facility] Urine tricyclic antidepressa nt measurementon 04-20-2024 Tricyclic antidepressants (U) [Mass/Vol] Urine tricyclic antidepressant measurement NEGATIVE [facility] WBC Auto (Bld) [#/Vol]Ordere d By: Timi Ferguson on 04-20-2024 WBC (Bld) [#/Vol] Leukocytes [#/volume ] in Blood by Automated count 4.1-10.5 [facility] Whole blood phosphatidyletha nol measurement by LC-MS/MS (mass/volume)Ordered By: Timi Ferguson on 04-20-2024 Phosphatidylethanol (Bld) [Mass/Vol] Whole blood phosphatidylethanol measurement by LC-MS/MS (mass/volume) [facility] Comment on above: See report. Scanned copy available in EMR. X-ray reportOrdered By: Emery Steinberg on 04-20-2024 Study report [facility] [place] [address] [place] [address] XRay Report Signed Patient: Ness Beaver MR#: [id number] : 1980 Acct:[id number] Age/Sex: 44 / M ADM Date: 5 Loc: Room: [address] [place] [address] Type: ADM IN Attending Dr: Timi Ferguson DO Copies to: MD Timi Moreno, ~ Ordering Provider: Chiqui Cox MD Date of Service: 04/20/24 XR/XR chest 1V portable: line placement XR chest 1V portable 04/20/2024 4:47 PM SIGNS AND SYMPTOMS: ^line placement PROTOCOL: Frontal radiograph of the chest COMPARISON: None FINDINGS: The trachea is midline. There is a right IJ line with the tip in the superior vena cava. No pneumothorax. The heart and mediastinal structures are within normal limits. The lung parenchyma is clear. The bony thorax is intact. XR/XR chest 1V portable IMPRESSION: There is a right IJ line with the tip in the superior vena cava. No pneumothorax. Impression dictated by: Emery Steinberg M.D.04/20/2024 4:47 PM Dictation Location: RADIO-PC-17 Transcribed By: HALINA 04/20/241646 Dictated By: Emery Steinberg II, MD 04/20/241645 Signed By: 04/20/241646 [facility] Work Phone: XR chest 1V portableon 04-20 XR chest 1V portable [facility] [place] [address] XRay Report Signed Patient: Ness Beaver MR#: [id number] : 1980 Acct:[id number] Age/Sex: 44 / M ADM Date: 04/20/24 Loc: Room: [address] [place] [address] Type: ADM IN Attending Dr: Timi Ferguson DO Copies to: MD Timi Moreno DO Ordering Provider: Chiqui Cox MD Date of Service: 04/20/24 XR/XR chest 1V portable: line placement XR chest 1V portable 04/20/2024 4:47 PM SIGNS AND SYMPTOMS: line placement PROTOCOL: Frontal radiograph of the chest COMPARISON: None FINDINGS: The trachea is midline. There is a right IJ line with the tip in the superior vena cava. No pneumothorax. The heart and mediastinal structures are within normal limits. The lung parenchyma is clear. The bony thorax is intact. XR/XR chest 1V portable IMPRESSION: There is a right IJ line with the tip in the superior vena cava. No pneumothorax. Impression dictated by: Emery Steinberg M.D.04/20/2024 4:47 PM Dictation Location: RADIO-PC-17 Transcribed By: HALINA 04/20/241646 Dictated By: Emery Steinberg II, MD 04/20/241645 Signed By: 02/20/25 1647 Normal [facility] aPTT in Platelet poor plasma by Coagulation assayOrdered By: Timi Ferguson on 04-20-2024 aPTT Coag (PPP) [Time] Activated partial thromboplastin time (aPTT) in platelet poor plasma by coagulation a 25.1-36.5 [facility] Comment on above: A hematocrit value g reater than 55% may lead to inaccurate results in coagulation testing. Patients having hematocrit values >55% require a special collection tube for coagulation studies. Please contact the laboratory at [phone] for redraw instructions. oxyCODONE+oxyMORphone [Prese nce] in Urine by Screen methodon 04-20-2024 oxyCODONE+oxyMORphone Screen Ql (U) oxyCODONE+oxyMORphone [Presence] in Urine by Screen method NEGATIVE [facility] ECG 12 lead ECGon 12-22-2023 ECG 12 lead ECG [facility] [place] [address] Electrocardiograph Report Signed Patient: Ness Beaver MR#: [id number] : 1980 Acct:[id number] Age/Sex: 43 / M ADM Date: 12/22/23 Loc: Room: Type: [facility] Attending Dr: Stan Richards MD Ordering Provider: [...] by 37 bpm Confirmed by DAVID HART FAC, ZAHRA ([id number]) on 12/22/2023 1:53:59 PM Referred By: Electronically Signed By: ZAHRA HERNANDEZ MD FAC Transcribed By: MUS Signed By Zahra Hernandez MD, FACC 12/22/23 5841 Normal [facility] Amphetamine Screen Ql (U)Ord ered By: Chay Weber on 12-08-2023 Amphetamines Ql (U) Negative Negative [facility] Barbiturates [Presence] in U rine by Screen methodOrdered By: Chay Weber on 12-08-2023 Barbiturates Screen Ql (U) Negative Negative [facility] Benzodiazepines Screen Ql (U )Ordered By: Chay Weber on 12-08-2023 Benzodiazepines Ql (U) Negative Negative [facility] Benzoylecgonine [Presence] i n Urine by Screen methodOrdered By: Chay Weber on 12-08-2023 Benzoylecgonine Screen Ql (U) Negative Negative [facility] Cannabinoids [Presence] in U rine by Screen methodOrdered By: Chay Weber on 12-08-2023 Cannabinoids Screen Ql (U) Negative Negative [facility] Comment on above: These are unconfirme d results and should not be used for legal purposes. Drug Cut-Off Concentration: AMPH 1000 ng/mL ASHLEY 200 ng/mL QUINCY 200 ng/mL COCM 300 ng/mL OP 300 ng/mL PCP 25 ng/mL THC 20 ng/mL Drug Screen,Urineon 12-08-19 24 Amphetamine Screen,Urine Negative Normal Negative [facility] Comment on above: Performed By: #### A ERC GS #### [address] Barbiturate Screen,Urine Negative Normal Negative [facility] Comment on above: Performed By: #### A ERC, GS #### [facility] [address] [place] [address] [place] Benzodiazepines Screen,Urine Negative Normal Negative [facility] Comment on above: Performed By: #### A ERC, GS #### [facility] [address] [place] [address] [place] Cannabinoid Screen,Urine Negative Normal Negative [facility] Comment on above: Result Comment: Thes e are unconfirmed results and should not be used for legal purposes. Drug Cut-Off Concentration: AMPH 1000 ng/mL ASHLEY 200 ng/mL QUINCY 200 ng/mL COCM 300 ng/mL OP 300 ng/mL PCP 25 ng/mL THC 20 ng/mL PERFORMED BY: [place] [address] PATHOLOGIST ON CALL PHARMACY TECHNICIAN CHRISTOPHER CARTER M.D. Performed By: #### A ERC, GS #### [address] Cocaine Screen,Urine Negative Normal Negative [facility] Comment on above: Performed By: #### A ERC, GS #### [place] [address] [place] Opiate Screen,Urine Negative Normal Negative [facility] Comment on above: Performed By: #### A ERC, GS #### [address] Phencyclidine Screen,Urine Negative Normal Negative [facility] Comment on above: Performed By: #### A ERC, GS #### [address] Opiates [Presence] in Urine by Screen methodOrdered By: Imad Asaad on 12-08-2023 Opiates Screen Ql (U) Negative Negative [facility] Phencyclidine Screen Ql (U)O rdered By: Imad Asaad on 12-08-2023 Phencyclidine Ql (U) Negative Negative [facility] Aerobic Cultureon 11-29-2023 Aerobic Culture No Growth 2 Days ORGANISM: Finegoldia magna (O:FINMAG) Quantity of Growth Light Growth Please contact Microbiology within 7 days if anaerobic susceptibilities are needed. Gram Stain Result 1+ White Blood Cells No Bacteria Seen PERFORMED BY: [place] [address] PATHOLOGIST ON CALL PHARMACY TECHNICIAN CHRISTOPHER CARTER M.D. Normal [facility] Comment on above: Performed By: #### A ERC, GS #### [place] [address] [place] Gram Stainon 11-29-2023 Microscopic observation Gram stain Nom (Unsp spec) Gram Stain Result 1+ White Blood Cells No Bacteria Seen PERFORMED BY: [place] [address] PATHOLOGIST ON CALL PHARMACY TECHNICIAN CHRISTOPHER CARTER M.D. Normal [facility] Comment on above: Performed By: #### A RICHARDSON, HOSSEIN #### [address] Gram stain for investigation of transfusion reactionOrdered By: Asiya Boyd on 11-29-2023 Microscopic observation Gram stain Nom (Unsp spec) Finegoldia magna Abnormal [facility] Basophils Auto (Bld) [#/Vol] on 11-23-2023 Basophils (Bld) [#/Vol] 0.1 10 3/uL 0.0-0.1 [facility] Basophils/100 WBC Auto (Bld) on 11-23-2023 Basophils/100 WBC (Bld) 0.6 % 0.2-2.0 [facility] Eosinophils/100 WBC Auto (Bl d)on 11-23-2023 Eosinophils/100 WBC (Bld) 0.6 % Low 0.9-7.0 [facility] Erythrocyte distribution wid th Auto (RBC) [Ratio]on 11-23-2023 Erythrocyte distribution width (RBC) [Ratio] 12.8 % 11.0-15.0 [facility] Estimated glomerular filtrat ion rate (GFR) non- Americanon 11-23-2023 GFR/1.73 sq M.predicted among non-blacks MDRD (S/P/Bld) [Vol rate/Area] mL/min/{1.73_m2} >=60 [facility] Globulin Calc (S) [Mass/Vol] on 11-23-2023 Globulin (S) [Mass/Vol] 3.3 g/dL [facility] Hematocrit Auto (Bld) [Volum e fraction]on 11-23-2023 Hematocrit (Bld) [Volume fraction] 43.3 % 42.0-54.0 [facility] Hemoglobin [Mass/volume] in Bloodon 11-23-2023 Hemoglobin (Bld) [Mass/Vol] 14.6 g/dL 14.0-18.0 [facility] Laboratory - Chemistry and C hemistry - challengeon 11-23-2023 Albumin [Mass/Vol] 4.2 g/dL 3.4-5.0 [facility] ALP [Catalytic activity/Vol] 72 U/L 46-116 [facility] ALT [Catalytic activity/Vol] 27 U/L 16-63 [facility] AST [Catalytic activity/Vol] 24 U/L 15-37 [facility] Bilirubin [Mass/Vol] 0.4 mg/dL 0.2-1.0 [facility] Calcium [Mass/Vol] 9.2 mg/dL 8.5-10.1 [facility] Chloride [Moles/Vol] 98 mmol/L 98-107 [facility] CO2 [Moles/Vol] 30.5 mmol/L 21.0-32.0 [facility] Creatinine [Mass/Vol] 0.86 mg/dL 0.70-1.30 [facility] GFR/1.73 sq M.predicted MDRD (S/P/Bld) [Vol rate/Area] mL/min/{1.73_m2} >=60 [facility] Glucose [Mass/Vol] 96 mg/dL 74-106 [facility] Potassium [Moles/Vol] 4.1 mmol/L 3.5-5.1 [facility] Protein [Mass/Vol] 7.5 g/dL 6.4-8.2 [facility] Sodium [Moles/Vol] 136 mmol/L 136-145 [facility] Urea nitrogen [Mass/Vol] 14.0 mg/dL 7.0-18.0 [facility] Urea nitrogen/Creatinine [Mass ratio] 16.3 mg/mg [facility] Laboratory - Hematology and Cell countson 11-23-2023 Immature granulocytes/100 WBC (Bld) 0.1 % 0.0-0.5 [facility] Leukocytes [#/volume] correc paul for nucleated erythrocytes in Blood by Automated counon 11-23-2023 WBC corrected for nucl RBC Auto (Bld) [#/Vol] 9.5 10 3/uL 4.0-11.0 [facility] Lymphocytes Auto (Bld) [#/Vo l]on 11-23-2023 Lymphocytes (Bld) [#/Vol] 1.1 10 3/uL Low 1.2-3.8 [facility] Lymphocytes/100 WBC Auto (Bl d)on 11-23-2023 Lymphocytes/100 WBC (Bld) 11.4 % Low 20.5-60.0 [facility] MCH Auto (RBC) [Entitic mass ]on 11-23-2023 MCH (RBC) [Entitic mass] 27.9 pg 25.9-34.0 [facility] MCHC Auto (RBC) [Mass/Vol]on 11-23-2023 MCHC (RBC) [Mass/Vol] 33.7 g/dL 29.9-35.2 [facility] MCV Auto (RBC) [Entitic vol] on 11-23-2023 MCV (RBC) [Entitic vol] 82.6 fL 80.0-94.0 [facility] Monocytes Auto (Bld) [#/Vol] on 11-23-2023 Monocytes (Bld) [#/Vol] 0.9 10 3/uL High 0.3-0.8 [facility] Monocytes/100 WBC Auto (Bld) on 11-23-2023 Monocytes/100 WBC (Bld) 9.3 % 1.7-12.0 [facility] Neutrophils Auto (Bld) [#/Vo l]on 11-23-2023 Neutrophils (Bld) [#/Vol] 7.4 10 3/uL High 1.4-6.5 [facility] Neutrophils/100 WBC Auto (Bl d)on 11-23-2023 Neutrophils/100 WBC (Bld) 78.0 % High 43.0-75.0 [facility] No Panel Informationon 11-22 Eosinophils # (Auto) 0.1 10 3/uL 0.0-0.7 [facility] Immature Granulocyte # (Auto) 0.01 10 3/uL 0.00-0.03 [facility] Platelet mean volume Auto (B ld) [Entitic vol]on 11-23-2023 Platelet mean volume (Bld) [Entitic vol] 9.9 fL 9.5-13.5 [facility] Platelets Auto (Bld) [#/Vol] on 11-23-2023 Platelets (Bld) [#/Vol] 263 10 3/uL 150-450 [facility] RBC Auto (Bld) [#/Vol]on RBC (Bld) [#/Vol] 5.24 10 6/uL 4.70-6.10 [facility] Serum or plasma albumin/glob ulin mass ratioon 11-23-2023 Albumin/Globulin [Mass ratio] 1.3 {ratio} [facility] Serum or plasma anion gap de terminationon 11-23-2023 Anion gap [Moles/Vol] 11.6 mmol/L [facility] ED Provider Noteon ED Provider Note EMERGENCY [...] 07/28/23 0701 07/28/23 0701 07/28/23 07 36.6 ?C (97.9 ?F) 75 18 130/79 [...] (more content not included)... Normal [facility] COMPLETE URINALYSISon 2023 BACTERIA (#/HPF) IN URINE Few Abnormal Negative [facility] Comment on above: Performed By: #### L [id number] ####Academic Support Director: CRISTIANA BROWN ([phone])[facility])[address] [place] [address] BILIRUBIN, TOTAL PRESENCE IN URINE Negative Normal Negative [facility] Comment on above: Performed By: #### L [id number] ####Academic Support Director: CRISTIANA BROWN ([phone])[facility])[address] [place] [address] Clarity (U) Clear Normal Clear [facility] Comment on above: Performed By: #### L [id number] ####Academic Support Director: CRISTIANA BROWN ([phone])[facility] [place] [address] Color (U) Yellow Normal Lt. Yellow [facility] Comment on above: Performed By: #### L [id number] ####Academic Support Director: CRISTIANA BROWN ([phone])[facility])[address] [place] [address] GLUCOSE (MG/DL) IN URINE Normal Normal Normal (<70) [facility] Comment on above: Performed By: #### L [id number] ####Academic Support Director: CRISTIANA BROWN ([phone])[facility] [place] [address] HEMOGLOBIN PRESENCE IN URINE Negative Normal Negative [facility] Comment on above: Performed By: #### L [id number] ####Academic Support Director: CRISTIANA BROWN ([phone])[facility])[address] [place] [address] HYALINE CASTS (#/LPF) IN URINE SEDIMENT BY MICROSCOPY Negative Normal Negative [facility] Comment on above: Performed By: #### L [id number] ####Academic Support Director: CRISTIANA BROWN ([phone])[facility])[address] [place] [address] Ketones Ql (U) Negative Normal Negative [facility] Comment on above: Performed By: #### L [id number] ####Academic Support Director: CRISTIANA BROWN ([phone])[facility] [place] [address] LEUKOCYTE ESTERASE PRESENCE IN URINE BY TEST STRIP 25 Irina/uL Abnormal Negative [facility] Comment on above: Performed By: #### L [id number] ####Academic Support Director: CRISTIANA BROWN ([phone])[facility] ([facility])[address] [place] [address] MUCUS (#/LPF) IN URINE SEDIMENT Many Abnormal Negative [facility] Comment on above: Performed By: #### L [id number] ####Academic Support Director: CRISTIANA BROWN ([phone])[facility] ([facility])[address] [place] [address] NITRITE PRESENCE IN URINE Negative Normal Negative [facility] Comment on above: Performed By: #### L [id number] ####Academic Support Director: CRISTIANA BROWN ([phone])[facility])[address] [place] [address] pH (U) 6.0 [pH] Normal 5.0-8.0 [facility] Comment on above: Performed By: #### L [id number] ####Academic Support Director: CRISTIANA BROWN ([phone])[facility] [place] [address] Protein (U) [Mass/Vol] 10 mg/dL Abnormal Negative [facility] Comment on above: Performed By: #### L [id number] ####Academic Support Director: CRISTIANA BROWN ([phone])[facility] ([facility])[address] [place] [address] RBC (#/HPF) IN URINE SEDIMENT 3-5 Abnormal 0-2 [facility] Comment on above: Performed By: #### L [id number] ####Academic Support Director: CRISTIANA BROWN ([phone])[facility] ([facility])[address] [place] [address] Specific gravity (U) [Rel density] 1.033 High 1.005-1.030 [facility] Comment on above: Performed By: #### L [id number] ####Academic Support Director: CRISTIANA BROWN ([phone])[facility] ([facility])[address] [place] [address] SQUAMOUS EPITHELIAL CELLS (#/HPF) IN URINE SEDIMENT 0-2 Normal 3-5 [facility] Comment on above: Performed By: #### L [id number] ####Academic Support Director: CRISTIANA BROWN ([phone])[facility] ([facility])[address] [place] [address] UROBILINOGEN (MG/DL) IN URINE 3 mg/dL Abnormal Normal (0-1) [facility] Comment on above: Performed By: #### L [id number] ####Academic Support Director: CRISTIANA BROWN ([phone])[facility] ([facility])[address] [place] [address] WBC (LEUKOCYTE) (#/HPF) IN URINE SEDIMENT 3-5 Normal 0-5 [facility] Comment on above: Performed By: #### L [id number] ####Academic Support Director: CRISTIANA BROWN ([phone])[facility] ([facility])[address] [place] [address] ED Provider Noteon 4 ED Provider Note [...] (more content not included)... Normal [facility] Laboratory - Microbiology an d Antimicrobial susceptibilityon 04-02-2023 FLUAV RNA MONTSERRAT+probe Ql (Resp) Not detected Not Detected [facility] FLUBV RNA MONTSERRAT+probe Ql (Resp) Not detected Not Detected [facility] RSV RNA MONTSERRAT+probe Ql (Resp) Detected Abnormal Not Detected [facility] SARS-CoV-2 (COVID-19) RNA MONTSERRAT+probe Ql (Resp) Not detected Not Detected [facility] SARS-COV-2, FLU A/B, AND RSV COMBOon 04-02-2023 SARS-CoV-2 (COVID-19) RNA MONTSERRAT+probe Ql (Unsp spec) SARS-COV-2 Reference Not Detected Not Detected RESPIRATORY SYNCYTIAL VIRUS (A) Reference Detected Not Detected INFLUENZA A (CEPHEID) Reference Not Detected Not Detected INFLUENZA B (CEPHEID) Reference Not Detected Not Detected ORDER COMMENTS: Methodology: real-time, RT-PCR Normal [facility] Comment on above: Performed By: #### L [id number] #### Academic Support Director: CRISTIANA BROWN ([phone]) [facility] ([facility]) [address] [place] [address] SARS-CoV-2, Flu A/B, and RSV Comboon 04-02-2023 Interpretation and review of laboratory results Abnormal [facility] Methodology: real-ti me, RT-PCR [facility] Urinalysis complete panel (U )Ordered By: Mónica Grace on 04-02-2023 Bacteria LM.HPF (Urine sed) [#/Area] Few Abnormal Negative /HPF [facility] Bilirubin Ql (U) Negative Negative mg/dL [facility] Clarity (U) Clear Clear [facility] Color (U) Yellow Lt. Yellow [facility] Epithelial cells.squamous LM.HPF (Urine sed) [#/Area] 0-2 [facility] Glucose Ql (U) Normal Normal (<70) mg/dL [facility] Hemoglobin Ql (U) Negative Negative mg/dL [facility] Hyaline casts Auto (Urine sed) [#/Area] Negative Negative /LPF [facility] Interpretation and review of laboratory results Abnormal [facility] Ketones (U) [Mass/Vol] Negative Negat harper mg/dL [facility] Leukocyte esterase Test strip Ql (U) 25 Abnormal Negative Irina/uL [facility] Mucus LM.HPF (Urine sed) [#/Area] Many Abnormal Negative /LPF [facility] Nitrite Ql (U) Negative Negative [facility] pH (U) 6.0 [pH] 5.0 - 8.0 pH [facility] Protein (U) [Mass/Vol] 10 mg/dL Abnormal Negative [facility] RBC LM.HPF (Urine sed) [#/Area] 3-5 Abnormal [facility] Specific gravity (U) [Rel density] 1.033 High 1.005 - 1.030 [facility] Urobilinogen (U) [Mass/Vol] 3 mg/dL Abnormal Normal (0-1) [facility] WBC LM.HPF (Urine sed) [#/Area] 3-5 [facility] XR Chest Single viewon 04-02 Impression: No acute cardiopulmonary process. Report Dictated on Electronically Signed By: Live Stinson MD Electronically Signed Date/Time: 04/02/2023 11:06 AM EST [facility] [employer] Patient Name: NESS BEAVER : 1980 [...] mild to moderate thoracic scoliosis apex leftward. [facility] Live Stinson MD - 04/02/2023 Patient [...] Electronically Signed Date/Time: 04/02/2023 11:06 AM EST [facility] [employer] Radiology Study observation (narrative) [employer] XR Chest Single viewOrdered By: Live Stinson on 04-02-2023 [employer] Work Phone: ED Nursing Noteon 03-06-2023 ED Nursing Note Discharge instructjennifer dillon reviewed with patient and he understands. He will take 2 doses of 8mg suboxone on 03/07,03/08, and 03/09. He will not take any suboxone on 03/10 for appointment at [place]. I called [facility] for transportation. Patient discharged to wait in waiting room for ride. Luba Abbott RN 03/06/23 193 Normal [facility] ED Nursing Note Patient spoke with Allan salcedo financial coach on the phone. PRC card provided. Verified with [employer] Business Analyst at [facility] that he is a patient there. Luba Abbott RN 03/06/23 5968 Normal [facility] ED Nursing Note Patient in MAT room, with suboxone prescription, has 6 8 mg suboxone strips. States the suboxone is not working with a plan to transition to methadone on Wednesday. Looking to increase dose as we are unable to initiate methadone in the ED. Addiction medicine was consulted from [facility] and stated there is no concern to increase dose with methadone transition in the future but to instruct patient to hold dose the morning of his appointment. Normal [facility] ED Nursing Note Ness Beaver was transferred from [facility] to [facility] for suboxone dosing. He was driven by [facility] employee. Dr. Uribe was consulted to discuss plan of care for this patient. He was taking suboxone 16mg and had elevated liver enzymes. His dose was stopped in January. On 02/21 he was sent to [facility] due to potential suicidal ideation. He restarted suboxone on 02/22 at 4mg. He is currently on 8/2mg per day. Last dose was on 03/05/2023 suboxone 8/2 film. He has the filled rx on him. He has an appointment to transfer to Methadone on 03/10/23 at [place]. Luba Abbott RN 03/06/23 1715 [facility] ED Nursing Note Patient being transported over to [facility] by private vehicle (I spoke with Julio Cesar from [facility] who is coming to pick the patient up). Resources have been sent with patient. Vitals remain stable. Viki Mathew RN 03/06/23 1455 [facility] ED Nursing Note Faxed consent form f or Addiction medicine and Peer financial coach pamphlet to [facility] Esme Jeter RN 03/06/23 1301 Esme Jeter RN 03/06/23 1302 [facility] ED Nursing Note MAT nurse unavailabl e until 11 am. Pt aware and will wait in waiting room until he can be evaluated Reyna Cason RN 03/06/23 0758 [facility] ED Provider Noteon ED Provider Note EMERGENCY DEPARTMENT ENCOUNTER Pt Name: Ness Beaver Birthdate 1980 Date of evaluation: 03/06/2023 ED Provider: Maribeth Veliz APRN Patient seen independently within my scope of practice with an Emergency Medicine attending available for supervision. CHIEF COMPLAINT Chief Complaint Patient presents with Addiction Problem Sent from [place] via Dr. Uribe to see MAT nurse. Acc was consulted from [place] via telehealth. Pt stated on 16/4 mg suboxone via telehealth. Now stating on 8/2 and prescription endorses this. His goal is to transition to methadone and went to [place] today through [facility] but was unable to dose due to them not having his information. They sent him to [facility]. Unable to dose methadone as a new prescription but per addiction consult plan is to increase dose of suboxone. HISTORY OF PRESENT ILLNESS (Location/Symptom, Timing/Onset, Context/Setting, Quality, Duration, Modifying Factors, Severity) Note limiting factors. I wore appropriate PPE for the entirety of this encounter. HPI Ness Beaver is a 42 y.o. who presents to the emergency department from [facility] for Suboxone dosing. Patient states that his Suboxone therapy was discontinued on 21 February due to elevated liver enzymes. Patient states he was then sent to [facility] due to suicidal ideation. Suboxone therapy restarted on 22 February at 4 mg daily. Patient has been titrated up to 8 mg daily with his last dose yesterday. He does however state that this dose has not been sufficient for managing withdrawal symptoms. There was a misunderstanding at [facility] at which time it was understood that patient was on 16 mg daily of Suboxone and still needed an increase in dose. Because of this patient was sent to [facility] to be seen by addiction medicine [...] (more content not included)... Normal [facility] ED Provider Note I did not participat e in care of this patient Maribeth Veliz, SILICA MIXER OPERATOR 03/06/23 1706 Normal [facility] ED Provider Note EMERGENCY DEPARTMENT ENCOUNTER [...] to detox. Was dropped off here by [facility] to sort out a dose. HISTORY OF PRESENT ILLNESS (Location/Symptom, Timing/Onset, Context/Setting, Quality, Duration, Modifying Factors, Severity) Note limiting factors. I wore appropriate PPE for the entirety of this encounter. HPI 42-year-old male presents emergency department today seeking methadone initiation. Is currently at [facility] and was dropped off here for possible emergency dose. He was taken to [place] and they have an appointment for him [...] No Drug use: No Comment: methadone SCREENINGS [place] Coma Scale Best Eye Response: Spontaneous Best [...] today seeking methadone initiation. Is currently at [facility] and was dropped off here for possible emergency dose. He was taken to [place] and they have an appointment for him on Wednesday but cannot initiate until then unless he has a cancellation there. He denies any alcohol use. Last used IV drugs on January 27. He last used methadone in November of this year. He states it was helping him. Of note he cur (more content not included)... Normal [facility] HEPATIC FUNCTION PANELon Albumin [Mass/Vol] 4.2 g/dL Normal 3.5-5.0 [facility] Comment on above: Performed By: #### L [id number] ####Academic Support Director: STEPHANIE GONZALES ([phone])[facility] ([facility])[address] [place] [address] ALP [Catalytic activity/Vol] 71 U/L Normal 38-126 [facility] Comment on above: Performed By: #### L [id number] ####Academic Support Director: STEPHANIE THRASHERGumaroSONIA ([phone])[facility] [place] ([facility])[address] ALT [Catalytic activity/Vol] 106 U/L High 0-49 [facility] Comment on above: Performed By: #### L AB20 ####Academic Support Director: STEPHANIE THRASHERJORGE ([phone])[facility] [place] ([facility])[address] AST [Catalytic activity/Vol] 60 U/L High 15-46 [facility] Comment on above: Performed By: #### L [id number] ####Academic Support Director: STEPHANIE JANET ([phone])[facility] [place] [address] Bilirubin [Mass/Vol] 0.7 mg/dL Normal 0.2-1.3 [facility] Comment on above: Performed By: #### L [id number] ####Academic Support Director: STEPHANIE MOELLERSONIA ([phone])[facility] [place] [address] Bilirubin.indirect [Mass/Vol] 0.0 mg/dL Normal 0.0-0.3 [facility] Comment on above: Performed By: #### L AB20 ####Academic Support Director: STEPHANIE GONZALES ([phone])[facility] [place] ([facility])[address] [place] [address] Protein [Mass/Vol] 7.6 g/dL Normal 6.3-8.2 [facility] Comment on above: Performed By: #### L AB20 ####Academic Support Director: STEPHANIE MOELLERSONIA ([phone])[facility] ([facility])[address] [place] [address] Hepatic function 2000 panelo n 03-06-2023 Albumin [Mass/Vol] 4.2 g/dL 3.5 - 5.0 g/dL [facility] ALP [Catalytic activity/Vol] 71 U/L 38 - 126 U/L [facility] ALT [Catalytic activity/Vol] 106 U/L High 0 - 49 U/L [facility] AST [Catalytic activity/Vol] 60 U/L High 15 - 46 U/L [facility] Bilirubin [Mass/Vol] 0.7 mg/dL 0.2 - 1 .3 mg/dL [facility] Bilirubin.conjugated [Mass/Vol] 0.0 mg/dL 0.0 - 0.3 mg/dL [facility] Interpretation and review of laboratory results Abnormal [facility] Protein [Mass/Vol] 7.6 g/dL 6.3 - 8.2 g/dL [facility] Alanine aminotransferase [En zymatic activity/volume] in Serum or PlasmaOrdered By: Mckenzie Cherry on 02-16-2023 ALT [Catalytic activity/Vol] 747 U/L 7-52 [facility] Albumin [Mass/volume] in Ser um or Plasma by Bromocresol green (BCG) dye binding methoOrdered By: Mckenzie Cherry on 02-16-2023 Albumin BCG dye [Mass/Vol] 4.7 g/dL 3.5-5.7 [facility] Alkaline phosphatase [Enzyma tic activity/volume] in Serum or PlasmaOrdered By: Mckenzie Cherry on 02-16-2023 ALP [Catalytic activity/Vol] 231 U/L 34-104 [facility] Anisocytosis LM Ql (Bld)Orde red By: Mckenzie Cherry on 02-16-2023 Anisocytosis Ql (Bld) Slight [facility] Aspartate aminotransferase [ Enzymatic activity/volume] in Serum or PlasmaOrdered By: Mckenzie Cherry on 02-16-2023 AST [Catalytic activity/Vol] 301 U/L 13-39 [facility] Automated erythrocytes count in urine sediment (number/area)Ordered By: Mckenzie Cherry on 02-16-2023 RBC Auto (Urine sed) [#/Area] 0-1 [HPF] 0-4 [facility] Automated leukocytes count i n urine sediment (number/area)Ordered By: Mckenzie Cherry on 02-16-2023 WBC Auto (Urine sed) [#/Area] 3-4 [HPF] 0-4 [facility] Basophils Auto (Bld) [#/Vol] Ordered By: Mckenzie Cherry on 02-16-2023 Basophils (Bld) [#/Vol] 0.2 10*3/uL 0.0-0.2 [facility] Basophils/100 WBC Auto (Bld) Ordered By: Mckenzie Cherry on 02-16-2023 Basophils/100 WBC (Bld) 3.1 % . [facility] Bilirubin Test strip Ql (U)O rdered By: Mckenzie Cherry on 02-16-2023 Bilirubin Ql (U) Negative Negative [facility] Bilirubin.total [Mass/volume ] in Serum or PlasmaOrdered By: Mckenzie Cherry on 02-16-2023 Bilirubin [Mass/Vol] 1.5 mg/dL 0.3-1.0 [facility] Comment on above: Samples from patient s who have taken Naproxen have shown spurious elevation in Total Bilirubin levels. A metabolite of Naproxen, O-desmethylnaproxen, has been shown to interfere with the Juan-Elvia method for measuring Total Bilirubin. Calcium [Mass/volume] in Ser um or PlasmaOrdered By: Mckenzie Cherry on 02-16-2023 Calcium [Mass/Vol] 9.7 mg/dL 8.6-10.3 [facility] Carbon dioxide, total [Moles /volume] in Serum or PlasmaOrdered By: Mckenzie Cherry on 02-16-2023 CO2 [Moles/Vol] 28.3 mmol/L 21.0-31.0 [facility] Chloride [Moles/volume] in S pilar or PlasmaOrdered By: Mckenzie Cherry on 02-16-2023 Chloride [Moles/Vol] 100 mmol/L 98-107 [facility] Color Auto (U)Ordered By: lAisa Cherry on 02-16-2023 Color (U) Yellow Yellow [facility] Creatinine [Mass/volume] in Serum or PlasmaOrdered By: Mckenzie Cherry on 02-16-2023 Creatinine [Mass/Vol] 0.73 mg/dL 0.70-1.30 [facility] Eosinophils Auto (Bld) [#/Vo l]Ordered By: Mckenzie Cherry on 02-16-2023 Eosinophils (Bld) [#/Vol] 0.1 10*3/uL 0.0-0.45 [facility] Eosinophils/100 WBC Auto (Bl d)Ordered By: Mckenzie Cherry on 02-16-2023 Eosinophils/100 WBC (Bld) 1.5 % . [facility] Erythrocyte distribution wid th Auto (RBC) [Ratio]Ordered By: Mckenzie Cherry on 02-16-2023 Erythrocyte distribution width (RBC) [Ratio] 15.7 % 12.0-14.8 [facility] Globulin Calc (S) [Mass/Vol] Ordered By: Mckenzie Cherry on 02-16-2023 Globulin (S) [Mass/Vol] 3.9 g/dL [facility] Glucose [Mass/volume] in Ser um or PlasmaOrdered By: Mckenzie Cherry on 02-16-2023 Glucose [Mass/Vol] 89 mg/dL 70-100 [facility] Comment on above: ADA recommended refe rence rangeRandom Glucose Reference Range is dependent on time and content of last meal. Glucose of more than 200 mg/dL in a nonstressed, ambulatory subject supports the diagnosis of Diabetes Mellitus. Hematocrit Auto (Bld) [Volum e fraction]Ordered By: Mckenzie Cherry on 02-16-2023 Hematocrit (Bld) [Volume fraction] 45.5 % 38.8-50.0 [facility] Hemoglobin [Mass/volume] in BloodOrdered By: Mckenzie Cherry on 02-16-2023 Hemoglobin (Bld) [Mass/Vol] 14.9 g/dL 13.0-17.0 [facility] Ketones Auto test strip (U) [Mass/Vol]Ordered By: Mckenzie Cherry on 02-16-2023 Ketones (U) [Mass/Vol] Negative Negative [facility] - UrinalysisOrder ed By: Mckenzie Cherry on 02-16-2023 Hyaline casts LM Ql (Urine sed) None seen [LPF] 0-8 [facility] Leukocytes [#/volume] correc paul for nucleated erythrocytes in Blood by Automated counOrdered By: Mckenzie Cherry on 02-16-2023 WBC corrected for nucl RBC Auto (Bld) [#/Vol] 7.9 10*3/uL 4.1-10.5 [facility] Lymphocytes Auto (Bld) [#/Vo l]Ordered By: Mckenzie Cherry on 02-16-2023 Lymphocytes (Bld) [#/Vol] 2.6 10*3/uL 1.00-4.8 [facility] Lymphocytes/100 WBC Auto (Bl d)Ordered By: Mckenzie Cherry on 02-16-2023 Lymphocytes/100 WBC (Bld) 33.3 % . [facility] MCH Auto (RBC) [Entitic mass ]Ordered By: Mckenzie Cherry on 02-16-2023 MCH (RBC) [Entitic mass] 27.2 pg 27.5-35.2 [facility] MCHC Auto (RBC) [Mass/Vol]Or dered By: Mckenzie Cherry on 02-16-2023 MCHC (RBC) [Mass/Vol] 32.8 g/dL 32.5-35.6 [facility] MCV Auto (RBC) [Entitic vol] Ordered By: Mckenzie Cherry on 02-16-2023 MCV (RBC) [Entitic vol] 82.9 fL 83.5-101 [facility] Monocyte distribution width [Entitic volume] in Blood by AutomatedOrdered By: Mckenzie Cherry on 02-16-2023 Monocyte distribution width Auto (Bld) [Entitic vol] 19.77 % 0.00-20.00 [facility] Comment on above: For adults in ED, MD W > 20.0 may be associated with a higher risk of sepsis during the first 12 hrs of hospital admission Monocytes Auto (Bld) [#/Vol] Ordered By: Mckenzie Cherry on 02-16-2023 Monocytes (Bld) [#/Vol] 0.3 10*3/uL 0.0-0.8 [facility] Monocytes/100 WBC Auto (Bld) Ordered By: Mckenzie Cherry on 02-16-2023 Monocytes/100 WBC (Bld) 4.1 % . [facility] Neutrophils Auto (Bld) [#/Vo l]Ordered By: Mckenzie Cherry on 02-16-2023 Neutrophils (Bld) [#/Vol] 4.6 10*3/uL 1.8-7.7 [facility] Neutrophils/100 WBC Auto (Bl d)Ordered By: Mckenzie Cherry on 02-16-2023 Neutrophils/100 WBC (Bld) 58.0 % . [facility] Nitrite Test strip Ql (U)Ord ered By: Mckenzie Cherry on 02-16-2023 Nitrite Ql (U) Negative Negative [facility] No Panel InformationOrdered By: Mckenzie Cherry on 02-16-2023 Estimated GFR (CKD-EPI) > 60.0 mL/Min [facility] Pharmacy Creatinine Clearance (Chem 125.02 [facility] Nucleated erythrocytes [Pres ence] in Blood by Automated countOrdered By: Mckenzie Cherry on 02-16-2023 Nucleated RBC Auto Ql (Bld) 0.5 /100{WBC} 0-0.5 [facility] Platelet adequacy [Presence] in Blood by Light microscopyOrdered By: Mckenzie Cherry on 02-16-2023 Platelets LM Ql (Bld) Normal Normal [facility] Platelet mean volume Auto (B ld) [Entitic vol]Ordered By: Mckenzie Cherry on 02-16-2023 Platelet mean volume (Bld) [Entitic vol] 9.3 fL 6.6-10.1 [facility] Platelet morphology finding [Identifier] in BloodOrdered By: Mckenzie Cherry on 02-16-2023 Platelet morphology finding Nom (Bld) Normal Normal [facility] Platelets Auto (Bld) [#/Vol] Ordered By: Mckenzie Cherry on 02-16-2023 Platelets (Bld) [#/Vol] 310 10*3/uL 150-450 [facility] Potassium [Moles/volume] in Serum or PlasmaOrdered By: Mckenzie Cherry on 02-16-2023 Potassium [Moles/Vol] 4.7 mmol/L 3.5-5.1 [facility] Protein Auto test strip (U) [Mass/Vol]Ordered By: Mckenzie Cherry on 02-16-2023 Protein (U) [Mass/Vol] Negative Negative [facility] Protein [Mass/volume] in Ser um or PlasmaOrdered By: Mckenzie Cherry on 02-16-2023 Protein [Mass/Vol] 8.6 g/dL 6.4-8.9 [facility] RBC Auto (Bld) [#/Vol]Ordere d By: Mckenzie Cherry on 02-16-2023 RBC (Bld) [#/Vol] 5.49 10*6/uL 3.90-5.60 [facility] RBC morphologyOrdered By: Co urtseasr Cherry on 02-16-2023 RBC morphology finding Nom (Bld) N/A [facility] Red blood cell stomatocyte d etectionOrdered By: Mckenzie Cherry on 02-16-2023 Stomatocytes LM Ql (Bld) Slight [facility] Serum or plasma albumin/glob ulin mass ratioOrdered By: Mckenzie Cherry on 02-16-2023 Albumin/Globulin [Mass ratio] 1.2 {ratio} [facility] Serum or plasma anion gap de terminationOrdered By: Mckenzie Cherry on 02-16-2023 Anion gap [Moles/Vol] 12.4 mmol/L 6.0-15.0 [facility] Sodium [Moles/volume] in Ser um or PlasmaOrdered By: Mckenzie Cherry on 02-16-2023 Sodium [Moles/Vol] 136 mmol/L 136-145 [facility] Specific gravity Auto test s trip (U) [Rel density]Ordered By: Mckenzie Cherry on 02-16-2023 Specific gravity (U) [Rel density] 1.017 1.001-1.030 [facility] Squamous epithelial cells de tection in urine sediment by light microscopyOrdered By: Mckenzie Cherry on 02-16-2023 Epithelial cells.squamous LM Ql (Urine sed) 0-1 [HPF] 0-2 [facility] Urea nitrogen [Mass/volume] in Serum or PlasmaOrdered By: Mckenzie Cherry on 02-16-2023 Urea nitrogen [Mass/Vol] 16 mg/dL 7-25 [facility] Urine bacteria detection by automated methodOrdered By: Mckenzie Cherry on 02-16-2023 Bacteria Auto Ql (U) None seen None [facility]en [facility] Urine clarity by refractomet ry automatedOrdered By: Mckenzie Cherry on 02-16-2023 Clarity Refractometry automated (U) Clear Clear [facility] Urine glucose measurement by automated test strip (mass/volume)Ordered By: Mckenzie Cherry on 02-16-2023 Glucose Auto test strip (U) [Mass/Vol] Normal mg/dL Normal [facility] Urine hemoglobin detection b y automated test stripOrdered By: Mckenzie Cherry on 02-16-2023 Hemoglobin Auto test strip Ql (U) Negative Negative [facility] Urine leukocyte esterase det ection by automated test stripOrdered By: Mckenzie Cherry on 02-16-2023 Leukocyte esterase Auto test strip Ql (U) 1+ Negative [facility] Urobilinogen Auto test strip (U) [Mass/Vol]Ordered By: Mckenzie Cherry on 02-16-2023 Urobilinogen (U) [Mass/Vol] Normal mg/dL Normal [facility] WBC Auto (Bld) [#/Vol]Ordere d By: Mckenzie Cherry on 02-16-2023 WBC (Bld) [#/Vol] 7.9 10*3/uL 4.1-10.5 [facility] pH Auto test strip (U)Ordere d By: Mckenzie Cherry on 02-16-2023 pH (U) 7.5 [pH] 5.0-9.0 [facility] CBC W/DIFFon 10-24-2020 ABS IMM GRANS 0.0 10*3/uL Normal 0.0-0.2 [facility] Comment on above: Performed By: #### 5 0103 #### [facility] [address] [facility]. [address] ABS NEUTROPHILS 2.7 10*3/uL Normal 1.6-7.6 [facility] Comment on above: Performed By: #### 5 0103 #### [facility] [address] [place] [address], [facility] Basophils (Bld) [#/Vol] 0.1 10*3/uL Normal 0.0-0.2 [facility] Comment on above: Performed By: #### 5 0103 #### [facility] [address] [place] [id number], [facility] Basophils/100 WBC (Bld) 1.0 % Normal 0.0-1.0 T [facility] Comment on above: Performed By: #### 5 0103 #### [facility] [address] [place] [address], [facility] Eosinophils (Bld) [#/Vol] 0.2 10*3/uL Normal 0.0-0.5 [facility] Comment on above: Performed By: #### 5 0103 #### [facility] [address] [place] [address], [facility] Eosinophils/100 WBC (Bld) 3.1 % Normal 0.0-6.0 [facility] Comment on above: Performed By: #### 5 0103 #### [facility] [address] [facility] Erythrocyte distribution width (RBC) [Ratio] 12.7 % Normal 11.5-15.0 [facility] Comment on above: Performed By: #### 5 0103 #### [facility] [address] [facility] [place] [address], [facility] Hematocrit (Bld) [Volume fraction] 42.9 % Normal 39.0-50.0 [facility] Comment on above: Performed By: #### 5 0103 #### [facility] [address] [facility] [place] [address], [facility] Hemoglobin (Bld) [Mass/Vol] 14.0 g/dL Normal 13.0-17.0 [facility] Comment on above: Performed By: #### 5 0103 #### [facility] [address] IMMATURE GRANS 0.2 % Normal 0.0-1.0 [facility] Comment on above: Performed By: #### 5 0103 #### [facility] [address] Lymphocytes (Bld) [#/Vol] 2.3 10*3/uL Normal 1.2-4.0 [facility] Comment on above: Performed By: #### 5 0103 #### [facility] [address] Lymphocytes/100 WBC (Bld) 40.2 % Normal 20.0-45.0 [facility] Comment on above: Performed By: #### 5 0103 #### [facility] [address] MCH (RBC) [Entitic mass] 28.1 pg Normal 27.0-33.0 [facility] Comment on above: Performed By: #### 5 0103 #### [facility] [address] MCHC (RBC) [Mass/Vol] 32.6 g/dL Normal 32.0-35.0 [facility] Comment on above: Performed By: #### 5 3 #### [facility] [address] MCV (RBC) [Entitic vol] 86.0 fL Normal 82.0-98.0 T [facility] Comment on above: Performed By: #### 5 3 #### [facility] [address] [place] [address], [facility] Monocytes (Bld) [#/Vol] 0.5 10*3/uL Normal 0.1-1.0 [facility] Comment on above: Performed By: #### 5 3 #### [facility] [address] [place] [address], [facility] MONOS 7.9 % Normal 5.0-12.0 [facility] Comment on above: Performed By: #### 5 0103 #### [facility] [address] [facility] [place] [address], [facility] Neutrophils/100 WBC (Bld) 47.6 % Normal 40.0-72.0 [facility] Comment on above: Performed By: #### 5 0103 #### [facility] [address] [facility] [place] [address], [facility] Nucleated RBC/100 WBC (Bld) [Ratio] 0 % Normal 0-0 [facility] Comment on above: Performed By: #### 5 0103 #### [facility] [address] [place] [address], [facility] PLAT CNT 283 10*3/uL Normal 150-400 [facility] Comment on above: Performed By: #### 5 0103 #### [facility] [address] [place] [address], [facility] RBC (Bld) [#/Vol] 4.99 10*6/uL Normal 4.20-5.70 [facility] Comment on above: Performed By: #### 5 0103 #### [facility] [address] [facility] [place] [address], [facility] WBC (Bld) [#/Vol] 5.72 10*3/uL Normal 4.00-10.60 [facility] Comment on above: Performed By: #### 5 3 #### [facility] [address] COMP METABOLIC PANELon 10-24 Albumin [Mass/Vol] 4.7 g/dL Normal 3.5-5.7 [facility] Comment on above: Performed By: #### 0 0121 ####[facility] ALKALINE PHOSPH 68 IU/L Normal 34-104 [facility] Comment on above: Performed By: #### 0 0121 ####[facility] [place] [address], [facility] ALT [Catalytic activity/Vol] 27 U/L Normal 7-52 [facility] Comment on above: Performed By: #### 0 0121 ####[facility] [facility] [place] [place] [address], [facility] AST [Catalytic activity/Vol] 35 U/L Normal 13-39 [facility] Comment on above: Performed By: #### 0 0121 ####[facility] [place] [address], [facility] Bilirubin [Mass/Vol] 0.3 mg/dL Normal 0.3-1.0 [facility] Comment on above: Performed By: #### 0 0121 ####[facility] [facility] [place] [place] [address], [facility] Calcium [Mass/Vol] 9.9 mg/dL Normal 8.6-10.3 [facility] Comment on above: Performed By: #### 0 0121 ####[facility] [facility] [place] [place] [address], [facility] Chloride [Moles/Vol] 101 mmol/L Normal 98-107 [facility] Comment on above: Performed By: #### 0 0121 ####[facility] [facility] [place] [place] [address], [facility] CO2 [Moles/Vol] 33 mmol/L High 21-31 [facility] Comment on above: Performed By: #### 0 0121 ####[facility] [place] [address], [facility] Creatinine [Mass/Vol] 0.94 mg/dL Normal 0.70-1.30 [facility] Comment on above: Performed By: #### 0 0121 ####[facility] [place] [address], [place] GFR/1.73 sq M.predicted among blacks MDRD (S/P/Bld) [Vol rate/Area] mL/min/{1.73_m2} Normal >60 [facility] Comment on above: Performed By: #### 0 0121 ####[facility] [place] [address], [place] GFR/1.73 sq M.predicted among non-blacks MDRD (S/P/Bld) [Vol rate/Area] mL/min/{1.73_m2} Normal >60 [facility] Comment on above: Performed By: #### 0 0121 ####[facility] [place] [address], [place] Glucose [Mass/Vol] 91 mg/dL Normal 70-100 [facility] Comment on above: Performed By: #### 0 0121 ####[facility] [place] [address], [place] Potassium [Moles/Vol] 4.5 mmol/L Normal 3.5-5.1 [facility] Comment on above: Performed By: #### 0 0121 ####[facility] [place] [address], [place] Protein [Mass/Vol] 7.6 g/dL Normal 6.0-8.3 [facility] Comment on above: Performed By: #### 0 0121 ####[facility] [place] [address], [place] Sodium [Moles/Vol] 138 mmol/L Normal 136-145 [facility] Comment on above: Performed By: #### 0 0121 ####[facility] [place] [address], [place] Urea nitrogen [Mass/Vol] 18 mg/dL Normal 7-20 [facility] Comment on above: Performed By: #### 0 0121 ####[facility] HEP B CORE AB IGM 10211ry HEP B CORE IGM Negative Normal Negative [facility] Comment on above: Result Comment: INTE RPRETIVE INFORMATION: Hepatitis B Core Ab, IgM This assay should not be used for blood donor screening, associated re-entry protocols, or for screening Human Cells, Tissues and Cellular and Tissue-Based Products (HCT/P). Performed By: [email or web address] [address] [place] [address] Mold Car Pusher: Loraine Burger MD HEP B E AB 1 HEP B E AB Positive Abnormal Negative [facility] Comment on above: Result Comment: The anti-HBe [...] one month may be useful. Performed By: [email or web address] [address] [place] [address] [employer] Pusher: Loraine Burger MD HEP B E AG 1 HEP B E AG Negative Normal Negative [facility] Comment on above: Result Comment: Perf ormed By: [email or web address] [address] [place] [address] [employer] Car Pusher: Loraine Burger MD HEP B VIRUS, QUANT by NAAT 3 [id number] 10-24-2020 HBV QNT BY NAAT 436 IU/mL Normal [facility] HBV QNT NAAT, INTERP Detected Abnormal Not Detected Th e [facility] Comment on above: Result Comment: INTE RPRETIVE [...] NAAT, LOG 3 log IU/mL Normal [facility] Comment on above: Result Comment: Perf ormed By: [email or web address] [address] [place] [address] [employer] Car Pusher: Loraine Burger MD HEP C GENOTYPE w/RFLX NS5A D RUG RESIS [id number] 10-24-2020 HEP C GENOTYPING Indeterminate Normal [facility] Comment on above: Result Comment: Hepa titis [...] C Viral RNA is tested using reverse aircraft part assembler polymerase chain reaction (RT-PCR) to amplify a specific portion of the 5' untranslated region (5' UTR) of the viral genome. The amplified nucleic acid is sequenced bi-directionally using dye-terminator chemistry ([employer]). Sequencing data is compared to a database [...] developed and its performance characteristics determined by [email or web address]. It has not been cleared or approved by the [place] Food and Drug Administration. This test was performed in a CLIA certified laboratory and is intended for clinical purposes. Performed By: [email or web address] [address] [place] [address] [employer] Car Pusher: Loraine Burger MD HEPATITIS A ABS TOTAL [id number] 10-24-2020 HEP A ABS(TOTAL) Negative Normal Negative [facility] Comment on above: Result Comment: Perf ormed By: [email or web address] [address] [place] [address] Mold Car Pusher: Loraine Burger MD HEPATITIS B CORE ANTIBODYon 10-24-2020 HEP B CORE AB Reactive Abnormal NONREACTIVE [facility] Comment on above: Performed By: #### 3 1423, 10628, 45534, 42339 ####[facility] HEPATITIS B SURFACE ANTIBODY QUANTon 10-24-2020 HEP B SURF AB 0.00 mIU/ml Normal [facility] Comment on above: Result Comment: INTE RPRETATION: NONREACTIVE<8.00 mIU/mL INDETERMINATE8.00 - 12.00 mIU/mL REACTIVE>12 mIU/mL Performed By: #### 3 1423, 45944, 13685, 54465 #### [facility] [address] HEPATITIS B SURFACE ANTIGEN QUALon 10-24-2020 HEP B SURF AG QUAL Reactive Abnormal NONREACTIVE [facility] Comment on above: Result Comment: HEPA TITIS B SURFACE ANTIGEN TO BE CONFIRMED Performed By: #### 3 1423, 39299, 93964, 27252 #### [facility] [address] HEPATITIS C BY TMAon 021 HCV Not detected Normal [facility] Comment on above: Order Comment: The A ptima HCV Quant Dx assay is a real-time aircraft part assembler-mediated amplification (TMA) test which has a dynamic [...] products. Performed By: #### 3 1750 #### [facility] [address] [facility]. [address] HCV TMA INTERPRETATION Not detected Normal [facility] Comment on above: Order Comment: The A ptima HCV Quant Dx assay is a real-time aircraft part assembler-mediated amplification (TMA) test which has a dynamic [...] products. Performed By: #### 3 1750 #### [facility] [address] [facility]. [address] HIV1 AND 2 COMBO 4Gon 2020 HIV COMBO Negative Normal NEGATIVE [facility] Comment on above: Performed By: #### 3 0625 #### [facility] [address] [facility]. [address] LIVER FIBROSIS CHRONIC VIRAL [id number] 10-24-2020 [id number] IBROMETER 176 mg/dL Normal 131-293 [facility] ALT [Catalytic activity/Vol] 31 U/L Normal 5-50 [facility] Amylase [Catalytic activity/Vol] 12 U/L Normal 7-51 [facility] AST [Catalytic activity/Vol] 42 U/L Normal 9-50 [facility] CIRRHOMETER PATIENT SCORE 0.01 Normal [facility] EER FIBROMETER REPORT See Note Normal [facility] Comment on above: Result Comment: Manda MCCALLUM Enhanced Report using the link below: -Direct access: [email or web address] FIBROMETER INTERPRETATION See Report Normal [facility] Comment on above: Result Comment: [16] [17] INTERPRETIVE INFORMATION: Fibrometer Interpretation Calculations for the final report are based on accurate data for age, gender, and platelet count. If any of this information needs to be corrected, please contact [employer] to request a recalculation. Client [...] developed and its performance characteristics determined by [email or web address]. It has not been cleared or approved by the [place] Food and Drug Administration. This test was performed in a CLIA certified laboratory and is intended for clinical purposes. Performed By: [email or web address] [address] [place] [address] Mold Car Pusher: Loraine Burger MD FIBROMETER PLATELET CT 283 k/uL Normal Th e [facility] FIBROMETER PLATELET IND 87 % Low 90-120 T he [facility] FIBROMETER PLATELET SCORE 0.26 Normal [facility] FIBROSIS METAVIR CLASSIFICATION F1[F1-F2] Normal [facility] Comment on above: Result Comment: INTE RPRETIVE [...] is possible INFLAMETER METAVIR CLASSIFICATION A0/A1 Normal [facility] Comment on above: Result Comment: INTE RPRETIVE INFORMATION: InflaMeter Metavir Classification InflaMeter (activity score) comments A0/A1 Equal probability between A0 and A1 A1/A2 Equal probability between A1 and A2 A2/A3 Equal probability between A2 and A3 INFLAMETER PATIENT SCORE 0.25 Normal [facility] PROTHROMBIN TIMEon 1 INR Coag (PPP) [Relative time] 1.02 {INR} Normal 0.91-1.16 [facility] Comment on above: Order Comment: Jessica [...] CHEST 1995;[id number]. Performed By: #### 5 6101 ####[place] [id number] [facility] [place] [address], [facility] PT Coag (PPP) [Time] 13.4 s Normal 12.3-14.8 [facility] Comment on above: Order Comment: Jessica julio drawn PT/INR Result Comment: ALL RESULTS MUST BE INTERPRETED WITH RESPECT TO BLOOD DRAWING ARTIFACT OR DILUTION ERROR OF ANTICOAGULANT AT THE TIME OF SAMPLING. Performed By: #### 5 6101 ####[facility] [facility].[address] hep b surf ag confirmon 08- HEP B SURF AG QUAL INTERP CONFIRMED Normal [facility] Comment on above: Performed By: #### 3 1423, 89951, 11102, 63656 ####[facility] [facility].[address] Vital Signs Date Time Vital Sign Value Performing Clinician Facility 05-01-2024 11:15-0500 Body height 172.72 cm Asiya Boyd APRN Work Phone: [facility] 05-01-2024 11:15-0500 Body mass index (BMI) [Ratio] 23.8 kg/m2 Asiya Boyd APRN Work Phone: [facility] 05-01-2024 11:15-0500 Body temperature 98.2 [degF] Asiya Boyd APRN Work Phone: [facility] 05-01-2024 11:15-0500 Body weight 71.21 kg Asiya Boyd APRN Work Phone: [facility] 05-01-2024 11:15-0500 Diastolic blood pressure 82 mm[Hg] Asiya Boyd APRN Work Phone: [facility] 05-01-2024 11:15-0500 Heart rate 106 /min Asiya Boyd APRN Work Phone: [facility] 05-01-2024 11:15-0500 SaO2% (BldA) [Mass fraction] 94 % Asiya Fisherirma SILICA MIXER OPERATOR Work Phone: [facility] 05-01-2024 11:15-0500 Systolic blood pressure 120 mm[Hg] Asiya Oliver SILICA MIXER OPERATOR Work Phone: [facility] 04-27-2024 14:44-0500 Body height 172.72 cm Asiya Fisherirma SILICA MIXER OPERATOR Work Phone: [facility] 04-27-2024 11:40-0500 Body temperature 98.2 [degF] Asiya Olvier SILICA MIXER OPERATOR Work Phone: [facility] 04-27-2024 11:40-0500 Diastolic blood pressure 88 mm[Hg] Asiya Oliver SILICA MIXER OPERATOR Work Phone: [facility] 04-27-2024 11:40-0500 Heart rate 62 /min Asiya Oliver SILICA MIXER OPERATOR Work Phone: [facility] 04-27-2024 11:40-0500 Respiratory rate 16 /min Asiya Fisherirma SILICA MIXER OPERATOR Work Phone: [facility] 04-27-2024 11:40-0500 SaO2% (BldA) [Mass fraction] 94 % Asiya Fisherirma SILICA MIXER OPERATOR Work Phone: [facility] 04-27-2024 11:40-0500 Systolic blood pressure 140 mm[Hg] Asiya Oliver SILICA MIXER OPERATOR Work Phone: [facility] 04-27-2024 05:38-0500 Body weight 78.8 kg Asiya Oliver SILICA MIXER OPERATOR Work Phone: [facility] 04-22-2024 13:07-0500 Inhaled oxygen flow rate 2 L/min Asiya Oliver SILICA MIXER OPERATOR Work Phone: [facility] 04-20-2024 23:00-0500 Diastolic blood pressure 70 mm[Hg] Asiya Boyd SILICA MIXER OPERATOR Work Phone: [facility] 04-20-2024 23:00-0500 Heart rate 87 /min Asiya Boyd SILICA MIXER OPERATOR Work Phone: [facility] 04-20-2024 23:00-0500 Respiratory rate 20 /min Asiya Boyd SILICA MIXER OPERATOR Work Phone: [facility] 04-20-2024 23:00-0500 SaO2% (BldA) [Mass fraction] 94 % Asiya Boyd SILICA MIXER OPERATOR Work Phone: [facility] 04-20-2024 23:00-0500 Systolic blood pressure 150 mm[Hg] Asiya Boyd SILICA MIXER OPERATOR Work Phone: [facility] 04-20-2024 20:00-0500 Body temperature 98.2 [degF] Asiya Boyd SILICA MIXER OPERATOR Work Phone: [facility] 04-20-2024 15:55-0500 Body height 172.72 cm Asiya Boyd SILICA MIXER OPERATOR Work Phone: [facility] 04-20-2024 15:55-0500 Body weight 69.6 kg Asiya Boyd SILICA MIXER OPERATOR Work Phone: [facility] 12-08-2023 09:51-0400 Diastolic blood pressure 70 mm[Hg] PHYSICIAN NO [facility] 12-08-2023 09:51-0400 Heart rate 76 /min PHYSICIAN NO [facility] 12-08-2023 09:51-0400 Respiratory rate 16 /min PHYSICIAN NO [facility] 12-08-2023 09:51-0400 SaO2% (BldA) [Mass fraction] 99 % PHYSICIAN NO [facility] 12-08-2023 09:51-0400 Systolic blood pressure 112 mm[Hg] PHYSICIAN NO [facility] 12-08-2023 07:50-0400 Body height 172.72 cm PHYSICIAN NO [facility] 12-08-2023 07:50-0400 Body weight 73.48 kg PHYSICIAN NO [facility] 11-29-2023 08:54-0400 Body height 172.72 cm [facility] 11-29-2023 08:54-0400 Body temperature 98.3 [degF] [facility] 11-29-2023 08:54-0400 Diastolic blood pressure 82 mm[Hg] [facility] 11-29-2023 08:54-0400 Heart rate 74 /min [facility] 11-29-2023 08:54-0400 Systolic blood pressure 130 mm[Hg] [facility] 11-22-2023 14:16-0400 Body mass index (BMI) [Ratio] 24.8 kg/m2 [facility] 11-22-2023 14:16-0400 SaO2% (BldA) [Mass fraction] 95 % [facility] 11-22-2023 13:54-0400 Body height 172.72 cm [facility] 11-22-2023 13:54-0400 Body temperature 97.7 [degF] [facility] 11-22-2023 13:54-0400 Body weight 74.16 kg [facility] 11-22-2023 13:54-0400 Diastolic blood pressure 66 mm[Hg] [facility] 11-22-2023 13:54-0400 Heart rate 60 /min [facility] 11-22-2023 13:54-0400 Systolic blood pressure 104 mm[Hg] [facility] 10-19-2023 09:01-0400 Body height 172.72 cm [facility] 10-19-2023 09:01-0400 Body mass index (BMI) [Ratio] 24.5 kg/m2 [facility] 10-19-2023 09:01-0400 Body weight 73.02 kg [facility] 10-19-2023 09:01-0400 Diastolic blood pressure 66 mm[Hg] [facility] 10-19-2023 09:01-0400 Heart rate 72 /min [facility] 10-19-2023 09:01-0400 SaO2% (BldA) [Mass fraction] 97 % [facility] 10-19-2023 09:01-0400 Systolic blood pressure 108 mm[Hg] [facility] 07-28-2023 07:01-0400 Body temperature 97.9 [degF] Hany Fuentes MD Work Phone: [facility] [employer] 07-28-2023 07:01-0400 Diastolic blood pressure 79 mm[Hg] Hany Fuentes MD Work Phone: [employer] 07-28-2023 07:01-0400 Heart rate 75 /min Hany Fuentes MD Work Phone: [employer] 07-28-2023 07:01-0400 Respiratory rate 18 /min Hany Fuentes MD Work Phone: [employer] 07-28-2023 07:01-0400 SaO2% (BldA) [Mass fraction] 96 % Hany Fuentes MD Work Phone: [employer] 07-28-2023 07:01-0400 Systolic blood pressure 130 mm[Hg] Hany Fuentes MD Work Phone: [employer] 04-02-2023 11:34-0500 Diastolic blood pressure 67 mm[Hg] [employer] 04-02-2023 11:34-0500 Heart rate 68 /min [employer] 04-02-2023 11:34-0500 Respiratory rate 16 /min [employer] 04-02-2023 11:34-0500 SaO2% (BldA) [Mass fraction] 100 % [employer] 04-02-2023 11:34-0500 Systolic blood pressure 121 mm[Hg] [employer] 04-02-2023 09:16-0500 Body temperature 97.11 [degF] [facility] [employer] 04-02-2023 09:16-0500 Body height 172.7 cm [employer] 04-02-2023 09:16-0500 Body mass index (BMI) [Ratio] 24.33 kg[facility]2 [facility] 09:16-0500 Body weight 72.58 kg [facility] [employer] 03-06-2023 19:17-0500 Body height 172.7 cm [facility] [employer] 03-06-2023 19:17-0500 Body mass index (BMI) [Ratio] 24.33 kg/m2 [facility] [employer] 03-06-2023 19:17-0500 Body temperature 97.81 [degF] [facility] [employer] 03-06-2023 19:17-0500 Body weight 72.58 kg [facility] [employer] 03-06-2023 19:17-0500 Heart rate 78 /min [facility] [employer] 03-06-2023 19:17-0500 Respiratory rate 18 /min [facility] [employer] 03-06-2023 19:17-0500 SaO2% (BldA) [Mass fraction] 98 % [facility] [employer] 03-06-2023 14:50-0500 Diastolic blood pressure 81 mm[Hg] Katie Denia DO Work Phone: [facility] [employer] 03-06-2023 14:50-0500 Heart rate 64 /min Katie Dneia DO Work Phone: [facility] [employer] 03-06-2023 14:50-0500 Respiratory rate 16 /min Katie Denia DO Work Phone: [facility] [employer] 03-06-2023 14:50-0500 SaO2% (BldA) [Mass fraction] 97 % Katie Denia DO Work Phone: [facility] [employer] 03-06-2023 14:50-0500 Systolic blood pressure 120 mm[Hg] Katie Denia DO Work Phone: [facility] [employer] 03-06-2023 07:27-0500 Body temperature 97.81 [degF] Katie Denia DO Work Phone: [facility] [employer] 03-02-2023 13:00-0500 Body height 172.72 cm Imad Asaad Other [place] [employer] Other 03-02-2023 13:00-0500 Body mass index (BMI) [Ratio] 23.26 kg/m2 Imad Asaad Other [employer] Other 03-02-2023 13:00-0500 Body weight 69.4 kg Imad Asaad Other [employer] Other 03-02-2023 13:00-0500 Diastolic blood pressure 66 mm[Hg] Imad Asaad Other [employer] Other 03-02-2023 13:00-0500 Systolic blood pressure 110 mm[Hg] Imad Asaad Other [employer] Other 02-16-2023 20:05-0500 Body temperature 98.8 [degF] PHYSICIAN NO [facility] 02-16-2023 20:05-0500 Diastolic blood pressure 95 mm[Hg] PHYSICIAN NO [facility] 02-16-2023 20:05-0500 Heart rate 94 /min PHYSICIAN NO [facility] 02-16-2023 20:05-0500 Respiratory rate 20 /min PHYSICIAN NO [facility] 02-16-2023 20:05-0500 SaO2% (BldA) [Mass fraction] 96 % PHYSICIAN NO [facility] 02-16-2023 20:05-0500 Systolic blood pressure 156 mm[Hg] PHYSICIAN NO [facility] 02-16-2023 14:24-0500 Body height 172.72 cm PHYSICIAN NO [facility] 02-16-2023 14:24-0500 Body weight 67.05 kg PHYSICIAN NO [facility] Encounters Encounter Date Encounter Type Care Provider Facility Start: 05-04-2024 End: 05-04-2024 Patient encounter procedure Asiya Boyd SILICA MIXER OPERATOR Work Phone: [facility] [place] Work Phone: Start: 05-04-2024 End: 05-04-2024 ambulatory Rosalinda Marianalillian Facility:[facility] Start: 05-01-2024 End: 05-01-2024 ambulatory Asiya Boyd SILICA MIXER OPERATOR Work Phone: [facility] Work Phone: Start: 05-01-2024 End: 05-01-2024 Patient encounter procedure Asiya Hodgsonr SILICA MIXER OPERATOR Work Phone: [facility] Physician [facility] Work Phone: Start: 04-27-2024 Non-patient / Non-visit Asiya Sageacher SILICA MIXER OPERATOR Work Phone: [facility] Physician [facility] Work Phone: Start: 04-27-2024 Non-patient / Non-visit Asiya Sageacher SILICA MIXER OPERATOR Work Phone: [facility] Physician [facility] Work Phone: Start: 04-25-2024 Non-patient / Non-visit Asiya Sageacher SILICA MIXER OPERATOR Work Phone: [facility] Physician [facility] Vascular S[facility] Work Phone: Start: 04-20-2024 Non-patient / Non-visit Asiya Sageacher SILICA MIXER OPERATOR Work Phone: [facility] Physician [facility] Work Phone: Start: 04-20-2024 End: 04-27-2024 Evaluation and management of inpatient Asiya Hodgsonr SILICA MIXER OPERATOR Work Phone: [facility] Work Phone: Start: 04-20-2024 End: 04-20-2024 ambulatory Asiya Hodgsonr SILICA MIXER OPERATOR Work Phone: [facility] Work Phone: Start: 04-20-2024 End: 04-20-2024 Departed Referred Asiya Boyd SILICA MIXER OPERATOR Work Phone: [facility] Start: 12-22-2023 End: 12-22-2023 Patient encounter procedure PHYSICIAN NO [facility] Work Phone: Start: 12-22-2023 End: 12-22-2023 ambulatory PHYSICIAN NO [facility] Work Phone: Start: 12-08-2023 Non-patient / Non-visit PHYSICIAN NO [facility] Work Phone: Start: 12-08-2023 End: 12-08-2023 Admission to same day surgery center PHYSICIAN NO [facility] Work Phone: Start: 12-08-2023 End: 12-08-2023 ambulatory PHYSICIAN NO [facility] Work Phone: Start: 11-29-2023 End: 11-29-2023 Departed Referred SILICA MIXER OPERATOR Asiya Boyd Work Phone: [facility] [place] Work Phone: Start: 11-29-2023 End: 11-29-2023 ambulatory PHYSICIAN NO [facility] Work Phone: Start: 11-29-2023 End: 11-29-2023 Patient encounter procedure [facility] Work Phone: Start: 11-23-2023 Non-patient / Non-visit [facility] Work Phone: Start: 11-22-2023 End: 11-22-[address] [facility] Work Phone: Start: 11-22-2023 End: 11-22-2023 Patient encounter procedure [facility] Work Phone: Start: 10-19-2023 End: 10-19-[address] [facility] Work Phone: Start: 10-19-2023 End: 10-19-2023 Patient encounter procedure [facility] Phys[facility] Work Phone: Start: 10-08-2023 Non-patient / Non-visit [facility] Phys[facility] Work Phone: Start: 07-28-2023 End: 07-28-2023 Emergency department patient visit [facility] Start: 07-28-2023 End: 07-28-2023 Emergency department patient visit Hany Fuentes MD Work Phone: [facility] EM[facility]Y [facility] Comment on above: Lumbar strain, initi al encounter (Primary Dx) Start: 04-02-2023 End: 04-02-2023 Emergency department patient visit [facility] Start: 04-02-2023 End: 04-02-2023 Emergency department patient visit [facility] EMERGENCY DEPT Comment on above: RSV (respiratory syn cytial virus infection) (Primary Dx) Start: 03-06-2023 End: 03-06-2023 Emergency department patient visit [facility] Start: 03-06-2023 End: 03-06-2023 Emergency department patient visit [facility] EMERGENCY DEPT Comment on above: Encounter for monito ring Suboxone maintenance therapy (Primary Dx) Start: 03-06-2023 End: 03-06-2023 Emergency department patient visit KATIE LOZA [facility] Start: 03-06-2023 End: 03-06-2023 Emergency department patient visit Katie Loza DO Work Phone: [facility] Comment on above: History of hepatitis (Primary Dx); Transaminitis; History of opioid abuse (CMS/HCC) (HCC) Start: 03-02-2023 End: 03-02-2023 ambulatory Imad Asaad Other [employer] Other Start: 03-02-2023 [facility] visit new patient Imad Asaad [facility] Start: 02-16-2023 End: 02-16-2023 Emergency department patient visit PHYSICIAN NO [facility] Work Phone: Start: 05-11-2022 End: 05-11-2022 ambulatory PHYSICIAN NO [facility] Work Phone: Start: 05-11-2022 End: 05-11-2022 Patient encounter procedure PHYSICIAN NO [facility] Work Phone: Start: 02-15-2022 End: 02-15-[address] CHINEDU CESAR Facility: Start: 09-15-2021 End: 09-23-2021 ambulatory UNKNOWN PROVIDER Facility:[facility] Procedures Date Procedure Procedure Detail Performing Clinician Start: 04-25-2024 Duplex scan veins of upper limb Asiya Boyd APRN Work Phone: Start: 04-25-2024 Plain chest X-ray Dee Boyd APRN Work Phone: Start: 04-25-2024 Plain X-ray abdomen Savana Boyd APRN Work Phone: Start: 04-25-2024 Bacteria identified in Blood by Culture Asiya Boyd APRN Work Phone: Start: 04-25-2024 Respiratory Panel (PCR) Asiya Boyd APRN Work Phone: Start: 04-25-2024 Urine culture Asiya Boyd APRN Work Phone: Start: 04-25-2024 Needle biopsy Asiya Boyd APRN Work Phone: Start: 04-25-2024 US angiography Asiya Boyd APRN Work Phone: Start: 04-21-2024 Urine culture Asiya Boyd APRN Work Phone: Start: 04-20-2024 Plain chest X-ray Dee Boyd APRN Work Phone: Start: 04-20-2024 Urine culture Asiya Boyd SILICA MIXER OPERATOR Work Phone: Start: 12-08-2023 Colonoscopy PHYSICIAN NO FAMILY Start: 11-29-2023 Investigation of transfusion reaction PHYSICIAN NO FAMILY Start: 04-02-2023 Radiologic exam ches t single view Maribeth Veliz SILICA MIXER OPERATOR Work Phone: Start: 04-02-2023 SARS-COV-2, FLU A/B, AND RSV COMBO Maribethana rosa Veliz SILICA MIXER OPERATOR Work Phone: Start: 04-02-2023 Urinalysis complete panel - Urine Maribeth Veliz SILICA MIXER OPERATOR Work Phone: Start: 04-02-2023 Urnls dip stick/tabl et reagent auto microscopy Maribeth Veliz SILICA MIXER OPERATOR Work Phone: Start: 03-06-2023 Hepatic function panel Katie Loza DO Work Phone: Plan of Treatment Date Care Activity Detail Author Start: 2040 RSV Immunization aged 60 or older (1 - 1-dose 60+ series) RSV Immunization aged 60 or older (1 - 1-dose 60+ series) [facility] Start: 2030 Zoster Vaccines (1 of 2) Zoster Vaccines (1 of 2) [facility] Start: 04-27-2024 [facility] Start: 04-25-2024 [facility] Start: 04-25-2024 Bacteria identified in Blood by Culture Blood Culture [facility] Start: 04-24-2024 Referral to vascular surgeon [facility] Start: 04-23-2024 Renal function 1999 panel - Serum or Plasma [facility] Start: 04-23-2024 [facility] Start: 04-22-2024 Renal function 2000 panel - Serum or Plasma [facility] Start: 04-22-2024 [facility] Start: 04-21-2024 CT guided biopsy [facility] Start: 04-21-[address] guided biopsy [facility] Start: 04-21-2024 [facility] Start: 04-20-2024 End: 04-20-2024 [facility] Start: 04-20-2024 Hepatitis B core antibody measurement [facility] Start: 04-20-2024 Hospital admission [facility] Start: 04-20-2024 Administration of prophylactic treatment [facility] Start: 04-20-2024 Referral to analytics associate [facility] Start: 04-20-2024 End: 04-20-2024 Consultation [facility] Start: 04-20-2024 Immunofixation for Urine [facility] Start: 04-20-2024 Bacteria identified in Urine by Culture Urine Culture [facility] Start: 04-20-2024 Urine culture [facility] Start: 12-08-2023 [facility] Start: 11-29-2023 Microscopic observation [Identifier] in Unspecified specimen by Gram stain [facility] Start: 11-29-2023 [facility] Start: 10-31-2023 Influenza vaccination Influenza Vaccine (Season Ended) [facility] Start: 10-19-2023 Patient referral [facility] Work Phone: Start: 02-16-2023 [facility] Start: 10-30-2022 COVID-19 Vaccine ( season) COVID-19 Vaccine ( season) [facility] Start: 10-30-2022 Influenza vaccination Influenza Vaccine (#1) [facility] Start: 1999 DTaP/Tdap/Td Vaccines (1 - Tdap) DTaP/Tdap/Td Vaccines (1 - Tdap) [facility] Start: 1999 Hepatitis A Vaccines (1 of 2 - Risk 2-dose series) Hepatitis A Vaccines (1 of 2 - Risk 2-dose series) [facility] Start: 1999 Hepatitis B Vaccines (1 of 3 - 19+ 3-dose series) Hepatitis B Vaccines (1 of 3 - 19+ 3-dose series) [facility] Start: 1998 Hepatitis C screening Hepatitis C Screening [facility] Start: 1993 Varicella vaccination Varicella Vaccines (1 of 2 - 13+ 2-dose series) [facility] Start: 1992 Depression Screening Depression Screening [facility] Start: 1981 MMR Vaccines (1 of 1 - Standard series) MMR Vaccines (1 of 1 - Standard series) [facility] Start: 1981 Varicella vaccination Varicella Vaccines (1 of 2 - 2-dose childhood series) [facility] Start: 1980 COVID-19 Vaccine (#1) COVID-19 Vaccine (#1) [facility] Start: 1980 Hepatitis B Vaccines (1 of 3 - 3-dose series) Hepatitis B Vaccines (1 of 3 - 3-dose series) [facility] Start: 1980 HIV screening HIV Screening [facility] Start: 1980 Lipid panel Lipid Panel [facility] Albumin [Mass/volume ] in Serum or Plasma [facility] Albumin/Globulin ratio [facility] Anion gap measurement [facility] Antibody measurement [facility] aPTT in Platelet poo r plasma by Coagulation assay [facility] Bacteria identified in Unspecified specimen by Aerobe culture [facility] Bacteria identified in Unspecified specimen by Anaerobe culture [facility] Complement C3 [Mass/ volume] in Serum or Plasma [facility] Complement C4 [Mass/ volume] in Serum or Plasma [facility] Cryoglobulin [Presen ce] in Serum [facility] Electrophoresis: [id number] [facility] Electrophoresis: [id number] [facility] Electrophoresis: beta-globulin [facility] Electrophoresis: jojo ma globulin [facility] Erythrocyte distribu tion width [Ratio] by Automated count [facility] Erythrocytes [#/volu me] in Blood [facility] Globulin [Mass/volum e] in Serum [facility] Glomerular basement membrane Ab [Units/volume] in Serum by Immunoassay [facility] Glucose measurement estimated from glycated hemoglobin [facility] Hematocrit [Volume F raction] of Blood [facility] Hemoglobin [Mass/vol ume] in Blood [facility] Hemoglobin A1c/Hemoglobin.total in Blood [facility] Hepatitis A virus an tibody, IgM type [facility] Hepatitis A virus an tibody, IgM type [facility] Hepatitis B core ant ibody measurement, IgM type [facility] Hepatitis B core ant ibody measurement, IgM type [facility] Hepatitis B virus rice rface Ab [Presence] in Serum [facility] Hepatitis B virus rice rface Ag [Presence] in Serum or Plasma by Immunoassay [facility] Hepatitis B virus rice rface Ag [Presence] in Serum or Plasma by Immunoassay [facility] Hepatitis C virus Ig G Ab [Presence] in Serum or Plasma by Immunoassay [facility] Hepatitis C virus Ig G Ab [Presence] in Serum or Plasma by Immunoassay [facility] Hepatitis C virus RN A [log units/volume] (viral load) in Serum or Plasma by MONTS[place] with probe detection [facility] Hepatitis C virus RN A [log units/volume] (viral load) in Serum or Plasma by [place] with probe detection [facility] Hepatitis C virus RN A [Units/volume] (viral load) in Serum or Plasma by [place] with probe detection [facility] Hepatitis C virus RN A [Units/volume] (viral load) in Serum or Plasma by [place] with probe detection [facility] Homogenous nuclear A b pattern [Titer] in Serum [facility] IgA [Mass/volume] in Serum or Plasma [facility] IgG [Mass/volume] in Serum or Plasma [facility] IgM [Mass/volume] in Serum or Plasma [facility] INR in Platelet poor plasma by Coagulation assay [facility] [place] light chains.f ree [Mass/volume] in Serum [facility] [place] light chains.free/Lambda light chains.free [Mass Ratio] in Serum [facility] Lambda light chains. free [Mass/volume] in Serum or Plasma [facility] Leukocytes [#/volume ] corrected for nucleated erythrocytes in Blood by Automated coun [facility] MCH [Entitic mass] b y Automated count [facility] MCHC [Mass/volume] b y Automated count [facility] MCV [Entitic volume] by Automated count [facility] Myeloperoxidase Ab [Units/volume] in Serum by Immunoassay [facility] Neutrophil cytoplasm ic Ab.classic [Titer] in Serum by Immunofluorescence [facility] Nuclear Ab [Titer] in Serum [facility] P-ANCA measurement [facility] Patient Education [facility] Work Phone: Patient referral [facility] Work Phone: Phosphatidylethanol [Mass/volume] in Blood [facility] Platelet mean volume [Entitic volume] in Blood by Automated count [facility] Platelets [#/volume] in Blood [facility] Protein [Mass/volume ] in Serum or Plasma [facility] Proteinase 3 Ab [Units/volume] in Serum by Immunoassay [facility] Prothrombin time (PT) [facility] nds [facility] Serum immunofixation [facility] US Upper extremity v ein - right [facility] Payers Date Payer Category Payer Self-pay 2023 Medicaid [id number] 2023 Medicaid [employer] [place] [id number] 2023-Present [phone] [address] [place] [address] Medicaid HMO [id number] 2021 Unknown [id number] 1980 Unknown [id number] 1980 Unknown [id number] 1959 Medicaid [id number] Private Health Insurance [id number] Unknown [id number] Unknown [id number] Unknown [id number] Unknown [id number] Unknown [id number] Unknown [id number] Social History Date Type Detail Facility Tobacco smoking stat us KYIS Unknown if ever smoked [facility] Work Phone: Start: 1980 Sex Assigned At Male F [facility] Start: 02-16-2023 End: 03-06-2023 Tobacco smoking status NHIS Never smoked tobacco (finding) [facility] Start: 03-06-2023 Sex Assigned At S [facility] Start: 03-06-2023 Alcohol intake Current non-dr burrer marker axle of alcohol (finding) [facility] Start: 03-06-2023 History of Social function [facility] How often to you hav e a drink containing alcohol? Never [facility] How many standard drinks containing alcohol do you have on a typical day? Patient does not drink [facility] Start: 03-06-2023 Gender identity Identifies as male gender (finding) [facility] Start: 03-06-2023 Sexual orientation Heterosexual (fin ding) [facility] Start: 10-19-2023 End: 11-22-2023 Tobacco smoking status NHIS Ex-smoker (finding) [facility] Start: 11-24-2023 End: 04-28-2024 Tobacco smoking status NHIS Smoker (finding) [facility] Start: 04-21-2024 End: 05-04-2024 Sex Male (finding) [facility] Start: 04-26-2024 SDOH Follow up SDOH Follow up [facility] Work Phone: Goals Date Patient Goal Desired Activity /State Functional Status Date Assessment Result Facility 04-27-2024 Functional status Patient at Baseline [facility] Work Phone: 04-20-2024 Functional status Patient Not at Baseline [facility] Work Phone: Mental Status Date Assessment Result Facility 04-27-2024 Cognitive function Cognitive Sta tus Patient at Baseline [facility] Work Phone: 04-20-2024 Cognitive function Cognitive Sta tus Patient at Baseline [facility] Work Phone: Clinical Notes 03-02-2023 to 04-27-2024 Note Date & Type Note Facility 04-27-2024 Radiology Diagnostic study note [facility] Main [place] [id number] Ultrasound Report Signed Patient: Ness Beaver MR#: [id number] 1230 : 1980 Acct:[id number] Age/Sex: 44 / M ADM Date: 5 Loc: Room: [address] [place] [address] Type: ADM IN Attending Dr: Rosalinda Jones MD Ordering Provider: Rosalinda Jones MD Date of Service: 04/25/24 US/US venous duplex UE RT: DVT Copies to: Rosalinda Jones MD~ Right upper extremity venous duplex examination Indication for study: Painful swollen right arm PROCEDURE: Color-flow duplex scanning is used to interrogate the venous anatomy of the right upper extremity. The right jugular vein could not be examined due to an indwelling dialysis catheter. The right and left subclavian veins and theright axillary vein show good compressibility, color-flow, and augmentation. The left jugular vein is compressible with good color flow. There is acute thrombophlebitis involving the right brachial veins from the mid to distal aspect. In these regions there is loss of color flow and compressibility. The basilic vein and cephalic vein are compressible. US/US venous duplex UE RT IMPRESSION: This examination demonstrates acute thrombophlebitis involving the right paired brachial veins. The axillary vein and subclavian veins are free of thrombus at this time. There is no involvement of the basilic or cephalic veins at this time. Impression dictated by: Brian Deal M.D.04/27/2024 4:12 PM Dictation Location: [place] [address] Tech: Carmelina Quintero Transcribed By: HALINA 04/27/24 161 Dictated By: Brian Deal MD 04/27/24 1608 Signed By: 04/27/24 161 [facility] Work Phone: 04-27-2024 Progress note Note Date/Time April 27, 2024 11:48am [facility] [address] [place] [address] Nephrology Progress Note Signed Patient: Ness Beaver MR#: [id number] 1230 : 1980 Acct:[id number] Age/Sex: 44 / M Adm Date: 5 Loc: Room: [address] [place] [address] Type: ADM IN Attending Dr: Rosalinda Jones MD Copies to: ~ Date of Service: 04/27/2024 Subjective Subjective Narrative: This is a 44-year male with a medical history of hepatitis B and C, polysubstance abuse was presented to the [facility] for nausea and vomiting. On evaluation emergency room patient was found to have a acute kidneyinjury with elevated serum creatinine 20 mg/dL and BUN 176 mg/dL. He was also found to have a hyperkalemia with serum potassium 6.7 mmol/L and metabolic acidosis serum bicarbonate 14 mmol/L. Patient was found to have anemia with a hemoglobin 12.2 g/dL. His CK was 742. Patient has a history of polysubstance abuse and reported to use of meth and cocaine in the past. He is also follows with the methadone clinic. Patient was treated for hyperkalemia with calcium gluconate, insulin plus D50 and Lokelma. Patient was started on a bicarbonate drip. He was given sodium bicarbonate 100 mEq IV x 1 dose and was transferred to [facility] [place] emergent dialysis. Interim history Patient is up in the bed. He feels comfortable. He had the flu symptoms that is getting better with no more fever. He was tested positive for influenza A. Patient's continue to have good urine output with gradual improvement of serum creatinine. Last hemodialysis was on April 22. Hemodialysis catheter was removed Kidney biopsy was reviewed and showed evidence of severe acute tubular necrosis with myoglobin casts suggestive of rhabdomyolysis as expected Exam Physical Exam Vital Signs: Temp Pulse Resp BP Pulse Ox O2 Del Method O2 Flow Rate 36.6 C 85 20 153/88 H 95 Room Air 2 04/27/24 09:06 04/27/24 09:06 04/27/24 09:06 04/27/24 09:06 04/27/24 09:06 04/27/24 09:06 04/22/24 13:07 Narrative: Constitutional: Appears comfortable and not in distress HEENT: No pallor or Jaundice Cardiovascular: RRR, normal S1-S2, no gallop or rub, No JVD Respiratory: Good bilateral air entry no wheezing or crackles Gastrointestinal: Soft, non tender, positive bowel sounds Extremities: No edema Skin: No rashes or bruises Musculoskeletal: No joints swellings or inflammation Neurology: Awake, alert, oriented ?3, No focal motor or sensory deficits Psych: Normal mood and affect Vascular access: Right IJ temporary hemodialysis catheter. It has poor blood flow during last 2 dialysis treatments Objective Intake and Output I&O: Intake & Output 04/24/24 04/25/24 04/26/24 04/27/24 23:59 23:59 23:59 23:59 Intake Total 700 / 700 880 / 880 900 / 900 500 / 500 Output Total 1100 / 1100 1905 / 1905 2250 / 2250 3000 / 3000 Balance -400 / -400 -1025 / -1025 -1350 / -1350 -2500 / -2500 Weight 72.8 kg 75.8 kg 79.9 kg 78.8 kg Meds and Allergies Meds: Active Medications Acetaminophen (Acetaminophen 325 Mg Tablet) 650 mg PO Q4H PRN PRN Reason: Pain Scale 1 - 3 or fever Stop: 04/20/25 17:06 Last Admin: 04/26/24 21:30 Dose: 650 mg Bisacodyl (Bisacodyl 5 Mg Tablet.Dr) 10 mg PO DAILY PRN PRN Reason: Constipation Stop: 04/20/25 17:06 Last Admin: 04/27/24 09:10 Dose: 10 mg Heparin Sodium (Porcine) (Heparin 10,000 Unit/10 Ml Vial) 2,200 unit IV-PUSH PRN PRN PRN Reason: Dialysis Stop: 04/20/25 15:57 Last Admin: 04/22/24 10:30 Dose: 2,200 unit Heparin Sodium (Porcine) (Heparin 5,000 Unit/Ml Vial) 5,000 unit SUBCUT Q12HR SAGAR Stop: 04/20/25 20:59 Last Admin: 04/27/24 09:21 Dose: 5,000 unit Heparin Sodium (Porcine) (Heparin 10,000 Unit/10 Ml Vial) 3,000 unit IV PRN PRN PRN Reason: Dialysis Stop: 04/20/25 19:25 Last Admin: 04/22/24 10:30 Dose: 3,000 unit Heparin Sodium (Porcine) (Heparin 10,000 Unit/10 Ml Vial) 1,500 unit IV PRN PRN PRN Reason: Dialysis Stop: 04/20/25 19:25 Last Admin: 04/22/24 10:31 Dose: 1,500 unit Sodium Chloride (0.9% Sodium Chloride 1,000 Ml) 1,000 mls @ 0 mls/hr MISCELLANE.Q0M PRN PRN Reason: Dialysis Stop: 04/20/25 16:59 Last Infusion: 04/22/24 10:32 Dose: Infused Lactulose (Lactulose 20 Gm/30 Ml Udc) 30 gm PO Q6H PRN PRN Reason: Constipation Stop: 04/25/25 12:03 Methadone HCl (Methadone 10 Mg/Ml Oral Concentrate) 220 mg PO DAILY [facility] Last Admin: 04/27/24 09:21 Dose: 220 mg Metoprolol Tartrate (Metoprolol Tartrate 5 Mg/5 Ml Vial) 5 mg IV-PUSH Q4H PRN PRN Reason: Blood Pressure Stop: 04/20/25 17:14 Last Admin: 04/24/24 17:12 Dose: 5 mg Nicotine (Nicotine Patch 14 Mg/24hr 1 Each Patch.Td24) 1 each TRANSDERML DAILY [facility] Stop: 05/03/24 09:01 Last Admin: 04/27/24 09:11 Dose: 1 each Nicotine Polacrilex (Nicotine Polacrilex 2 Mg Gum) 2 mg BUCCAL Q2HR PRN PRN Reason: Nicotine Cravings Stop: 04/20/25 17:06 Oseltamivir Phosphate (Oseltamivir Phosphate 30 Mg Capsule) 30 mg PO Q48H SAGAR Stop: 04/29/24 21:01 Pantoprazole Sodium (Pantoprazole 40 Mg Vial) 40 mg IV-PUSH DAILY [facility] Stop: 04/25/25 13:49 Last Admin: 04/27/24 09:21 Dose: 40 mg Polyethylene Glycol (Polyethylene Glycol 3350 17 Gm Powd.Pack) 17 gm PO BID [facility] Stop: 04/20/25 20:59 Last Admin: 04/27/24 09:17 Dose: 17 gm Prochlorperazine Edisylate (Prochlorperazine Edisylate 10 Mg/2 Ml Vial) 5 mg IV-PUSH Q4H PRN PRN Reason: Nausea OR Vomiting Stop: 04/20/25 17:14 Last Admin: 04/25/24 14:27 Dose: 5 mg Sennosides (Sennosides 8.6 Mg Tablet) 17.2 mg PO BID [facility] Stop: 04/25/25 12:29 Last Admin: 04/27/24 09:11 Dose: 17.2 mg Sevelamer Carbonate (Sevelamer Carbonate 800 Mg Tablet) 1,600 mg PO TID.WITH.MEALS [facility] Stop: 04/24/25 16:59 Last Admin: 04/27/24 09:10 Dose: 1,600 mg Sodium Chloride (Sodium Chloride 0.9 % 10 Ml Syringe) 0 ml IV-PUSH PRN PRN PRN Reason: Flush Stop: 04/20/25 16:59 Last Admin: 04/22/24 10:29 Dose: 40 ml Sodium Chloride (Sodium Chloride 0.9 % 10 Ml Syringe) 0 ml IV-PUSH PRN PRN PRN Reason: Flush Stop: 04/20/25 17:06 Last Admin: 04/20/24 19:29 Dose: 60 ml Sodium Chloride (Sodium Chloride 0.9 % 10 Ml Vial.Pf) 10 ml INJECTION PRN PRN PRN Reason: Dilution Stop: 04/25/25 13:47 Last Admin: 04/25/24 14:27 Dose: 10 ml Sodium Chloride (Sodium Chloride 0.9 % 10 Ml Syringe) 10 ml IV-PUSH PRN PRN PRN Reason: Flush Stop: 04/25/25 13:47 Allergies No Known Allergies Allergy (Verified 11/29/23 08:52) Results - Nephrology Labs 04/26/24 04:13 04/27/24 05:19 Labs: 04/27/24 05:19 BUN 67 H Creatinine 10.53 H D Phosphorus 8.9 H Albumin 4.1 Radiology Impressions Impressions - last 24 hours: Impressions Vessel Mapping-Hemodialysis Access 04/25/24 09:40 IMPRESSION: Positive study for left brachial vein DVT. Impression dictated by: Chinedu Escalante MD04/26/2024 11:59 AM Dictation Location: [place] [address] Any impression(s) listed above is documentation that was entered by the reading physician into a diagnostic report(s) for Ness Beaver. I have reviewedthe report(s) and am incorporating any findings in the treatment plan of this patient where applicable. A&P - Nephrology Assessment/Plan (1) JASMINA (acute kidney injury): Assessment/Problem Details: Patient is a JASMINA due to unclear etiology. Differential diagnoses are RPGN or ATN. Patient has no evidence of obstructive uropathy on CAT scan. Patient has history hepatitis B and C. He had polysubstance abuse as well. workup for RPGN including ANCA, serum cryoglobulin, anti-GBM, lupus, C3, C4 and paraproteinemia all came back unremarkable. Kidney biopsy showed evidence of ATN and myoglobin casts suggestive of rhabdomyolysis as expected. (2) Hyperkalemia: Assessment/Problem Details: He had hyperkalemia due to the JASMINA and metabolic acidosis. His hyperkalemia wascorrected with dialysis. (3) Metabolic acidosis: Assessment/Problem Details: He had metabolic acidosis likely due to the JASMINA. His metabolic acidosis corrected with dialysis. (4) Hepatitis C: Assessment/Problem Details: Patient has a known history of hepatitis C. (5) Anemia: Assessment/Problem Details: He has a anemia due to the unclear etiology. He has a normal haptoglobin with mildly elevated LDH and no evidence of schistocytes on peripheral smear so possibility of hemolytic anemia is low. He has normal iron stores B12 and folate level. Plan * Urine output has increased serum creatinine started to decrease 10.53 mg/dL. Patient has no acidosis or hyperkalemia. Last hemodialysis was on April 22. No need for more dialysis at this point. Renal function expected to continue to improve. * Patient is still on sevelamer to 1600 mg 3 times daily for hyperphosphatemia. Phosphorus is expected to improve with improvement of renal function. Sevelamer can be stopped at the time of discharge Patient has incidental finding of right brachial vein thrombus which possibly related to IV access or drug abuse. It is not clear if the thrombus is acute orchronic. Patient just had kidney biopsy and systemic anticoagulation is can be deleterious at this point. If anticoagulation is required, would recommend to start after May 01, 1 week after kidney biopsy provided that the hemoglobin is stable with no evidence of renal bleeding. Patient is can be discharged home from renal point. Creatinine may stay elevated for quite some time before getting better. Renal function may or may not recover completely however he does not need dialysis at this point. Patientkylahjose need follow-up in renal clinic with renal lab in 10-14 days if he is going to be discharged home. Documented By: Sergio Harris MD 04/27/24 1135 Signed By: <Electronically signed by MD Sergio Harris> 04/27/24 1148 [facility] Work Phone: [phone]) 386-916202-27-2025 [facility] Main [place] [address] [place] [address] Ultrasound Report Signed with Addenda Patient: Ness Beaver MR#: [id number] 1230 : 1980 Acct:[id number] Age/Sex: 44 / M ADM Date: 5 Loc: Room: [address] [place] [address] Type: ADM IN Attending Dr: Rosalinda Jones MD Ordering Provider: Chinedu Escalante MD Date of Service: 04/25/24 US/US map hemodial access JENNIE: HD access Copies to: MD Rosalinda Lundy MD~ ADDENDUM 1 The DVT is located in the right brachial vein. Impression dictated by: Chinedu Escalante MD04/27/2024 12:35 PM Dictation Location: [place] [address] Addendum Dictated By: Chinedu Escalante MD Addendum Signed By: 04/27/241234 Addendum Cosigned By: DD/ TD/TT: 04/27/24 Bilateral upper extremity vein mapping INDICATIONS: Possible need for long-term dialysis access. FINDINGS: Right upper extremity: The basilic vein was of adequate diameter in both the millie forearm in the right upper extremity. The cephalic vein was not of adequatediameter for fistula creation. The rightsubclavian and axillary veins are patent. Left upper extremity: The cephalic vein in the left arm is of adequate diameter for fistula creation. Thrombus identified in the distal brachial vein. US/US map hemodial access JENNIE IMPRESSION: Positive study for left brachial vein DVT. Impression dictated by: Chinedu Escalante MD04/26/2024 11:59 AM Dictation Location: [place] [address] Tech: Mulu Juanpablo Transcribed By: HALINA 04/26/24 1159 Dictated By: Chinedu Escalante MD 04/26/24 1157 Signed By: 04/26/24 1159 [facility] Work Phone: [phone]) 490-403202-27-2025 [place] [id number] Nephrology Progress Note Signed Patient: Ness Beaver MR#: [id number] 1230 : 1980 Acct:[id number] Age/Sex: 44 / M Adm Date: 5 Loc: Room: [address] [place] [address] Type: ADM IN Attending Dr: Rosalinda Jones MD Copies to: ~ Date of Service: 04/27/2024 Subjective Subjective Narrative: This is a 44-year male with a medical history of hepatitis B and C, polysubstance abuse was presented to the [facility] for nausea and vomiting. On evaluation emergency room patient was found to have a acute kidneyinjury with elevated serum creatinine 20 mg/dL and BUN 176 mg/dL. He was also found to have a hyperkalemia with serum potassium 6.7 mmol/L and metabolic acidosis serum bicarbonate 14 mmol/L. Patient was found to have anemia with a hemoglobin 12.2 g/dL. His CK was 742. Patient has a history of polysubstance abuse and reported to use of meth and cocaine in the past. He is also follows with the methadone clinic. Patient was treated for hyperkalemia with calcium gluconate, insulin plus D50 and Lokelma. Patient was started on a bicarbonate drip. He was given sodium [id number] mEq IV x 1 dose and was transferred to [facility] [place]. Interim history Patient is up in the bed. He feels comfortable. He had the flu symptoms that is getting better withno more fever. He was tested positive for influenza A. Patient's continue to have good urine output with gradual improvement of serum creatinine. Last hemodialysis was on April 22. Hemodialysis catheter was removed Kidney biopsy was reviewed and showed evidence of severe acute tubular necrosis with myoglobin casts suggestive of rhabdomyolysis as expected Exam Physical Exam Vital Signs: Temp Pulse Resp BP Pulse Ox O2 Del Method O2 Flow Rate 36.6 C 85 20 153/88 H 95 Room Air 2 04/27/24 09:06 04/27/24 09:06 04/27/24 09:06 04/27/24 09:06 04/27/24 09:06 04/27/24 09:06 04/22/24 13:07 Narrative: Constitutional: Appears comfortable and not in distress HEENT: No pallor or Jaundice Cardiovascular: RRR, normal S1-S2, no gallop or rub, No JVD Respiratory: Good bilateral air entry no wheezing or crackles Gastrointestinal: Soft, non tender, positive bowel sounds Extremities: No edema Skin: No rashes or bruises Musculoskeletal: No joints swellings or inflammation Neurology: Awake, alert, oriented ?3, No focal motor or sensory deficits Psych: Normal mood and affect Vascular access: Right IJ temporary hemodialysis catheter. It has poor blood flow during last 2 dialysis treatments Objective Intake and Output I&O: Intake & Output 04/24/24 04/25/24 04/26/24 04/27/24 23:59 23:59 23:59 23:59 Intake Total 700 / 700 880 / 880 900 / 900 500 / 500 Output Total 1100 / 1100 1905 / 1905 2250 / 2250 3000 / 3000 Balance -400 / -400 -1025 / -1025 -1350 / -1350 -2500 / -2500 Weight 72.8 kg 75.8 kg 79.9 kg 78.8 kg Meds and Allergies Meds: Active Medications Acetaminophen (Acetaminophen 325 Mg Tablet) 650 mg PO Q4H PRN PRN Reason: Pain Scale 1 - 3 or fever Stop: 04/20/25 17:06 Last Admin: 04/26/24 21:30 Dose: 650 mg Bisacodyl (Bisacodyl 5 Mg Tablet.Dr) 10 mg PO DAILY PRN PRN Reason: Constipation Stop: 04/20/25 17:06 Last Admin: 04/27/24 09:10 Dose: 10 mg Heparin Sodium (Porcine) (Heparin 10,000 Unit/10 Ml Vial) 2,200 unit IV-PUSH PRN PRN PRN Reason: Dialysis Stop: 04/20/25 15:57 Last Admin: 04/22/24 10:30 Dose: 2,200 unit Heparin Sodium (Porcine) (Heparin 5,000 Unit/Ml Vial) 5,000 unit SUBCUT Q12HR SAGAR Stop: 04/20/25 20:59 Last Admin: 04/27/24 09:21 Dose: 5,000 unit Heparin Sodium (Porcine) (Heparin 10,000 Unit/10 Ml Vial) 3,000 unit IV PRN PRN PRN Reason: Dialysis Stop: 04/20/25 19:25 Last Admin: 04/22/24 10:30 Dose: 3,000 unit Heparin Sodium (Porcine) (Heparin 10,000 Unit/10 Ml Vial) 1,500 unit IV PRN PRN PRN Reason: Dialysis Stop: 04/20/25 19:25 Last Admin: 04/22/24 10:31 Dose: 1,500 unit Sodium Chloride (0.9% Sodium Chloride 1,000 Ml) 1,000 mls @ 0 mls/hr MISCELLANE.Q0M PRN PRN Reason: Dialysis Stop: 04/20/25 16:59 Last Infusion: 04/22/24 10:32 Dose: Infused Lactulose (Lactulose 20 Gm/30 Ml Udc) 30 gm PO Q6H PRN PRN Reason: Constipation Stop: 04/25/25 12:03 Methadone HCl (Methadone 10 Mg/Ml Oral Concentrate) 220 mg PO DAILY [facility] Last Admin: 04/27/24 09:21 Dose: 220 mg Metoprolol Tartrate (Metoprolol Tartrate 5 Mg/5 Ml Vial) 5 mg IV-PUSH Q4H PRN PRN Reason: Blood Pressure Stop: 04/20/25 17:14 Last Admin: 04/24/24 17:12 Dose: 5 mg Nicotine (Nicotine Patch 14 Mg/24hr 1 Each Patch.Td24) 1 each TRANSDERML DAILY [facility] Stop: 05/03/24 09:01 Last Admin: 04/27/24 09:11 Dose: 1 each Nicotine Polacrilex (Nicotine Polacrilex 2 Mg Gum) 2 mg BUCCAL Q2HR PRN PRN Reason: Nicotine Cravings Stop: 04/20/25 17:06 Oseltamivir Phosphate (Oseltamivir Phosphate 30 Mg Capsule) 30 mg PO Q48H SAGAR Stop: 04/29/24 21:01 Pantoprazole Sodium (Pantoprazole 40 Mg Vial) 40 mg IV-PUSH DAILY [facility] Stop: 04/25/25 13:49 Last Admin: 04/27/24 09:21 Dose: 40 mg Polyethylene Glycol (Polyethylene Glycol 3350 17 Gm Powd.Pack) 17 gm PO BID [facility] Stop: 04/20/25 20:59 Last Admin: 04/27/24 09:17 Dose: 17 gm Prochlorperazine Edisylate (Prochlorperazine Edisylate 10 Mg/2 Ml Vial) 5 mg IV- PUSH Q4H PRN PRN Reason: Nausea OR Vomiting Stop: 04/20/25 17:14 Last Admin: 04/25/24 14:27 Dose: 5 mg Sennosides (Sennosides 8.6 Mg Tablet) 17.2 mg PO BID [facility] Stop: 04/25/25 12:29 Last Admin: 04/27/24 09:11 Dose: 17.2 mg Sevelamer Carbonate (Sevelamer Carbonate 800 Mg Tablet) 1,600 mg PO TID.WITH.MEALS [facility] Stop: 04/24/25 16:59 Last Admin: 04/27/24 09:10 Dose: 1,600 mg Sodium Chloride (Sodium Chloride 0.9 % 10 Ml Syringe) 0 ml IV-PUSH PRN PRN PRN Reason: Flush Stop: 04/20/25 16:59 Last Admin: 04/22/24 10:29 Dose: 40 ml Sodium Chloride (Sodium Chloride 0.9 % 10 Ml Syringe) 0 ml IV-PUSH PRN PRN PRN Reason: Flush Stop: 04/20/25 17:06 Last Admin: 04/20/24 19:29 Dose: 60 ml Sodium Chloride (Sodium Chloride 0.9 % 10 Ml Vial.Pf) 10 ml INJECTION PRN PRN PRN Reason: Dilution Stop: 04/25/25 13:47 Last Admin: 04/25/24 14:27 Dose: 10 ml Sodium Chloride (Sodium Chloride 0.9 % 10 Ml Syringe) 10 ml IV-PUSH PRN PRN PRN Reason: Flush Stop: 04/25/25 13:47 Allergies No Known Allergies Allergy (Verified 11/29/23 08:52) Results - Nephrology Labs 04/26/24 04:13 04/27/24 05:19 Labs: 04/27/24 05:19 BUN 67 H Creatinine 10.53 H D Phosphorus 8.9 H Albumin 4.1 Radiology Impressions Impressions - last 24 hours: Impressions Vessel Mapping-Hemodialysis Access 04/25/24 09:40 IMPRESSION: Positive study for left brachial vein DVT. Impression dictated by: Chinedu Escalante MD04/26/2024 11:59 AM Dictation Location: [place] [address] Any impression(s) listed above is documentation that was entered by the reading physician into a diagnostic report(s) for Ness Clement Sar[place]. I have reviewedthe report(s) and am incorporating any findings in the treatment plan of this patient where applicable. A&P - Nephrology Assessment/Plan (1) JASMINA (acute kidney injury): Assessment/Problem Details: Patient is a JASMINA due to unclear etiology. Differential diagnoses are RPGN or ATN. Patient has no evidence of obstructive uropathy on CAT scan. Patient has history hepatitis B and C. He had polysubstance abuse as well. workup for RPGN including ANCA, serum cryoglobulin, anti-GBM, lupus, C3, C4 and paraproteinemia allcame back unremarkable. Kidney biopsy showed evidence of ATN and myoglobin casts suggestive of rhabdomyolysis as expected. (2) Hyperkalemia: Assessment/Problem Details: He had hyperkalemia due to the JASMINA and metabolic acidosis. His hyperkalemia wascorrected with dialysis. (3) Metabolic acidosis: Assessment/Problem Details: He had metabolic acidosis likely due to the JASMINA. His metabolic acidosis corrected with dialysis. (4) Hepatitis C: Assessment/Problem Details: Patient has a known history of hepatitis C. (5) Anemia: Assessment/Problem Details: He has a anemia due to the unclear etiology. He has a normal haptoglobin with mildly elevated LDH and no evidence of schistocytes on peripheral smear so possibility of hemolytic anemia is low. He hasnormal iron stores B12 and folate level. Plan * Urine output has increased serum creatinine started to decrease 10.53 mg/dL. Patient has no acidosis or hyperkalemia. Last hemodialysis was on April 22. No need for more dialysis at this point. Renal function expected to continue to improve. * Patient is still on sevelamer to 1600 mg 3 times daily for hyperphosphatemia. Phosphorus is expected to improve with improvement of renal function. Sevelamer can be stopped at the time of discharge Patient has incidental finding of right brachial vein thrombus which possibly related to IV access or drug abuse. It is not clear if the thrombus is acute orchronic. Patient just had kidney biopsy and systemic anticoagulation is can be deleterious at this point. If anticoagulation is required, would recommend to start after May 01, 1 week after kidney biopsy provided that the hemoglobin is stable with no evidence of renal bleeding. Patient is can be discharged home from renal point. Creatinine may stay elevated for quite some time before getting better. Renal function may or may not recover completely however he does not need dialysis at this point. Patientwill need follow-up in renal clinic with renal lab in 10-14 days if heis going to be discharged home. Documented By: Sergio Harris MD 04/27/24 1135 Signed By: 04/27/24 1148 [facility]02-26-2025 Progress note Author Rosalinda Jones [facility] Note Date/Time April 26, 2024 2:49pm [facility] [address] [place] [address] Hospitalist Progress Note Signed Patient: Ness Beaver MR#: [id number] 1230 : 1980 Acct:[id number] Age/Sex: 44 / M Adm Date: 5 Loc: Room: [address] [place] [address] Type: ADM IN Attending Dr: Rosalinda Jones MD Copies to: ~ Date of Service: 04/26/2024 Subjective Subjective Narrative: Patient assessed laying comfortably in bed, kidney biopsy completed yesterday. Reports some pain in RUE, otherwise feels better compared to yesterday. Denies any nausea, vomiting, abdominal pain. He states that he has not had a bowel movement yet but is passing gas. GENERAL: Alert, oriented, comfortable HEENT: NC/AT, EOMI, PERRL, conjunctiva clear. Bandage on R neck. CARDIOVASCULAR: Regular rate and regular rhythm, no murmurs/rubs/gallops RESPIRATORY: B/l coarse lung sounds ABDOMEN: Soft, non-tender, non-distended, normal bowel sounds EXTREMITIES: No edema NEURO: Cranial nerves grossly intact, no focal neurologic signs Exam Physical Exam Vital Signs: Temp Pulse Resp BP Pulse Ox O2 Del Method O2 Flow Rate 98.5 F 72 20 142/80 H 98 Room Air 2 04/26/24 08:00 04/26/24 11:54 04/26/24 11:54 04/26/24 11:54 04/26/24 11:54 04/26/24 11:54 04/22/24 13:07 Objective Lab Results 04/26/24 04:13 04/26/24 04:13 Microbiology Results Microbiology 04/25/24 19:40 Urine - Clean-Voided Midstream Urine Culture - Preliminary <9,000 colonies/ml mixed bacterial skin contaminants 1 Day 04/25/24 16:10 Nasopharyngeal Respiratory Panel (PCR) - Final Meds Allergies and Active Meds Allergies No Known Allergies Allergy (Verified 11/29/23 08:52) Active Meds: Active Medications Generic Name Dose Route Start Last Admin Trade Name Freq PRN Reason Stop Dose Admin Acetaminophen 650 mg 04/20/24 17:07 04/25/24 22:40 Acetaminophen 325 Mg Tablet PO 04/20/25 17:06 650 mg Q4H PRN Administration Pain Scale 1 - 3 or fever Bisacodyl 10 mg 04/20/24 17:07 04/25/24 12:14 Bisacodyl 5 Mg Tablet.Dr PO 04/20/25 17:06 10 mg DAILY PRN Administration Constipation Heparin Sodium (Porcine) 2,200 unit 04/20/24 15:58 04/22/24 10:30 Heparin 10,000 Unit/10 Ml Vial IV-PUSH 04/20/25 15:57 2,200 unit PRN PRN Administration Dialysis Heparin Sodium (Porcine) 5,000 unit 04/20/24 21:00 04/26/24 09:06 Heparin 5,000 Unit/Ml Vial SUBCUT 04/20/25 20:59 5,000 unit Q12HR SAGAR Administration Heparin Sodium (Porcine) 3,000 unit 04/22/24 08:23 04/22/24 10:30 Heparin 10,000 Unit/10 Ml Vial IV 04/20/25 19:25 3,000 unit PRN PRN Administration Dialysis Heparin Sodium (Porcine) 1,500 unit 04/22/24 08:23 04/22/24 10:31 Heparin 10,000 Unit/10 Ml Vial IV 04/20/25 19:25 1,500 unit PRN PRN Administration Dialysis Sodium Chloride 1,000 mls @ 0 mls/hr 04/20/24 17:00 04/22/24 10:32 0.9% Sodium Chloride 1,000 Ml MISCELLANE 04/20/25 16:59 Infused .Q0M PRN Infusion Dialysis As Directed Lactulose 30 gm 04/25/24 12:04 Lactulose 20 Gm/30 Ml Udc PO 04/25/25 12:03 Q6H PRN Constipation Methadone HCl 220 mg 04/20/24 20:45 04/26/24 09:03 Methadone 10 Mg/Ml Oral Concentrate PO 220 mg DAILY SAGAR Administration Metoprolol Tartrate 5 mg 04/20/24 17:15 04/24/24 17:12 Metoprolol Tartrate 5 Mg/5 Ml Vial IV-PUSH 04/20/25 17:14 5 mg Q4H PRN Administration Blood Pressure Nicotine 1 each 04/20/24 17:10 04/26/24 09:02 Nicotine Patch 14 Mg/24hr 1 Each Patch.Td24 TRANSDERML 05/03/24 09:01 1 each DAILY SAGAR Administration Nicotine Polacrilex 2 mg 04/20/24 17:07 Nicotine Polacrilex 2 Mg Gum BUCCAL 04/20/25 17:06 Q2HR PRN Nicotine Cravings Oseltamivir Phosphate 30 mg 04/27/24 21:00 Oseltamivir Phosphate 30 Mg Capsule PO 04/29/24 21:01 Q48H SAGAR Pantoprazole Sodium 40 mg 04/25/24 13:50 04/26/24 09:02 Pantoprazole 40 Mg Vial IV-PUSH 04/25/25 13:49 40 mg DAILY SAGAR Administration Polyethylene Glycol 17 gm 04/20/24 21:00 04/26/24 09:03 Polyethylene Glycol 3350 17 Gm Powd.Pack PO 04/20/25 20:59 Not Given BID SAGAR Prochlorperazine Edisylate 5 mg 04/20/24 17:15 04/25/24 14:27 Prochlorperazine Edisylate 10 Mg/2 Ml Vial IV-PUSH 04/20/25 17:14 5 mg Q4H PRN Administration Nausea OR Vomiting Sennosides 17.2 mg 04/25/24 12:30 04/26/24 09:02 Sennosides 8.6 Mg Tablet PO 04/25/25 12:29 17.2 mg BID SAGAR Administration Sevelamer Carbonate 1,600 mg 04/24/24 17:00 04/26/24 11:46 Sevelamer Carbonate 800 Mg Tablet PO 04/24/25 16:59 1,600 mg TID.WITH.MEALS SAGAR Administration Sodium Chloride 0 ml 04/20/24 17:00 04/22/24 10:29 Sodium Chloride 0.9 % 10 Ml Syringe IV-PUSH 04/20/25 16:59 40 ml PRN PRN Administration Flush Sodium Chloride 0 ml 04/20/24 17:07 04/20/24 19:29 Sodium Chloride 0.9 % 10 Ml Syringe IV-PUSH 04/20/25 17:06 60 ml PRN PRN Administration Flush Sodium Chloride 10 ml 04/25/24 13:48 04/25/24 14:27 Sodium Chloride 0.9 % 10 Ml Vial.Pf INJECTION 04/25/25 13:47 10 ml PRN PRN Administration Dilution Sodium Chloride 10 ml 04/25/24 13:48 Sodium Chloride 0.9 % 10 Ml Syringe IV-PUSH 04/25/25 13:47 PRN PRN Flush A&P - Hospitalist Assessment/Plan (1) JASMINA (acute kidney injury): Plan 1. Acute kidney injury of unclear etiology, biopsy done on April 25, will start DVT chemoprophylaxis Dialysis catheter removed, will continue to follow kidney function, anticipate discharge if stable/improving. Oliguria seems to be improving. At this point hemodynamically stable 2. IV drug user 3. Low-grade fevers 04/25 due to influenza A viral infection blood cultures pending so far negative, urine cultures pending, so far negative, CXR shows right basilar opacity and effusion. 4. Incidental finding of right brachial DVT on vein mapping, Venous duplex readpending. If confirmed DVT, will discuss with vascular regarding anticoagulation therapy 5. Constipation - Sennosides BID, Miralax BID, PRN bisacodyl, lactulose. CXR shows moderate retained stool. Advance diet. Documented By: Rosalinda Jones MD 04/26/24 1413 Signed By: <Electronically signed by Rosalinda Jones MD> 04/26/24 1449 <Electronically signed by DO RITA Dean> 04/26/24 1431 [facility] Work Phone: [phone]) 147-366502-26-2025 Progress note Author Sergio Harris [facility] Note Date/Time April 26, 2024 2:07pm [facility] [address] [place] [address] Nephrology Progress Note Signed Patient: Ness Beaver MR#: [id number] 1230 : 1980 Acct:[id number] Age/Sex: 44 / M Adm Date: 5 Loc: 4P Room: 0A9493-9 Type: ADM IN Attending Dr: Rosalinda Jones MD Copies to: ~ Date of Service: 04/26/2024 Subjective Subjective Narrative: This is a 44-year male with a medical history of hepatitis B and C, polysubstance abuse was presented to the [facility] for nausea and vomiting. On evaluation emergency room patient was found to have a acute kidneyinjury with elevated serum creatinine 20 mg/dL and BUN 176 mg/dL. He was also found to have a hyperkalemia with serum potassium 6.7 mmol/L and metabolic acidosis serum bicarbonate 14 mmol/L. Patient was found to have anemia with a hemoglobin 12.2 g/dL. His CK was 742. Patient has a history of polysubstance abuse and reported to use of meth and cocaine in the past. He is also follows with the methadone clinic. Patient was treated for hyperkalemia with calcium gluconate, insulin plus D50 and Lokelma. Patient was started on a bicarbonate drip. He was given sodium bicarbonate 100 mEq IV x 1 dose and was transferred to [facility] [place]. Interim history No more fever. He was tested positive for influenza AH 1?2008. Urine culture showed no growth. Blood culture still pending. Patient has a progressive increase in urine output over the last 24 hours more than 2500 mL was -1150. Urine output calculated at 1.1 mL/kg/h. Blood pressurestable 142/80. Hemodialysis catheter was removed yesterday since renal function is expected to improve spontaneously. Patient had kidney biopsy yesterday, results are still pending. Screening for glomerulonephritis including ANCA and Shelly globulin are negative. Exam Physical Exam Vital Signs: Temp Pulse Resp BP Pulse Ox O2 Del Method O2 Flow Rate 36.9 C 72 20 142/80 H 98 Room Air 2 04/26/24 08:00 04/26/24 11:54 04/26/24 11:54 04/26/24 11:54 04/26/24 11:54 04/26/24 11:54 04/22/24 13:07 Narrative: Constitutional: Appears comfortable and not in distress HEENT: No pallor or Jaundice Cardiovascular: RRR, normal S1-S2, no gallop or rub, No JVD Respiratory: Good bilateral air entry no wheezing or crackles Gastrointestinal: Soft, non tender, positive bowel sounds Extremities: No edema Skin: No rashes or bruises Musculoskeletal: No joints swellings or inflammation Neurology: Awake, alert, oriented ?3, No focal motor or sensory deficits Psych: Normal mood and affect Vascular access: Right IJ temporary hemodialysis catheter. It has poor blood flow during last 2 dialysis treatments Objective Intake and Output I&O: Intake & Output 04/23/24 04/24/24 04/25/24 04/26/24 23:59 23:59 23:59 23:59 Intake Total 950 / 950 700 / 700 880 / 880 500 / 500 Output Total 600 / 600 1100 / 1100 1905 / 1905 1550 / 1550 Balance 350 / 350 -400 / -400 -1025 / -1025 -1050 / -1050 Weight 73 kg 72.8 kg 75.8 kg 79.9 kg Meds and Allergies Meds: Active Medications Acetaminophen (Acetaminophen 325 Mg Tablet) 650 mg PO Q4H PRN PRN Reason: Pain Scale 1 - 3 or fever Stop: 04/20/25 17:06 Last Admin: 04/25/24 22:40 Dose: 650 mg Bisacodyl (Bisacodyl 5 Mg Tablet.Dr) 10 mg PO DAILY PRN PRN Reason: Constipation Stop: 04/20/25 17:06 Last Admin: 04/25/24 12:14 Dose: 10 mg Heparin Sodium (Porcine) (Heparin 10,000 Unit/10 Ml Vial) 2,200 unit IV-PUSH PRN PRN PRN Reason: Dialysis Stop: 04/20/25 15:57 Last Admin: 04/22/24 10:30 Dose: 2,200 unit Heparin Sodium (Porcine) (Heparin 5,000 Unit/Ml Vial) 5,000 unit SUBCUT Q12HR SAGAR Stop: 04/20/25 20:59 Last Admin: 04/26/24 09:06 Dose: 5,000 unit Heparin Sodium (Porcine) (Heparin 10,000 Unit/10 Ml Vial) 3,000 unit IV PRN PRN PRN Reason: Dialysis Stop: 04/20/25 19:25 Last Admin: 04/22/24 10:30 Dose: 3,000 unit Heparin Sodium (Porcine) (Heparin 10,000 Unit/10 Ml Vial) 1,500 unit IV PRN PRN PRN Reason: Dialysis Stop: 04/20/25 19:25 Last Admin: 04/22/24 10:31 Dose: 1,500 unit Sodium Chloride (0.9% Sodium Chloride 1,000 Ml) 1,000 mls @ 0 mls/hr MISCELLANE.Q0M PRN PRN Reason: Dialysis Stop: 04/20/25 16:59 Last Infusion: 04/22/24 10:32 Dose: Infused Lactulose (Lactulose 20 Gm/30 Ml Udc) 30 gm PO Q6H PRN PRN Reason: Constipation Stop: 04/25/25 12:03 Methadone HCl (Methadone 10 Mg/Ml Oral Concentrate) 220 mg PO DAILY [facility] Last Admin: 04/26/24 09:03 Dose: 220 mg Metoprolol Tartrate (Metoprolol Tartrate 5 Mg/5 Ml Vial) 5 mg IV-PUSH Q4H PRN PRN Reason: Blood Pressure Stop: 04/20/25 17:14 Last Admin: 04/24/24 17:12 Dose: 5 mg Nicotine (Nicotine Patch 14 Mg/24hr 1 Each Patch.Td24) 1 each TRANSDERML DAILY [facility] Stop: 05/03/24 09:01 Last Admin: 04/26/24 09:02 Dose: 1 each Nicotine Polacrilex (Nicotine Polacrilex 2 Mg Gum) 2 mg BUCCAL Q2HR PRN PRN Reason: Nicotine Cravings Stop: 04/20/25 17:06 Oseltamivir Phosphate (Oseltamivir Phosphate 30 Mg Capsule) 30 mg PO Q48H SAGAR Stop: 04/29/24 21:01 Pantoprazole Sodium (Pantoprazole 40 Mg Vial) 40 mg IV-PUSH DAILY [facility] Stop: 04/25/25 13:49 Last Admin: 04/26/24 09:02 Dose: 40 mg Polyethylene Glycol (Polyethylene Glycol 3350 17 Gm Powd.Pack) 17 gm PO BID [facility] Stop: 04/20/25 20:59 Last Admin: 04/26/24 09:03 Dose: Not Given Prochlorperazine Edisylate (Prochlorperazine Edisylate 10 Mg/2 Ml Vial) 5 mg IV- PUSH Q4H PRN PRN Reason: Nausea OR Vomiting Stop: 04/20/25 17:14 Last Admin: 04/25/24 14:27 Dose: 5 mg Sennosides (Sennosides 8.6 Mg Tablet) 17.2 mg PO BID SAGAR Stop: 04/25/25 12:29 Last Admin: 04/26/24 09:02 Dose: 17.2 mg Sevelamer Carbonate (Sevelamer Carbonate 800 Mg Tablet) 1,600 mg PO TID.WITH.MEALS SAGAR Stop: 04/24/25 16:59 Last Admin: 04/26/24 11:46 Dose: 1,600 mg Sodium Chloride (Sodium Chloride 0.9 % 10 Ml Syringe) 0 ml IV-PUSH PRN PRN PRN Reason: Flush Stop: 04/20/25 16:59 Last Admin: 04/22/24 10:29 Dose: 40 ml Sodium Chloride (Sodium Chloride 0.9 % 10 Ml Syringe) 0 ml IV-PUSH PRN PRN PRN Reason: Flush Stop: 04/20/25 17:06 Last Admin: 04/20/24 19:29 Dose: 60 ml Sodium Chloride (Sodium Chloride 0.9 % 10 Ml Vial.Pf) 10 ml INJECTION PRN PRN PRN Reason: Dilution Stop: 04/25/25 13:47 Last Admin: 04/25/24 14:27 Dose: 10 ml Sodium Chloride (Sodium Chloride 0.9 % 10 Ml Syringe) 10 ml IV-PUSH PRN PRN PRN Reason: Flush Stop: 04/25/25 13:47 Allergies No Known Allergies Allergy (Verified 11/29/23 08:52) Results - Nephrology Labs 04/26/24 04:13 04/26/24 04:13 Labs: 04/25/24 04/26/24 19:40 04:13 BUN 62 H Creatinine 11.54 H D Phosphorus 8.3 H Albumin 3.8 Urine Color Colorless Urine Appearance Clear Urine pH 6.0 Ur Specific [place] 1.009 Urine Protein Negative Urine Glucose (UA) Normal Urine Ketones Negative Urine Occult Blood 2+ H Urine Nitrite Negative Ur Leukocyte Esterase 3+ H Urine RBC 10-19 H Urine WBC 20-49 H Urine Bacteria None seen Radiology Impressions Impressions - last 24 hours: Impressions Vessel Mapping-Hemodialysis Access 04/25/24 09:40 IMPRESSION: Positive study for left brachial vein DVT. Impression dictated by: Chinedu Escalante MD04/26/2024 11:59 AM Dictation Location: [id number] 04/25/24 11:00 IMPRESSION: Successful CT-guided kidney biopsy. Impression dictated by: Luis Eduardo Villasenor Jr., D.O.04/25/2024 2:28 PM Dictation Location: [place] [address] Chest X-Ray 04/25/24 16:58 IMPRESSION: Right basilar opacity and effusion. Moderate retained stool. No bowel obstruction. No free air. Impression dictated by: Andrea Zayas M.D.04/25/2024 7:27 PM Dictation Location: [place] [address] Any impression(s) listed above is documentation that was entered by the reading physician into a diagnostic report(s) for Ness Beaver. I have reviewedthe report(s) and am incorporating any findings in the treatment plan of this patient where applicable. A&P - Nephrology Assessment/Plan (1) JASMINA (acute kidney injury): Assessment/Problem Details: Patient is a JASMINA due to unclear etiology. Differential diagnoses are RPGN or ATN. Patient has no evidence of obstructive uropathy on CAT scan. Patient has history hepatitis B and C. He had polysubstance abuse as well. workup for RPGN including ANCA, serum cryoglobulin, anti-GBM, lupus, C3, C4 and paraproteinemia all came back unremarkable. (2) Hyperkalemia: Assessment/Problem Details: He had hyperkalemia due to the JASMINA and metabolic acidosis. His hyperkalemia wascorrected with dialysis. (3) Metabolic acidosis: Assessment/Problem Details: He had metabolic acidosis likely due to the JASMINA. His metabolic acidosis corrected with dialysis. (4) Hepatitis C: Assessment/Problem Details: Patient has a known history of hepatitis C. (5) Anemia: Assessment/Problem Details: He has a anemia due to the unclear etiology. He has a normal haptoglobin with mildly elevated LDH and no evidence of schistocytes on peripheral smear so possibility of hemolytic anemia is low. He has normal iron stores B12 and folate level. Plan * Urine output has increased and renal function expected to improve although creatinine still 11 mg/dL. Patient has no acidosis or hyperkalemia. No indication for dialysis at this point. Will continue monitor renal function in the next 24 to 48 hours. Patient is can be discharged home by tomorrow if renal function stabilizes or start to improve. * Patient is also had kidney biopsy done. Will review the pathology and to address any further treatment if needed. I am expecting that patient could have rhabdomyolysis versus ATN prior to admission. Baseline creatinine as stated above was 0.8 mg/dL on October 2023. Serology study for glomerulonephritis were unremarkable. * Continue sevelamer to 1600 mg 3 times daily for hyperphosphatemia. Phosphorus is expected to improve with improvement of renal function. Patient has incidental finding of right brachial vein thrombus which possibly related to IV access. Patient just had kidney biopsy and systemic anticoagulation is can be deleterious at this point. Right brachial vein thrombus has minimal risk and the patient has no significant swelling of the right arm. Will discontinue temporary right IJ hemodialysis catheter and monitor for the next 48-72 hours with no dialysis. Patient had a fever seems itzel related to influenza. All cultures are negative at this point. Patient is can be discharged home from renal point if serum creatinine tomorrow is the same or improving with no acidosis or hyperkalemia. Creatinine may stay elevated for quite some time before getting better. Renal function may or may not recover completely however he does not need dialysis at this point. Patientwill need follow-up in renal clinic with repeat lab in 3 to 5 days if he is going to be discharged home. Plan of care was discussed with Dr. Jones. Documented By: Sergio Harris MD 04/26/241401 Signed By: <Electronically signed by MD Sergio Harris> 04/26/24 5220 [facility] Work Phone: [phone]) [phone] [place] [id number] Hospital[place] Progress Note Signed Patient: Ness Beaver MR#: [id number] 1230 : 1980 Acct:[id number] Age/Sex: 44 / M Adm Date: 5 Loc: 4 Room: [id number] Type: ADM IN Attending Dr: Rosalinda Jones MD Copies to: ~ Date of Service: 04/26/2024 Subjective Subjective Narrative: Patient assessed laying comfortably in bed, kidney biopsy completed yesterday. Reports some pain inRUE, otherwise feels better compared to yesterday. Denies any nausea, vomiting, abdominal pain. He states that he has not had a bowel movement yet but is passing gas. GENERAL: Alert, oriented, comfortable HEENT: NC/AT, EOMI, PERRL, conjunctiva clear. Bandage on R neck. CARDIOVASCULAR: Regular rate and regular rhythm, no murmurs/rubs/gallops RESPIRATORY: B/l coarse lung sounds ABDOMEN: Soft, non-tender, non-distended, normal bowel sounds EXTREMITIES: No edema NEURO: Cranial nerves grossly intact, no focal neurologic signs Exam Physical Exam Vital Signs: Temp Pulse Resp BP Pulse Ox O2 Del Method O2 Flow Rate 98.5 F 72 20 142/80 H 98 Room Air 2 04/26/24 08:00 04/26/24 11:54 04/26/24 11:54 04/26/24 11:54 04/26/24 11:54 04/26/24 11:54 04/22/24 13:07 Objective Lab Results 04/26/24 04:13 04/26/24 04:13 Microbiology Results Microbiology 04/25/24 19:40 Urine - Clean-Voided Midstream Urine Culture - Preliminary <9,000 colonies/ml mixed bacterial skin contaminants 1 Day 04/25/24 16:10 Nasopharyngeal Respiratory Panel (PCR) - Final Meds Allergies and Active Meds Allergies No Known Allergies Allergy (Verified 11/29/23 08:52) Active Meds: Active Medications Generic Name Dose Route Start Last Admin Trade Name Freq PRN Reason Stop Dose Admin Acetaminophen 650 mg 04/20/24 17:07 04/25/24 22:40 Acetaminophen 325 Mg Tablet PO 04/20/25 17:06 650 mg Q4H PRN Administration Pain Scale 1 - 3 or fever Bisacodyl 10 mg 04/20/24 17:07 04/25/24 12:14 Bisacodyl 5 Mg Tablet. PO 04/20/25 17:06 10 mg DAILY PRN Administration Constipation Heparin Sodium (Porcine) 2,200 unit 04/20/24 15:58 04/22/24 10:30 Heparin 10,000 Unit/10 Ml Vial IV-PUSH 04/20/25 15:57 2,200 unit PRN PRN Administration Dialysis Heparin Sodium (Porcine) 5,000 unit 04/20/24 21:00 04/26/24 09:06 Heparin 5,000 Unit/Ml Vial SUBCUT 04/20/25 20:59 5,000 unit Q12HR SAGAR Administration Heparin Sodium (Porcine) 3,000 unit 04/22/24 08:23 04/22/24 10:30 Heparin 10,000 Unit/10 Ml Vial IV 04/20/25 19:25 3,000 unit PRN PRN Administration Dialysis Heparin Sodium (Porcine) 1,500 unit 04/22/24 08:23 04/22/24 10:31 Heparin 10,000 Unit/10 Ml Vial IV 04/20/25 19:25 1,500 unit PRN PRN Administration Dialysis Sodium Chloride 1,000 mls @ 0 mls/hr 04/20/24 17:00 04/22/24 10:32 0.9% Sodium Chloride 1,000 Ml MISCELLANE 04/20/25 16:59 Infused .Q0M PRN Infusion Dialysis As Directed Lactulose 30 gm 04/25/24 12:04 Lactulose 20 Gm/30 Ml Udc PO 04/25/25 12:03 Q6H PRN Constipation Methadone HCl 220 mg 04/20/24 20:45 04/26/24 09:03 Methadone 10 Mg/Ml Oral Concentrate PO 220 mg DAILY SAGAR Administration Metoprolol Tartrate 5 mg 04/20/24 17:15 04/24/24 17:12 Metoprolol Tartrate 5 Mg/5 Ml Vial IV-PUSH 04/20/25 17:14 5 mg Q4H PRN Administration Blood Pressure Nicotine 1 each 04/20/24 17:10 04/26/24 09:02 Nicotine Patch 14 Mg/24hr 1 Each Patch.Td24 TRANSDERML 05/03/24 09:01 1 each DAILY SAGAR Administration Nicotine Polacrilex 2 mg 04/20/24 17:07 Nicotine Polacrilex 2 Mg Gum BUCCAL 04/20/25 17:06 Q2HR PRN Nicotine Cravings Oseltamivir Phosphate 30 mg 04/27/24 21:00 Oseltamivir Phosphate 30 Mg Capsule PO 04/29/24 21:01 Q48H SAGAR Pantoprazole Sodium 40 mg 04/25/24 13:50 04/26/24 09:02 Pantoprazole 40 Mg Vial IV-PUSH 04/25/25 13:49 40 mg DAILY SAGAR Administration Polyethylene Glycol 17 gm 04/20/24 21:00 04/26/24 09:03 Polyethylene Glycol 3350 17 Gm Powd.Pack PO 04/20/25 20:59 Not Given BID SAGAR Prochlorperazine Edisylate 5 mg 04/20/24 17:15 04/25/24 14:27 Prochlorperazine Edisylate 10 Mg/2 Ml Vial IV-PUSH 04/20/25 17:14 5 mg Q4H PRN Administration Nausea OR Vomiting Sennosides 17.2 mg 04/25/24 12:30 04/26/24 09:02 Sennosides 8.6 Mg Tablet PO 04/25/25 12:29 17.2 mg BID SAGAR Administration Sevelamer Carbonate 1,600 mg 04/24/24 17:00 04/26/24 11:46 Sevelamer Carbonate 800 Mg Tablet PO 04/24/25 16:59 1,600 mg TID.WITH.MEALS SAGAR Administration Sodium Chloride 0 ml 04/20/24 17:00 04/22/24 10:29 Sodium Chloride 0.9 % 10 Ml Syringe IV-PUSH 04/20/25 16:59 40 ml PRN PRN Administration Flush Sodium Chloride 0 ml 04/20/24 17:07 04/20/24 19:29 Sodium Chloride 0.9 % 10 Ml Syringe IV-PUSH 04/20/25 17:06 60 ml PRN PRN Administration Flush Sodium Chloride 10 ml 04/25/24 13:48 04/25/24 14:27 Sodium Chloride 0.9 % 10 Ml Vial.Pf INJECTION 04/25/25 13:47 10 ml PRN PRN Administration Dilution Sodium Chloride 10 ml 04/25/24 13:48 Sodium Chloride 0.9 % 10 Ml Syringe IV-PUSH 04/25/25 13:47 PRN PRN Flush A&P - Hospitalist Assessment/Plan (1) JASMINA (acute kidney injury): Plan 1. Acute kidney injury of unclear etiology, biopsy done on April 25, will start DVT chemoprophylaxis Dialysis catheter removed, will continue to follow kidney function, anticipate discharge if stable/improving. Oliguria seems to be improving. At this point hemodynamically stable 2. IV drug user 3. Low-grade fevers 04/25 due to influenza A viral infection blood cultures pending so far negative, urine cultures pending, so far negative, CXR shows right basilar opacity and effusion. 4. Incidental finding of right brachial DVT on vein mapping, Venous duplex readpending. If confirmed DVT, will discuss with vascular regarding anticoagulation therapy 5. Constipation - Sennosides BID, Miralax BID, PRN bisacodyl, lactulose. CXR shows moderate retained stool. Advance diet. Documented By: Rosalinda Jones MD 04/26/24 1413 Signed By: 04/26/24 1449 04/26/24 1431 [facility]02-26-2025 [place] [id number] Nephrology Progress Note Signed Patient: Ness Beaver MR#: [id number] 1230 : 1980 Acct:[id number] Age/Sex: 44 / M Adm Date: 5 Loc: Room: [address] [place] [address] Type: ADM IN Attending Dr: Rosalinda Jones MD Copies to: ~ Date of Service: 04/26/2024 Subjective Subjective Narrative: This is a 44-year male with a medical history of hepatitis B and C, polysubstance abuse was presented to the [facility] for nausea and vomiting. On evaluation emergency room patient was found to have a acute kidneyinjury with elevated serum creatinine 20 mg/dL and BUN 176 mg/dL. He was also found to have a hyperkalemia with serum potassium 6.7 mmol/L and metabolic acidosis serum bicarbonate 14 mmol/L. Patient was found to have anemia with a hemoglobin 12.2 g/dL. His CK was 742. Patient has a history of polysubstance abuse and reported to use of meth and cocaine in the past. He is also follows with the methadone clinic. Patient was treated for hyperkalemia with calcium gluconate, insulin plus D50 and Lokelma. Patient was started on a bicarbonate drip. He was given sodium [id number] mEq IV x 1 dose and was transferred to [facility] [place]. Interim history No more fever. He was tested positive for influenza AH 1?2008. Urine culture showed no growth. Blood culture still pending. Patient has a progressive increase in urine output over the last 24 hours more than 2500 mL was -1150. Urine output calculated at 1.1 mL/kg/h. Blood pressurestable 142/80. Hemodialysis catheter was removed yesterday since renal function is expected to improve spontaneously. Patient had kidney biopsy yesterday, results are still pending. Screening for glomerulonephritis including ANCA and Shelly globulin are negative. Exam Physical Exam Vital Signs: Temp Pulse Resp BP Pulse Ox O2 Del Method O2 Flow Rate 36.9 C 72 20 142/80 H 98 Room Air 2 04/26/24 08:00 04/26/24 11:54 04/26/24 11:54 04/26/24 11:54 04/26/24 11:54 04/26/24 11:54 04/22/24 13:07 Narrative: Constitutional: Appears comfortable and not in distress HEENT: No pallor or Jaundice Cardiovascular: RRR, normal S1-S2, no gallop or rub, No JVD Respiratory: Good bilateral air entry no wheezing or crackles Gastrointestinal: Soft, non tender, positive bowel sounds Extremities: No edema Skin: No rashes or bruises Musculoskeletal: No joints swellings or inflammation Neurology: Awake, alert, oriented ?3, No focal motor or sensory deficits Psych: Normal mood and affect Vascular access: Right IJ temporary hemodialysis catheter. It has poor blood flow during last 2 dialysis treatments Objective Intake and Output I&O: Intake & Output 04/23/24 04/24/24 04/25/24 04/26/24 23:59 23:59 23:59 23:59 Intake Total 950 / 950 700 / 700 880 / 880 500 / 500 Output Total 600 / 600 1100 / 1100 1905 / 1905 1550 / 1550 Balance 350 / 350 -400 / -400 -1025 / -1025 -1050 / -1050 Weight 73 kg 72.8 kg 75.8 kg 79.9 kg Meds and Allergies Meds: Active Medications Acetaminophen (Acetaminophen 325 Mg Tablet) 650 mg PO Q4H PRN PRN Reason: Pain Scale 1 - 3 or fever Stop: 04/20/25 17:06 Last Admin: 04/25/24 22:40 Dose: 650 mg Bisacodyl (Bisacodyl 5 Mg Tablet.Dr) 10 mg PO DAILY PRN PRN Reason: Constipation Stop: 04/20/25 17:06 Last Admin: 04/25/24 12:14 Dose: 10 mg Heparin Sodium (Porcine) (Heparin 10,000 Unit/10 Ml Vial) 2,200 unit IV-PUSH PRN PRN PRN Reason: Dialysis Stop: 04/20/25 15:57 Last Admin: 04/22/24 10:30 Dose: 2,200 unit Heparin Sodium (Porcine) (Heparin 5,000 Unit/Ml Vial) 5,000 unit SUBCUT Q12HR SAGAR Stop: 04/20/25 20:59 Last Admin: 04/26/24 09:06 Dose: 5,000 unit Heparin Sodium (Porcine) (Heparin 10,000 Unit/10 Ml Vial) 3,000 unit IV PRN PRN PRN Reason: Dialysis Stop: 04/20/25 19:25 Last Admin: 04/22/24 10:30 Dose: 3,000 unit Heparin Sodium (Porcine) (Heparin 10,000 Unit/10 Ml Vial) 1,500 unit IV PRN PRN PRN Reason: Dialysis Stop: 04/20/25 19:25 Last Admin: 04/22/24 10:31 Dose: 1,500 unit Sodium Chloride (0.9% Sodium Chloride 1,000 Ml) 1,000 mls @ 0 mls/hr MISCELLANE.Q0M PRN PRN Reason: Dialysis Stop: 04/20/25 16:59 Last Infusion: 04/22/24 10:32 Dose: Infused Lactulose (Lactulose 20 Gm/30 Ml Udc) 30 gm PO Q6H PRN PRN Reason: Constipation Stop: 04/25/25 12:03 Methadone HCl (Methadone 10 Mg/Ml Oral Concentrate) 220 mg PO DAILY [facility] Last Admin: 04/26/24 09:03 Dose: 220 mg Metoprolol Tartrate (Metoprolol Tartrate 5 Mg/5 Ml Vial) 5 mg IV-PUSH Q4H PRN PRN Reason: Blood Pressure Stop: 04/20/25 17:14 Last Admin: 04/24/24 17:12 Dose: 5 mg Nicotine (Nicotine Patch 14 Mg/24hr 1 Each Patch.Td24) 1 each TRANSDERML DAILY [facility] Stop: 05/03/24 09:01 Last Admin: 04/26/24 09:02 Dose: 1 each Nicotine Polacrilex (Nicotine Polacrilex 2 Mg Gum) 2 mg BUCCAL Q2HR PRN PRN Reason: Nicotine Cravings Stop: 04/20/25 17:06 Oseltamivir Phosphate (Oseltamivir Phosphate 30 Mg Capsule) 30 mg PO Q48H [facility] Stop: 04/29/24 21:01 Pantoprazole Sodium (Pantoprazole 40 Mg Vial) 40 mg IV-PUSH DAILY [facility] Stop: 04/25/25 13:49 Last Admin: 04/26/24 09:02 Dose: 40 mg Polyethylene Glycol (Polyethylene Glycol 3350 17 Gm Powd.Pack) 17 gm PO BID [facility] Stop: 04/20/25 20:59 Last Admin: 04/26/24 09:03 Dose: Not Given Prochlorperazine Edisylate (Prochlorperazine Edisylate 10 Mg/2 Ml Vial) 5 mg IV- PUSH Q4H PRN PRN Reason: Nausea OR Vomiting Stop: 04/20/25 17:14 Last Admin: 04/25/24 14:27 Dose: 5 mg Sennosides (Sennosides 8.6 Mg Tablet) 17.2 mg PO BID [facility] Stop: 04/25/25 12:29 Last Admin: 04/26/24 09:02 Dose: 17.2 mg Sevelamer Carbonate (Sevelamer Carbonate 800 Mg Tablet) 1,600 mg PO TID.WITH.MEALS [facility]AG[facility] Stop: 04/24/25 16:59 Last Admin: 04/26/24 11:46 Dose: 1,600 mg Sodium Chloride (Sodium Chloride 0.9 % 10 Ml Syringe) 0 ml IV-PUSH PRN PRN PRN Reason: Flush Stop: 04/20/25 16:59 Last Admin: 04/22/24 10:29 Dose: 40 ml Sodium Chloride (Sodium Chloride 0.9 % 10 Ml Syringe) 0 ml IV-PUSH PRN PRN PRN Reason: Flush Stop: 04/20/25 17:06 Last Admin: 04/20/24 19:29 Dose: 60 ml Sodium Chloride (Sodium Chloride 0.9 % 10 Ml Vial.Pf) 10 ml INJECTION PRN PRN PRN Reason: Dilution Stop: 04/25/25 13:47 Last Admin: 04/25/24 14:27 Dose: 10 ml Sodium Chloride (Sodium Chloride 0.9 % 10 Ml Syringe) 10 ml IV-PUSH PRN PRN PRN Reason: Flush Stop: 04/25/25 13:47 Allergies No Known Allergies Allergy (Verified 11/29/23 08:52) Results - Nephrology Labs 04/26/24 04:13 04/26/24 04:13 Labs: 04/25/24 04/26/24 19:40 04:13 BUN 62 H Creatinine 11.54 H D Phosphorus 8.3 H Albumin 3.8 Urine Color Colorless Urine Appearance Clear Urine pH 6.0 Ur Specific [place] 1.009 Urine Protein Negative Urine Glucose (UA) Normal Urine Ketones Negative Urine Occult Blood 2+ H Urine Nitrite Negative Ur Leukocyte Esterase 3+ H Urine RBC 10-19 H Urine WBC 20-49 H Urine Bacteria None seen Radiology Impressions Impressions - last 24 hours: Impressions Vessel Mapping-Hemodialysis Access 04/25/24 09:40 IMPRESSION: Positive study for left brachial vein DVT. Impression dictated by: Chinedu Escalante MD04/26/2024 11:59 AM Dictation Location: [id number] 04/25/24 11:00 IMPRESSION: Successful CT-guided kidney biopsy. Impression dictated by: Luis Eduardo Villasenor Jr., D.O.04/25/2024 2:28 PM Dictation Location: [place] [address] Chest X-Ray 04/25/24 16:58 IMPRESSION: Right basilar opacity and effusion. Moderate retained stool. No bowel obstruction. No free air. Impression dictated by: Andrea Zayas M.D.04/25/2024 7:27 PM Dictation Location: [place] [address] Any impression(s) listed above is documentation that was entered by the reading physician into a diagnostic report(s) for Ness Beaver. I have reviewedthe report(s) and am incorporating any findings in the treatment plan of this patient where applicable. A&P - Nephrology Assessment/Plan (1) JASMINA (acute kidney injury): Assessment/Problem Details: Patient is a JASMINA due to unclear etiology. Differential diagnoses are RPGN or ATN. Patient has no evidence of obstructive uropathy on CAT scan. Patient has history hepatitis B and C. He had polysubstance abuse as well. workup for RPGN including ANCA, serum cryoglobulin, anti-GBM, lupus, C3, C4 and paraproteinemia allcame back unremarkable. (2) Hyperkalemia: Assessment/Problem Details: He had hyperkalemia due to the JASMINA and metabolic acidosis. His hyperkalemia wascorrected with dialysis. (3) Metabolic acidosis: Assessment/Problem Details: He had metabolic acidosis likely due to the JASMINA. His metabolic acidosis corrected with dialysis. (4) Hepatitis C: Assessment/Problem Details: Patient has a known history of hepatitis C. (5) Anemia: Assessment/Problem Details: He has a anemia due to the unclear etiology. He has a normal haptoglobin with mildly elevated LDH and no evidence of schistocytes on peripheral smear so possibility of hemolytic anemia is low. He hasnormal iron stores B12 and folate level. Plan * Urine output has increased and renal function expected to improve although creatinine still 11 mg/dL. Patient has no acidosis or hyperkalemia. No indication for dialysis at this point. Will continue monitor renal function in the next 24 to 48 hours. Patient is can be discharged home by tomorrow if renal function stabilizes or start to improve. * Patient is also had kidney biopsy done. Will review the pathology and to address any further treatment if needed. I am expecting that patient could have rhabdomyolysis versus ATN prior to admission. Baseline creatinine as stated above was 0.8 mg/dL on October 2023. Serology study for glomerulonephritis were unremarkable. * Continue sevelamer to 1600 mg 3 times daily for hyperphosphatemia. Phosphorus is expected to improve with improvement of renal function. Patient has incidental finding of right brachial vein thrombus which possibly related to IV access.Patient just had kidney biopsy and systemic anticoagulation is can be deleterious at this point. Right brachial vein thrombus has minimal risk and the patient has no significant swelling of the rightarm. Will discontinue temporary right IJ hemodialysis catheter and monitor for the next 48-72 hourswith no dialysis. Patient had a fever seems itzel related to influenza. All cultures are negative atthis point. Patient is can be discharged home from renal point if serum creatinine tomorrow is the same or improving with no acidosis or hyperkalemia. Creatinine may stay elevated for quite some time before getting better. Renal function may or may not recover completely however he does not need dialysis at this point. Patientwill need follow-up in renal clinic with repeat lab in 3 to 5 days if he is going to be discharged home. Plan of care was discussed with Dr. Jones. Documented By: Sergio Harris MD 04/26/24 1402 Signed By: 04/26/24 1406 [facility]02-25-2025 Progress note Author Rosalinda Jones [facility] Note Date/Time April 25, 2024 5:10pm [facility] [address] [place] [address] Hospitalist Progress Note Signed Patient: Ness Beaver MR#: [id number] 1230 : 1980 Acct:[id number] Age/Sex: 44 / M Adm Date: 5 Loc: Room: [address] [place] [address] Type: ADM IN Attending Dr: Rosalinda Jones MD Copies to: ~ Date of Service: 04/25/2024 Subjective Subjective Narrative: Patient assessed laying comfortably in bed, denies any pain and is awaiting kidney biopsy. Reports that his last BM was multiple days ago GENERAL: Alert, oriented, comfortable HEENT: NC/AT, EOMI, PERRL, conjunctiva clear CARDIOVASCULAR: Regular rate and regular rhythm, no murmurs/rubs/gallops RESPIRATORY: nonlabored work of breathing CTAB ABDOMEN: Soft, non-tender, non-distended, normal bowel sounds EXTREMITIES: No edema NEURO: Cranial nerves grossly intact, no focal neurologic signs Exam Physical Exam Vital Signs: Temp Pulse Resp BP Pulse Ox O2 Del Method O2 Flow Rate 98.9 F 68 20 150/90 H 94 L Room Air 2 04/25/24 08:41 04/25/24 08:41 04/25/24 08:41 04/25/24 08:41 04/25/24 08:41 04/25/24 08:41 04/22/24 13:07 Objective Lab Results 04/23/24 03:39 04/25/24 04:18 Meds Allergies and Active Meds Allergies No Known Allergies Allergy (Verified 11/29/23 08:52) Active Meds: Active Medications Generic Name Dose Route Start Last Admin Trade Name Freq PRN Reason Stop Dose Admin Acetaminophen 650 mg 04/20/24 17:07 04/24/24 21:12 Acetaminophen 325 Mg Tablet PO 04/20/25 17:06 650 mg Q4H PRN Administration Pain Scale 1 - 3 or fever Bisacodyl 10 mg 04/20/24 17:07 Bisacodyl 5 Mg Tablet. PO 04/20/25 17:06 DAILY PRN Constipation Docusate Sodium 100 mg 04/20/24 21:00 04/24/24 21:12 Docusate 100 Mg Capsule PO 04/20/25 20:59 100 mg BID SAGAR Administration Heparin Sodium (Porcine) 2,200 unit 04/20/24 15:58 04/22/24 10:30 Heparin 10,000 Unit/10 Ml Vial IV-PUSH 04/20/25 15:57 2,200 unit PRN PRN Administration Dialysis Heparin Sodium (Porcine) 5,000 unit 04/20/24 21:00 04/24/24 21:12 Heparin 5,000 Unit/Ml Vial SUBCUT 04/20/25 20:59 5,000 unit Q12HR SAGAR Administration Heparin Sodium (Porcine) 3,000 unit 04/22/24 08:23 04/22/24 10:30 Heparin 10,000 Unit/10 Ml Vial IV 04/20/25 19:25 3,000 unit PRN PRN Administration Dialysis Heparin Sodium (Porcine) 1,500 unit 04/22/24 08:23 04/22/24 10:31 Heparin 10,000 Unit/10 Ml Vial IV 04/20/25 19:25 1,500 unit PRN PRN Administration Dialysis Sodium Chloride 1,000 mls @ 0 mls/hr 04/20/24 17:00 04/22/24 10:32 0.9% Sodium Chloride 1,000 Ml MISCELLANE 04/20/25 16:59 Infused .Q0M PRN Infusion Dialysis As Directed Methadone HCl 220 mg 04/20/24 20:45 04/24/24 08:38 Methadone 10 Mg/Ml Oral Concentrate PO 220 mg DAILY [facility] Administration Metoprolol Tartrate 5 mg 04/20/24 17:15 04/24/24 17:12 Metoprolol Tartrate 5 Mg/5 Ml Vial IV-PUSH 04/20/25 17:14 5 mg Q4H PRN Administration Blood Pressure Nicotine 1 each 04/20/24 17:10 04/25/24 08:43 Nicotine Patch 14 Mg/24hr 1 Each Patch.Td24 TRANSDERML 05/03/24 09:01 1 each DAILY [facility] Administration Nicotine Polacrilex 2 mg 04/20/24 17:07 Nicotine Polacrilex 2 Mg Gum BUCCAL 04/20/25 17:06 Q2HR PRN Nicotine Cravings Polyethylene Glycol 17 gm 04/20/24 21:00 04/24/24 21:13 Polyethylene Glycol 3350 17 Gm Powd.Pack PO 04/20/25 20:59 Not Given BID SAGAR Prochlorperazine Edisylate 5 mg 04/20/24 17:15 04/25/24 06:00 Prochlorperazine Edisylate 10 Mg/2 Ml Vial IV-PUSH 04/20/25 17:14 5 mg Q4H PRN Administration Nausea OR Vomiting Sevelamer Carbonate 1,600 mg 04/24/24 17:00 04/25/24 09:54 Sevelamer Carbonate 800 Mg Tablet PO 04/24/25 16:59 Not Given TID.WITH.MEALS SAGAR Sodium Chloride 0 ml 04/20/24 17:00 04/22/24 10:29 Sodium Chloride 0.9 % 10 Ml Syringe IV-PUSH 04/20/25 16:59 40 ml PRN PRN Administration Flush Sodium Chloride 0 ml 04/20/24 17:07 04/20/24 19:29 Sodium Chloride 0.9 % 10 Ml Syringe IV-PUSH 04/20/25 17:06 60 ml PRN PRN Administration Flush A&P - Hospitalist Assessment/Plan (1) JASMINA (acute kidney injury): (2) Hyperkalemia: (3) Metabolic acidosis: (4) Anemia: (5) Vapes nicotine containing substance: Plan Acute kidney injury, hyperkalemia, anemia - Nephrology following for hemodialysis needs, held now. Extensive work up ordered for vasculitis, lupus, and other etiologies of kidney injury. Taken for kidney biopsy today. - QTc < 500, continue home methadone dose - DVT prophylaxis with heparin The patient has been seen and examined. Progress note written by medical assistant per diem Dr. Trevin Tapia. I personally obtained the baldwin and critical portions of the history and physical exam. I reviewed the chart, the team's documentation, and discussed the patient care with the team. I agree with the team's medical decision making and have edited the note to reflect my clinical findings and my assessment and plan. Patient developed some nausea and episodes of vomiting after he is eating, he denies any abdominal pain, but he tells me that he has been constipated for 4 days, passing flatus. He denies any dysuria urgency frequency. He complains ofsome congestion but no chest pain no shortness of breath, fevers noted. Patientadmits to using IV drugs in bilateral antecubital area and injecting in the neck He does have some tenderness of the right upper extremity in the biceps area butno significant skin lesions, no neurovascular intact temporal Right IJ hemodialysis catheter removed today Physical exam: General -awake, alert, oriented ?3, not in acute distress, however appears to beweak and fatigued, he does not appear to be septic or toxic Cardiovascular -S1 with S2 Pulmonary - clear to auscultation bilaterally Gastrointestinal - abdomen is soft, nondistended, nontender, bowel sounds positive Extremities -no edema Neurological -no focal neurological dysfunction noted 1. Acute kidney injury of unclear etiology, biopsy done on April 25, unable to do any DVT chemoprophylaxis or any DVT treatment due to recent biopsy Nonoliguric, for now dialysis catheter removed, will continue to follow kidney function At this point hemodynamically stable 2. IV drug user 3. Low-grade fevers, rule out infection, Blood cultures pending, I will order chest x-ray as well as abdominal x-ray 4. Incidental finding of right brachial DVT We will do venous duplex ultrasound,unable anticoagulate due to recent kidney biopsy Documented By: Rosalinda Jones MD 04/25/24 1147 Signed By: <Electronically signed by Rosalinda Jones MD> 04/25/24 1710 <Electronically signed by DO RITA Dean> 04/25/24 1205 [facility] Work Phone: [phone]) 705-179602-25-2025 Progress note Author [facility] Note Date/Time April 25, 2024 4:09pm [facility] [address] [place] [address] Nephrology Progress Note Signed Patient: Ness Beaver MR#: [id number] 1230 : 1980 Acct:[id number] Age/Sex: 44 / M Adm Date: 5 Loc: Room: [address] [place] [address] Type: ADM IN Attending Dr: Rosalinda Jones MD Copies to: ~ Date of Service: 04/25/2024 Subjective Subjective Narrative: This is a 44-year male with a medical history of hepatitis B and C, polysubstance abuse was presented to the [facility] for nausea and vomiting. On evaluation emergency room patient was found to have a acute kidneyinjury with elevated serum creatinine 20 mg/dL and BUN 176 mg/dL. He was also found to have a hyperkalemia with serum potassium 6.7 mmol/L and metabolic acidosis serum bicarbonate 14 mmol/L. Patient was found to have anemia with a hemoglobin 12.2 g/dL. His CK was 742. Patient has a history of polysubstance abuse and reported to use of meth and cocaine in the past. He is also follows with the methadone clinic. Patient was treated for hyperkalemia with calcium gluconate, insulin plus D50 and Lokelma. Patient was started on a bicarbonate drip. He was given sodium bicarbonate 100 mEq IV x 1 dose and was transferred to [facility] [place]. Interim history In his room. He denies any complaints. He just had kidney biopsy done today for JASMINA of unknown etiology. Urine output has increased over the last 24 hours 0.73 mL milligram per hour with total 1525 and -1275. Serum creatinine stabilized at 11 mg/dL although thelast hemodialysis was on April 22. Patient has temporary right IJ hemodialysis catheter that has been running poorly over the last couple of treatment. Vascular surgery was consulted for tunneled hemodialysis catheter. Patient also had venous mapping that incidentally showed thrombus in one of the mid to distal brachial vein segment on the right side. Patient presented with JASMINA with creatinine 20 mg/dL for unknown reason possibly related hepatitis or polysubstance abuse. Baseline creatinine was 0.86 mg/dL on October 2023. Exam Physical Exam Vital Signs: Temp Pulse Resp BP Pulse Ox O2 Del Method O2 Flow Rate 37.9 C H 71 18 129/84 95 Room Air 2 04/25/24 15:44 04/25/24 15:44 04/25/24 15:44 04/25/24 15:44 04/25/24 15:44 04/25/24 15:44 04/22/24 13:07 Narrative: Constitutional: Appears comfortable and not in distress HEENT: No pallor or Jaundice Cardiovascular: RRR, normal S1-S2, no gallop or rub, No JVD Respiratory: Good bilateral air entry no wheezing or crackles Gastrointestinal: Soft, non tender, positive bowel sounds Extremities: No edema Skin: No rashes or bruises Musculoskeletal: No joints swellings or inflammation Neurology: Awake, alert, oriented ?3, No focal motor or sensory deficits Psych: Normal mood and affect Vascular access: Right IJ temporary hemodialysis catheter. It has poor blood flow during last 2 dialysis treatments Objective Intake and Output I&O: Intake & Output 04/22/24 04/23/24 04/24/24 04/25/24 23:59 23:59 23:59 23:59 Intake Total 850 / 850 950 / 950 700 / 700 Output Total 1001 / 1001 600 / 600 1100 / 1100 925 / 925 Balance -151 / -151 350 / 350 -400 / -400 -925 / -925 Weight 71.5 kg 73 kg 72.8 kg 75.8 kg Meds and Allergies Meds: Active Medications Acetaminophen (Acetaminophen 325 Mg Tablet) 650 mg PO Q4H PRN PRN Reason: Pain Scale 1 - 3 or fever Stop: 04/20/25 17:06 Last Admin: 04/25/24 15:46 Dose: 650 mg Bisacodyl (Bisacodyl 5 Mg Tablet.Dr) 10 mg PO DAILY PRN PRN Reason: Constipation Stop: 04/20/25 17:06 Last Admin: 04/25/24 12:14 Dose: 10 mg Heparin Sodium (Porcine) (Heparin 10,000 Unit/10 Ml Vial) 2,200 unit IV-PUSH PRN PRN PRN Reason: Dialysis Stop: 04/20/25 15:57 Last Admin: 04/22/24 10:30 Dose: 2,200 unit Heparin Sodium (Porcine) (Heparin 5,000 Unit/Ml Vial) 5,000 unit SUBCUT Q12HR [facility]AGAR Stop: 04/20/25 20:59 Last Admin: 04/24/24 21:12 Dose: 5,000 unit Heparin Sodium (Porcine) (Heparin 10,000 Unit/10 Ml Vial) 3,000 unit IV PRN PRN PRN Reason: Dialysis Stop: 04/20/25 19:25 Last Admin: 04/22/24 10:30 Dose: 3,000 unit Heparin Sodium (Porcine) (Heparin 10,000 Unit/10 Ml Vial) 1,500 unit IV PRN PRN PRN Reason: Dialysis Stop: 04/20/25 19:25 Last Admin: 04/22/24 10:31 Dose: 1,500 unit Sodium Chloride (0.9% Sodium Chloride 1,000 Ml) 1,000 mls @ 0 mls/hr MISCELLANE.Q0M PRN PRN Reason: Dialysis Stop: 04/20/25 16:59 Last Infusion: 04/22/24 10:32 Dose: Infused Lactulose (Lactulose 20 Gm/30 Ml Udc) 30 gm PO Q6H PRN PRN Reason: Constipation Stop: 04/25/25 12:03 Methadone HCl (Methadone 10 Mg/Ml Oral Concentrate) 220 mg PO DAILY [facility] Last Admin: 04/25/24 12:15 Dose: 220 mg Metoprolol Tartrate (Metoprolol Tartrate 5 Mg/5 Ml Vial) 5 mg IV-PUSH Q4H PRN PRN Reason: Blood Pressure Stop: 04/20/25 17:14 Last Admin: 04/24/24 17:12 Dose: 5 mg Nicotine (Nicotine Patch 14 Mg/24hr 1 Each Patch.Td24) 1 each TRANSDERML DAILY [facility] Stop: 05/03/24 09:01 Last Admin: 04/25/24 08:43 Dose: 1 each Nicotine Polacrilex (Nicotine Polacrilex 2 Mg Gum) 2 mg BUCCAL Q2HR PRN PRN Reason: Nicotine Cravings Stop: 04/20/25 17:06 Pantoprazole Sodium (Pantoprazole 40 Mg Vial) 40 mg IV-PUSH DAILY [facility] Stop: 04/25/25 13:49 Last Admin: 04/25/24 14:27 Dose: 40 mg Polyethylene Glycol (Polyethylene Glycol 3350 17 Gm Powd.Pack) 17 gm PO BID [facility] Stop: 04/20/25 20:59 Last Admin: 04/25/24 12:14 Dose: Not Given Prochlorperazine Edisylate (Prochlorperazine Edisylate 10 Mg/2 Ml Vial) 5 mg IV- PUSH Q4H PRN PRN Reason: Nausea OR Vomiting Stop: 04/20/25 17:14 Last Admin: 04/25/24 14:27 Dose: 5 mg Sennosides (Sennosides 8.6 Mg Tablet) 17.2 mg PO BID [facility] Stop: 04/25/25 12:29 Last Admin: 04/25/24 12:14 Dose: 17.2 mg Sevelamer Carbonate (Sevelamer Carbonate 800 Mg Tablet) 1,600 mg PO TID.WITH.MEALS [facility] Stop: 04/24/25 16:59 Last Admin: 04/25/24 12:13 Dose: 1,600 mg Sodium Chloride (Sodium Chloride 0.9 % 10 Ml Syringe) 0 ml IV-PUSH PRN PRN PRN Reason: Flush Stop: 04/20/25 16:59 Last Admin: 04/22/24 10:29 Dose: 40 ml Sodium Chloride (Sodium Chloride 0.9 % 10 Ml Syringe) 0 ml IV-PUSH PRN PRN PRN Reason: Flush Stop: 04/20/25 17:06 Last Admin: 04/20/24 19:29 Dose: 60 ml Sodium Chloride (Sodium Chloride 0.9 % 10 Ml Vial.Pf) 10 ml INJECTION PRN PRN PRN Reason: Dilution Stop: 04/25/25 13:47 Last Admin: 04/25/24 14:27 Dose: 10 ml Sodium Chloride (Sodium Chloride 0.9 % 10 Ml Syringe) 10 ml IV-PUSH PRN PRN PRN Reason: Flush Stop: 04/25/25 13:47 Allergies No Known Allergies Allergy (Verified 11/29/23 08:52) Results - Nephrology Labs 04/23/24 03:39 04/25/24 04:18 Labs: 04/25/24 04:18 BUN 55 H Creatinine 11.00 H D Phosphorus 7.1 H Albumin 3.7 Radiology Impressions Impressions - last 24 hours: Any impression(s) listed above is documentation that was entered by the reading physician into a diagnostic report(s) for Ness Beaver. I have reviewedthe report(s) and am incorporating any findings in the treatment plan of this patient where applicable. A&P - Nephrology Assessment/Plan (1) JASMINA (acute kidney injury): Assessment/Problem Details: Patient is a JASMINA due to unclear etiology. Differential diagnoses are RPGN or ATN. Patient has no evidence of obstructive uropathy on CAT scan. Patient has history hepatitis B and C. He had polysubstance abuse as well. workup for RPGN including ANCA, serum cryoglobulin, anti-GBM, lupus, C3, C4 and paraproteinemia all came back unremarkable. (2) Hyperkalemia: Assessment/Problem Details: He had hyperkalemia due to the JASMINA and metabolic acidosis. His hyperkalemia wascorrected with dialysis. (3) Metabolic acidosis: Assessment/Problem Details: He had metabolic acidosis likely due to the JASMINA. His metabolic acidosis corrected with dialysis. (4) Hepatitis C: Assessment/Problem Details: Patient has a known history of hepatitis C. (5) Anemia: Assessment/Problem Details: He has a anemia due to the unclear etiology. He has a normal haptoglobin with mildly elevated LDH and no evidence of schistocytes on peripheral smear so possibility of hemolytic anemia is low. He has normal iron stores B12 and folate level. Plan * Urine output has increased. Patient has no hyperkalemia or acidosis despite not having dialysis over the last 3 days. Creatinine stabilized at 11 mg/dL however its much better than admission creatinine 20 mg/dL. With increased urine output and no acidosis or hyperkalemia, there is hyperstimulated that renal function will continue to improve spontaneously especially with better blood pressure. Will hold off on placement of tunneled hemodialysis catheter at this point. Will remove the temporary hemodialysis catheter and will monitor over the next few days specially patient has mild fever and red exit site suspicious of possible infection. * Patient is also had kidney biopsy done. Will review the pathology and to address any further treatment if needed. I am expecting that patient could have rhabdomyolysis versus ATN prior to admission. Baseline creatinine as stated above was 0.8 mg/dL on October 2023. * Continue sevelamer to 1600 mg 3 times daily for hyperphosphatemia. Patient has incidental finding of right brachial vein thrombus which possibly related to IV access. Patient just had kidney biopsy and systemic anticoagulation is can be deleterious at this point. Right brachial vein thrombus has minimal risk and the patient has no significant swelling of the right arm. Will discontinue temporary right IJ hemodialysis catheter and monitor for the next 48-72 hours with no dialysis. If renal function continues to be stable or improving, patient can be discharged home with no dialysis to follow-up as outpatient with additional renal panel. Plan of care was discussed with Dr. Jones. Documented By: Sergio Harris MD 04/25/24 1533 Signed By: <Electronically signed by MD Sergio Harris> 04/25/24 4039 [facility] Work Phone: 1(156) 274-537202-25-2025 [place] [id number] Hospitalist Progress Note Signed Patient: Ness Beaver MR#: [id number] 1230 : 1980 Acct:[id number] Age/Sex: 44 / M Adm Date: 5 Loc: 4P Room: [address] [place] [address] Type: ADM IN Attending Dr: Rosalinda Jones MD Copies to: ~ Date of Service: 04/25/2024 Subjective Subjective Narrative: Patient assessed laying comfortably in bed, denies any pain and is awaiting kidney biopsy. Reports that his last BM was multiple days ago GENERAL: Alert, oriented, comfortable HEENT: NC/AT, EOMI, PERRL, conjunctiva clear CARDIOVASCULAR: Regular rate and regular rhythm, no murmurs/rubs/gallops RESPIRATORY: nonlabored work of breathing CTAB ABDOMEN: Soft, non-tender, non-distended, normal bowel sounds EXTREMITIES: No edema NEURO: Cranial nerves grossly intact, no focal neurologic signs Exam Physical Exam Vital Signs: Temp Pulse Resp BP Pulse Ox O2 Del Method O2 Flow Rate 98.9 F 68 20 150/90 H 94 L Room Air 2 04/25/24 08:41 04/25/24 08:41 04/25/24 08:41 04/25/24 08:41 04/25/24 08:41 04/25/24 08:41 04/22/24 13:07 Objective Lab Results 04/23/24 03:39 04/25/24 04:18 Meds Allergies and Active Meds Allergies No Known Allergies Allergy (Verified 11/29/23 08:52) Active Meds: Active Medications Generic Name Dose Route Start Last Admin Trade Name Freq PRN Reason Stop Dose Admin Acetaminophen 650 mg 04/20/24 17:07 04/24/24 21:12 Acetaminophen 325 Mg Tablet PO 04/20/25 17:06 650 mg Q4H PRN Administration Pain Scale 1 - 3 or fever Bisacodyl 10 mg 04/20/24 17:07 Bisacodyl 5 Mg Tablet. PO 04/20/25 17:06 DAILY PRN Constipation Docusate Sodium 100 mg 04/20/24 21:00 04/24/24 21:12 Docusate 100 Mg Capsule PO 04/20/25 20:59 100 mg BID SAGAR Administration Heparin Sodium (Porcine) 2,200 unit 04/20/24 15:58 04/22/24 10:30 Heparin 10,000 Unit/10 Ml Vial IV-PUSH 04/20/25 15:57 2,200 unit PRN PRN Administration Dialysis Heparin Sodium (Porcine) 5,000 unit 04/20/24 21:00 04/24/24 21:12 Heparin 5,000 Unit/Ml Vial SUBCUT 04/20/25 20:59 5,000 unit Q12HR SAGAR Administration Heparin Sodium (Porcine) 3,000 unit 04/22/24 08:23 04/22/24 10:30 Heparin 10,000 Unit/10 Ml Vial IV 04/20/25 19:25 3,000 unit PRN PRN Administration Dialysis Heparin Sodium (Porcine) 1,500 unit 04/22/24 08:23 04/22/24 10:31 Heparin 10,000 Unit/10 Ml Vial IV 04/20/25 19:25 1,500 unit PRN PRN Administration Dialysis Sodium Chloride 1,000 mls @ 0 mls/hr 04/20/24 17:00 04/22/24 10:32 0.9% Sodium Chloride 1,000 Ml MISCELLANE 04/20/25 16:59 Infused .Q0M PRN Infusion Dialysis As Directed Methadone HCl 220 mg 04/20/24 20:45 04/24/24 08:38 Methadone 10 Mg/Ml Oral Concentrate PO 220 mg DAILY SAGAR Administration Metoprolol Tartrate 5 mg 04/20/24 17:15 04/24/24 17:12 Metoprolol Tartrate 5 Mg/5 Ml Vial IV-PUSH 04/20/25 17:14 5 mg Q4H PRN Administration Blood Pressure Nicotine 1 each 04/20/24 17:10 04/25/24 08:43 Nicotine Patch 14 Mg/24hr 1 Each Patch.Td24 TRANSDERML 05/03/24 09:01 1 each DAILY SAGAR Administration Nicotine Polacrilex 2 mg 04/20/24 17:07 Nicotine Polacrilex 2 Mg Gum BUCCAL 04/20/25 17:06 Q2HR PRN Nicotine Cravings Polyethylene Glycol 17 gm 04/20/24 21:00 04/24/24 21:13 Polyethylene Glycol 3350 17 Gm Powd.Pack PO 04/20/25 20:59 Not Given BID SAGAR Prochlorperazine Edisylate 5 mg 04/20/24 17:15 04/25/24 06:00 Prochlorperazine Edisylate 10 Mg/2 Ml Vial IV-PUSH 04/20/25 17:14 5 mg Q4H PRN Administration Nausea OR Vomiting Sevelamer Carbonate 1,600 mg 04/24/24 17:00 04/25/24 09:54 Sevelamer Carbonate 800 Mg Tablet PO 04/24/25 16:59 Not Given TID.WITH.MEALS SAGAR Sodium Chloride 0 ml 04/20/24 17:00 04/22/24 10:29 Sodium Chloride 0.9 % 10 Ml Syringe IV-PUSH 04/20/25 16:59 40 ml PRN PRN Administration Flush Sodium Chloride 0 ml 04/20/24 17:07 04/20/24 19:29 Sodium Chloride 0.9 % 10 Ml Syringe IV-PUSH 04/20/25 17:06 60 ml PRN PRN Administration Flush A&P - Hospitalist Assessment/Plan (1) JASMINA (acute kidney injury): (2) Hyperkalemia: (3) Metabolic acidosis: (4) Anemia: (5) Vapes nicotine containing substance: Plan Acute kidney injury, hyperkalemia, anemia - Nephrology following for hemodialysis needs, held now. Extensive work up ordered for vasculitis, lupus, and other etiologies of kidney injury. Taken for kidney biopsy today. - QTc < 500, continue home methadone dose - DVT prophylaxis with heparin The patient has been seen and examined. Progress note written by medical assistant per diem Dr. Trevin Tapia. I personally obtained the baldwin and critical portions of the history and physical exam. I reviewedthe chart, the team's documentation, and discussed the patient care with the team. I agree with the team's medical decision making and have edited the note to reflect my clinical findings and my assessment and plan. Patient developed some nausea and episodes of vomiting after he is eating, he denies any abdominal pain, but he tells me that he has been constipated for 4 days, passing flatus. He denies any dysuriaurgency frequency. He complains ofsome congestion but no chest pain no shortness of breath, fevers noted. Patientadmits to using IV drugs in bilateral antecubital area and injecting in the neck He does have some tenderness of the right upper extremity in the biceps area butno significant skinlesions, no neurovascular intact temporal Right IJ hemodialysis catheter removed today Physical exam: General -awake, alert, oriented ?3, not in acute distress, however appears to beweak and fatigued, he does not appear to be septic or toxic Cardiovascular -S1 with S2 Pulmonary - clear to auscultation bilaterally Gastrointestinal - abdomen is soft, nondistended, nontender, bowel sounds positive Extremities -no edema Neurological -no focal neurological dysfunction noted 1. Acute kidney injury of unclear etiology, biopsy done on April 25, unable to do any DVT chemoprophylaxis or any DVT treatment due to recent biopsy Nonoliguric, for now dialysis catheter removed, will continue to follow kidney function At this point hemodynamically stable 2. IV drug user 3. Low-grade fevers, rule out infection, Blood cultures pending, I will order chest x-ray as well as abdominal x-ray 4. Incidental finding of right brachial DVT We will do venous duplex ultrasound,unable anticoagulate due to recent kidney biopsy Documented By: Rosalinda Jones MD 04/25/24 1147 Signed By: 04/25/24 1710 04/25/24 1202 [facility]02-25-2025 [place] [address] Nephrology Progress Note Signed Patient: Ness Beaver MR#: [id number] 1230 : 1980 Acct:[id number] Age/Sex: 44 / M Adm Date: 5 Loc: Room: [address] [place] [address] Type: ADM IN Attending Dr: Rosalinda Jones MD Copies to: ~ Date of Service: 04/25/2024 Subjective Subjective Narrative: This is a 44-year male with a medical history of hepatitis B and C, polysubstance abuse was presented to the [facility] for nausea and vomiting. On evaluation emergency room patient was found to have a acute kidneyinjury with elevated serum creatinine 20 mg/dL and BUN 176 mg/dL. He was also found to have a hyperkalemia with serum potassium 6.7 mmol/L and metabolic acidosis serum bicarbonate 14 mmol/L. Patient was found to have anemia with a hemoglobin 12.2 g/dL. His CK was 742. Patient has a history of polysubstance abuse and reported to use of meth and cocaine in the past. He is also follows with the methadone clinic. Patient was treated for hyperkalemia with calcium gluconate, insulin plus D50 and Lokelma. Patient was started on a bicarbonate drip. He was given sodium [id number] mEq IV x 1 dose and was transferred [place] [facility] [place]. Interim history In his room. He denies any complaints. He just had kidney biopsy done today for JASMINA of unknown etiology. Urine output has increased over the last 24 hours 0.73 mL milligram per hour with total 1525 and -1275. Serum creatinine stabilized at 11 mg/dL although thelast hemodialysis was on April 22. Patient has temporary right IJ hemodialysis catheter that has been running poorly over the last couple of treatment. Vascular surgery was consulted for tunneled hemodialysis catheter. Patient also had venous mapping that incidentally showed thrombus in one of the mid to distal brachial vein segment on the right side. Patient presented with JASMINA with creatinine 20 mg/dL for unknown reason possibly related hepatitis or polysubstance abuse. Baseline creatinine was 0.86 mg/dL on October 2023. Exam Physical Exam Vital Signs: Temp Pulse Resp BP Pulse Ox O2 Del Method O2 Flow Rate 37.9 C H 71 18 129/84 95 Room Air 2 04/25/24 15:44 04/25/24 15:44 04/25/24 15:44 04/25/24 15:44 04/25/24 15:44 04/25/24 15:44 04/22/24 13:07 Narrative: Constitutional: Appears comfortable and not in distress HEENT: No pallor or Jaundice Cardiovascular: RRR, normal S1-S2, no gallop or rub, No JVD Respiratory: Good bilateral air entry no wheezing or crackles Gastrointestinal: Soft, non tender, positive bowel sounds Extremities: No edema Skin: No rashes or bruises Musculoskeletal: No joints swellings or inflammation Neurology: Awake, alert, oriented ?3, No focal motor or sensory deficits Psych: Normal mood and affect Vascular access: Right IJ temporary hemodialysis catheter. It has poor blood flow during last 2 dialysis treatments Objective Intake and Output I&O: Intake & Output 04/22/24 04/23/24 04/24/24 04/25/24 23:59 23:59 23:59 23:59 Intake Total 850 / 850 950 / 950 700 / 700 Output Total 1001 / 1001 600 / 600 1100 / 1100 925 / 925 Balance -151 / -151 350 / 350 -400 / -400 -925 / -925 Weight 71.5 kg 73 kg 72.8 kg 75.8 kg Meds and Allergies Meds: Active Medications Acetaminophen (Acetaminophen 325 Mg Tablet) 650 mg PO Q4H PRN PRN Reason: Pain Scale 1 - 3 or fever Stop: 04/20/25 17:06 Last Admin: 04/25/24 15:46 Dose: 650 mg Bisacodyl (Bisacodyl 5 Mg Tablet.Dr) 10 mg PO DAILY PRN PRN Reason: Constipation Stop: 04/20/25 17:06 Last Admin: 04/25/24 12:14 Dose: 10 mg Heparin Sodium (Porcine) (Heparin 10,000 Unit/10 Ml Vial) 2,200 unit IV-PUSH PRN PRN PRN Reason: Dialysis Stop: 04/20/25 15:57 Last Admin: 04/22/24 10:30 Dose: 2,200 unit Heparin Sodium (Porcine) (Heparin 5,000 Unit/Ml Vial) 5,000 unit SUBCUT Q12HR SAGAR Stop: 04/20/25 20:59 Last Admin: 04/24/24 21:12 Dose: 5,000 unit Heparin Sodium (Porcine) (Heparin 10,000 Unit/10 Ml Vial) 3,000 unit IV PRN PRN PRN Reason: Dialysis Stop: 04/20/25 19:25 Last Admin: 04/22/24 10:30 Dose: 3,000 unit Heparin Sodium (Porcine) (Heparin 10,000 Unit/10 Ml Vial) 1,500 unit IV PRN PRN PRN Reason: Dialysis Stop: 04/20/25 19:25 Last Admin: 04/22/24 10:31 Dose: 1,500 unit Sodium Chloride (0.9% Sodium Chloride 1,000 Ml) 1,000 mls @ 0 mls/hr MISCELLANE.Q0M PRN PRN Reason: Dialysis Stop: 04/20/25 16:59 Last Infusion: 04/22/24 10:32 Dose: Infused Lactulose (Lactulose 20 Gm/30 Ml Udc) 30 gm PO Q6H PRN PRN Reason: Constipation Stop: 04/25/25 12:03 Methadone HCl (Methadone 10 Mg/Ml Oral Concentrate) 220 mg PO DAILY [facility] Last Admin: 04/25/24 12:15 Dose: 220 mg Metoprolol Tartrate (Metoprolol Tartrate 5 Mg/5 Ml Vial) 5 mg IV-PUSH Q4H PRN PRN Reason: Blood Pressure Stop: 04/20/25 17:14 Last Admin: 04/24/24 17:12 Dose: 5 mg Nicotine (Nicotine Patch 14 Mg/24hr 1 Each Patch.Td24) 1 each TRANSDERML DAILY SAGAR Stop: 05/03/24 09:01 Last Admin: 04/25/24 08:43 Dose: 1 each Nicotine Polacrilex (Nicotine Polacrilex 2 Mg Gum) 2 mg BUCCAL Q2HR PRN PRN Reason: Nicotine Cravings Stop: 04/20/25 17:06 Pantoprazole Sodium (Pantoprazole 40 Mg Vial) 40 mg IV-PUSH DAILY SAGAR Stop: 04/25/25 13:49 Last Admin: 04/25/24 14:27 Dose: 40 mg Polyethylene Glycol (Polyethylene Glycol 3350 17 Gm Powd.Pack) 17 gm PO BID SAGAR Stop: 04/20/25 20:59 Last Admin: 04/25/24 12:14 Dose: Not Given Prochlorperazine Edisylate (Prochlorperazine Edisylate 10 Mg/2 Ml Vial) 5 mg IV- PUSH Q4H PRN PRN Reason: Nausea OR Vomiting Stop: 04/20/25 17:14 Last Admin: 04/25/24 14:27 Dose: 5 mg Sennosides (Sennosides 8.6 Mg Tablet) 17.2 mg PO BID SAGAR Stop: 04/25/25 12:29 Last Admin: 04/25/24 12:14 Dose: 17.2 mg Sevelamer Carbonate (Sevelamer Carbonate 800 Mg Tablet) 1,600 mg PO TID.WITH.MEALS SAGAR Stop: 04/24/25 16:59 Last Admin: 04/25/24 12:13 Dose: 1,600 mg Sodium Chloride (Sodium Chloride 0.9 % 10 Ml Syringe) 0 ml IV-PUSH PRN PRN PRN Reason: Flush Stop: 04/20/25 16:59 Last Admin: 04/22/24 10:29 Dose: 40 ml Sodium Chloride (Sodium Chloride 0.9 % 10 Ml Syringe) 0 ml IV-PUSH PRN PRN PRN Reason: Flush Stop: 04/20/25 17:06 Last Admin: 04/20/24 19:29 Dose: 60 ml Sodium Chloride (Sodium Chloride 0.9 % 10 Ml Vial.Pf) 10 ml INJECTION PRN PRN PRN Reason: Dilution Stop: 04/25/25 13:47 Last Admin: 04/25/24 14:27 Dose: 10 ml Sodium Chloride (Sodium Chloride 0.9 % 10 Ml Syringe) 10 ml IV-PUSH PRN PRN PRN Reason: Flush Stop: 04/25/25 13:47 Allergies No Known Allergies Allergy (Verified 11/29/23 08:52) Results - Nephrology Labs 04/23/24 03:39 04/25/24 04:18 Labs: 04/25/24 04:18 BUN 55 H Creatinine 11.00 H D Phosphorus 7.1 H Albumin 3.7 Radiology Impressions Impressions - last 24 hours: Any impression(s) listed above is documentation that was entered by the reading physician into a diagnostic report(s) for Ness Beaver. I have reviewedthe report(s) and am incorporating any findings in the treatment plan of this patient where applicable. A&P - Nephrology Assessment/Plan (1) JASMINA (acute kidney injury): Assessment/Problem Details: Patient is a JASMINA due to unclear etiology. Differential diagnoses are RPGN or ATN. Patient has no evidence of obstructive uropathy on CAT scan. Patient has history hepatitis B and C. He had polysubstance abuse as well. workup for RPGN including ANCA, serum cryoglobulin, anti-GBM, lupus, C3, C4 and paraproteinemia allcame back unremarkable. (2) Hyperkalemia: Assessment/Problem Details: He had hyperkalemia due to the JASMINA and metabolic acidosis. His hyperkalemia wascorrected with dialysis. (3) Metabolic acidosis: Assessment/Problem Details: He had metabolic acidosis likely due to the JASMINA. His metabolic acidosis corrected with dialysis. (4) Hepatitis C: Assessment/Problem Details: Patient has a known history of hepatitis C. (5) Anemia: Assessment/Problem Details: He has a anemia due to the unclear etiology. He has a normal haptoglobin with mildly elevated LDH and no evidence of schistocytes on peripheral smear so possibility of hemolytic anemia is low. He hasnormal iron stores B12 and folate level. Plan * Urine output has increased. Patient has no hyperkalemia or acidosis despite not having dialysis over the last 3 days. Creatinine stabilized at 11 mg/dL however its much better than admission creatinine 20 mg/dL. With increased urine output and no acidosis or hyperkalemia, there is hyperstimulatedthat renal function will continue to improve spontaneously especially with better blood pressure. Will hold off on placement of tunneled hemodialysis catheter at this point. Will remove the temporaryhemodialysis catheter and will monitor over the next few days specially patient has mild fever and red exit site suspicious of possible infection. * Patient is also had kidney biopsy done. Will review the pathology and to address any further treatment if needed. I am expecting that patient could have rhabdomyolysis versus ATN prior to admission. Baseline creatinine as stated above was 0.8 mg/dL on October 2023. * Continue sevelamer to 1600 mg 3 times daily for hyperphosphatemia. Patient has incidental finding of right brachial vein thrombus which possibly related to IV access.Patient just had kidney biopsy and systemic anticoagulation is can be deleterious at this point. Right brachial vein thrombus has minimal risk and the patient has no significant swelling of the rightarm. Will discontinue temporary right IJ hemodialysis catheter and monitor for the next 48-72 hourswith no dialysis. If renal function continues to be stable or improving, patient can be discharged home with no dialysis to follow-up as outpatient with additional renal panel. Plan of care was discussed with Dr. Jones. Documented By: Sergio Harris MD 04/25/24 3838 Signed By: 04/25/24 1609 [facility]02-25-2025 Radiology Diagnostic study note [facility] [place] [address] CT Scan Report Signed Patient: Ness Beaver MR#: [id number] 1230 : 1980 Acct:[id number] Age/Sex: 44 / M ADM Date: 5 Loc: Room: [address] [place] [address] Type: ADM IN Attending Dr: Rosalinda Jones MD Copies to: MD Rosalinda Gonzalez MD~ Ordering Provider: Ben Bravo MD Date of Service: 04/25/24 CT/CT guided biopsy: JASMINA CT GUIDED kidneyBIOPSY: CLINICAL HISTORY: Acute kidney injury COMPARISON : none FINDINGS: After questions were answered, informed consent was obtained. The patient was placed proneon the CTtable and the right kidney was selected for biopsy. The skin over the right kidneywas prepped and draped in normal sterile fashion. 1% lidocaine was utilized for local anesthesia. Utilizing CT guidance, an 18 Gauge Biopince coaxial system was advanced into the inferior pole right kidney and 2 core biopsies were obtained. After the sample was deemed adequate by pathology,the needle was withdrawn. Hemostasis was achieved. Bandage was applied. The patient tolerated procedure well without immediate complication. Please note that the patient was monitored throughout the procedure by nursing personnel. This CT exam was performed using one or more following dose reduction techniques: Automated exposure control, adjustment of the mA and/or kV accordingto patient size, or use of iterative reconstruction technique. CT/CT guided biopsy IMPRESSION: Successful CT-guided kidney biopsy. Impression dictated by: Luis Eduardo Villasenor Jr. DHilda04/25/2024 2:28 PM Dictation Location: [place] [address] Transcribed By: [facility] 04/25/24 142 Dictated By: Luis Eduardo Villasenor Jr, DO 04/25/24 1427 Signed By: 04/25/24 1428 [facility]02-25-2025 Consult note Author Chinedu Escalante [facility] Note Date/Time April 25, 2024 10:16am [facility] [address] [place] [address] Vascular Surgery Consult Note Signed Patient: Ness Beaver MR#: [id number] 1230 : 1980 Acct:[id number] Age/Sex: 44 / M Adm Date: 5 Loc: Room: [address] [place] [address] Type: ADM IN Attending Dr: Rosalinda Jones MD Copies to: Asiya Boyd APRN, TECHNOLOGY TEACHER MD Rosalinda Lundy MD~ HPI Consult HPI History of present illness: Mr. Beaver is a 44 year old male who presented in acute renal failure. Dr. Harris, analytics associate, requested catheter placement yesterday. Patient was seen in the room and states that he is doing better. He has no complaints today. cc:: CC: Rosalinda Jones MD Data of Consult Consult date: 04/25/2024 Requesting Physician: Rosalinda Jones MD [facility] Medical History Hepatitis B H/O intravenous drug use Hepatitis C Surgical History History of tonsillectomy and adenoidectomy Family History Family/Other Colon cancer Social History Smoking Status: Current every day smoker Tobacco Type: e-cigarettes Substance Use Type: Methamphetamine Substance Abuse Comment: suboxone Allergies & Active Medications Medications and Allergies Allergies No Known Allergies Allergy (Verified 11/29/23 08:52) Exam Physical Exam Vital Signs: Temp Pulse Resp BP Pulse Ox O2 Del Method O2 Flow Rate 98.9 F 68 20 150/90 H 94 L Room Air 2 04/25/24 08:41 04/25/24 08:41 04/25/24 08:41 04/25/24 08:41 04/25/24 08:41 04/25/24 08:41 04/22/24 13:07 Const Other: Patient was seen at the bedside. He was awake alert and oriented he was in no distress he was not complaining of any pain anywhere. He was alone in the room. Results - Vascular Surgery Labs 04/23/24 03:39 04/25/24 04:18 Labs: Laboratory Results - last 24 hr 04/20/24 04/24/24 04/25/24 17:15 10:43 04:18 PT 13.9 H INR 1.2 APTT 30.0 PHA Creatinine Clear N/A 8.29 Sodium 135 L 135 L Potassium 4.8 4.4 Chloride 100 99 Carbon Dioxide 24.3 21.5 Anion Gap 15.5 H 18.9 H BUN 51 H 55 H Creatinine 10.21 H D 11.00 H D Est GFR (CKD-EPI) 5.857 5.356 Glucose 102 H 89 Calcium 9.3 9.5 Phosphorus 6.7 H 7.1 H Serum Total Protein 5.7 L Albumin 3.6 3.7 Albumin (Send Out) 3.1 Globulin (PEP) 2.6 Albumin/Globulin (PEP) 1.2 Ukvux-9-Ozppyobil 0.3 Rttyg-1-Pheufehfw 0.7 Beta Globulins 0.8 Gamma Globulins 0.8 M-Yong Not observed PEP Note Comment SIGIFREDO Screen Negative c-ANCA Antibody <1:20 Proteinase 3 (PR3) Ab <0.2 Atypical p-ANCA <1:20 p-ANCA Antibody <1:20 Anti-Myeloperoxidase <0.2 Glomerular Base Memb Ab <0.2 Free [place] LC, Quant 44.0 H Free Lambda LC, Quant 34.0 H Free [place]/Lambda Ratio 1.29 Hepatitis A IgM Ab Negative Hep Bs Antigen Confirm. indicated Hep Bs Ag Confirmation Positive A Hep Bs Antibody Non reactive Hep B Core Total Ab Positive A Hep B Core IgM Ab Negative Hepatitis B Interp Comment Hepatitis C Ab (EIA) Reactive A Hepatitis C RNA Quant Hcv not detected HCV RNA PCR Test Info Comment PT 13.9 Seconds (9.0-12.9) H 04/25/24 04:18 APTT 30.0 Seconds (25.1-36.5) 04/25/24 04:18 Microbiology Microbiology: 04/21/24 04:30 Urine - Clean-Voided Midstream Urine Culture - Final <9,000 colonies/ml mixed bacterial skin contaminants 2 Days A&P - Vascular (1) JASMINA (acute kidney injury): Plan I did see and speak with the analytics associate today. Dr. Harris would like to hold off hemodialysis at this point in time. I did order vein mapping just in case the patient does not recover. I am worried about placing a tunneled catheter pablo patient who has IV drug abuse issues and history. Therefore I have a low threshold for proceeding to AV fistula creation in a patient such as this. However, we will hold off until further word from his analytics associate. Documented By: Chinedu Escalante MD 04/25/24 1010 Signed By: <Electronically signed by Chinedu Escalante MD> 04/25/24 1016 [facility] Work Phone: 1(453) 392-632402-25-2025 [place] [address] Vascular Surgery Consult Note Signed Patient: Ness Beaver MR#: [id number] 1230 : 1980 Acct:[id number] Age/Sex: 44 / M Adm Date: 5 Loc: 4P Room: [address] [place] [address] Type: ADM IN Attending Dr: Rosalinda Jones MD Copies to: Asiya Boyd, SILICA MIXER OPERATOR, TECHNOLOGY TEACHER MD Rosalinda Lundy MD~ HPI Consult HPI History of present illness: Mr. Beaver is a 44 year old male who presented in acute renal failure. Dr. Harris, analytics associate, requested catheter placement yesterday. Patient was seen in the room and states that he is doing better.He has no complaints today. cc:: CC: Rosalinda Jones MD Data of Consult Consult date: 04/25/2024 Requesting Physician: Rosalinda Jones MD [facility] Medical History Hepatitis B H/O intravenous drug use Hepatitis C Surgical History History of tonsillectomy and adenoidectomy Family History Family/Other Colon cancer Social History Smoking Status: Current every day smoker Tobacco Type: e-cigarettes Substance Use Type: Methamphetamine Substance Abuse Comment: suboxone Allergies & Active Medications Medications and Allergies Allergies No Known Allergies Allergy (Verified 11/29/23 08:52) Exam Physical Exam Vital Signs: Temp Pulse Resp BP Pulse Ox O2 Del Method O2 Flow Rate 98.9 F 68 20 150/90 H 94 L Room Air 2 04/25/24 08:41 04/25/24 08:41 04/25/24 08:41 04/25/24 08:41 04/25/24 08:41 04/25/24 08:41 04/22/24 13:07 Const Other: Patient was seen at the bedside. He was awake alert and oriented he was in no distress he was not complaining of any pain anywhere. He was alone in the room. Results - Vascular Surgery Labs 04/23/24 03:39 04/25/24 04:18 Labs: Laboratory Results - last 24 hr 04/20/24 04/24/24 04/25/24 17:15 10:43 04:18 PT 13.9 H INR 1.2 APTT 30.0 PHA Creatinine Clear N/A 8.29 Sodium 135 L 135 L Potassium 4.8 4.4 Chloride 100 99 Carbon Dioxide 24.3 21.5 Anion Gap 15.5 H 18.9 H BUN 51 H 55 H Creatinine 10.21 H D 11.00 H D Est GFR (CKD-EPI) 5.857 5.356 Glucose 102 H 89 Calcium 9.3 9.5 Phosphorus 6.7 H 7.1 H Serum Total Protein 5.7 L Albumin 3.6 3.7 Albumin (Send Out) 3.1 Globulin (PEP) 2.6 Albumin/Globulin (PEP) 1.2 Uyfif-5-Quyefsegh 0.3 Prugv-7-Bzwnvuzjh 0.7 Beta Globulins 0.8 Gamma Globulins 0.8 M-Yong Not observed PEP Note Comment SIGIFREDO Screen Negative c-ANCA Antibody <1:20 Proteinase 3 (PR3) Ab <0.2 Atypical p-ANCA <1:20 p-ANCA Antibody <1:20 Anti-Myeloperoxidase <0.2 Glomerular Base Memb Ab <0.2 Free [place] LC, Quant 44.0 H Free Lambda LC, Quant 34.0 H Free [place]/Lambda Ratio 1.29 Hepatitis A IgM Ab Negative Hep Bs Antigen Confirm. indicated Hep Bs Ag Confirmation Positive A Hep Bs Antibody Non reactive Hep B Core Total Ab Positive A Hep B Core IgM Ab Negative Hepatitis B Interp Comment Hepatitis C Ab (EIA) Reactive A Hepatitis C RNA Quant Hcv not detected HCV RNA PCR Test Info Comment PT 13.9 Seconds (9.0-12.9) H 04/25/24 04:18 APTT 30.0 Seconds (25.1-36.5) 04/25/24 04:18 Microbiology Microbiology: 04/21/24 04:30 Urine - Clean-Voided Midstream Urine Culture - Final <9,000 colonies/ml mixed bacterial skin contaminants 2 Days A&P - Vascular (1) JASMINA (acute kidney injury): Plan I did see and speak with the analytics associate today. Dr. Harris would like to hold off hemodialysis at this point in time. I did order vein mapping just in case the patient does not recover. I am worriedabout placing a tunneled catheter pablo patient who has IV drug abuse issues and history. Therefore Ihave a low threshold for proceeding to AV fistula creation in a patient such as this. However, we will hold off until further word from his analytics associate. Documented By: Chinedu Escalante MD 04/25/24 1010 Signed By: 04/25/[address] [place], [place] [id number] Progress note Author Jean Pierre Hassan [facility] Note Date/Time April 24, 2024 8:05pm [facility] [address] [place] [address] Hospitalist Progress Note Signed Patient: Ness Beaver MR#: [id number] 1230 : 1980 Acct:[id number] Age/Sex: 44 / M Adm Date: 5 Loc: 4 Room: [address] [place] [address] Type: ADM IN Attending Dr: Jean Pierre Hassan MD Copies to: ~ Date of Service: 04/24/2024 Subjective Subjective Narrative: Remains comfortable on methadone, discussed case with family at bedside. Exam Physical Exam Vital Signs: Temp Pulse Resp BP Pulse Ox O2 Del Method O2 Flow Rate 97.7 F 75 18 156/86 H 98 Room Air 2 04/24/24 08:00 04/24/24 08:00 04/24/24 08:00 04/24/24 08:00 04/24/24 08:00 04/24/24 08:00 04/22/24 13:07 Narrative: General: cooperative and comfortable Orientation: alert, awake and oriented x3 Head: normal to inspection Neck: normal visual inspection, dialysis catheter in R neck Cardio: no JVD, regular rate, regular rhythm Chest palpation & inspection: normal inspection of the chest Resp Effort & Inspection: normal respiratory effort Abd: soft, non-tender, non-distended Extremities: Warm well perfused, no edema Objective Lab Results 04/23/24 03:39 04/24/24 10:43 Microbiology Results Microbiology 04/21/24 04:30 Urine - Clean-Voided Midstream Urine Culture - Final <9,000 colonies/ml mixed bacterial skin contaminants 2 Days Meds Allergies and Active Meds Allergies No Known Allergies Allergy (Verified 11/29/23 08:52) Active Meds: Active Medications Generic Name Dose Route Start Last Admin Trade Name Freq PRN Reason Stop Dose Admin Acetaminophen 650 mg 04/20/24 17:07 04/21/24 14:53 Acetaminophen 325 Mg Tablet PO 04/20/25 17:06 650 mg Q4H PRN Administration Pain Scale 1 - 3 or fever Bisacodyl 10 mg 04/20/24 17:07 Bisacodyl [address] Table[address].Dr JUNIOR 04/20/25 17:06 DAILY PRN Constipation Docusate Sodium 100 mg 04/20/24 21:00 04/24/24 08:37 Docusate 100 Mg Capsule PO 04/20/25 20:59 100 mg BID SAGAR Administration Heparin Sodium (Porcine) 2,200 unit 04/20/24 15:58 04/22/24 10:30 Heparin 10,000 Unit/10 Ml Vial IV-PUSH 04/20/25 15:57 2,200 unit PRN PRN Administration Dialysis Heparin Sodium (Porcine) 5,000 unit 04/20/24 21:00 04/24/24 08:37 Heparin 5,000 Unit/Ml Vial SUBCUT 04/20/25 20:59 5,000 unit Q12HR SAGAR Administration Heparin Sodium (Porcine) 3,000 unit 04/22/24 08:23 04/22/24 10:30 Heparin 10,000 Unit/10 Ml Vial IV 04/20/25 19:25 3,000 unit PRN PRN Administration Dialysis Heparin Sodium (Porcine) 1,500 unit 04/22/24 08:23 04/22/24 10:31 Heparin 10,000 Unit/10 Ml Vial IV 04/20/25 19:25 1,500 unit PRN PRN Administration Dialysis Sodium Chloride 1,000 mls @ 0 mls/hr 04/20/24 17:00 04/22/24 10:32 0.9% Sodium Chloride 1,000 Ml MISCELLANE 04/20/25 16:59 Infused .Q0M PRN Infusion Dialysis As Directed Methadone HCl 220 mg 04/20/24 20:45 04/24/24 08:38 Methadone 10 Mg/Ml Oral Concentrate PO 220 mg DAILY SAGAR Administration Metoprolol Tartrate 5 mg 04/20/24 17:15 Metoprolol Tartrate 5 Mg/5 Ml Vial IV-PUSH 04/20/25 17:14 Q4H PRN Blood Pressure Nicotine 1 each 04/20/24 17:10 04/24/24 08:37 Nicotine Patch 14 Mg/24hr 1 Each Patch.Td24 TRANSDERML 05/03/24 09:01 1 each DAILY SAGAR Administration Nicotine Polacrilex 2 mg 04/20/24 17:07 Nicotine Polacrilex 2 Mg Gum BUCCAL 04/20/25 17:06 Q2HR PRN Nicotine Cravings Polyethylene Glycol 17 gm 04/20/24 21:00 04/24/24 08:38 Polyethylene Glycol 3350 17 Gm Powd.Pack PO 04/20/25 20:59 Not Given BID SAGAR Prochlorperazine Edisylate 5 mg 04/20/24 17:15 04/22/24 18:30 Prochlorperazine Edisylate 10 Mg/2 Ml Vial IV-PUSH 04/20/25 17:14 5 mg Q4H PRN Administration Nausea OR Vomiting Sevelamer Carbonate 800 mg 04/21/24 12:00 04/24/24 08:37 Sevelamer Carbonate 800 Mg Tablet PO 04/21/25 11:59 800 mg TID.WITH.MEALS SAGAR Administration Sodium Chloride 0 ml 04/20/24 17:00 04/22/24 10:29 Sodium Chloride 0.9 % 10 Ml Syringe IV-PUSH 04/20/25 16:59 40 ml PRN PRN Administration Flush Sodium Chloride 0 ml 04/20/24 17:07 04/20/24 19:29 Sodium Chloride 0.9 % 10 Ml Syringe IV-PUSH 04/20/25 17:06 60 ml PRN PRN Administration Flush A&P - Hospitalist Assessment/Plan (1) JASMINA (acute kidney injury): (2) Hyperkalemia: (3) Metabolic acidosis: (4) Anemia: (5) Vapes nicotine containing substance: Plan Plan: - continue hemodialysis per nephrology - Extensive work up ordered by nephrology for vasculitis, lupus, and other etiologies of kidney injury. - plan for bone marrow biopsy on 04/25/24 at 11 am -QTc < 500, continue home methadone dose - Nicotine patch and nicotine gum - Check labs daily. - DVT prophylaxis with heparin 5000 units subcutaneously every 12 hours. - PT/OT recommending discharge home Documented By: Jean Pierre Hassan MD 04/24/24 1106 Signed By: <Electronically signed by Jean Pierre Hassan MD> 04/24/242004 [facility] Work Phone: [phone]) 121-788402-24-2025 Progress note Author Sergio Harris [facility] Note Date/Time April 24, 2024 6:20pm [facility] [address] [place] [address] Nephrology Progress Note Signed Patient: Ness Beaver MR#: [id number] 1230 : 1980 Acct:[id number] Age/Sex: 44 / M Adm Date: 5 Loc: 4P Room: [address] [place] [address] Type: ADM IN Attending Dr: Jean Pierre Hassan MD Copies to: ~ Date of Service: 04/24/2024 Subjective Subjective Narrative: This is a 44-year male with a medical history of hepatitis B and C, polysubstance abuse was presented to the [facility] for nausea and vomiting. On evaluation emergency room patient was found to have a acute kidneyinjury with elevated serum creatinine 20 mg/dL and BUN 176 mg/dL. He was also found to have a hyperkalemia with serum potassium 6.7 mmol/L and metabolic acidosis serum bicarbonate 14 mmol/L. Patient was found to have anemia with a hemoglobin 12.2 g/dL. His CK was 742. Patient has a history of polysubstance abuse and reported to use of meth and cocaine in the past. He is also follows with the methadone clinic. Patient was treated for hyperkalemia with calcium gluconate, insulin plus D50 and Lokelma. Patient was started on a bicarbonate drip. He was given sodium bicarbonate 100 mEq IV x 1 dose and was transferred to [facility] [place] emergent [facility]. Interim history Patient presented with JASMINA with creatinine 20 mg/dL for unknown reason possibly related hepatitis or polysubstance abuse. Baseline creatinine was 0.86 mg/dL on October 2023. Last hemodialysis was on April 22. Urine output did increase slightly 0.4 mL/kg/h however creatinine still rising between dialysis 10.2 mg/dL. Patient has a JASMINA due to the unclear etiology. Workup for acute GN is pending. He is also scheduled to have a kidney biopsy on Wednesday. Exam Physical Exam Vital Signs: Temp Pulse Resp BP Pulse Ox O2 Del Method O2 Flow Rate 37.2 C 76 18 164/90 H 96 Room Air 2 04/24/24 12:04/24/24 16:04/24/24 16:04/24/24 16:04/24/24 16:04/24/24 16:04/22/24 13:07 Narrative: Constitutional: Appears comfortable and not in distress HEENT: No pallor or Jaundice Cardiovascular: RRR, normal S1-S2, no gallop or rub, No JVD Respiratory: Good bilateral air entry no wheezing or crackles Gastrointestinal: Soft, non tender, positive bowel sounds Extremities: No edema Skin: No rashes or bruises Musculoskeletal: No joints swellings or inflammation Neurology: Awake, alert, oriented ?3, No focal motor or sensory deficits Psych: Normal mood and affect Vascular access: Right IJ temporary hemodialysis catheter. It has poor blood flow during last admission. Objective Intake and Output I&O: Intake & Output 04/21/24 04/22/24 04/23/24 04/24/24 23:59 23:59 23:59 23:59 Intake Total 1140 / 1140 850 / 850 950 / 950 650 / 650 Output Total 1100 / 1100 1001 / 1001 600 / 600 700 / 700 Balance 40 / 40 -151 / -151 350 / 350 -50 / -50 Weight 70.7 kg 71.5 kg 73 kg 72.8 kg Meds and Allergies Meds: Active Medications Acetaminophen (Acetaminophen 325 Mg Tablet) 650 mg PO Q4H PRN PRN Reason: Pain Scale 1 - 3 or fever Stop: 04/20/25 17:06 Last Admin: 04/21/24 14:53 Dose: 650 mg Bisacodyl (Bisacodyl 5 Mg Tablet.Dr) 10 mg PO DAILY PRN PRN Reason: Constipation Stop: 04/20/25 17:06 Docusate Sodium (Docusate 100 Mg Capsule) 100 mg PO BID [facility] Stop: 04/20/25 20:59 Last Admin: 04/24/24 08:37 Dose: 100 mg Heparin Sodium (Porcine) (Heparin 10,000 Unit/10 Ml Vial) 2,200 unit IV-PUSH PRN PRN PRN Reason: Dialysis Stop: 04/20/25 15:57 Last Admin: 04/22/24 10:30 Dose: 2,200 unit Heparin Sodium (Porcine) (Heparin 5,000 Unit/Ml Vial) 5,000 unit SUBCUT Q12HR [facility] Stop: 04/20/25 20:59 Last Admin: 04/24/24 08:37 Dose: 5,000 unit Heparin Sodium (Porcine) (Heparin 10,000 Unit/10 Ml Vial) 3,000 unit IV PRN PRN PRN Reason: Dialysis Stop: 04/20/25 19:25 Last Admin: 04/22/24 10:30 Dose: 3,000 unit Heparin Sodium (Porcine) (Heparin 10,000 Unit/10 Ml Vial) 1,500 unit IV PRN PRN PRN Reason: Dialysis Stop: 04/20/25 19:25 Last Admin: 04/22/24 10:31 Dose: 1,500 unit Sodium Chloride (0.9% Sodium Chloride 1,000 Ml) 1,000 mls @ 0 mls/hr MISCELLANE.Q0M PRN PRN Reason: Dialysis Stop: 04/20/25 16:59 Last Infusion: 04/22/24 10:32 Dose: Infused Methadone HCl (Methadone 10 Mg/Ml Oral Concentrate) 220 mg PO DAILY [facility] Last Admin: 04/24/24 08:38 Dose: 220 mg Metoprolol Tartrate (Metoprolol Tartrate 5 Mg/5 Ml Vial) 5 mg IV-PUSH Q4H PRN PRN Reason: Blood Pressure Stop: 04/20/25 17:14 Last Admin: 04/24/24 17:12 Dose: 5 mg Nicotine (Nicotine Patch 14 Mg/24hr 1 Each Patch.Td24) 1 each TRANSDERML DAILY [facility] Stop: 05/03/24 09:01 Last Admin: 04/24/24 08:37 Dose: 1 each Nicotine Polacrilex (Nicotine Polacrilex 2 Mg Gum) 2 mg BUCCAL Q2HR PRN PRN Reason: Nicotine Cravings Stop: 04/20/25 17:06 Polyethylene Glycol (Polyethylene Glycol 3350 17 Gm Powd.Pack) 17 gm PO BID [facility] Stop: 04/20/25 20:59 Last Admin: 04/24/24 08:38 Dose: Not Given Prochlorperazine Edisylate (Prochlorperazine Edisylate 10 Mg/2 Ml Vial) 5 mg IV- PUSH Q4H PRN PRN Reason: Nausea OR Vomiting Stop: 04/20/25 17:14 Last Admin: 04/22/24 18:30 Dose: 5 mg Sevelamer Carbonate (Sevelamer Carbonate 800 Mg Tablet) 1,600 mg PO TID.WITH.MEALS [facility] Stop: 04/24/25 16:59 Last Admin: 04/24/24 16:20 Dose: 1,600 mg Sodium Chloride (Sodium Chloride 0.9 % 10 Ml Syringe) 0 ml IV-PUSH PRN PRN PRN Reason: Flush Stop: 04/20/25 16:59 Last Admin: 04/22/24 10:29 Dose: 40 ml Sodium Chloride (Sodium Chloride 0.9 % 10 Ml Syringe) 0 ml IV-PUSH PRN PRN PRN Reason: Flush Stop: 04/20/25 17:06 Last Admin: 04/20/24 19:29 Dose: 60 ml Allergies No Known Allergies Allergy (Verified 11/29/23 08:52) Results - Nephrology Labs 04/23/24 03:39 04/24/24 10:43 Labs: 04/24/24 10:43 BUN 51 H Creatinine 10.21 H D Phosphorus 6.7 H Albumin 3.6 Radiology Impressions Impressions - last 24 hours: Any impression(s) listed above is documentation that was entered by the reading physician into a diagnostic report(s) for Ness Vaughan Saranya. I have reviewedthe report(s) and am incorporating any findings in the treatment plan of this patient where applicable. A&P - Nephrology Assessment/Plan (1) JASMINA (acute kidney injury): Assessment/Problem Details: Patient is a JASMINA due to unclear etiology. Differential diagnoses are RPGN or ATN. Patient has no evidence of obstructive uropathy on CAT scan. Patient has history fibrositis BNC. He had polysubstance abuse as well. (2) Hyperkalemia: Assessment/Problem Details: He had hyperkalemia due to the JASMINA and metabolic acidosis. His hyperkalemia wascorrected with dialysis. (3) Metabolic acidosis: Assessment/Problem Details: He had metabolic acidosis likely due to the JASMINA. His metabolic acidosis corrected with dialysis. (4) Hepatitis C: Assessment/Problem Details: Patient has a known history of hepatitis C. (5) Anemia: Assessment/Problem Details: He has a anemia due to the unclear etiology. He has a normal haptoglobin with mildly elevated LDH and no evidence of schistocytes on peripheral smear so possibility of hemolytic anemia is low. He has normal iron stores B12 and folate level. Plan * Patient most likely will need long-term dialysis given his JASMINA. He has profound global tachycardia admission. Creatinine still 10 mg/dL. Will consult vascular surgery for tunneled hemodialysis catheter and will arrange hemodialysis tomorrow. * Increase sevelamer to 1600 mg 3 times daily for hyperphosphatemia. * Follow-up on the workup for RPGN including ANCA, serum cryoglobulin, anti-GBM, lupus and paraproteinemia. * Kidney biopsy scheduled for Wednesday. * Monitor daily intake, output and renal panel and adjust dialysis orders and medications as indicated. Documented By: Sergio Harris MD 04/24/241811 Signed By: <Electronically signed by MD Sergio Harris> 04/24/24 1820 [facility] Work Phone: 1(460) 209-314802-24-2025 [place] [address] Hospitalist Progress Note Signed Patient: Ness Beaver MR#: [id number] 1230 : 1980 Acct:[id number] Age/Sex: 44 / M Adm Date: 5 Loc: Room: [address] [place] [address] Type: ADM IN Attending Dr: Jean Pierre Hassan MD Copies to: ~ Date of Service: 04/24/2024 Subjective Subjective Narrative: Remains comfortable on methadone, discussed case with family at bedside. Exam Physical Exam Vital Signs: Temp Pulse Resp BP Pulse Ox O2 Del Method O2 Flow Rate 97.7 F 75 18 156/86 H 98 Room Air 2 04/24/24 08:00 04/24/24 08:00 04/24/24 08:00 04/24/24 08:00 04/24/24 08:00 04/24/24 08:00 04/22/24 13:07 Narrative: General: cooperative and comfortable Orientation: alert, awake and oriented x3 Head: normal to inspection Neck: normal visual inspection, dialysis catheter in R neck Cardio: no JVD, regular rate, regular rhythm Chest palpation & inspection: normal inspection of the chest Resp Effort & Inspection: normal respiratory effort Abd: soft, non-tender, non-distended Extremities: Warm well perfused, no edema Objective Lab Results 04/23/24 03:39 04/24/24 10:43 Microbiology Results Microbiology 04/21/24 04:30 Urine - Clean-Voided Midstream Urine Culture - Final <9,000 colonies/ml mixed bacterial skin contaminants 2 Days Meds Allergies and Active Meds Allergies No Known Allergies Allergy (Verified 11/29/23 08:52) Active Meds: Active Medications Generic Name Dose Route Start Last Admin Trade Name Freq PRN Reason Stop Dose Admin Acetaminophen 650 mg 04/20/24 17:07 04/21/24 14:53 Acetaminophen 325 Mg Tablet PO 04/20/25 17:06 650 mg Q4H PRN Administration Pain Scale 1 - 3 or fever Bisacodyl 10 mg 04/20/24 17:07 Bisacodyl 5 Mg Tablet.Dr PO 04/20/25 17:06 DAILY PRN Constipation Docusate Sodium 100 mg 04/20/24 21:00 04/24/24 08:37 Docusate 100 Mg Capsule PO 04/20/25 20:59 100 mg BID SAGAR Administration Heparin Sodium (Porcine) 2,200 unit 04/20/24 15:58 04/22/24 10:30 Heparin 10,000 Unit/10 Ml Vial IV-PUSH 04/20/25 15:57 2,200 unit PRN PRN Administration Dialysis Heparin Sodium (Porcine) 5,000 unit 04/20/24 21:00 04/24/24 08:37 Heparin 5,000 Unit/Ml Vial SUBCUT 04/20/25 20:59 5,000 unit Q12HR SAGAR Administration Heparin Sodium (Porcine) 3,000 unit 04/22/24 08:23 04/22/24 10:30 Heparin 10,000 Unit/10 Ml Vial IV 04/20/25 19:25 3,000 unit PRN PRN Administration Dialysis Heparin Sodium (Porcine) 1,500 unit 04/22/24 08:23 04/22/24 10:31 Heparin 10,000 Unit/10 Ml Vial IV 04/20/25 19:25 1,500 unit PRN PRN Administration Dialysis Sodium Chloride 1,000 mls @ 0 mls/hr 04/20/24 17:00 04/22/24 10:32 0.9% Sodium Chloride 1,000 Ml MISCELLANE 04/20/25 16:59 Infused .Q0M PRN Infusion Dialysis As Directed Methadone HCl 220 mg 04/20/24 20:45 04/24/24 08:38 Methadone 10 Mg/Ml Oral Concentrate PO 220 mg DAILY SAGAR Administration Metoprolol Tartrate 5 mg 04/20/24 17:15 Metoprolol Tartrate 5 Mg/5 Ml Vial IV-PUSH 04/20/25 17:14 Q4H PRN Blood Pressure Nicotine 1 each 04/20/24 17:10 04/24/24 08:37 Nicotine Patch 14 Mg/24hr 1 Each Patch.Td24 TRANSDERML 05/03/24 09:01 1 each DAILY SAGAR Administration Nicotine Polacrilex 2 mg 04/20/24 17:07 Nicotine Polacrilex 2 Mg Gum BUCCAL 04/20/25 17:06 Q2HR PRN Nicotine Cravings Polyethylene Glycol 17 gm 04/20/24 21:00 04/24/24 08:38 Polyethylene Glycol 3350 17 Gm Powd.Pack PO 04/20/25 20:59 Not Given BID SAGAR Prochlorperazine Edisylate 5 mg 04/20/24 17:15 04/22/24 18:30 Prochlorperazine Edisylate 10 Mg/2 Ml Vial IV-PUSH 04/20/25 17:14 5 mg Q4H PRN Administration Nausea OR Vomiting Sevelamer Carbonate 800 mg 04/21/24 12:00 04/24/24 08:37 Sevelamer Carbonate 800 Mg Tablet PO 04/21/25 11:59 800 mg TID.WITH.MEALS SAGAR Administration Sodium Chloride 0 ml 04/20/24 17:00 04/22/24 10:29 Sodium Chloride 0.9 % 10 Ml Syringe IV-PUSH 04/20/25 16:59 40 ml PRN PRN Administration Flush Sodium Chloride 0 ml 04/20/24 17:07 04/20/24 19:29 Sodium Chloride 0.9 % 10 Ml Syringe IV-PUSH 04/20/25 17:06 60 ml PRN PRN Administration Flush A&P - Hospitalist Assessment/Plan (1) JASMINA (acute kidney injury): (2) Hyperkalemia: (3) Metabolic acidosis: (4) Anemia: (5) Vapes nicotine containing substance: Plan Plan: - continue hemodialysis per nephrology - Extensive work up ordered by nephrology for vasculitis, lupus, and other etiologies of kidney injury. - plan for bone marrow biopsy on 04/25/24 at 11 am -QTc < 500, continue home methadone dose - Nicotine patch and nicotine gum - Check labs daily. - DVT prophylaxis with heparin 5000 units subcutaneously every 12 hours. - PT/OT recommending discharge home Documented By: Jean Pierre Hassan MD 04/24/24 1106 Signed By: 04/24/242004 [facility]02-24-2025 [place] [address] Nephrology Progress Note Signed Patient: Ness Beaver MR#: [id number] 1230 : 1980 Acct:[id number] Age/Sex: 44 / M Adm Date: 5 Loc: 4 Room: [address] [place] [address] Type: ADM IN Attending Dr: Jean Pierre Hassan MD Copies to: ~ Date of Service: 04/24/2024 Subjective Subjective Narrative: This is a 44-year male with a medical history of hepatitis B and C, polysubstance abuse was presented to the [facility] for nausea and vomiting. On evaluation emergency room patient was found to have a acute kidneyinjury with elevated serum creatinine 20 mg/dL and BUN 176 mg/dL. He was also found to have a hyperkalemia with serum potassium 6.7 mmol/L and metabolic acidosis serum bicarbonate 14 mmol/L. Patient was found to have anemia with a hemoglobin 12.2 g/dL. His CK was 742. Patient has a history of polysubstance abuse and reported to use of meth and cocaine in the past. He is also follows with the methadone clinic. Patient was treated for hyperkalemia with calcium gluconate, insulin plus D50 and Lokelma. Patient was started on a bicarbonate drip. He was given sodium [id number] mEq IV x 1 dose and was transferred to [facility] [place]. Interim history Patient presented with JASMINA with creatinine 20 mg/dL for unknown reason possibly related hepatitis or polysubstance abuse. Baseline creatinine was 0.86 mg/dL on October 2023. Last hemodialysis was on April 22. Urine output did increase slightly 0.4 mL/kg/h however creatinine still rising between dialysis 10.2 mg/dL. Patient has a JASMINA due to the unclear etiology. Workup for acute GN is pending. He is also scheduledto have a kidney biopsy on Wednesday. Exam Physical Exam Vital Signs: Temp Pulse Resp BP Pulse Ox O2 Del Method O2 Flow Rate 37.2 C 76 18 164/90 H 96 Room Air 2 04/24/24 12:00 04/24/24 16:04/24/24 16:04/24/24 16:04/24/24 16:04/24/24 16:04/22/24 13:07 Narrative: Constitutional: Appears comfortable and not in distress HEENT: No pallor or Jaundice Cardiovascular: RRR, normal S1-S2, no gallop or rub, No JVD Respiratory: Good bilateral air entry no wheezing or crackles Gastrointestinal: Soft, non tender, positive bowel sounds Extremities: No edema Skin: No rashes or bruises Musculoskeletal: No joints swellings or inflammation Neurology: Awake, alert, oriented ?3, No focal motor or sensory deficits Psych: Normal mood and affect Vascular access: Right IJ temporary hemodialysis catheter. It has poor blood flow during last admission. Objective Intake and Output I&O: Intake & Output 04/21/24 04/22/24 04/23/24 04/24/24 23:59 23:59 23:59 23:59 Intake Total 1140 / 1140 850 / 850 950 / 950 650 / 650 Output Total 1100 / 1100 1001 / 1001 600 / 600 700 / 700 Balance 40 / 40 -151 / -151 350 / 350 -50 / -50 Weight 70.7 kg 71.5 kg 73 kg 72.8 kg Meds and Allergies Meds: Active Medications Acetaminophen (Acetaminophen 325 Mg Tablet) 650 mg PO Q4H PRN PRN Reason: Pain Scale 1 - 3 or fever Stop: 04/20/25 17:06 Last Admin: 04/21/24 14:53 Dose: 650 mg Bisacodyl (Bisacodyl 5 Mg Tablet.Dr) 10 mg PO DAILY PRN PRN Reason: Constipation Stop: 04/20/25 17:06 Docusate Sodium (Docusate 100 Mg Capsule) 100 mg PO BID [facility] Stop: 04/20/25 20:59 Last Admin: 04/24/24 08:37 Dose: 100 mg Heparin Sodium (Porcine) (Heparin 10,000 Unit/10 Ml Vial) 2,200 unit IV-PUSH PRN PRN PRN Reason: Dialysis Stop: 04/20/25 15:57 Last Admin: 04/22/24 10:30 Dose: 2,200 unit Heparin Sodium (Porcine) (Heparin 5,000 Unit/Ml Vial) 5,000 unit SUBCUT Q12HR [facility] Stop: 04/20/25 20:59 Last Admin: 04/24/24 08:37 Dose: 5,000 unit Heparin Sodium (Porcine) (Heparin 10,000 Unit/10 Ml Vial) 3,000 unit IV PRN PRN PRN Reason: Dialysis Stop: 04/20/25 19:25 Last Admin: 04/22/24 10:30 Dose: 3,000 unit Heparin Sodium (Porcine) (Heparin 10,000 Unit/10 Ml Vial) 1,500 unit IV PRN PRN PRN Reason: Dialysis Stop: 04/20/25 19:25 Last Admin: 04/22/24 10:31 Dose: 1,500 unit Sodium Chloride (0.9% Sodium Chloride 1,000 Ml) 1,000 mls @ 0 mls/hr MISCELLANE.Q0M PRN PRN Reason: Dialysis Stop: 04/20/25 16:59 Last Infusion: 04/22/24 10:32 Dose: Infused Methadone HCl (Methadone 10 Mg/Ml Oral Concentrate) 220 mg PO DAILY [facility] Last Admin: 04/24/24 08:38 Dose: 220 mg Metoprolol Tartrate (Metoprolol Tartrate 5 Mg/5 Ml Vial) 5 mg IV-PUSH Q4H PRN PRN Reason: Blood Pressure Stop: 04/20/25 17:14 Last Admin: 04/24/24 17:12 Dose: 5 mg Nicotine (Nicotine Patch 14 Mg/24hr 1 Each Patch.Td24) 1 each TRANSDERML DAILY [facility] Stop: 05/03/24 09:01 Last Admin: 04/24/24 08:37 Dose: 1 each Nicotine Polacrilex (Nicotine Polacrilex 2 Mg Gum) 2 mg BUCCAL Q2HR PRN PRN Reason: Nicotine Cravings Stop: 04/20/25 17:06 Polyethylene Glycol (Polyethylene Glycol 3350 17 Gm Powd.Pack) 17 gm PO BID [facility] Stop: 04/20/25 20:59 Last Admin: 04/24/24 08:38 Dose: Not Given Prochlorperazine Edisylate (Prochlorperazine Edisylate 10 Mg/2 Ml Vial) 5 mg IV- PUSH Q4H PRN PRN Reason: Nausea OR Vomiting Stop: 04/20/25 17:14 Last Admin: 04/22/24 18:30 Dose: 5 mg Sevelamer Carbonate (Sevelamer Carbonate 800 Mg Tablet) 1,600 mg PO TID.WITH.MEALS [facility] Stop: 04/24/25 16:59 Last Admin: 04/24/24 16:20 Dose: 1,600 mg Sodium Chloride (Sodium Chloride 0.9 % 10 Ml Syringe) 0 ml IV-PUSH PRN PRN PRN Reason: Flush Stop: 04/20/25 16:59 Last Admin: 04/22/24 10:29 Dose: 40 ml Sodium Chloride (Sodium Chloride 0.9 % 10 Ml Syringe) 0 ml IV-PUSH PRN PRN PRN Reason: Flush Stop: 04/20/25 17:06 Last Admin: 04/20/24 19:29 Dose: 60 ml Allergies No Known Allergies Allergy (Verified 11/29/23 08:52) Results - Nephrology Labs 04/23/24 03:39 04/24/24 10:43 Labs: 04/24/24 10:43 BUN 51 H Creatinine 10.21 H D Phosphorus 6.7 H Albumin 3.6 Radiology Impressions Impressions - last 24 hours: Any impression(s) listed above is documentation that was entered by the reading physician into a diagnostic report(s) for Ness Beaver. I have reviewedthe report(s) and am incorporating any findings in the treatment plan of this patient where applicable. A&P - Nephrology Assessment/Plan (1) JASMINA (acute kidney injury): Assessment/Problem Details: Patient is a JASMINA due to unclear etiology. Differential diagnoses are RPGN or ATN. Patient has no evidence of obstructive uropathy on CAT scan. Patient has history fibrositis BNC. He had polysubstanceabuse as well. (2) Hyperkalemia: Assessment/Problem Details: He had hyperkalemia due to the JASMINA and metabolic acidosis. His hyperkalemia wascorrected with dialysis. (3) Metabolic acidosis: Assessment/Problem Details: He had metabolic acidosis likely due to the JASMINA. His metabolic acidosis corrected with dialysis. (4) Hepatitis C: Assessment/Problem Details: Patient has a known history of hepatitis C. (5) Anemia: Assessment/Problem Details: He has a anemia due to the unclear etiology. He has a normal haptoglobin with mildly elevated LDH and no evidence of schistocytes on peripheral smear so possibility of hemolytic anemia is low. He hasnormal iron stores B12 and folate level. Plan * Patient most likely will need long-term dialysis given his JASMINA. He has profound global tachycardia admission. Creatinine still 10 mg/dL. Will consult vascular surgery for tunneled hemodialysis catheter and will arrange hemodialysis tomorrow. * Increase sevelamer to 1600 mg 3 times daily for hyperphosphatemia. * Follow-up on the workup for RPGN including ANCA, serum cryoglobulin, anti-GBM, lupus and paraproteinemia. * Kidney biopsy scheduled for Wednesday. * Monitor daily intake, output and renal panel and adjust dialysis orders and medications as indicated. Documented By: Sergio Harris MD 04/24/241811 Signed By: 04/24/241819 [facility]02-23-2025 Progress note Author Jean Pierre Hassan [facility] Note Date/Time April 23, 2024 3:55pm [facility] [address] [place] [address] Hospitalist Progress Note Signed Patient: Ness Beaver MR#: [id number] 1230 : 1980 Acct:[id number] Age/Sex: 44 / M Adm Date: 5 Loc: Room: [address] [place] [address] Type: ADM IN Attending Dr: Jean Pierre Hassan MD Copies to: ~ Date of Service: 04/23/2024 Subjective Subjective Narrative: In bed, comfortable, no complaints at this time, states has been voiding. Tolerating methadone without issue. Exam Physical Exam Vital Signs: Temp Pulse Resp BP Pulse Ox O2 Del Method O2 Flow Rate 98.9 F 86 20 160/87 H 97 Room Air 2 04/23/24 04:00 04/23/24 04:00 04/23/24 04:00 04/23/24 04:00 04/23/24 04:00 04/23/24 08:00 04/22/24 13:07 Narrative: General: cooperative and comfortable Orientation: alert, awake and oriented x3 Head: normal to inspection Neck: normal visual inspection, dialysis catheter in R neck Cardio: no JVD, regular rate, regular rhythm Chest palpation & inspection: normal inspection of the chest Resp Effort & Inspection: normal respiratory effort Abd: soft, non-tender, non-distended Extremities: Warm well perfused, no edema Objective Lab Results 04/23/24 03:39 04/23/24 03:39 Microbiology Results Microbiology 04/21/24 04:30 Urine - Clean-Voided Midstream Urine Culture - Final <9,000 colonies/ml mixed bacterial skin contaminants 2 Days Meds Allergies and Active Meds Allergies No Known Allergies Allergy (Verified 11/29/23 08:52) Active Meds: Active Medications Generic Name Dose Route Start Last Admin Trade Name Freq PRN Reason Stop Dose Admin Acetaminophen 650 mg 04/20/24 17:07 04/21/24 14:53 Acetaminophen 325 Mg Tablet PO 04/20/25 17:06 650 mg Q4H PRN Administration Pain Scale 1 - 3 or fever Bisacodyl 10 mg 04/20/24 17:07 Bisacodyl 5 Mg Tablet. PO 04/20/25 17:06 DAILY PRN Constipation Docusate Sodium 100 mg 04/20/24 21:00 04/23/24 09:53 Docusate 100 Mg Capsule PO 04/20/25 20:59 100 mg BID [facility] Administration Heparin Sodium (Porcine) 2,200 unit 04/20/24 15:58 04/22/24 10:30 Heparin 10,000 Unit/10 Ml Vial IV-PUSH 04/20/25 15:57 2,200 unit PRN PRN Administration Dialysis Heparin Sodium (Porcine) 5,000 unit 04/20/24 21:00 04/23/24 09:53 Heparin 5,000 Unit/Ml Vial SUBCUT 04/20/25 20:59 5,000 unit Q12HR [facility] Administration Heparin Sodium (Porcine) 3,000 unit 04/22/24 08:23 04/22/24 10:30 Heparin 10,000 Unit/10 Ml Vial IV 04/20/25 19:25 3,000 unit PRN PRN Administration Dialysis Heparin Sodium (Porcine) 1,500 unit 04/22/24 08:23 04/22/24 10:31 Heparin 10,000 Unit/10 Ml Vial IV 04/20/25 19:25 1,500 unit PRN PRN Administration Dialysis Sodium Chloride 1,000 mls @ 0 mls/hr 04/20/24 17:00 04/22/24 10:32 0.9% Sodium Chloride 1,000 Ml MISCELLANE 04/20/25 16:59 Infused .Q0M PRN Infusion Dialysis As Directed Methadone HCl 220 mg 04/20/24 20:45 04/23/24 09:53 Methadone 10 Mg/Ml Oral Concentrate PO 220 mg DAILY [facility] Administration Metoprolol Tartrate 5 mg 04/20/24 17:15 Metoprolol Tartrate 5 Mg/5 Ml Vial IV-PUSH 04/20/25 17:14 Q4H PRN Blood Pressure Nicotine 1 each 04/20/24 17:10 04/23/24 09:54 Nicotine Patch 14 Mg/24hr 1 Each Patch.Td24 TRANSDERML 05/03/24 09:01 1 each DAILY [facility] Administration Nicotine Polacrilex 2 mg 04/20/24 17:07 Nicotine Polacrilex 2 Mg Gum BUCCAL 04/20/25 17:06 Q2HR PRN Nicotine Cravings Polyethylene Glycol 17 gm 04/20/24 21:00 04/23/24 09:55 Polyethylene Glycol 3350 17 Gm Powd.Pack PO 04/20/25 20:59 Not Given BID [facility] Prochlorperazine Edisylate 5 mg 04/20/24 17:15 04/22/24 18:30 Prochlorperazine Edisylate 10 Mg/2 Ml Vial IV-PUSH 04/20/25 17:14 5 mg Q4H PRN Administration Nausea OR Vomiting Sevelamer Carbonate 800 mg 04/21/24 12:00 04/23/24 09:53 Sevelamer Carbonate 800 Mg Tablet PO 04/21/25 11:59 800 mg TID.WITH.MEALS [facility] Administration Sodium Chloride 0 ml 04/20/24 17:00 04/22/24 10:29 Sodium Chloride 0.9 % 10 Ml Syringe IV-PUSH 04/20/25 16:59 40 ml PRN PRN Administration Flush Sodium Chloride 0 ml 04/20/24 17:07 04/20/24 19:29 Sodium Chloride 0.9 % 10 Ml Syringe IV-PUSH 04/20/25 17:06 60 ml PRN PRN Administration Flush A&P - Hospitalist Assessment/Plan (1) JASMINA (acute kidney injury): (2) Hyperkalemia: (3) Metabolic acidosis: (4) Anemia: (5) Vapes nicotine containing substance: Plan Plan: - continue hemodialysis per nephrology - Extensive work up ordered by nephrology for vasculitis, lupus, and other etiologies of kidney injury. - plan for bone marrow biopsy on Wednesday at 11 am -QTc < 500, continue home methadone dose - Nicotine patch and nicotine gum - Check labs daily. - DVT prophylaxis with heparin 5000 units subcutaneously every 12 hours. - PT/OT recommending discharge home Documented By: Jean Pierre Hassan MD 04/23/24 1042 Signed By: <Electronically signed by Jean Pierre Hassan MD> 04/23/24 7640 [facility] Work Phone: 1(369) 932-282702-23-2025 [place] [address] Hospitalist Progress Note Signed Patient: Ness Beaver MR#: [id number] 1230 : 1980 Acct:[id number] Age/Sex: 44 / M Adm Date: 5 Loc: Room: [address] [place] [address] Type: ADM IN Attending Dr: Jean Pierre Hassan MD Copies to: ~ Date of Service: 04/23/2024 Subjective Subjective Narrative: In bed, comfortable, no complaints at this time, states has been voiding. Tolerating methadone without issue. Exam Physical Exam Vital Signs: Temp Pulse Resp BP Pulse Ox O2 Del Method O2 Flow Rate 98.9 F 86 20 160/87 H 97 Room Air 2 04/23/24 04:00 04/23/24 04:00 04/23/24 04:00 04/23/24 04:00 04/23/24 04:00 04/23/24 08:00 04/22/24 13:07 Narrative: General: cooperative and comfortable Orientation: alert, awake and oriented x3 Head: normal to inspection Neck: normal visual inspection, dialysis catheter in R neck Cardio: no JVD, regular rate, regular rhythm Chest palpation & inspection: normal inspection of the chest Resp Effort & Inspection: normal respiratory effort Abd: soft, non-tender, non-distended Extremities: Warm well perfused, no edema Objective Lab Results 04/23/24 03:39 04/23/24 03:39 Microbiology Results Microbiology 04/21/24 04:30 Urine - Clean-Voided Midstream Urine Culture - Final <9,000 colonies/ml mixed bacterial skin contaminants 2 Days Meds Allergies and Active Meds Allergies No Known Allergies Allergy (Verified 11/29/23 08:52) Active Meds: Active Medications Generic Name Dose Route Start Last Admin Trade Name Freq PRN Reason Stop Dose Admin Acetaminophen 650 mg 04/20/24 17:07 04/21/24 14:53 Acetaminophen 325 Mg Tablet PO 04/20/25 17:06 650 mg Q4H PRN Administration Pain Scale 1 - 3 or fever Bisacodyl 10 mg 04/20/24 17:07 Bisacodyl 5 Mg Tablet. PO 04/20/25 17:06 DAILY PRN Constipation Docusate Sodium 100 mg 04/20/24 21:00 04/23/24 09:53 Docusate 100 Mg Capsule PO 04/20/25 20:59 100 mg BID [facility] Administration Heparin Sodium (Porcine) 2,200 unit 04/20/24 15:58 04/22/24 10:30 Heparin 10,000 Unit/10 Ml Vial IV-PUSH 04/20/25 15:57 2,200 unit PRN PRN Administration Dialysis Heparin Sodium (Porcine) 5,000 unit 04/20/24 21:00 04/23/24 09:53 Heparin 5,000 Unit/Ml Vial SUBCUT 04/20/25 20:59 5,000 unit Q12HR [facility] Administration Heparin Sodium (Porcine) 3,000 unit 04/22/24 08:23 04/22/24 10:30 Heparin 10,000 Unit/10 Ml Vial IV 04/20/25 19:25 3,000 unit PRN PRN Administration Dialysis Heparin Sodium (Porcine) 1,500 unit 04/22/24 08:23 04/22/24 10:31 Heparin 10,000 Unit/10 Ml Vial IV 04/20/25 19:25 1,500 unit PRN PRN Administration Dialysis Sodium Chloride 1,000 mls @ 0 mls/hr 04/20/24 17:00 04/22/24 10:32 0.9% Sodium Chloride 1,000 Ml MISCELLANE 04/20/25 16:59 Infused .Q0M PRN Infusion Dialysis As Directed Methadone HCl 220 mg 04/20/24 20:45 04/23/24 09:53 Methadone 10 Mg/Ml Oral Concentrate PO 220 mg DAILY [facility] Administration Metoprolol Tartrate 5 mg 04/20/24 17:15 Metoprolol Tartrate 5 Mg/5 Ml Vial IV-PUSH 04/20/25 17:14 Q4H PRN Blood Pressure Nicotine 1 each 04/20/24 17:10 04/23/24 09:54 Nicotine Patch 14 Mg/24hr 1 Each Patch.Td24 TRANSDERML 05/03/24 09:01 1 each DAILY [facility] Administration Nicotine Polacrilex 2 mg 04/20/24 17:07 Nicotine Polacrilex 2 Mg Gum BUCCAL 04/20/25 17:06 Q2HR PRN Nicotine Cravings Polyethylene Glycol 17 gm 04/20/24 21:00 04/23/24 09:55 Polyethylene Glycol 3350 17 Gm Powd.Pack PO 04/20/25 20:59 Not Given BID [facility] Prochlorperazine Edisylate 5 mg 04/20/24 17:15 04/22/24 18:30 Prochlorperazine Edisylate 10 Mg/2 Ml Vial IV-PUSH 04/20/25 17:14 5 mg Q4H PRN Administration Nausea OR Vomiting Sevelamer Carbonate 800 mg 04/21/24 12:00 04/23/24 09:53 Sevelamer Carbonate 800 Mg Tablet PO 04/21/25 11:59 800 mg TID.WITH.MEALS [facility] Administration Sodium Chloride 0 ml 04/20/24 17:00 04/22/24 10:29 Sodium Chloride 0.9 % 10 Ml Syringe IV-PUSH 04/20/25 16:59 40 ml PRN PRN Administration Flush Sodium Chloride 0 ml 04/20/24 17:07 04/20/24 19:29 Sodium Chloride 0.9 % 10 Ml Syringe IV-PUSH 04/20/25 17:06 60 ml PRN PRN Administration Flush A&P - Hospitalist Assessment/Plan (1) JASMINA (acute kidney injury): (2) Hyperkalemia: (3) Metabolic acidosis: (4) Anemia: (5) Vapes nicotine containing substance: Plan Plan: - continue hemodialysis per nephrology - Extensive work up ordered by nephrology for vasculitis, lupus, and other etiologies of kidney injury. - plan for bone marrow biopsy on Wednesday at 11 am -QTc < 500, continue home methadone dose - Nicotine patch and nicotine gum - Check labs daily. - DVT prophylaxis with heparin 5000 units subcutaneously every 12 hours. - PT/OT recommending discharge home Documented By: Jean Pierre Hassan MD 04/23/24 1042 Signed By: 04/23/24 1555 [facility]02-23-2025 Progress note Author Ben Bravo [facility] Note Date/Time April 23, 2024 12:02pm [facility] [address] [place], [place] [id number] Nephrology Progress Note Signed Patient: Ness Beaver MR#: [id number] 1230 : 1980 Acct:[id number] Age/Sex: 44 / M Adm Date: 5 Loc: 4P Room: 3K2798-3 Type: ADM IN Attending Dr: Jean Pierre Hassan MD Copies to: ~ Date of Service: 04/23/2024 Subjective Subjective Narrative: This is a 44-year male with a medical history of hepatitis B and C, polysubstance abuse was presented to the [facility] for nausea and vomiting. On evaluation emergency room patient was found to have a acute kidneyinjury with elevated serum creatinine 20 mg/dL and BUN 176 mg/dL. He was also found to have a hyperkalemia with serum potassium 6.7 mmol/L and metabolic acidosis serum bicarbonate 14 mmol/L. Patient was found to have anemia with a hemoglobin 12.2 g/dL. His CK was 742. Patient has a history of polysubstance abuse and reported to use of meth and cocaine in the past. He is also follows with the methadone clinic. Patient was treated for hyperkalemia with calcium gluconate, insulin plus D50 and Lokelma. Patient was started on a bicarbonate drip. I was consulted by the [place] ER physician for emergent need of dialysis. I recommended that patient should be given sodium bicarbonate 100 mEqIV x 1 dose and also needs to be transferred for emergent dialysis at the [facility]. Patient will need a further workup includingkidney biopsy. Interim history Patient was seen and examined at bedside during hemodialysis. He is feeling better denies any chest pain palpitation cough nausea vomit diarrhea shortness of breath. Patient has a JASMINA due to the unclear etiology. Workup has been ordered and pending. He is also scheduled to have a kidney biopsy on Wednesday. Patient was initiated on hemodialysis on the day of admission and has received 3session of dialysis and tolerated well. His last hemodialysis was on 04/22/2024. Exam Physical Exam Vital Signs: Temp Pulse Resp BP Pulse Ox O2 Del Method O2 Flow Rate 99.2 F H 75 18 136/81 97 Room Air 2 04/23/24 11:04/23/24 11:04/23/24 11:04/23/24 11:04/23/24 11:04/23/24 11:04/22/24 13:07 Narrative: General: Appears comfortable and not in distress Heart: S1-S2, no rub Lung: Bilateral air entry, no wheezing or crackles Abdomen: Soft, positive bowel sounds Extremities: No edema, no cyanosis Head: Atraumatic, normocephalic Ear: No gross hearing Deficit or external ear redness Eyes: No pallor or redness Neck: No JVD or visible mass Skin: No rashes , warm to touch [employer]: Awake,Alert, following simple command Musculoskeletal: No swelling or limitation of movement of the large joints Psychiatric: Cooperative, normal mood and affect Objective Intake and Output I&O: Intake & Output 04/20/24 04/21/24 04/22/24 04/23/24 23:59 23:59 23:59 23:59 Intake Total 1500 / 1500 1140 / 1140 850 / 850 150 / 150 Output Total 852 / 852 1100 / 1100 1001 / 1001 600 / 600 Balance 648 / 648 40 / 40 -151 / -151 -450 / -450 Weight 69.6 kg 70.7 kg 71.5 kg 73 kg Meds and Allergies Meds: Active Medications Acetaminophen (Acetaminophen 325 Mg Tablet) 650 mg PO Q4H PRN PRN Reason: Pain Scale 1 - 3 or fever Stop: 04/20/25 17:06 Last Admin: 04/21/24 14:53 Dose: 650 mg Bisacodyl (Bisacodyl 5 Mg Tablet.Dr) 10 mg PO DAILY PRN PRN Reason: Constipation Stop: 04/20/25 17:06 Docusate Sodium (Docusate 100 Mg Capsule) 100 mg PO BID [facility] Stop: 04/20/25 20:59 Last Admin: 04/23/24 09:53 Dose: 100 mg Heparin Sodium (Porcine) (Heparin 10,000 Unit/10 Ml Vial) 2,200 unit IV-PUSH PRN PRN PRN Reason: Dialysis Stop: 04/20/25 15:57 Last Admin: 04/22/24 10:30 Dose: 2,200 unit Heparin Sodium (Porcine) (Heparin 5,000 Unit/Ml Vial) 5,000 unit SUBCUT Q12HR [facility] Stop: 04/20/25 20:59 Last Admin: 04/23/24 09:53 Dose: 5,000 unit Heparin Sodium (Porcine) (Heparin 10,000 Unit/10 Ml Vial) 3,000 unit IV PRN PRN PRN Reason: Dialysis Stop: 04/20/25 19:25 Last Admin: 04/22/24 10:30 Dose: 3,000 unit Heparin Sodium (Porcine) (Heparin 10,000 Unit/10 Ml Vial) 1,500 unit IV PRN PRN PRN Reason: Dialysis Stop: 04/20/25 19:25 Last Admin: 04/22/24 10:31 Dose: 1,500 unit Sodium Chloride (0.9% Sodium Chloride 1,000 Ml) 1,000 mls @ 0 mls/hr MISCELLANE.Q0M PRN PRN Reason: Dialysis Stop: 04/20/25 16:59 Last Infusion: 04/22/24 10:32 Dose: Infused Methadone HCl (Methadone 10 Mg/Ml Oral Concentrate) 220 mg PO DAILY [facility] Last Admin: 04/23/24 09:53 Dose: 220 mg Metoprolol Tartrate (Metoprolol Tartrate 5 Mg/5 Ml Vial) 5 mg IV-PUSH Q4H PRN PRN Reason: Blood Pressure Stop: 04/20/25 17:14 Nicotine (Nicotine Patch 14 Mg/24hr 1 Each Patch.Td24) 1 each TRANSDERML DAILY [facility] Stop: 05/03/24 09:01 Last Admin: 04/23/24 09:54 Dose: 1 each Nicotine Polacrilex (Nicotine Polacrilex 2 Mg Gum) 2 mg BUCCAL Q2HR PRN PRN Reason: Nicotine Cravings Stop: 04/20/25 17:06 Polyethylene Glycol (Polyethylene Glycol 3350 17 Gm Powd.Pack) 17 gm PO BID [facility] Stop: 04/20/25 20:59 Last Admin: 04/23/24 09:55 Dose: Not Given Prochlorperazine Edisylate (Prochlorperazine Edisylate 10 Mg/2 Ml Vial) 5 mg IV- PUSH Q4H PRN PRN Reason: Nausea OR Vomiting Stop: 04/20/25 17:14 Last Admin: 04/22/24 18:30 Dose: 5 mg Sevelamer Carbonate (Sevelamer Carbonate 800 Mg Tablet) 800 mg PO TID.WITH.MEALS [facility] Stop: 04/21/25 11:59 Last Admin: 04/23/24 09:53 Dose: 800 mg Sodium Chloride (Sodium Chloride 0.9 % 10 Ml Syringe) 0 ml IV-PUSH PRN PRN PRN Reason: Flush Stop: 04/20/25 16:59 Last Admin: 04/22/24 10:29 Dose: 40 ml Sodium Chloride (Sodium Chloride 0.9 % 10 Ml Syringe) 0 ml IV-PUSH PRN PRN PRN Reason: Flush Stop: 04/20/25 17:06 Last Admin: 04/20/24 19:29 Dose: 60 ml Allergies No Known Allergies Allergy (Verified 11/29/23 08:52) Results - Nephrology Labs 04/23/24 03:39 04/23/24 03:39 Labs: 04/23/24 03:39 BUN 39 H Creatinine 8.15 H D Phosphorus 5.4 H Albumin 3.5 Radiology Impressions Impressions - last 24 hours: Any impression(s) listed above is documentation that was entered by the reading physician into a diagnostic report(s) for Ness Beaver. I have reviewedthe report(s) and am incorporating any findings in the treatment plan of this patient where applicable. A&P - Nephrology Assessment/Plan (1) JASMINA (acute kidney injury): Assessment/Problem Details: Patient is a JASMINA due to unclear etiology. Differential diagnoses are RPGN or ATN. Patient has no evidence of obstructive uropathy on CAT scan. (2) Hyperkalemia: Assessment/Problem Details: He had hyperkalemia due to the JASMINA and metabolic acidosis. His hyperkalemia wascorrected with dialysis. (3) Metabolic acidosis: Assessment/Problem Details: He had metabolic acidosis likely due to the JASMINA. His metabolic acidosis corrected with dialysis. (4) Hepatitis C: Assessment/Problem Details: Patient has a known history of hepatitis C. (5) Anemia: Assessment/Problem Details: He has a anemia due to the unclear etiology. He has a normal haptoglobin with mildly elevated LDH and no evidence of schistocytes on peripheral smear so possibility of hemolytic anemia is low. He has normal iron stores B12 and folate level. Plan * No need for dialysis today. Next dialysis will be tomorrow or Wednesday if needed. * Will order the workup for RPGN including ANCA, serum cryoglobulin, anti-GBM, lupus and paraproteinemia. * Kidney biopsy scheduled for Wednesday.. * Check renal function daily and monitor input output * Documented By: Ben Bravo MD 04/23/24 8927 Signed By: <Electronically signed by Ben Bravo MD> 04/23/24 1203 [facility] Work Phone: [phone]) 724-826102-23-2025 [place] [address] Nephrology Progress Note Signed Patient: Ness Beaver MR#: [id number] 1230 : 1980 Acct:[id number] Age/Sex: 44 / M Adm Date: 5 Loc: Room: [address] [place] [address] Type: ADM IN Attending Dr: Jean Pierre Hassan MD Copies to: ~ Date of Service: 04/23/2024 Subjective Subjective Narrative: This is a 44-year male with a medical history of hepatitis B and C, polysubstance abuse was presented to the [facility] for nausea and vomiting. On evaluation emergency room patient was found to have a acute kidneyinjury with elevated serum creatinine 20 mg/dL and BUN 176 mg/dL. He was also found to have a hyperkalemia with serum potassium 6.7 mmol/L and metabolic acidosis serum bicarbonate 14 mmol/L. Patient was found to have anemia with a hemoglobin 12.2 g/dL. His CK was 742. Patient has a history of polysubstance abuse and reported to use of meth and cocaine in the past. He is also follows with the methadone clinic. Patient was treated for hyperkalemia with calcium gluconate, insulin plus D50 and Lokelma. Patient was started on a bicarbonate drip. I was consulted by the General acute hospital physician for emergent need of dialysis. I recommended that patient should be given sodium bicarbonate 100 mEqIV x 1 dose and also needs to be transferred for emergent dialysis at the [facility]. Patient will need a further workup includingkidney biopsy. Interim history Patient was seen and examined at bedside during hemodialysis. He is feeling better denies any chestpain palpitation cough nausea vomit diarrhea shortness of breath. Patient has a JASMINA due to the unclear etiology. Workup has been ordered and pending. He is also scheduled to have a kidney biopsy on Wednesday. Patient was initiated on hemodialysis on the day of admission and has received 3session of dialysisand tolerated well. His last hemodialysis was on 04/22/2024. Exam Physical Exam Vital Signs: Temp Pulse Resp BP Pulse Ox O2 Del Method O2 Flow Rate 99.2 F H 75 18 136/81 97 Room Air 2 04/23/24 11:33 04/23/24 11:33 04/23/24 11:33 04/23/24 11:33 04/23/24 11:33 04/23/24 11:33 04/22/24 13:07 Narrative: General: Appears comfortable and not in distress Heart: S1-S2, no rub Lung: Bilateral air entry, no wheezing or crackles Abdomen: Soft, positive bowel sounds Extremities: No edema, no cyanosis Head: Atraumatic, normocephalic Ear: No gross hearing Deficit or external ear redness Eyes: No pallor or redness Neck: No JVD or visible mass Skin: No rashes , warm to touch [employer]: Awake,Alert, following simple command Musculoskeletal: No swelling or limitation of movement of the large joints Psychiatric: Cooperative, normal mood and affect Objective Intake and Output I&O: Intake & Output 04/20/24 04/21/24 04/22/24 04/23/24 23:59 23:59 23:59 23:59 Intake Total 1500 / 1500 1140 / 1140 850 / 850 150 / 150 Output Total 852 / 852 1100 / 1100 1001 / 1001 600 / 600 Balance 648 / 648 40 / 40 -151 / -151 -450 / -450 Weight 69.6 kg 70.7 kg 71.5 kg 73 kg Meds and Allergies Meds: Active Medications Acetaminophen (Acetaminophen 325 Mg Tablet) 650 mg PO Q4H PRN PRN Reason: Pain Scale 1 - 3 or fever Stop: 04/20/25 17:06 Last Admin: 04/21/24 14:53 Dose: 650 mg Bisacodyl (Bisacodyl 5 Mg Tablet.Dr) 10 mg PO DAILY PRN PRN Reason: Constipation Stop: 04/20/25 17:06 Docusate Sodium (Docusate 100 Mg Capsule) 100 mg PO BID [facility] Stop: 04/20/25 20:59 Last Admin: 04/23/24 09:53 Dose: 100 mg Heparin Sodium (Porcine) (Heparin 10,000 Unit/10 Ml Vial) 2,200 unit IV-PUSH PRN PRN PRN Reason: Dialysis Stop: 04/20/25 15:57 Last Admin: 04/22/24 10:30 Dose: 2,200 unit Heparin Sodium (Porcine) (Heparin 5,000 Unit/Ml Vial) 5,000 unit SUBCUT Q12HR [facility]AGAR Stop: 04/20/25 20:59 Last Admin: 04/23/24 09:53 Dose: 5,000 unit Heparin Sodium (Porcine) (Heparin 10,000 Unit/10 Ml Vial) 3,000 unit IV PRN PRN PRN Reason: Dialysis Stop: 04/20/25 19:25 Last Admin: 04/22/24 10:30 Dose: 3,000 unit Heparin Sodium (Porcine) (Heparin 10,000 Unit/10 Ml Vial) 1,500 unit IV PRN PRN PRN Reason: Dialysis Stop: 04/20/25 19:25 Last Admin: 04/22/24 10:31 Dose: 1,500 unit Sodium Chloride (0.9% Sodium Chloride 1,000 Ml) 1,000 mls @ 0 mls/hr MISCELLANE.Q0M PRN PRN Reason: Dialysis Stop: 04/20/25 16:59 Last Infusion: 04/22/24 10:32 Dose: Infused Methadone HCl (Methadone 10 Mg/Ml Oral Concentrate) 220 mg PO DAILY [facility] Last Admin: 04/23/24 09:53 Dose: 220 mg Metoprolol Tartrate (Metoprolol Tartrate 5 Mg/5 Ml Vial) 5 mg IV-PUSH Q4H PRN PRN Reason: Blood Pressure Stop: 04/20/25 17:14 Nicotine (Nicotine Patch 14 Mg/24hr 1 Each Patch.Td24) 1 each TRANSDERML DAILY [facility] Stop: 05/03/24 09:01 Last Admin: 04/23/24 09:54 Dose: 1 each Nicotine Polacrilex (Nicotine Polacrilex 2 Mg Gum) 2 mg BUCCAL Q2HR PRN PRN Reason: Nicotine Cravings Stop: 04/20/25 17:06 Polyethylene Glycol (Polyethylene Glycol 3350 17 Gm Powd.Pack) 17 gm PO BID [facility] Stop: 04/20/25 20:59 Last Admin: 04/23/24 09:55 Dose: Not Given Prochlorperazine Edisylate (Prochlorperazine Edisylate 10 Mg/2 Ml Vial) 5 mg IV- PUSH Q4H PRN PRN Reason: Nausea OR Vomiting Stop: 04/20/25 17:14 Last Admin: 04/22/24 18:30 Dose: 5 mg Sevelamer Carbonate (Sevelamer Carbonate 800 Mg Tablet) 800 mg PO TID.WITH.MEALS SAGAR Stop: 04/21/25 11:59 Last Admin: 04/23/24 09:53 Dose: 800 mg Sodium Chloride (Sodium Chloride 0.9 % 10 Ml Syringe) 0 ml IV-PUSH PRN PRN PRN Reason: Flush Stop: 04/20/25 16:59 Last Admin: 04/22/24 10:29 Dose: 40 ml Sodium Chloride (Sodium Chloride 0.9 % 10 Ml Syringe) 0 ml IV-PUSH PRN PRN PRN Reason: Flush Stop: 04/20/25 17:06 Last Admin: 04/20/24 19:29 Dose: 60 ml Allergies No Known Allergies Allergy (Verified 11/29/23 08:52) Results - Nephrology Labs 04/23/24 03:39 04/23/24 03:39 Labs: 04/23/24 03:39 BUN 39 H Creatinine 8.15 H D Phosphorus 5.4 H Albumin 3.5 Radiology Impressions Impressions - last 24 hours: Any impression(s) listed above is documentation that was entered by the reading physician into a diagnostic report(s) for Ness Beaver. I have reviewedthe report(s) and am incorporating any findings in the treatment plan of this patient where applicable. A&P - Nephrology Assessment/Plan (1) JASMINA (acute kidney injury): Assessment/Problem Details: Patient is a JASMINA due to unclear etiology. Differential diagnoses are RPGN or ATN. Patient has no evidence of obstructive uropathy on CAT scan. (2) Hyperkalemia: Assessment/Problem Details: He had hyperkalemia due to the JASIMNA and metabolic acidosis. His hyperkalemia wascorrected with dialysis. (3) Metabolic acidosis: Assessment/Problem Details: He had metabolic acidosis likely due to the JASMINA. His metabolic acidosis corrected with dialysis. (4) Hepatitis C: Assessment/Problem Details: Patient has a known history of hepatitis C. (5) Anemia: Assessment/Problem Details: He has a anemia due to the unclear etiology. He has a normal haptoglobin with mildly elevated LDH and no evidence of schistocytes on peripheral smear so possibility of hemolytic anemia is low. He hasnormal iron stores B12 and folate level. Plan * No need for dialysis today. Next dialysis will be tomorrow or Wednesday if needed. * Will order the workup for RPGN including ANCA, serum cryoglobulin, anti-GBM, lupus and paraproteinemia. * Kidney biopsy scheduled for Wednesday.. * Check renal function daily and monitor input output * Documented By: Ben Bravo MD 04/23/24 1158 Signed By: 04/23/24 1202 [facility]02-22-2025 Progress note Author Jean Pierre Hassan [facility] Note Date/Time April 22, 2024 4:00pm [facility] [address] [place] [address] Hospitalist Progress Note Signed Patient: Ness Beaver MR#: [id number] 1230 : 1980 Acct:[id number] Age/Sex: 44 / M Adm Date: 5 Loc: Room: [address] [place] [address] Type: ADM IN Attending Dr: Jea nPierre Hassan MD Copies to: ~ Date of Service: 04/22/2024 Subjective Subjective Narrative: Out of bed to chair, resting comfortably, no new complaints. Tolerating methadone p.o. without issue. Discussed plan for renal biopsy next week. Exam Physical Exam Vital Signs: Temp Pulse Resp BP Pulse Ox O2 Del Method O2 Flow Rate 97.2 F L 77 16 147/91 H 93 L Room Air 1 04/22/24 09:53 04/22/24 11:00 04/22/24 09:53 04/22/24 11:00 04/22/24 09:53 04/22/24 09:53 04/21/24 13:59 Narrative: General: cooperative and comfortable Orientation: alert, awake and oriented x3 Head: normal to inspection Neck: normal visual inspection, dialysis catheter in R neck Cardio: no JVD, regular rate, regular rhythm Chest palpation & inspection: normal inspection of the chest Resp Effort & Inspection: normal respiratory effort Abd: soft, non-tender, non-distended Extremities: Warm well perfused, no edema Objective Lab Results 04/22/24 04:35 04/22/24 04:35 Microbiology Results Microbiology 04/21/24 04:30 Urine - Clean-Voided Midstream Urine Culture - Preliminary <9,000 colonies/ml mixed bacterial skin contaminants 1 Day Meds Allergies and Active Meds Allergies No Known Allergies Allergy (Verified 11/29/23 08:52) Active Meds: Active Medications Generic Name Dose Route Start Last Admin Trade Name Christopherq PRN Reason Stop Dose Admin Acetaminophen 650 mg 04/20/24 17:07 04/21/24 14:53 Acetaminophen 325 Mg Tablet PO 04/20/25 17:06 650 mg Q4H PRN Administration Pain Scale 1 - 3 or fever Bisacodyl 10 mg 04/20/24 17:07 Bisacodyl 5 Mg Tablet.Dr PO 04/20/25 17:06 DAILY PRN Constipation Docusate Sodium 100 mg 04/20/24 21:00 04/22/24 08:40 Docusate 100 Mg Capsule PO 04/20/25 20:59 100 mg BID SAGAR Administration Heparin Sodium (Porcine) 2,200 unit 04/20/24 15:58 04/22/24 10:30 Heparin 10,000 Unit/10 Ml Vial IV-PUSH 04/20/25 15:57 2,200 unit PRN PRN Administration Dialysis Heparin Sodium (Porcine) 5,000 unit 04/20/24 21:00 04/22/24 08:41 Heparin 5,000 Unit/Ml Vial SUBCUT 04/20/25 20:59 5,000 unit Q12HR SAGAR Administration Heparin Sodium (Porcine) 3,000 unit 04/22/24 08:23 04/22/24 10:30 Heparin 10,000 Unit/10 Ml Vial IV 04/20/25 19:25 3,000 unit PRN PRN Administration Dialysis Heparin Sodium (Porcine) 1,500 unit 04/22/24 08:23 04/22/24 10:31 Heparin 10,000 Unit/10 Ml Vial IV 04/20/25 19:25 1,500 unit PRN PRN Administration Dialysis Sodium Chloride 1,000 mls @ 0 mls/hr 04/20/24 17:00 04/22/24 10:32 0.9% Sodium Chloride 1,000 Ml MISCELLANE 04/20/25 16:59 Infused .Q0M PRN Infusion Dialysis As Directed Methadone HCl 220 mg 04/20/24 20:45 04/22/24 08:40 Methadone 10 Mg/Ml Oral Concentrate PO 220 mg DAILY [facility] Administration Metoprolol Tartrate 5 mg 04/20/24 17:15 Metoprolol Tartrate 5 Mg/5 Ml Vial IV-PUSH 04/20/25 17:14 Q4H PRN Blood Pressure Nicotine 1 each 04/20/24 17:10 04/22/24 08:40 Nicotine Patch 14 Mg/24hr 1 Each Patch.Td24 TRANSDERML 05/03/24 09:01 1 each DAILY [facility] Administration Nicotine Polacrilex 2 mg 04/20/24 17:07 Nicotine Polacrilex 2 Mg Gum BUCCAL 04/20/25 17:06 Q2HR PRN Nicotine Cravings Polyethylene Glycol 17 gm 04/20/24 21:00 04/22/24 08:40 Polyethylene Glycol 3350 17 Gm Powd.Pack PO 04/20/25 20:59 17 gm BID SAGAR Administration Prochlorperazine Edisylate 5 mg 04/20/24 17:15 04/22/24 09:36 Prochlorperazine Edisylate 10 Mg/2 Ml Vial IV-PUSH 04/20/25 17:14 5 mg Q4H PRN Administration Nausea OR Vomiting Sevelamer Carbonate 800 mg 04/21/24 12:00 04/22/24 08:40 Sevelamer Carbonate 800 Mg Tablet PO 04/21/25 11:59 800 mg TID.WITH.MEALS SAGAR Administration Sodium Chloride 0 ml 04/20/24 17:00 04/22/24 10:29 Sodium Chloride 0.9 % 10 Ml Syringe IV-PUSH 04/20/25 16:59 40 ml PRN PRN Administration Flush Sodium Chloride 0 ml 04/20/24 17:07 04/20/24 19:29 Sodium Chloride 0.9 % 10 Ml Syringe IV-PUSH 04/20/25 17:06 60 ml PRN PRN Administration Flush A&P - Hospitalist Assessment/Plan (1) JASMINA (acute kidney injury): (2) Hyperkalemia: (3) Metabolic acidosis: (4) Anemia: (5) Vapes nicotine containing substance: Plan Plan: - continue hemodialysis per nephrology - Extensive work up ordered by nephrology for vasculitis, lupus, and other etiologies of kidney injury. - plan for bone marrow biopsy on Wednesday at 11 am -QTc < 500, continue home methadone dose - Nicotine patch and nicotine gum - Check labs daily. - DVT prophylaxis with heparin 5000 units subcutaneously every 12 hours. Stable for transfer to . Documented By: Jean Pierre Hassan MD 04/22/24 1110 Signed By: <Electronically signed by Jean Pierre Hassan MD> 04/22/24 1600 [facility] Work Phone: 1(273) [phone] [place] [id number] Hospital[place] Progress Note Signed Patient: Ness Beaver MR#: [id number] 1230 : 1980 Acct:[id number] Age/Sex: 44 / M Adm Date: 5 Loc: Room: [address] [place] [address] Type: ADM IN Attending Dr: Jean Pierre Hassan MD Copies to: ~ Date of Service: 04/22/2024 Subjective Subjective Narrative: Out of bed to chair, resting comfortably, no new complaints. Tolerating methadone p.o. without issue. Discussed plan for renal biopsy next week. Exam Physical Exam Vital Signs: Temp Pulse Resp BP Pulse Ox O2 Del Method O2 Flow Rate 97.2 F L 77 16 147/91 H 93 L Room Air 1 04/22/24 09:53 04/22/24 11:00 04/22/24 09:53 04/22/24 11:00 04/22/24 09:53 04/22/24 09:53 04/21/24 13:59 Narrative: General: cooperative and comfortable Orientation: alert, awake and oriented x3 Head: normal to inspection Neck: normal visual inspection, dialysis catheter in R neck Cardio: no JVD, regular rate, regular rhythm Chest palpation & inspection: normal inspection of the chest Resp Effort & Inspection: normal respiratory effort Abd: soft, non-tender, non-distended Extremities: Warm well perfused, no edema Objective Lab Results 04/22/24 04:35 04/22/24 04:35 Microbiology Results Microbiology 04/21/24 04:30 Urine - Clean-Voided Midstream Urine Culture - Preliminary <9,000 colonies/ml mixed bacterial skin contaminants 1 Day Meds Allergies and Active Meds Allergies No Known Allergies Allergy (Verified 11/29/23 08:52) Active Meds: Active Medications Generic Name Dose Route Start Last Admin Trade Name Freq PRN Reason Stop Dose Admin Acetaminophen 650 mg 04/20/24 17:07 04/21/24 14:53 Acetaminophen 325 Mg Tablet PO 04/20/25 17:06 650 mg Q4H PRN Administration Pain Scale 1 - 3 or fever Bisacodyl 10 mg 04/20/24 17:07 Bisacodyl 5 Mg Tablet.Dr PO 04/20/25 17:06 DAILY PRN Constipation Docusate Sodium 100 mg 04/20/24 21:00 04/22/24 08:40 Docusate 100 Mg Capsule PO 04/20/25 20:59 100 mg BID SAGAR Administration Heparin Sodium (Porcine) 2,200 unit 04/20/24 15:58 04/22/24 10:30 Heparin 10,000 Unit/10 Ml Vial IV-PUSH 04/20/25 15:57 2,200 unit PRN PRN Administration Dialysis Heparin Sodium (Porcine) 5,000 unit 04/20/24 21:00 04/22/24 08:41 Heparin 5,000 Unit/Ml Vial SUBCUT 04/20/25 20:59 5,000 unit Q12HR SAGAR Administration Heparin Sodium (Porcine) 3,000 unit 04/22/24 08:23 04/22/24 10:30 Heparin 10,000 Unit/10 Ml Vial IV 04/20/25 19:25 3,000 unit PRN PRN Administration Dialysis Heparin Sodium (Porcine) 1,500 unit 04/22/24 08:23 04/22/24 10:31 Heparin 10,000 Unit/10 Ml Vial IV 04/20/25 19:25 1,500 unit PRN PRN Administration Dialysis Sodium Chloride 1,000 mls @ 0 mls/hr 04/20/24 17:00 04/22/24 10:32 0.9% Sodium Chloride 1,000 Ml MISCELLANE 04/20/25 16:59 Infused .Q0M PRN Infusion Dialysis As Directed Methadone HCl 220 mg 04/20/24 20:45 04/22/24 08:40 Methadone 10 Mg/Ml Oral Concentrate PO 220 mg DAILY [facility] Administration Metoprolol Tartrate 5 mg 04/20/24 17:15 Metoprolol Tartrate 5 Mg/5 Ml Vial IV-PUSH 04/20/25 17:14 Q4H PRN Blood Pressure Nicotine 1 each 04/20/24 17:10 04/22/24 08:40 Nicotine Patch 14 Mg/24hr 1 Each Patch.Td24 TRANSDERML 05/03/24 09:01 1 each DAILY [facility] Administration Nicotine Polacrilex 2 mg 04/20/24 17:07 Nicotine Polacrilex 2 Mg Gum BUCCAL 04/20/25 17:06 Q2HR PRN Nicotine Cravings Polyethylene Glycol 17 gm 04/20/24 21:00 04/22/24 08:40 Polyethylene Glycol 3350 17 Gm Powd.Pack PO 04/20/25 20:59 17 gm BID [facility]AGAR Administration Prochlorperazine Edisylate 5 mg 04/20/24 17:15 04/22/24 09:36 Prochlorperazine Edisylate 10 Mg/2 Ml Vial IV-PUSH 04/20/25 17:14 5 mg Q4H PRN Administration Nausea OR Vomiting Sevelamer Carbonate 800 mg 04/21/24 12:00 04/22/24 08:40 Sevelamer Carbonate 800 Mg Tablet PO 04/21/25 11:59 800 mg TID.WITH.MEALS SAGAR Administration Sodium Chloride 0 ml 04/20/24 17:00 04/22/24 10:29 Sodium Chloride 0.9 % 10 Ml Syringe IV-PUSH 04/20/25 16:59 40 ml PRN PRN Administration Flush Sodium Chloride 0 ml 04/20/24 17:07 04/20/24 19:29 Sodium Chloride 0.9 % 10 Ml Syringe IV-PUSH 04/20/25 17:06 60 ml PRN PRN Administration Flush A&P - Hospitalist Assessment/Plan (1) JASMINA (acute kidney injury): (2) Hyperkalemia: (3) Metabolic acidosis: (4) Anemia: (5) Vapes nicotine containing substance: Plan Plan: - continue hemodialysis per nephrology - Extensive work up ordered by nephrology for vasculitis, lupus, and other etiologies of kidney injury. - plan for bone marrow biopsy on Wednesday at 11 am -QTc < 500, continue home methadone dose - Nicotine patch and nicotine gum - Check labs daily. - DVT prophylaxis with heparin 5000 units subcutaneously every 12 hours. Stable for transfer to . Documented By: Jean Pierre Hassan MD 04/22/24 1110 Signed By: 04/22/24 1600 [facility]02-22-2025 Progress note Author Ben Bravo [facility] Note Date/Time April 22, 2024 1:13pm [facility] [address] [place] [address] Nephrology Progress Note Signed Patient: Ness Beaver MR#: [id number] 1230 : 1980 Acct:[id number] Age/Sex: 44 / M Adm Date: 5 Loc: Room: [address] [place] [address] Type: ADM IN Attending Dr: Jean Pierre Hassan MD Copies to: ~ Date of Service: 04/22/2024 Subjective Subjective Narrative: This is a 44-year male with a medical history of hepatitis B and C, polysubstance abuse was presented to the [facility] for nausea and vomiting. On evaluation emergency room patient was found to have a acute kidneyinjury with elevated serum creatinine 20 mg/dL and BUN 176 mg/dL. He was also found to have a hyperkalemia with serum potassium 6.7 mmol/L and metabolic acidosis serum bicarbonate 14 mmol/L. Patient was found to have anemia with a hemoglobin 12.2 g/dL. His CK was 742. Patient has a history of polysubstance abuse and reported to use of meth and cocaine in the past. He is also follows with the methadone clinic. Patient was treated for hyperkalemia with calcium gluconate, insulin plus D50 and Lokelma. Patient was started on a bicarbonate drip. I was consulted by the [place] ER physician for emergent need of dialysis. Adequate and patient should be given sodium bicarbonate 100 mEq IV x 1 dose and also needs to be transferred for dialysis at the [facility]. Patient will need a further workup including kidney biopsy. Interim history Patient was seen and examined at bedside during hemodialysis. He is feeling better denies any chest pain palpitation cough nausea vomit diarrhea shortness of breath. Exam Physical Exam Vital Signs: Temp Pulse Resp BP Pulse Ox O2 Del Method O2 Flow Rate 97.2 F L 68 16 143/86 H 93 L Room Air 1 04/22/24 09:53 04/22/24 13:07 04/22/24 09:53 04/22/24 13:07 04/22/24 09:53 04/22/24 09:53 04/21/24 13:59 Narrative: General: Appears comfortable and not in distress Heart: S1-S2, no rub Lung: Bilateral air entry, no wheezing or crackles Abdomen: Soft, positive bowel sounds Extremities: No edema, no cyanosis Head: Atraumatic, normocephalic Ear: No gross hearing Deficit or external ear redness Eyes: No pallor or redness Neck: No JVD or visible mass Skin: No rashes , warm to touch [employer]: Awake,Alert, following simple command Musculoskeletal: No swelling or limitation of movement of the large joints Psychiatric: Cooperative, normal mood and affect Objective Intake and Output I&O: Intake & Output 04/19/24 04/20/24 04/21/24 04/22/24 23:59 23:59 23:59 23:59 Intake Total 1500 / 1500 1140 / 1140 600 / 600 Output Total 852 / 852 1100 / 1100 500 / 500 Balance 648 / 648 40 / 40 100 / 100 Weight 69.6 kg 70.7 kg 71.5 kg Meds and Allergies Meds: Active Medications Acetaminophen (Acetaminophen 325 Mg Tablet) 650 mg PO Q4H PRN PRN Reason: Pain Scale 1 - 3 or fever Stop: 04/20/25 17:06 Last Admin: 04/21/24 14:53 Dose: 650 mg Bisacodyl (Bisacodyl 5 Mg Tablet.Dr) 10 mg PO DAILY PRN PRN Reason: Constipation Stop: 04/20/25 17:06 Docusate Sodium (Docusate 100 Mg Capsule) 100 mg PO BID [facility] Stop: 04/20/25 20:59 Last Admin: 04/22/24 08:40 Dose: 100 mg Heparin Sodium (Porcine) (Heparin 10,000 Unit/10 Ml Vial) 2,200 unit IV-PUSH PRN PRN PRN Reason: Dialysis Stop: 04/20/25 15:57 Last Admin: 04/22/24 10:30 Dose: 2,200 unit Heparin Sodium (Porcine) (Heparin 5,000 Unit/Ml Vial) 5,000 unit SUBCUT Q12HR [facility] Stop: 04/20/25 20:59 Last Admin: 04/22/24 08:41 Dose: 5,000 unit Heparin Sodium (Porcine) (Heparin 10,000 Unit/10 Ml Vial) 3,000 unit IV PRN PRN PRN Reason: Dialysis Stop: 04/20/25 19:25 Last Admin: 04/22/24 10:30 Dose: 3,000 unit Heparin Sodium (Porcine) (Heparin 10,000 Unit/10 Ml Vial) 1,500 unit IV PRN PRN PRN Reason: Dialysis Stop: 04/20/25 19:25 Last Admin: 04/22/24 10:31 Dose: 1,500 unit Sodium Chloride (0.9% Sodium Chloride 1,000 Ml) 1,000 mls @ 0 mls/hr MISCELLANE.Q0M PRN PRN Reason: Dialysis Stop: 04/20/25 16:59 Last Infusion: 04/22/24 10:32 Dose: Infused Methadone HCl (Methadone 10 Mg/Ml Oral Concentrate) 220 mg PO DAILY [facility] Last Admin: 04/22/24 08:40 Dose: 220 mg Metoprolol Tartrate (Metoprolol Tartrate 5 Mg/5 Ml Vial) 5 mg IV-PUSH Q4H PRN PRN Reason: Blood Pressure Stop: 04/20/25 17:14 Nicotine (Nicotine Patch 14 Mg/24hr 1 Each Patch.Td24) 1 each TRANSDERML DAILY [facility] Stop: 05/03/24 09:01 Last Admin: 04/22/24 08:40 Dose: 1 each Nicotine Polacrilex (Nicotine Polacrilex 2 Mg Gum) 2 mg BUCCAL Q2HR PRN PRN Reason: Nicotine Cravings Stop: 04/20/25 17:06 Polyethylene Glycol (Polyethylene Glycol 3350 17 Gm Powd.Pack) 17 gm PO BID [facility] Stop: 04/20/25 20:59 Last Admin: 04/22/24 08:40 Dose: 17 gm Prochlorperazine Edisylate (Prochlorperazine Edisylate 10 Mg/2 Ml Vial) 5 mg IV- PUSH Q4H PRN PRN Reason: Nausea OR Vomiting Stop: 04/20/25 17:14 Last Admin: 04/22/24 09:36 Dose: 5 mg Sevelamer Carbonate (Sevelamer Carbonate 800 Mg Tablet) 800 mg PO TID.WITH.MEALS [facility] Stop: 04/21/25 11:59 Last Admin: 04/22/24 13:00 Dose: Not Given Sodium Chloride (Sodium Chloride 0.9 % 10 Ml Syringe) 0 ml IV-PUSH PRN PRN PRN Reason: Flush Stop: 04/20/25 16:59 Last Admin: 04/22/24 10:29 Dose: 40 ml Sodium Chloride (Sodium Chloride 0.9 % 10 Ml Syringe) 0 ml IV-PUSH PRN PRN PRN Reason: Flush Stop: 04/20/25 17:06 Last Admin: 04/20/24 19:29 Dose: 60 ml Allergies No Known Allergies Allergy (Verified 09/30/24 08:52) Results - Nephrology Labs 04/22/24 04:35 04/22/24 04:35 Labs: 04/22/24 04:35 BUN 56 H D Creatinine 9.43 H D Phosphorus 6.9 H Albumin 3.9 Radiology Impressions Impressions - last 24 hours: Any impression(s) listed above is documentation that was entered by the reading physician into a diagnostic report(s) for Ness Beaver. I have reviewedthe report(s) and am incorporating any findings in the treatment plan of this patient where applicable. A&P - Nephrology Assessment/Plan (1) JASMINA (acute kidney injury): Assessment/Problem Details: Patient is a JASMINA due to unclear etiology. Differential diagnoses are RPGN, AIN or ATN. Patient has no evidence of obstructive uropathy on CAT scan. (2) Hyperkalemia: Assessment/Problem Details: He has hyperkalemia due to the JASMINA and metabolic acidosis. (3) Metabolic acidosis: Assessment/Problem Details: He has metabolic acidosis likely due to the JASMINA. (4) Hepatitis C: Assessment/Problem Details: Patient has a known history of hepatitis C. (5) Anemia: Assessment/Problem Details: He has a anemia due to the unclear etiology. He has a normal haptoglobin with mildly elevated LDH and no evidence of schistocytes on peripheral smear so possibility of hemolytic anemia is low. He has normal iron stores B12 and folate level. Plan * Hemodialysis today as ordered. * Will order the workup for RPGN including ANCA, serum cryoglobulin, anti-GBM, lupus and paraproteinemia. * Kidney biopsy scheduled for Wednesday.. * Check renal function daily and monitor input output * Documented By: Ben Bravo MD 04/22/24 1308 Signed By: <Electronically signed by Ben Bravo MD> 04/22/24 1314 [facility] Work Phone: [phone]) [phone] [address] Nephrology Progress Note Signed Patient: Ness Beaver MR#: [id number] 1230 : 1980 Acct:[id number] Age/Sex: 44 / M Adm Date: 5 Loc: Room: 5N5735-6 Type: ADM IN Attending Dr: Jean Pierre Hassan MD Copies to: ~ Date of Service: 04/22/2024 Subjective Subjective Narrative: This is a 44-year male with a medical history of hepatitis B and C, polysubstance abuse was presented to the [facility] for nausea and vomiting. On evaluation emergency room patient was found to have a acute kidneyinjury with elevated serum creatinine 20 mg/dL and BUN 176 mg/dL. He was also found to have a hyperkalemia with serum potassium 6.7 mmol/L and metabolic acidosis serum bicarbonate 14 mmol/L. Patient was found to have anemia with a hemoglobin 12.2 g/dL. His CK was 742. Patient has a history of polysubstance abuse and reported to use of meth and cocaine in the past. He is also follows with the methadone clinic. Patient was treated for hyperkalemia with calcium gluconate, insulin plus D50 and Lokelma. Patient was started on a bicarbonate drip. I was consulted by the General acute hospital physician for emergent need of dialysis. Adequate and patient should be given sodium [id number] mEq IV x 1 dose and also needs to be transferred for dialysis at the [facility]. Patient will need a further workup including kidney biopsy. Interim history Patient was seen and examined at bedside during hemodialysis. He is feeling better denies any chestpain palpitation cough nausea vomit diarrhea shortness of breath. Exam Physical Exam Vital Signs: Temp Pulse Resp BP Pulse Ox O2 Del Method O2 Flow Rate 97.2 F L 68 16 143/86 H 93 L Room Air 1 04/22/24 09:53 04/22/24 13:07 04/22/24 09:53 04/22/24 13:07 04/22/24 09:53 04/22/24 09:53 04/21/24 13:59 Narrative: General: Appears comfortable and not in distress Heart: S1-S2, no rub Lung: Bilateral air entry, no wheezing or crackles Abdomen: Soft, positive bowel sounds Extremities: No edema, no cyanosis Head: Atraumatic, normocephalic Ear: No gross hearing Deficit or external ear redness Eyes: No pallor or redness Neck: No JVD or visible mass Skin: No rashes , warm to touch [employer]: Awake,Alert, following simple command Musculoskeletal: No swelling or limitation of movement of the large joints Psychiatric: Cooperative, normal mood and affect Objective Intake and Output I&O: Intake & Output 04/19/24 04/20/24 04/21/24 04/22/24 23:59 23:59 23:59 23:59 Intake Total 1500 / 1500 1140 / 1140 600 / 600 Output Total 852 / 852 1100 / 1100 500 / 500 Balance 648 / 648 40 / 40 100 / 100 Weight 69.6 kg 70.7 kg 71.5 kg Meds and Allergies Meds: Active Medications Acetaminophen (Acetaminophen 325 Mg Tablet) 650 mg PO Q4H PRN PRN Reason: Pain Scale 1 - 3 or fever Stop: 04/20/25 17:06 Last Admin: 04/21/24 14:53 Dose: 650 mg Bisacodyl (Bisacodyl 5 Mg Tablet.Dr) 10 mg PO DAILY PRN PRN Reason: Constipation Stop: 04/20/25 17:06 Docusate Sodium (Docusate 100 Mg Capsule) 100 mg PO BID [facility] Stop: 04/20/25 20:59 Last Admin: 04/22/24 08:40 Dose: 100 mg Heparin Sodium (Porcine) (Heparin 10,000 Unit/10 Ml Vial) 2,200 unit IV-PUSH PRN PRN PRN Reason: Dialysis Stop: 04/20/25 15:57 Last Admin: 04/22/24 10:30 Dose: 2,200 unit Heparin Sodium (Porcine) (Heparin 5,000 Unit/Ml Vial) 5,000 unit SUBCUT Q12HR [facility] Stop: 04/20/25 20:59 Last Admin: 04/22/24 08:41 Dose: 5,000 unit Heparin Sodium (Porcine) (Heparin 10,000 Unit/10 Ml Vial) 3,000 unit IV PRN PRN PRN Reason: Dialysis Stop: 04/20/25 19:25 Last Admin: 04/22/24 10:30 Dose: 3,000 unit Heparin Sodium (Porcine) (Heparin 10,000 Unit/10 Ml Vial) 1,500 unit IV PRN PRN PRN Reason: Dialysis Stop: 04/20/25 19:25 Last Admin: 04/22/24 10:31 Dose: 1,500 unit Sodium Chloride (0.9% Sodium Chloride 1,000 Ml) 1,000 mls @ 0 mls/hr MISCELLANE.Q0M PRN PRN Reason: Dialysis Stop: 04/20/25 16:59 Last Infusion: 04/22/24 10:32 Dose: Infused Methadone HCl (Methadone 10 Mg/Ml Oral Concentrate) 220 mg PO DAILY [facility] Last Admin: 04/22/24 08:40 Dose: 220 mg Metoprolol Tartrate (Metoprolol Tartrate 5 Mg/5 Ml Vial) 5 mg IV-PUSH Q4H PRN PRN Reason: Blood Pressure Stop: 04/20/25 17:14 Nicotine (Nicotine Patch 14 Mg/24hr 1 Each Patch.Td24) 1 each TRANSDERML DAILY [facility] Stop: 05/03/24 09:01 Last Admin: 04/22/24 08:40 Dose: 1 each Nicotine Polacrilex (Nicotine Polacrilex 2 Mg Gum) 2 mg BUCCAL Q2HR PRN PRN Reason: Nicotine Cravings Stop: 04/20/25 17:06 Polyethylene Glycol (Polyethylene Glycol 3350 17 Gm Powd.Pack) 17 gm PO BID [facility] Stop: 04/20/25 20:59 Last Admin: 04/22/24 08:40 Dose: 17 gm Prochlorperazine Edisylate (Prochlorperazine Edisylate 10 Mg/2 Ml Vial) 5 mg IV- PUSH Q4H PRN PRN Reason: Nausea OR Vomiting Stop: 04/20/25 17:14 Last Admin: 04/22/24 09:36 Dose: 5 mg Sevelamer Carbonate (Sevelamer Carbonate 800 Mg Tablet) 800 mg PO TID.WITH.MEALS [facility] Stop: 04/21/25 11:59 Last Admin: 04/22/24 13:00 Dose: Not Given Sodium Chloride (Sodium Chloride 0.9 % 10 Ml Syringe) 0 ml IV-PUSH PRN PRN PRN Reason: Flush Stop: 04/20/25 16:59 Last Admin: 04/22/24 10:29 Dose: 40 ml Sodium Chloride (Sodium Chloride 0.9 % 10 Ml Syringe) 0 ml IV-PUSH PRN PRN PRN Reason: Flush Stop: 04/20/25 17:06 Last Admin: 04/20/24 19:29 Dose: 60 ml Allergies No Known Allergies Allergy (Verified 11/29/23 08:52) Results - Nephrology Labs 04/22/24 04:35 04/22/24 04:35 Labs: 04/22/24 04:35 BUN 56 H D Creatinine 9.43 H D Phosphorus 6.9 H Albumin 3.9 Radiology Impressions Impressions - last 24 hours: Any impression(s) listed above is documentation that was entered by the reading physician into a diagnostic report(s) for Ness Beaver. I have reviewedthe report(s) and am incorporating any findings in the treatment plan of this patient where applicable. A&P - Nephrology Assessment/Plan (1) JASMINA (acute kidney injury): Assessment/Problem Details: Patient is a JASMINA due to unclear etiology. Differential diagnoses are RPGN, AIN or ATN. Patient has no evidence of obstructive uropathy on CAT scan. (2) Hyperkalemia: Assessment/Problem Details: He has hyperkalemia due to the JASMINA and metabolic acidosis. (3) Metabolic acidosis: Assessment/Problem Details: He has metabolic acidosis likely due to the JASMINA. (4) Hepatitis C: Assessment/Problem Details: Patient has a known history of hepatitis C. (5) Anemia: Assessment/Problem Details: He has a anemia due to the unclear etiology. He has a normal haptoglobin with mildly elevated LDH and no evidence of schistocytes on peripheral smear so possibility of hemolytic anemia is low. He hasnormal iron stores B12 and folate level. Plan * Hemodialysis today as ordered. * Will order the workup for RPGN including ANCA, serum cryoglobulin, anti-GBM, lupus and paraproteinemia. * Kidney biopsy scheduled for Wednesday.. * Check renal function daily and monitor input output * Documented By: Ben Bravo MD 04/22/24 1308 Signed By: 04/22/24 1313 [facility]02-21-2025 Progress note Author Jean Pierre Hassan [facility] Note Date/Time April 21, 2024 8:43pm [facility] [address] [place] [address] Hospitalist Progress Note Signed Patient: Ness Beaver MR#: [id number] 1230 : 1980 Acct:[id number] Age/Sex: 44 / M Adm Date: 5 Loc: Room: [address] [place] [address] Type: ADM IN Attending Dr: Jean Pierre Hassan MD Copies to: ~ Date of Service: 04/21/2024 Subjective Subjective Narrative: Admitted yesterday as transfer from [facility] for urgent hemodialysis, tolerating at present, no complaints. Confirmed admission H&P regarding substance use, methamphetamines last use 3 weeks ago, per H&P distant history ofinjection use. Exam Physical Exam Vital Signs: Temp Pulse Resp BP Pulse Ox O2 Del Method O2 Flow Rate 97.7 F 70 10 L 148/84 H 97 Room Air 1 04/21/24 12:00 04/21/24 13:00 04/21/24 12:00 04/21/24 13:00 04/21/24 12:00 04/21/24 12:04/21/24 10:08 Narrative: General: cooperative and comfortable Orientation: alert, awake and oriented x3 Head: normal to inspection Neck: normal visual inspection, dialysis catheter in R neck Cardio: no JVD, regular rate, regular rhythm Chest palpation & inspection: normal inspection of the chest Resp Effort & Inspection: normal respiratory effort Abd: soft, non-tender, non-distended Extremities: Warm well perfused, no edema Objective Lab Results 04/21/24 07:19 04/21/24 07:19 Meds Allergies and Active Meds Allergies No Known Allergies Allergy (Verified 11/29/23 08:52) Active Meds: Active Medications Generic Name Dose Route Start Last Admin Trade Name Vicente PRN Reason Stop Dose Admin Acetaminophen 650 mg 04/20/24 17:07 04/21/24 04:27 Acetaminophen 325 Mg Tablet PO 04/20/25 17:06 650 mg Q4H PRN Administration Pain Scale 1 - 3 or fever Bisacodyl 10 mg 04/20/24 17:07 Bisacodyl 5 Mg Tablet.Dr PO 04/20/25 17:06 DAILY PRN Constipation Docusate Sodium 100 mg 04/20/24 21:00 04/21/24 08:03 Docusate 100 Mg Capsule PO 04/20/25 20:59 100 mg BID [facility] Administration Heparin Sodium (Porcine) 2,200 unit 04/20/24 15:58 04/21/24 10:28 Heparin 10,000 Unit/10 Ml Vial IV-PUSH 04/20/25 15:57 2,200 unit PRN PRN Administration Dialysis Heparin Sodium (Porcine) 5,000 unit 04/20/24 21:00 04/21/24 08:04 Heparin 5,000 Unit/Ml Vial SUBCUT 04/20/25 20:59 5,000 unit Q12HR [facility] Administration Heparin Sodium (Porcine) 2,000 unit 04/20/24 19:26 04/21/24 10:28 Heparin 10,000 Unit/10 Ml Vial IV 04/20/25 19:25 2,000 unit PRN PRN Administration Dialysis Heparin Sodium (Porcine) 1,000 unit 04/20/24 19:26 04/21/24 10:28 Heparin 10,000 Unit/10 Ml Vial IV 04/20/25 19:25 1,000 unit PRN PRN Administration Dialysis Sodium Chloride 1,000 mls @ 0 mls/hr 04/20/24 17:00 04/21/24 10:32 0.9% Sodium Chloride 1,000 Ml MISCELLANE 04/20/25 16:59 Infused .Q0M PRN Infusion Dialysis As Directed Methadone HCl 220 mg 04/20/24 20:45 04/21/24 09:42 Methadone 10 Mg/Ml Oral Concentrate PO 220 mg DAILY [facility] Administration Metoprolol Tartrate 5 mg 04/20/24 17:15 Metoprolol Tartrate 5 Mg/5 Ml Vial IV-PUSH 04/20/25 17:14 Q4H PRN Blood Pressure Nicotine 1 each 04/20/24 17:10 04/21/24 08:03 Nicotine Patch 14 Mg/24hr 1 Each Patch.Td24 TRANSDERML 05/03/24 09:01 1 each DAILY [facility] Administration Nicotine Polacrilex 2 mg 04/20/24 17:07 Nicotine Polacrilex 2 Mg Gum BUCCAL 04/20/25 17:06 Q2HR PRN Nicotine Cravings Polyethylene Glycol 17 gm 04/20/24 21:00 04/21/24 08:03 Polyethylene Glycol 3350 17 Gm Powd.Pack PO 04/20/25 20:59 17 gm BID [facility] Administration Prochlorperazine Edisylate 5 mg 04/20/24 17:15 04/21/24 08:30 Prochlorperazine Edisylate 10 Mg/2 Ml Vial IV-PUSH 04/20/25 17:14 5 mg Q4H PRN Administration Nausea OR Vomiting Sevelamer Carbonate 800 mg 04/21/24 12:00 04/21/24 13:11 Sevelamer Carbonate 800 Mg Tablet PO 04/21/25 11:59 800 mg TID.WITH.MEALS [facility] Administration Sodium Chloride 0 ml 04/20/24 17:00 04/21/24 10:29 Sodium Chloride 0.9 % 10 Ml Syringe IV-PUSH 04/20/25 16:59 40 ml PRN PRN Administration Flush Sodium Chloride 0 ml 04/20/24 17:07 04/20/24 19:29 Sodium Chloride 0.9 % 10 Ml Syringe IV-PUSH 04/20/25 17:06 60 ml PRN PRN Administration Flush A&P - Hospitalist Assessment/Plan (1) JASMINA (acute kidney injury): (2) Hyperkalemia: (3) Metabolic acidosis: (4) Anemia: (5) Vapes nicotine containing substance: Plan Plan: - continue hemodialysis per nephrology - Extensive work up ordered by nephrology for vasculitis, lupus, and other etiologies of kidney injury. - plan for bone marrow biopsy on Wednesday at 11 am -QTc < 500 this am, continue home methadone dose - Nicotine patch and nicotine gum - Check labs daily. - DVT prophylaxis with heparin 5000 units subcutaneously every 12 hours. - Remain in ICU for hemodialysis due to need for isolation given history of Hep B positive Documented By: Jean Pierre Hassan MD 04/21/24 1320 Signed By: <Electronically signed by Jean Pierre Hassan MD> 04/21/242042 [facility] Work Phone: 1([phone]) 911-513802-21-2025 [place] [address] Hospitalist Progress Note Signed Patient: Ness Beaver MR#: [id number] 1230 : 1980 Acct:[id number] Age/Sex: 44 / M Adm Date: 5 Loc: Room: [address] [place] [address] Type: ADM IN Attending Dr: Jean Pierre Hassan MD Copies to: ~ Date of Service: 04/21/2024 Subjective Subjective Narrative: Admitted yesterday as transfer from [facility] for urgent hemodialysis, tolerating at present, nocomplaints. Confirmed admission H&P regarding substance use, methamphetamines last use 3 weeks ago, per H&P distant history ofinjection use. Exam Physical Exam Vital Signs: Temp Pulse Resp BP Pulse Ox O2 Del Method O2 Flow Rate 97.7 F 70 10 L 148/84 H 97 Room Air 1 04/21/24 12:00 04/21/24 13:00 04/21/24 12:00 04/21/24 13:00 04/21/24 12:00 04/21/24 12:00 04/21/24 10:08 Narrative: General: cooperative and comfortable Orientation: alert, awake and oriented x3 Head: normal to inspection Neck: normal visual inspection, dialysis catheter in R neck Cardio: no JVD, regular rate, regular rhythm Chest palpation & inspection: normal inspection of the chest Resp Effort & Inspection: normal respiratory effort Abd: soft, non-tender, non-distended Extremities: Warm well perfused, no edema Objective Lab Results 04/21/24 07:19 04/21/24 07:19 Meds Allergies and Active Meds Allergies No Known Allergies Allergy (Verified 11/29/23 08:52) Active Meds: Active Medications Generic Name Dose Route Start Last Admin Trade Name Freq PRN Reason Stop Dose Admin Acetaminophen 650 mg 04/20/24 17:07 04/21/24 04:27 Acetaminophen 325 Mg Tablet PO 04/20/25 17:06 650 mg Q4H PRN Administration Pain Scale 1 - 3 or fever Bisacodyl 10 mg 04/20/24 17:07 Bisacodyl 5 Mg Tablet.Dr PO 04/20/25 17:06 DAILY PRN Constipation Docusate Sodium 100 mg 04/20/24 21:00 04/21/24 08:03 Docusate 100 Mg Capsule PO 04/20/25 20:59 100 mg BID [facility] Administration Heparin Sodium (Porcine) 2,200 unit 04/20/24 15:58 04/21/24 10:28 Heparin 10,000 Unit/10 Ml Vial IV-PUSH 04/20/25 15:57 2,200 unit PRN PRN Administration Dialysis Heparin Sodium (Porcine) 5,000 unit 04/20/24 21:00 04/21/24 08:04 Heparin 5,000 Unit/Ml Vial SUBCUT 04/20/25 20:59 5,000 unit Q12HR [facility] Administration Heparin Sodium (Porcine) 2,000 unit 04/20/24 19:26 04/21/24 10:28 Heparin 10,000 Unit/10 Ml Vial IV 04/20/25 19:25 2,000 unit PRN PRN Administration Dialysis Heparin Sodium (Porcine) 1,000 unit 04/20/24 19:26 04/21/24 10:28 Heparin 10,000 Unit/10 Ml Vial IV 04/20/25 19:25 1,000 unit PRN PRN Administration Dialysis Sodium Chloride 1,000 mls @ 0 mls/hr 04/20/24 17:00 04/21/24 10:32 0.9% Sodium Chloride 1,000 Ml MISCELLANE 04/20/25 16:59 Infused .Q0M PRN Infusion Dialysis As Directed Methadone HCl 220 mg 04/20/24 20:45 04/21/24 09:42 Methadone 10 Mg/Ml Oral Concentrate PO 220 mg DAILY [facility] Administration Metoprolol Tartrate 5 mg 04/20/24 17:15 Metoprolol Tartrate 5 Mg/5 Ml Vial IV-PUSH 04/20/25 17:14 Q4H PRN Blood Pressure Nicotine 1 each 04/20/24 17:10 04/21/24 08:03 Nicotine Patch 14 Mg/24hr 1 Each Patch.Td24 TRANSDERML 05/03/24 09:01 1 each DAILY [facility] Administration Nicotine Polacrilex 2 mg 04/20/24 17:07 Nicotine Polacrilex 2 Mg Gum BUCCAL 04/20/25 17:06 Q2HR PRN Nicotine Cravings Polyethylene Glycol 17 gm 04/20/24 21:00 04/21/24 08:03 Polyethylene Glycol 3350 17 Gm Powd.Pack PO 04/20/25 20:59 17 gm BID [facility] Administration Prochlorperazine Edisylate 5 mg 04/20/24 17:15 04/21/24 08:30 Prochlorperazine Edisylate 10 Mg/2 Ml Vial IV-PUSH 04/20/25 17:14 5 mg Q4H PRN Administration Nausea OR Vomiting Sevelamer Carbonate 800 mg 04/21/24 12:00 04/21/24 13:11 Sevelamer Carbonate 800 Mg Tablet PO 04/21/25 11:59 800 mg TID.WITH.MEALS [facility] Administration Sodium Chloride 0 ml 04/20/24 17:00 04/21/24 10:29 Sodium Chloride 0.9 % 10 Ml Syringe IV-PUSH 04/20/25 16:59 40 ml PRN PRN Administration Flush Sodium Chloride 0 ml 04/20/24 17:07 04/20/24 19:29 Sodium Chloride 0.9 % 10 Ml Syringe IV-PUSH 04/20/25 17:06 60 ml PRN PRN Administration Flush A&P - Hospitalist Assessment/Plan (1) JASMINA (acute kidney injury): (2) Hyperkalemia: (3) Metabolic acidosis: (4) Anemia: (5) Vapes nicotine containing substance: Plan Plan: - continue hemodialysis per nephrology - Extensive work up ordered by nephrology for vasculitis, lupus, and other etiologies of kidney injury. - plan for bone marrow biopsy on Wednesday at 11 am -QTc < 500 this am, continue home methadone dose - Nicotine patch and nicotine gum - Check labs daily. - DVT prophylaxis with heparin 5000 units subcutaneously every 12 hours. - Remain in ICU for hemodialysis due to need for isolation given history of Hep B positive Documented By: Jean Pierre Hassan MD 04/21/24 1320 Signed By: 04/21/242042 [facility]02-21-2025 Progress note Author Ben Bravo [facility] Note Date/Time April 21, 2024 10:57am [facility] [address] [place] [address] Nephrology Progress Note Signed Patient: Ness Beaver MR#: [id number] 1230 : 1980 Acct:[id number] Age/Sex: 44 / M Adm Date: 5 Loc: Room: [address] [place] [address] Type: ADM IN Attending Dr: Timi Ferguson DO Copies to: ~ Date of Service: 04/21/2024 Subjective Subjective Narrative: This is a 44-year male with a medical history of hepatitis B and C, polysubstance abuse was presented to the [facility] for nausea and vomiting. On evaluation emergency room patient was found to have a acute kidneyinjury with elevated serum creatinine 20 mg/dL and BUN 176 mg/dL. He was also found to have a hyperkalemia with serum potassium 6.7 mmol/L and metabolic acidosis serum bicarbonate 14 mmol/L. Patient was found to have anemia with a hemoglobin 12.2 g/dL. His CK was 742. Patient has a history of polysubstance abuse and reported to use of meth and cocaine in the past. He is also follows with the methadone clinic. Patient was treated for hyperkalemia with calcium gluconate, insulin plus D50 and Lokelma. Patient was started on a bicarbonate drip. I was consulted by the [place] ER physician for emergent need of dialysis. Adequate and patient should be given sodium bicarbonate 100 mEq IV x 1 dose and also needs to be transferred for dialysis at the [facility]. Patient will need a further workup including kidney biopsy. Interim history Patient was seen and examined at bedside and case was discussed with the bedsideRN and the family. He is feeling better denies any chest pain palpitation coughnausea vomit diarrhea shortness of breath. He had a dialysis yesterday and tolerated well. Exam Physical Exam Vital Signs: Temp Pulse Resp BP Pulse Ox O2 Del Method O2 Flow Rate 98.2 F 80 16 145/84 H 96 Room Air 2 04/21/24 04:00 04/21/24 08:00 04/21/24 08:00 04/21/24 08:00 04/21/24 08:00 04/21/24 08:00 04/21/24 04:00 Narrative: General: Appears comfortable and not in distress Heart: S1-S2, no rub Lung: Bilateral air entry, no wheezing or crackles Abdomen: Soft, positive bowel sounds Extremities: No edema, no cyanosis Head: Atraumatic, normocephalic Ear: No gross hearing Deficit or external ear redness Eyes: No pallor or redness Neck: No JVD or visible mass Skin: No rashes , warm to touch [employer]: Awake,Alert, following simple command Musculoskeletal: No swelling or limitation of movement of the large joints Psychiatric: Cooperative, normal mood and affect Objective Intake and Output I&O: Intake & Output 04/18/24 04/19/24 04/20/24 04/21/24 23:59 23:59 23:59 23:59 Intake Total 1500 / 1500 750 / 750 Output Total 852 / 852 300 / 300 Balance 648 / 648 450 / 450 Weight 69.6 kg 70.7 kg Meds and Allergies Meds: Active Medications Acetaminophen (Acetaminophen 325 Mg Tablet) 650 mg PO Q4H PRN PRN Reason: Pain Scale 1 - 3 or fever Stop: 04/20/25 17:06 Last Admin: 04/21/24 04:27 Dose: 650 mg Bisacodyl (Bisacodyl 5 Mg Tablet.Dr) 10 mg PO DAILY PRN PRN Reason: Constipation Stop: 04/20/25 17:06 Docusate Sodium (Docusate 100 Mg Capsule) 100 mg PO BID [facility] Stop: 04/20/25 20:59 Last Admin: 04/21/24 08:03 Dose: 100 mg Heparin Sodium (Porcine) (Heparin 10,000 Unit/10 Ml Vial) 2,200 unit IV-PUSH PRN PRN PRN Reason: Dialysis Stop: 04/20/25 15:57 Last Admin: 04/21/24 10:28 Dose: 2,200 unit Heparin Sodium (Porcine) (Heparin 5,000 Unit/Ml Vial) 5,000 unit SUBCUT Q12HR [facility] Stop: 04/20/25 20:59 Last Admin: 04/21/24 08:04 Dose: 5,000 unit Heparin Sodium (Porcine) (Heparin 10,000 Unit/10 Ml Vial) 2,000 unit IV PRN PRN PRN Reason: Dialysis Stop: 04/20/25 19:25 Last Admin: 04/21/24 10:28 Dose: 2,000 unit Heparin Sodium (Porcine) (Heparin 10,000 Unit/10 Ml Vial) 1,000 unit IV PRN PRN PRN Reason: Dialysis Stop: 04/20/25 19:25 Last Admin: 04/21/24 10:28 Dose: 1,000 unit Sodium Chloride (0.9% Sodium Chloride 1,000 Ml) 1,000 mls @ 0 mls/hr MISCELLANE.Q0M PRN PRN Reason: Dialysis Stop: 04/20/25 16:59 Last Infusion: 04/21/24 10:32 Dose: Infused Methadone HCl (Methadone 10 Mg/Ml Oral Concentrate) 220 mg PO DAILY [facility] Last Admin: 04/21/24 09:42 Dose: 220 mg Metoprolol Tartrate (Metoprolol Tartrate 5 Mg/5 Ml Vial) 5 mg IV-PUSH Q4H PRN PRN Reason: Blood Pressure Stop: 04/20/25 17:14 Nicotine (Nicotine Patch 14 Mg/24hr 1 Each Patch.Td24) 1 each TRANSDERML DAILY [facility] Stop: 05/03/24 09:01 Last Admin: 04/21/24 08:03 Dose: 1 each Nicotine Polacrilex (Nicotine Polacrilex 2 Mg Gum) 2 mg BUCCAL Q2HR PRN PRN Reason: Nicotine Cravings Stop: 04/20/25 17:06 Polyethylene Glycol (Polyethylene Glycol 3350 17 Gm Powd.Pack) 17 gm PO BID [facility] Stop: 04/20/25 20:59 Last Admin: 04/21/24 08:03 Dose: 17 gm Prochlorperazine Edisylate (Prochlorperazine Edisylate 10 Mg/2 Ml Vial) 5 mg IV- PUSH Q4H PRN PRN Reason: Nausea OR Vomiting Stop: 04/20/25 17:14 Last Admin: 04/21/24 08:30 Dose: 5 mg Sevelamer Carbonate (Sevelamer Carbonate 800 Mg Tablet) 800 mg PO TID.WITH.MEALS [facility] Stop: 04/21/25 11:59 Sodium Chloride (Sodium Chloride 0.9 % 10 Ml Syringe) 0 ml IV-PUSH PRN PRN PRN Reason: Flush Stop: 04/20/25 16:59 Last Admin: 04/21/24 10:29 Dose: 40 ml Sodium Chloride (Sodium Chloride 0.9 % 10 Ml Syringe) 0 ml IV-PUSH PRN PRN PRN Reason: Flush Stop: 04/20/25 17:06 Last Admin: 04/20/24 19:29 Dose: 60 ml Allergies No Known Allergies Allergy (Verified 11/29/23 08:52) Results - Nephrology Labs 04/21/24 07:19 04/21/24 07:19 Labs: 04/20/24 04/21/24 04/21/24 18:10 04:30 07:19 BUN 134 H 97 H D Creatinine 14.86 H 13.13 H D Phosphorus 6.1 H 8.8 H Albumin 3.4 L 3.3 L Urine Color Colorless Urine Appearance Clear Urine pH 6.5 Ur Specific [place] 1.008 Urine Protein Trace H Urine Glucose (UA) Normal Urine Ketones Negative Urine Occult Blood 2+ H Urine Nitrite Negative Ur Leukocyte Esterase 4+ H Urine RBC 10-19 H Urine WBC 20-49 H Urine Bacteria Rare Radiology Impressions Impressions - last 24 hours: Impressions Chest X-Ray 04/20/24 16:28 IMPRESSION: There is a right IJ line with the tip in the superior vena cava. No pneumothorax. Impression dictated by: Emery Steinberg M.D.04/20/2024 4:47 PM Dictation Location: [id number] Any impression(s) listed above is documentation that was entered by the reading physician into a diagnostic report(s) for Ness Beaver. I have reviewedthe report(s) and am incorporating any findings in the treatment plan of this patient where applicable. A&P - Nephrology Assessment/Plan (1) JASMINA (acute kidney injury): Assessment/Problem Details: Patient is a JASMINA due to unclear etiology. Differential diagnoses are RPGN, AIN or ATN. Patient has no evidence of obstructive uropathy on CAT scan. (2) Hyperkalemia: Assessment/Problem Details: He has hyperkalemia due to the JASMINA and metabolic acidosis. (3) Metabolic acidosis: Assessment/Problem Details: He has metabolic acidosis likely due to the JASMINA. (4) Hepatitis C: Assessment/Problem Details: Patient has a known history of hepatitis C. (5) Anemia: Assessment/Problem Details: He has a anemia due to the unclear etiology. Differential diagnoses hemolytic anemia, iron deficiency, B12 or folate deficiency or paraproteinemia. Plan * Hemodialysis today as ordered. * Will order the workup for RPGN including ANCA, serum cryoglobulin, anti-GBM, lupus and paraproteinemia. * Kidney biopsy scheduled for Wednesday.. * Check renal function daily and monitor input output * Will check iron studies, B12, folate level, LDH, haptoglobin and peripheral smear Documented By: Ben Bravo MD 04/21/24 1047 Signed By: <Electronically signed by Ben rBavo MD> 04/21/24 1057 [facility] Work Phone: 1(158) 988-187102-21-2025 [place] [address] Nephrology Progress Note Signed Patient: Ness Beaver MR#: [id number] 1230 : 1980 Acct:[id number] Age/Sex: 44 / M Adm Date: 5 Loc: Room: [address] [place] [address] Type: ADM IN Attending Dr: Timi Ferguson DO Copies to: ~ Date of Service: 04/21/2024 Subjective Subjective Narrative: This is a 44-year male with a medical history of hepatitis B and C, polysubstance abuse was presented to the [facility] for nausea and vomiting. On evaluation emergency room patient was found to have a acute kidneyinjury with elevated serum creatinine 20 mg/dL and BUN 176 mg/dL. He was also found to have a hyperkalemia with serum potassium 6.7 mmol/L and metabolic acidosis serum bicarbonate 14 mmol/L. Patient was found to have anemia with a hemoglobin 12.2 g/dL. His CK was 742. Patient has a history of polysubstance abuse and reported to use of meth and cocaine in the past. He is also follows with the methadone clinic. Patient was treated for hyperkalemia with calcium gluconate, insulin plus D50 and Lokelma. Patient was started on a bicarbonate drip. I was consulted by the General acute hospital physician for emergent need of dialysis. Adequate and patient should be given sodium [id number] mEq IV x 1 dose and also needs to be transferred for dialysis at the [facility]. Patient will need a further workup including kidney biopsy. Interim history Patient was seen and examined at bedside and case was discussed with the bedsideRN and the family. He is feeling better denies any chest pain palpitation coughnausea vomit diarrhea shortness of breath. He had a dialysis yesterday and tolerated well. Exam Physical Exam Vital Signs: Temp Pulse Resp BP Pulse Ox O2 Del Method O2 Flow Rate 98.2 F 80 16 145/84 H 96 Room Air 2 04/21/24 04:00 04/21/24 08:00 04/21/24 08:00 04/21/24 08:00 04/21/24 08:00 04/21/24 08:00 04/21/24 04:00 Narrative: General: Appears comfortable and not in distress Heart: S1-S2, no rub Lung: Bilateral air entry, no wheezing or crackles Abdomen: Soft, positive bowel sounds Extremities: No edema, no cyanosis Head: Atraumatic, normocephalic Ear: No gross hearing Deficit or external ear redness Eyes: No pallor or redness Neck: No JVD or visible mass Skin: No rashes , warm to touch [employer]: Awake,Alert, following simple command Musculoskeletal: No swelling or limitation of movement of the large joints Psychiatric: Cooperative, normal mood and affect Objective Intake and Output I&O: Intake & Output 04/18/24 04/19/24 04/20/24 04/21/24 23:59 23:59 23:59 23:59 Intake Total 1500 / 1500 750 / 750 Output Total 852 / 852 300 / 300 Balance 648 / 648 450 / 450 Weight 69.6 kg 70.7 kg Meds and Allergies Meds: Active Medications Acetaminophen (Acetaminophen 325 Mg Tablet) 650 mg PO Q4H PRN PRN Reason: Pain Scale 1 - 3 or fever Stop: 04/20/25 17:06 Last Admin: 04/21/24 04:27 Dose: 650 mg Bisacodyl (Bisacodyl 5 Mg Tablet.Dr) 10 mg PO DAILY PRN PRN Reason: Constipation Stop: 04/20/25 17:06 Docusate Sodium (Docusate 100 Mg Capsule) 100 mg PO BID [facility] Stop: 04/20/25 20:59 Last Admin: 04/21/24 08:03 Dose: 100 mg Heparin Sodium (Porcine) (Heparin 10,000 Unit/10 Ml Vial) 2,200 unit IV-PUSH PRN PRN PRN Reason: Dialysis Stop: 04/20/25 15:57 Last Admin: 04/21/24 10:28 Dose: 2,200 unit Heparin Sodium (Porcine) (Heparin 5,000 Unit/Ml Vial) 5,000 unit SUBCUT Q12HR [facility] Stop: 04/20/25 20:59 Last Admin: 04/21/24 08:04 Dose: 5,000 unit Heparin Sodium (Porcine) (Heparin 10,000 Unit/10 Ml Vial) 2,000 unit IV PRN PRN PRN Reason: Dialysis Stop: 04/20/25 19:25 Last Admin: 04/21/24 10:28 Dose: 2,000 unit Heparin Sodium (Porcine) (Heparin 10,000 Unit/10 Ml Vial) 1,000 unit IV PRN PRN PRN Reason: Dialysis Stop: 04/20/25 19:25 Last Admin: 04/21/24 10:28 Dose: 1,000 unit Sodium Chloride (0.9% Sodium Chloride 1,000 Ml) 1,000 mls @ 0 mls/hr MISCELLANE.Q0M PRN PRN Reason: Dialysis Stop: 04/20/25 16:59 Last Infusion: 04/21/24 10:32 Dose: Infused Methadone HCl (Methadone 10 Mg/Ml Oral Concentrate) 220 mg PO DAILY [facility] Last Admin: 04/21/24 09:42 Dose: 220 mg Metoprolol Tartrate (Metoprolol Tartrate 5 Mg/5 Ml Vial) 5 mg IV-PUSH Q4H PRN PRN Reason: Blood Pressure Stop: 04/20/25 17:14 Nicotine (Nicotine Patch 14 Mg/24hr 1 Each Patch.Td24) 1 each TRANSDERML DAILY [facility] Stop: 05/03/24 09:01 Last Admin: 04/21/24 08:03 Dose: 1 each Nicotine Polacrilex (Nicotine Polacrilex 2 Mg Gum) 2 mg BUCCAL Q2HR PRN PRN Reason: Nicotine Cravings Stop: 04/20/25 17:06 Polyethylene Glycol (Polyethylene Glycol 3350 17 Gm Powd.Pack) 17 gm PO BID [facility] Stop: 04/20/25 20:59 Last Admin: 04/21/24 08:03 Dose: 17 gm Prochlorperazine Edisylate (Prochlorperazine Edisylate 10 Mg/2 Ml Vial) 5 mg IV- PUSH Q4H PRN PRN Reason: Nausea OR Vomiting Stop: 04/20/25 17:14 Last Admin: 04/21/24 08:30 Dose: 5 mg Sevelamer Carbonate (Sevelamer Carbonate 800 Mg Tablet) 800 mg PO TID.WITH.MEALS [facility] Stop: 04/21/25 11:59 Sodium Chloride (Sodium Chloride 0.9 % 10 Ml Syringe) 0 ml IV-PUSH PRN PRN PRN Reason: Flush Stop: 04/20/25 16:59 Last Admin: 04/21/24 10:29 Dose: 40 ml Sodium Chloride (Sodium Chloride 0.9 % 10 Ml Syringe) 0 ml IV-PUSH PRN PRN PRN Reason: Flush Stop: 04/20/25 17:06 Last Admin: 04/20/24 19:29 Dose: 60 ml Allergies No Known Allergies Allergy (Verified 11/29/23 08:52) Results - Nephrology Labs 04/21/24 07:19 04/21/24 07:19 Labs: 04/20/24 04/21/24 04/21/24 18:10 04:30 07:19 BUN 134 H 97 H D Creatinine 14.86 H 13.13 H D Phosphorus 6.1 H 8.8 H Albumin 3.4 L 3.3 L Urine Color Colorless Urine Appearance Clear Urine pH 6.5 Ur Specific [place] 1.008 Urine Protein Trace H Urine Glucose (UA) Normal Urine Ketones Negative Urine Occult Blood 2+ H Urine Nitrite Negative Ur Leukocyte Esterase 4+ H Urine RBC 10-19 H Urine WBC 20-49 H Urine Bacteria Rare Radiology Impressions Impressions - last 24 hours: Impressions Chest X-Ray 04/20/24 16:28 IMPRESSION: There is a right IJ line with the tip in the superior vena cava. No pneumothorax. Impression dictated by: Emery Steinberg M.D.04/20/2024 4:47 PM Dictation Location: [place] [address] Any impression(s) listed above is documentation that was entered by the reading physician into a diagnostic report(s) for Ness Beaver. I have reviewedthe report(s) and am incorporating any findings in the treatment plan of this patient where applicable. A&P - Nephrology Assessment/Plan (1) JASMINA (acute kidney injury): Assessment/Problem Details: Patient is a JASMINA due to unclear etiology. Differential diagnoses are RPGN, AIN or ATN. Patient has no evidence of obstructive uropathy on CAT scan. (2) Hyperkalemia: Assessment/Problem Details: He has hyperkalemia due to the JASMINA and metabolic acidosis. (3) Metabolic acidosis: Assessment/Problem Details: He has metabolic acidosis likely due to the JASMINA. (4) Hepatitis C: Assessment/Problem Details: Patient has a known history of hepatitis C. (5) Anemia: Assessment/Problem Details: He has a anemia due to the unclear etiology. Differential diagnoses hemolytic anemia, iron deficiency, B12 or folate deficiency or paraproteinemia. Plan * Hemodialysis today as ordered. * Will order the workup for RPGN including ANCA, serum cryoglobulin, anti-GBM, lupus and paraproteinemia. * Kidney biopsy scheduled for Wednesday.. * Check renal function daily and monitor input output * Will check iron studies, B12, folate level, LDH, haptoglobin and peripheral smear Documented By: Ben Bravo MD 04/21/24 1047 Signed By: 04/21/24 1057 [facility]02-20-2025 History and physical note Author Timi Ferguson [facility] Note Date/Time April 20, 2024 5:24pm [facility] [address] [place] [address] Hospitalist H&P Signed Patient: Ness Beaver MR#: [id number] 1230 : 1980 Acct:[id number] Age/Sex: 44 / M Adm Date: 5 Loc: Room: 1A4407-7 Type: ADM IN Attending Dr: Timi Ferguson DO Copies to: Asiya Boyd APRN, TECHNOLOGY TEACHER Timi Ferguson, ~ HPI DATE OF EXAMINATION: 04/20/24 CHIEF COMPLAINT: Acute Kidney Injury. HISTORY OF PRESENT ILLNESS: This patient is seen in rapid fashion to facilitate his admission the hospital and get him on emergent hemodialysis so some details of this history and physical may be lacking. This is a 44-year-old man who presented to an outside hospital due to nausea andvomiting and was found to have a serum creatinine of 20, BUN of 170, and a potassium critically high at 6.7. Reports indicate that a CT scan of his abdomen pelvis was done there that showed no hydronephrosis. Pulmonology critical care was contacted to make sure that a dialysis catheter can be placed rapidly and nephrology was contacted to facilitate emergency hemodialysis. When I see the patient he has just gotten the internal jugular Jose catheter to initiate hemodialysis. 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 Heused to inject drugs but he knew that that was unsafe so he switched to snortingit and then he was clean for a while. He does go to a methadone clinic here in [facility]. 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 The patient says I got really dehydrated and now my kidneys are in trouble. The patient mentions that in the past a fewyears ago he was abusing methamphetamines and landed at [facility] in [place] and was told that he had kidney failure, but he obviously must not of needed hemodialysis at that time. Otherwise the patient does not know of any chronic medical conditions. Other than methadone he does not take any routine medications. Social history: He does admit to using vaping for nicotine and occasional THC. He denies injection of drugs recently. He denies drinking alcohol. He specifically denies cocaine when I ask him about this. Family history: He does not seem to have any family history of renal problems. Review of Systems Review of Systems Review of systems: 10 systems are reviewed and are negative except as mentioned elsewhere in the documentation. [facility] Medical History H/O intravenous drug use Hepatitis C Surgical History History of tonsillectomy and adenoidectomy Family History Family/Other Colon cancer Social History Smoking Status: Current every day smoker Tobacco Type: e-cigarettes Substance Use Type: Methamphetamine Substance Abuse Comment: suboxone Meds Medications and Allergies Allergies No Known Allergies Allergy (Verified 11/29/23 08:52) Home Medications methadone 10 mg/mL oral concentrate 220 mg PO DAILY 11/24/23 [History Confirmed 04/20/24] Exam Physical Exam Vital Signs: Temp Pulse Resp BP Pulse Ox O2 Del Method 97.6 F 89 14 169/93 H 96 Room Air 04/20/24 15:55 04/20/24 16:55 04/20/24 16:55 04/20/24 16:55 04/20/24 16:55 04/20/24 16:55 Narrative: GEN: Awake, alert, oriented x 3. Head: Normal Cephalic, Atraumatic. Eyes: Conjunctiva and sclera clear bilaterally. Nose: External nose and nares normal bilaterally. Mouth: Lips and tongue normal. Neck: Jose catheter style dialysis catheter recently placed in the right internal jugular position. Lungs: Clear to auscultation bilaterally, no wheezing, no crackles. Heart: Regular rate and rhythm, no murmurs, rubs, or gallops. Abdomen: Soft, normal bowel sounds, no rigidity, guarding, or acute peritoneal signs. Extremities: No swelling or cords in the calves bilaterally, no edema in the ankles bilaterally. Skin: No systemic rashes or lesions. Psychiatric: Calm. Conversant. Cooperative. Neuro: Moves both arms well and seems to move both legs well so I detect no focal or lateralizing deficits. Assessment & Plan Assessment/Plan (1) JASMINA (acute kidney injury): (2) Hyperkalemia: (3) Metabolic acidosis: (4) Anemia: (5) Vapes nicotine containing substance: Plan Plan: Pulmonology did place the temporary hemodialysis catheter. Nephrology is here to start emergency hemodialysis. I did discuss the case in brief with nephrology with Dr. Bravo. The patient will have emergency hemodialysis tonight and then daily depending onprogress. The patient will have testing for variety of problems including a vasculitis, lupus, and other etiologies of kidney injury. Once his home methadone dose is confirmed, I am okay with him taking the same methadone that he takes at home. Patient mentioned that he is constipated so I ordered a bowel regimen for him. Check EKG now and tomorrow to make sure he does not have QT prolongation on thismethadone. Nicotine patch and nicotine gum are okay to use in the setting because I do not want him to they appear in the hospital. Check labs daily. DVT prophylaxis with heparin 5000 units subcutaneously every 12 hours. IP vs OBS Justification Based on differential dx, clinical care plan, and risk of adverse events, if untreated, in my clinical judgement this patient requires an acute care setting as: INPATIENT because of an expectation of an over 2 midnight stay. Estimated length of stay (# of days): 5 Documented By: Timi Ferguson DO 1715 Signed By: <Electronically signed by Timi Ferguson DO> 04/20/24 1724 [facility] Work Phone: 1(474) 719-210502-20-2025 Consult note Author Ben Bravo [facility] Note Date/Time April 20, 2024 5:22pm [facility] [address] [place] [address] Nephrology Consult Note Signed Patient: Ness Beaver MR#: [id number] 1230 : 1980 Acct:[id number] Age/Sex: 44 / M Adm Date: 5 Loc: Room: [address] [place] [address] Type: ADM IN Attending Dr: Timi Ferguson DO Copies to: MD Asiya Gonzalez, SILICA MIXER OPERATOR, TECHNOLOGY TEACHER Timi Ferguson DO~ Providers Consult Date: 04/20/24 Requesting Provider: Timi Ferguson DO Primary Care Provider: Asiya Boyd APRN, POLYGRAPH TECHNICIAN-C HPI Reason for Consult: JASMINA, hyperkalemia and metabolic acidosis management History of Present Illness: This is a 44-year male with a medical history of hepatitis B and C, polysubstance abuse was presented to the [facility] for nausea and vomiting. On evaluation emergency room patient was found to have a acute kidneyinjury with elevated serum creatinine 20 mg/dL and BUN 176 mg/dL. He was also found to have a hyperkalemia with serum potassium 6.7 mmol/L and metabolic acidosis serum bicarbonate 14 mmol/L. Patient was found to have anemia with a hemoglobin 12.2 g/dL. His CK was 742. Patient has a history of polysubstance abuse and reported to use of meth and cocaine in the past. He is also follows with the methadone clinic. Patient was treated for hyperkalemia with calcium gluconate, insulin plus D50 and Lokelma. Patient was started on a bicarbonate drip. I was consulted by the [place] ER physician for emergent need of dialysis. Adequate and patient should be given sodium bicarbonate 100 mEq IV x 1dose and also needs to be transferred for dialysis at the [facility]. Patient will need a further workup including kidney biopsy. Patient was seen and examined bedside reported that he is feeling nauseous for last few days also reported to have a metallic taste and poor appetite. Family and patient also reported to have myoclonic jerking movements for last few days. Review of Systems Review of Systems All other systems reviewed & are negative unless noted below or in HPI Review of systems: Cardiovascular: denies any chest pain, palpitation Pulmonary: denies any cough, hemoptysis Gastrointestinal: See HPI Neurological :denies any headache, numbness, weakness Endocrine: denies any polyuria, polydipsia Dermatological: denies any itching or rash [facility] Medical History (Updated 04/20/24 @ 17:17 by Ben Bravo MD) H/O intravenous drug use Hepatitis C Surgical History History of tonsillectomy and adenoidectomy Family History Family/Other Colon cancer Social History Smoking Status: Current every day smoker Tobacco Type: e-cigarettes Substance Use Type: Methamphetamine Substance Abuse Comment: suboxone Meds Medications & Allergies Allergies No Known Allergies Allergy (Verified 11/29/23 08:52) Home Medications methadone 10 mg/mL oral concentrate 220 mg PO DAILY 11/24/23 [History Confirmed 04/20/24] Active Medications: Active Medications Heparin Sodium (Porcine) (Heparin 10,000 Unit/10 Ml Vial) 2,200 unit IV-PUSH PRN PRN PRN Reason: Dialysis Stop: 04/20/25 15:57 Last Admin: 04/20/24 16:57 Dose: 2,200 unit Exam Physical Exam Vital Signs: Temp Pulse Resp BP Pulse Ox O2 Del Method 97.6 F 89 14 169/93 H 96 Room Air 04/20/24 15:55 04/20/24 16:55 04/20/24 16:55 04/20/24 16:55 04/20/24 16:55 04/20/24 16:55 Narrative: General: Appears comfortable and not in distress Heart: S1-S2, no rub Lung: Bilateral air entry, no wheezing or crackles Abdomen: Soft, positive bowel sounds Extremities: No edema, no cyanosis Head: Atraumatic, normocephalic Ear: No gross hearing Deficit or external ear redness Eyes: No pallor or redness Neck: No JVD or visible mass Skin: No rashes , warm to touch CUSTOMER SERVICE SALES ASSOCIATE: Awake,Alert, following simple command Musculoskeletal: No swelling or limitation of movement of the large joints Psychiatric: Cooperative, normal mood and affect Results - Nephrology Radiology Impressions Impressions - last 24 hours: Impressions Chest X-Ray 04/20/24 16:28 IMPRESSION: There is a right IJ line with the tip in the superior vena cava. No pneumothorax. Impression dictated by: Emery Steinberg M.D.04/20/2024 4:47 PM Dictation Location: [place] [address] Any impression(s) listed above is documentation that was entered by the reading physician into a diagnostic report(s) for Ness Beaver. I have reviewedthe report(s) and am incorporating any findings in the treatment plan of this patient where applicable. A&P - Nephrology Assessment/Plan (1) JASMINA (acute kidney injury): Assessment/Problem Details: Patient is a JASMINA due to unclear etiology. Differential diagnoses are RPGN, AIN or ATN. Patient has no evidence of obstructive uropathy on CAT scan. (2) Hyperkalemia: Assessment/Problem Details: He has hyperkalemia due to the JASMINA and metabolic acidosis. (3) Metabolic acidosis: Assessment/Problem Details: He has metabolic acidosis likely due to the JASMINA. (4) Hepatitis C: Assessment/Problem Details: Patient has a known history of hepatitis C. (5) Anemia: Assessment/Problem Details: He has a anemia possibly due to the JASMINA. Other diffuse diagnoses are paraproteinemia or GI losses. Plan * I discussed with the patient and the family to initiate urgent hemodialysis due to the hyperkalemia and uremia. Patient and family agrees for it. Patient consented for it. He was started on hemodialysis after temporary dialysis catheter placement by metrology manager Dr. Sawyer. * Will order the workup for RPGN including ANCA, hepatitis C induced MPGN, anti- GBM, lupus and paraproteinemia. * I also explained to the patient and the family that he will need a kidney biopsy for definitive diagnosis. Patient consented for it. Will consult IR for kidney biopsy. * Will hold the further fluid resuscitation. * Check renal function daily and monitor input output * Thanks for consult. Will continue follow-up with you. Please feel free to call us with any question. Documented By: Ben Bravo MD 04/20/241699 Signed By: <Electronically signed by Ben Bravo MD> 04/20/24 1722 [facility] Work Phone: 1(301) 301-979102-20-2025 Evaluation note* Diagnosis Onset Date Resolution Status Admit Date JASMINA (acute kidney injury) acute April 20, 2024 3:46pm Anemia acute April 20, 2024 3:46pm Hepatitis C acute April 3:46pm Hyperkalemia acute April 3:46pm Metabolic acidosis acute 2024 3:46pm Vapes nicotine containing substance acute April 20, 025 3:46pm [facility] Work Phone: 1(721) 491-609402-20-2025 Evaluation note* Diagnosis Onset Date Resolution Status Admit Date JASMINA (acute kidney injury) resolved April 20, 2024 3:46pm Anemia resolved April 20, 2024 3:46pm Hepatitis C resolved April 3:46pm Hyperkalemia resolved April 3:46pm Metabolic acidosis resolved 2024 3:46pm Vapes nicotine containing substance resolved April 20 025 3:46pm DVT of upper extremity (deep vein thrombosis) acute May 01, 2024 11:12am History of drug abuse acute [facility] 2024 11:12am [facility] Work Phone: [phone]) 689-510402-20-2025 Evaluation note* Diagnosis Onset Date Resolution Status Admit Date JASMINA (acute kidney injury) resolved April 20, 2024 3:46pm Anemia resolved April 20, 2024 3:46pm Hepatitis C resolved April 3:46pm Hyperkalemia resolved April 3:46pm Metabolic acidosis resolved 2024 3:46pm Vapes nicotine containing substance resolved April 20 025 3:46pm DVT of upper extremity (deep vein thrombosis) acute May 01, 2024 11:12am History of drug abuse acute [facility] 2024 11:12am Influenza A acute May 01 11:12am Pneumonia acute May 01 11:12am JASMINA (acute kidney injury) resolved May 01, 2024 11:12am Vapes nicotine containing substance resolved May 01, 2024 11:12am [facility] Work Phone: 1([phone]) 280-675702-20-2025 [place] [address] Hospitalist H&P Signed Patient: Ness Beaver MR#: [id number] 1230 : 1980 Acct:[id number] Age/Sex: 44 / M Adm Date: 5 Loc: Room: [address] [place] [address] Type: ADM IN Attending Dr: Timi Ferguson DO Copies to: Asiya Boyd APRN, TECHNOLOGY TEACHER Timi Ferguson DO~ HPI DATE OF EXAMINATION: 04/20/24 CHIEF COMPLAINT: Acute Kidney Injury. HISTORY OF PRESENT ILLNESS: This patient is seen in rapid fashion to facilitate his admission the hospital and get him on emergent hemodialysis so some details of this history and physical may be lacking. This is a 44-year-old man who presented to an outside hospital due to nausea andvomiting and was found to have a serum creatinine of 20, BUN of 170, and a potassium critically high at 6.7. Reports indicate that a CT scan of his abdomen pelvis was done there that showed no hydronephrosis. Pulmonology critical care was contacted to make sure that a dialysis catheter can be placed rapidly and nephrology was contacted to facilitate emergency hemodialysis. When I see the patient he has just gotten the internal jugular Jose catheter to initiate hemodialysis. 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 Heused to inject drugsbut he knew that that was unsafe so he switched to snortingit and then he was clean for a while. Kathleen go to a methadone clinic here in [facility]. 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 The patient says I got really dehydrated and now my kidneys are in trouble. The patient mentions that in the past a fewyears ago he was abusing methamphetamines and landed at [facility] in [place] and was told that he had kidney failure, but he obviously mustnot of needed hemodialysis at that time. Otherwise the patient does not know of any chronic medical conditions. Other than methadone he doesnot take any routine medications. Social history: He does admit to using vaping for nicotine and occasional THC. He denies injection of drugs recently. He denies drinking alcohol. He specifically denies cocaine when I ask him about this. Family history: He does not seem to have any family history of renal problems. Review of Systems Review of Systems Review of systems: 10 systems are reviewed and are negative except as mentioned elsewhere in the documentation. [facility] Medical History H/O intravenous drug use Hepatitis C Surgical History History of tonsillectomy and adenoidectomy Family History Family/Other Colon cancer Social History Smoking Status: Current every day smoker Tobacco Type: e-cigarettes Substance Use Type: Methamphetamine Substance Abuse Comment: suboxone Meds Medications and Allergies Allergies No Known Allergies Allergy (Verified 11/29/23 08:52) Home Medications methadone 10 mg/mL oral concentrate 220 mg PO DAILY 11/24/23 [History Confirmed 04/20/24] Exam Physical Exam Vital Signs: Temp Pulse Resp BP Pulse Ox O2 Del Method 97.6 F 89 14 169/93 H 96 Room Air 04/20/24 15:55 04/20/24 16:55 04/20/24 16:55 04/20/24 16:55 04/20/24 16:55 04/20/24 16:55 Narrative: GEN: Awake, alert, oriented x 3. Head: Normal Cephalic, Atraumatic. Eyes: Conjunctiva and sclera clear bilaterally. Nose: External nose and nares normal bilaterally. Mouth: Lips and tongue normal. Neck: Jose catheter style dialysis catheter recently placed in the right internal jugular position. Lungs: Clear to auscultation bilaterally, no wheezing, no crackles. Heart: Regular rate and rhythm, no murmurs, rubs, or gallops. Abdomen: Soft, normal bowel sounds, no rigidity, guarding, or acute peritoneal signs. Extremities: No swelling or cords in the calves bilaterally, no edema in the ankles bilaterally. Skin: No systemic rashes or lesions. Psychiatric: Calm. Conversant. Cooperative. Neuro: Moves both arms well and seems to move both legs well so I detect no focal or lateralizing deficits. Assessment & Plan Assessment/Plan (1) JASMINA (acute kidney injury): (2) Hyperkalemia: (3) Metabolic acidosis: (4) Anemia: (5) Vapes nicotine containing substance: Plan Plan: Pulmonology did place the temporary hemodialysis catheter. Nephrology is here to start emergency hemodialysis. I did discuss the case in brief with nephrologywith Dr. Bravo. The patient will have emergency hemodialysis tonight and then daily depending onprogress. The patient will have testing for variety of problems including a vasculitis, lupus, and other etiologies of kidney injury. Once his home methadone dose is confirmed, I am okay with him taking the same methadone that he takes at home. Patient mentioned that he is constipated so I ordered a bowel regimen for him. Check EKG now and tomorrow to make sure he does not have QT prolongation on thismethadone. Nicotine patch and nicotine gum are okay to use in the setting because I do not want him to they appear in the hospital. Check labs daily. DVT prophylaxis with heparin 5000 units subcutaneously every 12 hours. IP vs OBS Justification Based on differential dx, clinical care plan, and risk of adverse events, if untreated, in my clinical judgement this patient requires an acute care setting as: INPATIENT because of an expectation ofan over 2 midnight stay. Estimated length of stay (# of days): 5 Documented By: Timi Ferguson DO 6 Signed By: 04/20/24 1724 [facility] [facility]2025 [place] [address] Nephrology Consult Note Signed Patient: Ness Beaver MR#: [id number] 1230 : 1980 Acct:[id number] Age/Sex: 44 / M Adm Date: 5 Loc: Room: [address] [place] [address] Type: ADM IN Attending Dr: Timi Ferguson DO Copies to: MD Asiya Gonzalez APRN, TECHNOLOGY TEACHER Timi Ferguson DO~ Providers Consult Date: 04/20/24 Requesting Provider: Timi Ferguson DO Primary Care Provider: Asiya Boyd APRN, POLYGRAPH TECHNICIAN-C HPI Reason for Consult: JASMINA, hyperkalemia and metabolic acidosis management History of Present Illness: This is a 44-year male with a medical history of hepatitis B and C, polysubstance abuse was presented to the [facility] for nausea and vomiting. On evaluation emergency room patient was found to have a acute kidneyinjury with elevated serum creatinine 20 mg/dL and BUN 176 mg/dL. He was also found to have a hyperkalemia with serum potassium 6.7 mmol/L and metabolic acidosis serum bicarbonate 14 mmol/L. Patient was found to have anemia with a hemoglobin 12.2 g/dL. His CK was 742. Patient has a history of polysubstance abuse and reported to use of meth and cocaine in the past. He is also follows with the methadone clinic. Patient was treated for hyperkalemia with calcium gluconate, insulin plus D50 and Lokelma. Patient was started on a bicarbonate drip. I was consulted by the General acute hospital physician for emergent need of dialysis. Adequate and patient should be given sodium [id number] mEq IV x 1dose and also needs to be transferred for dialysis at the [facility]. Patient will need a further workup including kidney biopsy. Patient was seen and examined bedside reported that he is feeling nauseous for last few days also reported to have a metallic taste and poor appetite. Family and patient also reported to have myoclonic jerking movements for last fewdays. Review of Systems Review of Systems All other systems reviewed & are negative unless noted below or in HPI Review of systems: Cardiovascular: denies any chest pain, palpitation Pulmonary: denies any cough, hemoptysis Gastrointestinal: See HPI Neurological :denies any headache, numbness, weakness Endocrine: denies any polyuria, polydipsia Dermatological: denies any itching or rash [facility] Medical History (Updated 04/20/24 @ 17:17 by Ben Bravo MD) H/O intravenous drug use Hepatitis C Surgical History History of tonsillectomy and adenoidectomy Family History Family/Other Colon cancer Social History Smoking Status: Current every day smoker Tobacco Type: e-cigarettes Substance Use Type: Methamphetamine Substance Abuse Comment: suboxone Meds Medications & Allergies Allergies No Known Allergies Allergy (Verified 11/29/23 08:52) Home Medications methadone 10 mg/mL oral concentrate 220 mg PO DAILY 11/24/23 [History Confirmed 04/20/24] Active Medications: Active Medications Heparin Sodium (Porcine) (Heparin 10,000 Unit/10 Ml Vial) 2,200 unit IV-PUSH PRN PRN PRN Reason: Dialysis Stop: 04/20/25 15:57 Last Admin: 04/20/24 16:57 Dose: 2,200 unit Exam Physical Exam Vital Signs: Temp Pulse Resp BP Pulse Ox O2 Del Method 97.6 F 89 14 169/93 H 96 Room Air 04/20/24 15:55 04/20/24 16:55 04/20/24 16:55 04/20/24 16:55 04/20/24 16:55 04/20/24 16:55 Narrative: General: Appears comfortable and not in distress Heart: S1-S2, no rub Lung: Bilateral air entry, no wheezing or crackles Abdomen: Soft, positive bowel sounds Extremities: No edema, no cyanosis Head: Atraumatic, normocephalic Ear: No gross hearing Deficit or external ear redness Eyes: No pallor or redness Neck: No JVD or visible mass Skin: No rashes , warm to touch CUSTOMER SERVICE SALES ASSOCIATE: Awake,Alert, following simple command Musculoskeletal: No swelling or limitation of movement of the large joints Psychiatric: Cooperative, normal mood and affect Results - Nephrology Radiology Impressions Impressions - last 24 hours: Impressions Chest X-Ray 04/20/24 16:28 IMPRESSION: There is a right IJ line with the tip in the superior vena cava. No pneumothorax. Impression dictated by: Emery Steinberg M.D.04/20/2024 4:47 PM Dictation Location: [place] [address] Any impression(s) listed above is documentation that was entered by the reading physician into a diagnostic report(s) for Ness Beaver. I have reviewedthe report(s) and am incorporating any findings in the treatment plan of this patient where applicable. A&P - Nephrology Assessment/Plan (1) JASMINA (acute kidney injury): Assessment/Problem Details: Patient is a JASMINA due to unclear etiology. Differential diagnoses are RPGN, AIN or ATN. Patient has no evidence of obstructive uropathy on CAT scan. (2) Hyperkalemia: Assessment/Problem Details: He has hyperkalemia due to the JASMINA and metabolic acidosis. (3) Metabolic acidosis: Assessment/Problem Details: He has metabolic acidosis likely due to the JASMINA. (4) Hepatitis C: Assessment/Problem Details: Patient has a known history of hepatitis C. (5) Anemia: Assessment/Problem Details: He has a anemia possibly due to the JASMINA. Other diffuse diagnoses are paraproteinemia or GI losses. Plan * I discussed with the patient and the family to initiate urgent hemodialysis due to the hyperkalemia and uremia. Patient and family agrees for it. Patient consented for it. He was started on hemodialysis after temporary dialysis catheter placement by metrology manager Dr. Sawyer. * Will order the workup for RPGN including ANCA, hepatitis C induced MPGN, anti- GBM, lupus and paraproteinemia. * I also explained to the patient and the family that he will need a kidney biopsy for definitive diagnosis. Patient consented for it. Will consult IR for kidney biopsy. * Will hold the further fluid resuscitation. * Check renal function daily and monitor input output * Thanks for consult. Will continue follow-up with you. Please feel free to call us with any question. Documented By: Ben Bravo MD 04/20/24 1700 Signed By: 04/20/24 1722 [facility]02-20-2025 [place] [address] Pulmonology Procedure Note Signed Patient: Ness Beaevr MR#: [id number] 1230 : 1980 Acct:[id number] Age/Sex: 44 / M Adm Date: 5 Loc: Room: [address] [place] [address] Type: ADM IN Attending Dr: Timi Ferguson DO Copies to: MD Asiya Moreno APRN, TECHNOLOGY TEACHER Timi Ferguson, ~ Pulmonary Procedures DATE OF PROCEDURE: 04/20/24 INDICATION: Acute renal failure POST-OP DIAGNOSIS: Acute renal failure CONSENT: received/signed TIME OUT PERFORMED: Yes STONE RUBBER: Chiqui Cox MD CENTRAL VENOUS CATHETER Right IJ: PATIENT PLACED ON MONITOR/PULSE OX: Yes PROVIDER PREP: mask, gown, sterile gloves and hat CENTRAL LINE PREP: Chlorhexidine scrub and sterile drapes applied ANESTHETIC USED: lidocaine 1% AMOUNT OF ANESTHETIC USED (mL): 5 ULTRASOUND USED FOR PLACEMENT: Yes CENTRAL LINE LUMEN/TYPE INSERTED: dialysis cath TECHNIQUE: Seldinger COMPLICATIONS: none POST PROCEDURE: sutured in place, good blood return, all ports aspirated, flushed, capped and sterile dressing applied PATIENT TOLERATED PROCEDURE: well Documented By: Chiqui Cox MD 04/20/24 1629 Signed By: 04/20/24 1630 [facility]10-09[facility]24 [facility] Emergency department Note* Hany Fuentes MD - 07/28/2023 6:58 AM EDT EMERGENCY DEPARTMENT ENCOUNTER Pt Name: Ness Beaver [...] who presents to the emergency department with right- sided lumbar back pain worse over the last 3 days, this is a chronic issue for him, he denies any fevers chills or bodyaches, no radiation of pain. Worse with movement. No trauma. Patient denies any loss of bladder or bowel control, saddle anesthesia, radicular symptoms, or fevers. Patient denies any pain in the midlineand says that the pain is exacerbated by [...] medullaris syndrome, epidural abscess, discitis or vertebral os teomyelitis. The patient was instructed that if they [...] symptoms, treated with Flexeril and prednisone. Patient hashistory of opiate dependence has been sober for 6 months. The patient will be Discharged. Patient is in agreement with this plan. PROCEDURES: Unless otherwise noted below, none Procedures CRITICAL CARE TIME None FINAL IMPRESSION 1. Lumbar strain, initial encounter DISPOSITION Discharge 07/28/2023 07:13:05 AM PATIENT [facility] [address] [place] [phone] Schedule an appointment as soon as possible [...] are any questions or concerns please feel freeto contact the dictating provider for clarification.) Hany Fuentes MD (electronically signed) Emergency Medicine Provider Hany Fuentes MD 07/28/23 0808 documented in this [facility]05-29-2024 Physician Emergency department Note* Hany Fuentes MD - 07/28/2023 6:58 AM EDT EMERGENCY DEPARTMENT ENCOUNTER Pt Name: Ness Beaver [...] who presents to the emergency department with right- sided lumbar back pain worse over the last 3 days, this is a chronic issue for him, he denies any fevers chills or bodyaches, no radiation of pain. Worse with movement. No trauma. Patient denies any loss of bladder or bowel control, saddle anesthesia, radicular symptoms, or fevers. Patient denies any pain in the midlineand says that the pain is exacerbated by [...] medullaris syndrome, epidural abscess, discitis or vertebral os teomyelitis. The patient was instructed that if they [...] symptoms, treated with Flexeril and prednisone. Patient hashistory of opiate dependence has been sober for 6 months. The patient will be Discharged. Patient is in agreement with this plan. PROCEDURES: Unless otherwise noted below, none Procedures CRITICAL CARE TIME None FINAL IMPRESSION 1. Lumbar strain, initial encounter DISPOSITION Discharge 07/28/2023 07:13:05 AM PATIENT REF[facility]ED [facility]: [facility] [address] [place] [phone] Schedule an appointment as soon as [...] are any questions or concerns please feel freeto contact the dictating provider for clarification.) Hany Fuentes MD (electronically signed) Emergency Medicine Provider Hany Fuentes MD 07/28/23807 [id number] Discharge instructions* Discharge Instructions* Maribeth Veliz APRN - 04/02/2023 11:27 AM EST In the medical field, there is always a level of diagnostic uncertainty, even if this uncertainty is low. For this reason, it is important to immediately return to the emergency department if you have any new symptoms, worsening symptoms, change of symptoms, or if you have any other concerns. We would be happy to re- evaluate you. Otherwise, please take your medications as prescribed and follow-upas recommended. * Attachments The following attachments cannot be sent through Care Everywhere. * Respiratory Syncytial Virus Discharge Instructions, Adult (Greenlandic) documented in this [facility]02-02-2024 Emergency department Note* Maribeth Veliz APRN - 04/02/2023 9:08 AM EST EMERGENCY DEPARTMENT ENCOUNTER Pt Name: Ness Beaver [...] his urine has been dark and he startingto notice some bilateral flank pain earlier today, describes this as a dull ache. Patient denies headache, fever, chills, lightheadedness, dizziness, visual disturbances, sore throat, chest pain, shortness of breath, abdominal pain, nausea, vomiting, diarrhea, constipation, hematemesis, hematochezia. Denies dysuria or gross hematuria. Patient's past medical history includes paresthesias, elevatedtransaminases, long QT syndrome, and depression. Nursing Notes [...] Culture. Procedure Abnormality Status --------- ------ Complete Urinalysis[[id number]] Abnormal Final result Please view results for [...] complaint of productive cough and congestion for thepast 5 days, now accompanied by bilateral flank pain. The differential diagnosis associated with this patient's presentation includes COVID-19, influenzaA, influenza B, RSV, pneumonia, bronchitis, other viral syndrome, streptococcal pharyngitis, viral pharyngitis, urinary tract infection, nephrolithiasis, pyelonephritis. Our workup consisted of ordering/reviewing: Urinalysis was ordered due to complaint of bilateral flank pain; overall unremarkable. There is no CVA tenderness on exam. Patient denies difficulty urinating, dysuria, hematuria. Because of this I have low clinical suspicion for nephrolithiasis or pyelone phritis. Chest x-ray was obtained to evaluate for pneumonia, no acute cardiopulmonary process notedon chest x-ray. Patient was tested for viral illnesses, negative for COVID-19, influenza A, and influenza B. Patient did test positive for respiratory syncytial virus. This does likely explain patient's symptoms. Patient prescribed Medrol Dosepak and Tessalon Perles for cough and symptom management. Patient also instructed to continue use of [id number] cold and flu medicine as needed. The patient will be Discharged. Patient is in agreement with this plan. PROCEDURES: Unless otherwise noted below, none Procedures CRITICAL CARE TIME None FINAL IMPRESSION 1. RSV (respiratory syncytial virus infection) DISPOSITION Discharge 04/02/2023 11:26:21 AM PATIENT REFERRED TO: [facility] [address] [facility] [phone] Go to As needed, If symptoms worsen DISCHARGE MEDICATIONS: Discharge Medication List as of 04/02/2023 11:27 AM START taking these medications Details benzonatate (Tessalon) 100 MG capsule Take 1 capsule (100 mg) by mouth in the morning and 1 capsule(100 mg) at noon and 1 capsule (100 [...] are any questions or concerns please feel freeto contact the dictating provider for clarification.) Maribeth Veliz APRN (electronically signed) Emergency Medicine Provider Maribeth Veliz APRN 04/02/23 1136 documented in this [facility]02-02-2024 Physician Emergency department Note* Maribeth Veliz APRN - 04/02/2023 9:08 AM EST EMERGENCY DEPARTMENT ENCOUNTER Pt Name: Ness Beaver [...] his urine has been dark and he startingto notice some bilateral flank pain earlier today, describes this as a dull ache. Patient denies headache, fever, chills, lightheadedness, dizziness, visual disturbances, sore throat, chest pain, shortness of breath, abdominal pain, nausea, vomiting, diarrhea, constipation, hematemesis, hematochezia. Denies dysuria or gross hematuria. Patient's past medical history includes paresthesias, elevatedtransaminases, long QT syndrome, and depression. Nursing Notes [...] Culture. Procedure Abnormality Status --------- ------ Complete Urinalysis[[id number]] Abnormal Final result Please view results for [...] complaint of productive cough and congestion for thepast 5 days, now accompanied by bilateral flank pain. The differential diagnosis associated with this patient's presentation includes COVID-19, influenzaA, influenza B, RSV, pneumonia, bronchitis, other viral syndrome, streptococcal pharyngitis, viral pharyngitis, urinary tract infection, nephrolithiasis, pyelonephritis. Our workup consisted of ordering/reviewing: Urinalysis was ordered due to complaint of bilateral flank pain; overall unremarkable. There is no CVA tenderness on exam. Patient denies difficulty urinating, dysuria, hematuria. Because of this I have low clinical suspicion for nephrolithiasis or pyelone phritis. Chest x-ray was obtained to evaluate for pneumonia, no acute cardiopulmonary process notedon chest x-ray. Patient was tested for viral illnesses, negative for COVID-19, influenza A, and influenza B. Patient did test positive for respiratory syncytial virus. This does likely explain patient's symptoms. Patient prescribed Medrol Dosepak and Tessalon Perles for cough and symptom management. Patient also instructed to continue use of [id number]-[id number] cold and flu medicine as needed. The patient will be Discharged. Patient is in agreement with this plan. PROCEDURES: Unless otherwise noted below, none Procedures CRITICAL CARE TIME None FINAL IMPRESSION 1. RSV (respiratory syncytial virus infection) DISPOSITION Discharge 04/02/2023 11:26:21 AM PATIENT REFERRED TO: [facility] EM[facility] DE[facility] [address] [place] [phone] Go to As needed, If symptoms worsen DISCHARGE MEDICATIONS: Discharge Medication List as of 04/02/2023 11:27 AM START taking these medications Details benzonatate (Tessalon) 100 MG capsule Take 1 capsule (100 mg) by mouth in the morning and 1 capsule(100 mg) at noon and 1 capsule (100 [...] are any questions or concerns please feel freeto contact the dictating provider for clarification.) Maribeth Veliz APRN (electronically signed) Emergency Medicine Provider Maribeth Veliz APRN 04/02/23 1136 [facility]01-06-2024 Emergency department Note* Luba Abbott RN - 03/06/2023 7:34 PM EST Discharge instructions reviewed with patient and he understands. He will take 2 doses of 8mg suboxone on 03/07,03/08, and 03/09. He will not take any suboxone on 03/10 for appointment at [place]. I called [facility] for transportation. Patient discharged to wait in waiting room for ride. Luba Abbott RN 03/06/23 193 [facility]01-06-2024 Emergency department Note* Luba Abbott RN - 03/06/2023 7:34 PM EST Discharge instructions reviewed with patient and he understands. He will take 2 doses of 8mg suboxone on 03/07,03/08, and 03/09. He will not take any suboxone on 03/10 for appointment at [place]. I called [facility] for transportation. Patient discharged to wait in waiting room for ride. Luba Abbott RN 03/06/231936 * Luba Abbott RN - 03/06/2023 7:08 PM EST Patient spoke with Peer financial coach on the phone. PRC card provided. Verified with [employer] Business Analyst at [facility] that he is a patient there. Luba Abbott RN 03/06/231908 * Luba Abbott RN - 03/06/2023 5:46 PM EST Patient in MAT room, with suboxone prescription, has 6 8 mg suboxone strips. States the suboxone isnot working with a plan to transition to methadone on Wednesday. Looking to increase dose as we areunable to initiate methadone in the ED. Addiction medicine was consulted from [facility] and stated there is no concern to increase dose with methadone transition in the future but to instruct patient to hold dose the morning of his appointment. * Luba Abbott RN - 03/06/2023 5:00 PM EST Ness Beaver was transferred from [facility] to [facility] for suboxone dosing. He was driven by [facility] employee. Dr. Uribe was consulted to discuss plan of care for this patient. He was taking suboxone 16mg and had elevated liver enzymes. His dose was stopped in January. On 02/21 he was sent to [facility] due to potential suicidal ideation. He restarted suboxone on 02/22 at 4mg. He is currently on 8/2mg per day. Last dose was on 03/05/2023 suboxone 8/2 film. He has the filled rx on him. He has an appointment to transfer to Methadone on 03/10/23 at [place]. Luba Abbott RN 03/06/23 1715 * Maribeth Veliz APRN - 03/06/2023 3:42 PM EST EMERGENCY DEPARTMENT ENCOUNTER Pt Name: Ness Beaver Birthdate 1980 Date of evaluation: 03/06/2023 ED Provider: Maribeth Veliz APRN Patient seen independently within my scope of practice with an Emergency Medicine attending available for supervision. CHIEF COMPLAINT Chief Complaint Patient presents with Addiction Problem Sent from [place] via Dr. Uribe to see MAT nurse. Acc was consulted from [place] via telehealth. Pt stated on 16/4 mg suboxone via telehealth. Now stating on 8/2 and prescription endorses this. His goal is to transition to methadone and went to [place] today through [facility] but was unable to dose due to them not having his information. They sent him to [facility]. Unable to dose methadone as a new prescription but per addiction consult plan is to increase dose of suboxone. HISTORY OF PRESENT ILLNESS (Location/Symptom, Timing/Onset, Context/Setting, Quality, Duration, Modifying Factors, Severity) Note limiting factors. I wore appropriate PPE for the entirety of this encounter. HPI Ness Beaver is a 42 y.o. who presents to the emergency department from [facility] for Suboxone dosing. Patient states that his Suboxone therapy was discontinued on 21 February due to elevated liver enzymes. Patient states he was then sent to [facility] due to suicidal ideation. Suboxone therapy restarted on 22 February at 4 mg daily. Patient has been titrated up to 8 mg daily with his last dose yesterday. He does however state that this dose has not been sufficient for managing withdrawal symptoms. There was a misunderstanding at [facility] at which time it was understood that patient was on 16 mg daily of Suboxone and still needed an increase in dose. Because of this patient was sent to [facility] to be seen by addiction medicine physician. Patient does have 6 films of 8/2 Suboxone on him. Has appointment to transfer to methadone on 03/10/2023 at [facility]. Patient endorses some chills, mild nausea, mild [...] COURSE and DIFFERENTIAL DIAGNOSIS/MDM: Vitals: Vitals: 03/06/23 1917 Pulse: 78 Resp: 18 Temp: 36.6 C (97.8 F) TempSrc: Temporal SpO2: 98% Weight: 72.6 kg (160 lb) Height: 1.727 m (5' 8 ) Medications buprenorphine-naloxone (Suboxone) 8-2 MG per sublingual film 1 Film (1 Film SubLINGual Given ) MDM elements: The patient presented with chief [...] ED. I discussed their care with addiction director of critical care nurses dmitry and Rudi. They had reachedout to addiction care physician Dr. Uribe prior [...] are any questions or concerns please feel freeto contact the dictating provider for clarification.) Maribeth Veliz APRN (electronically signed) Emergency Medicine Provider Maribeth Veliz APRN 03/06/23 8828 documented in this [facility]01-06-2024 Emergency department Note* Luba Abbott RN - 03/06/2023 7:08 PM EST Patient spoke with Peer financial coach on the phone. PRC card provided. Verified with [employer] Business Analyst at [facility] that he is a patient there. Luba Abbott RN 03/06/23 7549 [id number] [facility] Discharge instructions* Discharge Instructions* Maribeth Veliz APRN - 03/06/2023 6:56 PM EST As discussed with myself, [facility] nurses, and Dr. Uribe with addiction medicine, please take 1 8 mg Suboxone film, twice daily until your upcoming appointment with [facility]. In the medical field, there is always a level of diagnostic uncertainty, even if this uncertainty is low. For this reason, it is important to immediately return to the emergency department if you have any new symptoms, worsening symptoms, change of symptoms, or if you have any other concerns. We would be happy to re- evaluate you. Otherwise, please take your medications as prescribed and follow-upas recommended. * Attachments The following attachments cannot be sent through Care Everywhere. * Drug Level Monitoring (Greenlandic) documented in this [facility]01-06-2024 Emergency department Triage note* Luba Abbott RN - 03/06/2023 5:46 PM EST Patient in MAT room, with suboxone prescription, has 6 8 mg suboxone strips. States the suboxone isnot working with a plan to transition to methadone on Wednesday. Looking to increase dose as we areunable to initiate methadone in the ED. Addiction medicine was consulted from [place] ED and stated there is no concern to increase dose with methadone transition in the future but to instruct patient to hold dose the morning of his appointment. [facility] [id number] Emergency department Note* Luba Abbott RN - 03/06/2023 5:00 PM EST Ness Beaver was transferred from [facility] to [facility] for suboxone dosing. He was driven by [employer] employee. Dr. Uribe was consulted to discuss plan of care for this patient. He was taking suboxone 16mg and had elevated liver enzymes. His dose was stopped in January. On 02/21 he was sent to [facility] due to potential suicidal ideation. He restarted suboxone on 02/22 at 4mg. He is currently on 8/2mg per day. Last dose was on 03/05/2023 suboxone 8/2 film. He has the filled rx on him. He has an appointment to transfer to Methadone on 03/10/23 at [place]. Luba Abbott RN 03/06/23 1715 [facility] [id number] Physician Emergency department Note* Maribeth Veliz APRN - 03/06/2023 3:42 PM EST EMERGENCY DEPARTMENT ENCOUNTER Pt Name: Ness Beaver Birthdate 1980 Date of evaluation: 03/06/2023 ED Provider: Maribeth Veliz APRN Patient seen independently within my scope of practice with an Emergency Medicine attending available for supervision. CHIEF COMPLAINT Chief Complaint Patient presents with Addiction Problem Sent from [place] via Dr. Uribe to see MAT nurse. Acc was consulted from [place] via telehealth. Pt stated on 16/4 mg suboxone via telehealth. Now stating on 8/2 and prescription endorses this. His goal is to transition to methadone and went to [place] today through [facility] but was unable to dose due to them not having his information. They sent him to [facility]. Unable to dose methadone as a new prescription but per addiction consult plan is to increase dose of suboxone. HISTORY OF PRESENT ILLNESS (Location/Symptom, Timing/Onset, Context/Setting, Quality, Duration, Modifying Factors, Severity) Note limiting factors. I wore appropriate PPE for the entirety of this encounter. HPI Ness Beaver is a 42 y.o. who presents to the emergency department from [facility] for Suboxone dosing. Patient states that his Suboxone therapy was discontinued on 21 February due to elevated liver enzymes. Patient states he was then sent to [facility] due to suicidal ideation. Suboxone therapy restarted on 22 February at 4 mg daily. Patient has been titrated up to 8 mg daily with his last dose yesterday. He does however state that this dose has not been sufficient for managing withdrawal symptoms. There was a misunderstanding at [facility] at which time it was understood that patient was on 16 mg daily of Suboxone and still needed an increase in dose. Because of this patient was sent to [facility] to be seen by addiction medicine physician. Patient does have 6 films of 8/2 Suboxone on him. Has appointment to transfer to methadone on 03/10/2023 at [facility]. Patient endorses some chills, mild nausea, mild [...] COURSE and DIFFERENTIAL DIAGNOSIS/MDM: Vitals: Vitals: 03/06/23 1917 Pulse: 78 Resp: 18 Temp: 36.6 C (97.8 F) TempSrc: Temporal SpO2: 98% Weight: 72.6 kg (160 lb) Height: 1.727 m (5' 8 ) Medications buprenorphine-naloxone (Suboxone) 8-2 MG per sublingual film 1 Film (1 Film SubLINGual Given ) MDM elements: The patient presented with chief [...] ED. I discussed their care with addiction director of critical care nurses dmitry and Rudi. They had reachedout to addiction care physician Dr. Uribe prior [...] are any questions or concerns please feel freeto contact the dictating provider for clarification.) Maribeth Veliz APRN (electronically signed) Emergency Medicine Provider Maribeth Veliz APRN 03/06/23 4691 [facility]01-[facility]24 Emergency department Note* Viki Mathew RN - 03/06/2023 2:54 PM EST Patient being transported over to [facility] by private vehicle (I spoke with Julio Cesar from [employer] who is coming to pick the patient up). Resources have been sent with patient. Vitals remain stable. Viki Mathew RN 03/06/23 [facility]55 [id number]* Viki Mathew RN - 03/06/2023 2:54 PM EST Patient being transported over to [facility] by private vehicle (I spoke with Julio Cesar from [employer] who is coming to pick the patient up). Resources have been sent with patient. Vitals remain stable. Viki Mathew RN 03/06/23 1455 * Esme Jeter RN - 03/06/2023 1:00 PM EST Faxed consent form for Addiction medicine and Peer financial coach pamphlet to [facility] Esme Jeter RN 03/06/23 1301 Esme Jeter RN 03/06/23 1302 * Reyna Cason RN - 03/06/2023 7:58 AM EST MAT nurse unavailable until 11 am. Pt aware and will wait in waiting room until he can be evaluated Reyna Cason RN 03/06/23 0271 * Katie Loza DO - 03/06/2023 7:26 AM EST EMERGENCY DEPARTMENT ENCOUNTER Pt Name: Ness Beaver [...] to detox. Was dropped off here by [facility] to sort out a dose. HISTORY OF PRESENT ILLNESS (Location/Symptom, Timing/Onset, Context/Setting, Quality, Duration, Modifying Factors, Severity) Note limiting factors. I wore appropriate PPE for the entirety of this encounter. HPI 42-year-old male presents emergency department today seeking methadone initiation. Is currently at [facility] and was dropped off here for possible emergency dose. He was taken to [facility] and they have an appointment for him on Wednesday but cannot initiate until then unless he has a cancellationthere. He denies any alcohol use. Last used [...] Temp Source Heart Rate Source Patient Position 03/06/[id number]/06/[id number] 1157 100 % Temporal Monitor Sitting BP [...] [facility] RAD[facility] (Per Emergency Physician): Interpretation per the [...] today seeking methadone initiation. Is currently at [facility] and was dropped off here for possible emergency dose. He was taken to [facility] and they have an appointment for him on Wednesday but cannot initiate until then unless he has a cancellation there. He denies any alcohol use. Last used IV drugs on January 27. He last used methadone inOctober of this year. He states it was helping him. Of note he currently has a prescription for thehighest dose of Suboxone but states is not helping him. [BM] [address] Malik Theodore of addiction medicine he states that patient to be evaluated by MAT nurse at [facility] if would like to be bridged from Suboxone to methadone. We cannot dispense methadone here in the ED. Told patient that apparently he needs to have his liver function test checked given his history of hepatitis and also be evaluated by MAT nurse over there if he would likehis dose of Suboxone potentially increased prior to his appointment at [facility] for methadone dosing on Wednesday. [BM] 1449 Patient does have a ride to take him to [facility] for evaluation by the MAT nurse will speak to ED physician for ED to ED transfer. [BM] 1452 Accepted at [facility] emergency department by Dr. Lorenzo for evaluation by MAT nurse. [BM] ED Course User Index [BM] Katie Loza DO Diagnoses as of 03/06/23 1528 History of hepatitis Transaminitis History of opioid abuse (CMS/HCC) (HCC) Medications - No data to display REVAL: CRITICAL CARE TIME FINAL IMPRESSION 1. History of hepatitis 2. Transaminitis 3. History of opioid abuse (CMS/HCC) (HCC) DISPOSITION Transfer To [facility] 03/06/2023 02:49:31 PM PATIENT REFERRED TO: [facility] [address] [address] Schedule an appointment as soon as possible for a visit in 2 days [facility] [address] [facility] [address] As needed, If symptoms worsen DISCHARGE MEDICATIONS: Discharge Medication List as of 03/06/2023 3:04 PM (Comment: Please note this report has been produced using speech recognition software and may contain errors related to that system including errors in grammar, punctuation, and spelling, as well as words and phrases that may be inappropriate. If there are any questions or concerns please feel freeto contact the dictating provider for clarification.) Katie Loza DO (electronically signed) Emergency Medicine Provider Katie Loza DO 03/06/23 1528 documented in this [facility]01-06-2024 Emergency department Note* Esme Jeter RN - 03/06/2023 1:00 PM EST Faxed consent form for Addiction medicine and Peer financial coach pamphlet to [facility] Esme Jeter RN 03/06/23 1301 Esme Jeter RN 03/06/23 1302 [facility]01[facility] Emergency department Note* Reyna Cason RN - 03/06/2023 7:58 AM EST MAT nurse unavailable until 11 am. Pt aware and will wait in waiting room until he can be evaluated Reyna Cason RN 03/06/23 0751 [facility]01-06-2024 Physician Emergency department Note* Katie Loza DO - 03/06/2023 7:26 AM EST EMERGENCY DEPARTMENT ENCOUNTER Pt Name: Ness Beaver [...] to detox. Was dropped off here by [facility] to sort out a dose. HISTORY OF PRESENT ILLNESS (Location/Symptom, Timing/Onset, Context/Setting, Quality, Duration, Modifying Factors, Severity) Note limiting factors. I wore appropriate PPE for the entirety of this encounter. HPI 42-year-old male presents emergency department today seeking methadone initiation. Is currently at [facility] and was dropped off here for possible emergency dose. He was taken to [facility] and they have an appointment for him on Wednesday but cannot initiate until then unless he has a cancellationthere. He denies any alcohol use. Last used [...] No Drug use: No Comment: methadone SCREENINGS [place] Coma Scale Best Eye Response: Spontaneous Best Verbal Response: Oriented Best Motor Response: Follows commands [place] Coma Scale Score: 15 PHYSICAL EXAM ED [...] methadone initiation. Is currently at [facility] and was dropped off here for possible emergency dose. He was taken to [facility] and they have an appointment for him on Wednesday but cannot initiate until then unless he has a cancellation there. He denies any alcohol use. Last used IV drugs on January 27. He last used methadone inOctober of this year. He states it was helping him. Of note he currently has a prescription for thehighest dose of Suboxone but states is not helping him. [BM] [address] Malik Theodore of addiction medicine he states that patient to be evaluated by MAT nurse at [facility] if would like to be bridged from Suboxone to methadone. We cannot dispense methadone here in the ED. Told patient that apparently he needs to have his liver function test checked given his history of hepatitis and also be evaluated by MAT nurse over there if he would likehis dose of Suboxone potentially increased prior to his appointment at [facility] for methadone dosing on Wednesday. [BM] 1449 Patient does have a ride to take him to [facility] for evaluation by the MAT nurse will speak to ED physician for ED to ED transfer. [BM] 1452 Accepted at [facility] emergency department by Dr. Lorenzo for evaluation by MAT nurse. [BM] ED Course User Index [BM] Katie Loza DO Diagnoses as of 03/06/23 1528 History of hepatitis Transaminitis History of opioid abuse (CMS/HCC) (HCC) Medications - No data to display REVAL: CRITICAL CARE TIME FINAL IMPRESSION 1. History of hepatitis 2. Transaminitis 3. History of opioid abuse (CMS/HCC) (HCC) DISPOSITION Transfer To [facility] 03/06/2023 02:49:31 PM PATIENT REFERRED TO: [facility] [address] [address] Schedule an appointment as soon as possible for a visit in 2 days [facility] [address] [facility] [phone] As needed, If symptoms worsen DISCHARGE MEDICATIONS: Discharge Medication List as of 03/06/2023 3:04 PM (Comment: Please note this report has been produced using speech recognition software and may contain errors related to that system including errors in grammar, punctuation, and spelling, as well as words and phrases that may be inappropriate. If there are any questions or concerns please feel freeto contact the dictating provider for clarification.) Katie Loza DO (electronically signed) Emergency Medicine Provider Katie Loza DO 03/06/23 1528 [facility]01-[facility]24 Evaluation note* Encounter Date Diagnosis Assessment Notes Treatment Notes Treatment Clinical Notes Mar, Elevated liver enzymes (ICD-10 - R74.8) [facility] Other Evaluation noteNo assessment information available [facility] Work Phone: Evaluation note* Diagnosis History of hepatitis- Primary Transaminitis Nonspecific elevation of levels of transaminase or lactic acid dehydrogenase (LDH) History of opioid abuse (CMS/HCC) (HCC) documented in this encounter [facility] note* Diagnosis Encounter for monitoring Suboxone maintenance therapy- Primary documented in this encounter [facility] note* Diagnosis RSV (respiratory syncytial virus infection)- Primary Respiratory syncytial virus (RSV) documented in this encounter [facility] note* Diagnosis Lumbar strain, initial encounter- Primary [facility] Diagnosis Onset Date Resolution Status Allergic rhinitis acute Anxiety acute Depression acute Family history of colon cancer acute Hepatitis C acute Screening for malignant neoplasm of colon acute [facility] Work Phone: Evaluation note* Diagnosis Onset Date Resolution Status Allergic rhinitis acute Anxiety acute Depression acute Family history of colon cancer acute Former smoker acute Hepatitis C acute History of drug abuse acute Screening for malignant neoplasm of colon acute Vapes nicotine containing substance acute [facility] Work Phone: Evaluation note* Diagnosis Onset Date Resolution Status Allergic rhinitis acute Anxiety acute Depression acute Family history of colon cancer acute Former smoker acute Hepatitis C acute History of drug abuse acute Screening for malignant neoplasm of colon acute Vapes nicotine containing substance acute Abscess acute Abscess acute [facility] Work Phone: History and physical note Author Chay Weber [facility] December 08, 2023 9:17am Note Date/Time December 08, 2023 9: 07am [facility] [address] [place] [address] Gastroenterology H&P Signed Patient: Ness Beaver MR#: [id number] 1230 : 1980 Acct:[id number] Age/Sex: 43 / M Adm Date: 4 Loc: Room: Type: [facility] Attending Dr: Chay Weber MD Copies to: [...] <Electronically signed by Chay Weber MD> 12/08/23916 [facility] Work Phone: History general Narrative - Reported* Type Description Date Surgical History tonsillectomy and adenoidectomy [facility] Other Hospital Discharge instructions Additional Instructions Follow-up with Dr. Jerome You may return to [facility] Work Phone: Hospital Discharge instructions* Attachments The following attachments cannot be sent through Care Everywhere. * Back Muscle Strain (Greenlandic) * Back Stretches on Floor (Greenlandic) documented in this [facility] Discharge instructions Additional Instructions DISCHARGE INSTRUCTIONS FOR [...] prep -Follow up with PCP. -Office number [phone]. [facility] Work Phone: Summary Purpose Family History Relationship Condition Age at Onset Recorded Date/T kylah Not Specified Malignant neoplasm of colon Unknown Relationship Condition Age at Onset Recorded Date/T kylah family member Malignant neoplasm of colon Unknown Advance Directives Advance Directive Response Recorded Date/ Time Advance Directives No May 11, 023 8:26am Advance Directive Response Recorded Date/ Time Advance Directives No May 11 023 7:26am Advance Directive Response Recorded Date/ Time Advance Directives No April 8:59am Advance Directive Response Recorded Date/ Time Advance Directives No May 04 11:01am Chief Complaint and Reason for Visit Chief Complaint long QT syndrome Chief Complaint headache , fever sen t by Chief Complaint Establish Reason for Visit Allergic [...] nicotine containing substance Abscess Abscess Chief Complaint Admit Date Unknown April 20, 2024 11:49am JASMINA hyperkalemia April 20, 2024 3:46pm JASMINA hyperkalemia April 20, 2024 4:29pm JASMINA hyperkalemia April 20, 2024 5:00pm Reason for Visit Admit Date JASMINA (acute kidney injury) April 20, 2024 3:46pm Anemia April 20, 2024 3:46pm Hepatitis C April 20, 2024 3:46pm Hyperkalemia April 20, 2024 3:46pm Metabolic acidosis April 20, 2024 3:46pm Vapes nicotine containing substance Febr uary 2024 3:46pm Chief Complaint Admit Date Unknown April 20, 2024 11:49am JASMINA hyperkalemia April 20, 2024 3:46pm JASMINA hyperkalemia April 20, 2024 4:29pm JASMINA hyperkalemia April 20, 2024 5:00pm JASMINA hyperkalemia April 25, 2024 10:10am JASMINA hyperkalemia April 27, 2024 11:35am Amb Documentation April 27, 2024 2:15pm Chief Complaint Admit Date Unknown April 20, 2024 11:49am JASMINA hyperkalemia April 20, 2024 3:46pm JASMINA hyperkalemia April 20, 2024 4:29pm JASMINA hyperkalemia April 20, 2024 5:00pm JASMINA hyperkalemia April 25, 2024 10:10am JASMINA hyperkalemia April 27, 2024 11:35am Amb Documentation April 27, 2024 2:15pm [facility]: JASMINA May 01, 2024 11:1 2am Reason for Visit Admit Date JASMINA (acute kidney injury) April 20, 2024 3:46pm Anemia April 20, 2024 3:46pm Hepatitis C April 20, 2024 3:46pm Hyperkalemia April 20, 2024 3:46pm Metabolic acidosis April 20, 2024 3:46pm Vapes nicotine containing substance Febr 2024 3:46pm DVT of upper extremity (deep vein thromb osis) May 01, 2024 11:12am History of drug abuse May 01, 2024 11 :12am Chief Complaint Admit Date Unknown April 20, 2024 11:49am JASMINA hyperkalemia April 20, 2024 3:46pm JASMINA hyperkalemia April 20, 2024 4:29pm JASMINA hyperkalemia April 20, 2024 5:00pm JASMINA hyperkalemia April 25, 2024 10:10am JASMINA hyperkalemia April 27, 2024 11:35am Amb Documentation April 27, 2024 2:15pm [facility]: JASMINA May 01, 2024 11:1 2am N17.9 May 04, 2024 9:58 am Reason for Visit Admit Date JASMINA (acute kidney injury) April 20, 2024 3:46pm Anemia April 20, 2024 3:46pm Hepatitis C April 20, 2024 3:46pm Hyperkalemia April 20, 2024 3:46pm Metabolic acidosis April 20, 2024 3:46pm Vapes nicotine containing substance Febr [email or web address] 3:46pm DVT of upper extremity (deep vein thromb osis) May 01, 2024 11:12am History of drug abuse May 01, 2024 11 :12am Influenza A May 01, 2024 11:1 2am Pneumonia May 01, 2024 11:1 2am JASMINA (acute kidney injury) May 01 11:12am Vapes nicotine containing substance Ralf h 2024 11:12am Additional Source Comments (unrecognized sect ion and content) No Status Records FoundNo Status Records FoundNo Status Records FoundNo Status Records FoundNo Status Records Found INFORMATION SOURCE (unrecogn ized section and content) DATE CREATED AUTHOR 11/01/2020 [facility] DATE CREATED AUTHOR 'S ORGANIZ ATISMAEL 09/25/2021 [facility] [employer] DATE CREATED AUTHOR AUTHOR'S ORGANIZ ATION 02/20/2022 [facility] DATE CREATED AUTHOR AUTHOR'S ORGANIZ ATION 07/29/2023 [facility] DATE CREATED AUTHOR AUTHOR'S ORGANIZ ATION 05/06/2024 [facility] Care Teams (unrecognized sec tion and content) Team Status: Active Member Role Status Dates PHYSICIAN NO FAMILY Primary Care Provider Active Team Status: Active Member Role Status Dates Asiya Boyd APRN POLYGRAPH TECHNICIAN-C Primary Care Provider Active Start: October 08, 2023 John Sheth DO Attending Provider Active Sta rt: October 08, 2023 Team Status: Inactive Member Role Status Dates Asiya Boyd APRN POLYGRAPH TECHNICIAN-C Primary Care Provider, Attending Provider Active Start: October 19, 2023 End: October 19, 2023 Team Status: Inactive Member Role Status Dates Asiya Boyd APRN POLYGRAPH TECHNICIAN-C Primary Care Provider Active Start: October 312023 End: November 22, 2023 Poonam Velázquez APRN Attending Provider Active S tart: November 22, 2023 End: November 22, 2023 Team Status: Active Member Role Status Dates Asiya Boyd APRN POLYGRAPH TECHNICIAN-C Primary Care Provider Active Start: October 312023 Tatyana Hardin MD Attending Provider Active Sta rt: November 23, 2023 Team Status: Inactive Member Role Status Dates Asiya Boyd APRN POLYGRAPH TECHNICIAN-C Primary Care Provider, Attending Provider Active Start: November 29, 2023 End: November 29, 2023 Team Status: Inactive Member Role Status Dates Asiya Boyd APRN POLYGRAPH TECHNICIAN-C Attending Provider Active Start: October End: November [...] Active Joshua Burger MD Emergency Provider Active Paint And Table Edger Relationship Specialty Start Date End Date [facility] [address] [place] [address] PCP - General 03/06/23 Paint And Table Edger Relationship Specialty Start Date End Date [facility] [address] [place] [address] PCP - General 03/06/23 Paint And Table Edger Relationship Specialty Start Date End Date [facility] [address] [place] [address] PCP - General 03/06/23 Paint And Table Edger Relationship Specialty Start Date End Date [facility] [address] [place] [address] PCP - General 03/06/23 Team Status: Active Member Role Status Dates Asiya Boyd APRN POLYGRAPH TECHNICIAN-C Primary Care Provider Active Team Status: Inactive Member Role Status Dates Asiya Boyd APRN POLYGRAPH TECHNICIAN-C Attending Provider Act harper Start: November 29, 2023 End: November 29, 2023 Team Status: Inactive Member Role Status Dates Asiya Boyd APRN POLYGRAPH TECHNICIAN-C Primary Care Provider Active Start: November End: December 22, 2023 Stan Rihcards MD Attending Provider Active Star t: December 22, 2023 End: December 22, 2023 Team Status: Inactive Member Role Status Dates Monik Leigh MD Attending Provider Active S tart: April 20, 2024 End: April 20, 2024 Team Status: Active Member Role Status Dates Asiya Boyd APRN POLYGRAPH TECHNICIAN-C Primary Care Provider Active Start: April 202024 Timi Ferguson DO Admit Provider , Attending Provider Active Start: April 20, 2024 Brian Duncan DO Other Provider Active Start: ebruary 2024 Ben Bravo MD Other Provider Active Start: bru2024 Chiqui Cox MD Other Provider Active Start: ebruary 2024 Team Status: Active Member Role Status Dates Asiya Boyd APRN POLYGRAPH TECHNICIAN-C Primary Care Provider Active Start: April 202024 Timi Ferguson DO Admit Provider , Other Provider Active Start: April 20, 2024 Chiqui Cox MD Attending Provider Active Star t: April 20, 2024 Team Status: Active Member Role Status Dates Asiya Boyd APRN POLYGRAPH TECHNICIAN-C Primary Care Provider Active Start: April 202024 Timi Ferguson DO Admit Provider , Other Provider Active Start: April 20, 2024 Ben Bravo MD Attending Provider, Other Provider Active Start: April 20, 2024 Chiqui Cox MD Other Provider Active Start: 2024 Brian Duncan DO Other Provider Active Start: 2024 Team Status: Inactive Member Role Status Dates Asiya Boyd APRN POLYGRAPH TECHNICIAN-C Primary Care Provider Active Start: April 202024 End: April 27, 2024 Timi Ferguson DO Admit Provider Active Start: April 20, 2024 End: April 27, 2024 Brian Duncan DO Other Provider Active Start: 2024 End: April 27, 2024 Ben Bravo MD Other Provider Active Start: 2024 End: April 27, 2024 Mindi Diaz LPN Other Provider Active Star t: April 20, 2024 End: April 27, 2024 Brian Deal MD Other Provider Active Start : April 20, 2024 End: April 27, 2024 Arielle Mccallum NP-C Other Provider Active St art: April 20, 2024 End: April 27, 2024 Halle Chowdhury MD Other Provider Active Start : April 20, 2024 End: April 27, 2024 Chinedu Escalante MD Other Provider Active Start: April 20, 2024 End: April 27, 2024 Rosalinda Jones MD Attending Provider Active S tart: April 20, 2024 End: April 27, 2024 Team Status: Active Member Role Status Dates Asiya Boyd APRN POLYGRAPH TECHNICIAN-C Primary Care Provider Active Start: April 252024 Timi Ferguson DO Admit Provider Active Start: April 25, 2024 Brian Duncan DO Other Provider Active Start: zay 2024 Ben Bravo MD Other Provider Active Start: 2024 Mindi Diaz LPN Other Provider Active Star t: April 25, 2024 Brian Deal MD Other Provider Active Start : April 25, 2024 Arielle Mccallum POLYGRAPH TECHNICIAN-C Other Provider Active St art: April 25, 2024 Halle Chowdhury MD Other Provider Active Start : April 25, 2024 Chinedu Escalante MD Attending [facility] ider, Other Provider Active Start: April 25, 2024 Rosalinda Jones MD Other Provider Active Start : April 25, 2024 Team Status: Active Member Role Status Dates Asiya Boyd APRN POLYGRAPH TECHNICIAN-C Primary Care Provider Active Start: April [id number] Timi Ferguson DO Admit Provider Active Start: April 27, 2024 Brian Duncan DO Other Provider Active Start: graham 2024 Ben Bravo MD Other Provider Active Start: 2024 Mindi Diaz LPN Other Provider Active Star t: April 27, 2024 Brian Deal MD Other Provider Active Start : April 27, 2024 Arielle Mccallum POLYGRAPH TECHNICIAN-C Other Provider Active St art: April 27, 2024 Halle Chowdhury MD Other Provider Active Start : April 27, 2024 Chinedu Escalante MD Other Provider Active Start: April 27, 2024 Rosalinda Jones MD Other Provider Active Start : April 27, 2024 Sergio Harris MD Attending Provider Active Star t: April 27, 2024 Team Status: Active Member Role Status Dates Asiya Boyd APRN POLYGRAPH TECHNICIAN-C Primary Care Provider Active Start: April [id number] Rhea Loco CMA Attending Provider Active Start: April 27, 2024 Team Status: Inactive Member Role Status Dates Asiya Boyd APRN POLYGRAPH TECHNICIAN-C Primary Care Provider, Attending Provider Active Start: May 01, 2024 End: May 01, 2024 Team Status: Inactive Member Role Status Dates Asiya CANELO Boyd POLYGRAPH TECHNICIAN-C Primary Care Provider Active Start: May 04, 2024 End: May 04, 2024 Rosalinda Jones MD Attending Provider Active S tart: May 04, 2024 End: May 04, 2024 Goals (unrecognized section and content) Goals may [...] to detox. Was dropped off here by [facility] to sort out a dose. Reason Comments Addiction Problem Sent from [place] via Dr. Uribe to see MAT nurse. Acc was consulted from [place] via telehealth. Pt stated on 16/4 mg suboxone via telehealth. Now stating on 09/30 and prescription endorses this. His goal is to transition to methadone and went to [place] today through [facility] but was unable to dose due to them not having his information. They sent him to [facility]. Unable to dose methadone as a new [...] On 03/06/23 at 1855, For 1 dose 7 (Given - Provid er: Luba Abbott RN) [...] BE BASED ON THE PRIMARY CLINICAL RECORDS. [facility]. provides no warranty or guarantee of the accuracy or completeness of information in this document.
--- NOTE | 2024-05-31 04:24 | ED.GENADUL1 ---
HPI HPI - General Adult General Chief complaint: Dental/Oral Stated complaint: POST SURGERY COMPLICATION, BLEEDING Time Seen by Provider: 05/31/24 04:09 Source: patient Mode of arrival: walk-in Limitations: no limitations History of Present Illness HPI narrative: Patient presents to the emergency department chief complaint of bleeding from the mouth. He had 2 posts placed in his upper jaw a few months ago. 6 days ago because the gum was overgrown over the posts he had excision of the gingiva performed to expose the posts so that dental implants could be placed. Patient has had some bleeding off-and-on from his mouth during the day yesterday which tonight has became excessive mainly from the right side. Patient has a past medical history of acute kidney injury for which he was initially seen in this emergency department April 20 and was transferred to [facility]. He subsequently underwent dialysis and states that the kidney function has since returned to normal. He had a dialysis catheter inserted in the right IJ and sometime after which she was found to have swelling of the right arm. Ulltrasound reported a blood clot in his right arm so he was placed on Eliquis. He has continued to take it through his recent dental procedure. Related Data Home Medications ?Medication ?Instructions ?Recorded ?Confirmed loratadine 10 mg tablet 10 mg PO DAILY PRN allergy symptoms 02/12/23 11/23/23 methadone 150 mg PO DAILY 10/08/23 11/23/23 sertraline 50 mg tablet 50 mg PO Q24H 11/23/23 11/23/23 Previous Rx's ?Medication ?Instructions ?Recorded amoxicillin 875 mg-potassium 1 tab PO Q12H #14 tabs 11/23/23 clavulanate 125 mg tablet doxycycline hyclate 100 mg tablet 100 mg PO BID 7 days #14 tabs 11/23/23 ibuprofen 600 mg tablet 600 mg PO Q8H PRN pain #20 tabs 11/23/23 Allergies Allergy/AdvReac Type Severity Reaction Status Date / Time No Known Drug Allergies Allergy Verified 05/31/24 04:06 Opioid HPI Opioid Management Most Recent Opioid Data: Last Pain Scale 8 04/20/24 10:34 04/20/24 Ur Phencyclidine Scrn Negative (NEGATIVE) 04/20/24 11:31 04/20/24 PFSH PFSH Medical History Methadone maintenance therapy patient ?F11.20 - Opioid dependence, uncomplicated (ICD-10) Social History Smoking status: Former smoker Little interest or pleasure in doing things: not at all Feeling down, depressed, or hopeless: not at all Exam Narrative Exam Narrative: Patient does not appear in any acute distress. Vital signs are stable. He has some fresh blood and blood clot in his mouth which was removed. The site of bleeding was in the right maxillary dentition with post is partly exposed. He has no bleeding from post in the left maxilla. Most of his teeth have been extracted and are missing. Neck is supple. Lung sounds are clear to auscultation bilaterally. Heart has regular rate and rhythm. Abdomen soft and benign. Constitutional Vital Signs, click to edit/add: Last Vital Signs Pulse 95 H 05/31/24 04:00 Resp 16 05/31/24 04:00 BP 115/82 05/31/24 04:00 Pulse Ox 100 05/31/24 04:00 O2 Del Method Room Air 05/31/24 04:00 Course Vital Signs Vital signs: Vital Signs Pulse Rate 95 H 05/31/24 04:00 Respiratory Rate 16 05/31/24 04:00 Blood Pressure 115/82 05/31/24 04:00 Pulse Oximetry 100 05/31/24 04:00 Oxygen Delivery Method Room Air 05/31/24 04:00 Pulse Rate 95 H 05/31/24 04:00 Respiratory Rate 16 05/31/24 04:00 Blood Pressure 115/82 05/31/24 04:00 Pulse Oximetry 100 05/31/24 04:00 Oxygen Delivery Method Room Air 05/31/24 04:00 Medical Decision Making [facility] Narrative Medical decision making narrative: Patient is on anticoagulant therapy and presents with bleeding from his mouth from where a minor dental procedure had been performed. I was able to remove the blood clot that was adherent to this and had him rinse his mouth with ice water. 4 x 4 piece of gauze soaked in TXA was held with pressure against the bleeding site and after about 1/2-hour the bleeding had completely stopped and on reevaluation has not recurred. My plan is to get an ultrasound of the right arm this morning and if he does not have blood clot then hopefully we can have him discontinue his anticoagulant. Care was signed out to oncoming physician at change of shift. Lab Data Labs: Lab Results 05/31/24 Range/Units 04:40 WBC 6.3 (4.0-11.0) 10^3/uL RBC 4.46 L (4.70-6.10) 10^6/uL Hgb 12.4 L (14.0-18.0) g/dL Hct 37.1 L (42.0-54.0) % MCV 83.2 (80.0-94.0) fL MCH 27.8 (25.9-34.0) pg MCHC 33.4 (29.9-35.2) g/dL RDW 13.4 (11.0-15.0) % Plt Count 238 (150-450) 10^3/uL MPV 10.6 (9.5-13.5) fL Neut % (Auto) 52.9 (43.0-75.0) % Lymph % (Auto) 35.9 (20.5-60.0) % [place] % (Auto) 6.5 (1.7-12.0) % Eos % (Auto) 3.5 (0.9-7.0) % Baso % (Auto) 1.0 (0.2-2.0) % Neut # (Auto) 3.3 (1.4-6.5) 10^3/uL Lymph # (Auto) 2.3 (1.2-3.8) 10^3/uL [place] # (Auto) 0.4 (0.3-0.8) 10^3/uL Eos # (Auto) 0.2 (0.0-0.7) 10^3/uL Baso # (Auto) 0.1 (0.0-0.1) 10^3/uL Abs Immat Gran (auto) 0.01 (0.00-0.03) 10^3/uL Imm/Tot Granulo (auto) 0.2 (0.0-0.5) % PT 11.4 (9.0-11.6) sec INR 1.08 APTT 25.8 (22.3-36.2) sec Sodium 140 (136-145) mmol/L Potassium 4.0 (3.5-5.1) mmol/L Chloride 103 (98-107) mmol/L Carbon Dioxide 27.6 (21.0-32.0) mmol/L Anion Gap 13.4 BUN 18.0 (7.0-18.0) mg/dL Creatinine 1.46 H (0.70-1.30) mg/dL Est GFR ( Amer) >60 (>=60 mL/min/1.73m^2) Est GFR (Non-Af Amer) 52 L (>=60 mL/min/1.73m^2) BUN/Creatinine Ratio 12.3 Glucose 127 H (74-106) mg/dL Calcium 9.2 (8.5-10.1) mg/dL Total Bilirubin 0.2 (0.2-1.0) mg/dL AST 25 (15-37) U/L ALT 28 (16-63) U/L Alkaline Phosphatase 64 (46-116) U/L Total Protein 7.7 (6.4-8.2) g/dL Albumin 4.1 (3.4-5.0) g/dL Globulin 3.6 g/dL Albumin/Globulin Ratio 1.1 Discharge Plan Discharge Chief Complaint: Dental/Oral Clinical Impression: Bleeding from mouth Prescriptions / Home Meds: No Action methadone 150 mg PO DAILY sertraline 50 mg tablet 50 mg PO Q24H amoxicillin-pot clavulanate 875-125 mg tablet 1 tab PO Q12H Qty: 14 0RF doxycycline hyclate 100 mg tablet 100 mg PO BID 7 Days Qty: 14 0RF ibuprofen 600 mg tablet 600 mg PO Q8H PRN (Reason: pain) Qty: 20 0RF loratadine 10 mg tablet 10 mg PO DAILY PRN (Reason: allergy symptoms) Print Language: Sammarinese Referrals: [facility] [Primary Care Provider] - 1 week
[2024-05-31 04:49] LABS: Basophils Absolute Auto 0.1 10^3/uL (0.0-0.1); Eosinophils Absolute Auto 0.2 10^3/uL (0.0-0.7); Eosinophils Percent Auto 3.5 % (0.9-7.0); Hematocrit 37.1 % (42.0-54.0); Hemoglobin 12.4 g/dL (14.0-18.0); Immature Granulocytes Abs Auto 0.01 10^3/uL (0.00-0.03); Immature Granulocytes Pct Auto 0.2 % (0.0-0.5); Lymphocytes Absolute Auto 2.3 10^3/uL (1.2-3.8); Lymphocytes Percent Auto 35.9 % (20.5-60.0); Mean Corpuscular HGB Conc 33.4 g/dL (29.9-35.2); Mean Corpuscular Hemoglobin 27.8 pg (25.9-34.0); Mean Corpuscular Volume 83.2 fL (80.0-94.0); Mean Platelet Volume 10.6 fL (9.5-13.5); Monocytes Absolute Auto 0.4 10^3/uL (0.3-0.8); Monocytes Percent Auto 6.5 % (1.7-12.0); Neutrophils Absolute Auto 3.3 10^3/uL (1.4-6.5); Neutrophils Percent Auto 52.9 % (43.0-75.0); Platelet Count 238 10^3/uL (150-450); Red Blood Count 4.46 10^6/uL (4.70-6.10); Red Cell Distribution Width 13.4 % (11.0-15.0); White Blood Count 6.3 10^3/uL (4.0-11.0)
--- NOTE | 2024-05-31 04:52 | PC.NURSE ---
Patient presents to ED with significant bleeding from mouth. Mother explains that he had posts placed for dental implants several months ago. On Wednesday, he went for a follow up, and they found that the skin had grown over the posts, so they cut that skin away in order to be able to place the implants at his next visit. They did not tell him to stop taking his Eliquis prior to this procedure, and last night he started bleeding, and has been bleeding through the night. He has an emesis bag that is aprox. 1/4 full of blood at time of his arrival to the ED. There is a large clot stuck to the right side of his upper mouth, and he states that he has swallowed a lot of blood as well. He is sweating and shaky, with vitals WNL.
[2024-05-31 05:07] LABS: Alanine Aminotransferase 28 U/L (16-63); Albumin Globulin Ratio 1.1; Albumin Level 4.1 g/dL (3.4-5.0); Alkaline Phosphatase 64 U/L (46-116); Anion Gap 13.4; Aspartate Amino Transferase 25 U/L (15-37); BUN Creatinine Ratio 12.3; Bilirubin Total 0.2 mg/dL (0.2-1.0); Calcium 9.2 mg/dL (8.5-10.1); Carbon Dioxide 27.6 mmol/L (21.0-32.0); Chloride 103 mmol/L (98-107); Estimated GFR (African America >60 (>=60 mL/min/1.73m^2); Estimated GFR (Non-African Ame 52 (>=60 mL/min/1.73m^2); Globulin 3.6 g/dL; Glucose 127 mg/dL (74-106); Sodium 140 mmol/L (136-145); Total Protein 7.7 g/dL (6.4-8.2)
[2024-05-31 05:14] LABS: INR 1.08; Partial Thromboplastin Time 25.8 sec (22.3-36.2); Prothrombin Time 11.4 sec (9.0-11.6)
[2024-05-31] MEDS: TRANEXAMIC ACID TOPICAL (05:51)
[2024-05-31] MEDS: SODIUM CHLORIDE 0.9% TOPICAL (05:51)
[2024-05-31 07:32] VITALS: BP 98/56; PULSE 70; O2SAT 98
[2024-05-31 08:12] VITALS: BP 102/57; PULSE 87; O2SAT 98
== END 2024-05-31 08:12 | disposition home or self-care (01) ==
PROVIDERS: Emergency Provider Emergency Medicine; PCP Nurse Practitioner Family
DX: K91.840 Postprocedural hemorrhage of a digestive system organ or structure following a digestive system procedure (principal); Z79.01 Long term (current) use of anticoagulants; Z86.718 Personal history of other venous thrombosis and embolism; Z87.891 Personal history of nicotine dependence
CPT/HCPCS: 36415; 80053; 85025; 85610; 85730; 93971; 99284

== ENCOUNTER 2024-10-09 09:00 | Outpatient (RCR) | payer OTHER, SELFPAY | END 2024-10-24 09:40 | disposition home or self-care (01) | LOC: PT 09:00 | PROVIDERS: PCP Nurse Practitioner Family; Visit Provider Nurse Practitioner Family | DX: M54.50 Low back pain, unspecified (principal) | CPT/HCPCS: 97110; 97162 ==